=== PATIENT | female | born 1945 | race Caucasian/White ===

== ENCOUNTER 2023-04-18 17:41 | Emergency (ER) | payer MEDICARE, OTHER, SELFPAY ==
[2023-04-18 17:57] VITALS: BP 188/89; PULSE 82; RESP 14; TEMP 37.1; O2SAT 97; BMI 31.0
--- NOTE | 2023-04-18 18:12 | ED_ITS ---
HPI - General Adult General Chief complaint: Head Injury Stated complaint: FALL, FACIAL PAIN, EPITAXIS Time Seen by Provider: 04/18/23 18:12 Source: patient Mode of arrival: walk-in Limitations: no limitations History of Present Illness HPI narrative: The patient presented to us after she tripped on the wet grass and fell face downward hitting her nose and face to the floor, the patient started bleeding right away and that was the reason that brought her over here she initially went to an urgent care who told her that she had to come to the ER because she was bleeding The patient bleeding already resolved she does not take any blood thinner and she denied other complaints or any loss of consciousness Related Data Home Medications Medication Instructions Recorded Confirmed amlodipine 5 mg tablet 5 mg PO BID 04/18/23 04/18/23 Previous Rx's Medication Instructions Recorded acetaminophen 650 mg 650 mg PO Q8H PRN pain #20 tabs 04/18/23 tablet,extended release (Tylenol 8 Hour) clindamycin HCl 150 mg capsule 150 mg PO TID #9 caps 04/18/23 Allergies Allergy/AdvReac Type Severity Reaction Status Date / Time Penicillins Allergy Verified 04/18/23 17:56 tetracycline Allergy Verified 04/18/23 17:56 Review of Systems ROS Status of ROS 10 or more systems reviewed and unremarkable except as noted in history and below PFSH PFSH Social History Smoking status: Never smoker Exam Narrative Exam Narrative: Nurses notes and vital signs reviewed and patient is not hypoxic. General: Well-appearing and in no apparent distress. Skin: Warm, dry, no pallor noted. No rash. Head: Normocephalic, the patient have a small abrasion to the nasal bridge there is mild tenderness upon palpation of the nasal bridge and small abrasion just above the upper lip no interseptum hematoma , no deviation of the nasal bridge Neck: Supple, non-tender. Eye: Pupils are equal, round and EOMI. No scleral icterus. Ears, Nose, Mouth, and Throat: TM are clear, no nasal mucosal hypertrophy. Oral mucosa is moist, no posterior oropharynx erythema, uvula is mid-line Cardiovascular: Regular Rate and Rhythm without murmur, gallop or rub. Respiratory: No accessory muscle use or respiratory distress. Lungs are clear to auscultation, no wheezing, rales or rhonchi Chest Wall: no tenderness Back: No midline thoracic or lumbar vertebral tenderness. No CVA tenderness Musculoskeletal: normal ROM, no calf or popliteal tenderness, no lower extremity edema/swelling GI: Abdomen is soft, non-distended. Normal bowel sounds. No masses appreciated. No tenderness to palpation. No rebound, guarding, or rigidity noted. Neurological: A&O x4. No cranial nerve dysfunction observed. No truncal ataxia. Moves all extremities. Sensation intact. Psychiatric: Cooperative and interactive. Normal mood and affect. Constitutional Vital Signs, click to edit/add: Last Vital Signs Temp 98.7 F 04/18/23 17:57 Pulse 82 04/18/23 17:57 Resp 14 04/18/23 17:57 BP 188/89 H 04/18/23 17:57 Pulse Ox 97 04/18/23 17:57 O2 Del Method Room Air 04/18/23 17:57 Course Vital Signs Vital signs: Vital Signs Temperature 98.7 F 04/18/23 17:57 Pulse Rate 82 04/18/23 17:57 Respiratory Rate 14 04/18/23 17:57 Blood Pressure 188/89 H 04/18/23 17:57 Pulse Oximetry 97 04/18/23 17:57 Oxygen Delivery Method Room Air 04/18/23 17:57 Temperature 98.7 F 04/18/23 17:57 Pulse Rate 82 04/18/23 17:57 Respiratory Rate 14 04/18/23 17:57 Blood Pressure 188/89 H 04/18/23 17:57 Pulse Oximetry 97 04/18/23 17:57 Oxygen Delivery Method Room Air 04/18/23 17:57 Medical Decision Making [facility] Narrative Medical decision making narrative: With the patient facial trauma I initially recommended a CAT scan for the face but the patient did not want to go through imaging and I did recommend and then a coverage with clindamycin for 3 days as a prophylaxis in addition to Tylenol for pain and ice treatment The patient to come back in case of any symptoms or concerns her bleeding right now was controlled and she was instructed about coming back in case of any new symptoms and since the patient does not want any imaging right now she can come back to us in couple days in case of any continuous pain The patient is to follow up with primary care physician in next 2-3 days or to return to the emergency department should any of the signs or symptoms worsen or new symptoms develop. The patient agrees with the following Diagnosis and Treatment plan and the patient will be discharged home. Discharge Plan Discharge Chief Complaint: Head Injury Clinical Impression: Blunt trauma of face, Contusion of nose Patient Disposition: Home, Self-Care Time of Disposition Decision: 18:14 Prescriptions / Home Meds: New clindamycin HCl 150 mg capsule 150 mg PO TID Qty: 9 0RF Rx Instructions: for 3 days acetaminophen [Tylenol 8 Hour] 650 mg tablet extended release 650 mg PO Q8H PRN (Reason: pain) Qty: 20 0RF No Action amlodipine 5 mg tablet 5 mg PO BID Instructions: Nosebleed (ED), Nasal Contusion (ED) Stand Alone Forms: Portal Instructions Referrals: Logan Naidu MD [Primary Care Provider] - 1 week
== END 2023-04-18 18:21 | disposition home or self-care (01) ==
PROVIDERS: Emergency Provider Emergency Medicine; PCP Family Medicine
DX: S00.33XA Contusion of nose, initial encounter (principal); S09.93XA Unspecified injury of face, initial encounter; W01.10XA Fall on same level from slipping, tripping and stumbling with subsequent striking against unspecified object, initial encounter; Z79.899 Other long term (current) drug therapy; Z90.49 Acquired absence of other specified parts of digestive tract
CPT/HCPCS: 99283

== ENCOUNTER 2023-07-12 14:09 | Emergency (ER) | payer MEDICARE, OTHER, SELFPAY ==
[2023-07-12 14:15] VITALS: BP 147/78; PULSE 83; RESP 20; TEMP 36.8; O2SAT 99; BMI 31.6
--- NOTE | 2023-07-12 15:18 | ED_ITS ---
HPI - General Adult General Chief complaint: Dental/Oral Stated complaint: LUMPS AND BUMPS TO NECK Time Seen by Provider: 07/12/23 14:26 History of Present Illness HPI narrative: patient is a 78-year-old female who presents to the emergency department for a two day history of swelling on the right side of the jaw. Patient states she had a known salivary stone which was evaluated by ENT in the past. She states occasionally she would feel swelling which would resolve quickly to the area. In the last two days she has noticed very tender, painful swelling under the tongue into the right side of the jaw. She states she felt a stone under her tongue and removed it with a toothpick. She states after removing the stone she has had purulent drainage from under her tongue and she feels as though the area under her tongue in the right side of the jaw or swollen. She has had no fevers or vomiting. She denies any difficulty swallowing or tolerating her secretions. No shortness of breath. Related Data Home Medications Medication Instructions Recorded Confirmed amlodipine 5 mg tablet 5 mg PO BID 04/18/23 04/18/23 Previous Rx's Medication Instructions Recorded acetaminophen 650 mg 650 mg PO Q8H PRN pain #20 tabs 04/18/23 tablet,extended release (Tylenol 8 Hour) clindamycin HCl 150 mg capsule 150 mg PO TID #9 caps 04/18/23 clindamycin HCl 150 mg capsule 300 mg PO Q6H 10 days #80 caps 07/12/23 dexamethasone 4 mg tablet 4 mg PO BID 3 days #6 tabs 07/12/23 hydrocodone 5 mg-acetaminophen 325 1 tab PO Q6H PRN pain #12 tabs 07/12/23 mg tablet ondansetron 4 mg disintegrating 4 mg PO Q6H PRN nausea and 07/12/23 tablet vomiting #12 tabs Allergies Allergy/AdvReac Type Severity Reaction Status Date / Time Penicillins Allergy Verified 04/18/23 17:56 tetracycline Allergy Verified 04/18/23 17:56 Review of Systems ROS Constitutional Denies: fever or chills Ears, nose, mouth, and throat Denies: throat pain Respiratory Denies: shortness of breath or cough Gastrointestinal Denies: nausea or vomiting Musculoskeletal Denies: back pain Integumentary/Breast Denies: rash Hematologic/Lymphatic Denies: easy bruising PFSH PFSH Social History Smoking status: Never smoker Exam Narrative Exam Narrative: Gen.: Awake, alert, in no distress Head: Normocephalic, atraumatic ENT: Moist mucous membranes; soft tissue space under the tongue is soft, salivary gland is edematous with yellow purulence noted at the opening of the salivary gland. Right mandible is edematous and tender, no trismus or drooling. Clear speech Respiratory: No respiratory distress Extremities: Moves extremities equally Psych: Normal mood and affect Neuro: No focal neuro deficit Skin: Warm, dry, intact Constitutional Vital Signs, click to edit/add: Last Vital Signs Temp 98.2 F 07/12/23 14:15 Pulse 83 07/12/23 14:15 Resp 20 07/12/23 14:15 BP 147/78 H 07/12/23 14:15 Pulse Ox 99 07/12/23 14:15 O2 Del Method Room Air 07/12/23 14:15 Course Vital Signs Vital signs: Vital Signs Temperature 98.2 F 07/12/23 14:15 Pulse Rate 83 07/12/23 14:15 Respiratory Rate 20 07/12/23 14:15 Blood Pressure 147/78 H 07/12/23 14:15 Pulse Oximetry 99 07/12/23 14:15 Oxygen Delivery Method Room Air 07/12/23 14:15 Temperature 98.2 F 07/12/23 14:15 Pulse Rate 83 07/12/23 14:15 Respiratory Rate 20 07/12/23 14:15 Blood Pressure 147/78 H 07/12/23 14:15 Pulse Oximetry 99 07/12/23 14:15 Oxygen Delivery Method Room Air 07/12/23 14:15 Medical Decision Making MDM Narrative Medical decision making narrative: patient treated with IV fluids, clindamycin, Decadron. Lab studies are unremarkable and CT soft tissue of the neck show sialoadenitis with no evidence of William angina or submandibular soft tissue infection. Patient will be placed on clindamycin as she is ALLERGIC to penicillin, short course of Decadron given for home. She has a known thyroid lesion that is currently being evaluated by ENT and she has an upcoming appointment for follow-up of this area. She is encouraged to take her antibiotics, apply warm compresses to the right mandibular area and return to the Emergency Room if symptoms change or worsen Medical Records Medical records reviewed: Yes I reviewed the patient's medical records Lab Data Lab results reviewed: Yes I reviewed the patient's lab results Labs: Lab Results 07/12/23 Range/Units 15:30 WBC 11.7 H (4.0-11.0) 10^3/uL RBC 4.02 L (4.20-5.40) 10^6/uL Hgb 12.3 (12.0-16.0) g/dL Hct 37.5 (36.0-48.0) % MCV 93.3 (81.0-99.0) fL MCH 30.6 (26.7-34.0) pg MCHC 32.8 (29.9-35.2) g/dL RDW 13.0 (11.0-15.0) % Plt Count 197 (150-450) 10^3/uL MPV 11.3 (9.5-13.5) fL Neut % (Auto) 73.1 (43.0-75.0) % Lymph % (Auto) 16.5 L (20.5-60.0) % Grayson % (Auto) 7.4 (1.7-12.0) % Eos % (Auto) 2.3 (0.9-7.0) % Baso % (Auto) 0.5 (0.2-2.0) % Neut # (Auto) 8.5 H (1.4-6.5) 10^3/uL Lymph # (Auto) 1.9 (1.2-3.8) 10^3/uL Grayson # (Auto) 0.9 H (0.3-0.8) 10^3/uL Eos # (Auto) 0.3 (0.0-0.7) 10^3/uL Baso # (Auto) 0.1 (0.0-0.1) 10^3/uL Abs Immat Gran (auto) 0.02 (0.00-0.03) 10^3/uL Imm/Tot Granulo (auto) 0.2 (0.0-0.5) % Sodium 135 L (136-145) mmol/L Potassium 3.7 (3.5-5.1) mmol/L Chloride 101 (98-107) mmol/L Carbon Dioxide 24.3 (21.0-32.0) mmol/L Anion Gap 13.4 BUN 24.0 H (7.0-18.0) mg/dL Creatinine 1.20 H (0.55-1.02) mg/dL Est GFR ( Amer) 52 L (>=60) Est GFR (Non-Af Amer) 43 L (>=60) BUN/Creatinine Ratio 20.0 Glucose 95 (74-106) mg/dL Calcium 10.1 (8.5-10.1) mg/dL Imaging Data CT neck: Attestation: I have reviewed the pertinent imaging results. Radiologist's impression: Procedure: CT soft tissue neck w con CT soft tissue neck w con, 07/12/2023 4:56 PM EDT INDICATION: Soft tissue infection right jaw COMPARISON: There is no appropriate prior study for comparison. TECHNIQUE: CT imaging of the neck were acquired without and with contrast. Supplemental 2D reformatted images were generated and reviewed as needed. Dose reduction techniques were achieved by using automated exposure control and/or adjustment of mA and/or kV according to patient size and/or use of iterative reconstruction technique. FINDINGS: There is status post bilateral lens replacement. The sensitivity of study has been decreased due to streak artifacts from dental fillings. No abnormality of the base of skull is noted. The right submandibular gland is mildly larger than left with mild adjacent fatty stranding and no definite lesion or sialolithiasis. Mild left submandibular nonobstructive sialolithiasis is noted. There is mild fatty stranding in the right submandibular region with multiple level 1B lymph nodes measuring up to 1.1 cm in the largest axis. No fluid collection is noted. The nasopharynx, oropharynx, hypopharynx and oral cavity are unremarkable. The parotids are unremarkable. The larynx is unremarkable. No abnormality of paraglottic fat is noted. There is no other lymph node enlargement by size criteria. No retropharyngeal lymph node is noted. The thyroid gland is containing multiple nodules up to 1.5 cm nodule in the right lobe. The visualized portions of lungs are unremarkable. There is no suspicious osteolytic or osteoblastic lesion. There are multilevel degenerative changes of cervical spine. Moderate degenerative changes of the right TMJ. IMPRESSION: Enlargement of the right submandibular gland with mild fatty stranding and adjacent lymphadenopathy likely suggesting of sialoadenitis. No fluid collection. No sialolithiasis on the right. Right large thyroid nodule. An ultrasound is recommended for further evaluation. Electronically authenticated by: MARLENY SEBLE Date: 07/12/2023 18:14 Discharge Plan Discharge Chief Complaint: Dental/Oral Clinical Impression: Acute sialoadenitis, Atypical face pain Patient Disposition: Home, Self-Care Time of Disposition Decision: 18:37 Condition: Good Prescriptions / Home Meds: New clindamycin HCl 150 mg capsule 300 mg PO Q6H 10 Days Qty: 80 0RF dexamethasone 4 mg tablet 4 mg PO BID 3 Days Qty: 6 0RF hydrocodone-acetaminophen 5-325 mg tablet 1 tab PO Q6H PRN (Reason: pain) Qty: 12 0RF Rx Instructions: DX K11.20 ondansetron 4 mg tablet,disintegrating 4 mg PO Q6H PRN (Reason: nausea and vomiting) Qty: 12 0RF No Action amlodipine 5 mg tablet 5 mg PO BID clindamycin HCl 150 mg capsule 150 mg PO TID Qty: 9 0RF Rx Instructions: for 3 days acetaminophen [Tylenol 8 Hour] 650 mg tablet extended release 650 mg PO Q8H PRN (Reason: pain) Qty: 20 0RF Instructions: Sialoadenitis (ED), Atypical Facial Pain (ED) Additional Instructions: PLEASE TAKE A PROBIOTIC WITH YOUR ANTIBIOTIC AND FOLLOW UP WITH YOUR ENT SCHEDULED Stand Alone Forms: Portal Instructions Referrals: Logan Naidu MD [Primary Care Provider] - 1 week
[2023-07-12] MEDS: DEXAMETHASONE SOD PHOS 10 MG/ML VIAL IV (15:39)
[2023-07-12] MEDS: CLINDAMYCIN PHOSPHATE/D5W 600 MG/50 ML PIGGYBACK 100 MG IV (15:39)
[2023-07-12 15:55] LABS: Basophils Absolute Auto 0.1 10^3/uL (0.0-0.1); Basophils Percent Auto 0.5 % (0.2-2.0); Eosinophils Absolute Auto 0.3 10^3/uL (0.0-0.7); Eosinophils Percent Auto 2.3 % (0.9-7.0); Hematocrit 37.5 % (36.0-48.0); Hemoglobin 12.3 g/dL (12.0-16.0); Immature Granulocytes Abs Auto 0.02 10^3/uL (0.00-0.03); Immature Granulocytes Pct Auto 0.2 % (0.0-0.5); Lymphocytes Absolute Auto 1.9 10^3/uL (1.2-3.8); Lymphocytes Percent Auto 16.5 % (20.5-60.0); Mean Corpuscular HGB Conc 32.8 g/dL (29.9-35.2); Mean Corpuscular Hemoglobin 30.6 pg (26.7-34.0); Mean Corpuscular Volume 93.3 fL (81.0-99.0); Mean Platelet Volume 11.3 fL (9.5-13.5); Monocytes Absolute Auto 0.9 10^3/uL (0.3-0.8); Monocytes Percent Auto 7.4 % (1.7-12.0); Neutrophils Absolute Auto 8.5 10^3/uL (1.4-6.5); Neutrophils Percent Auto 73.1 % (43.0-75.0); Platelet Count 197 10^3/uL (150-450); Red Blood Count 4.02 10^6/uL (4.20-5.40); White Blood Count 11.7 10^3/uL (4.0-11.0)
[2023-07-12 16:40] LABS: Anion Gap 13.4; Calcium 10.1 mg/dL (8.5-10.1); Carbon Dioxide 24.3 mmol/L (21.0-32.0); Chloride 101 mmol/L (98-107); Estimated GFR (African America 52 (>=60); Estimated GFR (Non-African Ame 43 (>=60); Glucose 95 mg/dL (74-106); Potassium 3.7 mmol/L (3.5-5.1); Sodium 135 mmol/L (136-145)
--- NOTE | 2023-07-12 17:04 | CT_ITS ---
The [address] [address] Patient Name: ALEKSANDER KIRKPATRICK MRN: [id number] date: 1945 Sex: F Assigned Patient Location: ER Current Patient Location: Accession/Order Number: [id number] Exam Date: 07/12/2023 16:56 Report Date: 07/12/2023 18:14 At the request of: FACUNDO SANON Procedure: CT soft tissue neck w con CT soft tissue neck w con, 07/12/2023 4:56 PM EDT INDICATION: Soft tissue infection right jaw COMPARISON: There is no appropriate prior study for comparison. TECHNIQUE: CT imaging of the neck were acquired without and with contrast. Supplemental 2D reformatted images were generated and reviewed as needed. Dose reduction techniques were achieved by using automated exposure control and/or adjustment of mA and/or kV according to patient size and/or use of iterative reconstruction technique. FINDINGS: There is status post bilateral lens replacement. The sensitivity of study has been decreased due to streak artifacts from dental fillings. No abnormality of the base of skull is noted. The right submandibular gland is mildly larger than left with mild adjacent fatty stranding and no definite lesion or sialolithiasis. Mild left submandibular nonobstructive sialolithiasis is noted. There is mild fatty stranding in the right submandibular region with multiple level 1B lymph nodes measuring up to 1.1 cm in the largest axis. No fluid collection is noted. The nasopharynx, oropharynx, hypopharynx and oral cavity are unremarkable. The parotids are unremarkable. The larynx is unremarkable. No abnormality of paraglottic fat is noted. There is no other lymph node enlargement by size criteria. No retropharyngeal lymph node is noted. The thyroid gland is containing multiple nodules up to 1.5 cm nodule in the right lobe. The visualized portions of lungs are unremarkable. There is no suspicious osteolytic or osteoblastic lesion. There are multilevel degenerative changes of cervical spine. Moderate degenerative changes of the right TMJ. CT/CT soft tissue neck w con IMPRESSION: Enlargement of the right submandibular gland with mild fatty stranding and adjacent lymphadenopathy likely suggesting of sialoadenitis. No fluid collection. No sialolithiasis on the right. Right large thyroid nodule. An ultrasound is recommended for further evaluation. Electronically authenticated by: MARLENY PRUETT Date: 07/12/2023 18:14
== END 2023-07-12 18:49 | disposition home or self-care (01) ==
PROVIDERS: Physician Assistant; Emergency Provider Emergency Medicine; PCP Family Medicine
DX: K11.21 Acute sialoadenitis (principal); G50.1 Atypical facial pain
CPT/HCPCS: 36415; 70491; 80048; 85025; 96365; 96375; 99285; J1100; Q9967

== ENCOUNTER 2024-02-15 15:45 | Emergency (ER) | payer MEDICARE, OTHER, SELFPAY ==
[2024-02-15 16:00] VITALS: BP 170/81; PULSE 74; TEMP 36.9; O2SAT 98
--- NOTE | 2024-02-15 18:06 | ED.SKABFB1 ---
HPI - Skin/Abscess/Foreign Bdy General Chief complaint: Skin/Abscess/Foreign Body Stated complaint: LUMP Back of NECK Time Seen by Provider: 02/15/24 17:43 Source: patient Mode of arrival: walk-in Limitations: no limitations History of Present Illness HPI narrative: Patient is an 79-year-old female who presents to the emergency department for continued swelling and pain to the back of the scalp. She was seen for suspected bug bites at urgent care 2 days ago and started on Keflex. She states her pain was worse today and she returned to urgent care but they sent her to the ER. She has had no fevers or vomiting. No drainage from the area. Related Data Home Medications ?Medication ?Instructions ?Recorded ?Confirmed amlodipine 5 mg tablet 5 mg PO BID 04/18/23 04/18/23 Previous Rx's ?Medication ?Instructions ?Recorded acetaminophen 650 mg 650 mg PO Q8H PRN pain #20 tabs 04/18/23 tablet,extended release (Tylenol 8 Hour) clindamycin HCl 150 mg capsule 150 mg PO TID #9 caps 04/18/23 clindamycin HCl 150 mg capsule 300 mg (2 x 150 mg) PO Q6H 10 days 07/12/23 #80 caps dexamethasone 4 mg tablet 4 mg PO BID 3 days #6 tabs 07/12/23 hydrocodone 5 mg-acetaminophen 325 1 tab PO Q6H PRN pain #12 tabs 07/12/23 mg tablet ondansetron 4 mg disintegrating 4 mg PO Q6H PRN nausea and 07/12/23 tablet vomiting #12 tabs clindamycin HCl 150 mg capsule 300 mg (2 x 150 mg) PO Q6H 10 days 02/15/24 #80 caps hydrocodone 5 mg-acetaminophen 325 1 tab PO Q6H PRN pain 3 days #12 02/15/24 mg tablet tabs mupirocin 2 % topical ointment 1 applic topical BID #15 grams 02/15/24 Allergies Allergy/AdvReac Type Severity Reaction Status Date / Time Penicillins Allergy Verified 04/18/23 17:56 tetracycline Allergy Verified 04/18/23 17:56 Review of Systems ROS Constitutional Denies: fever or chills Ears, nose, mouth, and throat Denies: throat pain or nasal congestion Respiratory Denies: shortness of breath Gastrointestinal Denies: nausea or vomiting Integumentary/Breast Denies: rash Neurological Denies: headache Hematologic/Lymphatic Denies: easy bruising or easy bleeding PFSH PFSH Social History Smoking status: Never smoker Exam Narrative Exam Narrative: Gen.: Awake, alert, in no distress Head: Normocephalic, atraumatic, Posterior scalp at the base of the skull with a red erythematous indurated area, central folliculitis and 2 small follicular areas inferiorly. No fluctuance or open wounds or drainage. ENT: Moist mucous membranes Respiratory: No respiratory distress Extremities: Moves extremities equally Psych: Normal mood and affect Neuro: No focal neuro deficit Skin: Warm, dry, intact Constitutional Vital Signs, click to edit/add: Last Vital Signs Temp 98.4 F 02/15/24 16:00 Pulse 74 02/15/24 16:00 Resp 17 02/15/24 16:00 BP 170/81 H 02/15/24 16:00 Pulse Ox 98 02/15/24 16:00 Course Vital Signs Vital signs: Vital Signs Temperature 98.4 F 02/15/24 16:00 Pulse Rate 74 02/15/24 16:00 Respiratory Rate 17 02/15/24 16:00 Blood Pressure 170/81 H 02/15/24 16:00 Pulse Oximetry 98 02/15/24 16:00 Temperature 98.4 F 02/15/24 16:00 Pulse Rate 74 02/15/24 16:00 Respiratory Rate 17 02/15/24 16:00 Blood Pressure 170/81 H 02/15/24 16:00 Pulse Oximetry 98 02/15/24 16:00 MDM - Skin/Abscess/Foreign Bdy MDM Narrative Medical decision making narrative: Exam is consistent with indurated abscess, no indication for incision and drainage at this time, I suspect the patient has folliculitis and she will be given you Perot send in addition to clindamycin and pain medication. Continue warm compresses and follow-up with PCP as scheduled. Return to the ER if symptoms change or worsen Medical Records Attestation: I reviewed the patient's medical records. Discharge Plan Discharge Stand Alone Forms: Portal Instructions Chief Complaint: Skin/Abscess/Foreign Body Clinical Impression: Folliculitis Patient Disposition: Home, Self-Care Time of Disposition Decision: 18:04 Condition: Good Prescriptions / Home Meds: New clindamycin HCl 150 mg capsule 300 mg PO Q6H 10 Days Qty: 80 0RF hydrocodone-acetaminophen 5-325 mg tablet 1 tab PO Q6H PRN (Reason: pain) 3 Days Qty: 12 0RF Rx Instructions: L66.2 mupirocin 2 % ointment 1 applic topical BID Qty: 15 0RF No Action amlodipine 5 mg tablet 5 mg PO BID clindamycin HCl 150 mg capsule 150 mg PO TID Qty: 9 0RF Rx Instructions: for 3 days acetaminophen [Tylenol 8 Hour] 650 mg tablet extended release 650 mg PO Q8H PRN (Reason: pain) Qty: 20 0RF clindamycin HCl 150 mg capsule 300 mg PO Q6H 10 Days Qty: 80 0RF dexamethasone 4 mg tablet 4 mg PO BID 3 Days Qty: 6 0RF hydrocodone-acetaminophen 5-325 mg tablet 1 tab PO Q6H PRN (Reason: pain) Qty: 12 0RF Rx Instructions: DX K11.20 ondansetron 4 mg tablet,disintegrating 4 mg PO Q6H PRN (Reason: nausea and vomiting) Qty: 12 0RF Print Language: Belarusian Instructions: Folliculitis (ED), Abscess (ED) Additional Instructions: Please continue warm compresses -Stop keflex and start Clindamycin Referrals: Logan Naidu MD [Primary Care Provider] - 1 week
[2024-02-15 18:11] VITALS: BP 155/88
== END 2024-02-15 18:11 | disposition home or self-care (01) ==
PROVIDERS: Emergency Provider Emergency Medicine; PCP Family Medicine
DX: L73.9 Follicular disorder, unspecified (principal)
CPT/HCPCS: 99283

== ENCOUNTER 2024-04-23 09:46 | Outpatient (RCR) | payer MEDICARE, OTHER, SELFPAY | END 2024-07-25 12:57 | disposition home or self-care (01) | LOC: PT 09:46 | PROVIDERS: PCP Family Medicine; Visit Provider Family Medicine | DX: R26.81 Unsteadiness on feet (principal) | CPT/HCPCS: 97012; 97110; 97112; 97113; 97140; 97162 ==

== ENCOUNTER 2025-03-06 08:57 | Emergency (ER) | payer MEDICARE, SELFPAY ==
--- OUTSIDE RECORDS SUMMARY | 2025-02-28 06:55 | XMS_ITS | Continuity of Care Document ---
Author Organization [facility] Address [address] [place] [address] Phone Support Name Relationship Address Phone Kaylyn Galvin Emergency Contact [address] [place] [address] Logan Naidu MD Personal Relationship [address] [facility] [place] [address] Brielle Salmon APRN Personal Relationship [address] [facility] [place] [address] Care Teams Patient Care Team Team Status: Active Member Role Status Dates Logan Naidu MD Primary Care Provider Active Patient Care Team Team Status: Inactive Member Role Status Dates Logan Naidu MD Primary Care Provider Active S tart: February 28, 2025 End: February 28, 2025 MIGUELANGEL Ravi RN HEEL STIFFENER-C Attending Provider Active Start: February 28 End: February 28, 2025 Chief Complaint and Reason for Visit Chief Complaint Admit Date Pain down left side back to leg February 10:31am Allergies, Adverse Reactions, Alerts Allergen Type Severity Reaction Last Updated Verified Status penicillin G benzathine Allergy Unknown unknown February 28, 2025 10:32am Yes Active tetracycline Allergy Unknown anaphylaxis February 28 10:32am Yes Active Penicillins Allergy Unknown Unknown Reaction February 10:32am Yes Active Tetracyclines Allergy Unknown Rash February 28 10:32am Yes Active Social History Smoking Status Status Start Date End Date Date of Observa tion Never smoked tobacco (finding) March 25, 2024 2:00pm Observation Status Observation Response Date of Response Patient Sex Female February 28, 2025 1 0:55am Assigned Sex Female [birth year], 1 944 Family History Relationship Condition Age at Onset Recorded Date/T ervin father Heart disease Unknown Unknown mother Unknown Problems Active Problems Medical Problem Onset Date Status Chronic kidney disease, stage 3b Active Abscess or cellulitis of scalp A ctive Cancer, colon Active Chronic kidney disease, stage 3 unspecified Active Anemia Active Hyperuricemia Active Hyponatremia Active Nephrolithiasis Active Burning mouth syndrome Active High blood pressure Active Hypertensive nephropathy Active Hypomagnesemia Active Hypercalcemia Active Medications Medication Status Dose Units Route Directions Qty Days St art Date Stop Date End Date Instructions Amlodipine 5 mg tablet Active 5 MG PO Twice daily February 13, 2024 12:00a m Magnesium Oxide 250 mg magnesium tablet Active 1 TAB PO Daily February 13, 2024 12:00a m FreeTextSi tablet with a meal Orally Once a day; Note: Source Status: Taking; Provider: Andrés Babin ( ) Aspirin 81 mg tablet,delay ed release (DR/EC) Discont inued 81 MG PO Daily February 13, 2024 12:00a m February 28, 2025 10:42 am Multivitamin (Daily Multi-Vitami n) tablet Discont inued 1 TAB PO Daily February 13, 2024 12:00a m 2024 11:26 am Albuterol Sulfate 90 mcg/actuatio n HFA aerosol inhaler Discont inued 2 PUFF INHALA TION Four times daily February 13, 2024 12:00a m March 25, 2024 1:56p m FreeTextSi puffs Inhalation 4 times a day prn; Note: Source Status: Not-Takingund efinedPRN; Refills: 0; Provider: Leora Kerr Zinc Sulfate 50 mg zinc (220 mg) tablet Discont inued 50 MG PO Twice daily February 13, 2024 12:00a m March 25, 2024 1:57p m Cephalexin 500 mg capsule Discont inued 500 MG PO Three times daily 13 04February 13, 2024 12:00a m March 25, 2024 1:55p m Zinc Sulfate 50 mg zinc (220 mg) tablet Discont inued 50 MG PO Once March 25, 2024 1:56pm February 28, 2025 10:42 am Carvedilol 6.25 mg tablet Active MG PO February 28, 2025 12:00a m Immunizations Immunization Event Date Not Given Reason Dose Number Visual Merchandising Manager Lot Number Vaccine Information Statement (VIS) Detail COVID-19 mRNA-1273 (Moderna) November 11, 2020 COVID-19 mRNA-1273 (Moderna) December 07, 2020 COVID-19 mRNA-1273 (Moderna) August 02, 2021 COVID-19 mRNA Bivalent Booster (Moderna) September 28, 2022 Vital Signs Vital Reading Result Reference Range Collection Date/Time Height 61 [in_i] February 28, 2025 10:42am Weight 77.33 kg February 28, 2025 10:42am Body Temperature 97.9 [degF] 97.6-99.0 February 28, 2 025 10:42am Heart Rate 68 /min 60-100 February 28, 2025 10:42am Respiratory rate 19 /min 12-24 February 28, 2 025 10:42am Oxygen saturation by Pulse oximetry 98 % 95-100 February 28, 2025 10:42 am BP Systolic 130 mm[Hg] 100-140 February 28, 2025 10:42am BP Diastolic 70 mm[Hg] 60-100 February 28, 2025 10:42am BMI (Body Mass Index) 32.2 kg/m2 February 282024 10:42am Advance Directives Advance Directive Response Recorded Date/ Time Advance Directives No July 25, 2023 5:40pm Insurance Providers Guarantor Lisa Barger Address [address] [place] [phone] Contact Info. Home Phone: Payer Policy Id Coverage Id Subscriber's Name Subscriber Id Effective Date Expiration Date Medicare [id number] Lisa Barger [id number] [employer] SSI [id number] Lisa Barger [id number] Encounters Encounter Location(s) Arrival/Admit Date Discharge/Depart Date Provider(s) Departed Physician/Prov ider Office Visit [facility] [place] February 28, 2025 10:31am February 28, 2025 10:55am Brielle Salmon APRN
[2025-03-06 09:04] VITALS: BP 172/68; PULSE 69; TEMP 36.4; O2SAT 98; BMI 31.9
--- OUTSIDE RECORDS SUMMARY | 2025-03-06 09:10 | XMS_ITS | Encounter Summary ---
Author Organization [facility] Address [address] [place] [address] Care Team Providers Care Coil Repair Technician Name Role Phone Saul Turner Primary Care Provider + [phone] Anamika Moore RN Unavailable [phone] Logan Naidu MD Primary Care Provider [phone] Source Comments In the event this information is protected by the Federal Confidentiality of Alcohol and Drug AbusePatient Records regulations: The Federal rules restrict any use of the information to criminally investigate or prosecute any alcohol or drug abuse patient.[facility] Encounter Details Date Type Department Care Team (Late st Contact Info) Description 07/14/2014 Patient Msg Medical Records [address] [place] [address] Provider, Cc RE: Patient Registration Completed Social History Tobacco Use Types Packs/Day Years Used Date Smoking Tobacco: Never Smokeless Tobacco: Never Alcohol Use Standard Drinks/Week Comments No 0 (1 standard drink = 0.6 oz pur e alcohol) Comments No Sex and Gender Information Value Date Recorded Sex Assigned at Female 05/01/2019 10:09 PM EDT Legal Sex Female 1:57 PM EDT Gender Identity Female 05/01/2019 10:09 PM EDT Sexual Orientation Straight 05/01/2019 10 :09 PM EDT documented as of this encounter Functional Status * Are you deaf or do you have serious difficulty hearing? Answer Date of Assessment Author No 07/07/2014 9:39 AM EDT Aj Kincaid (Rn)(Hist), RN * Are you blind or do you have serious difficulty seeing, even when wearing glasses? Answer Date of Assessment Author No 07/07/2014 9:39 AM EDT Aj Kincaid (Rn)(Hist), RN * Do you have serious difficulty walking or climbing stairs? Answer Date of Assessment Author No 07/07/2014 9:39 AM EDT Aj Kincaid (Rn)(Hist), RN * Do you have difficulty dressing or bathing? Answer Date of Assessment Author No 07/07/2014 9:39 AM EDT Aj Kincaid (Rn)(Hist), RN * Because of a physical, mental, or emotional condition, do you have difficulty doing errands alone such as visiting a doctor's office or shopping? Answer Date of Assessment Author No 07/07/2014 9:39 AM EDT Aj Kincaid (Rn)(Hist), RN documented as of this encounter Mental Status * Because of a physical, mental, or emotional condition, do you have serious difficulty concentrating, remembering, or making decisions? Answer Entry Date Author No 07/07/2014 9:39 AM EDT Aj Kincaid (Rn)(Hist), RN documented in this encounter Plan of Treatment Upcoming Encounters Date Type Department Care Team (Late st Contact Info) Description 07/23/2025 9:00 AM EDT Office Visit [facility] [address] [facility] [place] [address] 1 year follow up 07/30/2025 10:00 AM EST Visit (SP) Office Hematology/Oncology [address] [place] [address] Arnol Martinez MD [address] [facility] [place] [address] 1 year follow up documented as of this encounter Visit Diagnoses Not on filedocumented in this encounter Care Teams Coil Repair Technician Relationship Specialty Start Date End Date Saul Turner [address] [place] [phone] PCP - General Family Medicine 07/15/13 12/14/20 Logan Naidu MD [address] [place] [address] PCP - General Family Medicine 12/15/20 Anamika Moore, RN [address] [place] [address] Transitional Lecturer In Marketing 03/02/15 03/09/15 documented as of this encounter
--- OUTSIDE RECORDS SUMMARY | 2025-03-06 09:10 | XMS_ITS | Encounter Summary ---
Author Organization [facility] Address [address] [place] [address] Care Team Providers Care Medical Assembler Name Role Phone Logan Naidu MD Primary Care Provider [phone] Source Comments In the event this information is protected by the Federal Confidentiality of Alcohol and Drug AbusePatient Records regulations: The Federal rules restrict any use of the information to criminally investigate or prosecute any alcohol or drug abuse patient.[facility] Encounter Details Date Type Department Care Team (Late st Contact Info) Description 10/09/2023 Patient Msg Colorectal Surgery [address] [place] [id number] Provider, Ccf Study Survey Social History Tobacco Use Types Packs/Day Years Used Date Smoking Tobacco: Never Smokeless Tobacco: Never Alcohol Use Standard Drinks/Week Comments No 0 (1 standard drink = 0.6 oz pur e alcohol) PHQ-2 Answer Date Recorded PHQ-2 score 0 07/31/2023 Area Deprivation Index Answer Date Michael rded National Score (1-100), lower number is lower ri sk 76 01/25/2023 State Score (1-10), lower number is lower risk 6 01/25/2023 Data from: https://www.neighborhoodatlas.medicine.[facility]/. Last address used for calculation [address] 01/25/2023 Comments No Sex and Gender Information Value Date Recorded Sex Assigned at Female 05/01/2019 10:09 PM EDT Legal Sex Female 1:57 PM EDT Gender Identity Female 05/01/2019 10:09 PM EDT Sexual Orientation Straight 05/01/2019 10 :09 PM EDT documented as of this encounter Functional Status * Are you deaf or do you have serious difficulty hearing? Answer Date of Assessment Author No 04/26/2015 3:23 PM EDT Singh Whitt * Are you blind or do you have serious difficulty seeing, even when wearing glasses? Answer Date of Assessment Author No 04/26/2015 3:23 PM EDT Singh Whitt * Do you have serious difficulty walking or climbing stairs? Answer Date of Assessment Author No 04/26/2015 3:23 PM EDT Singh Whitt * Do you have difficulty dressing or bathing? Answer Date of Assessment Author No 04/26/2015 3:23 PM EDT Singh Whitt * Because of a physical, mental, or emotional condition, do you have difficulty doing errands alone such as visiting a doctor's office or shopping? Answer Date of Assessment Author No 04/26/2015 3:23 PM EDT Singh Whitt documented as of this encounter Mental Status * Because of a physical, mental, or emotional condition, do you have serious difficulty concentrating, remembering, or making decisions? Answer Entry Date Author No 04/26/2015 3:23 PM EDT Singh Whitt documented in this encounter Plan of Treatment Upcoming Encounters Date Type Department Care Team (Late st Contact Info) Description 07/23/2025 9:00 AM EDT Office Visit [facility] [address] [facility] [address] 1 year follow up 07/30/2025 10:00 AM EST Visit (SP) Office Hematology/Oncology [address] [place] [address] Arnol Martinez MD [address] [address] 1 year follow up documented as of this encounter Visit Diagnoses Not on filedocumented in this encounter Care Teams Medical Assembler Relationship Specialty Start Date End Date Logan Naidu MD [address] [place] [address] PCP - General Family Medicine 12/15/20 documented as of this encounter
--- OUTSIDE RECORDS SUMMARY | 2025-03-06 09:10 | XMS_ITS | Encounter Summary ---
Author Organization [facility] Address [address] [place] [address] Care Team Providers Care Sales Superintendent Name Role Phone Saul Turner Primary Care Provider + [phone] Anamika Moore RN Unavailable [phone] Logan Naidu MD Primary Care Provider [phone] Source Comments In the event this information is protected by the Federal Confidentiality of Alcohol and Drug AbusePatient Records regulations: The Federal rules restrict any use of the information to criminally investigate or prosecute any alcohol or drug abuse patient.[facility] Encounter Details Date Type Department Care Team (Late st Contact Info) Description 08/20/2013 Patient Msg Medical Records [address] [place] [address] Provider, Ccf [facility] Medical Procedure Social History Tobacco Use Types Packs/Day Years Used Date Smoking Tobacco: Never Alcohol Use Standard Drinks/Week Comments No 0 (1 standard drink = 0.6 oz pur e alcohol) Comments No Sex and Gender Information Value Date Recorded Sex Assigned at Female 05/01/2019 10:09 PM EDT Legal Sex Female 1:57 PM EDT Gender Identity Female 05/01/2019 10:09 PM EDT Sexual Orientation Straight 05/01/2019 10 :09 PM EDT documented as of this encounter Plan of Treatment Upcoming Encounters Date Type Department Care Team (Late st Contact Info) Description 07/23/2025 9:00 AM EDT Office Visit [facility] [address] [place] [address] [place] [address] 1 year follow up 07/30/2025 10:00 AM EST Visit (SP) Office Hematology/Oncology [address] [place] [address] Arnol Martinez MD [address] [place] [address] [place] [address] 1 year follow up documented as of this encounter Visit Diagnoses Not on filedocumented in this encounter Care Teams Sales Superintendent Relationship Specialty Start Date End Date Saul Turner [address] [place] [phone] PCP - General Family Medicine 07/15/13 12/14/20 Logan Naidu MD [address] [place] [address] PCP - General Family Medicine 12/15/20 Anamika Moore, RN [address] [phone] Transitional Paper Sales Representative 03/02/15 03/09/15 documented as of this encounter
--- OUTSIDE RECORDS SUMMARY | 2025-03-06 09:10 | XMS_ITS | Encounter Summary ---
Author Organization [facility] Address [address] [place] [address] Care Team Providers Care Mechanical Developer Prover Name Role Phone Logan Naidu MD Primary Care Provider [phone] Source Comments In the event this information is protected by the Federal Confidentiality of Alcohol and Drug AbusePatient Records regulations: The Federal rules restrict any use of the information to criminally investigate or prosecute any alcohol or drug abuse patient.[facility] Encounter Details Date Type Department Care Team (Late st Contact Info) Description 12/04/2022 Patient Msg Endocrinology [address] [place], [place] [id number] Ghazala Humphrey MD [address] [place] [address] Test results Social History Tobacco Use Types Packs/Day Years Used Date Smoking Tobacco: Never Smokeless Tobacco: Never Alcohol Use Standard Drinks/Week Comments No 0 (1 standard drink = 0.6 oz pur e alcohol) PHQ-2 Answer Date Recorded PHQ-2 score 0 07/24/2022 Area Deprivation Index Answer Date Michael rded National Score (1-100), lower number is lower ri sk 71 10/21/2022 State Score (1-10), lower number is lower risk N ot on file 10/21/2022 Data from: https://www.neighborhoodatlas.medicine.[facility]/. Last address used for calculation [address] 10/21/2022 Comments No Sex and Gender Information Value [...] No 04/26/2015 3:23 PM EDT Singh Whitt isnora * Are you blind or do you have serious difficulty seeing, even when wearing glasses? Answer Date of Assessment Author No 04/26/2015 3:23 PM EDT Singh Whitt ise * Do you have serious difficulty walking or climbing stairs? Answer Date of Assessment Author No 04/26/2015 3:23 PM EDT Singh Whitt ise * Do you have difficulty dressing or bathing? Answer Date of Assessment Author No 04/26/2015 3:23 PM EDT Singh Whitt ise * Because of a physical, mental, or emotional condition, do you have difficulty doing errands alone such as visiting a doctor's office or shopping? Answer Date of Assessment Author No 04/26/2015 3:23 PM EDT Singh Whitt isnora documented as of this encounter Mental Status * Because of a physical, mental, or emotional condition, do you have serious difficulty concentrating, remembering, or making decisions? Answer Entry Date Author No 04/26/2015 3:23 PM EDT Singh Whitt documented in this encounter Plan of Treatment Upcoming Encounters Date Type Department Care Team (Late st Contact Info) Description 07/23/2025 9:00 AM EDT Office Visit [facility] [address] [facility] [place] [address] 1 year follow up 07/30/2025 10:00 AM EST Visit (SP) Office Hematology/Oncology [address] [facility] [place] [address] Arnol Martinez MD [address] [place] [address] [place] [address] 1 year follow up documented as of this encounter Visit Diagnoses Not on filedocumented in this encounter Care Teams Mechanical Developer Prover Relationship Specialty Start Date End Date Logan Naidu MD [address] [place] [address] PCP - General Family Medicine 12/15/20 documented as of this encounter
--- OUTSIDE RECORDS SUMMARY | 2025-03-06 09:10 | XMS_ITS | Encounter Summary ---
Author Organization [facility] Address [address] [place] [address] Care Team Providers Care Cane Piler Name Role Phone Saul Turner Omar Primary Care Provider [phone] Logan Naidu MD Primary Care Provider [phone] Source Comments In the event this information is protected by the Federal Confidentiality of Alcohol and Drug AbusePatient Records regulations: The Federal rules restrict any use of the information to criminally investigate or prosecute any alcohol or drug abuse patient.[facility] Encounter Details Date Type Department Care Team (Latest Contact Info) Description 05/12/2019 H&P External-Non[facility]F Provider, External, PA-C Do not enter address information under generic External Provider. Social History Tobacco Use Types Packs/Day Years [...] Assessment Author No 04/26/2015 3:23 PM EDT Jose Eduardo Singh ise * Do you have difficulty dressing or bathing? Answer Date of Assessment Author No 04/26/2015 3:23 PM EDT Singh Whitt ise * Because of a physical, mental, or emotional condition, do you have difficulty doing errands alone such as visiting a doctor's office or shopping? Answer Date of Assessment Author No 04/26/2015 3:23 PM EDT Jose Eduardo Singh jackson documented as of this encounter Mental Status * Because of a physical, mental, or emotional condition, do you have serious difficulty concentrating, remembering, or making decisions? Answer Entry Date Author No 04/26/2015 3:23 PM EDT Jose Eduardo Singh jackson documented in this encounter Plan of Treatment Upcoming Encounters Date Type Department Care Team (Late st Contact Info) Description 07/23/2025 9:00 AM EDT Office Visit [facility] [address] [facility] [place] [address] 1 year follow up 07/30/2025 10:00 AM EST Visit (SP) Office Hematology/Oncology [address] [facility] [address] Arnol Martinez MD [address] [facility] [address] 1 year follow up documented as of this encounter Visit Diagnoses Not on filedocumented in this encounter Care Teams Cane Piler Relationship Specialty Start Date End Date Saul Turner [address] [place] [phone] PCP - General Family Medicine 07/15/13 12/14/20 Logan Naidu MD [address] [place] [address] PCP - General Family Medicine 12/15/20 documented as of this encounter
--- OUTSIDE RECORDS SUMMARY | 2025-03-06 09:10 | XMS_ITS | Encounter Summary ---
Author Organization [facility] Address [address] [place] [address] Care Team Providers Care State Assessed Properties Director Name Role Phone Logan Naidu MD Primary Care Provider [phone] Logan Naidu MD Unavailable Encounter Details Date Type Department Care Team (Late st Contact Info) Description 03/05/2025 Abstract [facility] [address] [place] [phone] Logan Naidu MD [address] [place] [id number] Social History Tobacco Use Types Packs/Day Years Used Date Smoking Tobacco: Never Smokeless Tobacco: Never Alcohol Use Standard Drinks/Week Comments Never 0 (1 standard drink = 0.6 oz pure alcohol) caffeine intake : 2-3 cups per day Social Connection and Isolat ion Panel [NHANES] Answer Date Recorded In a typical week, how many times do you talk on the phone with family, friends, or neighbors? More than three times a week 02/25/2024 How often do you get togethe r with friends or relatives? Twice a week 02/25/2024 How often do you attend chur ch or rastafarian services? More than 4 times per year 02/25/2024 Do you belong to any clubs o r organizations such as samaritan groups, unions, fraternal or athletic groups, or school groups? Yes 02/25/2024 How often do you attend meet ings of the clubs or organizations you belong to? More than 4 times per year 02/25/2024 Are you , , di vorced, , never , or living with a partner? 02/25/2024 AUDIT-C Answer Date Recorded Q1: How often do you have a drink containing alc ohol? Monthly or less 02/25/2024 Q2: How many drinks containi ng alcohol do you have on a typical day when you are drinking? 1 or 2 02/25/2024 Q3: How often do you have si x or more drinks on one occasion? Never 02/25/2024 Overall Financial Resource Strain (CARDIA) Answe r Date Recorded How hard is it for you to pa y for the very basics like food, housing, medical care, and heating? Not hard at all 02/25/2024 PHQ-2 Answer Date Recorded Patient Health Questionnaire-2 Score 0 07/15/2024 [facility] - Occupational Stress Questionnaire Answer Date Recorded Do you feel stress - tense, restless, nervous, or anxious, or unable to sleep at night because your mind is troubled all the time - these days? Only a little 02/25/2024 Exercise Vital Sign Answer Date Recorde d On average, how many days pe r week do you engage in moderate to strenuous exercise (like a brisk walk)? 4 days 02/25/2024 On average, how many minutes do you engage in exercise at this level? 20 min 02/25/2024 Hunger Vital Sign Answer Date Recorded Within the past 12 months, y ou worried that your food would run out before you got the money to buy more. Never true 02/25/20 24 Within the past 12 months, t he food you bought just didn't last and you didn't have money to get more. Never true 02/25/2024 PRAPARE - Transportation Answer Date Re corded In the past 12 months, has l ack of transportation kept you from medical appointments or from getting medications? No 11/2023 In the past 12 months, has l ack of transportation kept you from meetings, work, or from getting things needed for daily living? No 02/25/2024 Housing Stability Vital Sign Answer Taco e Recorded In the last 12 months, was t here a time when you were not able to pay the mortgage or rent on time? No 02/25/2024 In the last 12 months, how many places have you lived? 1 02/25/2024 In the last 12 months, was t here a time when you did not have a steady place to sleep or slept in a longterm (including now)? No 02/25/2024 Comments Unknown Sex and Gender Information Value Date Recorded Sex Assigned at Not on file Legal Sex Female 7:01 PM EDT Gender Identity Not on file Sexual Orientation Not on file documented as of this encounter Plan of Treatment Upcoming Encounters Date Type Department Care Team (Late st Contact Info) Description 07/21/2025 11:00 AM EDT Office Visit [facility] [address] [place] [address] Logan Naidu MD [address] [place] [phone] documented as of this encounter Visit Diagnoses Not on filedocumented in this encounter Care Teams State Assessed Properties Director Relationship Specialty Start Date End Date Logan Naidu MD [address] [place] [phone] PCP - General Family Medicine 02/26/24 Logan Naidu MD [address] [place] [phone] PCP - ACO Reach 10/31/24 documented as of this encounter
--- OUTSIDE RECORDS SUMMARY | 2025-03-06 09:10 | XMS_ITS | Encounter Summary ---
Author Organization [facility] Address [address] [place] [address] Care Team Providers Care Digital Account Supervisor Name Role Phone Saul Turner Primary Care Provider + [phone] Anamika Moore RN Unavailable [phone] Logan Naidu MD Primary Care Provider [phone] Source Comments In the event this information is protected by the Federal Confidentiality of Alcohol and Drug AbusePatient Records regulations: The Federal rules restrict any use of the information to criminally investigate or prosecute any alcohol or drug abuse patient.[facility] Encounter Details Date Type Department Care Team (Late st Contact Info) Description 01/06/2015 Patient Msg Medical Records [address] [place] [address] Provider, Cc RE: Patient Registration Completed Social [...] hearing? Answer Date of Assessment Author No 09/29/2014 3:11 PM EST Neal Jeffries * Are you blind or do you have serious difficulty seeing, even when wearing glasses? Answer Date of Assessment Author No 09/29/2014 3:11 PM EST Neal Jeffries * Do you have serious difficulty walking or climbing stairs? Answer Date of Assessment Author No 09/29/2014 3:11 PM EST Neal Jeffries * Do you have difficulty dressing or bathing? Answer Date of Assessment Author No 09/29/2014 3:11 PM EST Neal Jeffries * Because of a physical, mental, or emotional condition, do you have difficulty doing errands alone such as visiting a doctor's office or shopping? Answer Date of Assessment Author No 09/29/2014 3:11 PM EST Neal Jeffries documented as of this encounter Mental Status * Because of a physical, mental, or emotional condition, do you have serious difficulty concentrating, remembering, or making decisions? Answer Entry Date Author No 09/29/2014 3:11 PM Neal Krishnan documented in this encounter Plan of Treatment Upcoming Encounters Date Type Department Care Team (Late st Contact Info) Description 07/23/2025 9:00 AM EDT Office Visit [facility] [address] [facility] [place] [address] 1 year follow up 07/30/2025 10:00 AM EST Visit (SP) Office Hematology/Oncology [address] [facility] [place] [address] Anrol Martinez MD [address] [address] 1 year follow up documented as of this encounter Visit Diagnoses Not on filedocumented in this encounter Care Teams Digital Account Supervisor Relationship Specialty Start Date End Date Saul Turner [address] [place] [address] [place] [address] PCP - General Family Medicine 07/15/13 12/14/20 Logan Naidu MD [address] [place] [address] PCP - General Family Medicine 12/15/20 Anamika Moore, RN [address] [place] [address] Transitional Outside Sales Executive 03/02/15 03/09/15 documented as of this encounter
--- OUTSIDE RECORDS SUMMARY | 2025-03-06 09:10 | XMS_ITS | Encounter Summary ---
Author Organization [facility] Address [address] [place] [address] Care Team Providers Care Data Designer Name Role Phone Saul Turner Primary Care Provider [phone] Anamika Moore RN Unavailable [phone] Logan Naidu MD Primary Care Provider [phone] Source Comments In the event this information is protected by the Federal Confidentiality of Alcohol and Drug AbusePatient Records regulations: The Federal rules restrict any use of the information to criminally investigate or prosecute any alcohol or drug abuse patient.[facility] Encounter Details Date Type Department Care Team (Late st Contact Info) Description 07/06/2014 Patient Msg Medical Records [address] [place] [address] Provider, [facility] Procedure Social [...] hearing? Answer Date of Assessment Author No 06/23/2014 2:55 PM EDT Beverly Aguirre RN * Are you blind or do you have serious difficulty seeing, even when wearing glasses? Answer Date of Assessment Author No 06/23/2014 2:55 PM EDT Beverly Aguirre RN * Do you have serious difficulty walking or climbing stairs? Answer Date of Assessment Author No 06/23/2014 2:55 PM EDT Beverly Aguirre RN * Do you have difficulty dressing or bathing? Answer Date of Assessment Author No 06/23/2014 2:55 PM EDT Beverly Aguirre RN * Because of a physical, mental, or emotional condition, do you have difficulty doing errands alone such as visiting a doctor's office or shopping? Answer Date of Assessment Author No 06/23/2014 2:55 PM EDT Beverly Aguirre RN documented as of this encounter Mental Status * Because of a physical, mental, or emotional condition, do you have serious difficulty concentrating, remembering, or making decisions? Answer Entry Date Author No 06/23/2014 2:55 PM EDT Beverly Aguirre RN documented in this encounter Plan of Treatment Upcoming Encounters Date Type Department Care Team (Late st Contact Info) Description 07/23/2025 9:00 AM EDT Office Visit [facility] [address] [place] [address] 1 year follow up 07/30/2025 10:00 AM EST Visit (SP) Office Hematology/Oncology [address] [place] [address] Arnol Martinez MD [address] [place] [address] 1 year follow up documented as of this encounter Visit Diagnoses Not on filedocumented in this encounter Care Teams Data Designer Relationship Specialty Start Date End Date Saul Turner [address] [place] [phone] PCP - General Family Medicine 07/15/13 12/14/20 Logan Naidu MD [address] [place] [address] PCP - General Family Medicine 12/15/20 Anamika Moore, RN [address] [place] [address] Transitional Community Sports Coordinator 03/02/15 03/09/15 documented as of this encounter
--- OUTSIDE RECORDS SUMMARY | 2025-03-06 09:10 | XMS_ITS | Encounter Summary ---
Author Organization [facility] Address [address] [place] [address] Care Team Providers Care Space Operations Name Role Phone Logan Naidu MD Primary Care Provider [phone] Source Comments In the event this information is protected by the Federal Confidentiality of Alcohol and Drug AbusePatient Records regulations: The Federal rules restrict any use of the information to criminally investigate or prosecute any alcohol or drug abuse patient.[facility] Encounter Details Date Type Department Care Team (Late st Contact Info) Description 04/16/2024 Patient [facility] [place], [place] [id number] Provider, [facility] Outcomes and Quality of Life Database Social History Tobacco Use Types Packs/Day Years [...] is lower risk 6 01/25/2023 Data from: https://www.neighborhoodatlas.[facility]/. Last address used for calculation Juve VAZQUEZ 01/25/2023 Comments No Sex and Gender [...] 3:23 PM EDT Singh Whitt isnora * Because of a physical, mental, or [...] Description 07/23/2025 9:00 AM EDT Office Visit [facility] [address] [facility] [place] [address] 1 year follow up 07/30/2025 10:00 AM EST Visit (SP) Office Hematology/Oncology [address] [facility] [place] [address] Arnol Martinez MD [address] [place] [address] 1 year follow up documented as of this encounter Visit Diagnoses Not on filedocumented in this encounter Care Teams Space Operations Relationship Specialty Start Date End Date Logan Naidu MD [address] [place] [address] PCP - General Family Medicine 12/15/20 documented as of this encounter
--- OUTSIDE RECORDS SUMMARY | 2025-03-06 09:10 | XMS_ITS | Encounter Summary ---
Author Organization [facility] Address [address] [place] [address] Care Team Providers Care Coagulating Bath Operator Name Role Phone Saul Turner Primary Care Provider + [phone] Anamika Moore RN Unavailable [phone] Logan Naidu MD Primary Care Provider [phone] Source Comments In the event this information is protected by the Federal Confidentiality of Alcohol and Drug AbusePatient Records regulations: The Federal rules restrict any use of the information to criminally investigate or prosecute any alcohol or drug abuse patient.[facility] Encounter Details Date Type Department Care Team (Late st Contact Info) Description 05/05/2014 Patient Msg Medical Records [address] [place] [address] Provider, [facility] Procedure Social [...] hearing? Answer Date of Assessment Author No 05/05/2014 3:12 PM EDT Fior Holt RN * Are you blind or do you have serious difficulty seeing, even when wearing glasses? Answer Date of Assessment Author No 05/05/2014 3:12 PM EDT Fior Holt RN * Do you have serious difficulty walking or climbing stairs? Answer Date of Assessment Author No 05/05/2014 3:12 PM EDT Fior Holt RN * Do you have difficulty dressing or bathing? Answer Date of Assessment Author No 05/05/2014 3:12 PM EDT Fior Holt RN * Because of a physical, mental, or emotional condition, do you have difficulty doing errands alone such as visiting a doctor's office or shopping? Answer Date of Assessment Author No 05/05/2014 3:12 PM EDT Fior Holt RN documented as of this encounter Mental Status * Because of a physical, mental, or emotional condition, do you have serious difficulty concentrating, remembering, or making decisions? Answer Entry Date Author No 05/05/2014 3:12 PM EDT Fior Holt RN documented in this encounter Plan of Treatment Upcoming Encounters Date Type Department Care Team (Late st Contact Info) Description 07/23/2025 9:00 AM EDT Office Visit [facility] [address] [place] [address] 1 year follow up 07/30/2025 10:00 AM EST Visit (SP) Office Hematology/Oncology [address] [place] [address] Arnol Martinez MD [address] [place] [address] 1 year follow up documented as of this encounter Visit Diagnoses Not on filedocumented in this encounter Care Teams Coagulating Bath Operator Relationship Specialty Start Date End Date Saul Turnere [address] [place] [phone] PCP - General Family Medicine 07/15/13 12/14/20 Logan Naidu MD [address] [place] [address] PCP - General Family Medicine 12/15/20 Anamika Moore, RN [address] [place] [address] Transitional Reconnaissance Crewmember 03/02/15 03/09/15 documented as of this encounter
--- OUTSIDE RECORDS SUMMARY | 2025-03-06 09:10 | XMS_ITS | Encounter Summary ---
Author Organization [facility] Address [address] [place] [address] Care Team Providers Care Grinding Wheel Operator Name Role Phone Saul Turner Primary Care Provider + [phone] Anamika Moore RN Unavailable [phone] Logan Naidu MD Primary Care Provider [phone] Source Comments In the event this information is protected by the Federal Confidentiality of Alcohol and Drug AbusePatient Records regulations: The Federal rules restrict any use of the information to criminally investigate or prosecute any alcohol or drug abuse patient.[facility] Encounter Details Date Type Department Care Team (Late st Contact Info) Description 12/29/2014 Patient Msg Medical Records [address] [place] [address] Provider, [facility] Procedure Social [...] Office Visit [facility] [address] [place] [place] [address] 1 year follow up 07/30/2025 10:00 AM EST Visit (SP) Office Hematology/Oncology [address] [place] [address] Arnol Martinez MD [address] [place] [address] 1 year follow up documented as of this encounter Visit Diagnoses Not on filedocumented in this encounter Care Teams Grinding Wheel Operator Relationship Specialty Start Date End Date Saul Turner [address] [place] [address] [place] [address] PCP - General Family Medicine 07/15/13 12/14/20 Logan Naidu MD [address] [place] [address] PCP - General Family Medicine 12/15/20 Anamika Moore, RN [address] [place] [address] Transitional Log Stacker Operator 03/02/15 03/09/15 documented as of this encounter
--- OUTSIDE RECORDS SUMMARY | 2025-03-06 09:10 | XMS_ITS | Clinical Summary ---
Author Organization [id number] [address] [place] [address] Care Team Providers Care Hspt Tutor Name Role Phone Logan Naidu MD Primary Care Provider [phone] Allergies Active Allergy Reactions Criticality Noted Date Comments Penicillins Other (See Comments) 02/21/2017 Pneumococcal Vaccine 03/11/2019 Maria Alejandra Camarillo Medications lisinopril (PRINIVIL,ZESTRI L) 10 mg tablet Take 10 mg by mouth daily. Active aspirin 81 mg Take 81 mg by mouth daily. Active loperamide (IMODIUM) 1 mg/5 mL solution Take by mouth as needed. Active amLODIPine (NORVASC) 5 mg tablet Take 5 mg by mouth daily. 09/20/2017 Active Active Problems Problem Noted Date Diagnosed Date Small bowel obstruction 03/11/2019 Family History Medical History Relation Name Comments Heart disease Father Heart disease Mother Breast cancer Neg Hx Relation Name Status Comments Father Mother Social History Tobacco Use Types Packs/Day Years Used Date Smoking Tobacco: Never Smokeless Tobacco: Never Alcohol Use Standard Drinks/Week Comments No 0 (1 standard drink = 0.6 oz pur e alcohol) Childcare Answer Date Recorded Childcare Unknown 03/05/2019 Employment Answer Date Recorded Employment Unknown 03/05/2019 Purpose - Life Answer Date Recorded Purpose and direction in life Unknown Comments No Sex and Gender Information Value Date Recorded Sex Assigned at Not on file Legal Sex Female 11:30 AM EDT Gender Identity Not on file Sexual Orientation Not on file Last Filed Vital Signs Vital Sign Reading Time Taken Comments Blood Pressure 133/52 03/13/2019 1:54 PM EDT Pulse 84 03/13/2019 1:54 PM EDT Temperature 36.7 C (98 F) 03/13/2019 1:54 PM EDT Respiratory Rate 20 03/13/2019 1:54 PM EDT Oxygen Saturation 95% 03/13/2019 1:54 PM EDT Inhaled Oxygen Concentration - - Weight 77.1 kg (170 lb) 01/08/2023 8:39 AM EDT Height 154.9 cm (5' 1 ) 01/08/2023 8:39 AM EDT Body Mass Index 32.12 01/08/2023 8:39 AM EDT Plan of Treatment Health Maintenance Due Date Last Done Comments Depression Screening 1957 Tobacco Screening 1957 DTaP,Tdap and Td Vaccines (1 - Tdap) 01/20/1963 Fall Risk Screening 01/20/2009 Zoster (Shingles) Vaccine (2 of 3) 11/25/2010 09/30/2010 COVID-19 Vaccine (5 - 2023-2 5 season) 2024 09/28/2022, 08/02/2021, 12/07/2020, Additional history exists Influenza Vaccine 05/25/2025 Medical Devices Not on file Insurance MEDICARE AET Advance Directives Documents on File Type Date Recorded Patient Waste Specialist Expl anation Living Will 04/03/2019 11:02 AM * Full Code (Latest Code Status on File) Date Activated Date Inactivated Comments 03/12/2019 7:40 AM 03/13/2019 5:40 PM Care Teams Hspt Tutor Relationship Specialty Start Date End Date Logan Naidu MD PCP - General Family Medicine 01/05/21
--- OUTSIDE RECORDS SUMMARY | 2025-03-06 09:10 | XMS_ITS | Encounter Summary ---
Author Organization [facility] Address [facility] [place] [address] Care Team Providers Care Glass Grinder Name Role Phone Saul Turner Primary Care Provider [phone] Anamika Moore RN Unavailable [phone] Logan Naidu MD Primary Care Provider [phone] Source Comments In the event this information is protected by the Federal Confidentiality of Alcohol and Drug AbusePatient Records regulations: The Federal rules restrict any use of the information to criminally investigate or prosecute any alcohol or drug abuse patient.[facility] Encounter Details Date Type Department Care Team (Late st Contact Info) Description 09/25/2013 Letters (in) Colorectal Surgery [address] [address] Shine Patel MD [address] [place] [address] Social History Tobacco Use Types Packs/Day Years [...] PM EDT documented as of this encounter Miscellaneous Notes * Letter - Shine Patel - 09/25/2013 12:00 AM EST September 25, 2013 Sincere [place] [address] RE: Lisa Barger Dear Dr. Ellison: I am writing to you with regard to Gisselle Barger who you referred to me for evaluation of an obstructing mass of the rectum. She had been evaluated initially on July 30, 2013. At that time, we noted her imaging which included the presence of a mass causing a stricture in the transverse colon. Her rectal mass was not negotiable by the flexible sigmoidoscope. Her evaluation did not indicate any clear evidence of distal metastatic disease. She underwent a Gastrografin enema on August 14, 2013which confirmed the annular stricturing mass in the rectum as well as the regular stricturing of the transverse colon and we assumed that that was a synchronous cancer. After evaluation with the MRI of the pelvis which had been obtained on August 14, 2013 and discussion of the case at our multidisciplinary tumor board meeting, we decided to proceed with surgery first without neoadjuvant treatments. She underwent bilateral ureteral stents placement followed by laparotomy. At the time of the operation, we immobilized both flexures and decided that in her particular case, it would be most suitable to perform a subtotal colectomy and proctosigmoidectomy in continuity using the ascending colonto perform a colorectal anastomosis. We had to modify the anatomy to achieve a tension-free colorectal anastomosis which was rendered more difficult by her BMI approaching 34. However, we were happy b ecause of the ascending to rectal anastomosis which we achieved through a counter clockwise rotation of the proximal bowel. We added a diverting loop ileostomy. She developed a postoperative ileus which resolved with nonoperative management and required a temporary placement of nasogastric tube. Atthe time of her discharge, she could tolerate a gastrointestinal soft diet and had a good function from her stoma. Her pain was well controlled with oral narcotics combined with Neurontin and Nucynta. Her pathology report indicated 2 of 15 transverse colon regional lymph nodes involved with metastatic adenocarcinoma and 2 of 18 rectosigmoid regional lymph nodes also with metastatic adenocarcinoma. All the resection margins were negative and we performed a partial mesorectal excision. The primary rectal cancer was described at pT4a whereas the primary colon cancer was described as pT3. I told the patient that she would need postoperative chemotherapy. I plan to see her back on October 28, 2013. It has been a pleasure taking care of Mrs. Barger. She will need a followup endoscopy which probably can be done with a flexible sigmoidoscopy instrument within 3 months after the completion of her operation and I will be available to perform that in the office. Should any problems or concerns arise, please do not hesitate to contact me. Sincerely, Shine Patel M.D. ELSA/maria g Fong documented in this encounter Plan of Treatment Upcoming Encounters Date Type Department Care Team (Late st Contact Info) Description 07/23/2025 9:00 AM EDT Office Visit [facility] [address] [place] [address] [place] [address] 1 year follow up 07/30/2025 10:00 AM EST Visit (SP) Office Hematology/Oncology [address] [facility] [place] [address] Arnol Martinez MD [address] [facility] [place] [address] 1 year follow up documented as of this encounter Visit Diagnoses Not on filedocumented in this encounter Care Teams Glass Grinder Relationship Specialty Start Date End Date Saul Turner [address] [place] [address] [place] [address] PCP - General Family Medicine 07/15/13 12/14/20 Logan Naidu MD [address] [place] [address] PCP - General Family Medicine 12/15/20 Anamika Moore, RN [address] [place] [id number] Transitional Insurance Risk Manager 03/02/15 03/09/15 documented as of this encounter
--- OUTSIDE RECORDS SUMMARY | 2025-03-06 09:10 | XMS_ITS ---
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 start iron replacements. not tachycardic. BP stable recheck labs on day of appointment Hydronephrosis of left kidney 07/20/2014 Overview (07/22/2014): pt previously with bilateral ureter stents and removed. now complains with left flank pain. urology following. CT shows increased left hydronephrosis. 07/20 urology placed stent in left kidney. creatinine improving 07/22 creatinine normal. f/u with urology as an outpatient. left flank pain greatly improved Hypotension 07/16/2014 Overview (07/22/2014): likely from epidural catheter. will give fluid bolus and monitor... resolved Post-op pain 07/16/2014 Overview (07/22/2014): epidural LAB DIRECTOR. acute pain following. will start oral pain meds once diet allows. maintain epidural today for planned OR 07/21 -- epidural DC'd. less surgical pain than neck pain. added muscle relaxant DVT prophylaxis 07/16/2014 Overview (07/16/2014): heparin SQ / SCD's / ambulate Colon cancer 10/28/2013 Overview (07/16/2014): 09/05/13: Laparotomy, following bilateral ureteral stent placement by Urology, mobilization of splenic flexure, mobilization of hepatic flexure, subtotal colectomy and proctosigmoidectomy in continuity, colorectal anastomosis (end-to-end CDH 29), flexible sigmoidoscopy, diverting loop ileostomy, and partial omentectomy 07/15/14 s/p: Colon stricture 08/26/2013 Malignant neoplasm of rectum Current Treatment and Therapy Plans No current plan information found. Past Treatment and Therapy Plans NON-CHEMO 1 Plan Name Start Date Discontinue Date Treatment Medications Discontinue Reason Plan Provider Cycles CYANOCOBALAMIN 1000 D1,29,57 - Q84D 08/05/20 24 01/01/2025 No medications scheduled. Other Arnol Martinez MD 1 of 4 cycles started AMB HYDRATION - NS 1000ML IV - ONCE 2 04/27/2023 No medications scheduled. Other Arnol Martinez MD 2 of 3 cycles started HYDRATION - ONCE 0 08/03/2021 No medications scheduled. Other Jessika Desouza APRN.MATH AND SCIENCES DEPARTMENT CHAIR 1 of 1 cycle started CYANOCOBALAMIN 1000 D1,29,57 - Q84D 7 04/15/2019 No medications scheduled. Other Ellison Sincere P 7 of 7 cycles started CYANOCOBALAMIN 1000 D1,8,15,22 THEN D1 - Q28D 5 11/01/2016 No medications scheduled. Other Ellison Sincere P 7 of 8 cycles started NS 1000ML IV DURING VISIT 4 05/10/2015 No medications scheduled. Other Sincere Ellison P 3 of 3 cycles started NON-CHEMO 2 Plan Name Start Date Discontinue Date Treatment Medications Discontinue Reason Plan Provider Cycles AMB ZOLEDRONIC ACID FOR HYPERCALCEMIA 3 08/28/2023 zoledronic acid (ZOMETA) Arnol Calvert MD Treatment not started AMB BONE MODIFYING AGENT: $$$$ - Q180D IF CrCl IS LESS THAN 30 ML/MIN 03/24/2022 08/28/2023 denosumab (PROLIA) Arnol Calvert MD 1 of 1 cycle started HYDRATION WITH PARAMETERS - ONCE 7 11/25/2018 No medications scheduled. Other Sincere Ellison P 2 of 2 cycles started NS 1000ML IV DURING VISIT 5 11/01/2016 No medications scheduled. Other Sincere Ellison P 3 of 3 cycles started CENTRAL LINE FLUSH - Weekly x 24 weeks 03/24/2014 11/01/2016 No medications scheduled. 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
--- OUTSIDE RECORDS SUMMARY | 2025-03-06 09:10 | XMS_ITS | Encounter Summary ---
Author Organization [facility] Address [address] [place] [address] Care Team Providers Care Road Repairer Name Role Phone Logan Naidu MD Primary Care Provider [phone] Logan Naidu MD Primary Care Provider [phone] Logan Naidu MD Unavailable Encounter Details Date Type Department Care Team (Late Contact Info) Description 07/31/2023 External Result Encounter [facility] External Department Unsolicited Alan Adams W, DO [address] [place] [address] Social History Tobacco Use Types Packs/Day Years Used Date Smoking Tobacco: Never Smokeless Tobacco: Never Alcohol Use Standard Drinks/Week Comments Never 0 (1 standard drink = 0.6 oz pure alcohol) caffeine intake : 2-3 cups per day Comments Unknown Sex and Gender Information Value Date Recorded Sex Assigned at Not on file Legal Sex Female 7:01 PM EDT Gender Identity Not on file Sexual Orientation Not on file COVID-19 Exposure Response Date Recorded In the last 10 days, have yo u been in contact with someone who was confirmed or suspected to have Coronavirus/COVID-19? No / Unsure 07/16/2023 5:26 PM EDT documented as of this encounter Plan of Treatment Upcoming Encounters Date Type Department Care Team (Late Contact Info) Description 07/21/2025 11:00 AM EDT Office Visit [facility] [address] [place] [id number] Logan Naidu MD [address] [place] [address] documented as of this encounter Procedures Procedure Name Priority Date/Time Associated Diagnosis Comments NM PARATHYROID SPECT 07/31/2023 2:38 PM EST documented in this encounter Results * NM parathyroid spect (07/31/2023 2:38 PM EST) Anatomical Region Laterality Modality Nuclear Medicine 07/31/2023 2:38 PM EST Impressions 08/13/2023 9:12 AM EST NO DEFINITE PARATHYROID ADENOMA. ASYMMETRICAL UPTAKE ON THE RIGHT WHERE PATIENT HAS A KNOWN LARGE COMPLEX CYSTIC AND SOLID NODULE. Impression dictated by: Sharda Salmeron M.D.08/01/2023 8:46 AM Dictation Location: [place] [address] Transcribed By: [facility] 08/01/23 0846 Dictated By: Sharda Salmeron MD 07/31/23 1438 Signed By: <Electronically signed by MD Sharda Salmeron in OV> 08/01/23 0846 Narrative 08/13/2023 9:12 AM EST [facility] [place] [address] Nuclear Medicine Report Signed Patient: Lisa Barger MR#: [id number] : 1945 Acct:[id number] Age/Sex: 78 / F ADM Date: 07/31/23 Loc: [place] Room: Type: [facility] Attending Dr: Alan Adams DO Copies to: DO Sharda Brizuela MD Ordering Provider: Alan Adams DO Date of Service: 07/31/23 NM/NM*parathyroid SPECT*: E21.0 PARATHYROID SCAN WITH SPECT IMAGING CLINICAL DATA: Hyperparathyroidism. COMPARISON: Thyroid ultrasound 12/11/[address] 07/31/2023 Following the intravenous administration of 24.2 mCi of technetium 99m labeled sestamibi, anterior imaging of the neck and chest was performed at 15 minutes and 2 hours. SPECT imaging in 3 planes was also performed. The right thyroid lobe is larger than left. This was also demonstrated on the ultrasound study. On the delayed imaging, there is some washout from the thyroid lobes though there is still asymmetric uptake on the right. This site appears to correlate with a large complex cystic and solid right thyroid nodule seen on the other imaging. There is no convincing parathyroid adenoma. NM/NM*parathyroid SPECT* Procedure Note Radiology, Radiologist, MD - 08/13/2023 [facility] [place] [address] [place] [address] Nuclear Medicine Report Signed Patient: Lisa Barger RMR#: [id number] : 4Acct:[id number] Age/Sex: 78 / FADM Date: 07/31/23 Loc: [place] Room:Type: [facility] Attending Dr: Alan Adams DO Copies to: DO Sharda Brizuela MD Ordering Provider: Alan Adams DO Date of Service: 07/31/23 NM/NM*parathyroid SPECT*: E21.0 PARATHYROID SCAN WITH SPECT IMAGING CLINICAL DATA: Hyperparathyroidism. COMPARISON: Thyroid ultrasound 12/11/[address] 07/31/2023 Following the intravenous administration of 24.2 mCi of technetium 99mlabeled sestamibi, anterior imaging of the neck and chest was performed at 15 minutes and 2 hours.SPECT imaging in 3 planes was also performed. The right thyroid lobe is larger than left. This wasalso demonstrated on the ultrasound study. On the delayed imaging, there is some washout from thethyroid lobes though there is still asymmetric uptake on the right. This site appears to correlatewith a large complex cystic and solid right thyroid nodule seen on the other imaging. There is noconvincing parathyroid adenoma. NM/NM*parathyroid SPECT* IMPRESSION: NO DEFINITE PARATHYROID ADENOMA. ASYMMETRICAL UPTAKE ON THE RIGHT WHERE PATIENT HAS A KNOWN LARGE COMPLEXCYSTIC AND SOLID NODULE. Impression dictated by: Sharda Salmeron M.D.08/01/2023 8:46 AM Dictation Location: [place] [address] Transcribed By: [facility] 08/01/23 0846 Dictated By: Sharda Salmeron MD 07/31/23 1438 Signed By: <Electronically signed by MD Sharda Salmeron in OV> 08/01/23 0846 us Alan Adams DO IMG NM PROCEDURES Final Res ult documented in this encounter Visit Diagnoses Not on filedocumented in this encounter Care Teams Road Repairer Relationship Specialty Start Date End Date Logan Naidu MD PCP - General Family Medicine 05/30/23 02/25/24 Logan Naidu MD [address] [place] [address] PCP - General Family Medicine 02/26/24 Logan Naidu MD [address] [place] [address] PCP - ACO Reach 10/31/24 documented as of this encounter
--- OUTSIDE RECORDS SUMMARY | 2025-03-06 09:10 | XMS_ITS | Clinical Summary ---
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 Active Multivitamin capsule Take 1 capsule by mouth once daily. Active Cholecalciferol , Vitamin D3, 50 mcg (2,000 unit) cap Active Magnesium 250 mg tab Active zinc sulfate (ZINC-15 ORAL) Activ e MEDICATION, NON-DATABASE Take 1 capsule by mouth once daily. RESTORE (EYE PROMISE) Active amLODIPine (NORVASC) 5 mg tablet Take 1 tablet by mouth twice daily. 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 02/23/2022 07/04/2022 Encounters Date Type Department Care Team Description 01/01/2025 Orders Only [id number] [place] [address] Marylou Vu RPh from Last 3 Months Immunizations Immunization Administration Dates Next Due COVID-19 original vaccine, f ull dose, monovalent (MODERNA) 08/02/2021,12/07/2020,11/11/2020 COVID-19 vaccine, age 12+ yr (MODERNA) COVID-19 vaccine, age 12+ yr , bivalent (MODERNA) 09/28/2022 zoster (ZVL) vaccine, live (ZOSTAVAX) 09/30/2010 Family History Medical History Relation Comments Ischemic Heart Disease Father of m assive [place] at 67 htn [Other] Father Relation Status Comments Father (Age 70) Mother (Age 89) Social History Tobacco Use Types Packs/Day Years Used Date Smoking Tobacco: Never Smokeless Tobacco: Never Tobacco Cessation:Counseling Given: Not Answered Alcohol Use Standard Drinks/Week Comments No 0 (1 standard drink = 0.6 oz pur e alcohol) PHQ-2 Answer Date Recorded PHQ-2 score 0 07/29/2024 Area Deprivation Index Answer Date Michael rded National Score (1-100), lower number is lower ri sk 76 01/25/2023 State Score (1-10), lower number is lower risk 6 01/25/2023 Data from: https://www.neighborhoodatlas.medicine.[facility].edu/. Last address used for calculation [address] [place] [address] AV 01/25/2023 Comments No Sex and Gender Information Value Date Recorded Sex Assigned at Female 05/01/2019 10:09 PM EDT Legal Sex Female 1:57 PM EDT Gender Identity Female 05/01/2019 10:09 PM EDT Sexual Orientation Straight 05/01/2019 10 :09 PM EDT Last Filed Vital Signs Vital Sign Reading Time Taken Comments Blood Pressure 168/74 09/01/2024 12:21 PM EST Pulse 75 09/01/2024 12:21 PM EST Temperature 36.4 C (97.6 F) 09/01/2024 12:21 PM EST Respiratory Rate 18 09/01/2024 12:2 1 PM EST Oxygen Saturation 99% 09/01/2024 12: 21 PM EST Inhaled Oxygen Concentration - - Weight 75.6 kg (166 lb 10.7 oz) 07/31/2024 9:36 AM EST Height 156.2 cm (5' 1.5 ) 07/31/2024 9:36 AM EST Body Mass Index 30.99 07/31/2024 9:36 AM EST Plan of Treatment Upcoming Encounters Date Type Department Care Team (Late st Contact Info) Description 07/23/2025 9:00 AM EDT Office Visit [facility] [address] [place] [address] [place] [address] 1 year follow up 07/30/2025 10:00 AM EST Visit (SP) Office Hematology/Oncology [address] [place] [address] [place] [address] Arnol Martinez MD [address] [address] 1 year follow up Health Maintenance Due Date Last Done Comments Anxiety Screening 01/20/1962 Depression Screening 01/20/1962 DTaP,Tdap,Td Vaccine (1 - Tdap) 01/20/1963 Pneumococcal Vaccine: 50+ (1 of 1 - PCV) 01/20/1994 Medicare Annual Wellness Visit 10/25/2010 Shingrix Vaccine (2 of 3) 11/25/2010 09/30/2010 RSV Vaccine (1 - 1-dose 75+ series) 01/20/2019 Advance Directive Discussion 09/24/2024 Covid-19 Vaccine (2023-2 5 season) 2025 08/13/2024, 09/27/2023, 09/28/2022, Additional history exists Influenza Vaccine (Season Ended) 2025 Diabetes Screening 07/31/2027 07/31/2024, 0 03/10/2024, 07/26/2023, Additional history exists Colonoscopy Discontinued 05/26/2014 Colorectal Cancer Screening Discontinued Bone Density Screening Completed 05/24/2022 CT Colonography Discontinued Cologuard (FIT-DNA) Discontinued Fecal Occult Blood Discontinued Sigmoidoscopy Discontinued Medical Devices Implanted Type Area Hcc Coders Device Identifier Shelf Expiration Date Model / Serial / Lot Stent Uret 7fr 26cm W/O Gw Inl - [id number] Implanted:Qty : 1 on 07/20/2014 at [facility] Urologic Stents Left: Ureter [employer] 12/18/2018 [id number] / / [id number] Procedures Procedure Name Priority Date/Time Associated Diagnosis Comments COMPREHENSIVE METABOLIC PANEL Routine 07/31/2024 9:22 AM EST 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cer Anemia, unspecified type DXA-AXIAL SKELETON Routine 05/24/2022 2: 10 PM EDT Hypercalcemia Hyperparathyroidism (HCC) COLONOSCOPY - DIAGNOSTIC Routine 05/26/2014 10:47 AM EDT Personal history of malignant neoplasm of gastrointestinal tract from Last 3 Months or Most Recently Relevant to Health Maintenance Results * (ABNORMAL) COMP METABOLIC PANEL (07/31/2024 9:22 AM EST) Protein, Total 7.3 6.3 - 8.0 g/dL 07/31/2024 9:58 AM EST [facility] Albumin 4.4 3.9 - 4.9 g/dL 07/31/2024 9:58 AM EST [facility] Calcium, Total 10.9(H) 8.5 - 10.2 mg/dL 07/31/2024 9:58 AM EST [facility] Bilirubin, Total 0.5 0.2 - 1.3 mg/dL 07/31/2024 9:58 AM EST [facility] Alkaline Phosphatase 88 34 - 123 U/L 07/31/2024 9:58 AM EST [facility] AST 22 13 - 35 U/L 07/31/2024 9:58 AM EST [facility] ALT 15 7 - 38 U/L 07/31/2024 9:58 AM EST [facility] Glucose 102(H) 74 - 99 mg/dL 07/31/2024 9:58 AM EST [facility] Comment: The [place] Diabetes Association (ADA) provides guidance for cutoff values for fasting glucose and random glucose. The ADA defines fasting as no caloric intake for at least 8 hours. Fasting plasma glucose results between 100 to 125 mg/dL indicate increased risk for diabetes (prediabetes). Fasting plasma glucose results greater than or equal to 126 mg/dL meet the criteria for diagnosis of diabetes. In the absence of unequivocal hyperglycemia, results should be confirmed by repeat testing. In a patient with classic symptoms of hyperglycemia or hyperglycemic crisis, random plasma glucose results greater than or equal to 200 mg/dL meet the criteria for diagnosis of diabetes. Reference: Standards of Medical Care in Diabetes 2016, [place] Diabetes Association. Diabetes Care. 2016.39(Suppl 1). BUN 23(H) 7 - 21 mg/dL 07/31/2024 9:58 AM [facility] Creatinine 1.39(H) 0.58 - 0.96 mg/dL 07/31/2024 9:58 AM [facility] Sodium 136 136 - 144 mmol/L 07/31/2024 9:58 AM [facility] Potassium 4.0 3.7 - 5.1 mmol/L 07/31/2024 9:58 AM [facility] Chloride 99 98 - 107 mmol/L 07/31/2024 9:58 AM [facility] CO2 25 22 - 30 mmol/L 07/31/2024 9:58 AM [facility] Anion Gap 12 8 - 15 mmol/L 07/31/2024 9:58 AM [facility] Estimated Glomerular Filtration Rate 38(L) >=60 mL/min/1. 73m 07/31/2024 9:58 AM [facility] Comment:Estimated Glomerular Filtration Rate (eGFR) is calculated using the 2020 CKD-EPI creatinine equation. This equation utilizes serum creatinine, sex, and age as parameters. The creatinine assay has traceable calibration to isotope dilution- mass spectrometry. Refer to KDIGO guidelines for clinical interpretation. In patients with unstable renal function, e.g. those with acute kidney injury, the eGFR may not accurately reflect actual GFR. Blood BLOOD SPECIMEN / Unknown Venipuncture / Unknown 07/31/2024 9:22 AM EST 07/31/2024 9:22 AM EST us Arnol Martinez MD LABORATORY Final Result [facility] [address] [place] [address] * DXA-AXIAL SKELETON (05/24/2022 2:10 PM EDT) LOWEST T-SCORE -1.4 DIVIS ION OF RADIOLOGY Anatomical Region Laterality Modality Other 05/24/2022 2:10 PM EDT Impressions 05/28/2022 9:59 PM EDT IMPRESSION: THE LOWEST T-SCORE IS -1.4 IN THE RIGHT FOREARM AND RIGHT HIP 1) DIAGNOSIS (based on BMD alone): OSTEOPENIA The lowest T-score is used for diagnosis/impression Z-scores will be reported if <-1.0 or if > or = to+3.0 Note that if the patient's prior bone density test was consistent with osteoporosis, the clinical diagnosis remains Osteoporosis. Note that regardless of bone mineral density measurement, a patient may be clinically diagnosed with osteoporosis if they have had a prior fragility fracture. Caution: Medical conditions other than osteoporosis may cause low bone density, such as osteomalacia or renal osteodystrophy. Clinical correlation is necessary. 2) FRACTURE RISK (based on FRAX): 10-year absolute fracture risk: - major osteoporotic fracture = 14.0 % - hip fracture = 2.9 % - A 10 year probability of hip fracture greater than or equal to 3% or a 10 year probability of any major osteoporosis-related fracture greater than or equal to 20% should be considered for treatment. - All recommendations and calculations are to be considered as guidelines and should not replace sound clinical judgement - Caution: Fracture risk may be increased independent of BMD in patients with corticosteroid use, age greater than 65 years, or a history of prior fragility fracture. RECOMMENDATIONS: Consider x-ray of the thoracic(with swimmers views) and lumbar spine to further evaluate for vertebral compression fractures, given patient's reported height loss. Note that some medical conditions may cause low bone density, such as osteomalacia, vitamin D deficiency, multiple myeloma, renal osteodystrophy, hyperparathyroidism, hypogonadism, certain endocrinologic conditions, inflammatory arthropathies, gastrointestinal diseases and malabsorption, and certain medications such as, but not limited to, systemic steroids, anticonvulsants, clinical correlation is necessary. Evaluation of vitamin D status is recommended All patients should receive the recommended daily allowance of calcium and vitamin D, as recommended by the NOF and clinically indicated. Weight bearing exercises and strength training should be considered. Cessation of smoking and moderation of intake of alcohol, caffeine and carbonated beverages are recommended (for additional information please refer to NOF website at www.nof.org). Evaluation for secondary causes of bone loss is recommended in patients with a Z-score of less than -1.5 (see web-site for more details). Patients who have had a height loss of 1.5 inches or more since their peak height (tallest height), should be considered for evaluation of vertebral compression fractures by x-ray of the thoracic(with swimmers views) and lumbar spine. RECOMMENDATIONS FOR PHARMACOLOGIC THERAPY: National Osteoporosis Foundation (NOF) treatment recommendations (2008) Postmenopausal women and men age 50 and older presenting with the following should be treated: A hip or vertebral (clinical or morphometric) fracture T-score less than or equal to -2.5 at the femoral neck, total hip or spine after appropriate evaluation to exclude secondary causes Low bone mass (T-score between -1.0 and -2.5 at the femoral neck, total hip or spine) and 10 year probability of hip fracture greater than or equal to 3% or a 10 year probability of any major osteoporosis-related fracture greater than or equal to 20% based on the [place].- adapted WHO algorithm for FRAX(TM): www.anthony.ac.uk/FRAX/tool.jsp or The WHO Fracture Risk Assessment Tool at www.NOF.org PLEASE NOTE: THE DXA SCANNER USED FOR THIS PATIENT IS LISTED IN THE ABOVE DEMOGRAPHICS. THE TYPE OF SCANNER MUST BE ENTERED IN THE FRAX(TM) CALCULATOR TO CORRECT FOR DXA SCANNER VARIABILITY. PLEASE NOTE FRAX(TM) + Does not apply to premenopausal patients + DOES NOT APPLY TO TREATED OR PREVIOUSLY TREATED PATIENTS within past 2 years, please review updates from website listed above. ALL RECOMMENDATIONS AND CALCULATIONS ARE TO BE CONSIDERED GUIDELINES AND SHOULD NOT REPLACE SOUND CLINICAL JUDGMENT Follow-up in 2 years or as clinically indicated. Patients that are taking corticosteroids, are transplant recipients or have hyperparathyroidism should have annual follow-up. Follow-up scans should always be done on the same machine for accurate comparison. FOR MORE INFORMATION: [facility] for Osteoporosis and Metabolic Bone Disease: www.ccf.org/arthritis/osteo National Osteoporosis Foundation: www.nof.org International Society of Clinical Densitometry www.iscd.org Cash On Delivery Clerk: [id number] Transcribe Date/Time: May 24 2022 2:42P Dictated by : ELISA TANG MD This examination was interpreted and the report reviewed and electronically signed by: ELISA TANG MD on May 28 2022 9:57PM EST Narrative 05/28/2022 9:59 PM EDT * * *Final Report* * * DATE OF EXAM: May 24 2022 2:10PM LNB 0804 - BD DXA - AXIAL SKELETON / PROCEDURE REASON: multiple diagnoses * * * * Physician Interpretation * * * * EXAMINATION: DXA BONE DENSITOMETRY BD DXA - FOREARM SKELETON, BD DXA - AXIAL SKELETON PATIENT DEMOGRAPHICS: Age: 77 years, Race: , Gender: Female SCANNER INFORMATION: DXA Model: [employer] [id number] SITE SCANNED: Lumbar spine, bilateral hips and right forearm Date Scanned: 05/24/2022 2:10 PM CLINICAL HISTORY: DIAGNOSTIC Hypercalcemia Hyperparathyroidism (HCC) . RISK FACTORS FOR OSTEOPOROSIS AND ASSOCIATED FRACTURES REPORTED BY THIS PATIENT: Postmenopausal female Age Height loss of 1.5 inches or more Vitamin D deficiency Patient reported-rheumatoid arthritis (If this is not confirmed, the FRAX will need to be recalculated) CURRENT THERAPY: Vitamin D TECHNICAL LIMITATIONS: Degenerative disease of the spine The previous bone density was performed on a different DXA machine (new, updated model OR different location), thus no comparison can be made RESULTS: Lumbar spine (L1-L4): 1.084 g/cm2, T-score 0.3, Right Femoral Neck: 0.725 g/cm2, T-score -1.1, Right Total Hip: 0.776 g/cm2, T-score -1.4, Left Femoral Neck: 0.735 g/cm2, T-score -1.0, Left Total Hip: 0.784 g/cm2, T-score -1.3, Right Forearm, Distal 1/3 of Radius: 0.607 g/cm2, T-score -1.4, Procedure Note Provider, [facility] [place] - 05/28/2022 * * *Final Report* * * DATE OF EXAM: May 24 2022 2:10PM LNB 0804 - DXA - AXIAL SKELETON / PROCEDURE REASON: multiple diagnoses * * * * Physician Interpretation * * * * EXAMINATION: DXA BONE DENSITOMETRY BD DXA - FOREARM SKELETON, BD DXA - AXIAL SKELETON PATIENT DEMOGRAPHICS: Age: 77 years, Race: , Gender: Female SCANNER INFORMATION: DXA Model: [employer] [id number] SITE SCANNED: Lumbar spine, bilateral hips and right forearm Date Scanned: 05/24/2022 2:10 PM CLINICAL HISTORY: DIAGNOSTIC Hypercalcemia Hyperparathyroidism (HCC). RISK FACTORS FOR OSTEOPOROSIS AND ASSOCIATED FRACTURES REPORTED BY THIS PATIENT: Postmenopausal female Age Height loss of 1.5 inches or more Vitamin D deficiency Patient reported-rheumatoid arthritis (If this is not confirmed, the FRAX will need to be recalculated) CURRENT THERAPY: Vitamin D TECHNICAL LIMITATIONS: Degenerative disease of the spine The previous bone density was performed on a different DXA machine (new, updated model OR different location), thus no comparison can be made RESULTS: Lumbar spine (L1-L4): 1.084 g/cm2, T-score 0.3, Right Femoral Neck: 0.725 g/cm2, T-score -1.1, Right Total Hip: 0.776 g/cm2, T-score -1.4, Left Femoral Neck: 0.735 g/cm2, T-score -1.0, Left Total Hip: 0.784 g/cm2, T-score -1.3, Right Forearm, Distal 1/3 of Radius: 0.607 g/cm2, T-score -1.4, IMPRESSION IMPRESSION: THE LOWEST T-SCORE IS -1.4 IN THE RIGHT FOREARM AND RIGHT HIP 1) DIAGNOSIS (based on BMD alone): OSTEOPENIA The lowest T-score is used for diagnosis/impression Z-scores will be reported if <-1.0 or if > or = to+3.0 Note that if the patient's prior bone density test was consistent with osteoporosis, the clinical diagnosis remains Osteoporosis. Note that regardless of bone mineral density measurement, a patient may be clinically diagnosed with osteoporosis if they have had a prior fragility fracture. Caution: Medical conditions other than osteoporosis may cause low bone density, such as osteomalacia or renal osteodystrophy. Clinical correlation is necessary. 2) FRACTURE RISK (based on FRAX): 10-year absolute fracture risk: - major osteoporotic fracture = 14.0 % - hip fracture = 2.9 % - A 10 year probability of hip fracture greater than or equal to 3% or a 10 year probability of any major osteoporosis-related fracture greater than or equal to 20% should be considered for treatment. - All recommendations and calculations are to be consideredas guidelines and should not replace sound clinical judgement - Caution: Fracture risk may be increased independent of BMDin patients with corticosteroid use, age greater than 65 years, or a history of prior fragility fracture. RECOMMENDATIONS: Consider x-ray of the thoracic(with swimmers views) and lumbar spine to further evaluate for vertebral compression fractures, given patient's reported height loss. Note that some medical conditions may cause low bone density, such as osteomalacia, vitamin D deficiency, multiple myeloma, renal osteodystrophy, hyperparathyroidism, hypogonadism, certain endocrinologic conditions, inflammatory arthropathies, gastrointestinal diseases and malabsorption, and certain medications such as, but not limited to, systemic steroids, anticonvulsants, clinical correlation is necessary. Evaluation of vitamin D status is recommended All patients should receive the recommended daily allowance of calcium and vitamin D, as recommended by the NOF and clinically indicated. Weight bearing exercises and strength training should be considered. Cessation of smoking and moderation of intake of alcohol, caffeine and carbonated beverages are recommended (for additional information please refer to NOF website at www.nof.org). Evaluation for secondary causes of bone loss is recommended in patients with a Z-score of less than -1.5 (see web-site for more details). Patients who have had a height loss of 1.5 inches or more since their peak height (tallest height), should be considered for evaluation of vertebral compression fractures by x-ray of the thoracic(with swimmers views) and lumbar spine. RECOMMENDATIONS FOR PHARMACOLOGIC THERAPY: National Osteoporosis Foundation (NOF) treatment recommendations (2008) Postmenopausal women and men age 50 and older presenting with the following should be treated: A hip or vertebral (clinical or morphometric) fracture T-score less than or equal to -2.5 at the femoral neck, total hip or spine after appropriate evaluation to exclude secondary causes Low bone mass (T-score between -1.0 and -2.5 at the femoral neck, total hip or spine) and 10 year probability of hip fracture greater than or equal to 3% or a 10 year probability of any major osteoporosis-related fracture greater than or equal to 20% based on the [place].- adapted WHO algorithm for FRAX(TM): www.anthony.ac.uk/FRAX/tool.jsp or The WHO Fracture Risk Assessment Tool at www.NOF.org PLEASE NOTE: THE DXA SCANNER USED FOR THIS PATIENT IS LISTED IN THE ABOVE DEMOGRAPHICS. THE TYPE OF SCANNER MUST BE ENTERED IN THE FRAX(TM) CALCULATOR TO CORRECT FOR DXA SCANNER VARIABILITY. PLEASE NOTE FRAX(TM) + Does not apply to premenopausal patients + DOES NOT APPLY TO TREATED OR PREVIOUSLY TREATED PATIENTS within past 2 years, please review updates from website listed above. ALL RECOMMENDATIONS AND CALCULATIONS ARE TO BE CONSIDERED GUIDELINES AND SHOULD NOT REPLACE SOUND CLINICAL JUDGMENT Follow-up in 2 years or as clinically indicated. Patients that are taking corticosteroids, are transplant recipients or have hyperparathyroidism should have annual follow-up. Follow-up scans should always be done on the same machine for accurate comparison. FOR MORE INFORMATION: [facility] for Osteoporosis and Metabolic Bone Disease: www.ccf.org/arthritis/osteo National Osteoporosis Foundation: www.nof.org International Society of Clinical Densitometry www.iscd.org Cash On Delivery Clerk: [id number] Transcribe Date/Time: May 24 2022 2:42P Dictated by : ELISA TANG MD This examination was interpreted and the report reviewed and electronically signed by: ELISA TANG MD on May 28 2022 9:57PM EST Ghazala Humphrey MD RAD-PAMA Final Result * COLONOSCOPY - DIAGNOSTIC (05/26/2014 10:47 AM EDT) [facility] Gastrointestinal Endoscopy Patient Name: Lisa Barger Procedure Date: 05/26/2014 10:47 AM Date of : 1945 Admit Type: Outpatient Age: 69 Room: A31 Procedure 5 ([id number]) Gender: Female Note Status: Finalized Attending MD: Hamilton Brewer MD Procedure: Colonoscopy Indications: Personal history of malignant neoplasm of the colon Providers: Hamilton Brewer MD Referring Physician: Medicines: Midazolam 2 mg IV, Meperidine 50 mg IV Complications: No immediate complications. Requesting Provider: Procedure: Pre-Anesthesia Assessment: - Prior to the procedure, a History and Physical was performed, and patient medications and allergies were reviewed. The patient's tolerance of previous anesthesia was also reviewed. The risks and benefits of the procedure and the sedation options and risks were discussed with the patient. All questions were answered, and informed consent was obtained. Prior Anticoagulants: The patient has taken no previous anticoagulant or antiplatelet agents. ASA Grade Assessment: III - A patient with severe systemic disease. After reviewing the risks and benefits, the patient was deemed in satisfactory condition to undergo the procedure. After I obtained informed consent, the scope was passed under direct vision. Throughout the procedure, the patient's blood pressure, pulse, and oxygen saturations were monitored continuously. The Colonoscope was introduced through the anus and advanced to the cecum, identified by appendiceal orifice and ileocecal valve. The colonoscopy was performed without difficulty. The patient tolerated the procedure well. The quality of the bowel preparation was poor. The ileocecal valve, appendiceal orifice and rectum were photographed. Findings: In the rectum at 5 cm, there was the ileocolonic anastomosis. Approximally 10 cm proximal to the ileocolonic anastomosis was the cecum. A sessile polyp was found in the rectum just distal to the ileocolonic anastomosis. The polyp was 4 mm in size. The polyp was removed with a cold biopsy forceps. Resection and retrieval were complete. A sessile polyp was found in the cecum. The polyp was 4 mm in size. The polyp was removed with a cold biopsy forceps. Resection and retrieval were complete. Ulcerated and friable mucosa were present at the ileocecal valve. Biopsies were taken with a cold forceps for histology. Despite multiple attempts, the ileocecal valve could not be traversed. A scattered area of mildly erythematous mucosa was found in the ascending colon. This was biopsied with a cold forceps for histology. There was evidence of a prior end-to-end ileo-colonic anastomosis in the rectum. This was patent. This was characterized by healthy appearing mucosa. The retroflexed view of the distal rectum and anal verge was normal and showed no anal or rectal abnormalities. Impression: - Preparation of the colon was poor despite stopping the procedure, giving the patient an enema, and restarting the procedure.. - One 4 mm polyp in the rectum. Resected and retrieved. - One 4 mm polyp in the cecum. Resected and retrieved. - Mucosal ulceration at the ileocecal valve. Biopsied. - Erythematous mucosa in the ascending colon. Biopsied to rule out diversion colitis. - Patent end-to-end ileo-colonic anastomosis. - The distal rectum and anal verge are normal on retroflexion view. Estimated Blood Loss: Estimated blood loss was minimal. Recommendation: - Patient has a contact number available for emergencies. The signs and symptoms of potential delayed complications were discussed with the patient. Return to normal activities tomorrow. Written discharge instructions were provided to the patient. - Regular diet. - Continue present medications. Attending Participation: I personally performed the entire procedure. MD Hamilton Broderick MD 05/26/2014 1:02 PM This report has been signed electronically by Hamilton Brewer MD Number of Addenda: 0 Note Initiated On: 05/26/2014 10:47 AM Procedure Start: 11:02:40 AM Procedure End: 12:44:19 PM [facility] Anatomical Region Laterality Modality Other 05/26/2014 10:4 7 AM EDT Shine Patel MD [facility] Final Result from Last 3 Months or Most Recently Relevant to Health Maintenance Insurance MEDICARE [employer] SUPPLEMENT Advance Directives Documents on File Type Date Recorded Patient Hog Scalder Expl anation Advance Directive(s) 12/16/2013 4:36 PM Care Teams Senior Peoplesoft Developer Relationship Specialty Start Date End Date Logan Naidu MD [address] [place] [address] PCP - General Family Medicine 12/15/20
--- OUTSIDE RECORDS SUMMARY | 2025-03-06 09:10 | XMS_ITS | Clinical Summary ---
Author Organization [facility] Healthcare Address [address] [place] [address] Care Team Providers Care Manager New Product Name Role Phone Logan Naidu MD Primary Care Provider [phone] Logan Naidu MD Unavailable Allergies Active Allergy Reactions Criticality Noted Date Comments Cat Dander Unknown 07/23/2023 Influenza Virus Vaccine Other 10/09/2024 Penicillins Unknown 07/22/2013 Pneumococcal Vaccines Unknown High 03/11/2019 Other Reaction(s): porsha [place] Tetracycline Anaphylaxis,Hives High 02/13/2024 Medications aspirin 81 MG EC tablet Take 81 mg by mouth 1 (one) time each day at the same time. Active magnesium 250 MG tablet 1 (one) time each day at the same time. Active loperamide (Imodium) 1 MG/5ML solution Take by mouth Daily as needed. Active amLODIPine (Norvasc) 5 MG tabletIndications :Essential (primary) hypertension TAKE 1 TABLET BY MOUTH TWICE DAILY 180 tablet 3 4 Active carvedilol (Coreg) 6.25 MG tabletIndications :Essential hypertension Take 1 tablet (6.25 mg) by mouth in the morning and 1 tablet (6.25 mg) in the evening. Take with meals. 60 tablet 5 5 Active Active Problems Problem Noted Date Diagnosed Date Medicare annual wellness visit, subsequent 07/15 Assessment & Plan (07/15/2024 11:29 AM EDT): Will have labs drawn at specialists. Discussed proper diet and regular aerobic exercise. Need aerobic exercise 5-6 days a week for 30 minutes at a time. Smaller portions and limit total calories. Tetanus every 10 years. Advised not to smoke. Discussed daily Aspirin therapy. Class 1 obesity due to exces s calories with serious comorbidity and body mass index (BMI) of 31.0 to 31.9 in adult 07/15/2024 DDD (degenerative disc disease), cervical 2023 Edema of both legs 02/26/2024 Stage 3b chronic kidney disease (CKD) 02/26/2024 Assessment & Plan (12/12/2024 11:40 AM EDT): Renal function stable and follow with nephro. Assessment & Plan (10/09/2024 11:09 AM EST): Renal function stable and follow with nephro. Assessment & Plan (07/15/2024 11:30 AM EDT): Renal function stable and follow with nephrology. Assessment & Plan (02/26/2024 12:21 PM EDT): Renal function stable and follow with nephrology. Thoracic aortic aneurysm without rupture 024 Assessment & Plan (07/15/2024 11:30 AM EDT): Followed by specialists. Osteopenia of multiple sites 08/29/2022 Hyperparathyroidism 05/23/2022 Assessment & Plan (07/15/2024 11:29 AM EDT): Follow with endo. Renal cyst 02/23/2022 Hypercalcemia 01/13/2022 Lung nodules 12/15/2020 Hydronephrosis of left kidney 07/20/2014 Overview (08/05/2023): pt previously with bilateral ureter stents and removed. now complains with left flank pain. urology following. CT shows increased left hydronephrosis. 07/20 urology placed stent in left kidney. creatinine improving 07/22 creatinine normal. f/u with urology as an outpatient. left flank pain greatly improved On deep vein thrombosis (DVT) prophylaxis 2013 Overview (08/05/2023): heparin SQ / SCD's / ambulate Personal history of colon cancer 10/28/2013 Overview (08/05/2023): 09/05/13: Laparotomy, following bilateral ureteral stent placement by Urology, mobilization of splenic flexure, mobilization of hepatic flexure, subtotal colectomy and proctosigmoidectomy in continuity, colorectal anastomosis (end-to-end CDH 29), flexible sigmoidoscopy, diverting loop ileostomy, and partial omentectomy 07/15/14 s/p: Essential hypertension 01/28/2013 Assessment & Plan (12/12/2024 11:40 AM EDT): BP controlled and monitor PRN. Assessment & Plan (10/09/2024 11:08 AM EST): BP remains elevated and add coreg. Monitor PRN. Assessment & Plan (07/15/2024 11:29 AM EDT): BP okay today and monitor PRN. Assessment & Plan (02/26/2024 12:21 PM EDT): BP elevated but reports normal and monitor PRN. Pure hypercholesterolemia 01/28/2013 Resolved Problems Problem Noted Date Diagnosed Date Resolved Date Dermatitis 10/09/2024 12/12/2024 Assessment & Plan (10/09/2024 11:08 AM EST): Unclear cause of rash and treat with prednisone. Use steroid cream and hydroxyzine PRN. Abscess, scalp 02/26/2024 07/15/2024 Assessment & Plan (02/26/2024 12:21 PM EDT): Recent abscess but improved and monitor. Malignant neoplasm of rectum 08/05/2023 02/26/2024 Acute suppurative otitis med ia of left ear with spontaneous rupture of tympanic membrane 07/22/2023 02/26/2024 Sialolithiasis of submandibular gland 07/22/2023 07/15/2024 Goiter 05/23/2022 08/06/2023 Hyponatremia 02/24/2022 02/26/2024 Stage 3a chronic kidney disease 01/24/2022 02/26/2024 Other ascites 12/15/2020 07/15/2024 Small bowel obstruction 03/11/201907/25 Ileostomy care 01/26/2015 08/06/2023 Anemia 07/22/2014 07/15/2024 Overview (08/05/2023): stop IV fluids. start iron replacements. not tachycardic. BP stable recheck labs on day of appointment Hypotension 07/16/2014 02/26/2024 Overview (08/05/2023): likely from epidural catheter. will give fluid bolus and monitor... resolved Post-op pain 07/16/2014 08/06/2023 Overview (08/05/2023): epidural CUTTER MACHINE. acute pain following. will start oral pain meds once diet allows. maintain epidural today for planned OR 07/21 -- epidural DC'd. less surgical pain than neck pain. added muscle relaxant Colon stricture 08/26/2013 02/26/2024 Encounters Date Type Department Care Team Description 03/05/2025 Abstract [facility] [address] [place] [address] Logan Naidu MD 12/12/2024 11:00 AM EDT Office Visit [facility] [address] [place] [address] Logan Naidu MD Essential hypertension (Primary Dx); Stage 3b chronic kidney disease (CKD) ([facility]) 12/12/2024 Bamboo flowsheet [facility] [address] [place] [address] Logan Naidu MD 12/11/2024 Travel from Last 3 Months Family History Medical History Relation Name Comments Heart disease Father Heart disease Maternal Grandfather Stroke Maternal Grandmother Stroke Mother Heart disease Paternal Grandfather Hypertension Sibling Relation Name Status Comments Father Maternal Grandfather Maternal Grandmother Mother Paternal Grandfather Sibling Alive Social History Tobacco Use Types Packs/Day Years Used Date Smoking Tobacco: Never Smokeless Tobacco: Never Tobacco Cessation:Counseling Given: Not Answered Alcohol Use Standard Drinks/Week Comments Never 0 [...] 02/25/2024 How often do you attend chur or worship services? More than 4 times per year 02/25/2024 Do you belong to any clubs o r organizations such as worship groups, unions, fraternal or athletic groups, or [...] Recorded Patient Health Questionnaire-2 Score 0 07/15/2024 [facility] - Occupational Stress [...] place to sleep or slept in a detention (including now)? No 02/25/2024 Comments Unknown Sex and Gender Information Value Date Recorded Sex Assigned at Not on file Legal Sex Female 7:01 PM EDT Gender Identity Not on file Sexual Orientation Not on file Last Filed Vital Signs Vital Sign Reading Time Taken Comments Blood Pressure 136/74 12/12/2024 11:13 AM EDT Pulse 69 12/12/2024 11:13 AM EDT Temperature 36.2 C (97.1 F) 12/12/2024 11:13 AM EDT Respiratory Rate 18 12/12/2024 11:13 AM EDT Oxygen Saturation 99% 12/12/2024 11:13 AM EDT Inhaled Oxygen Concentration - - Weight 74.8 kg (165 lb) 12/12/2024 11:13 AM EDT Height 154.9 cm (5' 1 ) 12/12/2024 11:13 AM EDT Body Mass Index 31.18 12/12/2024 11:13 AM EDT Plan of Treatment Upcoming Encounters Date Type Department Care Team (Late st Contact Info) Description 07/21/2025 11:00 AM EDT Office Visit [facility] [address] [place] [address] Logan Naidu MD [address] [place] [id number] Health Maintenance Due Date Last Done Comments Pneumococcal Vaccine: 65+ Years (1 - PCV) 994 Influenza Vaccine (Season Ended) 2025 Medicare Annual Wellness (AWV) 07/15/2025 07/15/2024 Insurance MEDICARE AET Care Teams Manager New Product Relationship Specialty Start Date End Date Logan Naidu MD [address] [place] [address] PCP - General Family Medicine 02/26/24 Logan Naidu MD [address] [place] [id number] PCP - ACO Reach 10/31/24
--- OUTSIDE RECORDS SUMMARY | 2025-03-06 09:10 | XMS_ITS | Encounter Summary ---
Author Organization [facility] Address [address] [place] [address] Care Team Providers Care Loom Doffer Name Role Phone Saul Turner Primary Care Provider [phone] Anamika Moore RN Unavailable [phone] Logan Naidu MD Primary Care Provider [phone] Source Comments In the event this information is protected by the Federal Confidentiality of Alcohol and Drug AbusePatient Records regulations: The Federal rules restrict any use of the information to criminally investigate or prosecute any alcohol or drug abuse patient.[facility] Encounter Details Date Type Department Care Team (Late st Contact Info) Description 02/22/2015 Patient Msg Medical Records [address] [place] [address] Provider, [facility] Procedure Social [...] hearing? Answer Date of Assessment Author No 01/26/2015 10:20 AM EDT Beverly Aguirre RN * Are you blind or do you have serious difficulty seeing, even when wearing glasses? Answer Date of Assessment Author No 01/26/2015 10:20 AM EDT Beverly Aguirre RN * Do you have serious difficulty walking or climbing stairs? Answer Date of Assessment Author No 01/26/2015 10:20 AM EDT Beverly Aguirre RN * Do you have difficulty dressing or bathing? Answer Date of Assessment Author No 01/26/2015 10:20 AM EDT Beverly Aguirre RN * Because of a physical, mental, or emotional condition, do you have difficulty doing errands alone such as visiting a doctor's office or shopping? Answer Date of Assessment Author No 01/26/2015 10:20 AM EDT Beverly Aguirre RN documented as of this encounter Mental Status * Because of a physical, mental, or emotional condition, do you have serious difficulty concentrating, remembering, or making decisions? Answer Entry Date Author No 01/26/2015 10:20 AM Beverly Sanders RN documented in this encounter Plan of Treatment Upcoming Encounters Date Type Department Care Team (Late st Contact Info) Description 07/23/2025 9:00 AM EDT Office Visit [facility] [address] [place] [address] 1 year follow up 07/30/2025 10:00 AM EST Visit (SP) Office Hematology/Oncology [address] [place] [address] Arnol Martinez MD [address] [place] [address] 1 year follow up documented as of this encounter Visit Diagnoses Not on filedocumented in this encounter Care Teams Loom Doffer Relationship Specialty Start Date End Date Saul Turner [address] [place] [phone] PCP - General Family Medicine 07/15/13 12/14/20 Logan Naidu MD [address] [place] [address] PCP - General Family Medicine 12/15/20 Anamika Moore, RN [address] [place] [address] Transitional Punch Machine Operator 03/02/15 03/09/15 documented as of this encounter
--- OUTSIDE RECORDS SUMMARY | 2025-03-06 09:10 | XMS_ITS | Encounter Summary ---
Author Organization [facility] Address [address] [place] [address] Care Team Providers Care Geophysical Laboratory Supervisor Name Role Phone Logan Naidu MD Primary Care Provider [phone] Source Comments In the event this information is protected by the Federal Confidentiality of Alcohol and Drug AbusePatient Records regulations: The Federal rules restrict any use of the information to criminally investigate or prosecute any alcohol or drug abuse patient.[facility] Encounter Details Date Type Department Care Team (Late st Contact Info) Description 01/07/2023 Patient Msg Endocrinology [address] [place], [place] [id number] Ghazala Humphrey MD [address] [place] [address] Test results Social History Tobacco [...] N ot on file 10/21/2022 Data from: https://www.neighborhoodatlas.medicine.[facility]/. Last address used for calculation [place] [...] [facility] [address] [facility] [address] 1 year follow up 07/30/2025 10:00 AM EST Visit (SP) Office Hematology/Oncology [address] [facility] [address] Arnol Martinez MD [address] [place] [address] [place] [address] 1 year follow up documented as of this encounter Visit Diagnoses Not on filedocumented in this encounter Care Teams Geophysical Laboratory Supervisor Relationship Specialty Start Date End Date Logan Naidu MD [address] [place] [address] PCP - General Family Medicine 12/15/20 documented as of this encounter
--- OUTSIDE RECORDS SUMMARY | 2025-03-06 09:10 | XMS_ITS | Encounter Summary ---
Author Organization [facility] Address [address] [place] [address] Care Team Providers Care Construction Helper Name Role Phone Logan Naidu MD Primary Care Provider [phone] Source Comments In the event this information is protected by the Federal Confidentiality of Alcohol and Drug AbusePatient Records regulations: The Federal rules restrict any use of the information to criminally investigate or prosecute any alcohol or drug abuse patient.[facility] Encounter Details Date Type Department Care Team (Late st Contact Info) Description 06/01/2022 Patient Msg Endocrinology [address] [place], [place] [phone] Ghazala Humphrey MD [address] [place] [address] Test results Social History Tobacco Use Types Packs/Day Years Used Date Smoking Tobacco: Never Smokeless Tobacco: Never Alcohol Use Standard Drinks/Week Comments No 0 (1 standard drink = 0.6 oz pur e alcohol) PHQ-2 Answer Date Recorded PHQ-2 score 0 01/11/2022 Area Deprivation Index Answer Date Michael rded National Score (1-100), lower number is lower ri sk 71 02/23/2022 State Score (1-10), lower number is lower risk N ot on file 02/23/2022 Data from: https://www.neighborhoodatlas.medicine.[facility]/. Last address used for calculation [place] 02/23/2022 Comments No Sex and Gender Information Value [...] Description 07/23/2025 9:00 AM EDT Office Visit [facility] [address] [place] [address] 1 year follow up 07/30/2025 10:00 AM EST Visit (SP) Office Hematology/Oncology [address] [facility] [place] [address] Arnol Martinez MD [address] [place] [address] [place] [address] 1 year follow up documented as of this encounter Visit Diagnoses Not on filedocumented in this encounter Care Teams Construction Helper Relationship Specialty Start Date End Date Logan Naidu MD [address] [place] [address] PCP - General Family Medicine 12/15/20 documented as of this encounter
--- OUTSIDE RECORDS SUMMARY | 2025-03-06 09:10 | XMS_ITS | Encounter Summary ---
Author Organization [facility] Address [address] [place] [address] Care Team Providers Care Avionics Systems Engineer Name Role Phone Logan Naidu MD Primary Care Provider [phone] Source Comments In the event this information is protected by the Federal Confidentiality of Alcohol and Drug AbusePatient Records regulations: The Federal rules restrict any use of the information to criminally investigate or prosecute any alcohol or drug abuse patient.[facility] Encounter Details Date Type Department Care Team (Late st Contact Info) Description 04/12/2023 Patient Msg Colorectal Surgery [address] [id number] Provider, [facility] Surgical outcome and long-term bowel function Social History Tobacco Use Types Packs/Day Years Used Date Smoking Tobacco: Never Smokeless Tobacco: Never Alcohol Use Standard Drinks/Week Comments No 0 (1 standard drink = 0.6 oz pur e alcohol) PHQ-2 Answer Date Recorded PHQ-2 score 1 01/24/2023 Area Deprivation Index Answer Date Michael rded National Score (1-100), lower number is lower ri sk 76 01/25/2023 State Score (1-10), lower number is lower risk 6 01/25/2023 Data from: https://www.neighborhoodatlas.[facility]/. Last address used for calculation [place] [...] Description 07/23/2025 9:00 AM EDT Office Visit [facility] [address] [place] [address] 1 year follow up 07/30/2025 10:00 AM EST Visit (SP) Office Hematology/Oncology [address] [place] [address] Arnol Martinez MD [address] [place] [address] 1 year follow up documented as of this encounter Visit Diagnoses Not on filedocumented in this encounter Care Teams Avionics Systems Engineer Relationship Specialty Start Date End Date Logan Naidu MD [address] [place] [address] PCP - General Family Medicine 12/15/20 documented as of this encounter
--- OUTSIDE RECORDS SUMMARY | 2025-03-06 09:10 | XMS_ITS | Encounter Summary ---
Author Organization [facility] Address [address] [place] [address] Care Team Providers Care Deck Builder Name Role Phone Logan Naidu MD Primary Care Provider [phone] Source Comments In the event this information is protected by the Federal Confidentiality of Alcohol and Drug AbusePatient Records regulations: The Federal rules restrict any use of the information to criminally investigate or prosecute any alcohol or drug abuse patient.[facility] Encounter Details Date Type Department Care Team (Late st Contact Info) Description 06/20/2022 Get Medical Advice Kidney Medicine [address] [place], [place] [address] Arash Mo MD [address] [place] [address] Appt. Social History Tobacco Use Types Packs/Day Years [...] N ot on file 02/23/2022 Data from: https://www.neighborhoodatlas.medicine.[facility]/. Last address used for calculation [address] 02/23/2022 Comments No Sex and Gender [...] Description 07/23/2025 9:00 AM EDT Office Visit [facility] [address] [facility] [place] [address] 1 year follow up 07/30/2025 10:00 AM EST Visit (SP) Office Hematology/Oncology [address] [facility] [place] [address] Arnol Martinez MD [address] [place] [address] [place] [address] 1 year follow up documented as of this encounter Procedures Procedure Name Priority Date/Time Associated Diagnosis Comments COMPREHENSIVE METABOLIC PANEL Routine 07/26/2022 12:35 PM EDT Chronic renal failure, stage 3b (HCC) Malignant neoplasm of colon, unspecified part of colon (HCC) Lung nodules CBC + DIFF Routine 07/26/2022 12:35 PM EDT Chronic renal failure, stage 3b (HCC) Malignant neoplasm of colon, unspecified part of colon (HCC) Lung nodules documented in this encounter Results * (ABNORMAL) COMP METABOLIC PANEL (07/26/2022 12:35 PM EDT) Pathologist [facility] Protein, Total 7.8 6.3 - 8.0 g/dL 07/26/2022 1:30 PM EDT [facility] Albumin 4.8 3.9 - 4.9 g/dL 07/26/2022 1:30 PM EDT [facility] Calcium, Total 11.0(H) 8.5 - 10.2 mg/dL 07/26/2022 1:30 PM EDT [facility] Bilirubin, Total 0.4 0.2 - 1.3 mg/dL 07/26/2022 1:30 PM EDT [facility] Alkaline Phosphatase 72 34 - 123 U/L 07/26/2022 1:30 PM EDT [facility] AST 25 13 - 35 U/L 07/26/2022 1:30 PM EDT [facility] ALT 17 7 - 38 U/L 07/26/2022 1:30 PM EDT [facility] Glucose 91 74 - 99 mg/dL 07/26/2022 1:30 PM EDT [facility] Comment: The [place] Diabetes Association (ADA) provides guidance for cutoff [...] Standards of Medical Care in Diabetes 2016, [place] Diabetes Association. Diabetes Care. 2016.39(Suppl 1). BUN 23(H) 7 - 21 mg/dL 07/26/2022 1:30 PM EDT [facility] Creatinine 1.35(H) 0.58 - 0.96 mg/dL 07/26/2022 1:30 PM EDT [facility] Sodium 137 136 - 144 mmol/L 07/26/2022 1:30 PM EDT [facility] Potassium 4.2 3.7 - 5.1 mmol/L 07/26/2022 1:30 PM EDT [facility] Chloride 99 97 - 105 mmol/L 07/26/2022 1:30 PM EDT [facility] CO2 28 22 - 30 mmol/L 07/26/2022 1:30 PM EDT [facility] Anion Gap 10 9 - 18 mmol/L 07/26/2022 1:30 PM EDT [facility] Estimated Glomerular Filtration Rate 40(L) >=60 mL/min/1. 73m 07/26/2022 1:30 PM T [facility] Comment:Estimated Glomerular Filtration Rate (eGFR) is [...] BLOOD SPECIMEN / Unknown Venipuncture / Unknown 07/26/2022 12:35 PM EDT 07/26/2022 12:48 PM EDT us Arnol Martinez MD LABORATORY Final Result [facility] [address] [place] [address] * CBC + DIFF (07/26/2022 12:35 PM EDT) WBC 8.59 3.70 - 11.00 k/uL 07/26/2022 12:51 PM EDT [facility] RBC 4.05 3.90 - 5.20 m/uL 07/26/2022 12:51 PM EDT [facility] Hemoglobin 12.1 11.5 - 15.5 g/dL 07/26/2022 12:51 PM EDT [facility] Hematocrit 37.5 36.0 - 46.0 % 07/26/2022 12:51 PM EDT [facility] MCV 92.6 80.0 - 100.0 fL 07/26/2022 12:51 PM EDT [facility] MCH 29.9 26.0 - 34.0 pg 07/26/2022 12:51 PM EDT [facility] MCHC 32.3 30.5 - 36.0 g/dL 07/26/2022 12:51 PM EDT [facility] RDW-CV 13.2 11.5 - 15.0 % 07/26/2022 12:51 PM EDT [facility] Platelet Count 255 150 - 400 k/uL 07/26/2022 12:51 PM EDT [facility] MPV 10.1 9.0 - 12.7 fL 07/26/2022 12:51 PM EDT [facility] Neutrophils % 69.6 % 07/26/2022 12:51 PM EDT [facility] Abs Neut 5.99 1.45 - 7.50 k/uL 07/26/2022 12:51 PM EDT [facility] Lymphocytes % 20.3 % 07/26/2022 12:51 PM EDT [facility] Abs Lymph 1.74 1.00 - 4.00 k/uL 07/26/2022 12:51 PM EDT [facility] Monocytes % 7.6 % 07/26/2022 12:51 PM EDT [facility] Abs Hughes 0.65 <0.87 k/uL 07/26/2022 12:51 PM EDT [facility] Eosinophils % 1.9 % 07/26/2022 12:51 PM EDT [facility] Abs Eosin 0.16 <0.46 k/uL 07/26/2022 12:51 PM EDT [facility] Basophils % 0.5 % 07/26/2022 12:51 PM EDT [facility] Abs Baso 0.04 <0.11 k/uL 07/26/2022 12:51 PM EDT [facility] Immature Granulocytes % 0.1 % 07/26/2022 12:51 PM EDT [facility] Abs Immature Gran <0.03 <0.10 k/uL 022 12:51 PM EDT [facility] NRBC 0.0 /100 WBC 07/26/2022 12:51 PM EDT [facility] Absolute nRBC <0.01 <0.01 k/uL 07/26/2022 12:51 PM EDT [facility] Diff Type Auto 07/26/2022 12:51 PM EDT [facility] Blood BLOOD SPECIMEN / Unknown Venipuncture / Unknown 07/26/2022 12:35 PM EDT 07/26/2022 12:48 PM EDT Narrative [facility] - 07/26/2022 12:51 PM EDT This is an appended report. These results have been appended to a previously verified report. Arnol Martinez MD LABORATORY Final Result [facility] [address] [place] [address] documented in this encounter Visit Diagnoses Diagnosis Chronic renal failure, stage 3b (HCC) Malignant neoplasm of colon, unspecified part of colon (HCC) Lung nodules Other nonspecific abnormal finding of lung field documented in this encounter Care Teams Deck Builder Relationship Specialty Start Date End Date Logan Naidu MD [address] [place] [address] PCP - General Family Medicine 12/15/20 documented as of this encounter
--- OUTSIDE RECORDS SUMMARY | 2025-03-06 09:11 | XMS_ITS | Encounter Summary ---
Author Organization [facility] Address [address] [place] [address] Care Team Providers Care Cap Maker Name Role Phone Saul Turner Primary Care Provider [phone] Anamika Moore RN Unavailable [phone] Logan Naidu MD Primary Care Provider [phone] Source Comments In the event this information is protected by the Federal Confidentiality of Alcohol and Drug AbusePatient Records regulations: The Federal rules restrict any use of the information to criminally investigate or prosecute any alcohol or drug abuse patient.[facility] Encounter Details Date Type Department Care Team (Late st Contact Info) Description 11/05/2014 Patient Msg Medical Records [address] [place] [address] Provider, [facility] Blood Management Referral Social History Tobacco Use Types Packs/Day Years [...] Assessment Author No 09/29/2014 3:11 PM EST MervinNealbharat * Are you blind or do you have serious difficulty seeing, even when wearing glasses? Answer Date of Assessment Author No 09/29/2014 3:11 PM EST Neal Jeffries * Do you have serious difficulty walking or climbing stairs? Answer Date of Assessment Author No 09/29/2014 3:11 PM EST MervinNeal * Do you have difficulty dressing or bathing? Answer Date of Assessment Author No 09/29/2014 3:11 PM EST Neal Jeffriesbharat * Because of a physical, mental, or [...] Entry Date Author No 09/29/2014 3:11 PM EST Neal Jeffriesbharat documented in this encounter Plan of Treatment Upcoming Encounters Date Type Department Care Team (Late st Contact Info) Description 07/23/2025 9:00 AM EDT Office Visit [facility] [address] [facility] [place] [address] 1 year follow up 07/30/2025 10:00 AM EST Visit (SP) Office Hematology/Oncology [address] [facility] [address] Arnol Martinez MD [address] [facility] [place] [address] 1 year follow up documented as of this encounter Visit Diagnoses Not on filedocumented in this encounter Care Teams Cap Maker Relationship Specialty Start Date End Date Saul Turner [address] [place] [address] [place] [address] PCP - General Family Medicine 07/15/13 12/14/20 Logan Naidu MD [address] [place] [address] PCP - General Family Medicine 12/15/20 Anamika Moore, RN [address] [place] [id number] Transitional Trade Recruiter 03/02/15 03/09/15 documented as of this encounter
--- OUTSIDE RECORDS SUMMARY | 2025-03-06 09:11 | XMS_ITS | Encounter Summary ---
Author Organization [facility] Address [address] [place] [address] Care Team Providers Care Bioprocess Engineer Name Role Phone Logan Naidu MD Primary Care Provider [phone] Source Comments In the event this information is protected by the Federal Confidentiality of Alcohol and Drug AbusePatient Records regulations: The Federal rules restrict any use of the information to criminally investigate or prosecute any alcohol or drug abuse patient.[facility] Encounter Details Date Type Department Care Team (Late st Contact Info) Description 10/25/2022 Patient Msg Endocrinology [address] [place], [place] [id number] Ghazala Humphrey MD [address] [place] [address] Test results Social History Tobacco [...] N ot on file 10/21/2022 Data from: https://www.neighborhoodatlas.medicine.[facility]/. Last address used for calculation [address] [...] 07/23/2025 9:00 AM EDT Office Visit [facility] [address] [facility] [place] [address] 1 year follow up 07/30/2025 10:00 AM EST Visit (SP) Office Hematology/Oncology [address] [facility] [place] [address] Arnol Martinez MD [address] [place] [address] [place] [address] 1 year follow up documented as of this encounter Visit Diagnoses Not on filedocumented in this encounter Care Teams Bioprocess Engineer Relationship Specialty Start Date End Date Logan Naidu MD [address] [place] [address] PCP - General Family Medicine 12/15/20 documented as of this encounter
--- OUTSIDE RECORDS SUMMARY | 2025-03-06 09:11 | XMS_ITS | Encounter Summary ---
Author Organization [facility] Address [address] [place] [address] Care Team Providers Care Piano Mover Name Role Phone Saul Turner Primary Care Provider + [phone] Anamika Moore RN Unavailable [phone] Logan Naidu MD Primary Care Provider [phone] Source Comments In the event this information is protected by the Federal Confidentiality of Alcohol and Drug AbusePatient Records regulations: The Federal rules restrict any use of the information to criminally investigate or prosecute any alcohol or drug abuse patient.[facility] Encounter Details Date Type Department Care Team (Late st Contact Info) Description 11/12/2014 Get Medical Advice Colorectal Surgery [address] [address] Shine Patel MD [address] [place] [address] RE: Upcoming Appointment Question Social History Tobacco Use Types Packs/Day Years [...] Assessment Author No 09/29/2014 3:11 PM EST Catalina Jeffries documented as of this encounter Mental Status * Because of a physical, mental, or emotional condition, do you have serious difficulty concentrating, remembering, or making decisions? Answer Entry Date Author No 09/29/2014 3:11 PM EST Neal Jeffries documented in this encounter Plan of Treatment Upcoming Encounters Date Type Department Care Team (Late st Contact Info) Description 07/23/2025 9:00 AM EDT Office Visit [facility] [address] [place] [address] 1 year follow up 07/30/2025 10:00 AM EST Visit (SP) Office Hematology/Oncology [address] [place] [address] Arnol Martinez MD [address] [place] [address] 1 year follow up documented as of this encounter Visit Diagnoses Not on filedocumented in this encounter Care Teams Piano Mover Relationship Specialty Start Date End Date Saul Turner [address] [place] [phone] PCP - General Family Medicine 07/15/13 12/14/20 Logan Naidu MD [address] [place] [address] PCP - General Family Medicine 12/15/20 Anamika Moore, RN [address] [place] [address] Transitional Unit Nurse 03/02/15 03/09/15 documented as of this encounter
--- OUTSIDE RECORDS SUMMARY | 2025-03-06 09:11 | XMS_ITS | Encounter Summary ---
Author Organization [facility] Address [address] [place] [address] Care Team Providers Care Senior Technologist Name Role Phone Saul Truner Primary Care Provider + [phone] Anamika Moore RN Unavailable [phone] Logan Naidu MD Primary Care Provider [phone] Source Comments In the event this information is protected by the Federal Confidentiality of Alcohol and Drug AbusePatient Records regulations: The Federal rules restrict any use of the information to criminally investigate or prosecute any alcohol or drug abuse patient.[facility] Encounter Details Date Type Department Care Team (Late st Contact Info) Description 11/05/2014 Patient Msg Medical Records [address] [place] [address] Provider, [facility] Procedure Social [...] Description 07/23/2025 9:00 AM EDT Office Visit [facility] [address] [facility] [place] [place] [address] 1 year follow up 07/30/2025 10:00 AM EST Visit (SP) Office Hematology/Oncology [address] [facility] [place] [address] Arnol Martinez MD [address] [facility] [place] [address] 1 year follow up documented as of this encounter Visit Diagnoses Not on filedocumented in this encounter Care Teams Senior Technologist Relationship Specialty Start Date End Date Saul Turner [address] [place] [address] [place] [address] PCP - General Family Medicine 07/15/13 12/14/20 Lgoan Naidu MD [address] [place] [address] PCP - General Family Medicine 12/15/20 Anamika Moore, RN [address] [place] [address] Transitional Desktop Publisher 03/02/15 03/09/15 documented as of this encounter
--- OUTSIDE RECORDS SUMMARY | 2025-03-06 09:27 | XMS_ITS | CCD ---
Author Organization [facility]iniSys[facility] Care Team Providers Care Press And Blow Machine Tender Name Role Phone NEELIMA PERKINS Attending Unavailable NADERER, DR LOGAN Kerr Primary Care Unavailable ROSSNEELIMA Admitting Unavailable ROSS, NEELIMA Consulting Unavailable REQUEST, DR CASILLAS LISTED Attending Unavaila ble REQUEST, DR CASILLAS LISTED Admitting Unavaila ble REQUEST, DR CASILLAS LISTED Consulting Unavaila ble NADERER, DR LOGAN Kerr Primary Care Unavailable NADERER, DR LOGAN Kerr Primary Care Unavailable PAY, DR WASSERMAN Attending Unavailable PAY, DR WASSERMAN Admitting Unavailable PAY, DR WASSERMAN Consulting Unavailable AMBURN, DR DIANA CLARK Primary Care Unavaila ble REQUEST, DR CASILLAS LISTED Attending Unavaila ble REQUEST, DR CASILLAS LISTED Admitting Unavaila ble ROSS, NEELIMA Consulting Unavailable REQUEST, NONE LISTED Consulting Unavaila ble Logan Gomez Primary Care Provider Logan Gomez Primary Care Provider Logan Gomez Primary Care Provider [phone] Logan Gomez Primary Care Provider [phone] Donna Corey Unavailable DO Alan Adams Attending Provider MD Logan Gomez Primary Care Provider Olaf Bowen Unavailable Alan Adams Attending Unavailable Alan Adams Admitting Unavailable Logan Gomez Primary Care Unavailable Logan Gomez Primary Care Provider Logan Gomez MD Primary Care Provider [phone] Logan Gomez MD Primary Care Provider [phone] ARNOL DAUGHERTY Referring Unavailable LOGAN GOMEZ Primary Care Unavailable BAKHOUS, AZIZ Referring Unavailable NADERER, LOGAN A Primary Care Unavailable NADERER, LOGAN A Primary Care Unavailable BAKHOUS, AZIZ Referring Unavailable NADERER, LOGAN A Primary Care Unavailable NADERER, LOGAN A Primary Care Unavailable ABHYANKAR, ARNOL Attending Unavailable ABHYANKAR, ARNOL Referring Unavailable NADERER, LOGAN A Primary Care Unavailable ABHYANKAR, ARNOL Referring Unavailable NADERER, LOGAN Attending Unavailable NADERER, LOGAN Attending Unavailable NADERER, LOGAN Attending Unavailable NADERER, LOGAN Attending Unavailable Allergies Allergy Classification Reported Allergen(s) Allergy Type Date of Onset Reaction(s) Facility (9 sources) Penicillins; Translations: [PENICILLINS] Drug allergy (disorder) 3 Unknown Reaction [facility] Rep[facility] (7 sources) Tetracycline Drug Allergy 4 anaphylaxis [facility] (1 source) cat dander Drug allergy (disorder) [facility] (20 sources) influenza A virus (H1N1) antigen / influenza A virus (H3N2) antigen / influenza B virus antigen; Translations: [FLU VAC 2019 [id number](PF) ] Drug Allergy 9 Other: See Comments [facility] (6 sources) Penicillins Drug Allergy 3 Unknown [facility] (20 sources) Pneumococcal vaccine; Translations: [PNEUMOCOCCAL VACCINE] Drug Allergy 9 Other: See Comments [facility] (14 sources) Tetracycline (class of antibiotic); Translations: [TETRACYCLINES] Drug Allergy 3 Rash [facility] (20 sources) Dtap-Ipv Component 1 Of 2 (Pf); Translations: [DTAP-IPV COMPONENT 1 OF 2 (PF)] Drug Allergy 9 Other: See Comments [facility] (20 sources) Penicillins Drug Allergy 3 Unknown [facility] (20 sources) Tetracycline (class of antibiotic) Drug Allergy 3 Rash [facility] (8 sources) Penicillin G Benzathine Drug allergy 4 unknown [facility] (11 sources) Tetracycline Drug Allergy 4 anaphylaxis, Hives [facility] (1 source) Penicillins Drug allergy (disorder) 3 [facility] (1 source) Tetracyclines Drug allergy (disorder) 3 [facility] (9 sources) Penicillins Drug Allergy 3 Unknown [facility] (9 sources) Cat Hair Extract Allergy to substance 3 Unknown [facility] Work Phone: (9 sources) Pneumococcal Vaccines Drug Allergy 9 Unknown [facility] (2 sources) Haemophilus influenzae type b Drug Allergy 5 Other [facility] Healthcare Medications Current Medications Medication Drug Class(es) Dates Sig (Normalized) Sig (Original) amLODIPine 5 mg oral tablet (20 sources) Dihydropyridine Calcium Channel Mayra Start: 03-23-2022 End: 06-09-2024 take 1 tablet by mouth twice daily Amlodipine 5 mg tablet Active 5 MG PO Twice daily February 13, 2024 12:00am Start: 09-20-2017 End: 03-23-2022 take 1 tablet by mouth once daily amLODIPine (NORVASC) 5 mg tablet Take 5 mg by mouth once daily. 0 09/20/2017 03/23/2022 Discontinued amLODIPine Besyl ate Not-Taking Comment on above: Take 5 mg by mouth o nce daily. Take 1 tablet by laz th twice daily. Aspir-81 (1 source) Aspir-81 Active carvedilol 6.25 mg oral tablet (3 sources) alpha-Adrenergic Mayra, beta-Adrenergic Mayra Start: 02-28-2025 Carvedilol 6.25 mg tablet Active MG PO February 28, 2025 12:00am Start: 10-09-2024 take 1 tablet by laz th in the morning carvedilol (Coreg) 6.25 MG tablet Indications: Essential hypertension (CMS/HCC) Take 1 tablet (6.25 mg) by mouth in the morning and 1 tablet (6.25 mg) in the evening. Take with meals. 60 tablet 5 10/09/2024 Active Start: 10-09-2024 take 1 tablet by lza th in the morning carvedilol (Coreg) 6.25 MG tablet Indications: Essential hypertension (CMS/HCC) Take 1 tablet (6.25 mg) by mouth in the morning and 1 tablet (6.25 mg) in the evening. Take with meals. 60 tablet 5 10/09/2024 Active cholecalciferol 0.05 mg oral capsule (20 sources) Vitamin D Cholecalciferol, Vitamin D3, 50 mcg (2,000 unit) cap Active Cholecalciferol, Vitamin D3, (D3-2000) 50 mcg (2,000 unit) cap enteric contrast (will be provided with radiology test) (1 source) Start: 01-26-2022 End: 01-27-2022 enteric contrast (will be provided with radiology test) For CT CHESTABD/PEL W IVCON Routine order Administer, As Directed One Time Only, via Oral, Rectal, both Oral and Rectal, Enteric Tube, Stoma or Indwelling Catheter, Enteric Contrast as designated per enteric contrast guidelines 1 Each 0 01/26/2022 01/27/2022 Active Comment on above: For CT CHESTABD/PEL W IVCON Routine order Administer, As Directed One Time Only, via Oral, Rectal, both Oral and Rectal, Enteric Tube, Stoma or Indwelling Catheter, Enteric Contrast as designated per enteric contrast guidelines fluticasone propionate 0.05 mg/actuat metered dose nasal spray (1 source) Corticosteroid Start: 12-25-2022 take 2 spray(s) nasal route once daily Fluticasone Propionate 50 MCG/ACT 2 sprays Nasally Once a day for 14 day(s) Dec, Active furosemide 40 mg oral tablet (9 sources) Loop Diuretic Start: 06-06-2023 End: 10-09-2024 take 1 tablet by mouth every twenty-four hours as needed furosemide (Lasix) 40 MG tablet Take 40 mg by mouth Daily as needed. 06/06/2023 10/09/2024 Discontinued hydrOXYzine hydrochloride 25 mg oral tablet (2 sources) Antihistamine Start: 10-09-2024 take 1 tablet by mouth four times daily as needed hydrOXYzine HCl (Atarax) 25 MG tablet Indications: Dermatitis Take 1 tablet (25 mg) by mouth 4 (four) times a day as needed for itching 30 tablet 3 10/09/2024 Active Start: 10-09-2024 take 1 tablet by laz th four times daily as needed hydrOXYzine HCl (Atarax) 25 MG tablet Indications: Dermatitis Take 1 tablet (25 mg) by mouth 4 (four) times a day as needed for itching 30 tablet 3 10/09/2024 Active iv contrast (will be provided with radiology test) (1 source) Start: 01-26-2022 End: 01-27-2022 iv contrast (will be provided with radiology test) CT Chest ABD/PEL-Inject, intravenously, once for 1 dose.No IV access, insert saline lock prior to the beginning of sedation, infusion, injection of imaging exam. Discontinue saline lock post exam. If Pt. has a central line or IVAD, may access for administration according to line specific nursing protocol. Once exam is complete flush line and de-access according to line specific nursing protocol in the CT contrast administration guidelines link. 1 Each 0 01/26/2022 01/27/2022 Active Comment on above: CT Chest ABD/PEL-Inj ect, intravenously, once for 1 dose.No IV access, insert saline lock prior to the beginning of sedation, infusion, injection of imaging exam. Discontinue saline lock post exam. If Pt. has a central line or IVAD, may access for administration according to line specific nursing protocol. Once exam is complete flush line and de-access according to line specific nursing protocol in the CT contrast administration guidelines link. loperamide hydrochloride 0.2 mg/ml oral solution (20 sources) Opioid Agonist loperamide (Imod ium) 1 MG/5ML solution Take by mouth Daily as needed. Active End: 07-31-2024 LOPERAMIDE HCL (IMODIUM ORAL ) Take by mouth as needed. 07/31/2024 Discontinued LOPERAMIDE HCL ( IMODIUM ORAL) Take by mouth as needed. Active Imodium A-D prn Not-Taking Imodium A-D prn Active LOPERAMIDE HCL ( IMODIUM ORAL) Take by mouth as needed. 0 Active Comment on above: Take by mouth as nee ded. Magnesium (20 sources) Magnesium 250 mg tab Active magnesium 250 MG tablet 1 (one) time each day at the same time. Active take 1 tablet by mouth once maribel y Magnesium 250 MG 1 tablet with a meal Orally Once a day Active Magnesium Active Magnesium 250 mg tab magnesium oxide 250 mg oral tablet (6 sources) Start: 02-13-2024 take 1 tablet by mouth once daily Magnesium Oxide 250 mg magnesium tablet Active 1 TAB PO Daily February 13, 2024 12:00am Free[employer] tablet with a meal Orally Once a day; Note: Source Status: Taking; Provider: Andrés Babin ( ) MEDICATION, NON-DATABASE (20 sources) take 1 capsule by mouth once daily MEDICATION, NON-DATABASE Take 1 capsule by mouth once daily. RESTORE (EYE PROMISE) Active take 1 capsule by mouth once ambreen ly MEDICATION, NON-DATABASE Take 1 capsule by mouth once daily. RESTORE (EYE PROMISE) 0 Active Comment on above: Take 1 capsule by mo uth once daily. RESTORE (EYE PROMISE) methylPREDNISolone 4 mg oral tablet (1 source) Corticosteroid Start: Medrol 4 MG as directed Orally as directed for 6 days Dec, Active Multivitamin capsule (20 sources) take 1 capsule by mouth once daily Multivitamin capsule Take 1 capsule by mouth once daily. Active take 1 capsule by mouth once ambreen ly Multivitamin capsule Take 1 capsule by mouth once daily. 0 Active Comment on above: Take 1 capsule by mo ut once daily. Multivitamin preparation (2 sources) Multi Vitamin Ac tive microencapsulated potassium chloride 20 meq extended release oral tablet (9 sources) Start: End: potassium chloride CR (Klor-Con M20) 20 MEQ ER tablet Take 20 mEq by mouth Daily as needed. 06/06/2023 10/09/2024 Discontinued predniSONE 50 mg oral tablet (2 sources) Start: End: take 1 tablet by mouth once daily predniSONE (Deltasone) 50 MG tablet Indications: Dermatitis Take 1 tablet (50 mg) by mouth Daily for 6 days 6 tablet 10/09/2024 10/15/2024 Active Restore (2 sources) Restore Active triamcinolone acetonide 5 mg/ml topical cream (3 sources) Corticosteroid Start: triamcinolone (Kenalog) 0.5 % cream Indications: Dermatitis Apply topically 3 (three) times a day 60 g 2 10/09/2024 Active Start: 10-09-2024 triamcinolone (Kenalog) 0.5 % cream Indications: Dermatitis Apply topically 3 (three) times a day 60 g 2 10/09/2024 Active Start: 03-14-2019 Triamcinolone Acetonide 0.5 % 1 application to affected area Externally Twice a day for 14 days Feb, Not-Taking Vitamin D3 (1 source) Vitamin D3 Activ e Zinc (1 source) Zinc Active Completed/Discontinued Medications Medication Drug Class(es) Dates Sig (Normalized) Sig (Original) [id number] 200 actuat albuterol 0.09 mg/actuat metered dose inhaler (8 sources) beta2-Adrenergic Agonist Start: 02-13-2024 End: 03-25-2024 take 2 puff(s) by inhalation four times daily as needed Albuterol Sulfate 90 mcg/actuation HFA aerosol inhaler Discontinued 2 PUFF INHALATION Four times daily February 13, 2024 12:00am March 25, 2024 1:56pm FreeTextSi puffs Inhalation 4 times a day prn; Note: Source Status: Not-Takingundefined PRN; Refills: 0; Provider: Leora Kerr Start: 12-25-2022 take 2 puff(s) by in halation four times daily as needed Albuterol Sulfate HFA 108 (90 Base) MCG/ACT 2 puffs Inhalation 4 times a day prn Dec, Active Start: 12-25-2022 take 2 puff(s) by in halation four times daily as needed Albuterol Sulfate HFA 108 (90 Base) MCG/ACT 2 puffs Inhalation 4 times a day prn Dec, Not-Taking aspirin 81 mg delayed release oral tablet (20 sources) Platelet Aggregation Inhibitor, Nonsteroidal Anti-inflammatory Drug Start: 02-13-2024 End: 02-28-2025 take 1 tablet by mouth once daily Aspirin 81 mg tablet,delayed release (DR/EC) Discontinued 81 MG PO Daily February 13, 2024 12:00am February 28, 2025 10:42am Comment on above: Take 81 mg by mouth once daily. cephalexin 500 mg oral capsule (7 sources) Cephalosporin Antibacterial Start: 02-13-2024 End: 03-25-2024 take 1 capsule by mouth three times daily Cephalexin 500 mg capsule Discontinued 500 MG PO Three times daily 13 04February 13, 2024 12:00am March 25, 2024 1:55pm Start: 07-06-2021 take 1 capsule by [facility] every eight hours Cephalexin 500 MG 1 capsule Orally three times a day for 10 day(s) Dec, Active clindamycin 150 mg oral capsule (2 sources) Lincosamide Antibacterial Start: 07-12-2023 End: 07-31-2024 take 2 capsules by mouth every six hours clindamycin (CLEOCIN) 150 mg capsule TAKE 2 CAPSULES BY MOUTH EVERY 6 HOURS 07/12/2023 07/31/2024 Discontinued Comment on above: TAKE 2 CAPSULES BY M OUTH EVERY 6 HOURS lisinopril 20 mg oral tablet (10 sources) Angiotensin Converting Enzyme Inhibitor Start: 07-04-2017 End: 03-23-2022 take 10 mg by mouth twice daily lisinopril (ZESTRIL, PRINIVIL) 20 mg tablet Take 10 mg by mouth twice daily. 0 07/04/2017 03/23/2022 Discontinued (Clinical Decision) Lisinopril Not-T aking Comment on above: Take 10 mg by mouth twice daily. Multivitamin (Daily Multi-Vitamin) tablet (6 sources) Start: 02-13-2024 End: 10-01-2024 take 1 tablet by mouth once daily Multivitamin (Daily Multi-Vitamin) tablet Discontinued 1 TAB PO Daily February 13, 2024 12:00am October 01, 2024 11:26am Start: 02-13-2024 End: 10-01-2024 take 1 tablet by mouth once daily Multivitamin (Daily Multi-Vitamin) tablet Discontinued 1 TAB PO Daily February 12, 2024 11:00pm October 01, 2024 10:26am Start: 02-13-2024 take 1 tablet by laz th once daily Multivitamin (Daily Multi-Vitamin) tablet Active 1 TAB PO Daily February 13, 2024 12:00am Urea (11 sources) Start: 02-23-2022 End: 05-23-2022 urea (URE-NA) 15 gram oral p owder Indications: Hyponatremia Take 15 g by mouth once daily. 90 Packet 5 02/23/2022 05/23/2022 Discontinued (Discontinued by another Health Care Provider) Start: 02-23-2022 urea (URE-NA) 15 gram oral powder Indications: Hyponatremia Take 15 g by mouth once daily. 90 Packet 5 02/23/2022 Active Comment on above: Take 15 g by mouth o nce daily. vitamin b12 1 mg/ml injectable solution (2 sources) Vitamin B12 Start: 09-01-2024 End: 09-01-2024 inject 1 dose by intramuscular injection once 1,000 mcg, INTRAMUSCULAR, ONCE, 1 dose, On Sun09/01/24 at 1230 Start: 08-05-2024 End: 08-05-2024 inject 1 dose by intramuscular injection once 1,000 mcg, INTRAMUSCULAR, ONCE, 1 dose, On Sun08/05/24 at 1030 zinc sulfate 220 mg oral tablet (20 sources) Start: 03-25-2024 End: 02-28-2025 take 1 tablet by mouth once Zinc Sulfate 50 mg zinc (220 mg) tablet Discontinued 50 MG PO Once March 25, 2024 1:56pm February 28, 2025 10:42am Start: 02-13-2024 End: 03-25-2024 take 1 tablet by mouth twice daily Zinc Sulfate 50 mg zinc (220 mg) tablet Discontinued 50 MG PO Twice daily February 13, 2024 12:00am March 25, 2024 1:57pm zinc sulfate (ZI NC-15 ORAL) Active Zinc Sulfate 220 (50 Zn) MG as directed Orally Active zinc sulfate (ZI NC-15 ORAL) Problems Active Problems Problem Classification Problem Date Documented Da te Episodic/Chronic Acute and unspecified renal failure (1 source) Acute injury of kidney; Translations: [Acute kidney failure, unspecified] Episodic Allergic reactions (4 sources) Inflammatory dermatosis; Translations: [Dermatitis, unspecified] Onset: 10-09-2024 10-09-2024 Episodic Aortic; peripheral; and visceral artery aneurysms (11 sources) Thoracic aortic aneurysm without rupture; Translations: [Thoracic aortic aneurysm without rupture] Onset: 02-26-2024 02-26-2024 Chronic Calculus of urinary tract (8 sources) Kidney stone; Translations: [Calculus of kidney] 02-13-2024 Episodic Cancer of colon (20 sources) Malignant tumor of colon; Translations: [Malignant neoplasm of colon, unspecified] Onset: 10-28-2013 Chronic Chronic kidney disease (20 sources) Chronic kidney disease, unspecified; Translations: [Chronic kidney disease stage 3A ] Onset: 11-30-2020 Resolved: 02-26-2024 Chronic Chronic kidney disease (2 sources) Chronic kidney disease; Translations: [Chronic kidney disease (CKD) stage G3b/A1, moderately decreased glomerular filtration rate (GFR) between 30-44 mL/min/1.73 square meter and albuminuria creatinine ratio less than 30 mg/g (HCC)] Onset: 09-25-2024 Chronic obstructive pulmonary disease and bronchiectasis (1 source) Bronchitis, not specified as acute or chronic Episodic Deficiency and other anemia (17 sources) Anemia; Translations: [Anemia in stage 3b chronic kidney disease] Onset: 02-23-2022 Resolved: 07-04-2022 02-23-2022 Chronic Deficiency and other anemia (20 sources) Anemia; Translations: [Anemia, unspecified] Onset: 07-22-2014 Resolved: 07-15-2024 Episodic Deficiency and other anemia (3 sources) Nutritional anemia; Translations: [Other vitamin B12 deficiency anemias] Episodic Deficiency and other anemia (7 sources) Megaloblastic anemia due to vitamin B>12< deficiency; Translations: [Other megaloblastic anemias, not elsewhere classified] Onset: 07-31-2024 07-31-2024 Episodic Diseases of mouth; excluding dental (12 sources) Sialolithiasis; Translations: [Sialolithiasis] Onset: 07-22-2023 Resolved: 07-15-2024 Episodic Disorders of lipid metabolism (9 sources) Pure hypercholesterolemia ; Translations: [Pure hypercholesterolemia , unspecified] Onset: 01-28-2013 07-22-2023 Chronic Essential hypertension (20 sources) Essential hypertension; Translations: [Essential (primary) hypertension] Onset: 01-28-2013 02-23-2022 Chronic Fluid and electrolyte disorders (20 sources) Hyponatremia; Translations: [Hypo-osmolality and hyponatremia] Onset: 02-24-2022 Resolved: 02-26-2024 02-24-2022 Episodic Hypertension with complications and secondary hypertension (13 sources) Hypertensive renal disease; Translations: [Hypertensive chronic kidney disease with stage 1 through stage 4 chronic kidney disease, or unspecified chronic kidney disease] Onset: 09-25-2024 Chronic Immunizations and screening for infectious disease (4 sources) Encounter for immunization; Translations: [ENCOUNTER FOR IMMUNIZATION] Onset: 08-02-2021 Episodic Other endocrine disorders (20 sources) Hyperparathyroidism; Translations: [Hyperparathyroidism , unspecified] Onset: 05-23-2022 Chronic Other endocrine disorders (1 source) Primary hyperparathyroidism; Translations: [Primary hyperparathyroidism] Onset: 07-31-2023 Chronic Other gastrointestinal disorders (1 source) Functional diarrhea; Translations: [Functional diarrhea] Episodic Other nutritional; endocrine; and metabolic disorders (20 sources) Hypercalcemia; Translations: [Hypercalcemia] Onset: 04-22-2022 Chronic Other nutritional; endocrine; and metabolic disorders (4 sources) Hypercalcemia; Translations: [Hypercalcemia] Onset: 01-13-2022 Chronic Other nutritional; endocrine; and metabolic disorders (7 sources) Obesity caused by energy imbalance; Translations: [Class 1 obesity due to excess calories with serious comorbidity and body mass index (BMI) of 31.0 to 31.9 in adult] Onset: 07-15-2024 07-15-2024 Chronic Other nutritional; endocrine; and metabolic disorders (2 sources) Hypomagnesemia; Translations: [Hypomagnesemia] 10-01-2024 Chronic Other nutritional; endocrine; and metabolic disorders (1 source) Hypomagnesemia; Translations: [Disorders of magnesium metabolism] 10-01-2024 Chronic Other nutritional; endocrine; and metabolic disorders (4 sources) Hyperuricemia without signs of inflammatory arthritis and tophaceous disease; Translations: [Other abnormal blood chemistry] Onset: 09-25-2024 Episodic Other nutritional; endocrine; and metabolic disorders (4 sources) Hyperuricemia; Translations: [Hyperuricemia without signs of inflammatory arthritis and tophaceous disease] 03-23-2024 Episodic Other upper respiratory infections (1 source) Acute sinusitis, unspecified Episodic Skin and subcutaneous tissue infections (16 sources) Cellulitis of scalp; Translations: [Cellulitis of head [any part, except face]] Onset: 02-26-2024 Resolved: 07-15-2024 02-13-2024 Episodic Spondylosis; intervertebral disc disorders; other back problems (9 sources) Degeneration of cervical intervertebral disc; Translations: [Other cervical disc degeneration, unspecified cervical region] Onset: 02-26-2024 02-26-2024 Chronic Spondylosis; intervertebral disc disorders; other back problems (1 source) Neck pain; Translations: [Cervicalgia] 07-19-2022 Episodic Unclassified (7 sources) Drug therapy finding; Translations: [DVT prophylaxis] Onset: 07-16-2014 Past or Other Problems Problem Classification Problem Date Documented Da te Episodic/Chronic Cancer of colon (13 sources) Personal history of other malignant neoplasm of large intestine; Translations: [History of malignant neoplasm of colon] Onset: Episodic Cancer of other GI organs; peritoneum (1 source) Personal history of malignant neoplasm of unspecified digestive organ; Translations: [PERS HX MALIG KISHA UNS DIGESTV ORGN] Onset: 1 Episodic Cancer of rectum and anus (20 sources) Malignant tumor of rectum; Translations: [Malignant neoplasm of rectum] Onset: 3 Resolved: 4 12-15-2020 Chronic Deficiency and other anemia (4 sources) Anemia, unspecified; Translations: [Anemia, unspecified] Onset: 1 Episodic Deficiency and other anemia (1 source) Iron deficiency anemia, unspecified; Translations: [Iron deficiency anemia, unspecified iron deficiency anemia type] Onset: 1 Episodic Disorders of teeth and jaw (4 sources) Jaw pain; Translations: [Right temporomandibular joint disorder, unspecified] Onset: 1 Episodic Genitourinary congenital anomalies (17 sources) Multiple congenital cysts of kidney; Translations: [Cystic kidney disease, unspecified] Onset: 2 Resolved: 2 02-23-2022 Chronic Intestinal obstruction without hernia (20 sources) Stricture of colon; Translations: [Other intestinal obstruction unspecified as to partial versus complete obstruction] Onset: 3 Resolved: 4 08-26-2013 Episodic Other aftercare (1 source) 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; Translations: [OTH CHECK PROCESSOR CURRENT DRUG THERAPY] Onset: 1 Episodic Other aftercare (19 sources) Drug therapy finding; Translations: [Other custodial (current) drug therapy] Onset: 4 08-05-2023 Episodic Other bone disease and musculoskeletal deformities (20 sources) Osteopenia; Translations: [Other specified disorders of bone density and structure, multiple sites] Onset: 2 08-29-2022 Episodic Other circulatory disease (20 sources) Low blood pressure; Translations: [Hypotension, unspecified] Onset: 4 Resolved: 4 02-26-2024 Episodic Other diseases of kidney and ureters (20 sources) Hydronephrosis; Translations: [Unspecified hydronephrosis] Onset: 4 Episodic Other diseases of kidney and ureters (20 sources) Cyst of kidney; Translations: [Cyst of kidney, acquired] Onset: 2 02-23-2022 Episodic Other gastrointestinal disorders (20 sources) Ileostomy present; Translations: [Encounter for attention to ileostomy] Onset: 5 Resolved: 3 01-26-2015 Chronic Other gastrointestinal disorders (20 sources) Ascites; Translations: [Other ascites] Onset: 1 Resolved: 4 12-15-2020 Episodic Other lower respiratory disease (20 sources) Multiple nodules of lung; Translations: [Other nonspecific abnormal finding of lung field] Onset: 1 12-15-2020 Episodic Other nervous system disorders (1 source) Atypical facial pain; Translations: [ATYPICAL FACIAL PAIN] Onset: 1 Episodic Other nervous system disorders (20 sources) Postoperative pain ; Translations: [Other acute postprocedural pain] Onset: 4 Resolved: 3 08-06-2023 Episodic Otitis media and related conditions (9 sources) Acute suppurative otitis media with spontaneous rupture of ear drum; Translations: [Acute suppurative otitis media with spontaneous rupture of ear drum, left ear] Onset: 3 Resolved: 4 02-26-2024 Episodic Residual codes; unclassified (20 sources) Patient encounter status; Translations: [Encounter for prophylactic measures, unspecified] Onset: 4 Episodic Residual codes; unclassified (9 sources) Bilateral lower limb edema; Translations: [Localized edema] Onset: 4 02-26-2024 Episodic Thyroid disorders (20 sources) Goiter; Translations: [Nontoxic goiter, 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 Sufficiency/Optimal Levels: 31-80 ng/mL Toxicity: > 100 ng/mL. Test performed by chemiluminescent immunoassay. Performed By: #### 1 989-3 #### [facility] [place] [id number] [address] [place] [address] [place] CBC panel Auto (Bld)on 09-25 Erythrocyte distribution width (RBC) [Ratio] 13.3 % Normal 11.5-15.0 [facility] Comment on above: Order Comment: Speci men Type: URINE SPECIMEN Ordering Facility: [facility] Nephrology Address: [facility] access [facility] [place] [id number] Performed By: #### 2 4356-8 #### [facility] [place] [id number] [address] [place] [address] [place] Hematocrit (Bld) [Volume fraction] 35.5 % Low 36.0-46.0 [facility] Comment on above: Order Comment: Speci men Type: URINE SPECIMEN Ordering Facility: [facility] Nephrology Address: Critical [place] [address] Performed By: #### 2 4356-8 #### [facility] [place] [id number] [address] [place] [address] [place] Hemoglobin (Bld) [Mass/Vol] 11.9 g/dL Normal 11.5-15.5 [facility] Comment on above: Order Comment: Speci men Type: URINE SPECIMEN Ordering Facility: [facility] Nephrology Address: Critical [place] [address] Performed By: #### 2 4356-8 #### [facility] IA [id number] [address] [place] [address] [place] MCH (RBC) [Entitic mass] 30.9 pg Normal 26.0-34.0 [facility] Comment on above: Order Comment: Speci men Type: URINE SPECIMEN Ordering Facility: [facility] Nephrology Address: Critical [place] [address] Performed By: #### 2 4356-8 #### [facility] CLIA [id number] [address] [place] [address] [place] MCHC (RBC) [Mass/Vol] 33.5 g/dL Normal 30.5-36.0 [facility] Comment on above: Order Comment: Speci men Type: URINE SPECIMEN Ordering Facility: [facility] Nephrology Address: Critical access [place] [address] Performed By: #### 2 4356-8 #### [facility] CLIA [id number] [address] [place] [address] [place] MCV (RBC) [Entitic vol] 92.2 fL Normal 80.0-100.0 [facility] Comment on above: Order Comment: Speci men Type: URINE SPECIMEN Ordering Facility: [facility] Nephrology Address: Critical access [place] [address] Performed By: #### 2 4356-8 #### [facility] CLIA [id number] [address] [place] [address] [place] Nucleated RBC (Bld) [#/Vol] 10*3/uL Normal <0.01 [facility] Comment on above: Order Comment: Speci men Type: URINE SPECIMEN Ordering Facility: [facility] Nephrology Address: Critical access [place] [address] Performed By: #### 2 4356-8 #### [facility] CLIA [id number] [address] [place] [address] [place] Platelet mean volume (Bld) [Entitic vol] 10.1 fL Normal 9.0-12.7 [facility] Comment on above: Order Comment: Speci men Type: URINE SPECIMEN Ordering Facility: [facility] Nephrology Address: Critical access [place] [address] Performed By: #### 2 4356-8 #### [facility] CLIA [id number] [address] [place] [address] [place] Platelets (Bld) [#/Vol] 319 10*3/uL Normal 150-400 [facility] Comment on above: Order Comment: Speci men Type: URINE SPECIMEN Ordering Facility: [facility] Nephrology Address: [address] [place] [address] Performed By: #### 2 4356-8 #### [facility] CLIA [id number] [address] [place] [address] [place] RBC (Bld) [#/Vol] 3.85 10*6/uL Low 3.90-5.20 [facility] Comment on above: Order Comment: Speci men Type: URINE SPECIMEN Ordering Facility: [facility] Nephrology Address: [address] [place] [address] Performed By: #### 2 4356-8 #### [facility] CLIA [id number] [address] [place] [address] [place] WBC (Bld) [#/Vol] 8.89 10*3/uL Normal 3.70-11.00 [facility] Comment on above: Order Comment: Speci men Type: URINE SPECIMEN Ordering Facility: [facility] Nephrology Address: [address] [place] [address] Performed By: #### 2 4356-8 #### [facility] CLIA [id number] [address] [place] [address] [place] [facility] CBC PNL BLD AUTOon 09-25 [facility] NRBC # BLD AUTO <0.01 [facility] PLATELET # BLD AUTO 319 [facility] PMV BLD AUTO 10.1 fL 9.0 - 12.7 fL [facility] WBC # BLD AUTO 8.89 [facility] Erythrocyte distribution width (RBC) [Ratio] 13.3 % 11.5 - 15.0 % [facility] Hematocrit (Bld) [Volume fraction] 35.5 % Low 36.0 - 46.0 % [facility] Hemoglobin (Bld) [Mass/Vol] 11.9 g/dL 11.5 - 15.5 g/dL [facility] Interpretation and review of laboratory results Abnormal [facility] MCH (RBC) [Entitic mass] 30.9 pg 26.0 - 34.0 pg [facility] MCHC (RBC) [Mass/Vol] 33.5 g/dL 30.5 - 36.0 g/dL [facility] MCV (RBC) [Entitic vol] 92.2 fL 80.0 - 100.0 fL [facility] RBC (Bld) [#/Vol] 3.85 10*6/uL Low 3.90 - 5.2 0 m/uL [facility] Specimen Type: BLOOD SPECIMEN Ordering Facility: [facility] Nephrology Address: Critical access hospital [address], [place] [address] Original Ordering Provider: OLAF LIMA [facility] Erythrocyte distribution wid th Auto (RBC) [Ratio]on 09-25-2024 Erythrocyte distribution width (RBC) [Ratio] Erythrocyte distribution width [Ratio] by Automated count 11.5-15.0 [facility] Hematocrit Auto (Bld) [Volum e fraction]on 09-25-2024 Hematocrit (Bld) [Volume fraction] Hematocrit [Volume Fraction] of Blood by Automated count Low 36.0-46.0 [facility] Hemoglobin [Mass/volume] in Bloodon 09-25-2024 Hemoglobin (Bld) [Mass/Vol] Hemoglobin [Mass/volume] in Blood 11.5-15.5 [facility] Laboratory - Chemistry and C hemistry - challengeon 09-25-2024 Bilirubin Ql (U) Negative Negative [facility] Glucose (U) [Mass/Vol] Negative Negative [facility] Ketones Ql (U) Negative Negative [facility] pH (U) 6.0 [pH] <8.5 [facility] Specific gravity (U) [Rel density] 1.007 1.005-1.030 [facility] Albumin [Mass/Vol] 4.6 g/dL 3.9-4.9 [facility] Calcium [Mass/Vol] 11.2 mg/dL High 8.5-10.2 [facility] Chloride [Moles/Vol] 98 mmol/L 98-107 [facility] CO2 [Moles/Vol] 23 mmol/L 22-30 [facility] Creatinine [Mass/Vol] 1.25 mg/dL High 0.58-0.96 [facility] Glucose [Mass/Vol] 93 mg/dL 74-99 [facility] Comment on above: The [place] Diabete s Association (ADA) provides guidance for cutoff values for fasting glucose and random glucose. The ADA defines fasting as no caloric intake for at least 8 hours. Fasting plasma glucose results between 100 to 125 mg/dL indicate increased risk for diabetes (prediabetes).Fasting plasma glucose results greater than or equal to 126 mg/dL meet the criteria for diagnosis of diabetes. In the absence of unequivocal hyperglycemia, results should be confirmed by repeat testing. In a patient with classic symptoms of hyperglycemia or hyperglycemic crisis, random plasma glucose results greater than or equal to 200 mg/dL meet the criteria for diagnosis of diabetes.Reference: Standards of Medical Care in Diabetes 2016, [place] [employer]. Diabetes Care. 2016.39(Suppl 1). Magnesium [Mass/Vol] 1.9 mg/dL 1.7-2.3 [facility] Potassium [Moles/Vol] 4.2 mmol/L 3.7-5.1 [facility] Sodium [Moles/Vol] 133 mmol/L Low 136-144 [facility] Urate [Mass/Vol] 9.2 mg/dL High 2.5-6.6 [facility] Urea nitrogen [Mass/Vol] 32 mg/dL High 7-21 [facility] - Specimen inform ationon 09-25-2024 Appearance (U) Clear Clear [facility] Color (U) Yellow Yellow [facility] - Urinalysison Bacteria LM.HPF (Urine sed) [#/Area] Negative Negative [facility] Hyaline casts LM Ql (Urine sed) 0 /LPF 0 /LPF [facility] Leukocyte esterase Test strip Ql (U) Negative Negative [facility] Nitrite Ql (U) Negative Negative [facility] Protein (U) [Mass/Vol] 11 mg/dL 0-20 [facility] Protein Ql (U) Negative Negative [facility] Leukocytes [#/volume] correc gail for nucleated erythrocytes in Blood by Automated counon 09-25-2024 WBC corrected for nucl RBC Auto (Bld) [#/Vol] Leukocytes [#/volume] corrected for nucleated erythrocytes in Blood by Automated coun 3.70-11.00 [facility] MCH Auto (RBC) [Entitic mass ]on 09-25-2024 MCH (RBC) [Entitic mass] MCH [Entitic mass] by Automated count 26.0-34.0 [facility] MCHC Auto (RBC) [Mass/Vol]on 09-25-2024 MCHC (RBC) [Mass/Vol] MCHC [Mass/volume] by Automated count 30.5-36.0 [facility] MCV Auto (RBC) [Entitic vol] on 09-25-2024 MCV (RBC) [Entitic vol] MCV [Entitic volume] by Automated count 80.0-100.0 [facility] Magnesium SerPl-mCncon 09-25 Magnesium [Mass/Vol] 1.9 mg/dL Normal 1.7-2.3 [facility] Comment on above: Order Comment: Speci men Type: BLOOD SPECIMEN Ordering Facility: [facility] Nephrology Address: [address] [place], [place] [address] [address] Performed By: #### 1 989-3 #### [facility] CLIA [id number] [address] [place] [address] [place] No Panel Informationon 09-25 Urine Occult Blood Negative Negative [facility] Urine RBC 0-2 /HPF 0-2 /HPF [facility] Urine Squamous Epithelial Cells None Seen [HPF] [facility] Urine Urobilinogen 0.2 EU/dL 0.2-1.0 EU/dL [facility] Urine WBC 0-5 /HPF 0-5 /HPF [facility] Estimated GFR (CKD-EPI) 44 mL/min/1.73m??? Low >=60 [facility] Comment on above: Estimated Glomerular Filtration Rate (eGFR) is calculated using the 2020 CKD-EPI creatinine equation. This equation utilizes serum creatinine, sex, and age as parameters. The creatinine assay has traceable calibration to isotope dilution-mass spectrometry. Refer to KDIGO guidelines for clinical interpretation. In patients with unstable renal function, e.g. those with acute kidney injury, the eGFR may not accurately reflect actual GFR. Parathyroid Hormone (Intact) 84 pg/mL High [facility] Phosphorus Level 3.6 mg/dL 2.7-4.8 [facility] Nucleated RBC Auto (Bld) [#/ Vol]on 09-25-2024 Nucleated RBC (Bld) [#/Vol] Nucleated erythrocytes [#/volume] in Blood by Automated count <0.01 [facility] PTH-Intact SerPl-mCncon Parathyrin.intact [Mass/Vol] 84 pg/mL High [facility] Comment on above: Order Comment: Speci men Type: URINE SPECIMEN Ordering Facility: [facility] Nephrology Address: Critical access [place] [address] Performed By: #### 2 4356-8 #### [facility] CLIA [id number] [address] [place] [address] [place] Platelet mean volume Auto (B ld) [Entitic vol]on 09-25-2024 Platelet mean volume (Bld) [Entitic vol] Platelet mean volume [Entitic volume] in Blood by Automated count 9.0-12.7 [facility] Platelets Auto (Bld) [#/Vol] on 09-25-2024 Platelets (Bld) [#/Vol] Platelets [#/volume] in Blood by Automated count 150-400 [facility] Prot Ur-mCncon 09-25-2024 Protein (U) [Mass/Vol] 11 mg/dL Normal 0-20 [facility] Comment on above: Order Comment: Speci men Type: URINE SPECIMEN Ordering Facility: [facility] Nephrology Address: Critical access [place] [address] Performed By: #### 2 888-6 #### [facility] CLIA [id number] [address] [id number] [address] [place] RBC Auto (Bld) [#/Vol]on RBC (Bld) [#/Vol] Erythrocytes [#/volume] in Blood by Automated count Low 3.90-5.20 [facility] Renal function 2000 panelon 09-25-2024 Albumin [Mass/Vol] 4.6 g/dL Normal 3.9-4.9 [facility] Comment on above: Order Comment: Speci men Type: BLOOD SPECIMEN Ordering Facility: [facility] [place] [address] Performed By: #### 1 989-3 #### [facility] CLIA [id number] [address] [place] [address] [place] Anion gap [Moles/Vol] 12 mmol/L Normal 8-15 [facility] Comment on above: Order Comment: Speci men Type: BLOOD SPECIMEN Ordering Facility: [facility]phrology [facility] [place] [address] Performed By: #### 1 989-3 #### [facility] CLIA [id number] [address] [place] [address] [place] Calcium [Mass/Vol] 11.2 mg/dL High 8.5-10.2 [facility] Comment on above: Order Comment: Speci men Type: BLOOD SPECIMEN Ordering Facility: [facility] Nephrology Address: [place] [address] Performed By: #### 1 989-3 #### [facility] CLIA [id number] [address] [place] [id number] [place] Chloride [Moles/Vol] 98 mmol/L Normal 98-107 [facility] Comment on above: Order Comment: Speci men Type: BLOOD SPECIMEN Ordering Facility: [facility] Nephrology Address: [place] [address] Performed By: #### 1 989-3 #### [facility] CLIA [id number] [address] [place] [address] [place] CO2 [Moles/Vol] 23 mmol/L Normal 22-30 [facility] Comment on above: Order Comment: John joseph Type: BLOOD SPECIMEN Ordering Facility: [facility] Nephrology Address: Critical [place] [address] Performed By: #### 1 989-3 #### [facility] CLIA [id number] [address] [place] [address] [place] Creatinine [Mass/Vol] 1.25 mg/dL High 0.58-0.96 [facility] Comment on above: Order Comment: Camillei opal Type: BLOOD SPECIMEN Ordering Facility: [facility] Nephrology Address: [address] [place], [place] [address] [address] Performed By: #### 1 989-3 #### [facility] CLIA [id number] [address] [place] [address] [place] Creatinine and Glomerular filtration rate.predicted panel (S/P/Bld) 44 mL/min/1.73m??? Low >=60 [facility] Comment on above: Order Comment: John joseph Type: BLOOD SPECIMEN Ordering Facility: [facility] Nephrology Address: [address] [place], [place] [address] [address] Result Comment: Regina mated Glomerular Filtration Rate (eGFR) is calculated using the 2020 CKD-EPI creatinine equation. This equation utilizes serum creatinine, sex, and age as parameters. The creatinine assay has traceable calibration to isotope dilution-mass spectrometry. Refer to KDIGO guidelines for clinical interpretation. In patients with unstable renal function, e.g. those with acute kidney injury, the eGFR may not accurately reflect actual GFR. Performed By: #### 1 989-3 #### [facility] CLIA [id number] [address] [place] [address] [place] Glucose [Mass/Vol] 93 mg/dL Normal 74-99 [facility] Comment on above: Order Comment: John joseph Type: BLOOD SPECIMEN Ordering Facility: [facility] Nephrology Address: [address] [place] [address] Result Comment: The [place] Diabetes Association (ADA) provides guidance for cutoff [...] Standards of Medical Care in Diabetes 2016, [place] [employer]. Diabetes Care. 2016.39(Suppl 1). Performed By: #### 1 989-3 #### [facility] CLIA [id number] [address] [place] [address] [place] Phosphate [Mass/Vol] 3.6 mg/dL Normal 2.7-4.8 [facility] Comment on above: Order Comment: Speci men Type: BLOOD SPECIMEN Ordering Facility: [facility] Nephrology Address: [address] [place] [address] Performed By: #### 1 989-3 #### [facility] CLIA [id number] [address] [place] [address] [place] Potassium [Moles/Vol] 4.2 mmol/L Normal 3.7-5.1 [facility] Comment on above: Order Comment: Speci men Type: BLOOD SPECIMEN Ordering Facility: [facility] Nephrology Address: [address] [place] [address] Performed By: #### 1 989-3 #### [facility] CLIA [id number] [address] [place], [place] [id number] [place] Sodium [Moles/Vol] 133 mmol/L Low 136-144 [facility] Comment on above: Order Comment: Speci men Type: BLOOD SPECIMEN Ordering Facility: [facility] Nephrology Address: [address] [place] [address] Performed By: #### 1 989-3 #### [facility] IA [id number] [address] [place] [address] [place] Urea nitrogen [Mass/Vol] 32 mg/dL High 7-21 [facility] Comment on above: Order Comment: Speci men Type: BLOOD SPECIMEN Ordering Facility: [facility]phrology [facility] [place] [address] Performed By: #### 1 989-3 #### [facility] CLIA [id number] [address] [place] [address] [place] Serum or plasma anion gap de terminationon 09-25-2024 Anion gap [Moles/Vol] Serum or plasma an ion gap determination 8-15 [facility] Serum or plasma calcidiol me asurement (mass/volume)on 09-25-2024 25-hydroxyvitamin D3 [Mass/Vol] Serum or plasma calcidiol measurement (mass/volume) 31.0-80.0 [facility] Comment on above: Classification of 25 [place] Vitamin D status: Deficiency/Insufficiency: < or = 30 ng/ml.Sufficiency/Optimal Levels: 31-80 ng/mLToxicity: > 100 ng/mL. Test performed by chemiluminescent immunoassay. Urate SerPl-mCncon Urate [Mass/Vol] 9.2 mg/dL High 2.5-6.6 [facility] Comment on above: Order Comment: Speci men Type: BLOOD SPECIMEN Ordering Facility: [facility] Nephrology Address: [place] [address] Performed By: #### 1 989-3 #### [facility] IA [id number] [address] [place], [place] [id number] [place] Urinalysis complete panel (U )on 09-25-2024 Bacteria LM.HPF (Urine sed) [#/Area] Negative Normal Negative [facility] Comment on above: Order Comment: Speci men Type: URINE SPECIMEN Ordering Facility: [facility] Nephrology Address: [address] [facility], [place] [address] Performed By: #### 2 4356-8 #### [facility] CLIA [id number] [address] [place] [address] [place] Bilirubin Ql (U) Negative Normal Negative [facility] Comment on above: Order Comment: Speci men Type: URINE SPECIMEN Ordering Facility: [facility] Nephrology Address: Critical access hospital [address] [facility], [place] [id number] Performed By: #### 2 4356-8 #### [facility] CLIA [id number] [address] [place] [address] [place] Clarity (Unsp spec) Clear Normal Clear [facility] Comment on above: Order Comment: Speci men Type: URINE SPECIMEN Ordering Facility: [facility] Nephrology Address: Critical access [place] [address] Performed By: #### 2 4356-8 #### [facility] CLIA [id number] [address] [place] [address] [place] Color (U) Yellow Normal Yellow [facility] Comment on above: Order Comment: Speci men Type: URINE SPECIMEN Ordering Facility: [facility] Nephrology Address: [address] [place] [id number] Performed By: #### 2 4356-8 #### [facility] CLIA [id number] [address] [place] [address] [place] Epithelial cells LM.HPF (Urine sed) [#/Area] None Seen Normal [facility] Comment on above: Order Comment: Speci men Type: URINE SPECIMEN Ordering Facility: [facility]phrology [facility] [place] [id number] Performed By: #### 2 4356-8 #### [facility] CLIA [id number] [address] [place] [address] [place] Glucose Test strip (U) [Mass/Vol] Negative Normal Negative [facility] Comment on above: Order Comment: Speci men Type: URINE SPECIMEN Ordering Facility: [facility] Nephrology Address: [place] [address] Performed By: #### 2 4356-8 #### [facility] CLIA [id number] [address] [place] [address] [place] Hemoglobin Ql (U) Negative Normal Negative [facility] Comment on above: Order Comment: Speci men Type: URINE SPECIMEN Ordering Facility: [facility]phrology [facility] [place] [id number] Performed By: #### 2 4356-8 #### [facility] CLIA [id number] [address] [place] [address] [place] Hyaline casts (Urine sed) [#/Area] 0 /[LPF] Normal 0 /LPF [facility] Comment on above: Order Comment: Speci men Type: URINE SPECIMEN Ordering Facility: [facility]phrology [facility] [place] [id number] Performed By: #### 2 4356-8 #### [facility] CLIA [id number] [address] [place] [address] [place] Ketones Ql (U) Negative Normal Negative [facility] Comment on above: Order Comment: Speci men Type: URINE SPECIMEN [facility] [facility]ph[facility] [place] [id number] Performed By: #### 2 4356-8 #### [facility] CLIA [id number] [address] [place] [address] [place] Leukocyte esterase Test strip Ql (U) Negative Normal Negative [facility] Comment on above: Order Comment: Speci men Type: URINE SPECIMEN Ordering Facility: [facility]phrology [facility] [place] [id number] Performed By: #### 2 4356-8 #### [facility] CLIA [id number] [address] [place] [address] [place] Nitrite Ql (U) Negative Normal Negative [facility] Comment on above: Order Comment: Speci men Type: URINE SPECIMEN Ordering Facility: [facility] Nephrology Address: [facility] [place] [address] Performed By: #### 2 4356-8 #### [facility] CLIA [id number] [address] [place] [address] [place] pH (U) 6.0 [pH] Normal <8.5 [facility] Comment on above: Order Comment: Speci men Type: URINE SPECIMEN Ordering Facility: [facility] Nephrology Address: [facility] [place] [address] Performed By: #### 2 4356-8 #### [facility] CLIA [id number] [address] [place] [address] [place] Protein (U) [Mass/Vol] Negative Normal Negative [facility] Comment on above: Order Comment: Speci men Type: URINE SPECIMEN Ordering Facility: [facility] Nephrology [facility] [place] [address] Performed By: #### 2 4356-8 #### [facility] IA [id number] [address] [place] [address] [place] RBC LM.HPF (Urine sed) [#/Area] 0-2 /HPF Normal 0-2 /HPF [facility] Comment on above: Order Comment: Speci men Type: URINE SPECIMEN Ordering Facility: [facility] Nephrology Address: Critical access [facility] [place] [address] Performed By: #### 2 4356-8 #### [facility] CLIA [id number] [address] [place] [address] [place] Specific gravity (U) [Rel density] 1.007 Normal 1.005-1.030 [facility] Comment on above: Order Comment: Speci men Type: URINE SPECIMEN Ordering Facility: [facility] Nephrology Address: [facility] [place] [id number] Performed By: #### 2 4356-8 #### [facility] IA [id number] [address] [place] [address] [place] Urobilinogen Ql (U) 0.2 EU/dL Normal 0.2-1.0 EU/dL [facility] Comment on above: Order Comment: Speci men Type: URINE SPECIMEN Ordering Facility: [facility] Nephrology Address: [facility] [place] [id number] Performed By: #### 2 4356-8 #### [facility] CLIA [id number] [address] [place] [address] [place] WBC LM.HPF (Urine sed) [#/Area] 0-5 /HPF Normal 0-5 /HPF [facility] Comment on above: Order Comment: Speci men Type: URINE SPECIMEN Ordering Facility: [facility] Nephrology Address: [facility] [place] [id number] Performed By: #### 2 4356-8 #### [facility] IA [id number] [address] [place] [address] [place] CNNURSEon 09-01-2024 CNNURSE Nurse Visit (HEMASA) ALEKSANDER BARGER ([id number]) 1945 F Date Time Provider Department 09/01/24 11:00 AM [place] NURSE SEBASTIAN CASTANO During your visit today, we recorded the following information about you: Temperature Pulse Respiration Blood pressure 97.6 degrees 75/minute 18/minute 168/74 Kamilah Yip MA 09/01/2024 12:22 PM Signed Patient Identification confirmed: yes. Injection given and documented on NOV per provider order. 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 - Cholecalciferol, Vitamin D3, 50 mcg (2,000 unit) cap - Magnesium 250 mg tab - zinc sulfate (ZINC-15 ORAL) - MEDICATION, NON-DATABASE Take 1 capsule by mouth once daily. RESTORE (EYE PROMISE) - Multivitamin capsule Take 1 capsule by mouth once daily. - aspirin, enteric coated (ASPIRIN, ENTERIC COATED) 81 mg EC tablet Take 81 mg by mouth once daily. 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] 08/26/2013 Colon cancer [C18.9] 10/28/2013 Hypotension [I95.9] 07/16/2014 Post-op pain [G89.18] 07/16/2014 DVT prophylaxis [[id number]] 07/16/2014 Hydronephrosis of left kidney [N13.30] 07/20/2014 Anemia [D64.9] 07/22/2014 Ileostomy care (HCC) [Z43.2] 01/26/2015 Other ascites [R18.8] 12/15/2020 Lung nodules [R91.8] 12/15/2020 Hypercalcemia [E83.52] 01/13/2022 Stage 3a chronic kidney disease (HCC) [N18.31] 01/24/2022 Chronic renal failure, stage 3a (HCC) [N18.31] 02/23/2022 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 Injection given and documented on NOV per provider order. Kamilah Yip MA Prescriptions ordered this encounter Disp Refills Start End CYANOCOBALAMIN (VIT B-12) 1,000 MCG/* 09/01/2024 09/01/2024 Route: INTRAMUSCULA Encounter Status:Closed by KAMILAH YIP on 09/01/24 [facility] 08-05-2024 CNNURSE Nurse Visit (HEMASA) ALEKSANDER BARGER ([id number]) 1945 F Date Time Provider Department 08/05/24 10:00 AM [place] NURSE SEBASTIAN LAWANDA CASTANO During your visit today, we recorded the following information about you: Temperature Pulse Respiration Blood pressure 97.5 degrees 74/minute 16/minute 152/73 Loan Elise MA 08/05/2024 10:42 AM Signed Patient Identification confirmed: yes. Injection given and documented on NOV per provider order. 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 - Cholecalciferol, Vitamin D3, 50 mcg (2,000 unit) cap - Magnesium 250 mg tab - zinc sulfate (ZINC-15 ORAL) - MEDICATION, NON-DATABASE Take 1 capsule by mouth once daily. RESTORE (EYE PROMISE) - Multivitamin capsule Take 1 capsule by mouth once daily. - aspirin, enteric coated (ASPIRIN, ENTERIC COATED) 81 mg EC tablet Take 81 mg by mouth once daily. 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/23/2022 07/04/2022 Renal cyst [N28.1] 02/23/2022 Anemia in stage 3b chronic kidney disease (HCC)*02/23/2022 07/04/2022 Essential hypertension [I10] 02/23/2022 Hyponatremia [E87.1] 02/24/2022 Hyperparathyroidism (HCC) [E21.3] 05/23/2022 Goiter [E04.9] 05/23/2022 Osteopenia of multiple sites [M85.89] 08/29/2022 Megaloblastic anemia due to vitamin B12 deficie*07/31/2024 Prescriptions ordered this encounter Disp Refills Start End CYANOCOBALAMIN (VIT B-12) 1,000 MCG/* 08/05/2024 08/05/2024 Route: INTRAMUSCULA Encounter Status:Closed by LOAN ELISE on 08/05/24 Normal [facility] CBC W Auto Differential pane l (Bld)on 07-31-2024 Basophils (Bld) [#/Vol] 0.05 10*3/uL Normal <0.11 [facility] Comment on above: Order Comment: Speci men Type: URINE SPECIMEN Ordering Facility: [facility] Nephrology Address: [place] [address] Performed By: #### 2 4356-8 #### [facility] CLIA [id number] [address] [place] [address] [place] Basophils/100 WBC (Bld) 0.6 % Normal [facility] Comment on above: Order Comment: Speci men Type: URINE SPECIMEN Ordering Facility: [facility] Nephrology Address: [place] [id number] Performed By: #### 2 4356-8 #### [facility] CLIA [id number] [address] [place] [address] [place] Differential cell count method Nom (Bld) Auto Normal [facility] Comment on above: Order Comment: Speci men Type: URINE SPECIMEN Ordering Facility: [facility] Nephrology Address: [facility] [place] [address] Performed By: #### 2 4356-8 #### [facility] CLIA [id number] [address] [place] [address] [place] Eosinophils (Bld) [#/Vol] 0.35 10*3/uL Normal <0.46 [facility] Comment on above: Order Comment: Speci men Type: URINE SPECIMEN Ordering Facility: [facility] Nephrology Address: [place] [id number] Performed By: #### 2 4356-8 #### [facility] CLIA [id number] [address] [place] [id number] [place] Eosinophils/100 WBC (Bld) 4.2 % Normal [facility] Comment on above: Order Comment: Speci men Type: URINE SPECIMEN Ordering Facility: [facility] Nephrology Address: [place] [address] Performed By: #### 2 4356-8 #### [facility] CLIA [id number] [address] [place] [id number] [place] Erythrocyte distribution width (RBC) [Ratio] 12.8 % Normal 11.5-15.0 [facility] Comment on above: Order Comment: Speci men Type: URINE SPECIMEN Ordering Facility: [facility] Nephrology Address: [address] [place], [place] [address] [address] Performed By: #### 2 4356-8 #### [facility] CLIA [id number] [address] [place] [address] [place] Hematocrit (Bld) [Volume fraction] 33.7 % Low 36.0-46.0 [facility] Comment on above: Order Comment: Speci men Type: URINE SPECIMEN Ordering Facility: [facility] Nephrology Address: [address] [place], [place] [address] [address] Performed By: #### 2 4356-8 #### [facility] CLIA [id number] [address] [place] [address] [place] Hemoglobin (Bld) [Mass/Vol] 11.4 g/dL Low 11.5-15.5 [facility] Comment on above: Order Comment: Speci men Type: URINE SPECIMEN Ordering Facility: [facility] Nephrology Address: Critical access [place] [address] Performed By: #### 2 4356-8 #### [facility] CLIA [id number] [address] [place] [address] [place] Immature granulocytes (Bld) [#/Vol] 0.03 10*3/uL Normal <0.10 [facility] Comment on above: Order Comment: Speci men Type: URINE SPECIMEN Ordering Facility: [facility] Nephrology Address: [address] [place], [place] [address] [address] Performed By: #### 2 4356-8 #### [facility] CLIA [id number] [address] [place] [address] [place] Immature granulocytes/100 WBC (Bld) 0.4 % Normal [facility] Comment on above: Order Comment: Speci men Type: URINE SPECIMEN Ordering Facility: [facility] Nephrology Address[facility] [place] [address] Performed By: #### 2 4356-8 #### [facility] CLIA [id number] [address] [place] [address] [place] Lymphocytes (Bld) [#/Vol] 1.53 10*3/uL Normal 1.00-4.00 [facility] Comment on above: Order Comment: Speci men Type: URINE SPECIMEN Ordering Facility: [facility] Nephrology Address: [facility] [place] [address] Performed By: #### 2 4356-8 #### [facility] IA [id number] [address] [place] [address] [place] Lymphocytes/100 WBC (Bld) 18.3 % Normal [facility] Comment on above: Order Comment: Speci men Type: URINE SPECIMEN Ordering Facility: [facility] Nephrology Address: [facility] [place] [address] Performed By: #### 2 4356-8 #### [facility] IA [id number] [address] [place] [address] [place] MCH (RBC) [Entitic mass] 31.1 pg Normal 26.0-34.0 [facility] Comment on above: Order Comment: Speci men Type: URINE SPECIMEN Ordering Facility: [facility] Nephrology Address: [place] [address] Performed By: #### 2 4356-8 #### [facility] CLIA [id number] [address] [place] [address] [place] MCHC (RBC) [Mass/Vol] 33.8 g/dL Normal 30.5-36.0 [facility] Comment on above: Order Comment: Speci men Type: URINE SPECIMEN Ordering Facility: [facility] Nephrology Address: [facility] [place] [address] Performed By: #### 2 4356-8 #### [facility] CLIA [id number] [address] [place] [address] [place] MCV (RBC) [Entitic vol] 91.8 fL Normal 80.0-100.0 [facility] Comment on above: Order Comment: Speci men Type: URINE SPECIMEN Ordering Facility: [facility] Nephrology Address: [address] [place] [address] Performed By: #### 2 4356-8 #### [facility] CLIA [id number] [address] [place] [address] [place] Monocytes (Bld) [#/Vol] 0.70 10*3/uL Normal <0.87 [facility] Comment on above: Order Comment: Speci men Type: URINE SPECIMEN Ordering Facility: [facility] Nephrology Address: [address] [place] [address] Performed By: #### 2 4356-8 #### [facility] CLIA [id number] [address] [place] [address] [place] Monocytes/100 WBC (Bld) 8.4 % Normal [facility] Comment on above: Order Comment: Speci men Type: URINE SPECIMEN Ordering Facility: [facility] Nephrology Address: [address] [place] [address] Performed By: #### 2 4356-8 #### [facility] CLIA [id number] [address] [place] [address] [place] Neutrophils (Bld) [#/Vol] 5.71 10*3/uL Normal 1.45-7.50 [facility] Comment on above: Order Comment: Speci men Type: URINE SPECIMEN Ordering Facility: [facility] Nephrology Address: [address] [place] [address] Performed By: #### 2 4356-8 #### [facility] CLIA [id number] [address] [place] [address] [place] Neutrophils/100 WBC (Bld) 68.1 % Normal [facility] Comment on above: Order Comment: Speci men Type: URINE SPECIMEN Ordering Facility: [facility] Nephrology Address: [facility] [place] [id number] Performed By: #### 2 4356-8 #### [facility] CLIA [id number] [address] [place] [address] [place] Nucleated RBC (Bld) [#/Vol] 10*3/uL Normal <0.01 [facility] Comment on above: Order Comment: Speci men Type: URINE SPECIMEN Ordering Facility: [facility] Nephrology Address: [facility] [place] [address] Performed By: #### 2 4356-8 #### [facility] CLIA [id number] [address] [place] [address] [place] Nucleated RBC/100 WBC (Bld) [Ratio] 0.0 /100 WBC Normal [facility] Comment on above: Order Comment: Speci men Type: URINE SPECIMEN Ordering Facility: [facility] Nephrology Address: [facility] [place] [address] Performed By: #### 2 4356-8 #### [facility] CLIA [id number] [address] [place] [address] [place] Platelet mean volume (Bld) [Entitic vol] 10.1 fL Normal 9.0-12.7 [facility] Comment on above: Order Comment: Speci men Type: URINE SPECIMEN Ordering Facility: [facility] Nephrology Address: Critical access [facility] [place] [address] Performed By: #### 2 4356-8 #### [facility] CLIA [id number] [address] [place] [address] [place] Platelets (Bld) [#/Vol] 295 10*3/uL Normal 150-400 [facility] Comment on above: Order Comment: Speci men Type: URINE SPECIMEN Ordering Facility: [facility] Nephrology Address: Critical access [place] [address] Performed By: #### 2 4356-8 #### [facility] CLIA [id number] [address] [place] [address] [place] RBC (Bld) [#/Vol] 3.67 10*6/uL Low 3.90-5.20 [facility] Comment on above: Order Comment: Speci men Type: URINE SPECIMEN Ordering Facility: [facility] Nephrology Address: Critical access [place] [address] Performed By: #### 2 4356-8 #### [facility] CLIA [id number] [address] [place] [address] [place] WBC (Bld) [#/Vol] 8.37 10*3/uL Normal 3.70-11.00 [facility] Comment on above: Order Comment: Speci men Type: URINE SPECIMEN Ordering Facility: [facility] Nephrology Address: Critical access [place] [address] Performed By: #### 2 4356-8 #### [facility] CLIA [id number] [address] [place] [address] [place] [facility] CBC W AUTO DIFF BLDon Basophils/100 WBC (Bld) 0.6 % [facility] BASOPHILS # BLD AUTO 0.05 [facility] DIFFERENTIAL METHOD BLD Auto [facility] EOSINOPHIL # BLD AUTO 0.35 [facility] LYMPHOCYTES # BLD AUTO 1.53 [facility] MONOCYTES # BLD AUTO 0.7 [facility] NEUTROPHILS # BLD AUTO 5.71 [facility] NRBC # BLD AUTO <0.01 [facility] NRBC/100 WBC BLD-RTO 0 /100 WBC [facility] PLATELET # BLD AUTO 295 [facility] PMV BLD AUTO 10.1 fL 9.0 - 12.7 fL [facility] WBC # BLD AUTO 8.37 [facility] Eosinophils/100 WBC (Bld) 4.2 % [facility] Erythrocyte distribution width (RBC) [Ratio] 12.8 % 11.5 - 15.0 % [facility] Hematocrit (Bld) [Volume fraction] 33.7 % Low 36.0 - 46.0 % [facility] Hemoglobin (Bld) [Mass/Vol] 11.4 g/dL Low 11.5 - 15.5 g/dL [facility] IMM GRANULOCYTES # BLD AUTO 0.03 NINF [facility] IMM GRANULOCYTES/LEUK NFR BLD AUTO 0.4 % [facility] Interpretation and review of laboratory results Abnormal [facility] Lymphocytes/100 WBC (Bld) 18.3 % [facility] MCH (RBC) [Entitic mass] 31.1 pg 26.0 - 34.0 pg [facility] MCHC (RBC) [Mass/Vol] 33.8 g/dL 30.5 - 36.0 g/dL [facility] MCV (RBC) [Entitic vol] 91.8 fL 80.0 - 100.0 fL [facility] Monocytes/100 WBC (Bld) 8.4 % [facility] Neutrophils/100 WBC (Bld) 68.1 % [facility] RBC (Bld) [#/Vol] 3.67 10*6/uL Low 3.90 - 5.2 0 m/uL [facility] Specimen Type: BLOOD SPECIMEN Ordering Facility: [facility] Address: [address] [place] [address] Original Ordering Provider: ARNOL LIMA [facility] Carcinoembryonic Ag [Mass/Vol] 1.3 ng/mL Normal <=2.9 [facility] Comment on above: Order Comment: Speci men Type: BLOOD SPECIMEN Ordering Facility: [facility] Nephrology Address: [address] [place] [address] Result Comment: Carc inoembryonic antigen test is used as an aid in monitoring response to treatment or recurrence in patients with established colorectal, breast, lung, prostatic, pancreatic, and ovarian carcinomas. Clinical correlation is required. The Carcinoembryonic antigen test was performed using the [employer] Unicel DXI paramagnetic particle chemiluminescent immunoassay method. Results obtained with different assay methods or kits cannot be used interchangeably. Performed By: #### 1 989-3 #### [facility] CLIA [id number] [address] [place] [address] [place] CNOVSPon 07-31-2024 CNOVSP Visit (SP) Office (HEMASA) ALEKSANDER BARGER ([id number]) 1945 F Date Time Provider Department 07/31/24 9:40 AM ARNOL DAUGHERTY During your visit today, we recorded the following information about you: Temperature Pulse Respiration Blood pressure 97 degrees 81/minute 16/minute 157/76 Weight Height 75.6 kg 1.562 m rAnol Daugherty MD 07/31/2024 7:29 PM Signed NAME: Aleksander Barger CLINIC NO.: [id number] DATE OF SERVICE: July 31, 2024 (Michelle) Some elements in this clinic note that are critical to medical decision making have been carefully reviewed and included from a prior clinic note dated: August 02, 2023 (Michelle) Referring Provider: Dr. Stock Additional Clinicians involved in Aleksander Barger's care: Logan Gomez Assessment: (N18.32) Chronic renal failure, stage 3b (HCC) (primary encounter diagnosis) (E83.52) Hypercalcemia T3N1b Rectal cancer status post hemicolectomy August 2013. MSI stable Completed course of adjuvant chemotherapy. Did not tolerate well FOLFOX regimen. - was hospitalized Recurrent stage II colon cancer T2N0 in May 2014. Required a completion colectomy. No adjuvant therapy. Persisting Ascites mild continue monitoring Other vitamin B12 deficiency anemia Previously had a low B12 level found in 2014. Did receive monthly B12 IM from 1760-9785 with no improvement. Will monitor with labs every 6months CKD (chronic kidney disease) stage 3, GFR 30-59 ml/min Possibly contributing to her anemia. Will Monitor and consider erythropoetin if hgb drops >9.9 Hypercalcemia seems worse - iPTH was elevated February - referred back to ENT. PLAN: Triage to call with today's lab results Continue following with endocrinology (Dr. Humphrey) for hyperparathyroidism Continue following with nephrology (Dr. Bowen) RTC in 12 months - labs preceding week, re-scan if indicated Will have ordered labs to address anemia - HPI: CASE HISTORY: Reverse Chronological Order 01/09/2022 - Mammograms: BIRADS 1 - Negative. Normal interval follow-up in 12 months. 01/04/2022 - CT CAP w/Cont: Chest: Again seen are scattered small noncalcified pulmonary nodules which are overall nonspecific. The majority are unchanged, however there are at least two new nodules (since 03/08/2020) measuring 0.3-0.4 cm within the right middle lobe and right lower lobe. These may represent sites of small airways inflammation or mucous plugging. Continued attention on subsequent studies is suggested. No lymphadenopathy. A/P: Focal wall thickening involving right mid abdominal jejunal loops with associated interloop ascites, suggestive of enteritis. Correlation with clinical symptoms is suggested. If warranted, consideration could be given to further assessment with contrast-enhanced CT of the abdomen/pelvis. No evidence of metastatic disease within the limitations of a noncontrast examination. No lymphadenopathy. 06/09/2020 - CT A/P: No evidence of intra-abdominal/pelvic metastases. No interval change since 03/08/2020. Nonspecific trace loculated ascites/soft tissues prominence in the left hemipelvis, stable. 03/08/2020 - CT CAP: Chest: Bilateral subcentimeter pulmonary nodules, unchanged from prior study of 09/01/2019. No substantial intrathoracic adenopathy is identified. A/P: Small amount of abdominal and pelvic ascites, a new finding, as above. Mild, diffuse small bowel wall thickening is appreciated within the pelvis, a nonspecific finding. This may relate to prior radiation therapy. A minimally prominent retroperitoneal lymph node is again noted, unchanged from the prior study of 09/01/2019. 09/01/2019 - CT CAP: Chest: Subcentimeter right-sided pulmonary nodules, stable. There has been interval resolution of previously identified small reticulonodular infiltrate within the right lower lobe. Ectasia of the ascending thoracic aorta, unchanged. Heterogeneous enlargement of the right lobe of the thyroid gland, right lobe thyroid hypodensity, felt to be stable, poorly characterized on these unenhanced images. A/P: Minimally prominent aortocaval retroperitoneal lymph node appears unchanged from the prior study of 09/03/2018. Otherwise, essentially unremarkable postoperative appearance to the abdomen and pelvis. 09/03/2018 - CT CAP: Chest: Stable subcentimeter right-sided pulmonary nodules, as above. Heterogeneous enlargement of the right lobe of the thyroid gland, areas of decreased attenuation involving the right lobe, not as well characterized on these unenhanced images, however, stable. Mild ectasia of the ascending thoracic aorta, stable. A/P: Stable appearance to a minimally prominent retroperitoneal lymph node, as above. Postoperative changes. No definite CT evidence fo (more content not included)... Normal [facility] CNPNon 07-31-2024 CNPN Telephone (NCCAP) ALEKSANDER BARGER ([id number]) 1945 F Date Time Provider Department 07/31/24 ARNOL DAUGHERTY [facility] During your visit today, we recorded the following information about you: Mitzy Scott 07/31/2024 10:24 AM Signed Felicity Thomas 08/04/2024 8:28 AM Signed Put a note in patient's appt notes to schedule for this at next appt: Melania Maria, CLAIRE Nousky [employer] Pool When patient comes in for B12 injection on 08/05/24 please schedule for a total of 6 months and add a follow up with Dr. Daugherty in January with a B12 and labs. Thanks Melania Previous Messages ----- Message ----- From: Arnol Daugherty MD Sent: 08/01/2024 5:01 PM EST To: Melania Maria RN She may need them for the next year - let's try monthly for 6 months and I can see her with labs at that point. ----- Message ----- From: Melania Maria RN Sent: 08/01/2024 9:12 AM EST To: Arnol Daugherty MD Patient is set up for B12 this month and next. She was wondering how long she will need them? Do you want to repeat labs prior to July 2025? Thanks Melania ----- Message ----- From: Arnol Daugherty MD Sent: 07/31/2024 7:27 PM EST To: [facility] Triage Pool Iron is ok, but she needs B12 shots. Q 4weeks. Allergies As of Date: 07/31/2024 Noted Allergy Reaction DTAP-IPV COMPONENT 1 OF 2 (PF) 09/08/2019 14 - Other: See Comments Comments: Maria Alejandra Camarillo FLU VAC 2019 [id number](PF) 09/08/2019 14 - Other: See Comments Comments: Valeria Camarillo PNEUMOCOCCAL VACCINE 03/11/2019 14 - Other: See Comments Comments: Maria Alejandra Camarillo PENICILLINS 07/22/2013 16 - Unknown TETRACYCLINES 07/22/2013 2 - Rash Date Reviewed: 07/31/2024 Reviewed by: Mariella Montalvo MA - Fully Assessed Reason for Visit: Results [95] Prescriptions as of 08/04/2024 - amLODIPine (NORVASC) 5 mg tablet Take 1 tablet by mouth twice daily. - Cholecalciferol, Vitamin D3, 50 mcg (2,000 unit) cap - Magnesium 250 mg tab - zinc sulfate (ZINC-15 ORAL) - MEDICATION, NON-DATABASE Take 1 capsule by mouth once daily. RESTORE (EYE PROMISE) - Multivitamin capsule Take 1 capsule by mouth once daily. - aspirin, enteric coated (ASPIRIN, ENTERIC COATED) 81 mg EC tablet Take 81 mg by mouth once daily. 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/2022 07/04/2022 Renal cyst [N28.1] 02/23/2022 Anemia in stage 3b chronic kidney disease (HCC)*02/23/2022 07/04/2022 Essential hypertension [I10] 02/23/2022 Hyponatremia [E87.1] 02/24/2022 Hyperparathyroidism (HCC) [E21.3] 05/23/2022 Goiter [E04.9] 05/23/2022 Osteopenia of multiple sites [M85.89] 08/29/2022 Megaloblastic anemia due to vitamin B12 deficie*07/31/2024 Encounter Status:Closed by FACUNDO LLAMAS on 08/04/24 Normal [facility] Comprehensive metabolic 2000 panelon 07-31-2024 Albumin [Mass/Vol] 4.4 g/dL Normal 3.9-4.9 [facility] Comment on above: Order Comment: Speci men Type: BLOOD SPECIMEN Ordering Facility: [facility] Address: [address] [place], [place] [address] Performed By: #### 2 4323-8 #### [facility] CLIA [id number] [address] [place] [address] ALP [Catalytic activity/Vol] 88 U/L Normal 34-123 [facility] Comment on above: Order Comment: Speci men Type: BLOOD SPECIMEN Ordering Facility: [facility] Address: [address] [place] [address] Performed By: #### 2 4323-8 #### [facility] CLIA [id number] [address] [place] [address] ALT [Catalytic activity/Vol] 15 U/L Normal 7-38 [facility] Comment on above: Order Comment: Speci men Type: BLOOD SPECIMEN Ordering Facility: [facility] Address: [address] [place] [address] Performed By: #### 2 4323-8 #### [facility] CLIA [id number] [address] [place] [address] Anion gap [Moles/Vol] 12 mmol/L Normal 8-15 [facility] Comment on above: Order Comment: Speci men Type: BLOOD SPECIMEN Ordering Facility: [facility] Address: [address] [place] [address] Performed By: #### 2 4323-8 #### [facility] CLIA [id number] [address] [place] [address] AST [Catalytic activity/Vol] 22 U/L Normal 13-35 [facility] Comment on above: Order Comment: Speci men Type: BLOOD SPECIMEN Ordering Facility: [facility] Address: [address] [place] [address] Performed By: #### 2 4323-8 #### [facility] CLIA [id number] [address] [place] [address] Bilirubin [Mass/Vol] 0.5 mg/dL Normal 0.2-1.3 [facility] Comment on above: Order Comment: Speci men Type: BLOOD SPECIMEN Ordering Facility: [facility] Address: [address] [place] [address] Performed By: #### 2 4323-8 #### [facility] CLIA [id number] [address] [place] [address] Calcium [Mass/Vol] 10.9 mg/dL High 8.5-10.2 [facility] Comment on above: Order Comment: Speci men Type: BLOOD SPECIMEN Ordering Facility: [facility] Address: [address] [place] [address] Performed By: #### 2 4323-8 #### [facility] CLIA [id number] [address] [place] [address] Chloride [Moles/Vol] 99 mmol/L Normal 98-107 [facility] Comment on above: Order Comment: Speci men Type: BLOOD SPECIMEN Ordering Facility: [facility] Address: [address] [place] [address] Performed By: #### 2 4323-8 #### [facility] CLIA [id number] [address] [place] [address] CO2 [Moles/Vol] 25 mmol/L Normal 22-30 [facility] Comment on above: Order Comment: Speci men Type: BLOOD SPECIMEN Ordering Facility: [facility] Address: [address] [place] [address] Performed By: #### 2 4323-8 #### [facility] CLIA [id number] [address] [place] [address] Creatinine [Mass/Vol] 1.39 mg/dL High 0.58-0.96 [facility] Comment on above: Order Comment: Speci men Type: BLOOD SPECIMEN Ordering Facility: [facility] Address: [address] [place] [address] Performed By: #### 2 4323-8 #### [facility] CLIA [id number] [address] [place] [address] Creatinine and Glomerular filtration rate.predicted panel (S/P/Bld) 38 mL/min/1.73m??? Low >=60 [facility] Comment on above: Order Comment: Speci men Type: BLOOD SPECIMEN Ordering Facility: [facility] Address: [address] [place] [address] Result Comment: Regina mated Glomerular Filtration Rate (eGFR) is calculated using the 2020 CKD-EPI creatinine equation. This equation utilizes serum creatinine, sex, and age as parameters. The creatinine assay has traceable calibration to isotope dilution-mass spectrometry. Refer to KDIGO guidelines for clinical interpretation. In patients with unstable renal function, e.g. those with acute kidney injury, the eGFR may not accurately reflect actual GFR. Performed By: #### 2 4323-8 #### [facility] CLIA [id number] [address] [place] [address] Glucose [Mass/Vol] 102 mg/dL High 74-99 [facility] Comment on above: Order Comment: Speculisses men Type: BLOOD SPECIMEN Ordering Facility: [facility] Address: [address] [id number] Result Comment: The [place] Diabetes Association (ADA) provides guidance for cutoff [...] Standards of Medical Care in Diabetes 2016, [place] [employer]. Diabetes Care. 2016.39(Suppl 1). Performed By: #### 2 4323-8 #### [facility] CLIA [id number] [address] [place] [address] Potassium [Moles/Vol] 4.0 mmol/L Normal 3.7-5.1 [facility] Comment on above: Order Comment: John joseph Type: BLOOD SPECIMEN Ordering Facility: [facility] Address: [address] [place] [address] Performed By: #### 2 4323-8 #### [facility] CLIA [id number] [address] [place] [address] Protein [Mass/Vol] 7.3 g/dL Normal 6.3-8.0 [facility] Comment on above: Order Comment: Speci men Type: BLOOD SPECIMEN Ordering Facility: [facility] Address: [address] [place] [address] Performed By: #### 2 4323-8 #### [facility] CLIA [id number] [address] [place] [address] Sodium [Moles/Vol] 136 mmol/L Normal 136-144 [facility] Comment on above: Order Comment: Speci men Type: BLOOD SPECIMEN Ordering Facility: [facility] Address: [address] [place] [address] Performed By: #### 2 4323-8 #### [facility] CLIA [id number] [address] [place] [address] Urea nitrogen [Mass/Vol] 23 mg/dL High 7-21 [facility] Comment on above: Order Comment: Speci men Type: BLOOD SPECIMEN Ordering Facility: [facility] Address: [address] [place] [address] Performed By: #### 2 4323-8 #### [facility] CLIA [id number] [address] [place] [address] Ferritin SerPl-mCncon 2023 Ferritin [Mass/Vol] 133.0 ng/mL Normal 14.7-205.1 [facility] Comment on above: Order Comment: Speci men Type: BLOOD SPECIMEN Ordering Facility: [facility] Address: [address] [place], [place] [address] [address] Performed By: #### 1 989-3 #### [facility] CLIA [id number] [address] [place] [id number] [place] Folate SerPl-mCncon 07-31-20 24 Folate [Mass/Vol] ng/mL Normal >4.7 [facility] Comment on above: Order Comment: Speci men Type: BLOOD SPECIMEN Ordering Facility: [facility] Address: [address] [place] [id number] Result Comment: A re sult of > 20 ng/mL is not necessarily indicative of a pathologic or treatable condition: it reflects a limitation of the test methodology. Assay reference range: 4.8 to 24.2 ng/mL. Suitable for detection of folate deficiency. Reference: Folate III (Folate III) [package insert V 1.0 Jordanian]. [facility], [place], [place]: July 2015. Performed By: #### 1 989-3 #### [facility] CLIA [id number] [address] [place] [address] [place] Iron and Iron binding capaci ty panelon 07-31-2024 Iron [Mass/Vol] 55 ug/dL Normal 41-186 [facility] Comment on above: Order Comment: Speci men Type: BLOOD SPECIMEN Ordering Facility: [facility] [place] [id number] Performed By: #### 1 989-3 #### [facility] CLIA [id number] [address] [place] [address] [place] Iron binding capacity [Mass/Vol] 302 ug/dL Normal 232-386 [facility] Comment on above: Order Comment: Speci men Type: BLOOD SPECIMEN Ordering Facility: [facility] [place] [phone] Performed By: #### 1 989-3 #### [facility] CLIA [id number] [address] [place] [address] [place] Iron/TIBC [Molar ratio] 18.2 % Normal 15.0-57.0 [facility] Comment on above: Order Comment: Speci men Type: BLOOD SPECIMEN Ordering Facility: [facility] Address: [address] [place] [id number] Performed By: #### 1 989-3 #### [facility] CLIA [id number] [address] [place], [place] [address] [place] Vit B12 SerPl-mCncon 07-31- 024 Cobalamin (Vitamin B12) [Mass/Vol] 288 pg/mL Normal 232-1245 [facility] Comment on above: Order Comment: Speci men Type: BLOOD SPECIMEN Ordering Facility: [facility] Address: [address] [place], [place] [address] [phone] Performed By: #### 1 989-3 #### [facility] [place] [id number] [address] [place] [address] [place] 25([place])D3 [facility] 2023 25-hydroxyvitamin D3 [Mass/Vol] 39.3 ng/mL Normal 31.0-80.0 [facility] Comment on above: Order Comment: Speci men Type: URINE SPECIMEN Ordering Facility: [facility] Address: [address] [place], [place] [address] Performed By: #### 2 4356-8 #### [facility] [place] [id number] [address] [place] [address] [place] ALBUMIN/CREATININE RATIO, UR INEon 03-10-2024 Albumin DL <= 20 mg/L (U) [Mass/Vol] 17.8 mg/L Normal [facility] Comment on above: Order Comment: Speci men Type: URINE SPECIMEN Ordering Facility: [facility] Address: [address] [place] [address] Performed By: #### U ACR #### [facility] [place] [id number] [address] [place] [address] [place] Albumin/Creatinine (U) [Mass ratio] 20 mg/g Normal <30 [facility] Comment on above: Order Comment: Speci men Type: URINE SPECIMEN Ordering Facility: [facility] Address: [address] [place], [place] [address] Result Comment: Adul t Male and Female Nephrotic Criteria: <30 mg/g is considered normal to mildly increased 30-300 mg/g is considered moderately increased >300 mg/g is considered severely increased KDIGO. (2013). KDIGO 2012 Clinical Practice Guideline for the Evaluation and Management of Chronic Kidney Disease. Official Journal of the International Society of Nephrology, 3(1), 1-150. Performed By: #### U ACR #### [facility] CLIA [id number] [address] [place] [address] [place] Creatinine (U) [Mass/Vol] 88.6 mg/dL Normal 20.0-300.0 [facility] Comment on above: Order Comment: Speci men Type: URINE SPECIMEN Ordering Facility: [facility] Address: [facility] [place] [address] Performed By: #### U ACR #### [facility] CLIA [id number] [address] [place] [address] [place] CBC panel Auto (Bld)on 03-10 Erythrocyte distribution width (RBC) [Ratio] 13.2 % Normal 11.5-15.0 [facility] Comment on above: Order Comment: Speci men Type: URINE SPECIMEN Ordering Facility: [facility] Address: Critical [facility] [place] [address] Performed By: #### 2 4356-8 #### [facility] IA [id number] [address] [place], [place] [address] [place] Hematocrit (Bld) [Volume fraction] 35.8 % Low 36.0-46.0 [facility] Comment on above: Order Comment: Speci men Type: URINE SPECIMEN Ordering Facility: [facility] Address: Critical [facility] [place] [address] Performed By: #### 2 4356-8 #### [facility] IA [id number] [address] [place], [place] [address] [place] Hemoglobin (Bld) [Mass/Vol] 11.7 g/dL Normal 11.5-15.5 [facility] Comment on above: Order Comment: Speci men Type: URINE SPECIMEN Ordering Facility: [facility] Address: [facility] [address] [place] [id number] Performed By: #### 2 4356-8 #### [facility] CLIA [id number] [address] [place] [address] [place] MCH (RBC) [Entitic mass] 29.8 pg Normal 26.0-34.0 [facility] Comment on above: Order Comment: Speci men Type: URINE SPECIMEN Ordering Facility: [facility] Address: Critical [facility] [place] [address] Performed By: #### 2 4356-8 #### [facility] CLIA [id number] [address] [place] [address] [place] MCHC (RBC) [Mass/Vol] 32.7 g/dL Normal 30.5-36.0 [facility] Comment on above: Order Comment: Speci men Type: URINE SPECIMEN Ordering Facility: [facility] Address: Critical [facility] [place] [address] Performed By: #### 2 4356-8 #### [facility] CLIA [id number] [address] [place] [address] [place] MCV (RBC) [Entitic vol] 91.3 fL Normal 80.0-100.0 [facility] Comment on above: Order Comment: Speci men Type: URINE SPECIMEN Ordering Facility: [facility] Address: Critical access [place] [address] Performed By: #### 2 4356-8 #### [facility] CLIA [id number] [address] [place] [address] [place] Nucleated RBC (Bld) [#/Vol] 10*3/uL Normal <0.01 [facility] Comment on above: Order Comment: Speci men Type: URINE SPECIMEN Ordering Facility: [facility] Address: Critical access [place] [address] Performed By: #### 2 4356-8 #### [facility] CLIA [id number] [address] [place] [address] [place] Platelet mean volume (Bld) [Entitic vol] 10.0 fL Normal 9.0-12.7 [facility] Comment on above: Order Comment: Speci men Type: URINE SPECIMEN Ordering Facility: [facility] Address: [address] [place] [address] Performed By: #### 2 4356-8 #### [facility] CLIA [id number] [address] [place] [address] [place] Platelets (Bld) [#/Vol] 286 10*3/uL Normal 150-400 [facility] Comment on above: Order Comment: Speci men Type: URINE SPECIMEN Ordering Facility: [facility] Address: [address] [place] [address] Performed By: #### 2 4356-8 #### [facility] CLIA [id number] [address] [place] [address] [place] RBC (Bld) [#/Vol] 3.92 10*6/uL Normal 3.90-5.20 [facility] Comment on above: Order Comment: Speci men Type: URINE SPECIMEN Ordering Facility: [facility] Address: [address] [place], [place] [address] Performed By: #### 2 4356-8 #### [facility] CLIA [id number] [address] [place] [address] [place] WBC (Bld) [#/Vol] 6.54 10*3/uL Normal 3.70-11.00 [facility] Comment on above: Order Comment: Speci men Type: URINE SPECIMEN Ordering Facility: [facility] Address: [address] [place] [address] Performed By: #### 2 4356-8 #### [facility] CLIA [id number] [address] [place], [place] [address] [place] Comprehensive metabolic 2000 panelon 03-10-2024 Albumin [Mass/Vol] 4.7 g/dL Normal 3.9-4.9 [facility] Comment on above: Order Comment: Speci men Type: URINE SPECIMEN Ordering Facility: [facility] Address: [place] [address] Performed By: #### 2 4356-8 #### [facility] CLIA [id number] [address] [place] [address] [place] ALP [Catalytic activity/Vol] 111 U/L Normal 34-123 [facility] Comment on above: Order Comment: Speci men Type: URINE SPECIMEN Ordering Facility: [facility] Address: [place] [address] Performed By: #### 2 4356-8 #### [facility] CLIA [id number] [address] [place] [address] [place] ALT [Catalytic activity/Vol] 16 U/L Normal 7-38 [facility] Comment on above: Order Comment: Speci men Type: URINE SPECIMEN Ordering Facility: [facility] Nephrology Address: [address] [place] [id number] Performed By: #### 2 4356-8 #### [facility] CLIA [id number] [address] [place] [address] [place] Anion gap [Moles/Vol] 10 mmol/L Normal 8-15 [facility] Comment on above: Order Comment: Speci men Type: URINE SPECIMEN Ordering Facility: [facility] Nephrology Address: [place] [address] Performed By: #### 2 4356-8 #### [facility] CLIA [id number] [address] [place] [address] [place] AST [Catalytic activity/Vol] 22 U/L Normal 13-35 [facility] Comment on above: Order Comment: Speci men Type: URINE SPECIMEN Ordering Facility: [facility] Nephrology Address: [address] [place] [address] Performed By: #### 2 4356-8 #### [facility] CLIA [id number] [address] [place] [id number] [place] Bilirubin [Mass/Vol] 0.4 mg/dL Normal 0.2-1.3 [facility] Comment on above: Order Comment: Speci men Type: URINE SPECIMEN Ordering Facility: [facility]phrology [facility] [place] [address] Performed By: #### 2 4356-8 #### [facility] CLIA [id number] [address] [place] [address] [place] Calcium [Mass/Vol] 11.8 mg/dL High 8.5-10.2 [facility] Comment on above: Order Comment: Speci men Type: URINE SPECIMEN Ordering Facility: [facility] Nephrology [facility] [place] [address] Performed By: #### 2 4356-8 #### [facility] CLIA [id number] [address] [place] [address] [place] Chloride [Moles/Vol] 100 mmol/L Normal 98-107 [facility] Comment on above: Order Comment: Speci men Type: URINE SPECIMEN Ordering Facility: [facility] Nephrology Address: [address] , [place] [address] Performed By: #### 2 4356-8 #### [facility] CLIA [id number] [address] [place] [id number] [place] CO2 [Moles/Vol] 25 mmol/L Normal 22-30 [facility] Comment on above: Order Comment: Speci men Type: URINE SPECIMEN Ordering Facility: [facility] Nephrology Address: [address], [place] [address] Performed By: #### 2 4356-8 #### [facility] CLIA [id number] [address] [place], [place] [address] [place] Creatinine [Mass/Vol] 1.56 mg/dL High 0.58-0.96 [facility] Comment on above: Order Comment: John joseph Type: URINE SPECIMEN Ordering Facility: [facility] Nephrology Address: Critical [facility] [place] [address] Performed By: #### 2 4356-8 #### [facility] CLIA [id number] [address] [place] [address] [place] Creatinine and Glomerular filtration rate.predicted panel (S/P/Bld) 33 mL/min/1.73m??? Low >=60 [facility] Comment on above: Order Comment: John joseph Type: URINE SPECIMEN Ordering Facility: [facility] Nephrology Address: [address] [place], [place] [address] [address] Result Comment: Regina mated Glomerular Filtration Rate (eGFR) is calculated using the 2020 CKD-EPI creatinine equation. This equation utilizes serum creatinine, sex, and age as parameters. The creatinine assay has traceable calibration to isotope dilution-mass spectrometry. Refer to KDIGO guidelines for clinical interpretation. In patients with unstable renal function, e.g. those with acute kidney injury, the eGFR may not accurately reflect actual GFR. Performed By: #### 2 4356-8 #### [facility] CLIA [id number] [address] [place] [address] [place] Glucose [Mass/Vol] 96 mg/dL Normal 74-99 [facility] Comment on above: Order Comment: John joseph Type: URINE SPECIMEN Ordering Facility: [facility] Nephrology Address: Critical [facility] [place] [address] Result Comment: The [place] Diabetes Association (ADA) provides guidance for cutoff [...] Standards of Medical Care in Diabetes 2016, [place] [employer]. Diabetes Care. 2016.39(Suppl 1). Performed By: #### 2 4356-8 #### [facility] CLIA [id number] [address] [place], [place] [address] [place] Potassium [Moles/Vol] 4.2 mmol/L Normal 3.7-5.1 [facility] Comment on above: Order Comment: Speci men Type: URINE SPECIMEN Ordering Facility: [facility] Nephrology Address: Critical access [place] [address] Performed By: #### 2 4356-8 #### [facility] IA [id number] [address] [place] [address] [place] Protein [Mass/Vol] 7.9 g/dL Normal 6.3-8.0 [facility] Comment on above: Order Comment: Speci men Type: URINE SPECIMEN Ordering Facility: [facility] Nephrology Address: Critical access [place] [address] Performed By: #### 2 4356-8 #### [facility] IA [id number] [address] [place], [place] [address] [place] Sodium [Moles/Vol] 135 mmol/L Low 136-144 [facility] Comment on above: Order Comment: Speci men Type: URINE SPECIMEN Ordering Facility: [facility] Nephrology Address: [address] [place] [address] Performed By: #### 2 4356-8 #### [facility] CLIA [id number] [address] [place], [place] [address] [place] Urea nitrogen [Mass/Vol] 31 mg/dL High 7-21 [facility] Comment on above: Order Comment: Speci men Type: URINE SPECIMEN Ordering Facility: [facility] Nephrology Address: Critical access [facility] [place] [address] Performed By: #### 2 4356-8 #### [facility] CLIA [id number] [address] [facility] [address] [address] [place] Erythrocyte distribution wid th Auto (RBC) [Ratio]on 03-10-2024 Erythrocyte distribution width (RBC) [Ratio] 13.2 % 11.5-15.0 [facility] Hematocrit Auto (Bld) [Volum e fraction]on 03-10-2024 Hematocrit (Bld) [Volume fraction] 35.8 % Low 36.0-46.0 [facility] Hemoglobin [Mass/volume] in Bloodon 03-10-2024 Hemoglobin (Bld) [Mass/Vol] 11.7 g/dL 11.5-15.5 [facility] Laboratory - Chemistry and C hemistry - challengeon 03-10-2024 Bilirubin Ql (U) Negative Negative [facility] Glucose (U) [Mass/Vol] Negative Negative [facility] Ketones Ql (U) Negative Negative [facility] pH (U) 6.0 [pH] <8.5 [facility] Specific gravity (U) [Rel density] 1.011 1.005-1.030 [facility] Albumin [Mass/Vol] 4.7 g/dL 3.9-4.9 [facility] ALP [Catalytic activity/Vol] 111 U/L 34-123 [facility] ALT [Catalytic activity/Vol] 16 U/L 7-38 [facility] AST [Catalytic activity/Vol] 22 U/L 13-35 [facility] Bilirubin [Mass/Vol] 0.4 mg/dL 0.2-1.3 [facility] Calcium [Mass/Vol] 11.8 mg/dL High 8.5-10.2 [facility] Chloride [Moles/Vol] 100 mmol/L 98-107 [facility] CO2 [Moles/Vol] 25 mmol/L 22-30 [facility] Creatinine [Mass/Vol] 1.56 mg/dL High 0.58-0.96 [facility] Glucose [Mass/Vol] 96 mg/dL 74-99 [facility] Comment on above: The [place] Diabete s Association (ADA) provides guidance for cutoff values for fasting glucose and random glucose. The ADA defines fasting as no caloric intake for at least 8 hours. Fasting plasma glucose results between 100 to 125 mg/dL indicate increased risk for diabetes (prediabetes).Fasting plasma glucose results greater than or equal to 126 mg/dL meet the criteria for diagnosis of diabetes. In the absence of unequivocal hyperglycemia, results should be confirmed by repeat testing. In a patient with classic symptoms of hyperglycemia or hyperglycemic crisis, random plasma glucose results greater than or equal to 200 mg/dL meet the criteria for diagnosis of diabetes.Reference: Standards of Medical Care in Diabetes 2016, [place] Diabetes [employer]. Diabetes Care. 2016.39(Suppl 1). Magnesium [Mass/Vol] 1.8 mg/dL 1.7-2.3 [facility] Potassium [Moles/Vol] 4.2 mmol/L 3.7-5.1 [facility] Sodium [Moles/Vol] 135 mmol/L Low 136-144 [facility] Urate [Mass/Vol] 9.5 mg/dL High 2.5-6.6 [facility] Urea nitrogen [Mass/Vol] 31 mg/dL High 7-21 [facility] - Specimen inform ationon 03-10-2024 Appearance (U) Clear Clear [facility] Color (U) Yellow Yellow [facility] - Urinalysison Bacteria LM.HPF (Urine sed) [#/Area] Negative Negative [facility] Hyaline casts LM Ql (Urine sed) 0 /LPF 0 /LPF [facility] Leukocyte esterase Test strip Ql (U) Trace Abnormal Negative [facility] Nitrite Ql (U) Negative Negative [facility] Protein Ql (U) Negative Negative [facility] Leukocytes [#/volume] correc gail for nucleated erythrocytes in Blood by Automated counon 03-10-2024 WBC corrected for nucl RBC Auto (Bld) [#/Vol] 6.54 k/uL 3.70-11.00 [facility] MCH Auto (RBC) [Entitic mass ]on 03-10-2024 MCH (RBC) [Entitic mass] 29.8 pg 26.0-34.0 [facility] MCHC Auto (RBC) [Mass/Vol]on 03-10-2024 MCHC (RBC) [Mass/Vol] 32.7 g/dL 30.5-36.0 [facility] MCV Auto (RBC) [Entitic vol] on 03-10-2024 MCV (RBC) [Entitic vol] 91.3 fL 80.0-100.0 [facility] Magnesium SerPl-mCncon 03-10 Magnesium [Mass/Vol] 1.8 mg/dL Normal 1.7-2.3 [facility] Comment on above: Order Comment: Speci men Type: URINE SPECIMEN Ordering Facility: [facility] Nephrology Address: Critical access [place] [address] Performed By: #### 2 4356-8 #### [facility] CLIA [id number] [address] [place] [address] [place] No Panel Informationon 03-10 Urine Albumin/Creatinine Ratio 20 mg/g <30 [facility] Comment on above: Adult Male and Femal e Nephrotic Criteria:<30 mg/g is considered normal to mildly ewypbsden74-436 mg/g is considered moderately increased>300 mg/g is considered severely increasedKDIGO. (2013). KDIGO 2012 Clinical Practice Guideline for the Evaluation and Management of Chronic Kidney Disease. Official Journal of the International Society of Nephrology, 3(1), 1-150. Urine Microalbumin mg/dl 17.8 mg/L [facility] Urine Occult Blood Negative Negative [facility] Urine Random Creatinine 88.6 mg/dL 20.0-300.0 [facility] Urine RBC 0-2 /HPF 0-2 /HPF [facility] Urine Squamous Epithelial Cells None Seen [HPF] [facility] Urine Urobilinogen 0.2 EU/dL 0.2-1.0 EU/dL [facility] Urine WBC 0-5 /HPF 0-5 /HPF [facility] Estimated GFR (CKD-EPI) 33 mL/min/1.73m??? Low >=60 [facility] Comment on above: Estimated Glomerular Filtration Rate (eGFR) is calculated using the 2020 CKD-EPI creatinine equation. This equation utilizes serum creatinine, sex, and age as parameters. The creatinine assay has traceable calibration to isotope dilution-mass spectrometry. Refer to KDIGO guidelines for clinical interpretation. In patients with unstable renal function, e.g. those with acute kidney injury, the eGFR may not accurately reflect actual GFR. Parathyroid Hormone (Intact) 88 pg/mL High [facility] Phosphorus Level 3.2 mg/dL 2.7-4.8 [facility] Nucleated RBC Auto (Bld) [#/ Vol]on 03-10-2024 Nucleated RBC (Bld) [#/Vol] 10*3/uL <0.01 [facility] PTH-Intact SerPl-mCncon 02-22 Parathyrin.intact [Mass/Vol] 88 pg/mL High [facility] Comment on above: Order Comment: Speci men Type: BLOOD SPECIMEN Ordering Facility: [facility] Nephrology Address: [address] [place], [place] [address] [place] [address] Performed By: #### 2 731-8 #### [facility] CLIA [id number] [address] [place] [address] [place] Phosphate SerPl-mCncon 03-10 Phosphate [Mass/Vol] 3.2 mg/dL Normal 2.7-4.8 [facility] Comment on above: Order Comment: Speci men Type: URINE SPECIMEN Ordering Facility: [facility] Nephrology Address: [address] [place], [place] [address] [place] [id number] Performed By: #### 2 4356-8 #### [facility] CLIA [id number] [address] [place] [address] [place] Platelet mean volume Auto (B ld) [Entitic vol]on 03-10-2024 Platelet mean volume (Bld) [Entitic vol] 10.0 fL 9.0-12.7 [facility] Platelets Auto (Bld) [#/Vol] on 03-10-2024 Platelets (Bld) [#/Vol] 286 10*3/uL 150-400 [facility] Protein [Mass/volume] in Ser um or Plasmaon 03-10-2024 Protein [Mass/Vol] 7.9 g/dL 6.3-8.0 [facility] RBC Auto (Bld) [#/Vol]on RBC (Bld) [#/Vol] 3.92 10*6/uL 3.90-5.20 [facility] Serum or plasma anion gap de terminationon 03-10-2024 Anion gap [Moles/Vol] 10 mmol/L 8-15 [facility] Serum or plasma calcidiol me asurement (mass/volume)on 03-10-2024 25-hydroxyvitamin D3 [Mass/Vol] 39.3 ng/mL 31.0-80.0 [facility] Urate SerPl-mCncon Urate [Mass/Vol] 9.5 mg/dL High 2.5-6.6 [facility] Comment on above: Order Comment: Speci men Type: URINE SPECIMEN Ordering Facility: [facility] Nephrology Address: [address] [place] [address] Performed By: #### 2 4356-8 #### [facility] IA [id number] [address] [place] [address] [place] Urinalysis complete panel (U )on 03-10-2024 Bacteria LM.HPF (Urine sed) [#/Area] Negative Normal Negative [facility] Comment on above: Order Comment: Speci men Type: URINE SPECIMEN Ordering Facility: [facility] Nephrology Address: [address] [place], [place] [address] Performed By: #### 2 4356-8 #### [facility] [place] [id number] [address] [place] [address] [place] Bilirubin Ql (U) Negative Normal Negative [facility] Comment on above: Order Comment: Speci men Type: URINE SPECIMEN Ordering Facility: [facility] Nephrology Address: [address] [place] [address] Performed By: #### 2 4356-8 #### [facility] CLIA [id number] [address] [address] [place] Clarity (Unsp spec) Clear Normal Clear [facility] Comment on above: Order Comment: Speci men Type: URINE SPECIMEN Ordering Facility: [facility] Nephrology Address: Critical access hospital [place] [id number] Performed By: #### 2 4356-8 #### [facility] CLIA [id number] [address] [place] [id number] [place] Color (U) Yellow Normal Yellow [facility] Comment on above: Order Comment: Speci men Type: URINE SPECIMEN Ordering Facility: [facility] Nephrology Address: Critical access hospital [place] [id number] Performed By: #### 2 4356-8 #### [facility] CLIA [id number] [address] [place] [address] [place] Epithelial cells LM.HPF (Urine sed) [#/Area] None Seen Normal [facility] Comment on above: Order Comment: Speci men Type: URINE SPECIMEN Ordering Facility: [facility] Nephrology Address: Critical access hospital [place] [id number] Performed By: #### 2 4356-8 #### [facility] CLIA [id number] [address] [place] [id number] [place] Glucose Test strip (U) [Mass/Vol] Negative Normal Negative [facility] Comment on above: Order Comment: Speci men Type: URINE SPECIMEN Ordering Facility: [facility] Nephrology Address: Critical access [place] [address] Performed By: #### 2 4356-8 #### [facility] CLIA [id number] [address] [place] [id number] [place] Hemoglobin Ql (U) Negative Normal Negative [facility] Comment on above: Order Comment: Speci men Type: URINE SPECIMEN Ordering Facility: [facility] Nephrology Address: Critical access hospital [place] [id number] Performed By: #### 2 4356-8 #### [facility] CLIA [id number] [address] [place] [address] [place] Hyaline casts (Urine sed) [#/Area] 0 /[LPF] Normal 0 /LPF [facility] Comment on above: Order Comment: Speci men Type: URINE SPECIMEN Ordering Facility: [facility] Nephrology Address: Critical access [place] [address] Performed By: #### 2 4356-8 #### [facility] CLIA [id number] [address] [place] [address] [place] Ketones Ql (U) Negative Normal Negative [facility] Comment on above: Order Comment: Speci men Type: URINE SPECIMEN Ordering Facility: [facility] Nephrology Address: Critical access [place] [address] Performed By: #### 2 4356-8 #### [facility] CLIA [id number] [address] [place] [address] [place] Leukocyte esterase Test strip Ql (U) Trace Abnormal Negative [facility] Comment on above: Order Comment: Speci men Type: URINE SPECIMEN Ordering Facility: [facility] Nephrology Address: Critical access [facility] [place] [address] Performed By: #### 2 4356-8 #### [facility] CLIA [id number] [address] [place] [address] [place] Nitrite Ql (U) Negative Normal Negative [facility] Comment on above: Order Comment: Speci men Type: URINE SPECIMEN Ordering Facility: [facility]phrology [facility] [place] [address] Performed By: #### 2 4356-8 #### [facility] CLIA [id number] [facility] [place] [address] [place] pH (U) 6.0 [pH] Normal <8.5 [facility] Comment on above: Order Comment: Speci men Type: URINE SPECIMEN Ordering Facility: [facility] Nephrology [facility] [place] [place] [id number] Performed By: #### 2 4356-8 #### [facility] CLIA [id number] [address] [place] [address] [place] Protein (U) [Mass/Vol] Negative Normal Negative [facility] Comment on above: Order Comment: Speci men Type: URINE SPECIMEN Ordering Facility: [facility] Nephrology Address: Critical access hospital [place] [phone] Performed By: #### 2 4356-8 #### [facility] IA [id number] [address] [place] [address] [place] RBC LM.HPF (Urine sed) [#/Area] 0-2 /HPF Normal 0-2 /HPF [facility] Comment on above: Order Comment: Speci men Type: URINE SPECIMEN Ordering Facility: [facility] Nephrology [facility] [place] [address] Performed By: #### 2 4356-8 #### [facility] IA [id number] [address] [place] [address] [place] Specific gravity (U) [Rel density] 1.011 Normal 1.005-1.030 [facility] Comment on above: Order Comment: Speci men Type: URINE SPECIMEN Ordering Facility: [facility] Nephrology [facility] [place] [id number] Performed By: #### 2 4356-8 #### [facility] IA [id number] [address] [place] [address] [place] Urobilinogen Ql (U) 0.2 EU/dL Normal 0.2-1.0 EU/dL [facility] Comment on above: Order Comment: Speci men Type: URINE SPECIMEN Ordering Facility: [facility] Nephrology Address: [facility] [address] Performed By: #### 2 4356-8 #### [facility] CLIA [id number] [address] [place] [address] [place] WBC LM.HPF (Urine sed) [#/Area] 0-5 /HPF Normal 0-5 /HPF [facility] Comment on above: Order Comment: Speci men Type: URINE SPECIMEN Ordering Facility: [facility] Nephrology Address: [address], [facility] [place] [address] Performed By: #### 2 4356-8 #### [facility] CLIA [id number] [address] [place] [address] [place] [address] neck 4D parathyroidon CT neck 4D parathyroid [facility] [address] [place] [address] CT Scan Report Signed Patient: Aleksander Barger MR#: [id number] 242 : 1945 Acct:[id number] Age/Sex: 78 / F ADM Date: 07/31/23 Loc: [place] Room: Type: [facility] Attending Dr: Alan Adams DO Copies to: Alan Adams DO Ordering Provider: Alan Adams DO Date of Service: 07/31/23 CT/CT neck 4D parathyroid: hyperparathyroidism 4D CT NECK WITHOUT AND WITH CONTRAST CLINICAL DATA: Hyperparathyroidism. COMPARISON: Thyroid ultrasound 11/29/2016 and parathyroid scan 07/31/2023 Spiral images were obtained through the neck without contrast. Following intravenous administration of 90 mL Isovue-300, scans were repeated at 25 seconds and [address] exam was performed using one or more following dose reduction techniques: Automated exposure control, adjustment of the mA and/or kV according to patient size, or use of iterative reconstruction technique. There is a large complex cystic and solid nodule encompassing most of the right thyroid lobe which also contains a couple calcifications. This measures approximately 3.4 x 1.7 x 1.4 cm in size. There is no early enhancing nodularity around the right thyroid lobe. On the left superiorly, there is slightly nodular contour to the posterior aspect of the thyroid lobe and this area appears to washout on the delayed scans more than the remainder of the thyroid lobe. This finding is not obvious on the comparison parathyroid study. This area is approximately 6 mm in size. Parathyroid adenoma is not completely excluded. No additional suspected parathyroid adenomas are seen in the field of view. The parotid and submandibular glands appear symmetric. The epiglottis and vocal cords are within normal limits. The airway is patent throughout its course with normal appearance the mucosal surfaces. There are a few tiny scattered cervical lymph nodes. There is some facet disease at the cervical spine. The imaged paranasal sinuses and mastoid air cells are clear. Limited imaging through the upper chest shows minimal apical scarring. There are no other contributory findings. CT/CT neck 4D parathyroid IMPRESSION: LARGE COMPLEX RIGHT THYROID NODULE. EQUIVOCAL ENHANCING NODULE POSTERIOR TO THE SUPERIOR POLE OF THE LEFT THYROID LOBE. PARATHYROID ADENOMA IS NOT EXCLUDED HOWEVER THERE IS NO DEFINITE CORRELATE ON THE PARATHYROID SCAN. Impression dictated by: Sharda Salmeron M.D.08/01/2023 8:46 AM Dictation Location: [place] [address] Transcribed By: [facility] 08/01/23845 Dictated By: Sharda Salmeron MD 07/31/23 1455 Signed By: 08/01/23845 [facility] Creatinine (Bld) [Mass/Vol]O rdered By: Alan Adams on 07-31-2023 Creatinine [Mass/Vol] 1.5 mg/dL 0.6-1.3 [facility] Comment on above: ER/ESD physician is notified/shown all ISTAT results.Critical values may be confirmed by laboratory testing ifdeemed necessary by ER attending doctor. ISTAT XRay CREon 07-31-2023 Creatinine [Mass/Vol] 1.5 mg/dL High 0.6-1.3 [facility] Comment on above: Result Comment: ER/E SD physician is notified/shown all ISTAT results. Critical values may be confirmed by laboratory testing if deemed necessary by ER attending doctor. Performed By: #### I SCRE #### [facility] [address] [place] [address] ISTAT GFR 35.229 [facility] Comment on above: Result Comment: PERF ORMED BY: [place] [address] PATHOLOGIST PACKAGE WRAPPER GILBERT HERNANDEZ M.D. Performed By: #### I SCRE #### [address] NM*parathyroid SPECT*on NM*parathyroid SPECT* [facility] [address] [place] [address] Nuclear Medicine Report Signed Patient: Aleksander Barger MR#: [id number] : 1945 Acct:[id number] Age/Sex: 78 / F ADM Date: 07/31/23 Loc: [place] Room: Type: [facility] Attending Dr: Alan Adams DO Copies [...] is no convincing parathyroid adenoma. NM/NM*parathyroid SPECT* IMPRESSION: NO DEFINITE PARATHYROID ADENOMA. ASYMMETRICAL UPTAKE ON THE RIGHT WHERE PATIENT HAS A KNOWN LARGE COMPLEX CYSTIC AND SOLID NODULE. Impression dictated by: Sharda Salmeron M.D.08/01/2023 8:46 AM Dictation Location: [place] [address] Transcribed By: [facility] 08/01/2346 Dictated By: Sharda Salmeron MD 07/31/23 1438 Signed By: 08/01/23845 [facility] No Panel InformationOrdered By: Alan Adams on 07-31-2023 Bedside Estimated GFR (eGFR) 35.229 [facility] MAGNESIUM BLDon 01-25-2023 Magnesium [Mass/Vol] 2.0 mg/dL 1.7 - 2 .3 mg/dL [facility] PHOSPHORUS INORGANICon 01-25 Phosphate [Mass/Vol] 3.6 mg/dL 2.7 - 4 .8 mg/dL [facility] URIC ACID BLOODon 01-25-2023 Urate [Mass/Vol] 9.5 mg/dL High 2.5 - 6.6 mg/dL [facility] US THYROID/PARATHYROIDon [facility] CT Abdomen and Pelvis W cont rast Erica 07-27-2022 IMPRESSION: 1. No evidence for metastatic disease to the abdomen or pelvis. 2. Previously identified wall thickening involving several mid small bowel loops has resolved. Transcribe Date/Time: Jul 26 2022 3:50P Dictated by: TIGIST GRAVES MD This examination was interpreted and the report reviewed and electronically signed by: TIGIST GRAVES MD on Jul 27 2022 8:51AM EST Thank you for allowing us to participate in the care of your patient. Should there be any questions regarding this interpretation, please call [phone]. If you are unable to reach us at the number above, please feel free to contact [facility] eRadiology at [phone]. DIVISION OF RADIOLOGY * * *Final Report* * * DATE OF EXAM: Jul 26 2022 3:16PM [facility] 0530 - CT ABD/PEL W IVCON / PROCEDURE REASON: Malignant neoplasm of colon, unspecified part of colon (HCC) * * * * Physician Interpretation * * * * RESULT: EXAMINATION: CT ABDOMEN AND PELVIS WITH IV CONTRAST CLINICAL HISTORY: Colon carcinoma TECHNIQUE: CT of the abdomen and pelvis was performed using standard technique, scanning from just above the dome of the diaphragm to the symphysis pubis. MQ: CTAP_3 Contrast: IV: 125 ml of Omnipaque 300 Oral: 450 ml of 50ML Omnipaque [address] Radiation dose: Integrated Dose-length product (DLP) for this visit = 1121 mGy*cm. CT Dose Reduction Employed: Automated exposure control (AEC) COMPARISON: 01/04/2022 RESULT: Liver: No mass. Biliary Tract: No bile duct dilation. The gallbladder is not identified, likely surgically absent. Spleen: No splenomegaly. No mass. Pancreas: No mass or ductal dilatation. Adrenal glands: No mass. Kidneys: No enhancing mass or hydronephrosis. Several bilateral hypodensities are identified, likely related to cysts, largest on the right measuring 1.6 cm in maximal diameter. GI Tract: No bowel wall thickening or dilation. Postoperative changes, compatible with prior subtotal colectomy. Ileorectal anastomotic site appears stable. Previously identified wall thickening involving several mid small bowel loops has resolved. Lymph nodes: No substantial mesenteric, retroperitoneal, or pelvic lymphadenopathy. Mesentery: No ascites. No mass. Retroperitoneum: No mass. Vasculature: - Abdominal aorta and iliac arteries: Atherosclerotic calcifications without aneurysm. - Celiac and SMA: Patent. - Portal venous system (SMV, splenic vein, portal vein and branches): Patent. - Hepatic veins: Patent. Pelvis: No free fluid or pelvic mass. Bones/Soft Tissues: No osseous destructive process. Degenerative change involving the lumbar spine is again appreciated. Lower Thorax: A CT examination of the chest has been performed concurrently and will be dictated separately. [place]cher (topogram) images: No additional findings. DIVISION OF RADIOLOGY Provider, [facility] - 07/27/2022 * * *Final Report* * * DATE OF EXAM: Jul 26 2022 3:16PM [facility] 0530 - CT ABD/PEL W IVCON / PROCEDURE REASON: Malignant neoplasm of colon, unspecified part of colon (HCC) * * * * Physician Interpretation * * * * RESULT: EXAMINATION: CT ABDOMEN AND PELVIS WITH IV CONTRAST CLINICAL HISTORY: Colon carcinoma TECHNIQUE: CT of the abdomen and pelvis was performed using standard technique, scanning from just above the dome of the diaphragm to the symphysis pubis. MQ: CTAP_3 Contrast: IV: 125 ml of Omnipaque 300 Oral: 450 ml of 50ML Omnipaque [address] Radiation dose: Integrated Dose-length product (DLP) for this visit = 1121 mGy*cm. CT Dose Reduction Employed: Automated exposure control (AEC) COMPARISON: 01/04/2022 RESULT: Liver: No mass. Biliary Tract: No bile duct dilation. The gallbladder is not identified, likely surgically absent. Spleen: No splenomegaly. No mass. Pancreas: No mass or ductal dilatation. Adrenal glands: No mass. Kidneys: No enhancing mass or hydronephrosis. Several bilateral hypodensities are identified, likely related to cysts, largest on the right measuring 1.6 cm in maximal diameter. GI Tract: No bowel wall thickening or dilation. Postoperative changes, compatible with prior subtotal colectomy. Ileorectal anastomotic site appears stable. Previously identified wall thickening involving several mid small bowel loops has resolved. Lymph nodes: No substantial mesenteric, retroperitoneal, or pelvic lymphadenopathy. Mesentery: No ascites. No mass. Retroperitoneum: No mass. Vasculature: - Abdominal aorta and iliac arteries: Atherosclerotic calcifications without aneurysm. - Celiac and SMA: Patent. - Portal venous system (SMV, splenic vein, portal vein and branches): Patent. - Hepatic veins: Patent. Pelvis: No free fluid or pelvic mass. Bones/Soft Tissues: No osseous destructive process. Degenerative change involving the lumbar spine is again appreciated. Lower Thorax: A CT examination of the chest has been performed concurrently and will be dictated separately. [place]cher (topogram) images: No additional findings. IMPRESSION IMPRESSION: 1. No evidence for metastatic disease to the abdomen or pelvis. 2. Previously identified wall thickening involving several mid small bowel loops has resolved. Transcribe Date/Time: Jul 26 2022 3:50P Dictated by: TIGIST GRAVES MD This examination was interpreted and the report reviewed and electronically signed by: TIGIST GRAVES MD on Jul 27 2022 8:51AM EST Thank you for allowing us to participate in the care of your patient. Should there be any questions regarding this interpretation, please call [phone]. If you are unable to reach us at the number above, please feel free to contact [facility] eRadiology at [phone]. [facility] CT Chest W contrast Erica IMPRESSION: 1. Several bilateral subcentimeter pulmonary nodules are again identified, stable from prior study of 01/04/2022. 2. 2.1 cm right lobe partially calcified thyroid nodule, unchanged. 3. No substantial intrathoracic adenopathy is appreciated. Transcribe Date/Time: Jul 26 2022 3:59P Dictated by: TIGIST GRAVES MD This examination was interpreted and the report reviewed and electronically signed by: TIGIST GRAVES MD on Jul 27 2022 8:52AM EST Thank you for allowing us to participate in the care of your patient. Should there be any questions regarding this interpretation, please call [phone]. If you are unable to reach us at the number above, please feel free to contact [facility] at [phone]. DIVISION OF RADIOLOGY * * *Final Report* * * DATE OF EXAM: Jul 26 2022 3:16PM [facility] 0539 - CT CHEST W IVCON / PROCEDURE REASON: Lung nodules * * * * Physician Interpretation * * * * RESULT: EXAMINATION: CHEST CT WITH CONTRAST CLINICAL HISTORY: Colon carcinoma Technique: Spiral CT acquisition of the chest from the thoracic inlet to the upper abdomen following IV contrast. MQ: CTCW_6 Contrast: 125 mL Omnipaque [address] Radiation dose: Integrated Dose-length product (DLP) for this visit = 1121 mGy*cm CT Dose Reduction Employed: Automated exposure control (AEC) Comparison: CT chest 01/04/2022 RESULT: Limitations: None. Lines, tubes, and devices: None. Lung parenchyma , airways, and pleural space: No consolidative process or pleural effusion is appreciated. The trachea and major airways appear patent. Several punctate, less than 4 mm pulmonary nodules are again identified bilaterally, for example, on the right, images 97, 103, series 4. No suspicious enlarging nodule is identified. Lower neck, lymph nodes, and mediastinum: 2.1 x 1.6 cm right lobe hypodensity, partially calcified, stable. No substantial supraclavicular or axillary lymphadenopathy. No substantial mediastinal or hilar adenopathy is identified. Heart, pericardium, and thoracic vessels: Mild ectasia of the ascending thoracic aorta measuring 3.7 cm. Coronary artery calcification is noted. No substantial pericardial effusion. Bones/Soft Tissues: Degenerative change involving the thoracic spine. No osseous destructive process. Upper Abdomen: A CT examination of the abdomen has been performed concurrently and will be dictated separately. [place]cher (topogram) images: No additional findings. DIVISION OF RADIOLOGY Provider, Jamie Lilly - 07/27/2022 * * *Final Report* * * DATE OF EXAM: Jul 26 2022 3:16PM [facility] 0539 - CT CHEST W IVCON / PROCEDURE REASON: Lung nodules * * * * Physician Interpretation * * * * RESULT: EXAMINATION: CHEST CT WITH CONTRAST CLINICAL HISTORY: Colon carcinoma Technique: Spiral CT acquisition of the chest from the thoracic inlet to the upper abdomen following IV contrast. MQ: CTCW_6 Contrast: 125 mL Omnipaque [address] Radiation dose: Integrated Dose-length product (DLP) for this visit = 1121 mGy*cm CT Dose Reduction Employed: Automated exposure control (AEC) Comparison: CT chest 01/04/2022 RESULT: Limitations: None. Lines, tubes, and devices: None. Lung parenchyma , airways, and pleural space: No consolidative process or pleural effusion is appreciated. The trachea and major airways appear patent. Several punctate, less than 4 mm pulmonary nodules are again identified bilaterally, for example, on the right, images 97, 103, series 4. No suspicious enlarging nodule is identified. Lower neck, lymph nodes, and mediastinum: 2.1 x 1.6 cm right lobe hypodensity, partially calcified, stable. No substantial supraclavicular or axillary lymphadenopathy. No substantial mediastinal or hilar adenopathy is identified. Heart, pericardium, and thoracic vessels: Mild ectasia of the ascending thoracic aorta measuring 3.7 cm. Coronary artery calcification is noted. No substantial pericardial effusion. Bones/Soft Tissues: Degenerative change involving the thoracic spine. No osseous destructive process. Upper Abdomen: A CT examination of the abdomen has been performed concurrently and will be dictated separately. [place]cher (topogram) images: No additional findings. IMPRESSION IMPRESSION: 1. Several bilateral subcentimeter pulmonary nodules are again identified, stable from prior study of 01/04/2022. 2. 2.1 cm right lobe partially calcified thyroid nodule, unchanged. 3. No substantial intrathoracic adenopathy is appreciated. Transcribe Date/Time: Jul 26 2022 3:59P Dictated by: TIGIST GRAVES MD This examination was interpreted and the report reviewed and electronically signed by: TIGIST GRAVES MD on Jul 27 2022 8:52AM EST Thank you for allowing us to participate in the care of your patient. Should there be any questions regarding this interpretation, please call [phone]. If you are unable to reach us at the number above, please feel free to contact [facility] eRadiology at [phone]. [facility] No Panel InformationOrdered By: Ccf Provider on 07-27-2022 [facility] No Panel Informationon 07-26 Radiology Study observation (narrative) [facility] CT Neck WO contraston 2021 IMPRESSION: 1. Dominant right thyroid nodule with punctate central calcification. 2. Minimal left inferior mastoid air cell effusion. 3. Cervical spondylosis with severe right C3-4 foramina narrowing. COUNTING REFERENCE: Superior cervical disc is taken as C2-3. Structural anomalies: None. Transcribe Date/Time: Jul 19 2022 11:15A Dictated by: ROSAURA RANGEL MD This examination was interpreted and the report reviewed and electronically signed by: ROSAURA RANGEL MD on Jul 19 2022 11:21AM EST Thank you for allowing us to participate in the care of your patient. Should there be any questions regarding this interpretation, please call [phone]. If you are unable to reach us at the number above, please feel free to contact [facility] eRadiology at [phone]. DIVISION OF RADIOLOGY * * *Final Report* * * DATE OF EXAM: Jul 19 2022 10:17AM [facility] 0509 - CT NECK SOFT TISSUE WO IVCON / PROCEDURE REASON: Cervicalgia * * * * Physician Interpretation * * * * RESULT: COMPARISONS: None. HISTORY: Cervicalgia. TECHNIQUE: CT neck without contrast. CT Dose-Length Product (DLP): 520 mGy*cm CT Dose Reduction Employed: Automated exposure control (AEC) RESULT: NECK CT: Acute abnormality: None. This is not a dedicated exam for evaluation of cervical spine and if there is concern for cervical spine abnormality MRI or CT of cervical spine would be of value if clinically indicated. Minimal fluid along the inferior left mastoid air cell and may be nonspecific or mastoiditis or eustachian tube occlusion. 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 Dominant nodule at right thyroid at 23 mm with punctate central calcification is of unclear significance. This may potentially represent of goiter or may represent a primary thyroid lesion warranting clinical correlation. Subjacent fat planes are normal. No draining pathological adenopathy is identified. Allowing for lack of contrast symmetrical and unremarkable intracranial structures, orbits, sinuses, skull base, copbnfwf-dgirrhzy-hmfe ds, aerodigestive tract with mucosal lining, course of vessels, fat planes and soft tissues without any soft tissue, loculated collections or pathological neck lymphadenopathy. CT CERVICAL SPINE: Acute abnormality: None. Decreased bone density indicating osteopenia. Mild scoliosis. Maintained intervertebral disc height. Mild facet and uncovertebral joint degeneration indicating spondylosis but without any central canal compromise with CSF present ventral and dorsal to the spinal cord. Normal alignment, vertebral height, central canal, thecal sac, spinal cord caliber & posterior fossa. No fracture/dislocation. Normal tissues. C2 -- 3: Patent central canal. Patent bilateral neural foramina. C3 -- 4: Joint degeneration. Patent canal and left foramina. Severe right foramina narrowing. C4 -- 5: Joint degeneration. Patent central canal. Mild bilateral foramina narrowing. C5 -- 6: Joint degeneration. Patent central canal. Mild bilateral foramina narrowing. C6 -- 7: Joint degeneration. Patent central canal. Mild bilateral foramina narrowing. C7 -- T1: Patent central canal. Patent bilateral neural foramina. DIVISION OF RADIOLOGY Provider, [facility] - 07/19/2022 * * *Final Report* * * DATE OF EXAM: Jul 19 2022 10:17AM [facility] 0509 - CT NECK SOFT TISSUE WO IVCON / PROCEDURE REASON: Cervicalgia * * * * Physician Interpretation * * * * RESULT: COMPARISONS: None. HISTORY: Cervicalgia. TECHNIQUE: CT neck without contrast. CT Dose-Length Product (DLP): 520 mGy*cm CT Dose Reduction Employed: Automated exposure control (AEC) RESULT: NECK CT: Acute abnormality: None. This is not a dedicated exam for evaluation of cervical spine and if there is concern for cervical spine abnormality MRI or CT of cervical spine would be of value if clinically indicated. Minimal fluid along the inferior left mastoid air cell and may be nonspecific or mastoiditis or eustachian tube occlusion. 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 Dominant nodule at right thyroid at 23 mm with punctate central calcification is of unclear significance. This may potentially represent of goiter or may represent a primary thyroid lesion warranting clinical correlation. Subjacent fat planes are normal. No draining pathological adenopathy is identified. Allowing for lack of contrast symmetrical and unremarkable intracranial structures, orbits, sinuses, skull base, htlgemlv-asxherdo-hjqe ds, aerodigestive tract with mucosal lining, course of vessels, fat planes and soft tissues without any soft tissue, loculated collections or pathological neck lymphadenopathy. CT CERVICAL SPINE: Acute abnormality: None. Decreased bone density indicating osteopenia. Mild scoliosis. Maintained intervertebral disc height. Mild facet and uncovertebral joint degeneration indicating spondylosis but without any central canal compromise with CSF present ventral and dorsal to the spinal cord. Normal alignment, vertebral height, central canal, thecal sac, spinal cord caliber & posterior fossa. No fracture/dislocation. Normal tissues. C2 -- 3: Patent central canal. Patent bilateral neural foramina. C3 -- 4: Joint degeneration. Patent canal and left foramina. Severe right foramina narrowing. C4 -- 5: Joint degeneration. Patent central canal. Mild bilateral foramina narrowing. C5 -- 6: Joint degeneration. Patent central canal. Mild bilateral foramina narrowing. C6 -- 7: Joint degeneration. Patent central canal. Mild bilateral foramina narrowing. C7 -- T1: Patent central canal. Patent bilateral neural foramina. IMPRESSION IMPRESSION: 1. Dominant right thyroid nodule with punctate central calcification. 2. Minimal left inferior mastoid air cell effusion. 3. Cervical spondylosis with severe right C3-4 foramina narrowing. COUNTING REFERENCE: Superior cervical disc is taken as C2-3. Structural anomalies: None. Transcribe Date/Time: Jul 19 2022 11:15A Dictated by: ROSAURA RANGEL MD This examination was interpreted and the report reviewed and electronically signed by: ROSAURA RANGEL MD on Jul 19 2022 11:21AM EST Thank you for allowing us to participate in the care of your patient. Should there be any questions regarding this interpretation, please call [phone]. If you are unable to reach us at the number above, please feel free to contact [facility] eRadiology at [phone]. [facility] Radiology Study observation (narrative) [facility] CT Neck WO contrastOrdered B y: Ccf Provider on 07-19-2022 [facility] No Panel Informationon 05-28 LOWEST T-SCORE -1.4 [facility] US KIDNEY/BLADDERon 04-25-20 [facility] Comprehensive metabolic 2000 panelon 03-24-2022 Albumin [Mass/Vol] 4.6 g/dL 3.9 - 4.9 g/dL [facility] ALP [Catalytic activity/Vol] 78 U/L 34 - 123 U/L [facility] ALT [Catalytic activity/Vol] 16 U/L 7 - 38 U/L [facility] Anion gap [Moles/Vol] 11 mmol/L 9 - 18 mmol/L [facility] AST [Catalytic activity/Vol] [facility] Bilirubin [Mass/Vol] 0.3 mg/dL 0.2 - 1 .3 mg/dL [facility] Calcium [Mass/Vol] 10.7 mg/dL High 8.5 - 10. 2 mg/dL [facility] Chloride [Moles/Vol] 105 mmol/L 97 - 10 5 mmol/L [facility] CO2 [Moles/Vol] 18 mmol/L Low 22 - 30 mmol/L [facility] Creatinine [Mass/Vol] 1.46 mg/dL High 0.58 - 0.96 mg/dL [facility] Estimated Glomerular Filtration Rate 37 mL/min/1.73m Low >=60 mL/min/1.73m [facility] Glucose [Mass/Vol] 96 mg/dL 74 - 99 mg/dL [facility] Potassium [Moles/Vol] 5.3 mmol/L High 3.7 - 5.1 mmol/L [facility] Protein [Mass/Vol] 7.1 g/dL 6.3 - 8.0 g/dL [facility] Sodium [Moles/Vol] 134 mmol/L Low 136 - 144 mmol/L [facility] Urea nitrogen [Mass/Vol] 54 mg/dL High 7 - 21 mg/dL [facility] ANTI NEUTRO CYTO ABon 2021 INTERPRETATION (ANCA) Equivocal staining seen on the ethanol (indirect immunofluorescence screen) side but negative results on follow up confirmatory testing. Anti-nuclear antibody test may be considered. Clinical correlation is required. Normal [facility] Comment on above: Order Comment: Speci men Type: BLOOD SPECIMEN Ordering Facility: [facility] Address: [address] [place] [address] Performed By: #### B 12 2284-8 #### [facility] CLIA [id number] [facility] [place] [address] [place] Myeloperoxidase Ab Qn (S) <0.2 Normal <1.0 [facility] Comment on above: Order Comment: Speci men Type: BLOOD SPECIMEN Ordering Facility: [facility] Address: [address] [place] [address] Performed By: #### 2284-04 #### [facility] CLIA [id number] [place] Neutrophil cytoplasmic Ab.classic IF Ql (S) Negative Normal Negative [facility] Comment on above: Order Comment: Speci men Type: BLOOD SPECIMEN Ordering Facility: [facility] Address: [address] [place] [address] Performed By: #### 2284-04 #### [facility] CLIA [id number] Neutrophil cytoplasmic Ab.perinuclear IF Ql (S) Negative Normal Negative [facility] Comment on above: Order Comment: Speci men Type: BLOOD SPECIMEN Ordering Facility: [facility] Address: [address] [place] [address] Performed By: #### 2284-04 #### [facility] CLIA [id number] [address] [place] [address] [place] Proteinase 3 Ab Qn (S) <0.2 Normal <1.0 [facility] Comment on above: Order Comment: Speci men Type: BLOOD SPECIMEN Ordering Facility: [facility] Address: [address] [place] [address] Performed By: #### 2284-04 #### [facility] CLIA [id number] [place] STAFF REVIEW (ANCA) Reviewed by Ronny Mary, Ph.D D([facility]) [facility] Comment on above: Order Comment: Speci men Type: BLOOD SPECIMEN Ordering Facility: [facility] Address: [address] [place] [address] Performed By: #### 2284-04 #### [facility] CLIA [id number] [address] [place] [address]. [place] [address] [place] C3 SerPl-mCncon 02-23-2022 Complement C3 [Mass/Vol] 113 mg/dL Normal 86-166 [facility] Comment on above: Order Comment: Speci men Type: BLOOD SPECIMEN Ordering Facility: [facility] Address: [address] [place] [address] Performed By: #### 3 016-3, CK, 2777-1, FERR #### [facility] CLIA [id number] [place] [address] [place] C4 SerPl-mCncon 02-23-2022 Complement C4 [Mass/Vol] 19 mg/dL Normal 13-46 [facility] Comment on above: Order Comment: Speci men Type: BLOOD SPECIMEN Ordering Facility: [facility] Address: [address] [place] [address] Performed By: #### 3 016-3, CK, 2777-1, FERR #### [facility] CLIA [id number] [address] [place] [address] [place] CBC W Auto Differential pane l (Bld)on 02-23-2022 Basophils (Bld) [#/Vol] 0.04 10*3/uL Normal <0.11 [facility] Comment on above: Order Comment: Speci men Type: BLOOD SPECIMEN Ordering Facility: [facility] Address: [address] [place] [address] Performed By: #### 5 7021-8 #### [facility] CLIA [id number] [address] [place] [address] [place] Basophils/100 WBC (Bld) 0.5 % Normal [facility] Comment on above: Order Comment: Speci men Type: BLOOD SPECIMEN Ordering Facility: [facility] Address: [address] [place] [address] Performed By: #### 5 7021-8 #### [facility] CLIA [id number] [address] [place] [address] [place] Differential cell count method Nom (Bld) Auto Normal [facility] Comment on above: Order Comment: Speci men Type: BLOOD SPECIMEN Ordering Facility: [facility] Address: [address] [place] [address] Performed By: #### 5 7021-8 #### [facility] IA [id number] [address] [place] [address] [place] Eosinophils (Bld) [#/Vol] 0.14 10*3/uL Normal <0.46 [facility] Comment on above: Order Comment: Speci men Type: BLOOD SPECIMEN Ordering Facility: [facility] Address: [address] [place] [address] Performed By: #### 5 7021-8 #### [facility] IA [id number] [address] [place] Eosinophils/100 WBC (Bld) 1.8 % Normal [facility] Comment on above: Order Comment: Speci men Type: BLOOD SPECIMEN Ordering Facility: [facility] Address: [address] [place] [address] Performed By: #### 5 7021-8 #### [facility] IA [id number] [address] [place] [address] [place] Erythrocyte distribution width (RBC) [Ratio] 12.1 % Normal 11.5-15.0 [facility] Comment on above: Order Comment: Speci men Type: BLOOD SPECIMEN Ordering Facility: [facility] Address: [address] [place], [place] [address] Performed By: #### 5 7021-8 #### [facility] CLIA [id number] [address] [place] Hematocrit (Bld) [Volume fraction] 34.0 % Low 36.0-46.0 [facility] Comment on above: Order Comment: Speci men Type: BLOOD SPECIMEN Ordering Facility: [facility] Address: [address] [place] [address] Performed By: #### 5 7021-8 #### [facility] CLIA [id number] [address] [place] [address] [place] Hemoglobin (Bld) [Mass/Vol] 11.4 g/dL Low 11.5-15.5 [facility] Comment on above: Order Comment: Speci men Type: BLOOD SPECIMEN Ordering Facility: [facility] Address: [address] [place] [address] Performed By: #### 5 7021-8 #### [facility] IA [id number] [address] [place] [address] [place] IMMATURE GRAN % 0.3 % Normal [facility] Comment on above: Order Comment: Speci men Type: BLOOD SPECIMEN Ordering Facility: [facility] Address: [address] [place] [address] Performed By: #### 5 7021-8 #### [facility] IA [id number] [address] [place] [address] [place] IMMATURE GRAN ABS <0.03 Normal <0.10 [facility] Comment on above: Order Comment: Speci men Type: BLOOD SPECIMEN Ordering Facility: [facility] Address: [address] [place] [address] Performed By: #### 5 7021-8 #### [facility] IA [id number] [address] [place] [address] [place] Lymphocytes (Bld) [#/Vol] 1.79 10*3/uL Normal 1.00-4.00 [facility] Comment on above: Order Comment: Speci men Type: BLOOD SPECIMEN Ordering Facility: [facility] Address: [address] [place] [address] Performed By: #### 5 7021-8 #### [facility] IA [id number] [address] [place] [address] [place] Lymphocytes/100 WBC (Bld) 23.3 % Normal [facility] Comment on above: Order Comment: Speci men Type: BLOOD SPECIMEN Ordering Facility: [facility] Address: [address] [place] [address] Performed By: #### 5 7021-8 #### [facility] IA [id number] [address] [place] MCH (RBC) [Entitic mass] 30.1 pg Normal 26.0-34.0 [facility] Comment on above: Order Comment: Speci men Type: BLOOD SPECIMEN Ordering Facility: [facility] Address: [address] [place] [address] Performed By: #### 5 7021-8 #### [facility] IA [id number] [place] [address] [place] MCHC (RBC) [Mass/Vol] 33.5 g/dL Normal 30.5-36.0 [facility] Comment on above: Order Comment: Speci men Type: BLOOD SPECIMEN Ordering Facility: [facility] Address: [address] [place] [address] Performed By: #### 5 7021-8 #### [facility] IA [id number] [address] [place] [address] [place] MCV (RBC) [Entitic vol] 89.7 fL Normal 80.0-100.0 [facility] Comment on above: Order Comment: Speci men Type: BLOOD SPECIMEN Ordering Facility: [facility] Address: [address] [place] [address] Performed By: #### 5 7021-8 #### [facility] IA [id number] [address] [place] [address] [place] Monocytes (Bld) [#/Vol] 0.56 10*3/uL Normal <0.87 [facility] Comment on above: Order Comment: Speci men Type: BLOOD SPECIMEN Ordering Facility: [facility] Address: [address] [place] [address] Performed By: #### 5 7021-8 #### [facility] IA [id number] [place] [address] [place] Monocytes/100 WBC (Bld) 7.3 % Normal [facility] Comment on above: Order Comment: Speci men Type: BLOOD SPECIMEN Ordering Facility: [facility] Address: [address] Performed By: #### 5 7021-8 #### [facility] IA [id number] [address] [place] [address] [place] Neutrophils (Bld) [#/Vol] 5.12 10*3/uL Normal 1.45-7.50 [facility] Comment on above: Order Comment: Speci men Type: BLOOD SPECIMEN Ordering Facility: [facility] Address: [address] [place], [place] [address] Performed By: #### 5 7021-8 #### [facility] IA [id number] [address] [place] [address] [place] Neutrophils/100 WBC (Bld) 66.8 % Normal [facility] Comment on above: Order Comment: Speci men Type: BLOOD SPECIMEN Ordering Facility: [facility] Address: [address] [place], [place] [address] Performed By: #### 5 7021-8 #### [facility] IA [id number] [address] [place] [address] [place] Nucleated RBC (Bld) [#/Vol] 10*3/uL Normal <0.01 [facility] Comment on above: Order Comment: Speci men Type: BLOOD SPECIMEN Ordering Facility: [facility] Address: [address] [place], [place] [address] Performed By: #### 5 7021-8 #### [facility] IA [id number] [address] [place] [address] [place] Nucleated RBC/100 WBC (Bld) [Ratio] 0.0 /100 WBC Normal [facility] Comment on above: Order Comment: Speci men Type: BLOOD SPECIMEN Ordering Facility: [facility] Address: [address] [place], [place] [address] Performed By: #### 5 7021-8 #### [facility] IA [id number] [address] [place] [address] [place] Platelet mean volume (Bld) [Entitic vol] 9.6 fL Normal 9.0-12.7 [facility] Comment on above: Order Comment: Speci men Type: BLOOD SPECIMEN Ordering Facility: [facility] Address: [address] [place], [place] [address] Performed By: #### 5 7021-8 #### [facility] CLIA [id number] [address] [place] [address] [place] Platelets (Bld) [#/Vol] 299 10*3/uL Normal 150-400 [facility] Comment on above: Order Comment: Speci men Type: BLOOD SPECIMEN Ordering Facility: [facility] Address: [address] [place], [place] [address] Performed By: #### 5 7021-8 #### [facility] CLIA [id number] [address] [place] [address] [place] RBC (Bld) [#/Vol] 3.79 10*6/uL Low 3.90-5.20 [facility] Comment on above: Order Comment: Speci men Type: BLOOD SPECIMEN Ordering Facility: [facility] Address: [address] [place], [place] [address] Performed By: #### 5 7021-8 #### [facility] IA [id number] [address] [place] [address] [place] WBC (Bld) [#/Vol] 7.67 10*3/uL Normal 3.70-11.00 [facility] Comment on above: Order Comment: Speci men Type: BLOOD SPECIMEN Ordering Facility: [facility] Address: [address] [place], [place] [address] Performed By: #### 5 7021-8 #### [facility] CLIA [id number] [address] [place] [address] [facility] [place] CK CREATINE KINASEon 022 CK [Catalytic activity/Vol] 330 U/L High 42-196 [facility] Comment on above: Order Comment: Speci men Type: BLOOD SPECIMEN Ordering Facility: [facility] Address: [address] [place] [address] Performed By: #### 3 016-3, CK, 2777-1, FERR #### [facility] CLIA [id number] [address] [place] [address] [place] CYSTATIN Con 02-23-2022 Cystatin C [Mass/Vol] 1.41 mg/L High 0.61-0.95 [facility] Comment on above: Order Comment: Speci men Type: BLOOD SPECIMEN Ordering Facility: [facility] Address: [address] [place] [address] Performed By: #### 3 016-3, CK, 2777-1, FERR #### [facility] CLIA [id number] [address] [place] CYSTATIN C EGFR 43 mL/min/1.73m??? Low >=60 [facility] Comment on above: Order Comment: John joseph Type: BLOOD SPECIMEN Ordering Facility: [facility] Address: [address] [place] [address] Result Comment: Regina mated Glomerular Filtration Rate (eGFR) is calculated using the 2012 CKD-EPI cystatin C equation. This equation utilizes serum cystatin C, sex, and age as parameters. The cystatin C assay has traceable calibration to the ERM-DA471/[facility] reference material. Refer to KDIGO guidelines for clinical interpretation. In patients with unstable renal function, e.g. those with acute kidney injury, the eGFR may not accurately reflect actual GFR. Performed By: #### 3 016-3, BEVERLEY, 2777-, FERR #### [facility] CLIA [id number] [address] [place] [address] [place] Comprehensive metabolic 2000 panelon 02-23-2022 Albumin [Mass/Vol] 4.7 g/dL Normal 3.9-4.9 [facility] Comment on above: Order Comment: John joseph Type: BLOOD SPECIMEN Ordering Facility: [facility] Address: [address] [place] [address] Performed By: #### B 12, 2284-8 #### [facility] CLIA [id number] [address] [place] [address] [place] ALP [Catalytic activity/Vol] 87 U/L Normal 34-123 [facility] Comment on above: Order Comment: Speci men Type: BLOOD SPECIMEN Ordering Facility: [facility] Address: [address] Performed By: #### B 4-8 #### [facility] CLIA [id number] [address] [place] [address] [place] ALT [Catalytic activity/Vol] 21 U/L Normal 7-38 [facility] Comment on above: Order Comment: Speci men Type: BLOOD SPECIMEN Ordering Facility: [facility] Address: [address] [place], [place] [address] Performed By: #### B 2283-8 #### [facility] CLIA [id number] [address] [place] [address] [place] Anion gap [Moles/Vol] 11 mmol/L Normal 9-18 [facility] Comment on above: Order Comment: Speci men Type: BLOOD SPECIMEN Ordering Facility: [facility] Address: [address] [place], [place] [address] Performed By: #### B 2283-8 #### [facility] CLIA [id number] [address] [place] [address] [place] AST [Catalytic activity/Vol] 28 U/L Normal 13-35 [facility] Comment on above: Order Comment: Speci men Type: BLOOD SPECIMEN Ordering Facility: [facility] Address: [address] [place], [place] [address] Performed By: #### B 4-8 #### [facility] CLIA [id number] [address] [place] [address] [place] Bilirubin [Mass/Vol] 0.6 mg/dL Normal 0.2-1.3 [facility] Comment on above: Order Comment: Speci men Type: BLOOD SPECIMEN Ordering Facility: [facility] Address: [address] [place], [place] [address] Performed By: #### B 4-8 #### [facility] CLIA [id number] [address] [place] [address] [place] Calcium [Mass/Vol] 10.6 mg/dL High 8.5-10.2 [facility] Comment on above: Order Comment: Speci men Type: BLOOD SPECIMEN Ordering Facility: [facility] Address: [address] [place], [place] [address] Performed By: #### B 2283-8 #### [facility] CLIA [id number] [address] [place] [address] [place] Chloride [Moles/Vol] 86 mmol/L Low 97-105 [facility] Comment on above: Order Comment: Speci men Type: BLOOD SPECIMEN Ordering Facility: [facility] Address: [address] [place], [place] [address] Performed By: #### 2283-8 #### [facility] IA [id number] [address] [place] [address] [place] CO2 [Moles/Vol] 23 mmol/L Normal 22-30 [facility] Comment on above: Order Comment: Speci men Type: BLOOD SPECIMEN Ordering Facility: [facility] Address: [address] [place] [address] Performed By: #### B 4-8 #### [facility] CLIA [id number] [address] [place] [address] [place] Creatinine [Mass/Vol] 1.08 mg/dL High 0.58-0.96 [facility] Comment on above: Order Comment: Speci men Type: BLOOD SPECIMEN Ordering Facility: [facility] Address: [address] [place] [phone] Performed By: #### B 4-8 #### [facility] CLIA [id number] [address] [place] [address] [place] ESTIMATED GLOMERULAR FILTRATION RATE 53 mL/min/1.73m??? Low >=60 [facility] Comment on above: Order Comment: John joseph Type: BLOOD SPECIMEN Ordering Facility: [facility] Address: [address] [id number] Result Comment: Regina mated Glomerular Filtration Rate (eGFR) is calculated using the 2020 CKD-EPI creatinine equation. This equation utilizes serum creatinine, sex, and age as parameters. The creatinine assay has traceable calibration to isotope dilution-mass spectrometry. Refer to KDIGO guidelines for clinical interpretation. In patients with unstable renal function, e.g. those with acute kidney injury, the eGFR may not accurately reflect actual GFR. Performed By: #### B , 2284-8 #### [facility] CLIA [id number] [address] [facility] [place] [address] [place] Glucose [Mass/Vol] 93 mg/dL Normal 74-99 [facility] Comment on above: Order Comment: John joseph Type: BLOOD SPECIMEN Ordering Facility: [facility] Address: [address] Result Comment: The [place] [employer] (ADA) provides guidance for cutoff [...] Standards of Medical Care in Diabetes 2016, [place] [employer]. Diabetes Care. 2016.39(Suppl 1). Performed By: #### B 2284-8 #### [facility] CLIA [id number] [facility] [place] [address] [place] Potassium [Moles/Vol] 4.4 mmol/L Normal 3.7-5.1 [facility] Comment on above: Order Comment: John joseph Type: BLOOD SPECIMEN Order[facility] Facility: [facility] Address: [address] [phone] Performed By: #### B 2284-8 #### [facility] CLIA [id number] [address] [place] [address] [place] Protein [Mass/Vol] 7.5 g/dL Normal 6.3-8.0 [facility] Comment on above: Order Comment: Speci men Type: BLOOD SPECIMEN Ordering Facility: [facility] Address: [address] [place] [address] Performed By: #### B 4-8 #### [facility] CLIA [id number] [address] [place] [address] [place] Sodium [Moles/Vol] 120 mmol/L Low 136-144 [facility] Comment on above: Order Comment: Speci men Type: BLOOD SPECIMEN Ordering Facility: [facility] Address: [address] [place] [address] Performed By: #### B 4-8 #### [facility] CLIA [id number] [address] [place] [address] [place] Urea nitrogen [Mass/Vol] 19 mg/dL Normal 7-21 [facility] Comment on above: Order Comment: Speci men Type: BLOOD SPECIMEN Order[facility] Facility: [facility] Address: [address] [place] [address] Performed By: #### B 4-8 #### [facility] CLIA [id number] [address] [place] [address] [place] Cryoglobulin [Mass/Vol]on CRYOGLOBULIN, QUALITATIVE Negative Normal Negative [facility] Comment on above: Order Comment: Speci men Type: BLOOD SPECIMEN Ordering Facility: [facility] Address: [address] [place] [address] Result Comment: This test was developed and its performance characteristics determined by [facility]ology [facility] Medicine [place] ([facility]). It has not been cleared or approved by the FDA. [facility] is regulated under CLIA as qualified to perform high-complexity testing. This test is used for clinical purposes. It should not be regarded as investigational or for research. Performed By: #### 2 168-3 #### [facility] CLIA [id number] [address] [place], [place] [address] [place] FERRITIN BLDon 02-23-2022 Ferritin [Mass/Vol] 169.7 ng/mL Normal 14.7-205.1 [facility] Comment on above: Order Comment: [facility]cul[facility]es [facility] Type: BLOOD SPECIMEN Order[facility] Facility: [facility] Address: [address] [place] [address] Performed By: #### 3 016-3, CK, 2777-1, FERR #### [facility] CLIA [id number] [address] [place] [address] [place] Folate SerPl-mCncon 02-24-20 22 Folate [Mass/Vol] ng/mL Normal >4.7 [facility] Comment on above: Order Comment: Speculisses [facility] Type: BLOOD SPECIMEN Order[facility] Facility: [facility] Address: [address] [place] [address] Result Comment: A re sult of > 20 ng/mL is not necessarily indicative of a pathologic or treatable condition: it reflects a limitation of the test methodology. Assay reference range: 4.8 to 24.2 ng/mL. Suitable for detection of folate deficiency. Reference: Folate III (Folate III) [package insert V 1.0 Jordanian]. [facility], [place], [place]: July 2015. Performed By: #### B 12, 2284-8 #### [facility] CLIA [id number] [address] [place] [address] [place] GBM IGG AUTOANTIBODYon 02-23 GBM IGG AB, (BEAD) 0 AU/mL Normal 0-19 [facility] Comment on above: Order Comment: [facility] Type: BLOOD SPECIMEN Order[facility] Facility: [facility] Address: [address] [place] [address] Result Comment: INTE RPRETIVE INFORMATION: GBM Ab, IgG by Multiplex Bead Assay 19 AU/mL or Less ......... Negative 20-25 AU/mL .............. Equivocal 26 AU/mL or Greater ...... Positive The presence of anti-glomerular basement membrane (GBM) antibodies by Multiplex Bead Assay may aid in the diagnosis of Goodpasture syndrome. False positive results may occur due to reactivity against other chains of type IV collagen. If Multiplex Bead Assay is negative but there is a strong suspicion for disease, renal biopsy may be indicated. A renal biopsy may also be essential in suspected Goodpasture disease with renal involvement, allowing diagnostic confirmation and assessment of renal prognosis. Performed By: [facility] [address] [place] [address] Visual Lead: Shabnam Meredith MD Performed By: #### 3 016-3, CK, 2777-1, FERR #### [facility] CLIA [id number] [address] [place] HBV core Ab Ser Qlon 022 HBV core Ab Ql (S) Negative Normal Negative [facility] Comment on above: Order Comment: Speci men Type: BLOOD SPECIMEN Ordering Facility: [facility] Address: [address] [place] [address] Result Comment: No e vidence of current or past infection with Hepatitis B virus. Should recent infection be suspected, repeat testing may be considered 3-4 weeks after this draw. Performed By: #### B 12, 2284-8 #### [facility] CLIA [id number] [address] [place] HBV surface Ab IA Ql (S)on 0 02-23-2022 HBV surface Ag Ql (S) Negative Normal Negative [facility] Comment on above: Order Comment: Speci [facility] Type: BLOOD SPECIMEN Ordering Facility: [facility] Address: [address] [place] [address] Performed By: #### B , 2284-8 #### [facility] CLIA [id number] [address] [place], [place] [address] [place] [address] [place] HBV surface Ab Ser Qlon 06-0 HBV surface Ab Ql (S) Negative Normal Negative [facility] Comment on above: Order Comment: Speci [facility] Type: BLOOD SPECIMEN Ordering Facility: [facility] Address: [address] [place] [address] Result Comment: No e vidence of current or past infection with Hepatitis B virus. Should recent infection be suspected, repeat testing may be considered 3-4 weeks after this draw. Performed By: #### B 4-8 #### [facility] CLIA [id number] [address] [place] [id number] [place] [address] [place] HCV Ab Ser Qlon 02-23-2022 HCV Ab Ql (S) Negative Normal [facility] Comment on above: Order Comment: John opal Type: BLOOD SPECIMEN Ordering Facility: [facility] Address: [address] [place] [address] Result Comment: The result suggests no evidence of active infection with Hepatitis C virus. Should recent infection be suspected, repeat testing may be considered 4-6 weeks after this draw. Performed By: #### B 4-8 #### [facility] CLIA [id number] [address] [place], [place] [id number] [place] IRON + TIBCon 02-23-2022 Iron [Mass/Vol] 69 ug/dL Normal 41-186 [facility] Comment on above: Order Comment: John joseph Type: BLOOD SPECIMEN Ordering Facility: [facility] Address: [address] [place] [address] Performed By: #### B 4-8 #### [facility] CLIA [id number] [address] [place] [address] [place] Iron binding capacity [Mass/Vol] 309 ug/dL Normal 232-386 [facility] Comment on above: Order Comment: John opal Type: BLOOD SPECIMEN Ordering Facility: [facility] Address: [address] [place] [address] Performed By: #### B 4-8 #### [facility] CLIA [id number] [address] [place] [address] [address] [place] Iron/TIBC [Molar ratio] 22 % Normal 15-57 [facility] Comment on above: Order Comment: Speci men Type: BLOOD SPECIMEN Ordering Facility: [facility] Address: [address] [place] [address] Performed By: #### B 12, 2284-8 #### [facility] CLIA [id number] [facility] [place] [address] [place] KAPPA/RAYMODN,FREE,SERon 2021 Immunoglobulin light chains.kappa.free (S) [Mass/Vol] 24.7 mg/L High 3.3-19.4 [facility] Comment on above: Order Comment: Speci men Type: BLOOD SPECIMEN Ordering Facility: [facility] Address: [address] [place] [address] Performed By: #### K LFRS #### [facility] CLIA [id number] [address] [place] [address] [place] Immunoglobulin light chains.kappa/Immunoglo bulin light chains.lambda (S) [Mass ratio] 0.86 Normal 0.26-1.65 [facility] Comment on above: Order Comment: Speci men Type: BLOOD SPECIMEN Ordering Facility: [facility] Address: [address] [place] [address] Performed By: #### K LFRS #### [facility] CLIA [id number] [address] [place] [address] [place] Immunoglobulin light chains.lambda.free [Mass/Vol] 28.8 mg/L High 5.7-26.3 [facility] Comment on above: Order Comment: Speci men Type: BLOOD SPECIMEN Ordering Facility: [facility] Address: [address] [place] [address] Performed By: #### K LFRS #### [facility] CLIA [id number] [address] [place] [address] [place] LDH SerPl-cCncon 02-23-2022 LDH [Catalytic activity/Vol] 218 U/L High 135-214 [facility] Comment on above: Order Comment: Speci men Type: BLOOD SPECIMEN Ordering Facility: [facility] Address: [address] [place] [address] Performed By: #### B 12, 2284-8 #### [facility] CLIA [id number] [address] [place] [address] [place] PROTEIN ELECTROPHORESIS SERU M (P)on 02-23-2022 Albumin [Mass/Vol] 4.33 g/dL High 3.37-4.23 [facility] Comment on above: Order Comment: Speci men Type: BLOOD SPECIMEN Ordering Facility: [facility] Address: [address] [place] [address] Performed By: #### L [id number] #### [facility] CLIA [id number] [address] [place] [address] [place] Alpha 1 globulin Elph [Mass/Vol] 0.27 g/dL Normal 0.18-0.31 [facility] Comment on above: Order Comment: Speci men Type: BLOOD SPECIMEN Ordering Facility: [facility] Address: [address] [place] [address] Performed By: #### L [id number] #### [facility] CLIA [id number] [address] [place] [address] [place] Alpha 2 globulin Elph [Mass/Vol] 0.72 g/dL Normal 0.52-0.97 [facility] Comment on above: Order Comment: Speci men Type: BLOOD SPECIMEN Ordering Facility: [facility] Address: [address] [place], [place] [id number] Performed By: #### L [id number] #### [facility] CLIA [id number] [address] [place] [address] [place] Beta globulin Elph [Mass/Vol] 1.00 g/dL Normal 0.84-1.36 [facility] Comment on above: Order Comment: Speci men Type: BLOOD SPECIMEN Ordering Facility: [facility] Address: [address] [place], [place] [id number] Performed By: #### L [id number] #### [facility] CLIA [id number] [address] [place] [address] Gamma globulin Elph (Body fld) [Mass fraction] 0.98 g/dL Normal 0.70-1.44 [facility] Comment on above: Order Comment: Speci men Type: BLOOD SPECIMEN Ordering Facility: [facility] Address: [address] [place], [place] [id number] Performed By: #### L [id number] #### [facility] CLIA [id number] [address] [place] [address] [place] M-PROTEIN LOCATION Normal [facility] Comment on above: Order Comment: Speci men Type: BLOOD SPECIMEN Ordering Facility: [facility] Address: [address] [place] [address] Result Comment: Not Applicable. Performed By: #### L [id number] #### [facility] CLIA [id number] [address] [place] [address] Protein Fractions [Interp] No definitive M protein is identified on protein electrophoresis. Normal No definitive M protein is identified on protein electrophores is. [facility] Comment on above: Order Comment: Speci men Type: BLOOD SPECIMEN Ordering Facility: [facility] Address: [address] [place], [place] [id number] Performed By: #### L [id number] #### [facility] CLIA [id number] [address] [place] [address] [place] Protein.monoclonal Elph [Mass/Vol] 0.00 g/dL Normal <=0.00 [facility] Comment on above: Order Comment: Speci men Type: BLOOD SPECIMEN Ordering Facility: [facility] Address: [address] [place], [place] [id number] Performed By: #### L [id number] #### [facility] CLIA [id number] [address] [place] [address] [place] SPE STAFF REVIEW Reviewed by Amaya Tompkins MD [facility] Comment on above: Order Comment: Speci men Type: BLOOD SPECIMEN Ordering Facility: [facility] Address: [address] [place], [place] [id number] Performed By: #### L [id number] #### [facility] CLIA [id number] [address] [place] [id number] PTH INTACT BLDon 02-23-2022 Parathyrin.intact [Mass/Vol] 96 pg/mL High 15-65 [facility] Comment on above: Order Comment: Speci men Type: BLOOD SPECIMEN Ordering Facility: [facility] Address: [address] [place], [place] [id number] Performed By: #### 3 016-3, CK, 2777-1, FERR #### [facility] CLIA [id number] [address] [place], [place] [id number] [place] [address] [place] Phosphate SerPl-mCncon 02-23 Phosphate [Mass/Vol] 3.0 mg/dL Normal 2.7-4.8 [facility] Comment on above: Order Comment: Speci men Type: BLOOD SPECIMEN Ordering Facility: [facility] Address: [address] [place], [place] [id number] Performed By: #### 3 016-3, CK, 2777-1, FERR #### [facility] CLIA [id number] [address] [place] [address] [place] Prot SerPl-mCncon 02-23-2022 Protein [Mass/Vol] 7.3 g/dL Normal 6.3-8.0 [facility] Comment on above: Order Comment: Speci men Type: BLOOD SPECIMEN Ordering Facility: [facility] Address: [address] [place], [place] [id number] Performed By: #### B 12, 2284-8 #### [facility] CLIA [id number] [address] [place] [address] [place] TSH SerPl-aCncon 02-23-2022 TSH Qn 0.955 m[IU]/L Normal 0.270-4.200 [facility] Comment on above: Order Comment: Speci men Type: BLOOD SPECIMEN Ordering Facility: [facility] Address: [facility] [place] [address] Performed By: #### 3 016-3, CK, 2777-1, FERR #### [facility] CLIA [id number] [address] [place] [address] [place] Transferrin SerPl-mCncon Transferrin [Mass/Vol] 255 mg/dL Normal 200-360 [facility] Comment on above: Order Comment: Speci men Type: BLOOD SPECIMEN Ordering Facility: [facility] Address: [address] [place] [address] Performed By: #### 3 016-3, CK, 2777-1, FERR #### [facility] CLIA [id number] [address] [place] [address] [place] Urate SerPl-mCncon Urate [Mass/Vol] 7.0 mg/dL High 2.5-6.6 [facility] Comment on above: Order Comment: Speci men Type: BLOOD SPECIMEN Ordering Facility: [facility] Address: [address] [place] [address] Performed By: #### B 12, 2284-8 #### [facility] CLIA [id number] [address] [place] [address] [place] VITAMIN B12 BLOODon 02-24-20 22 Cobalamin (Vitamin B12) [Mass/Vol] 428 pg/mL Normal 232-1,245 [facility] Comment on above: Order Comment: Speci men Type: BLOOD SPECIMEN Ordering Facility: [facility] Address: [address] [place] [address] Performed By: #### B 2284-8 #### [facility] CLIA [id number] [address] [place] [address] [place] CALCIUM IONIZED Bon 01-13-20 22 Calcium.ionized (Bld) [Mass/Vol] 1.49 mmol/L High 1.08 - 1.30 mmol/L [facility] Calcium.ionized adjusted to pH 7.4 (Bld) [Moles/Vol] 1.42 mmol/L High 1.08 - 1.30 mmol/L [facility] CBC W Auto Differential pane l (Bld)on 01-12-2022 Abs Immature Gran <0.03 <0.10 k/uL [facility] Basophils (Bld) [#/Vol] 0.05 10*3/uL <0.11 k/uL [facility] Basophils/100 WBC (Bld) 0.7 % [facility] Differential cell count method Nom (Bld) Auto [facility] Eosinophils (Bld) [#/Vol] 0.26 10*3/uL <0.46 k/uL [facility] Eosinophils/100 WBC (Bld) 3.4 % [facility] Erythrocyte distribution width (RBC) [Ratio] 12.8 % 11.5 - 15.0 % [facility] Hematocrit (Bld) [Volume fraction] 36.7 % 36.0 - 46.0 % [facility] Hemoglobin (Bld) [Mass/Vol] 12.2 g/dL 11.5 - 15.5 g/dL [facility] Immature Gran % 0.3 % [facility] Lymphocytes (Bld) [#/Vol] 1.59 10*3/uL 1.00 - 4.00 k/uL [facility] Lymphocytes/100 WBC (Bld) 20.8 % [facility] MCH (RBC) [Entitic mass] 30.7 pg 26.0 - 34.0 pg [facility] MCHC (RBC) [Mass/Vol] 33.2 g/dL 30.5 - 36.0 g/dL [facility] MCV (RBC) [Entitic vol] 92.4 fL 80.0 - 100.0 fL [facility] Monocytes (Bld) [#/Vol] 0.61 10*3/uL <0.87 k/uL [facility] Monocytes/100 WBC (Bld) 8.0 % [facility] Neutrophils (Bld) [#/Vol] 5.10 10*3/uL 1.45 - 7.50 k/uL [facility] Neutrophils/100 WBC (Bld) 66.8 % [facility] Nucleated RBC (Bld) [#/Vol] 10*3/uL <0.01 k/uL [facility] Nucleated RBC/100 WBC (Bld) [Ratio] 0.0 /100 WBC [facility] Platelet mean volume (Bld) [Entitic vol] 10.0 fL 9.0 - 12.7 fL [facility] Platelets (Bld) [#/Vol] 281 10*3/uL 150 - 400 k/uL [facility] RBC (Bld) [#/Vol] 3.97 10*6/uL 3.90 - 5.2 0 m/uL [facility] WBC (Bld) [#/Vol] 7.63 10*3/uL 3.70 - 11. 00 k/uL [facility] Comprehensive metabolic 2000 panelon 01-12-2022 Albumin [Mass/Vol] 4.8 g/dL 3.9 - 4.9 g/dL [facility] ALP [Catalytic activity/Vol] 90 U/L 34 - 123 U/L [facility] ALT [Catalytic activity/Vol] 16 U/L 7 - 38 U/L [facility] Anion gap [Moles/Vol] 12 mmol/L 9 - 18 mmol/L [facility] AST [Catalytic activity/Vol] 24 U/L 13 - 35 U/L [facility] Bilirubin [Mass/Vol] 0.5 mg/dL 0.2 - 1 .3 mg/dL [facility] Calcium [Mass/Vol] 11.5 mg/dL High 8.5 - 10. 2 mg/dL [facility] Chloride [Moles/Vol] 101 mmol/L 97 - 10 5 mmol/L [facility] CO2 [Moles/Vol] 23 mmol/L 22 - 30 mmol/L [facility] Creatinine [Mass/Vol] 1.46 mg/dL High 0.58 - 0.96 mg/dL [facility] Estimated Glomerular Filtration Rate 37 mL/min/1.73m Low >=60 mL/min/1.73m [facility] Glucose [Mass/Vol] 92 mg/dL 74 - 99 mg/dL [facility] Potassium [Moles/Vol] 4.9 mmol/L 3.7 - 5.1 mmol/L [facility] Protein [Mass/Vol] 7.6 g/dL 6.3 - 8.0 g/dL [facility] Sodium [Moles/Vol] 136 mmol/L 136 - 144 mmol/L [facility] Urea nitrogen [Mass/Vol] 29 mg/dL High 7 - 21 mg/dL [facility] PTH INTACT BLDon 01-12-2022 Parathyrin.intact [Mass/Vol] 58 pg/mL 15 - 65 pg/mL [facility] CT Abdomen and Pelvis WO con traston 01-04-2022 Interpretation and review of laboratory results Abnormal [facility] Radiology Result ACTIONABLE Abnormal [facility] Comment on above: This report contains an incidental or actionable finding. This is a new finding that is separate from the reason your provider ordered the imaging test. Because of this incidental or actionable finding, you may need another imaging test to evaluate it. Please contact your provider for the next steps. IMPRESSION: 1. Focal wall thickening involving right mid abdominal jejunal loops with associated interloop ascites, suggestive of enteritis. Correlation with clinical symptoms is suggested. If warranted, consideration could be given to further assessment with contrast-enhanced CT of the abdomen/pelvis. 2. No evidence of metastatic disease within the limitations of a noncontrast examination. 3. No lymphadenopathy. ACTIONABLE RESULT: FOLLOW-UP Acuity: Actionable Findings: Digestive Tract Routing Code: GI_1 Recommendation: CT ABD/PEL (W ORAL) W IVCON Time Frame: At the discretion of the clinical team. COMMUNICATION: Results will be communicated with the ordering provider via [facility] staff message or phone message by [facility] Support [facility] within 2 business days of report finalization. Algorithms for management of incidental imaging findings can be found on the [facility] Intranet Sharepoint site at: [email or web address] l%20Findi ngs%20at%20Imaging/For ms/[email or web address] Transcribe Date/Time: Jan 04 2022 2:22P Dictated by: RAFA DOMINGUEZ MD This examination was interpreted and the report reviewed and electronically signed by: RAFA DOMINGUEZ MD on Jan 04 2022 2:53PM EST Thank you for allowing us to participate in the care of your patient. Should there be any questions regarding this interpretation, please call [phone]. If you are unable to reach us at the number above, please feel free to contact [facility] at [phone]. ZZZ_DO_NOT_US E_DIVISION OF RADIOLOGY * * *Final Report* * * DATE OF EXAM: Jan 04 2022 11:10AM [facility] 0531 - CT ABD/PEL WO IVCON / PROCEDURE REASON: multiple diagnoses * * * * Physician Interpretation * * * * RESULT: EXAMINATION: CT ABDOMEN AND PELVIS WITHOUT IV CONTRAST CLINICAL HISTORY: Malignant neoplasm of the rectum. TECHNIQUE: Non-IV contrast imaging of the abdomen and pelvis was performed using standard technique, scanning from just above the dome of the diaphragm to the symphysis pubis. Unenhanced imaging is limited for the evaluation of some intra-abdominal and pelvic pathology. MQ: CTAPWO_3 Contrast: IV: None Oral: 900 ml of 50ML Omnipaque [address] Radiation dose: Integrated Dose-length product (DLP) for this visit = 1455 mGy*cm. CT Dose Reduction Employed: Automated exposure control (AEC) COMPARISON: CT abdomen and pelvis 06/09/2020 and 03/08/2020 RESULT: The absence of intravenous contrast precludes optimal evaluation of the solid and hollow viscera. Abdomen / Pelvis: Liver: Unremarkable. Biliary: No biliary ductal dilatation. The gallbladder is absent. Spleen: No splenomegaly. Pancreas: Unremarkable. Adrenals: No mass. Kidneys: There is no nephrolithiasis or hydronephrosis. A right renal cyst measures 1.7 cm. 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 There is no evidence of bowel obstruction. There is circumferential wall thickening along several right mid abdominal jejunal loops, suggestive of enteritis. There is a small volume of interloop ascites within this region, as well (series 2, image 60-65). There is no pneumatosis, portal venous gas or free air. Lymph Nodes: There are no enlarged lymph nodes. Mesentery/peritoneum: No ascites. Retroperitoneum: No mass. Vasculature: Arterial atherosclerotic disease without aneurysm. Pelvis: No mass or ascites. Bones/Soft Tissues: No acute abnormality. Lower thorax: A chest CT performed will be reported separately. Crab Butcher (topogram) images: No additional findings. ZZZ_DO_NOT_US E_DIVISION OF RADIOLOGY Provider, [facility] - 01/04/2022 * * *Final Report* * * DATE OF EXAM: Jan 04 2022 11:10AM [facility] 0531 - CT ABD/PEL WO IVCON / PROCEDURE REASON: multiple diagnoses * * * * Physician Interpretation * * * * RESULT: EXAMINATION: CT ABDOMEN AND PELVIS WITHOUT IV CONTRAST CLINICAL HISTORY: Malignant neoplasm of the rectum. TECHNIQUE: Non-IV contrast imaging of the abdomen and pelvis was performed using standard technique, scanning from just above the dome of the diaphragm to the symphysis pubis. Unenhanced imaging is limited for the evaluation of some intra-abdominal and pelvic pathology. MQ: CTAPWO_3 Contrast: IV: None Oral: 900 ml of 50ML Omnipaque [address] Radiation dose: Integrated Dose-length product (DLP) for this visit = 1455 mGy*cm. CT Dose Reduction Employed: Automated exposure control (AEC) COMPARISON: CT abdomen and pelvis 06/09/2020 and 03/08/2020 RESULT: The absence of intravenous contrast precludes optimal evaluation of the solid and hollow viscera. Abdomen / Pelvis: Liver: Unremarkable. Biliary: No biliary ductal dilatation. The gallbladder is absent. Spleen: No splenomegaly. Pancreas: Unremarkable. Adrenals: No mass. Kidneys: There is no nephrolithiasis or hydronephrosis. A right renal cyst measures 1.7 cm. 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 There is no evidence of bowel obstruction. There is circumferential wall thickening along several right mid abdominal jejunal loops, suggestive of enteritis. There is a small volume of interloop ascites within this region, as well (series 2, image 60-65). There is no pneumatosis, portal venous gas or free air. Lymph Nodes: There are no enlarged lymph nodes. Mesentery/peritoneum: No ascites. Retroperitoneum: No mass. Vasculature: Arterial atherosclerotic disease without aneurysm. Pelvis: No mass or ascites. Bones/Soft Tissues: No acute abnormality. Lower thorax: A chest CT performed will be reported separately. Crab Butcher (topogram) images: No additional findings. IMPRESSION IMPRESSION: 1. Focal wall thickening involving right mid abdominal jejunal loops with associated interloop ascites, suggestive of enteritis. Correlation with clinical symptoms is suggested. If warranted, consideration could be given to further assessment with contrast-enhanced CT of the abdomen/pelvis. 2. No evidence of metastatic disease within the limitations of a noncontrast examination. 3. No lymphadenopathy. ACTIONABLE RESULT: FOLLOW-UP Acuity: Actionable Findings: Digestive Tract Routing Code: GI_1 Recommendation: CT ABD/PEL (W ORAL) W IVCON Time Frame: At the discretion of the clinical team. COMMUNICATION: Results will be communicated with the ordering provider via [facility] staff message or phone message by [facility] within 2 business days of report finalization. Algorithms for management of incidental imaging findings can be found on the [facility] Intranet Sharepoint site at: [email or web address]%20Incidenta l%20Findi ngs%20at%20Imaging/For ms/[email or web address] Transcribe Date/Time: Jan 04 2022 2:22P Dictated by: RAFA DOMINGUEZ MD This examination was interpreted and the report reviewed and electronically signed by: RAFA DOMINGUEZ MD on Jan 04 2022 2:53PM EST Thank you for allowing us to participate in the care of your patient. Should there be any questions regarding this interpretation, please call [phone]. If you are unable to reach us at the number above, please feel free to contact [facility]iology at [phone]. [facility] CT Chest WO contraston 01-04 IMPRESSION: 1. Again seen are scattered small noncalcified pulmonary nodules which are overall nonspecific. The majority are unchanged, however there are at least two new nodules (since 03/08/2020) measuring 0.3-0.4 cm within the right middle lobe and right lower lobe. These may represent sites of small airways inflammation or mucous plugging. Continued attention on subsequent studies is suggested. 2. No lymphadenopathy. 3. Please refer to concurrently acquired and separately reported abdomen CT for findings related to the upper abdomen. Transcribe Date/Time: Jan 04 2022 2:36P Dictated by: RAFA DOMINGUEZ MD This examination was interpreted and the report reviewed and electronically signed by: RAFA DOMINGUEZ MD on Jan 04 2022 2:49PM EST Thank you for allowing us to participate in the care of your patient. Should there be any questions regarding this interpretation, please call [phone]. If you are unable to reach us at the number above, please feel free to contact [facility] at [phone]. ZZZ_DO_NOT_US E_DIVISION OF RADIOLOGY * * *Final Report* * * DATE OF EXAM: Jan 04 2022 11:10AM [facility] 0541 - CT CHEST WO IVCON / PROCEDURE REASON: multiple diagnoses * * * * Physician Interpretation * * * * RESULT: EXAMINATION: CHEST CT WITHOUT CONTRAST CLINICAL HISTORY: Lung nodules. Malignant neoplasm of the rectum. Technique: Spiral CT acquisition of the chest from the thoracic inlet to the upper abdomen without contrast. MQ: CTCWO_6 CT Radiation dose: Integrated Dose-length product (DLP) for this visit = 1455 mGy*cm CT Dose Reduction Employed: Automated exposure control (AEC) Comparison: CT chest 03/08/2020; 09/01/2019 and 09/03/2018 RESULT: Limitations: None. Lines, tubes, and devices: None. Lung parenchyma and airways: There is no airspace consolidation. The central tracheobronchial tree is patent. Again seen are scattered small noncalcified pulmonary nodules, with bank representative examples detailed as follows on series 3: -Image 92, along the right major fissure (likely intrapulmonary lymph node), 0.3 cm (unchanged) -Image 106, right middle lobe, 0.4 cm (unchanged) -Image 90, left lower lobe, 0.3 cm (unchanged) -Image 59, left upper lobe, 0.4 cm (unchanged) -Image 99, right middle lobe, 0.4 cm (new) -Image 99, right lower lobe, 0.3 cm (new) Pleural space: No pleural effusion. No pleural thickening. Lower neck, lymph nodes, and mediastinum: Unchanged heterogeneous nodularity of the thyroid. No lymphadenopathy in the supraclavicular, axillary, mediastinal, or hilar regions. Heart, pericardium, and thoracic vessels: The thoracic aorta and main pulmonary artery are normal in caliber. The cardiac chambers are normal in size. Coronary artery atherosclerotic calcifications are noted, although the study is not optimized for coronary assessment. No pericardial effusion or thickening. Bones and soft tissues: Degenerative changes involve the thoracic spine. No destructive lytic or blastic osseous abnormalities are identified. Upper abdomen: Please refer to concurrently acquired and separately reported abdomen CT for findings related to the upper abdomen. Crab Butcher (topogram) images: No additional findings. ZZZ_DO_NOT_US E_DIVISION OF RADIOLOGY Provider, [facility] - 01/04/2022 * * *Final Report* * * DATE OF EXAM: Jan 04 2022 11:10AM [facility] 0541 - CT CHEST WO IVCON / PROCEDURE REASON: multiple diagnoses * * * * Physician Interpretation * * * * RESULT: EXAMINATION: CHEST CT WITHOUT CONTRAST CLINICAL HISTORY: Lung nodules. Malignant neoplasm of the rectum. Technique: Spiral CT acquisition of the chest from the thoracic inlet to the upper abdomen without contrast. MQ: CTCWO_6 CT Radiation dose: Integrated Dose-length product (DLP) for this visit = 1455 mGy*cm CT Dose Reduction Employed: Automated exposure control (AEC) Comparison: CT chest 03/08/2020; 09/01/2019 and 09/03/2018 RESULT: Limitations: None. Lines, tubes, and devices: None. Lung parenchyma and airways: There is no airspace consolidation. The central tracheobronchial tree is patent. Again seen are scattered small noncalcified pulmonary nodules, with bank representative examples detailed as follows on series 3: -Image 92, along the right major fissure (likely intrapulmonary lymph node), 0.3 cm (unchanged) -Image 106, right middle lobe, 0.4 cm (unchanged) -Image 90, left lower lobe, 0.3 cm (unchanged) -Image 59, left upper lobe, 0.4 cm (unchanged) -Image 99, right middle lobe, 0.4 cm (new) -Image 99, right lower lobe, 0.3 cm (new) Pleural space: No pleural effusion. No pleural thickening. Lower neck, lymph nodes, and mediastinum: Unchanged heterogeneous nodularity of the thyroid. No lymphadenopathy in the supraclavicular, axillary, mediastinal, or hilar regions. Heart, pericardium, and thoracic vessels: The thoracic aorta and main pulmonary artery are normal in caliber. The cardiac chambers are normal in size. Coronary artery atherosclerotic calcifications are noted, although the study is not optimized for coronary assessment. No pericardial effusion or thickening. Bones and soft tissues: Degenerative changes involve the thoracic spine. No destructive lytic or blastic osseous abnormalities are identified. Upper abdomen: Please refer to concurrently acquired and separately reported abdomen CT for findings related to the upper abdomen. Crab Butcher (topogram) images: No additional findings. IMPRESSION IMPRESSION: 1. Again seen are scattered small noncalcified pulmonary nodules which are overall nonspecific. The majority are unchanged, however there are at least two new nodules (since 03/08/2020) measuring 0.3-0.4 cm within the right middle lobe and right lower lobe. These may represent sites of small airways inflammation or mucous plugging. Continued attention on subsequent studies is suggested. 2. No lymphadenopathy. 3. Please refer to concurrently acquired and separately reported abdomen CT for findings related to the upper abdomen. Transcribe Date/Time: Jan 04 2022 2:36P Dictated by: RAFA DOMINGUEZ MD This examination was interpreted and the report reviewed and electronically signed by: RAFA DOMINGUEZ MD on Jan 04 2022 2:49PM EST Thank you for allowing us to participate in the care of your patient. Should there be any questions regarding this interpretation, please call [phone]. If you are unable to reach us at the number above, please feel free to contact [facility] eRadiology at [phone]. [facility] CT Chest WO contrastOrdered By: Ccf Provider on 01-04-2022 [facility] No Panel Informationon 01-04 Radiology Study observation (narrative) [facility] Vital Signs Date Time Vital Sign Value Performing Clinician Facility 02-28-2025 10:42-0400 Body height 154.94 cm [facility] 02-28-2025 10:42-0400 Body mass index (BMI) [Ratio] 32.2 kg/m2 [facility] 02-28-2025 10:42-0400 Body temperature 97.9 [degF] [facility] 02-28-2025 10:42-0400 Body weight 77.33 kg [facility] 02-28-2025 10:42-0400 Diastolic blood pressure 70 mm[Hg] [facility] 02-28-2025 10:42-0400 Heart rate 68 /min [facility] 02-28-2025 10:42-0400 Respiratory rate 19 /min [facility] 02-28-2025 10:42-0400 SaO2% (BldA) [Mass fraction] 98 % [facility] 02-28-2025 10:42-0400 Systolic blood pressure 130 mm[Hg] [facility] 10-09-2024 10:22-0500 Body height 154.9 cm Logan Gomez MD Work Phone: [facility] 10-09-2024 10:22-0500 Body mass index (BMI) [Ratio] 31.74 kg/m2 Logan Gomez MD Work Phone: [facility] 10-09-2024 10:22-0500 Body temperature 97.5 [degF] Logan Gomez MD Work Phone: [facility] 10-09-2024 10:22-0500 Body weight 76.2 kg Logan Gomez MD Work Phone: [facility] 10-09-2024 10:22-0500 Diastolic blood pressure 70 mm[Hg] Logan Gomez MD Work Phone: [facility] 10-09-2024 10:22-0500 Heart rate 79 /min Logan Gomez MD Work Phone: [facility] 10-09-2024 10:22-0500 Respiratory rate 20 /min Logan Gomez MD Work Phone: [facility] 10-09-2024 10:22-0500 SaO2% (BldA) [Mass fraction] 98 % Logan Gomez MD Work Phone: [facility] 10-09-2024 10:22-0500 Systolic blood pressure 160 mm[Hg] Logan Gomez MD Work Phone: [facility] 10-01-2024 10:21-0500 Body height 154.94 cm [facility] 10-01-2024 10:21-0500 Body mass index (BMI) [Ratio] 31.4 kg/m2 [facility] 10-01-2024 10:21-0500 Body temperature 97.6 [degF] [facility] 10-01-2024 10:21-0500 Body weight 75.46 kg [facility] 10-01-2024 10:21-0500 Diastolic blood pressure 80 mm[Hg] [facility] 10-01-2024 10:21-0500 Heart rate 76 /min [facility] 10-01-2024 10:21-0500 Respiratory rate 16 /min [facility] 10-01-2024 10:21-0500 SaO2% (BldA) [Mass fraction] 100 % [facility] 10-01-2024 10:21-0500 Systolic blood pressure 155 mm[Hg] [facility] 09-01-2024 12:21-0500 Body temperature 97.59 [degF] Ma Sand Work Phone: [facility] 09-01-2024 12:21-0500 Diastolic blood pressure 74 mm[Hg] Ma Sand Work Phone: [facility] 09-01-2024 12:21-0500 Heart rate 75 /min Ma Sand Work Phone: [facility] 09-01-2024 12:21-0500 Respiratory rate 18 /min Ma Sand Work Phone: [facility] 09-01-2024 12:21-0500 SaO2% (BldA) [Mass fraction] 99 % Ma Sand Work Phone: [facility] 09-01-2024 12:21-0500 Systolic blood pressure 168 mm[Hg] Ma Sand Work Phone: [facility] 08-05-2024 10:38-0500 Body temperature 97.5 [degF] Ma Sand Work Phone: [facility] 08-05-2024 10:38-0500 Diastolic blood pressure 73 mm[Hg] Ma Sand Work Phone: [facility] 08-05-2024 10:38-0500 Heart rate 74 /min Ma Sand Work Phone: [facility] 08-05-2024 10:38-0500 Respiratory rate 16 /min Ma Sand Work Phone: [facility] 08-05-2024 10:38-0500 SaO2% (BldA) [Mass fraction] 97 % Ma Sand Work Phone: [facility] 08-05-2024 10:38-0500 Systolic blood pressure 152 mm[Hg] Ma Sand Work Phone: [facility] 07-31-2024 09:36-0500 Body height 156.2 cm Arnol Daugherty MD Work Phone: [facility] 07-31-2024 09:36-0500 Body mass index (BMI) [Ratio] 30.99 kg/m2 Arnol Daugherty MD Work Phone: [facility] 07-31-2024 09:36-0500 Body temperature 97 [degF] Arnol Daugherty MD Work Phone: [facility] 07-31-2024 09:36-0500 Body weight 75.6 kg Arnol Daugherty MD Work Phone: [facility] 07-31-2024 09:36-0500 Diastolic blood pressure 76 mm[Hg] Arnol Daugherty MD Work Phone: [facility] 07-31-2024 09:36-0500 Heart rate 81 /min Arnol Daugherty MD Work Phone: [facility] 07-31-2024 09:36-0500 Respiratory rate 16 /min Arnol Daugherty MD Work Phone: [facility] 07-31-2024 09:36-0500 SaO2% (BldA) [Mass fraction] 100 % Arnol Daugherty MD Work Phone: [facility] 07-31-2024 09:36-0500 Systolic blood pressure 157 mm[Hg] Arnol Daugherty MD Work Phone: [facility] 07-15-2024 11:00-0400 Body mass index (BMI) [Ratio] 31.59 kg/m2 Logan Gomez MD Work Phone: [facility] 07-15-2024 11:00-0400 Body temperature 97.81 [degF] Logan Gomez MD Work Phone: [facility] 07-15-2024 11:00-0400 Body weight 75.84 kg Logan Gomez MD Work Phone: [facility] 07-15-2024 11:00-0400 Diastolic blood pressure 76 mm[Hg] Logan Gomez MD Work Phone: [facility] 07-15-2024 11:00-0400 Heart rate 67 /min Logan Gomez MD Work Phone: [facility] 07-15-2024 11:00-0400 SaO2% (BldA) [Mass fraction] 98 % Logan Gomez MD Work Phone: [facility] 07-15-2024 11:00-0400 Systolic blood pressure 142 mm[Hg] Logan Gomez MD Work Phone: [facility] 03-25-2024 13:54-0400 Body height 154.94 cm [facility] 03-25-2024 13:54-0400 Body mass index (BMI) [Ratio] 32.7 kg/m2 [facility] 03-25-2024 13:54-0400 Body temperature 96.9 [degF] [facility] 03-25-2024 13:54-0400 Body weight 78.58 kg [facility] 03-25-2024 13:54-0400 Diastolic blood pressure 82 mm[Hg] [facility] 03-25-2024 13:54-0400 Heart rate 71 /min [facility] 03-25-2024 13:54-0400 Respiratory rate 18 /min [facility] 03-25-2024 13:54-0400 SaO2% (BldA) [Mass fraction] 97 % [facility] 03-25-2024 13:54-0400 Systolic blood pressure 164 mm[Hg] [facility] 02-15-2024 14:02-0400 Body height 154.94 cm [facility] 02-15-2024 14:02-0400 Body mass index (BMI) [Ratio] 31.7 kg/m2 [facility] 02-15-2024 14:02-0400 Body temperature 97.3 [degF] [facility] 02-15-2024 14:02-0400 Body weight 76.2 kg [facility] 02-15-2024 14:02-0400 Diastolic blood pressure 71 mm[Hg] [facility] 02-15-2024 14:02-0400 Heart rate 67 /min [facility] 02-15-2024 14:02-0400 Respiratory rate 18 /min [facility] 02-15-2024 14:02-0400 SaO2% (BldA) [Mass fraction] 98 % [facility] 02-15-2024 14:02-0400 Systolic blood pressure 156 mm[Hg] [facility] 02-13-2024 13:43-0400 Body height 154.94 cm [facility] 02-13-2024 13:43-0400 Body mass index (BMI) [Ratio] 31.7 kg/m2 [facility] 02-13-2024 13:43-0400 Body temperature 97.3 [degF] [facility] 02-13-2024 13:43-0400 Body weight 76.2 kg [facility] 02-13-2024 13:43-0400 Diastolic blood pressure 74 mm[Hg] [facility] 02-13-2024 13:43-0400 Heart rate 70 /min [facility] 02-13-2024 13:43-0400 Respiratory rate 18 /min [facility] 02-13-2024 13:43-0400 SaO2% (BldA) [Mass fraction] 98 % [facility] 02-13-2024 13:43-0400 Systolic blood pressure 148 mm[Hg] [facility] 08-07-2023 11:00-0500 Body height 160.02 cm Olaf Sanabrias Other [facility] Other 08-07-2023 11:00-0500 Body mass index (BMI) [Ratio] 31.42 kg/m2 Olaf Sanabrias Other [facility] 08-07-2023 11:00-0500 Body temperature 96.9 [degF] Olaf Sanabrias Other [facility] Other 08-07-2023 11:00-0500 Body weight 80.47 kg Olaf Sanabrias Other [facility] Other 08-07-2023 11:00-0500 Diastolic blood pressure 79 mm[Hg] Azjackie Sanabrias Other [facility] Other 08-07-2023 11:00-0500 Respiratory rate 18 /min Olaf Sanabrias Other [facility] Other 08-07-2023 11:00-0500 SaO2% (BldA) [Mass fraction] 98 % Olaf Sanabrias Other [facility] Other 08-07-2023 11:00-0500 Systolic blood pressure 159 mm[Hg] Olaf Sanabrias Other [facility] Other 08-02-2023 13:54-0500 Body height 156.2 cm Arnol Daugherty MD Work Phone: [facility] 08-02-2023 13:54-0500 Body temperature 97.59 [degF] Arnol Daugherty MD Work Phone: [facility] 08-02-2023 13:54-0500 Body weight 78.2 kg Arnol Daugherty MD Work Phone: [facility] 08-02-2023 13:54-0500 Diastolic blood pressure 70 mm[Hg] Arnol Daugherty MD Work Phone: [facility] 08-02-2023 13:54-0500 Heart rate 78 /min Arnol Daugherty MD Work Phone: [facility] 08-02-2023 13:54-0500 Respiratory rate 18 /min Arnol Daugherty MD Work Phone: [facility] 08-02-2023 13:54-0500 SaO2% (BldA) [Mass fraction] 98 % Arnol Daugherty MD Work Phone: [facility] 08-02-2023 13:54-0500 Systolic blood pressure 141 mm[Hg] Arnol Daugherty MD Work Phone: [facility] 01-25-2023 14:41-0400 Body height 156.2 cm Arnol Daugherty MD Work Phone: [facility] 01-25-2023 14:41-0400 Body temperature 97.81 [degF] Arnol Daugherty MD Work Phone: [facility] 01-25-2023 14:41-0400 Body weight 77.56 kg Arnol Daugherty MD Work Phone: [facility] 01-25-2023 14:41-0400 Diastolic blood pressure 75 mm[Hg] Arnol Daugherty MD Work Phone: [facility] 01-25-2023 14:41-0400 Heart rate 85 /min Arnol Daugherty MD Work Phone: [facility] 01-25-2023 14:41-0400 Respiratory rate 16 /min Arnol Daugherty MD Work Phone: [facility] 01-25-2023 14:41-0400 SaO2% (BldA) [Mass fraction] 98 % Arnol Daugherty MD Work Phone: [facility] 01-25-2023 14:41-0400 Systolic blood pressure 147 mm[Hg] Arnol Daugherty MD Work Phone: [facility] 12-25-2022 11:35-0400 Body height 160.02 cm Donna Fariasmond Other [facility] Other 12-25-2022 11:35-0400 Body mass index (BMI) [Ratio] 30.47 kg/m2 Donna Leora Other [facility] Other 12-25-2022 11:35-0400 Body temperature 98.5 [degF] Donna Fariasmond Other [facility] Other 12-25-2022 11:35-0400 Body weight 78.02 kg Donna Leora Other [facility] Other 12-25-2022 11:35-0400 Diastolic blood pressure 78 mm[Hg] Donna Leora Other [facility] Other 12-25-2022 11:35-0400 Respiratory rate 18 /min Donna Leora Other [facility] Other 12-25-2022 11:35-0400 SaO2% (BldA) [Mass fraction] 99 % Donna Leora Other [facility] Other 12-25-2022 11:35-0400 Systolic blood pressure 174 mm[Hg] Donna Leora Other [facility] Other 08-29-2022 10:44-0500 Body height 156.2 cm Ghazala Humphrey MD Work Phone: [facility] 08-29-2022 10:44-0500 Body weight 76.66 kg Ghazala Humphrey MD Work Phone: [facility] 08-29-2022 10:44-0500 Diastolic blood pressure 68 mm[Hg] Ghazala Humphrey MD Work Phone: [facility] 08-29-2022 10:44-0500 Heart rate 70 /min Ghazala Humphrey MD Work Phone: [facility] 08-29-2022 10:44-0500 Systolic blood pressure 147 mm[Hg] Ghazala Humphrey MD Work Phone: [facility] 07-27-2022 11:11-0400 Body height 154.9 cm Arnol Daugherty MD Work Phone: [facility] 07-27-2022 11:11-0400 Body temperature 97.59 [degF] Arnol Daugherty MD Work Phone: [facility] 07-27-2022 11:11-0400 Body weight 76.2 kg Arnol Daugherty MD Work Phone: [facility] 07-27-2022 11:11-0400 Diastolic blood pressure 72 mm[Hg] Arnol Daugherty MD Work Phone: [facility] 07-27-2022 11:11-0400 Heart rate 73 /min Arnol Daugherty MD Work Phone: [facility] 07-27-2022 11:11-0400 Respiratory rate 16 /min Arnol Daugherty MD Work Phone: [facility] 07-27-2022 11:11-0400 SaO2% (BldA) [Mass fraction] 99 % Arnol Daugherty MD Work Phone: [facility] 07-27-2022 11:11-0400 Systolic blood pressure 165 mm[Hg] Arnol Daugherty MD Work Phone: [facility] 07-04-2022 16:55-0400 Body height 154.9 cm Arash Cavazos MD Work Phone: [facility] 07-04-2022 16:55-0400 Body weight 76.2 kg Arash Cavazos MD Work Phone: [facility] 07-04-2022 16:55-0400 Diastolic blood pressure 66 mm[Hg] Arash Cavazos MD Work Phone: [facility] 07-04-2022 16:55-0400 Heart rate 62 /min Arash Cavazos MD Work Phone: [facility] 07-04-2022 16:55-0400 Systolic blood pressure 171 mm[Hg] Arash Cavazos MD Work Phone: [facility] 05-23-2022 11:15-0400 Body weight 76.39 kg Ghazala Humphrey MD Work Phone: [facility] 05-23-2022 11:15-0400 Diastolic blood pressure 72 mm[Hg] Ghazala Humphrey MD Work Phone: [facility] 05-23-2022 11:15-0400 Heart rate 79 /min Ghazala Humphrey MD Work Phone: [facility] 05-23-2022 11:15-0400 Systolic blood pressure 154 mm[Hg] Ghazala Humphrey MD Work Phone: [facility] 03-24-2022 14:30-0400 Body temperature 98.01 [degF] Chair Dubois Work Phone: [facility] 03-24-2022 14:30-0400 Diastolic blood pressure 75 mm[Hg] Chair Marko Work Phone: [facility] 03-24-2022 14:30-0400 Heart rate 70 /min Chair Marko Work Phone: [facility] 03-24-2022 14:30-0400 Respiratory rate 16 /min Chair Marko Work Phone: [facility] 03-24-2022 14:30-0400 Systolic blood pressure 175 mm[Hg] Chair Marko Work Phone: [facility] 03-22-2022 10:01-0400 Body height 157.6 cm Arnol Daugherty MD Work Phone: [facility] 03-22-2022 10:01-0400 Body temperature 97.11 [degF] Arnol Daugherty MD Work Phone: [facility] 03-22-2022 10:01-0400 Body weight 77.66 kg Arnol Daugherty MD Work Phone: [facility] 03-22-2022 10:01-0400 Diastolic blood pressure 66 mm[Hg] Arnol Daugherty MD Work Phone: [facility] 03-22-2022 10:01-0400 Heart rate 84 /min Arnol Daugherty MD Work Phone: [facility] 03-22-2022 10:01-0400 Respiratory rate 16 /min Arnol Daugherty MD Work Phone: [facility] 03-22-2022 10:01-0400 SaO2% (BldA) [Mass fraction] 100 % Arnol Daugherty MD Work Phone: [facility] 03-22-2022 10:01-0400 Systolic blood pressure 132 mm[Hg] Arnol Daugherty MD Work Phone: [facility] 01-12-2022 10:16-0400 Body height 157.6 cm Arnol Daugherty MD Work Phone: [facility] 01-12-2022 10:16-0400 Body temperature 97.39 [degF] Arnol Daugherty MD Work Phone: [facility] 01-12-2022 10:16-0400 Body weight 80.47 kg Arnol Daugherty MD Work Phone: [facility] 01-12-2022 10:16-0400 Diastolic blood pressure 77 mm[Hg] Arnol Daugherty MD Work Phone: [facility] 01-12-2022 10:16-0400 Heart rate 74 /min Arnol Daugherty MD Work Phone: [facility] 01-12-2022 10:16-0400 Respiratory rate 16 /min Arnol Daugherty MD Work Phone: [facility] 01-12-2022 10:16-0400 SaO2% (BldA) [Mass fraction] 98 % Arnol Daugherty MD Work Phone: [facility] 01-12-2022 10:16-0400 Systolic blood pressure 179 mm[Hg] Arnol Daugherty MD Work Phone: [facility] Encounters Encounter Date Encounter Type Care Provider Facility Start: 02-28-2025 End: 02-28-2025 ambulatory [facility] Work Phone: Start: 02-28-2025 End: 02-28-2025 Patient encounter procedure [facility] Work Phone: Start: 12-12-2024 End: 12-12-2024 ambulatory LOGAN GOMEZ Not Available Start: 10-09-2024 End: 10-09-2024 Bamboo flowsheet Logan Gomez MD Work Phone: [facility] Start: 10-09-2024 End: 10-09-2024 Bambelkyso flowsmohinder Gomez MD Work Phone: [facility] Start: 10-09-2024 End: 10-09-2024 Office outpatient visit 15 minutes Logan Gomez MD Work Phone: [facility] Comment on above: Dermatitis (Primary Dx); Essential hypertension (CMS/HCC); Stage 3b chronic kidney disease (CKD) (CMS/HCC) Start: 10-09-2024 End: 10-09-2024 ambulatory LOGAN GOMEZ Not Available Start: 10-01-2024 End: 10-01-2024 ambulatory [facility] Work Phone: Start: 10-01-2024 End: 10-01-2024 [facility] encounter [facility] Work Phone: Start: 09-25-2024 Non-patient / Non-visit [facility] Work Phone: Start: 09-25-2024 End: 09-25-2024 ambulatory AZIZ BAKHOUS Facility:[facility] Start: 09-25-2024 End: 09-25-2024 Clinisync Result Encounter Generic External Data Provider [facility] External Department Unsolicited Start: 09-25-2024 End: 09-25-2024 Clinisync Result Encounter Generic External Data Provider [facility] External Department Unsolicited Start: 09-01-2024 End: 09-01-2024 ambulatory ARNOL ABHYANKAR Facility:[facility] Start: 09-01-2024 End: 09-01-2024 Nursing evaluation of patient and report Chadwick No Work Phone: Hematology/Oncology Comment on above: 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); Other vitamin B12 deficiency anemia; Malignant neoplasm of colon, unspecified part of colon (HCC); Hydronephrosis of left kidney; Hypercalcemia Start: 08-05-2024 End: 08-05-2024 ambulatory LOGAN GOMEZ Facility:[facility] Start: 08-05-2024 End: 08-05-2024 Nursing evaluation of patient and report Chadwick No Work Phone: Hematology/Oncology Comment on above: 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); Other vitamin B12 deficiency anemia; Malignant neoplasm of colon, unspecified part of colon (HCC); Hydronephrosis of left kidney; Hypercalcemia Start: 07-31-2024 End: 07-31-2024 Clinisync Result Encounter Generic External Data Provider [facility] External Department Unsolicited Start: 07-31-2024 End: 07-31-2024 Clinisync Result Encounter Generic External Data Provider [facility] External Department Unsolicited Start: 07-31-2024 End: 08-04-2024 Telephone encounter Arnol Daugherty MD Work Phone: [facility] Comment on above: Results Start: 07-31-2024 End: 07-31-2024 Office outpatient visit 25 minutes Arnol Daugherty MD Work Phone: Hematology/Oncology Comment on above: 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 cer (Primary Dx); Stage 3b chronic kidney disease (HCC); Megaloblastic anemia due to vitamin B12 deficiency Start: 07-31-2024 End: 07-31-2024 ambulatory LOGAN GOMEZ Facility:[facility] Start: 07-15-2024 End: 07-15-2024 Bamboo flowsheet Logan Gomez MD Work Phone: [facility] Start: 07-15-2024 End: 07-15-2024 Bamboo flowsheet Logan Gomez MD Work Phone: [facility] Start: 07-15-2024 End: 07-15-2024 Patient encounter procedure Logan Gomez MD Work Phone: [facility] Work Phone: Start: 07-15-2024 End: 07-15-2024 Postop follow up visit related to original px Logan Gomez MD Work Phone: [facility] Comment on above: Medicare annual well ness visit, subsequent (Primary Dx); Essential hypertension (CMS/HCC); Stage 3b chronic kidney disease (CKD) (CMS/HCC); Aneurysm of ascending aorta without rupture (CMS/HCC); Hyperparathyroidism (CMS/HCC) Start: 07-15-2024 End: 07-15-2024 ambulatory LOGAN GOMEZ Not Available Start: 06-09-2024 End: 06-09-2024 Refill Logan Gomez MD Work Phone: [facility] Comment on above: Essential (primary) hypertension (CMS/HCC) Start: 03-25-2024 End: 03-25-2024 ambulatory [facility] Work Phone: Start: 03-25-2024 End: 03-25-2024 Patient encounter procedure [facility] Neph[facility] Work Phone: Start: 03-10-2024 Non-patient / Non-visit [facility] Work Phone: Start: 03-10-2024 End: 03-10-2024 ambulatory LOGAN GOMEZ Facility:[facility] Start: 02-26-2024 End: 02-26-2024 ambulatory LOGAN GOMEZ Not Available Start: 02-15-2024 End: 02-15-2024 ambulatory [facility] Work Phone: Start: 02-15-2024 End: 02-15-2024 Patient encounter procedure [facility] Work Phone: Start: 02-13-2024 End: 02-13-2024 ambulatory [facility] Work Phone: Start: 02-13-2024 End: 02-13-2024 Patient encounter procedure [facility] Work Phone: Start: 08-07-2023 End: 08-07-2023 [facility] [employer] Other Start: 08-07-2023 Office outpatient vi sit 25 minutes Azjackie Bakprimos [facility] Start: 08-02-2023 End: 08-02-2023 Office outpatient visit 25 minutes Arnol Daugherty MD Work Phone: Hematology/Oncology Comment on above: 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 cer (Primary Dx); Hyperparathyroid (HCC); Hypercalcemia; Stage 3b chronic kidney disease (HCC); Anemia, unspecified type Start: 07-31-2023 End: 07-31-2023 ambulatory Alan Adams Facility:[facility] Start: 07-31-2023 End: 07-31-2023 ambulatory MD Logan Gomez Work Phone: [facility] Work Phone: Start: 07-31-2023 End: 07-31-2023 Patient encounter procedure MD Logan Gomez Work Phone: [facility] [place] Work Phone: Start: 07-04-2023 Telephone encounter Facundo Burnett Hematology/Oncology Comment on above: Appointment Start: 05-19-2023 Refill Arnol rodriguez MD Work Phone: Hematology/Oncology Comment on above: Refill Request Start: 02-05-2023 ambulatory Ghazala Humphrey MD Work Phone: Endocrinology Comment on above: Test results Start: 02-05-2023 E-mail encounter fro m caregiver Ghazala Humphrey MD Work Phone: GONZALES DONG [facility] Start: 01-25-2023 End: 01-25-2023 Office outpatient visit 40 minutes Arnol Daugherty MD Work Phone: Hematology/Oncology Comment on above: Hypercalcemia (Prima ry Dx); Hyperparathyroid (HCC); 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cer; Functional diarrhea; Stage 3b chronic kidney disease (HCC) Start: 01-25-2023 Orders Only Olaf Pittman Work Phone: Hematology/Oncology Comment on above: Chronic kidney disea se (CKD) stage G3b/A1, moderately decreased glomerular filtration rate (GFR) between 30-44 mL/min/1.73 square meter and albuminuria creatinine ratio less than 30 mg/g (HCC) (Primary Dx); Renal hypertension; Anemia, unspecified type; Hyposmolality syndrome Start: 12-25-2022 End: 12-25-2022 ambulatory Donna Corey Other [place] Other Start: 12-25-2022 Office outpatient vi sit 15 minutes Donna Corey [facility] Start: 10-22-2022 Telephone encounter Ghazala lane MD Work Phone: Endocrinology Comment on above: Results Start: 09-28-2022 End: 09-28-2022 Subsequent hospital visit by physician [facility] Comment on above: Thyroid nodule [E04. 1] Start: 08-29-2022 End: 08-29-2022 Patient encounter procedure Ghazala Humphrey MD Work Phone: Endocrinology Comment on above: Hyperparathyroidism (HCC) (Primary Dx); Thyroid nodule; Hypercalcemia; Osteopenia of multiple sites Start: 07-27-2022 Telephone encounter Arnol walters MD Work Phone: Cancer [facility] Comment on above: Referral Information (Kidney Medicine) Start: 07-27-2022 End: 07-27-2022 ambulatory Arnol Daugherty MD Work Phone: Hematology/Oncology Comment on above: Malignant neoplasm o f colon, unspecified part of colon (HCC) (Primary Dx); Stage 3b chronic kidney disease (HCC); Hypercalcemia; Malignant neoplasm of rectum (HCC); Anemia, unspecified type Start: 07-27-2022 End: 07-27-2022 Patient encounter procedure Arnol Daugherty MD Work Phone: [place] Start: 07-26-2022 End: 07-26-2022 Subsequent hospital visit by physician Arrival Time Radiology Work Phone: Radiology [facility] Comment on above: Malignant neoplasm o f colon, unspecified part of colon (HCC) [C18.9] Start: 07-19-2022 End: 07-19-2022 Subsequent hospital visit by physician Arrival Time Radiology Work Phone: Radiology [facility] Comment on above: Cervicalgia [M54.2] Start: 07-14-2022 Telephone encounter Maribel De La Torre RN Work Phone: Hematology/Oncology Comment on above: Orders; Referral Req uest Start: 07-04-2022 End: 07-04-2022 ambulatory Arash Cavazos MD Work Phone: Kidney Medicine Comment on above: Chronic renal failur e, stage 3a (HCC) (Primary Dx); Hydronephrosis of left kidney; Renal cyst; Essential hypertension Start: 07-04-2022 End: 07-04-2022 Telemedicine consultation with patient Arash Cavazos MD Work Phone: [facility] Start: 05-24-2022 End: 05-24-2022 Subsequent hospital visit by physician [facility] Comment on above: Hypercalcemia [E83.5 2] Start: 05-23-2022 End: 05-23-2022 Patient encounter procedure Ghazala Humphrey MD Work Phone: Endocrinology Comment on above: Hyperparathyroidism (HCC) (Primary Dx); Hypercalcemia; Goiter Start: 05-18-2022 Refill Marylou harper [facility] Work Phone: Hematology/Oncology Comment on above: Refill Request Start: 04-26-2022 Telephone encounter Arash Cavazos MD Work Phone: Kidney [facility] Comment on above: Results Start: 04-25-2022 ambulatory Ludmila Nieto RT(R) Radiol ogy Comment on above: Radiology US Start: 04-25-2022 Patient encounter procedure Ludmila Hedirck ys RT(R) [facility] [place] [facility] Start: 04-25-2022 End: 04-25-2022 Subsequent hospital visit by physician [facility] Comment on above: Chronic renal failur e, stage 3b (HCC) [N18.32] Start: 03-30-2022 Telephone encounter Arash Cavazos MD Work Phone: Kidney [facility] Comment on above: Results Start: 03-24-2022 End: 03-24-2022 ambulatory Chair 21 Dubois Work Phone: Hematology/Oncology Comment on above: Chronic renal failur e, stage 3b (HCC) (Primary Dx); Hypercalcemia; Hydronephrosis of left kidney; Other vitamin B12 deficiency anemia; Malignant neoplasm of colon, unspecified part of colon (HCC); Malignant neoplasm of rectum (HCC) Start: 03-23-2022 ambulatory Arash Cavazos MD Work Phone: Kidney Medicine Comment on above: Reaction to Meds Start: 03-23-2022 Telephone encounter Mallory owen RN Work Phone: Hematology/Oncology Comment on above: Care Coordination (H ypercalcemia) Patient Update Start: 03-22-2022 End: 03-22-2022 ambulatory Arnol Daugherty MD Work Phone: Hematology/Oncology Comment on above: Chronic renal failur e, stage 3b (HCC) (Primary Dx); Hypercalcemia Start: 03-22-2022 End: 03-22-2022 Patient encounter procedure Arnol Daugherty MD Work Phone: [facility] Start: 03-21-2022 Telephone encounter Willow Mauro RN Hematology/Oncology Comment on above: Appointment Start: 01-26-2022 End: 01-26-2022 ambulatory Arnol Daugherty MD Work Phone: Hematology/Oncology Comment on above: Chronic renal failur e, stage 3b (HCC) (Primary Dx); Malignant neoplasm of colon, unspecified part of colon (HCC); Lung nodules Start: 01-26-2022 End: 01-26-2022 Telemedicine consultation with patient Arnol Daugherty MD Work Phone: [facility] Start: 01-24-2022 Telephone encounter Arnol walters MD Work Phone: [facility] Comment on above: Appointment Confirma tion Start: 01-19-2022 End: 01-19-2022 ambulatory Arnol Daugherty MD Work Phone: Hematology/Oncology Comment on above: Hypercalcemia (Prima ry Dx); Stage 3a chronic kidney disease (HCC); Malignant neoplasm of rectum (HCC) Start: 01-19-2022 End: 01-19-2022 Telemedicine consultation with patient Arnol Daugherty MD Work Phone: [facility] Start: 01-13-2022 Telephone encounter Arnol walters MD Work Phone: Cancer [facility] Comment on above: Appointment Start: 01-12-2022 End: 01-12-2022 ambulatory Arnol Daugherty MD Work Phone: Hematology/Oncology Comment on above: Malignant neoplasm o f rectum (HCC) (Primary Dx); Lung nodules; Encounter for screening mammogram for breast cancer; Stage 3a chronic kidney disease (HCC); Anemia, unspecified type; Hypercalcemia Start: 01-12-2022 End: 01-12-2022 Patient encounter procedure Arnol Daugherty MD Work Phone: [facility] Start: 01-09-2022 Telephone encounter Arnol walters MD Work Phone: Hematology/Oncology Comment on above: Lab Orders Start: 01-04-2022 End: 01-04-2022 Subsequent hospital visit by physician Arrival Time Radiology Work Phone: Radiology Pet CT Comment on above: Lung nodules [R91.8] Start: 08-02-2021 End: 08-03-2021 ambulatory NEELIMA PERKINS Facility:[facility] Start: 12-07-2020 End: 12-08-[address] SONJA LAM Facility:[facility] Start: 11-26-2020 End: 11-26-[address] LOGAN GOMEZ Facility:[facility] Start: 11-11-2020 End: 11-12-[address] DIANA STOCK Facility:[facility] Procedures Date Procedure Procedure Detail Performing Clinician Start: 09-25-2024 [facility] CBC PNL BLD AUTO Ge neric External Data Provider Start: 07-31-2024 [facility] CBC W AUTO DIFF BLD Generic External Data Provider Start: 09-28-2022 Us soft tissue head & neck real time imge sean Humphrey MD Work Phone: Start: 07-26-2022 Ct abdomen & pelvis w/contrast material Arnol Daugherty MD Work Phone: Start: 07-26-2022 Ct thorax w/contrast material Arnol Daugherty MD Work Phone: Start: 07-19-2022 Ct soft tissue neck w/o contrast material Ace Savage APRN.CNP Work Phone: Start: 05-24-2022 Dxa bone density margareth dy 1/> sites axial skel Ghazala Humphrey MD Work Phone: Start: 04-25-2022 Us retroperitoneal r eal time w/image complete Arash Cavazos MD Work Phone: Start: 03-24-2022 Comprehensive metabo lic panel Arnol Daugherty MD Work Phone: Start: 01-11-2022 Adult depression scr eening assessment Arnol Daugherty MD Work Phone: Start: 01-04-2022 Ct abdomen & pelvis w/o contrast material Arnol Daugherty MD Work Phone: Start: 01-04-2022 Ct thorax w/o contra st material rAnol Daugherty MD Work Phone: Start: 06-16-2020 Adult depression scr eening assessment Arnol Daugherty MD Work Phone: Plan of Treatment Date Care Activity Detail Author Start: 07-31-2027 Diabetes Screening Diabetes Screening [facility] Start: 03-10-2027 Diabetes Screening Diabetes Screening [facility] Start: 07-26-2026 Diabetes Screening Diabetes Screening [facility] Start: 01-25-2026 DIABETES SCREEN DIABETES SCREEN [facility] Start: 01-25-2026 Diabetes Screening Diabetes Screening [facility] Start: 07-31-2025 End: 07-31-2025 CBC W Auto Differential panel - Blood COMPLETE BLOOD COUNT AND DIFFERENTIAL Lab Routine 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cer Stage 3b chronic kidney disease (HCC) Expected: 07/31/2025 (Approximate), Expires: 07/31/2025 [facility] Work Phone: Comment on above: Expected: 07/31/2025 (Approximate), Expi res: 07/31/2025 Start: 07-31-2025 End: 07-31-2025 Cobalamin (Vitamin B12) [Mass/volume] in Serum or Plasma VITAMIN B12 Lab Routine 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cer Stage 3b chronic kidney disease (HCC) Expected: 07/31/2025 (Approximate), Expires: 07/31/2025 [facility] Comment on above: Expected: 07/31/2025 (Approximate), Expi res: 07/31/2025 Start: 07-31-2025 Complete blood count Hemoglobin/Hematocrit [facility] Start: 07-31-2025 End: 07-31-2025 Comprehensive metabolic 2000 panel - Serum or Plasma COMPREHENSIVE METABOLIC PANEL Lab Routine 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cer Stage 3b chronic kidney disease (HCC) Expected: 07/31/2025 (Approximate), Expires: 07/31/2025 [facility] Comment on above: Expected: 07/31/2025 (Approximate), Expi res: 07/31/2025 Start: 07-31-2025 Creatinine measurement Serum Creatinine [facility] Start: 07-31-2025 End: 10-30-2025 Erythropoietin (EPO) [Units/volume] in Serum or Plasma ERYTHROPOIETIN/EPO Lab Routine 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cer Stage 3b chronic kidney disease (HCC) Expected: 07/31/2025 (Approximate), Expires: 10/30/2025 [facility] Comment on above: Expected: 07/31/2025 (Approximate), Expi res: 10/30/2025 Start: 07-31-2025 End: 07-31-2025 Ferritin [Mass/volume] in Serum or Plasma FERRITIN Lab Routine 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cer Stage 3b chronic kidney disease (HCC) Expected: 07/31/2025 (Approximate), Expires: 07/31/2025 [facility] Comment on above: Expected: 07/31/2025 (Approximate), Expi res: 07/31/2025 Start: 07-31-2025 End: 07-31-2025 Folate [Mass/volume] in Serum or Plasma FOLATE, SERUM Lab Routine 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cer Stage 3b chronic kidney disease (HCC) Expected: 07/31/2025 (Approximate), Expires: 07/31/2025 [facility] Comment on above: Expected: 07/31/2025 (Approximate), Expi res: 07/31/2025 Start: 07-31-2025 End: 07-31-2025 Iron and Iron binding capacity panel - Serum or Plasma IRON AND TIBC Lab Routine 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cer Stage 3b chronic kidney disease (HCC) Expected: 07/31/2025 (Approximate), Expires: 07/31/2025 [facility] Comment on above: Expected: 07/31/2025 (Approximate), Expi res: 07/31/2025 Start: 07-30-2025 End: 07-30-2025 Follow-up encounter 07/30/2025 10:00 AM EST Visit (SP) Office Hematology/Oncology [address] [place] [address] Arnol Daugherty MD [address] [place] [address] 1 year follow up Hematology/Oncolog y Comment on above: 1 year follow up Start: 07-26-2025 DIABETES SCREEN DIABETES SCREEN [facility] Start: 07-23-2025 End: 07-23-2025 Patient encounter procedure 07/23/2025 9:00 AM EDT Office Visit [facility] [address] [place] [address] 1 year follow up [facility] Comment on above: 1 year follow up Start: 07-15-2025 Medicare Annual Wellness (AWV) Medicare Annual Wellness (AWV) [facility] Start: 03-24-2025 DIABETES SCREEN DIABETES SCREEN [facility] Start: 03-22-2025 DIABETES SCREEN DIABETES SCREEN [facility] Start: 03-10-2025 Complete blood count Hemoglobin/Hematocrit [facility] Start: 03-10-2025 Creatinine measurement Serum Creatinine [facility] Start: 02-23-2025 DIABETES SCREEN DIABETES SCREEN [facility] Start: 01-17-2025 DIABETES SCREEN DIABETES SCREEN [facility] Start: 01-13-2025 End: 01-13-2025 Patient encounter procedure 01/13/2025 10:00 AM EDT Office Visit [facility] [address] [place] [address] Logan Gomez MD [address] [place] [address] [facility] Start: 01-12-2025 DIABETES SCREEN DIABETES SCREEN [facility] Start: 12-12-2024 End: 12-12-2024 Patient encounter procedure 12/12/2024 11:00 AM EDT Office Visit [facility] [address] [place] [phone] Logan Gomez MD [address] [place] [phone] [facility] Start: 10-09-2024 End: 10-09-2024 Patient encounter procedure 10/09/2024 10:00 AM EST Office Visit [facility] [address] [place] [phone] Logan Gomez MD [address] [place] [address] Arrived [facility] Comment on above: Arrived Start: 09-01-2024 End: 09-01-2024 Nursing evaluation of patient and report 09/01/2024 11:00 AM EST Nurse Visit Hematology/Oncology [address] [place] [address] [place] No Nurse Sebastian [address] [facility] [place] [address] B12 Injection Hematology/Oncolog y Comment on above: B12 Injection Start: 08-05-2024 End: 08-05-2024 Nursing evaluation of patient and report 08/05/2024 10:00 AM EST Nurse Visit Hematology/Oncology [address] [facility] [place] [address] [place] No Nurse Sebastian [address] [place] [address] B12 Injection Hematology/Oncolog y Comment on above: B12 Injection Start: 08-02-2024 End: 11-01-2024 Carcinoembryonic Ag [Mass/volume] in Serum or Plasma CEA BLD Lab Routine 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cer Anemia, unspecified type Expected: 08/02/2024 (Approximate), Expires: 11/01/2024 [facility] Work Phone: Comment on above: Expected: 08/02/2024 (Approximate), Expi res: 11/01/2024 Start: 08-02-2024 End: 08-02-2024 CBC W Auto Differential panel - Blood CBC + DIFF Lab Routine 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cer Anemia, unspecified type Expected: 08/02/2024 (Approximate), Expires: 08/02/2024 [facility] Work Phone: Comment on above: Expected: 08/02/2024 (Approximate), Expi res: 08/02/2024 Start: 08-02-2024 End: 08-02-2024 Cobalamin (Vitamin B12) [Mass/volume] in Serum or Plasma VITAMIN B12 BLOOD Lab Routine 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cer Anemia, unspecified type Expected: 08/02/2024 (Approximate), Expires: 08/02/2024 [facility] Work Phone: Comment on above: Expected: 08/02/2024 (Approximate), Expi res: 08/02/2024 Start: 08-02-2024 End: 08-02-2024 Comprehensive metabolic 2000 panel - Serum or Plasma COMP METABOLIC PANEL Lab Routine 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cer Anemia, unspecified type Expected: 08/02/2024 (Approximate), Expires: 08/02/2024 [facility] Work Phone: Comment on above: Expected: 08/02/2024 (Approximate), Expi res: 08/02/2024 Start: 08-02-2024 End: 08-02-2024 Ferritin [Mass/volume] in Serum or Plasma FERRITIN BLD Lab Routine 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cer Anemia, unspecified type Expected: 08/02/2024 (Approximate), Expires: 08/02/2024 [facility] Work Phone: Comment on above: Expected: 08/02/2024 (Approximate), Expi res: 08/02/2024 Start: 08-02-2024 End: 08-02-2024 Folate [Mass/volume] in Serum or Plasma FOLATE SERUM Lab Routine 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cer Anemia, unspecified type Expected: 08/02/2024 (Approximate), Expires: 08/02/2024 [facility] Work Phone: Comment on above: Expected: 08/02/2024 (Approximate), Expi res: 08/02/2024 Start: 08-02-2024 End: 08-02-2024 Iron and Iron binding capacity panel - Serum or Plasma IRON + TIBC Lab Routine 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cer Anemia, unspecified type Expected: 08/02/2024 (Approximate), Expires: 08/02/2024 [facility] Work Phone: Comment on above: Expected: 08/02/2024 (Approximate), Expi res: 08/02/2024 Start: 07-31-2024 End: 07-31-2024 Follow-up encounter 07/31/2024 10:15 AM EST Visit (SP) Office Hematology/Oncology [address] [place] [address] Arnol Daugherty MD [address] [place] [address] 1 year follow up Hematology/Oncolog y Comment on above: 1 year follow up Start: 07-31-2024 End: 07-31-2024 Patient encounter procedure 07/31/2024 10:00 AM EST Office Visit [facility] [address] [place] [address] 1 year follow up [facility] Comment on above: 1 year follow up Start: 07-26-2024 Hemoglobin/Hematocrit Hemoglobin/Hematocrit [facility] Start: 07-26-2024 Serum Creatinine Serum Creatinine [facility] Start: 07-15-2024 End: 07-15-2024 Patient encounter procedure [facility] Comment on above: Arrived Start: 05-25-2024 Covid-19 Vaccine ( season) Covid-19 Vaccine ( season) [facility] Start: 05-25-2024 Influenza vaccination Influenza Vaccine (#1) [facility] Start: 01-26-2024 HEMOGLOBIN/HEMATOCRIT HEMOGLOBIN/HEMATOCRIT [facility] Start: 01-26-2024 SERUM CREATININE SERUM CREATININE [facility] Start: 12-16-2023 DIABETES SCREEN DIABETES SCREEN [facility] Start: 09-24-2023 Advance Directive Discussion Advance Directive Discussion [facility] Start: 09-19-2023 SERUM CREATININE SERUM CREATININE [facility] Start: 07-31-2023 CT of soft tissues of neck with contrast CT neck 4D parathyroid [facility] Start: 07-31-2023 Single photon emission computed tomography of parathyroid NM*parathyroid SPECT* [facility] Start: 07-31-2023 SPECT Parathyroid gland [facility] Start: 07-26-2023 HEMOGLOBIN/HEMATOCRIT HEMOGLOBIN/HEMATOCRIT [facility] Start: 07-26-2023 SERUM CREATININE SERUM CREATININE [facility] Start: 05-25-2023 Covid-19 Vaccine () Covid-19 Vaccine () [facility] Start: 05-25-2023 Influenza vaccination [facility] Start: 03-30-2023 SERUM CREATININE SERUM CREATININE [facility] Start: 03-24-2023 SERUM CREATININE SERUM CREATININE [facility] Start: 03-22-2023 HEMOGLOBIN/HEMATOCRIT HEMOGLOBIN/HEMATOCRIT [facility] Start: 03-22-2023 SERUM CREATININE SERUM CREATININE [facility] Start: 02-23-2023 HEMOGLOBIN/HEMATOCRIT HEMOGLOBIN/HEMATOCRIT [facility] Start: 02-23-2023 SERUM CREATININE SERUM CREATININE [facility] Start: 01-26-2023 COVID-19 VACCINE (5 - Moderna series) COVID-19 VACCINE (5 - Moderna series) [facility] Start: 01-25-2023 End: 03-27-2023 25-hydroxyvitamin D3 [Mass/volume] in Serum or Plasma [facility] Work Phone: Comment on above: Expected: 01/25/2023, Expires: 3 Start: 01-25-2023 End: 03-27-2023 ALBUMIN/CREAT RATIO RND UR [facility] Work Phone: Comment on above: Expected: 01/25/2023, Expires: 3 Start: 01-25-2023 End: 03-27-2023 Parathyrin.intact [Mass/volume] in Serum or Plasma [facility] Work Phone: Comment on above: Expected: 01/25/2023, Expires: 3 Start: 01-24-2023 End: 03-26-2023 Carcinoembryonic Ag [Mass/volume] in Serum or Plasma CEA BLD Lab Routine Malignant neoplasm of rectum (HCC) Malignant neoplasm of colon, unspecified part of colon (HCC) Expected: 01/24/2023 (Approximate), Expires: 03/26/2023 [facility] Work Phone: Comment on above: Expected: 01/24/2023 (Approximate), Expi res: 03/26/2023 Start: 01-24-2023 End: 07-27-2023 CBC W Auto Differential panel - Blood CBC + DIFF Lab Routine Malignant neoplasm of colon, unspecified part of colon (HCC) Anemia, unspecified type Expected: 01/24/2023 (Approximate), Expires: 07/27/2023 [facility] Work Phone: Comment on above: Expected: 01/24/2023 (Approximate), Expi res: 07/27/2023 Start: 01-24-2023 End: 07-27-2023 Cobalamin (Vitamin B12) [Mass/volume] in Serum or Plasma VITAMIN B12 BLOOD Lab Routine Malignant neoplasm of colon, unspecified part of colon (HCC) Anemia, unspecified type Expected: 01/24/2023 (Approximate), Expires: 07/27/2023 [facility] Work Phone: Comment on above: Expected: 01/24/2023 (Approximate), Expi res: 07/27/2023 Start: 01-24-2023 End: 07-27-2023 Comprehensive metabolic 2000 panel - Serum or Plasma COMP METABOLIC PANEL Lab Routine Malignant neoplasm of colon, unspecified part of colon (HCC) Anemia, unspecified type Expected: 01/24/2023 (Approximate), Expires: 07/27/2023 [facility] Work Phone: Comment on above: Expected: 01/24/2023 (Approximate), Expi res: 07/27/2023 Start: 01-24-2023 End: 07-27-2023 Ferritin [Mass/volume] in Serum or Plasma FERRITIN BLD Lab Routine Malignant neoplasm of colon, unspecified part of colon (HCC) Anemia, unspecified type Expected: 01/24/2023 (Approximate), Expires: 07/27/2023 [facility] Work Phone: Comment on above: Expected: 01/24/2023 (Approximate), Expi res: 07/27/2023 Start: 01-24-2023 End: 07-27-2023 Folate [Mass/volume] in Serum or Plasma FOLATE SERUM Lab Routine Malignant neoplasm of colon, unspecified part of colon (HCC) Anemia, unspecified type Expected: 01/24/2023 (Approximate), Expires: 07/27/2023 [facility] Work Phone: Comment on above: Expected: 01/24/2023 (Approximate), Expi res: 07/27/2023 Start: 01-24-2023 End: 07-27-2023 Iron and Iron binding capacity panel - Serum or Plasma IRON + TIBC Lab Routine Malignant neoplasm of colon, unspecified part of colon (HCC) Anemia, unspecified type Expected: 01/24/2023 (Approximate), Expires: 07/27/2023 [facility] Work Phone: Comment on above: Expected: 01/24/2023 (Approximate), Expi res: 07/27/2023 Start: 01-17-2023 HEMOGLOBIN/HEMATOCRIT HEMOGLOBIN/HEMATOCRIT [facility] Start: 01-17-2023 SERUM CREATININE SERUM CREATININE [facility] Start: 01-11-2023 Adult depression screening assessment DEPRESSION SCREENING [facility] Start: 09-24-2022 ADVANCE DIRECTIVE DISCUSSION ADVANCE DIRECTIVE DISCUSSION [facility] Start: 09-24-2022 DEPRESSION ASSESSMENT DEPRESSION ASSESSMENT [facility] Start: 08-29-2022 End: 10-29-2022 CALCIUM 24 HR URINE CALCIUM 24 HR URINE Lab Routine Hypercalcemia Hyperparathyroidism (HCC) Expected: 08/29/2022, Expires: 10/29/2022 [facility] Work Phone: Comment on above: Expected: 08/29/2022, Expires: Start: 08-29-2022 End: 10-29-2022 CREATININE 24 HR UR CREATININE 24 HR UR Lab Routine Hypercalcemia Hyperparathyroidism (HCC) Expected: 08/29/2022, Expires: 10/29/2022 [facility] Work Phone: Comment on above: Expected: 08/29/2022, Expires: 3 Start: 08-29-2022 End: 10-29-2022 Renal function 2000 panel - Serum or Plasma RENAL FUNCTION PANEL Lab Routine Hypercalcemia Hyperparathyroidism (HCC) Expected: 08/29/2022, Expires: 10/29/2022 [facility] [facility] Work Phone: Comment on above: Expected: 08/29/2022, Expires: 3 Start: 08-29-2022 End: 10-29-2022 Sodium [Moles/time] in 24 hour Urine SODIUM 24 HR URINE Lab Routine Hypercalcemia Hyperparathyroidism (HCC) Expected: 08/29/2022, Expires: 10/29/2022 [facility] Work Phone: Comment on above: Expected: 08/29/2022, Expires: 3 Start: 07-29-2022 End: 01-26-2023 CBC W Auto Differential panel - Blood CBC + DIFF Lab Routine Chronic renal failure, stage 3b (HCC) Malignant neoplasm of colon, unspecified part of colon (HCC) Lung nodules Expected: 07/29/2022 (Approximate), Expires: 01/26/2023 [facility] Work Phone: Comment on above: Expected: 07/29/2022 (Approximate), Expi res: 01/26/2023 Start: 07-29-2022 End: 01-26-2023 Comprehensive metabolic 2000 panel - Serum or Plasma COMP METABOLIC PANEL Lab Routine Chronic renal failure, stage 3b (HCC) Malignant neoplasm of colon, unspecified part of colon (HCC) Lung nodules Expected: 07/29/2022 (Approximate), Expires: 01/26/2023 [facility] Work Phone: Comment on above: Expected: 07/29/2022 (Approximate), Expi res: 01/26/2023 Start: 07-29-2022 End: 02-25-2023 Ct abdomen & pelvis w/contrast material CT ABD/PEL W IVCON Radiology Routine Malignant neoplasm of colon, unspecified part of colon (HCC) Expected: 07/29/2022 (Approximate), Expires: 02/25/2023 [facility] Work Phone: Comment on above: Expected: 07/29/2022 (Approximate), Expi res: 02/25/2023 Start: 07-29-2022 End: 02-25-2023 Ct thorax w/contrast material CT CHEST W IVCON Radiology Routine Lung nodules Expected: 07/29/2022 (Approximate), Expires: 02/25/2023 [facility] Work Phone: Comment on above: Expected: 07/29/2022 (Approximate), Expi res: 02/25/2023 Start: 05-25-2022 Influenza vaccination [facility] Start: 03-30-2022 End: 05-30-2022 Renal function 2000 panel - Serum or Plasma RENAL FUNCTION PANEL Lab Routine RAMEZ (acute kidney injury) (HCC) Hypercalcemia Hyponatremia Expected: 03/30/2022, Expires: 05/30/2022 [facility] Work Phone: Comment on above: Expected: 03/30/2022, Expires: Start: 01-17-2022 End: 03-19-2022 CALCIUM IONIZED B CALCIUM IONIZED B Lab Routine Malignant neoplasm of rectum (HCC) Lung nodules Stage 3a chronic kidney disease (HCC) Hypercalcemia Expected: 01/17/2022 (Approximate), Expires: 03/19/2022 [facility] Work Phone: Comment on above: Expected: 01/17/2022 (Approximate), Expi res: 03/19/2022 Start: 01-17-2022 End: 01-13-2023 CBC W Auto Differential panel - Blood CBC + DIFF Lab Routine Malignant neoplasm of rectum (HCC) Lung nodules Stage 3a chronic kidney disease (HCC) Hypercalcemia Expected: 01/17/2022 (Approximate), Expires: 01/13/2023 [facility] Work Phone: Comment on above: Expected: 01/17/2022 (Approximate), Expi res: 01/13/2023 Start: 01-17-2022 End: 04-22-2023 Comprehensive metabolic 2000 panel - Serum or Plasma COMP METABOLIC PANEL Lab Routine Malignant neoplasm of rectum (HCC) Lung nodules Stage 3a chronic kidney disease (HCC) Hypercalcemia Expected: 01/17/2022 (Approximate), Expires: 01/13/2023 [facility] Work Phone: Comment on above: Expected: 01/17/2022 (Approximate), Expi res: 01/13/2023 Start: 01-17-2022 End: 03-19-2022 PTH RELATED PEPTIDE PTH RELATED PEPTIDE Lab Routine Malignant neoplasm of rectum (HCC) Lung nodules Stage 3a chronic kidney disease (HCC) Hypercalcemia Expected: 01/17/2022 (Approximate), Expires: 03/19/2022 [facility] Work Phone: Comment on above: Expected: 01/17/2022 (Approximate), Expi res: 03/19/2022 Start: 01-17-2022 End: 03-19-2022 VITAMIN D 25 HYDROXY VITAMIN D 25 HYDROXY Lab Routine Malignant neoplasm of rectum (HCC) Lung nodules Stage 3a chronic kidney disease (HCC) Hypercalcemia Expected: 01/17/2022 (Approximate), Expires: 03/19/2022 [facility] Work Phone: Comment on above: Expected: 01/17/2022 (Approximate), Expi res: 03/19/2022 Start: 01-17-2022 End: 03-19-2022 VITAMIN D1 25-DIHYDR VITAMIN D1 25-DIHYDR Lab Routine Malignant neoplasm of rectum (HCC) Lung nodules Stage 3a chronic kidney disease (HCC) Hypercalcemia Expected: 01/17/2022 (Approximate), Expires: 03/19/2022 [facility] Work Phone: Comment on above: Expected: 01/17/2022 (Approximate), Expi res: 03/19/2022 Start: 01-16-2022 End: 01-09-2023 Carcinoembryonic Ag [Mass/volume] in Serum or Plasma CEA BLD Lab Routine Malignant neoplasm of colon, unspecified part of colon (HCC) Expected: 01/16/2022 (Approximate), Expires: 01/09/2023 [facility] Work Phone: Comment on above: Expected: 01/16/2022 (Approximate), Expi res: 01/09/2023 Start: 01-16-2022 End: 01-09-2023 CBC W Auto Differential panel - Blood CBC + DIFF Lab Routine Malignant neoplasm of colon, unspecified part of colon (HCC) Expected: 01/16/2022 (Approximate), Expires: 01/09/2023 [facility] Work Phone: Comment on above: Expected: 01/16/2022 (Approximate), Expi res: 01/09/2023 Start: 01-16-2022 End: 01-09-2023 Comprehensive metabolic 2000 panel - Serum or Plasma COMP METABOLIC PANEL Lab Routine Malignant neoplasm of colon, unspecified part of colon (HCC) Expected: 01/16/2022 (Approximate), Expires: 01/09/2023 [facility] Work Phone: Comment on above: Expected: 01/16/2022 (Approximate), Expi res: 01/09/2023 Start: 11-30-2021 COVID-19 VACCINE (4 - Booster for Moderna series) COVID-19 VACCINE (4 - Booster for Moderna series) [facility] Start: 09-27-2021 COVID-19 VACCINE (4 - Booster for Moderna series) COVID-19 VACCINE (4 - Booster for Moderna series) [facility] Start: 09-24-2021 ADVANCE DIRECTIVE DISCUSSION ADVANCE DIRECTIVE DISCUSSION [facility] Start: 09-24-2021 DEPRESSION ASSESSMENT DEPRESSION ASSESSMENT [facility] Start: 06-16-2021 Adult depression screening assessment DEPRESSION SCREENING [facility] Start: 01-20-2019 RSV Vaccine (1 - 1-dose 75+ series) RSV Vaccine (1 - 1-dose 75+ series) [facility] Start: 11-25-2010 SHINGRIX VACCINE (1 of 2) SHINGRIX VACCINE (1 of 2) [facility] Start: 11-25-2010 SHINGRIX VACCINE (2 of 3) SHINGRIX VACCINE (2 of 3) [facility] Start: 01-20-2009 BONE DENSITY BONE DENSITY [facility] Start: 01-20-2009 Pneumococcal Vaccine: 65+ (1 of 1 - PCV) Pneumococcal Vaccine: 65+ (1 of 1 - PCV) [facility] Start: 01-20-2009 Pneumococcal Vaccine: 65+ Years (1 of 1 - PCV) Pneumococcal Vaccine: 65+ Years (1 of 1 - PCV) [facility] Start: 01-20-2009 PNEUMOVAX AGE 65 AND OVER WITH 5YR LOOKBACK (#1) PNEUMOVAX AGE 65 AND OVER WITH 5YR LOOKBACK (#1) [facility] Start: 2004 RSV Vaccine (1 - 1-dose 60+ series) RSV Vaccine (1 - 1-dose 60+ series) [facility] Start: 01-20-1963 Urine microalbumin profile [facility] Start: 01-20-1962 ANNUAL PCP TEAM CHRONIC DISEASE VISIT ANNUAL PCP TEAM CHRONIC DISEASE VISIT [facility] Start: 01-20-1962 Anxiety Screening Anxiety Screening [facility] Start: 01-20-1962 BP CONTROLLED (<130/80) BP CONTROLLED (<130/80) [facility] in Start: 01-20-1962 Depression Screening Depression Screening [facility] Start: 01-20-1962 HEPATITIS C SCREENING HEPATITIS C SCREENING [facility] Start: 01-20-1950 Pneumococcal Vaccine: 65+ (1 - PCV) Pneumococcal Vaccine: 65+ (1 - PCV) [facility] Start: 01-20-1950 PNEUMOCOCCAL: 65+ (1 - PCV) PNEUMOCOCCAL: 65+ (1 - PCV) [facility] Start: 1945 Medicare Annual Wellness (AWV) Medicare Annual Wellness (AWV) [facility] End: 01-12-2023 Carcinoembryonic Ag [Mass/volume] in Serum or Plasma CEA BLD Lab Routine Malignant neoplasm of rectum (HCC) Every 6 months for 3 Occurrences starting 01/12/2022 until 01/12/2023 [facility] Work Phone: Comment on above: Every 6 months for 3 Occurrences startin g 01/12/2022 until 01/12/2023 Carcinoembryonic Ag [Mass/volume] in Serum or Plasma CEA BLD Lab Routine Malignant neoplasm of rectum (HCC) 01/12/2022 11:17 AM EDT [facility] Work Phone: End: 01-12-2023 CBC W Auto Differential panel - Blood CBC + DIFF Lab Routine Stage 3a chronic kidney disease (HCC) Anemia, unspecified type Every 6 months for 3 Occurrences starting 01/12/2022 until 01/12/2023, 1 completed [facility] Work Phone: Comment on above: Every 6 months for 3 Occurrences startin g 01/12/2022 until 01/12/2023, 1 completed End: 01-12-2023 Comprehensive metabolic 2000 panel - Serum or Plasma COMP METABOLIC PANEL Lab Routine Malignant neoplasm of rectum (HCC) Stage 3a chronic kidney disease (HCC) Every 6 months for 3 Occurrences starting 01/12/2022 until 01/12/2023, 1 completed [facility] Work Phone: Comment on above: Every 6 months for 3 Occurrences startin g 01/12/2022 until 01/12/2023, 1 completed End: 06-22-2023 Dxa bone density study 1/> sites axial skel DXA-AXIAL SKELETON Radiology Routine Hypercalcemia Hyperparathyroidism (HCC) 1 Occurrences starting 05/23/2022 until 06/22/2023 [facility] Work Phone: Comment on above: 1 Occurrences starting 05/23/2022 until 06/22/2023 End: 06-22-2023 Dxa bone density study 1/>sites appendiclr skel DXA-FOREARM SKELETON Radiology Routine Hypercalcemia Hyperparathyroidism (HCC) 1 Occurrences starting 05/23/2022 until 06/22/2023 [facility] Work Phone: Comment on above: 1 Occurrences starting 05/23/2022 until 06/22/2023 Renal function 1999 panel - Serum or Plasma [facility] Renal function 1999 panel - Serum or Plasma [facility] End: 02-11-2023 Screening mammography bi 2-view breast inc cad OLY SCREENING Radiology Routine Encounter for screening mammogram for breast cancer Every 6 months for 3 Occurrences starting 01/12/2022 until 02/11/2023 [facility] Work Phone: Comment on above: Every 6 months for 3 Occurrences startin g 01/12/2022 until 02/11/2023 Urinalysis complete panel - Urine URINALYSIS, WITH MICROSCOPIC Lab Routine Chronic kidney disease (CKD) stage G3b/A1, moderately decreased glomerular filtration rate (GFR) between 30-44 mL/min/1.73 square meter and albuminuria creatinine ratio less than 30 mg/g (HCC) Renal hypertension Anemia, unspecified type Hyposmolality syndrome Ordered: 01/25/2023 [facility] Work Phone: Comment on above: Ordered: 01/25/2023 End: 09-28-2023 Us soft tissue head & neck real time imge docm US THYROID/PARATHYROID Radiology Routine Thyroid nodule 1 Occurrences starting 08/29/2022 until 09/28/2023 [facility] Work Phone: Comment on above: 1 Occurrences starting 08/29/2022 until 09/28/2023 [facility] Immunizations Immunization Date Immunization Notes Care Provider Fa cility 09-27-2023 COVID-19 vaccine, ag e 12+ yr (MODERNA) Arnol Daugherty MD Work Phone: [facility] 09-28-2022 COVID-19 mRNA Bivale nt Booster (Moderna) [facility] 08-02-2021 COVID-19 vaccine, fu ll dose (MODERNA) Arnol Daugherty MD Work Phone: [facility] 12-07-2020 COVID-19 vaccine, fu ll dose (MODERNA) Arnol Daugherty MD Work Phone: [facility] 11-11-2020 COVID-19 vaccine, fu ll dose (MODERNA) Arnol Daugherty MD Work Phone: [facility] 09-30-2010 zoster vaccine, live Arnol hayes MD Work Phone: [facility] Payers Date Payer Category Payer Self-pay 2020 Private Health Insurance [employer] A ETNA MEDICARE SUPPLEMENT [id number] 2020-Present [phone] [address] [address] [place] [address] Indemnity [id number] 2020 Private Health Insurance [id number] 2010 Medicare MEDICARE MEDICAR E A AND B [id number] 2010-Present [phone] [place] [address] Medicare [id number] 2010 Medicare [id number] 1959 Medicare [id number] 1959 Private Health Insurance I [id number] 1959 Self-pay [id number] 1944 Unknown [id number] 1944 Unknown [id number] 1944 Unknown [id number] 1944 Unknown [id number] 1944 Unknown [id number] Medicare Medicare [id number] Unknown [id number] Unknown [id number] Unknown [id number] Unknown [employer] [id number] Unknown [id number] Social History Date Type Detail Facility Start: 07-22-2013 End: 03-25-2024 Tobacco smoking status NHIS Never smoked tobacco [facility] Start: 07-22-2013 End: 07-24-2023 Tobacco use and exposure Smokeless tobacco non-user [facility] Start: 12-15-2020 End: 07-31-2024 Alcohol intake Current non-drinker of alcohol (finding) [facility] Start: 1945 Sex Assigned At Female [facility] Start: 01-02-2022 End: 07-27-2022 Exposure to SARS-CoV-2 (event) Not sure [facility] Start: 05-23-2022 End: 02-25-2024 Sex Assigned At [facility] Start: 05-23-2022 End: 02-25-2024 History of Social function [facility] Adult Depression Screening Assessment 0 [facility] Start: 05-01-2019 Gender identity Identifies as female gender (finding) [facility] Start: 05-01-2019 Sexual orientation Heterosexual (finding) [facility] Start: 02-26-2024 End: 10-09-2024 Alcoholic beverage intake Lifetime non-drinker (finding) [facility] Do you belong to any clubs or organizations such as amish groups, unions, fraternal or athletic groups, or school groups? Yes [facility] Are you now , , , , never or living with a partner? [facility] How often to you hav e a drink containing alcohol? Monthly or less [facility] How many standard dr inks containing alcohol do you have on a typical day? 1 or 2 [facility] How often do you hav e 6 or more drinks on 1 occasion? Never [facility] Do you feel stress - tense, restless, nervous, or anxious, or unable to sleep at night because your mind is troubled all the time - these days [OSQ] Only a little [facility] (I/We) worried wheth er (my/our) food would run out before (I/we) got money to buy more. Never true [facility] In the past 12 month s, was there a time when you were not able to pay the mortgage or rent on time? No [facility] Start: 07-24-2023 Alcohol Comment caffeine intake : 2-3 cups per day [facility] Start: 1945 Sex assigned at Not on file [facility] Start: 10-01-2024 End: 02-28-2025 Sex Female (finding) [facility] Medical Equipment Procedure Code Equipment Code Equipment Origin al Text Equipment Identifier Dates Stent Uret 7fr 2 6cm W/O Gw Inl - [id number] Start: 07-20-2014 Clinical Notes 01-12-2022 to 10-09-2024 Logan Gomez MD - 10/09/2024 11:09 AM Odalis Gomez MD - 10/09/2024 11:08 AM Odalis Gomez MD - 10/09/2024 11:08 AM Odalis Gomez MD - 10/09/2024 10:00 AM ESTPatient Instructions Note Date & Type Note Facility 10-09-2024 History of Present illness Narrative Associated Problem(s): Stage 3b chronic kidney disease (CKD) (CMS/HCC) Renal function stable and follow with nephro. Associated Problem(s): Essential hypertension (CMS/HCC) BP remains elevated and add coreg. Monitor PRN. Associated Problem(s): Dermatitis Unclear cause of rash and treat with prednisone. Use steroid cream and hydroxyzine PRN. Images from the original note were not included. Subjective Patient ID: Aleksander Barger is a 79 y.o. female who presents for Rash. C/o rash for several weeks. Initially to daughter's and they have a dog to which she is allergic. Developed red, raised bumps on legs and itchy. Few days later rash spread to arms and shoulder. Now large, plaques on back. Continues to be very itchy. Using OTC and not much relief. No rash on wrists, palms, feet, or around ankles. Checking BP PRN and 150-160. BP 160s at oncology last month. BP 160/70 today. Nephrology stopped lisinopril due to renal function and BP elevated since. Review of Systems Respiratory: Negative for cough, shortness of breath and wheezing. Cardiovascular: Negative for chest pain and palpitations. Gastrointestinal: Negative for abdominal pain, diarrhea, nausea and vomiting. Genitourinary: Negative for dysuria. Objective Physical Exam Constitutional: General: She is not in acute distress. Appearance: Normal appearance. HENT: Head: Normocephalic. Right Ear: Tympanic membrane normal. Left Ear: Tympanic membrane normal. Eyes: Extraocular Movements: Extraocular movements intact. Pupils: Pupils are equal, round, and reactive to light. Cardiovascular: Rate and Rhythm: Normal rate and regular rhythm. Heart sounds: No murmur heard. No friction rub. No gallop. Pulmonary: Effort: Pulmonary effort is normal. Breath sounds: Normal breath sounds. No wheezing, rhonchi or rales. Abdominal: General: Bowel sounds are normal. There is no distension. Palpations: Abdomen is soft. Tenderness: There is no abdominal tenderness. There is no guarding or rebound. Musculoskeletal: Cervical back: Neck supple. Right lower leg: No edema. Left lower leg: No edema. Neurological: Mental Status: She is alert. Assessment/Plan Problem List Items Addressed This Visit Essential hypertension (CMS/HCC) BP remains elevated and add coreg. Monitor PRN. Relevant Medications carvedilol (Coreg) 6.25 MG tablet Stage 3b chronic kidney disease (CKD) (CMS/HCC) Renal function stable and follow with nephro. Dermatitis - Primary Unclear cause of rash and treat with prednisone. Use steroid cream and hydroxyzine PRN. Relevant Medications predniSONE (Deltasone) 50 MG tablet triamcinolone (Kenalog) 0.5 % cream hydrOXYzine HCl (Atarax) 25 MG tablet documented in this encounter [facility] 09-01-2024 Nurse Note Patient Identification confirmed: yes. Injection given and documented on MAR per provider order. Kamilah Yip MA [facility] 09-01-2024 Nurse Note Patient Identification confirmed: yes. Injection given and documented on MAR per provider order. Kamilah Yip MA documented in this encounter [facility] 08-05-2024 Note HNO ID: [id number] Author: LOAN ELISE MA Service: ? Author Type: Director Of Medical Education Type: Progress Notes Filed: 08/05/2024 10:42 Note Text: Patient Identification confirmed: yes. Injection given and documented on MAR per provider order. Loan Elise MA [facility] 08-05-2024 History of Present illness Narrative Patient Identification confirmed: yes. Injection given and documented on MAR per provider order. Loan Elise MA documented in this encounter [facility] 08-04-2024 Telephone encounter Note Images from the original note were not included. Put a note in patient's appt notes to schedule for this at next appt: Melania Maria RN [facility] When patient comes in for B12 injection on 08/05/24 please schedule for a total of 6 months and add a follow up with Dr. Daugherty in January with a B12 and labs. Thanks Melania Previous Messages ----- Message ----- From: Arnol Daugherty MD Sent: 08/01/2024 5:01 PM EST To: Melania Maria RN She may need them for the next year - let's try monthly for 6 months and I can see her with labs at that point. ----- Message ----- From: Melania Maria RN Sent: 08/01/2024 9:12 AM EST To: Arnol Daugherty MD Patient is set up for B12 this month and next. She was wondering how long she will need them? Do you want to repeat labs prior to July 2025? Thanks Melania ----- Message ----- From: Arnol Daugherty MD Sent: 07/31/2024 7:27 PM EST To: [facility] Triage Pool Iron is ok, but she needs B12 shots. Q 4weeks. [facility] 08-04-2024 Miscellaneous Notes Images from the original note were not included. Put a note in patient's appt notes to schedule for this at next appt: Melania Maria RN [facility] When patient comes in for B12 injection on 08/05/24 please schedule for a total of 6 months and add a follow up with Dr. Daugherty in January with a B12 and labs. Thanks Melania Previous Messages ----- Message ----- From: Arnol Daugherty MD Sent: 08/01/2024 5:01 PM EST To: Melania Maria RN She may need them for the next year - let's try monthly for 6 months and I can see her with labs at that point. ----- Message ----- From: Melania Maria RN Sent: 08/01/2024 9:12 AM EST To: Arnol Daugherty MD Patient is set up for B12 this month and next. She was wondering how long she will need them? Do you want to repeat labs prior to July 2025? Thanks Melania ----- Message ----- From: Arnol Daugherty MD Sent: 07/31/2024 7:27 PM EST To: [facility] Triage Pool Iron is ok, but she needs B12 shots. Q 4weeks. Images from the original note were not included. documented in this encounter [facility] 07-31-2024 Telephone encounter Note Images from the original note were not included. [facility] 07-31-2024 Instructions Michelle Mancilla - 07/31/2024 10:17 AM EST Triage to call with today's lab results Continue following with endocrinology (Dr. Humphrey) for hyperparathyroidism Continue following with nephrology (Dr. Bowen) RTC in 12 months - labs preceding week, re-scan if indicated Will be ordered labs to address anemia documented in this encounter [facility] 07-31-2024 History of Present illness Narrative Images from the original note were not included. NAME: Aleksander Barger [facility] NO.: [id number] DATE OF SERVICE: July 31, 2024 ([facility]) Some elements in this clinic note that are critical to medical decision making have been carefully reviewed and included from a prior clinic note dated: August 02, 2023 ([facility]) Referring Provider: Dr. Stock Additional Clinicians involved in Alkesander Barger's care: Logan Gomez Assessment: (N18.32) Chronic renal failure, stage 3b (HCC) (primary encounter diagnosis) (E83.52) Hypercalcemia T3N1b Rectal cancer status post hemicolectomy August 2013. MSI stable Completed course of adjuvant chemotherapy. Did not tolerate well FOLFOX regimen. - was hospitalized Recurrent stage II colon cancer T2N0 in May 2014. Required a completion colectomy. No adjuvant therapy. Persisting Ascites mild continue monitoring Other vitamin B12 deficiency anemia Previously had a low B12 level found in 2014. Did receive monthly B12 IM from [id number] with no improvement. Will monitor with labs every 6months CKD (chronic kidney disease) stage 3, GFR 30-59 ml/min Possibly contributing to her anemia. Will Monitor and consider erythropoetin if hgb drops >9.9 Hypercalcemia seems worse - iPTH was elevated February - referred back to ENT. PLAN: Triage to call with today's lab results Continue following with endocrinology (Dr. Humphrey) for hyperparathyroidism Continue following with nephrology (Dr. Bowen) RTC in 12 months - labs preceding week, re-scan if indicated Will have ordered labs to address anemia HPI: CASE HISTORY: Reverse Chronological Order 01/09/2022 - Mammograms: BIRADS 1 - Negative. Normal interval follow-up in 12 months. 01/04/2022 - CT CAP w/Cont: Chest: Again seen are scattered small noncalcified pulmonary nodules which are overall nonspecific. The majority are unchanged, however there are at least two new nodules (since 03/08/2020) measuring 0.3-0.4 cm within the right middle lobe and right lower lobe. These may represent sites of small airways inflammation or mucous plugging. Continued attention on subsequent studies is suggested. No lymphadenopathy. A/P: Focal wall thickening involving right mid abdominal jejunal loops with associated interloop ascites, suggestive of enteritis. Correlation with clinical symptoms is suggested. If warranted, consideration could be given to further assessment with contrast-enhanced CT of the abdomen/pelvis. No evidence of metastatic disease within the limitations of a noncontrast examination. No lymphadenopathy. 06/09/2020 - CT A/P: No evidence of intra-abdominal/pelvic metastases. No interval change since 03/08/2020. Nonspecific trace loculated ascites/soft tissues prominence in the left hemipelvis, stable. 03/08/2020 - CT CAP: Chest: Bilateral subcentimeter pulmonary nodules, unchanged from prior study of 09/01/2019. No substantial intrathoracic adenopathy is identified. A/P: Small amount of abdominal and pelvic ascites, a new finding, as above. Mild, diffuse small bowel wall thickening is appreciated within the pelvis, a nonspecific finding. This may relate to prior radiation therapy. A minimally prominent retroperitoneal lymph node is again noted, unchanged from the prior study of 09/01/2019. 09/01/2019 - CT CAP: Chest: Subcentimeter right-sided pulmonary nodules, stable. There has been interval resolution of previously identified small reticulonodular infiltrate within the right lower lobe. Ectasia of the ascending thoracic aorta, unchanged. Heterogeneous enlargement of the right lobe of the thyroid gland, right lobe thyroid hypodensity, felt to be stable, poorly characterized on these unenhanced images. A/P: Minimally prominent aortocaval retroperitoneal lymph node appears unchanged from the prior study of 09/03/2018. Otherwise, essentially unremarkable postoperative appearance to the abdomen and pelvis. 09/03/2018 - CT CAP: Chest: Stable subcentimeter right-sided pulmonary nodules, as above. Heterogeneous enlargement of the right lobe of the thyroid gland, areas of decreased attenuation involving the right lobe, not as well characterized on these unenhanced images, however, stable. Mild ectasia of the ascending thoracic aorta, stable. A/P: Stable appearance to a minimally prominent retroperitoneal lymph node, as above. Postoperative changes. No definite CT evidence for metastatic or recurrent on these unenhanced images [id number] - She also has a history of anemia and was on B12 supplements from 2900-7384, however it was felt it had little benefit and these injections were stopped. She does have Stage 3 chronic kidney disease. 05/2014 - Colonoscopy notes adenocarcinoma with high grade dysplasia- completes colectomy pT2N0 moderately differentiated adenocarcinoma - given previous difficulty with adjuvant treatment- therapy deferred 02/2014 - Completes four further cycles of single agent 5fu- again did require hospitalization for pre-renal azotemia- therapy discontinued 11/2013 - Starts adjuvant folfox, does not tolerate regimen- completes three cycles of therapy but requires two trips to ER and one admission 08/2013 - Referred to [facility] and completed subtotal colectomy and proctosigmoidectomy pathology notes [id number] disease (2 of 15 lymph nodes involved)- low grade adenocarcinoma (MSI stable) 06/2013 - Colonoscopy notes obstructing rectal mass at 15 cm from anal verge- positive for moderately differentiated adenocarcinoma- staging imaging included thyroid nodule (biopsy negative for malignancy) 04/2013 - Imaging obtained due to abdominal discomfort notes circumferential wall thickening of the sigmoid colon Updated Visit, July 31, 2024: Aleksander returns today for her annual follow up. She has not been able to follow up for hyperparathyroidism yet as she does not have an etiology for hypercalcemia & hypocalciuria. She is slightly anemic - iron studies are pending. She does have some kidney dysfunction which may be the cause of anemia. Updated Visit, August 02, 2023: Aleksander returns today for follow up. She was able to get in to see Dr. Adams instead of Dr. Graf. About 2.5 weeks ago, she was able to dislodge the salivary stone, but then had to go to the ER because doing so caused a lot of pus to drain out as well. A second salivary stone came out at the hospital. She was given an antibiotic and a painkiller. She denies a hx of gout. She has been experiencing slight constipation, which has caused some discomfort. I do not suspect this is due to any recurrence. I reviewed her labs with her, kidney failure stable and being monitored by nephrology. Ca is mildly elevated, uric acid is elevated and stable, B12 is 278, iron sat 16%. WBC count is elevated at 13.8, mostly neutrophils. Not particularly anemic. Having some bowel changes over past few weeks that she is working out. PTH highly elevated, likely correlated to hyperparathyroid tumor. Updated Visit, January 25, 2023: Sees Dr. Bowen at [facility] and managing chronic kidney disease. Not sure why uric acid is elevated at 9. Most recent scans show no evidence of disease. Pulmonary nodules are stable. Ascites resolved. Still getting salivary stones. Hypercalcemia is worse. 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 Updated Visit, July 27, 2022: Gisselle presents and is doing well but has numerous concerns and questions regarding her kidneys as well as persisting hypercalcemia. She's like a nephrology opinion closer to home. Additionally, we reviewed the CT's and she has stable findings with no evidence of recurrence. Updated Visit, March 22, 2022: Following consult with Nephrology was started on fluid restriction as well as Ure-Na powder but is still having concerns. I reviewed her labs and reassured her. We will re-draw labs and make sure to send results to her [employer] also. Updated Visit, January 26, 2022: Called regarding hypercalcemia which is a chronic problem for her. probably associated with renal failure. Will send her to see nephrology. She also has a salivary stone - I recommended that she see Dr. Graf. Updated Visit, January 12, 2022: Had mammograms in [place] last week which were clear. Otherwise doing well. Didn't have labs today and so will obtain. Updated Visit, December 15, 2020: Aleksander is 75 yo and returns in follow up for a history of rectal cancer diagnosed and treted in 2012. And subsequent colon cancer in 2013. She had adjuvant therapy for her rectal cancer but didn't need anything following her colon cancer except for a full colectomy. She is looking for a new PCP and will be seeing Dr. Gomez soon. She is behind on breast screening and wanted an exam today with subsequent orders for mammography. No other complaints. Updated Visit, June 16, 2020: Reviewed CT's with no evidence of recurrence. Ascites is minimal. Left flank pain occurred briefly a few weeks ago and resolved overnight Always has loose stools. Updated Visit, March 17, 2020: This is a 75 year old female Had slight enteritis prior to recent CT on 03/08/2020 - which explains the pelvic ascites. Will follow to resolution. Due to chronic diarrhea, she remains dehydrated. Had ileostomy but then a year later recurred in 2013 - had colectomy REVIEW OF SYSTEMS Per HPI and otherwise negative by full review of organ systems. ECOG PERFORMANCE STATUS: 0 PHYSICAL EXAMINATION: Vitals: BP 157/76 Pulse 81 Temp (Src) 97 (Temporal) Resp 16 Ht 5' 1.496 (1.56m) Wt 166 lb 10.7 oz (75.6kg) SpO2 100% BMI 30.99 kg/(m^2). Body surface area is 1.81 meters squared. Exam limited to gross visualization where appropriate. Gen.: This is an age-appropriate patient in no acute distress. Head: Appears atraumatic with no visible lesions. Eyes: Pupils equally round and reactive to light, extraocular muscles are intact. Neck: Supple. Respiratory: Appears to be respiring comfortably. Neurologic: Nonfocal to gross visualization. Alert and oriented 3. Psychiatric: No evidence of inappropriate anxiety or depression. Skin: Visible areas of skin without rash, lesions, wounds or petechiae. ALLERGIES: ALLERGIES Allergen Reactions Dtap-Ipv Component * Other: See Comments Maria Alejandra Camar[place] Flu Vac 2019 65up-A* Other: See Comments Valeria [place] Pneumococcal Vaccine Other: See Comments Maria Alejandra [place] Penicillins Unknown Tetracyclines Rash MEDICATIONS: amLODIPine (NORVASC) 5 mg tablet Take 1 tablet by mouth twice daily. Cholecalciferol, Vitamin D3, 50 mcg (2,000 unit) cap Magnesium 250 mg tab zinc sulfate (ZINC-15 ORAL) MEDICATION, NON-DATABASE Take 1 capsule by mouth once daily. RESTORE (EYE PROMISE) Multivitamin capsule Take 1 capsule by mouth once daily. aspirin, enteric coated (ASPIRIN, ENTERIC COATED) 81 mg EC tablet Take 81 mg by mouth once daily. LABORATORY VALUES: WBC (k/uL) Date Value 07/31/2024 8.37 RBC (m/uL) Date Value 07/31/2024 3.67 (L) Hemoglobin (g/dL) Date Value 07/31/2024 11.4 (L) Hematocrit (%) Date Value 07/31/2024 33.7 (L) MCV (fL) Date Value 07/31/2024 91.8 MCH (pg) Date Value 07/31/2024 31.1 MCHC (g/dL) Date Value 07/31/2024 33.8 RDW-CV (%) Date Value 07/31/2024 12.8 Platelet Count (k/uL) Date Value 07/31/2024 295 MPV (fL) Date Value 07/31/2024 10.1 Glucose (mg/dL) Date Value 07/31/2024 102 (H) BUN (mg/dL) Date Value 07/31/2024 23 (H) Creatinine (mg/dL) Date Value 07/31/2024 1.39 (H) Sodium (mmol/L) Date Value 07/31/2024 136 Potassium (mmol/L) Date Value 07/31/2024 4.0 Chloride (mmol/L) Date Value 07/31/2024 99 CO2 (mmol/L) Date Value 07/31/2024 25 Protein, Total (g/dL) Date Value 07/31/2024 7.3 Albumin (g/dL) Date Value 07/31/2024 4.4 Calcium, Total (mg/dL) Date Value 07/31/2024 10.9 (H) Alkaline Phosphatase (U/L) Date Value 07/31/2024 88 Bilirubin, Total (mg/dL) Date Value 07/31/2024 0.5 AST (U/L) Date Value 07/31/2024 22 ALT (U/L) Date Value 07/31/2024 15 Cholesterol, Total (mg/dL) Date Value 02/28/2022 232 (H) Triglyceride (mg/dL) Date Value 02/28/2022 121 CEA (ng/mL) Date Value 07/26/2023 1.1 01/25/2023 1.2 03/22/2022 1.2 01/12/2022 1.3 12/15/2020 0.8 06/09/2020 0.7 03/17/2020 0.9 12/10/2019 1.0 09/08/2019 1.0 DIAGNOSIS: (Z85.038) 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cer (primary encounter diagnosis) Plan: COMPLETE BLOOD COUNT AND DIFFERENTIAL, COMPREHENSIVE METABOLIC PANEL, IRON AND TIBC, FERRITIN, VITAMIN B12, FOLATE, SERUM, ERYTHROPOIETIN/EPO (N18.32) Stage 3b chronic kidney disease (HCC) Plan: COMPLETE BLOOD COUNT AND DIFFERENTIAL, COMPREHENSIVE METABOLIC PANEL, IRON AND TIBC, FERRITIN, VITAMIN B12, FOLATE, SERUM, ERYTHROPOIETIN/EPO PAST MEDICAL HISTORY Diagnosis Date Bleeding ulcer Bowel disease Burning mouth syndrome Chronic renal failure, stage 3b (HCC) 02/23/2022 Diverticulitis Fracture left arm 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) History of stomach ulcers Hypercalcemia 01/13/2022 Hypertension Menopause Rectal cancer (HCC) Thyroid nodule PAST SURGICAL HISTORY Procedure Laterality Date APPENDECTOMY CHOLECYSTECTOMY HX COLONOSCOPY DILATION & CURETTAGE DX&/THER NONOBSTETRIC Dilation & curettage F SIGMOIDOSCOPY FLEXIBLE W BIOPSY PAST SURGICAL HISTORY OF 07/15/2014 Bilateral ureteral stent placement by Urology, laparotomy, lysis of adhesions, takedown of diverting loop ileostomy, partial proctectomy, completion colectomy and ileal resection in continuity, ileal J-pouch anal anastomosis ([facility]- 29), diverting loop ileostomy US GUIDED THYROID BIOPSY Social History Tobacco Use Smoking status: Never Smokeless tobacco: Never Vaping Use Vaping status: Never Used Substance Use Topics Alcohol use: No Drug use: No FAMILY HISTORY Problem Relation Age of Onset other (htn [Other]) Father Ischemic Heart Disease Father of massive [place] at 67 I spent a total of 30 minutes on the date of the service which included preparing to see the patient, [id number] patient care, completing clinical documentation, performing a medically appropriate examination, counseling and educating the patient/family/caregiver, ordering medications, tests, or procedures, communicating with other HCPs (not separately reported) and care coordination (not separately reported). Arnol Daugherty MD, CPE Hematology and Oncology Services Provided at: [facility], [place], [place] Scribe Attestation: This note was scribed by Michelle Mancilla on July 31, 2024 under the direction and supervision of Dr. Arnol Daugherty. I attest that all of the information documented is correct to the best of my knowledge. Provider Attestation: I, Arnol Daugherty MD, attest that all information documented by the above scribe is correct, and was supervised by me and under my direction. CC: Dr. Logan Aden documented in this encounter [facility] 07-31-2024 Note HNO ID: [id number] Author: ARNOL DAUGHERTY MD Service: ? Author Type: Physician Type: Progress Notes Filed: 07/31/2024 19:29 Note Text: NAME: Aleksander Barger [facility] NO.: [id number] DATE OF SERVICE: July 31, 2024 (Michelle) Some elements in this clinic note that are critical to medical decision making have been carefully reviewed and included from a prior clinic note dated: August 02, 2023 (Michelle) Referring Provider: Dr. Stock Additional Clinicians involved in Aleksander Barger's care: Logan Gomez Assessment: (N18.32) Chronic renal failure, stage 3b (HCC) (primary encounter diagnosis) (E83.52) Hypercalcemia T3N1b Rectal cancer status post hemicolectomy August 2013. MSI stable Completed course of adjuvant chemotherapy. Did not tolerate well FOLFOX regimen. - was hospitalized Recurrent stage II colon cancer T2N0 in May 2014. Required a completion colectomy. No adjuvant therapy. Persisting Ascites mild continue monitoring Other vitamin B12 deficiency anemia Previously had a low B12 level found in 2014. Did receive monthly B12 IM from [id number] with no improvement. Will monitor with labs every 6months CKD (chronic kidney disease) stage 3, GFR 30-59 ml/min Possibly contributing to her anemia. Will Monitor and consider erythropoetin if hgb drops >9.9 Hypercalcemia seems worse - iPTH was elevated February - referred back to ENT. PLAN: Triage to call with today's lab results Continue following with endocrinology (Dr. Humphrey) for hyperparathyroidism Continue following with nephrology (Dr. Bowen) RTC in 12 months - labs preceding week, re-scan if indicated Will have ordered labs to address anemia HPI: CASE HISTORY: Reverse Chronological Order 01/09/2022 - Mammograms: BIRADS 1 - Negative. Normal interval follow-up in 12 months. 01/04/2022 - CT CAP w/Cont: Chest: Again seen are scattered small noncalcified pulmonary nodules which are overall nonspecific. The majority are unchanged, however there are at least two new nodules (since 03/08/2020) measuring 0.3-0.4 cm within the right middle lobe and right lower lobe. These may represent sites of small airways inflammation or mucous plugging. Continued attention on subsequent studies is suggested. No lymphadenopathy. A/P: Focal wall thickening involving right mid abdominal jejunal loops with associated interloop ascites, suggestive of enteritis. Correlation with clinical symptoms is suggested. If warranted, consideration could be given to further assessment with contrast-enhanced CT of the abdomen/pelvis. No evidence of metastatic disease within the limitations of a noncontrast examination. No lymphadenopathy. 06/09/2020 - CT A/P: No evidence of intra-abdominal/pelvic metastases. No interval change since 03/08/2020. Nonspecific trace loculated ascites/soft tissues prominence in the left hemipelvis, stable. 03/08/2020 - CT CAP: Chest: Bilateral subcentimeter pulmonary nodules, unchanged from prior study of 09/01/2019. No substantial intrathoracic adenopathy is identified. A/P: Small amount of abdominal and pelvic ascites, a new finding, as above. Mild, diffuse small bowel wall thickening is appreciated within the pelvis, a nonspecific finding. This may relate to prior radiation therapy. A minimally prominent retroperitoneal lymph node is again noted, unchanged from the prior study of 09/01/2019. 09/01/2019 - CT CAP: Chest: Subcentimeter right-sided pulmonary nodules, stable. There has been interval resolution of previously identified small reticulonodular infiltrate within the right lower lobe. Ectasia of the ascending thoracic aorta, unchanged. Heterogeneous enlargement of the right lobe of the thyroid gland, right lobe thyroid hypodensity, felt to be stable, poorly characterized on these unenhanced images. A/P: Minimally prominent aortocaval retroperitoneal lymph node appears unchanged from the prior study of 09/03/2018. Otherwise, essentially unremarkable postoperative appearance to the abdomen and pelvis. 09/03/2018 - CT CAP: Chest: Stable subcentimeter right-sided pulmonary nodules, as above. Heterogeneous enlargement of the right lobe of the thyroid gland, areas of decreased attenuation involving the right lobe, not as well characterized on these unenhanced images, however, stable. Mild ectasia of the ascending thoracic aorta, stable. A/P: Stable appearance to a minimally prominent retroperitoneal lymph node, as above. Postoperative changes. No definite CT evidence for metastatic or recurrent on these unenhanced images [id number] - She also has a history of anemia and was on B12 supplements from 0351-5685, however it was felt it had little benefit and these injections were stopped. She does have Stage 3 chronic kidney disease. 05/2014 - Colonoscopy notes adenocarcinoma with (more content not included)... [facility] 07-15-2024 History of Present illness Narrative Associated Problem(s): Thoracic aortic aneurysm without rupture (CMS/HCC) Followed by specialists. Associated Problem(s): Stage 3b chronic kidney disease (CKD) (CMS/HCC) Renal function stable and follow with nephrology. Associated Problem(s): Medicare annual wellness visit, subsequent Will have labs drawn at specialists. Discussed proper diet and regular aerobic exercise. Need aerobic exercise 5-6 days a week for 30 minutes at a time. Smaller portions and limit total calories. Tetanus every 10 years. Advised not to smoke. Discussed daily Aspirin therapy. Associated Problem(s): Hyperparathyroidism (CMS/HCC) Follow with endo. Associated Problem(s): Essential hypertension (CMS/HCC) BP okay today and monitor PRN. Images from the original note were not included. Subjective Patient ID: Aleksander Barger is a 79 y.o. female who presents for Medicare Annual Wellness Visit Subsequent (Medicare wellness ). Presents for medicare annual wellness visit. Patient feels well today. Weight down 6 pounds in the past year. In PT and working on balance. Trying to walk more but not able to exercise. Tries to watch diet and eat healthy. Increased fruits and vegetables. Smaller portions and limits snacking. Tries to limit total daily calories. Will have labs drawn next week. Follows with nephro for CKD and will have scan of aneurysm, follows with cardiology. Review of Systems Respiratory: Negative for cough, shortness of breath and wheezing. Cardiovascular: Negative for chest pain and palpitations. Gastrointestinal: Negative for abdominal pain, diarrhea, nausea and vomiting. Genitourinary: Negative for dysuria. Objective Physical Exam Constitutional: General: She is not in acute distress. Appearance: Normal appearance. HENT: Head: Normocephalic. Right Ear: Tympanic membrane normal. Left Ear: Tympanic membrane normal. Eyes: Extraocular Movements: Extraocular movements intact. Pupils: Pupils are equal, round, and reactive to light. Cardiovascular: Rate and Rhythm: Normal rate and regular rhythm. Heart sounds: No murmur heard. No friction rub. No gallop. Pulmonary: Effort: Pulmonary effort is normal. Breath sounds: Normal breath sounds. No wheezing, rhonchi or rales. Abdominal: General: Bowel sounds are normal. There is no distension. Palpations: Abdomen is soft. Tenderness: There is no abdominal tenderness. There is no guarding or rebound. Musculoskeletal: General: No swelling or tenderness. Cervical back: Neck supple. Right lower leg: No edema. Left lower leg: No edema. Skin: Findings: No erythema or rash. Neurological: General: No focal deficit present. Mental Status: She is alert and oriented to person, place, and time. Cranial Nerves: No cranial nerve deficit. Motor: No weakness. Gait: Gait normal. Assessment/Plan Problem List Items Addressed This Visit Essential hypertension ([facility]) BP okay today and monitor PRN. Hyperparathyroidism ([facility]) Follow with endo. Stage 3b chronic kidney disease (CKD) ([facility]) Renal function stable and follow with nephrology. Thoracic aortic aneurysm without rupture ([facility]) Followed by specialists. Medicare annual wellness visit, subsequent - Primary Will have labs drawn at specialists. Discussed proper diet and regular aerobic exercise. Need aerobic exercise 5-6 days a week for 30 minutes at a time. Smaller portions and limit total calories. Tetanus every 10 years. Advised not to smoke. Discussed daily Aspirin therapy. documented in this encounter [facility] 08-07-2023 Evaluation note Encounter Date Diagnosis Assessment Notes Jul, Chronic kidney disease, stage 3b (ICD-10 - N18.32) Patient has chronic kidney disease stage IIIb likely from hypertensive nephropathy along with history of kidney injury with chemotherapy. . UA is benign. Normal Alb/Cr SCr is stable at 1.34 mg/dl Blood pressure and volume status seems well controlled. Avoid NSAIDs. Advised the patient to keep good hydration and to monitor blood pressure at home. follow-up with the patient in 6 months with labs as above Jul, Hypertensive nephropathy (ICD-10 - I12.9) Blood pressure seems well controlled at home. Patient only on Norvasc. Patient used to be an BALWINDER inhibitor but was stopped last year due to worsening kidney function. I asked the patient to monitor her blood pressure at home and to follow low-salt diet Jul, Anemia, unspecified type (ICD-10 - D64.9) Last hemoglobin 11.6 g deciliter. I will check iron storage along with folate and vitamin B12 next visit. Jul, Hyponatremia (ICD-10 - E87.1) Patient has history of hyponatremia. Last serum sodium level is 135 mmol/l lPatient was prescribed urea tablet before but she could not tolerate. Jul, Hypercalcemia (ICD-10 - E83.52) Patient follows with endocrinology clinic at [facility]. Urine study last year showed no M spike. Patient informed me she had 24-hour urine test done which showed lowurine calcium. Patient has elevated PTH indicating [facility] . I advised the patient to reach out to Dr. Humphrey in endo clinic to discuss with him about the planned parathyroidectimy which is scheduled next month. total Ca level improved with stopping VD supplement Jul, Hyperuricemia (ICD-10 - E79.0) UA is 9.6. Advised the patient to follow low animal protein diet Poppin Other [id number] Instructions* Patient Instructions* Sangeeta Izaguirre - 08/02/2023 2:58 PM EST Continue following with Dr. Adams for hyperparathyroidism Continue following with Nephrology RTC in 12 months - labs preceding week, re-scan if indicated. Will be ordered labs to address anemia [facility] History of Present illness Narrative* Arnol Daugherty MD - 08/02/2023 2:00 PM EST Images from the original note were not included. NAME: Aleksander Barger CLINIC NO.: [id number] DATE OF SERVICE: August 02, 2023 (Michelle) Some elements in this clinic note that are critical to medical decision making have been carefully reviewed and included from a prior clinic note dated: January 25, 2023 (Michelle) Referring Provider: Dr. Stock Additional Clinicians involved in Aleksander Barger's care: Logan Gomez Assessment: (N18.32) Chronic renal failure, stage 3b (HCC) (primary encounter diagnosis) (E83.52) Hypercalcemia T3N1b Rectal cancer status post hemicolectomy August 2013. MSI stable Completed course of adjuvant chemotherapy. Did not tolerate well FOLFOX regimen. - was hospitalized Recurrent stage II colon cancer T2N0 in May 2014. Required a completion colectomy. No adjuvant therapy. Persisting Ascites mild - continue monitoring Other vitamin B12 deficiency anemia - Previously had a low B12 level found in 2014. Did receive monthly B12 IM from [id number] with no improvement. Will monitor with labs every 6months CKD (chronic kidney disease) stage 3, GFR 30-59 ml/min Possibly contributing to her anemia. Will Monitor and consider erythropoetin if hgb drops >9.9 Hypercalcemia seems worse - iPTH was elevated February - referred back to ENT. PLAN: Continue following with Dr. Adams for hyperparathyroidism Continue following with Nephrology RTC in 12 months - labs preceding week, re-scan if indicated. Will be ordered labs to address anemia HPI: Updated Visit, August 02, 2023: Aleksander returns today for follow up. She was able to get in to see Dr. Adams instead of Dr. Graf. About 2.5 weeks ago, she was able to dislodge the salivary stone, but then had to go to the ER because doing so caused a lot of pus to drain out as well. A second salivary stone came out at the hospital. She was given an antibiotic and a painkiller. She denies a hx of gout. She has been experiencingslight constipation, which has caused some discomfort. I do not suspect this is due to any recurrence. I reviewed her labs with her, kidney failure stable and being monitored by nephrology. Ca is mildlyelevated, uric acid is elevated and stable, B12 is 278, iron sat 16%. WBC count is elevated at 13.8, mostly neutrophils. Not particularly anemic. Having some bowel changes over past few weeks that she is working out. PTH highly elevated, likely correlated to hyperparathyroid tumor. Updated Visit, January 25, 2023: Sees Dr. Bowen at [facility] and managing chronic kidney disease. Not sure why uric acid is elevated at9. Most recent scans show no evidence of disease. Pulmonary nodules are stable. Ascites resolved. Still getting salivary stones. Hypercalcemia is worse. 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 Updated Visit, July 27, 2022: Gisselle presents and is doing well but has numerous concerns and questions regarding her kidneys as well as persisting hypercalcemia. She's like a nephrology opinion closer to home. Additionally, we reviewed the CT's and she has stable findings with no evidence of recurrence. Updated Visit, March 22, 2022: Following consult with Nephrology was started on fluid restriction as well as Ure-Na powder but is still having concerns. I reviewed her labs and reassured her. We will re-draw labs and make sure to send results to her [facility] also. Updated Visit, January 26, 2022: Called regarding hypercalcemia which is a chronic problem for her. probably associated with renal failure. Will send her to see nephrology. She also has a salivary stone - I recommended that she see Dr. Graf. Updated Visit, January 12, 2022: Had mammograms in [place] last week which were clear. Otherwise doing well. Didn't have labs today and so will obtain. 01/09/2022 mammograms: BIRADS 1 - Negative. Normal interval follow-up in 12 months. 01/04/2022 CT CAP w/Cont: Chest: 1. Again seen are scattered small noncalcified pulmonary nodules which are overall nonspecific. Themajority are unchanged, however there are at least two new nodules (since 03/08/2020) measuring 0.3-0.4 cm within the right middle lobe and right lower lobe. These may represent sites of small airways inflammation or mucous plugging. Continued attention on subsequent studies is suggested. 2. No lymphadenopathy. 3. Please refer to concurrently acquired and separately reported abdomen CT for findings related tothe upper abdomen. Abdomen / Pelvis: 1. Focal wall thickening involving right mid abdominal jejunal loops with associated interloop ascites, suggestive of enteritis. Correlation with clinical symptoms is suggested. If warranted, consideration could be given to further assessment with contrast-enhanced CT of the abdomen/pelvis. 2. No evidence of metastatic disease within the limitations of a noncontrast examination. 3. No lymphadenopathy. Updated Visit, December 15, 2020: Aleksander is 75 yo and returns in follow up for a history of rectal cancer diagnosed and treted in 2012. And subsequent colon cancer in 2013. She had adjuvant therapy for her rectal cancer but didn't need anything following her colon cancer except for a full colectomy. She is looking for a new PCP and will be seeing Dr. Gomez soon. She is behind on breast screeningand wanted an exam today with subsequent orders for mammography. No other complaints. Updated Visit, June 16, 2020: Reviewed CT's with no evidence of recurrence. Ascites is minimal. Left flank pain occurred briefly a few weeks ago and resolved overnight Always has loose stools. Updated Visit, March 17, 2020: This is a 75 year old female Had slight enteritis prior to recent CT on 03/08/2020 - which explains the pelvic ascites. Will follow to resolution. Due to chronic diarrhea, she remains dehydrated. Had ileostomy but then a year later recurred in 2013. - had colectomy Case Hx: 04/2013 : imaging obtained due to abdominal discomfort notes circumferential wall thickening of the sigmoid colon 06/2013 : colonoscopy notes obstructing rectal mass at 15 cm from anal verge- positive for moderately differentiated adenocarcinoma- staging imaging included thyroid nodule (biopsy negative for malignancy) 08/2013 : referred to [facility] main and completed subtotal colectomy and proctosigmoidectomy pathology notes [id number] disease ( 2 of 15 lymph nodes involved)- low grade adenocarcinoma (MSI stable) 11/2013 : starts adjuvant folfox, does not tolerate regimen- completes three cycles of therapy but requires two trips to ER and one admission 02/2014 : completes four further cycles of single agent 5fu- again did require hospitalization for pre-renal azotemia- therapy discontinued 05/2014 : colonoscopy notes adenocarcinoma with high grade dysplasia- completes colectomy pT2N0 moderately differentiated adenocarcinoma - given previous difficulty with adjuvant treatment- therapy deferred She also has a history of anemia and was on B12 supplements from [id number], however it was felt it had little benefit and these injections were stopped. She does have Stage 3 chronic kidney disease. Today her anemia appears stable. RADIOGRAPHIC DATA: Reviewed on December 15, 2020 4. 06/09/2020 CT Abd/Pelvis: 1. No evidence of intra-abdominal/pelvic metastases. No interval changesince 03/08/2020. 2. Nonspecific trace loculated ascites/soft tissues prominence in the left hemipelvis, stable. 3. 03/08/2020 CT CAP w/o IV cont: Chest: 1. Bilateral subcentimeter pulmonary nodules, unchanged from prior study of 09/01/2019. 2. No substantial intrathoracic adenopathy is identified. Abd/Pelvis: 1. Small amount of abdominal and pelvic ascites, a new finding, as above. 2. Mild, diffuse small bowel wall thickening is appreciated within the pelvis, a nonspecific finding. This may relate to prior radiation therapy. 3. A minimally prominent retroperitoneal lymph node is again noted, unchanged from the prior study of 09/01/2019. 2. ct c/a/p without contrast 09/01/19 1. Subcentimeter right-sided pulmonary nodules, stable. There has been interval resolution of previously identified small reticulonodular infiltrate within the right lower lobe. 2. Ectasia of the ascending thoracic aorta, unchanged. 3. Heterogeneous enlargement of the right lobe of the thyroid gland, right lobe thyroid hypodensity, felt to be stable, poorly characterized on these unenhanced images. 1. Minimally prominent aortocaval retroperitoneal lymph node appears unchanged from the prior studyof 09/03/2018. 2. Otherwise, essentially unremarkable postoperative appearance to the abdomen and pelvis. 1. Ct Chest 09/03/18 1. Stable subcentimeter right-sided pulmonary nodules, as above. 2. Heterogeneous enlargement of the right lobe of the thyroid gland, areas of decreased attenuationinvolving the right lobe, not as well characterized on these unenhanced images, however, stable. 3. Mild ectasia of the ascending thoracic aorta, stable. CT abdomen and pelvis 09/03/18 1. Stable appearance to a minimally prominent retroperitoneal lymph node, as above. 2. Postoperative changes. No definite CT evidence for metastatic or recurrent on these unenhanced images REVIEW OF SYSTEMS Per HPI and otherwise negative by full review of organ systems. ECOG PERFORMANCE STATUS: 0 PHYSICAL EXAMINATION: Vitals: BP 141/70 Pulse 78 Temp (Src) 97.6 (Temporal) Resp 18 Ht 5' 1.496 (1.56m) Wt 172lb 6.4 oz (78.2kg) SpO2 98% BMI 32.05 kg/(m^2). Body surface area is 1.84 meters squared. Exam limited to gross visualization where appropriate. Gen.: This is an age-appropriate patient in no acute distress. Head: Appears atraumatic with no visible lesions. Eyes: Pupils equally round and reactive to light, extraocular muscles are intact. Neck: Supple. Respiratory: Appears to be respiring comfortably. Neurologic: Nonfocal to gross visualization. Alert and oriented 3. Psychiatric: No evidence of inappropriate anxiety or depression. Skin: Visible areas of skin without rash, lesions, wounds or petechiae. ALLERGIES: ALLERGIES Allergen Reactions Dtap-Ipv Component * Other: See Comments Maria Alejandra Camar[place] Flu Vac 2019 65up-A* Other: See Comments Valeria [place] Pneumococcal Vaccine Other: See Comments Maria Alejandra [place] Penicillins Unknown Tetracyclines Rash MEDICATIONS: clindamycin (CLEOCIN) 150 mg capsule TAKE 2 CAPSULES BY MOUTH EVERY 6 HOURS amLODIPine (NORVASC) 5 mg tablet Take 1 tablet by mouth twice daily. Magnesium 250 mg tab zinc sulfate (ZINC-15 ORAL) MEDICATION, NON-DATABASE Take 1 capsule by mouth once daily. RESTORE (EYE PROMISE) Multivitamin capsule Take 1 capsule by mouth once daily. aspirin, enteric coated (ASPIRIN, ENTERIC COATED) 81 mg EC tablet Take 81 mg by mouth once daily. LOPERAMIDE HCL (IMODIUM ORAL) Take by mouth as needed. Cholecalciferol, Vitamin D3, 50 mcg (2,000 unit) cap LABORATORY VALUES: WBC (k/uL) Date Value 07/26/2023 13.18 (H) RBC (m/uL) Date Value 07/26/2023 3.84 (L) Hemoglobin (g/dL) Date Value 07/26/2023 11.9 Hematocrit (%) Date Value 07/26/2023 36.4 MCV (fL) Date Value 07/26/2023 94.8 MCH (pg) Date Value 07/26/2023 31.0 MCHC (g/dL) Date Value 07/26/2023 32.7 RDW-CV (%) Date Value 07/26/2023 13.2 Platelet Count (k/uL) Date Value 07/26/2023 299 MPV (fL) Date Value 07/26/2023 10.1 Glucose (mg/dL) Date Value 07/26/2023 108 (H) BUN (mg/dL) Date Value 07/26/2023 26 (H) Creatinine (mg/dL) Date Value 07/26/2023 1.34 (H) Sodium (mmol/L) Date Value 07/26/2023 139 Potassium (mmol/L) Date Value 07/26/2023 3.7 Chloride (mmol/L) Date Value 07/26/2023 102 CO2 (mmol/L) Date Value 07/26/2023 25 Protein, Total (g/dL) Date Value 07/26/2023 7.7 Albumin (g/dL) Date Value 07/26/2023 4.4 Calcium, Total (mg/dL) Date Value 07/26/2023 10.5 (H) Alkaline Phosphatase (U/L) Date Value 07/26/2023 126 (H) Bilirubin, Total (mg/dL) Date Value 07/26/2023 0.2 AST (U/L) Date Value 07/26/2023 20 ALT (U/L) Date Value 07/26/2023 18 Cholesterol, Total (mg/dL) Date Value 02/28/2022 232 (H) Triglyceride (mg/dL) Date Value 02/28/2022 121 CEA (ng/mL) Date Value 07/26/2023 1.1 01/25/2023 1.2 03/22/2022 1.2 01/12/2022 1.3 12/15/2020 0.8 06/09/2020 0.7 03/17/2020 0.9 12/10/2019 1.0 09/08/2019 1.0 DIAGNOSIS: (Z85.038) 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cer (primary encounter diagnosis) Plan: CBC + DIFF, COMP METABOLIC PANEL, IRON + TIBC, FERRITIN BLD, VITAMIN B12 BLOOD, FOLATE SERUM, CEA BLD (E21.3) Hyperparathyroid (HCC) (E83.52) Hypercalcemia (N18.32) Stage 3b chronic kidney disease (HCC) (D64.9) Anemia, unspecified type Plan: CBC + DIFF, COMP METABOLIC PANEL, IRON + TIBC, FERRITIN BLD, VITAMIN B12 BLOOD, FOLATE SERUM, CEA BLD 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) History of stomach ulcers Hypercalcemia 01/13/2022 Hypertension Menopause Rectal cancer (HCC) Thyroid nodule PAST SURGICAL HISTORY Procedure Laterality Date APPENDECTOMY CHOLECYSTECTOMY HX COLONOSCOPY DILATION & CURETTAGE DX&/THER NONOBSTETRIC Dilation & curettage F SIGMOIDOSCOPY FLEXIBLE W BIOPSY PAST SURGICAL HISTORY OF 07/15/2014 Bilateral ureteral stent placement by Urology, laparotomy, lysis of adhesions, takedown of diverting loop ileostomy, partial proctectomy, completion colectomy and ileal resection in continuity, ilealJ-pouch anal anastomosis (CDH- 29), diverting loop ileostomy US GUIDED THYROID BIOPSY Social History Tobacco Use Smoking status: Never Smokeless tobacco: Never Vaping Use Vaping Use: Never used Substance Use Topics Alcohol use: No Drug use: No FAMILY HISTORY Problem Relation Age of Onset other (htn [Other]) Father Ischemic Heart Disease Father of massive [place] at 67 I spent a total of 30 minutes on the date of the service which included preparing to see the patient, [id number] patient care, completing clinical documentation, performing a medically appropriate examination, counseling and educating the patient/family/caregiver, ordering medications, tests, or p rocedures, communicating with other HCPs (not separately reported) and care coordination (not separately reported). Arnol Daugherty MD, CPE [facility] Provided at: [place], [place] Scribe Attestation: This note was scribed by Sangeeta Izaguirre on August 02, 2023 under the direction and supervision of Dr. Arnol Daugherty. I attest that all of the information documented is correct to the best of my knowledge. Provider Attestation: I, Arnol Daugherty MD, attest that all information documented by the above scribe is correct, and was supervised by me and under my direction. CC: Dr. Logan Aden documented in this encounterHol[facility]23 Miscellaneous Notes* Telephone Encounter - Facundo Llamas RN - 07/04/2023 3:53 PM EDT Pt aware all records sent to Dr Graf. She is aware his office will call to schedule, once reviewed. She denies further needs at this time. Facundo Llamas, CLAIRE * Telephone Encounter - Nargis Perdomo - 07/04/2023 3:42 PM EDT Records faxed to Dr. Graf. * Telephone Encounter - Sheron Alicia - 07/04/2023 3:13 PM EDT Maile: Information ready for you . I don't see where we ever got this! Sheron Duke Pss * Telephone Encounter - Facundo Llamas RN - 07/04/2023 2:33 PM EDT Pt called to inquire on ENT referral from 01/25/23 [facility] office visit. She called to Dr Graf office to check and they did not receive it. Instructions Return in about 6 months (around 07/28/2023). ENT C/S local please - Dr. Graf Continue following with Nephrology - needs uric acid addressed as well. - will defer treatment. RTC in 6 months - labs preceding week, re-scan if indicated. Referral to [facility] PSS: this referral is from 01/25/23. I do not see where it was ever sent? Facundo Llamas, RN documented in this encounterHolzer [facility] [place]08-28-2023 Miscellaneous Notes* Telephone Encounter - Ace Savage APRN.CNP - 05/21/2023 9:40 AM EDT The following approved medication requests have been denied. Requested Prescriptions Refused Prescriptions Disp Refills amLODIPine (NORVASC) 5 mg tablet [Pharmacy Med Name: amlodipine 5 mg tablet] 180 tablet 5 Sig: TAKE 1 TABLET BY MOUTH TWICE DAILY Refused By: ACE SAVAGE Reason for Refusal: A Refill not appropriate Seeing patient on a 6 month basis. She should contact her PCP for refills. Ace Savage APRN.PILI documented in this encounterHolzer [facility] [place]05-15-2023 Miscellaneous Notes* Telephone Encounter - Ghazala Humphrey MD - 02/05/2023 11:54 AM EDT I sent a [employer] message with a request for a notification if the message is not read. Ghazala Humphrey MD, RONI documented in this encounterHolzer [facility] [place]05-04-2023 Instructions* Patient Instructions* Arnol Daugherty MD - 01/25/2023 3:36 PM EDT ENT C/S local please - Dr. Graf Continue following with Nephrology - needs uric acid addressed as well. - will defer treatment. RTC in 6 months - labs preceding week, re-scan if indicated. Referral to [facility] documented in this encounterHolzer [facility] [place]05-04-2023 History of Present illness Narrative* Arnol Daugherty MD - 01/25/2023 2:45 PM EDT Images from the original note were not included. NAME: Aleksander Barger [facility] NO.: [id number] DATE OF SERVICE: January 25, 2023 (Michelle) Some elements in this clinic note that are critical to medical decision making have been carefully reviewed and included from a prior clinic note dated: July 27, 2022 (Michelle) Referring Provider: Dr. Stock Additional Clinicians involved in Aleksander Barger's care: Logan Gomez Assessment: (N18.32) Chronic renal failure, stage 3b (HCC) (primary encounter diagnosis) (E83.52) Hypercalcemia T3N1b Rectal cancer status post hemicolectomy August 2013. MSI stable Completed course of adjuvant chemotherapy. Did not tolerate well FOLFOX regimen. - was hospitalized Recurrent stage II colon cancer T2N0 in May 2014. Require a completion colectomy. No adjuvant therapy. Persisting Ascites mild - continue monitoring Other vitamin B12 deficiency anemia - Previously had a low B12 level found in 2014. Did receive monthly B12 IM from [id number] with no improvement. Will monitor with labs every 6months CKD (chronic kidney disease) stage 3, GFR 30-59 ml/min Possibly contributing to her anemia. Will Monitor and consider erythropoetin if hgb drops >9.9 Hypercalcemia seems worse - iPTH was elevated February - referral back to ENT. PLAN: ENT C/S local please - Dr. Graf Continue following with Nephrology - needs uric acid addressed as well. - will defer treatment. RTC in 6 months - labs preceding week, re-scan if indicated. Referral to [facility] HPI: Updated Visit, January 25, 2023: Sees Dr. Bowen at [facility] and managing chronic kidney disease. Not sure why uric acid is elevated at9. Most recent scans show no evidence of disease. Pulmonary nodules are stable. Ascites resolved. Still getting salivary stones. Hypercalcemia is worse. 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 Updated Visit, July 27, 2022: Gisselle presents and is doing well but has numerous concerns and questions regarding her kidneys as well as persisting hypercalcemia. She's like a nephrology opinion closer to home. Additionally, we reviewed the CT's and she has stable findings with no evidence of recurrence. Updated Visit, March 22, 2022: Following consult with Nephrology was started on fluid restriction as well as Ure-Na powder but is still having concerns. I reviewed her labs and reassured her. We will re-draw labs and make sure to send results to her [facility] also. Updated Visit, January 26, 2022: Called regarding hypercalcemia which is a chronic problem for her. probably associated with renal failure. Will send her to see nephrology. She also has a salivary stone - I recommended that she see Dr. Graf. Updated Visit, January 12, 2022: Had mammograms in [place] last week which were clear. Otherwise doing well. Didn't have labs today and so will obtain. 01/09/2022 mammograms: BIRADS 1 - Negative. Normal interval follow-up in 12 months. 01/04/2022 CT CAP w/Cont: Chest: 1. Again seen are scattered small noncalcified pulmonary nodules which are overall nonspecific. Themajority are unchanged, however there are at least two new nodules (since 03/08/2020) measuring 0.3-0.4 cm within the right middle lobe and right lower lobe. These may represent sites of small airways inflammation or mucous plugging. Continued attention on subsequent studies is suggested. 2. No lymphadenopathy. 3. Please refer to concurrently acquired and separately reported abdomen CT for findings related tothe upper abdomen. Abdomen / Pelvis: 1. Focal wall thickening involving right mid abdominal jejunal loops with associated interloop ascites, suggestive of enteritis. Correlation with clinical symptoms is suggested. If warranted, consideration could be given to further assessment with contrast-enhanced CT of the abdomen/pelvis. 2. No evidence of metastatic disease within the limitations of a noncontrast examination. 3. No lymphadenopathy. Updated Visit, December 15, 2020: Aleksander is 75 yo and returns in follow up for a history of rectal cancer diagnosed and treted in 2012. And subsequent colon cancer in 2013. She had adjuvant therapy for her rectal cancer but didn't need anything following her colon cancer except for a full colectomy. She is looking for a new PCP and will be seeing Dr. Gomez soon. She is behind on breast screeningand wanted an exam today with subsequent orders for mammography. No other complaints. Updated Visit, June 16, 2020: Reviewed CT's with no evidence of recurrence. Ascites is minimal. Left flank pain occurred briefly a few weeks ago and resolved overnight Always has loose stools. Updated Visit, March 17, 2020: This is a 75 year old female Had slight enteritis prior to recent CT on 03/08/2020 - which explains the pelvic ascites. Will follow to resolution. Due to chronic diarrhea, she remains dehydrated. Had ileostomy but then a year later recurred in 2013. - had colectomy Case Hx: 04/2013 : imaging obtained due to abdominal discomfort notes circumferential wall thickening of the sigmoid colon 06/2013 : colonoscopy notes obstructing rectal mass at 15 cm from anal verge- positive for moderately differentiated adenocarcinoma- staging imaging included thyroid nodule (biopsy negative for malignancy) 08/2013 : referred to [facility] main and completed subtotal colectomy and proctosigmoidectomy pathology notes [id number] disease ( 2 of 15 lymph nodes involved)- low grade adenocarcinoma (MSI stable) 11/2013 : starts adjuvant folfox, does not tolerate regimen- completes three cycles of therapy but requires two trips to ER and one admission 02/2014 : completes four further cycles of single agent 5fu- again did require hospitalization for pre-renal azotemia- therapy discontinued 05/2014 : colonoscopy notes adenocarcinoma with high grade dysplasia- completes colectomy pT2N0 moderately differentiated adenocarcinoma - given previous difficulty with adjuvant treatment- therapy deferred She also has a history of anemia and was on B12 supplements from [id number], however it was felt it had little benefit and these injections were stopped. She does have Stage 3 chronic kidney disease. Today her anemia appears stable. RADIOGRAPHIC DATA: Reviewed on December 15, 2020 4. 06/09/2020 CT Abd/Pelvis: 1. No evidence of intra-abdominal/pelvic metastases. No interval changesince 03/08/2020. 2. Nonspecific trace loculated ascites/soft tissues prominence in the left hemipelvis, stable. 3. 03/08/2020 CT CAP w/o IV cont: Chest: 1. Bilateral subcentimeter pulmonary nodules, unchanged from prior study of 09/01/2019. 2. No substantial intrathoracic adenopathy is identified. Abd/Pelvis: 1. Small amount of abdominal and pelvic ascites, a new finding, as above. 2. Mild, diffuse small bowel wall thickening is appreciated within the pelvis, a nonspecific finding. This may relate to prior radiation therapy. 3. A minimally prominent retroperitoneal lymph node is again noted, unchanged from the prior study of 09/01/2019. 2. ct c/a/p without contrast 09/01/19 1. Subcentimeter right-sided pulmonary nodules, stable. There has been interval resolution of previously identified small reticulonodular infiltrate within the right lower lobe. 2. Ectasia of the ascending thoracic aorta, unchanged. 3. Heterogeneous enlargement of the right lobe of the thyroid gland, right lobe thyroid hypodensity, felt to be stable, poorly characterized on these unenhanced images. 1. Minimally prominent aortocaval retroperitoneal lymph node appears unchanged from the prior studyof 09/03/2018. 2. Otherwise, essentially unremarkable postoperative appearance to the abdomen and pelvis. 1. Ct Chest 09/03/18 1. Stable subcentimeter right-sided pulmonary nodules, as above. 2. Heterogeneous enlargement of the right lobe of the thyroid gland, areas of decreased attenuationinvolving the right lobe, not as well characterized on these unenhanced images, however, stable. 3. Mild ectasia of the ascending thoracic aorta, stable. CT abdomen and pelvis 09/03/18 1. Stable appearance to a minimally prominent retroperitoneal lymph node, as above. 2. Postoperative changes. No definite CT evidence for metastatic or recurrent on these unenhanced images REVIEW OF SYSTEMS Per HPI and otherwise negative by full review of organ systems. ECOG PERFORMANCE STATUS: 0 PHYSICAL EXAMINATION: Vitals: BP 147/75 Pulse 85 Temp (Src) 97.8 (Temporal) Resp 16 Ht 5' 1.496 (1.56m) Wt 171lb (77.6kg) SpO2 98% BMI 31.79 kg/(m^2). Body surface area is 1.83 meters squared. Exam limited to gross visualization where appropriate. Gen.: This is an age-appropriate patient in no acute distress. Head: Appears atraumatic with no visible lesions. Eyes: Pupils equally round and reactive to light, extraocular muscles are intact. Neck: Supple. Respiratory: Appears to be respiring comfortably. Neurologic: Nonfocal to gross visualization. Alert and oriented 3. Psychiatric: No evidence of inappropriate anxiety or depression. Skin: Visible areas of skin without rash, lesions, wounds or petechiae. ALLERGIES: ALLERGIES Allergen Reactions Dtap-Ipv Component * Other: See Comments Maria Alejandra [place] Flu Vac 2019 65up-A* Other: See Comments Valeria [place] Pneumococcal Vaccine Other: See Comments Maria Alejandra [place] Penicillins Unknown Tetracyclines Rash MEDICATIONS: amLODIPine (NORVASC) 5 mg tablet Take 1 tablet by mouth twice daily. Cholecalciferol, Vitamin D3, 50 mcg (2,000 unit) cap Magnesium 250 mg tab zinc sulfate (ZINC-15 ORAL) MEDICATION, NON-DATABASE Take 1 capsule by mouth once daily. RESTORE (EYE PROMISE) Multivitamin capsule Take 1 capsule by mouth once daily. aspirin, enteric coated (ASPIRIN, ENTERIC COATED) 81 mg EC tablet Take 81 mg by mouth once daily. LOPERAMIDE HCL (IMODIUM ORAL) Take by mouth as needed. LABORATORY VALUES: WBC (k/uL) Date Value 01/25/2023 7.24 RBC (m/uL) Date Value 01/25/2023 4.06 Hemoglobin (g/dL) Date Value 01/25/2023 12.3 Hematocrit (%) Date Value 01/25/2023 38.1 MCV (fL) Date Value 01/25/2023 93.8 MCH (pg) Date Value 01/25/2023 30.3 MCHC (g/dL) Date Value 01/25/2023 32.3 RDW-CV (%) Date Value 01/25/2023 13.3 Platelet Count (k/uL) Date Value 01/25/2023 319 MPV (fL) Date Value 01/25/2023 10.0 Glucose (mg/dL) Date Value 01/25/2023 92 BUN (mg/dL) Date Value 01/25/2023 23 (H) Creatinine (mg/dL) Date Value 01/25/2023 1.40 (H) Sodium (mmol/L) Date Value 01/25/2023 135 (L) Potassium (mmol/L) Date Value 01/25/2023 3.9 Chloride (mmol/L) Date Value 01/25/2023 98 CO2 (mmol/L) Date Value 01/25/2023 28 Protein, Total (g/dL) Date Value 01/25/2023 7.8 Albumin (g/dL) Date Value 01/25/2023 4.6 Calcium, Total (mg/dL) Date Value 01/25/2023 11.4 (H) Alkaline Phosphatase (U/L) Date Value 01/25/2023 89 Bilirubin, Total (mg/dL) Date Value 01/25/2023 0.3 AST (U/L) Date Value 01/25/2023 23 ALT (U/L) Date Value 01/25/2023 20 Cholesterol, Total (mg/dL) Date Value 02/28/2022 232 (H) Triglyceride (mg/dL) Date Value 02/28/2022 121 CEA (ng/mL) Date Value 03/22/2022 1.2 01/12/2022 1.3 12/15/2020 0.8 06/09/2020 0.7 03/17/2020 0.9 12/10/2019 1.0 09/08/2019 1.0 DIAGNOSIS: (E83.52) Hypercalcemia (primary encounter diagnosis) Plan: CONSULT TO ENT (E21.3) Hyperparathyroid (HCC) Plan: CONSULT TO ENT 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) History of stomach ulcers Hypercalcemia 01/13/2022 Hypertension Menopause Rectal cancer (HCC) Thyroid nodule PAST SURGICAL HISTORY Procedure Laterality Date APPENDECTOMY CHOLECYSTECTOMY HX COLONOSCOPY DILATION & CURETTAGE DX&/THER NONOBSTETRIC Dilation & curettage F SIGMOIDOSCOPY FLEXIBLE W BIOPSY PAST SURGICAL HISTORY OF 07/15/2014 Bilateral ureteral stent placement by Urology, laparotomy, lysis of adhesions, takedown of diverting loop ileostomy, partial proctectomy, completion colectomy and ileal resection in continuity, ilealJ-pouch anal anastomosis ([facility]- 29), diverting loop ileostomy US GUIDED THYROID BIOPSY Social History Tobacco Use Smoking status: Never Smokeless tobacco: Never Vaping Use Vaping Use: Never used Substance Use Topics Alcohol use: No Drug use: No FAMILY HISTORY Problem Relation Age of Onset other (htn [Other]) Father Ischemic Heart Disease Father of massive [place] at 67 I spent a total of 40 minutes on the date of the service which included preparing to see the patient, [id number] patient care, completing clinical documentation, performing a medically appropriate examination, counseling and educating the patient/family/caregiver, ordering medications, tests, or p rocedures, communicating with other HCPs (not separately reported) and care coordination (not separately reported). Arnol Daugherty MD, CPE Hematology and Oncology Services Provided at: [place], [place] CC: Dr. Logan Aden documented in this encounterHol[facility] Evaluation note* Encounter Date Diagnosis Assessment Notes Treatment Notes Treatment Clinical Notes Dec, Acute sinusitis, recurrence not specified, unspecified location (ICD-10 - J01.90) Sinusitis home care material was printed Drink plenty fluids, get plenty of rest. Continue home medications as prescribed. Take the cephalexin and Medrol Dosepak as prescribed until gone. Use the Flonase nasal spray as prescribed until your symptoms improve. Use the albuterol inhaler as prescribed as needed for cough or shortness of breath. Follow-up with your family physician if no improvement in 2 to 3 days. Take Tylenol or Motrin as needed for aches pains or fevers Dec, Bronchitis (ICD-10 - J40) Poppin Other 02-01-2023 Miscellaneous Notes* Telephone Encounter - Ghazala Humphrey MD - 10/25/2022 6:58 PM EST I called patient, not available. I left a message to check [employer] message. I sent a [employer] message with a request for a notification if the message is not read. Ghazala Humphrey MD, MBA * Telephone Encounter - Ghazala Humphrey MD - 10/24/2022 7:15 PM EST I called patient, not available. I left a message that I will call back. Ghazala Humphrey MD, MBA * Telephone Encounter - Ghazala Humphrey MD - 10/22/2022 2:00 PM EST Thyroid ultrasound showed a right thyroid nodule 3.8 x 2.4 x 1.9 cm , TR5, that increased in size since 2017. FNA is recommended. I will call patient. Ghazala Humphrey MD, MBA documented in this encounterHolzer [facility] [place]12-06-2022 Instructions* Patient Instructions* Ghazala Humphrey MD - 08/29/2022 11:37 AM EST Please arrange for thyroid ultrasound to be done (good chance, we will arrange for thyroid biopsy at a later step) Kindly, have a 24 hour urine collection done. Whey you submit the 24 hour urine collection, you should have a fasting blood work done. If urine calcium is normal or elevated, we will consult endocrine surgeon for a consideration of removal of a parathyroid gland COLLECTING URINE FOR 24 HOURS: 1. Obtain the container/tool from the lab, a day or two before planned day for the 24 hour urine collection. 2. Best done the morning of one day to the morning of the next day ( two consecutive mornings). 3. Imperative that you arise from bed at the exact same time on Day 1 and Day 2. 4. When you arise on Day 1 you will have to urinate. This goes into the toilet and is flushed away. 5. Every time from then on for the remainder of Day 1 and at night Day 1 to Day 2, every drop of urine that you pass must go into the container that we will provide for you. 6. When you arise on Day 2 you will also have to urinate. This goes into the container and completes the urine collection. 7. The container should be kept refrigerated until it is turned in to the laboratory. 8. Bring the completed urine collection container to the laboratory as soon as possible. documented in this encounterHolzer [facility] [place]12-06-2022 History of Present illness Narrative* Ghazala Humphrey MD - 08/29/2022 10:57 AM EST HISTORY OF PRESENT ILLNESS: Patient is seen today in follow up for hypercalcemia, hyperparathyroidism and osteopenia. Patient is taking vitamin D 2,000 IU daily. She is not taking calcium supplement. Patient joined a [employer] and started exercising (chair and balance exercising), 2-3 times a week. Patient had a CT scan of neck, soft tissue because of salivary gland tissue. A right thyroid nodule2.5 cm. Patient had reported a history of thyroid nodule, CT scan of the chest December, indicated heterogeneous appearance of the gland. Patient reports a prior FNA in 2012, outside facility. It is reported to be stable. Review of Systems Constitutional: Negative for night sweats and recent unintentional weight change. Eyes: Negative for visual disturbance. Respiratory: Negative for difficulty breathing. Cardiovascular: Negative for chest pain. Gastrointestinal: Negative for nausea and vomiting. Genitourinary: Negative for frequent urination. Musculoskeletal: Negative for myalgias. Neurological: Negative for dizziness and headaches. Endo/Heme/Allergies: Negative for polydipsia. PHYSICAL EXAMINATION: BP 147/68 Pulse 70 Ht 156.2 cm (5' 1.5 ) Wt 76.7 kg (169 lb) BMI 31.42 kg/m HEENT: no pallor or jaundice, no exophthalmous or lid lag Neck: no thyromegaly, no adenopathy, no thyroid or carotid bruit. Heart: RRR no murmur or gallop Deep tendon reflexes are + 2 with normal relaxation phase and no tremor in upper extremities. MPRESSION AND PLAN: 1. Hypercalcemia, mild and intermittent. Patient has associated hyperparathyroidism. Primary hyperparathyroidism is the most likely diagnosis. Familial hypocalciuric hypercalcemia is less likely/uncommon. Patient has associated osteopenia of multiple sites, per DEXA scan May, 2022. Use of a bisphosphonate is not favored because of low eGFR. Prolia treatment is a good option. Insurance coverage is in question, she does not have osteoporosis. We discussed the option of surgery for the management of primary hyperparathyroidism. This was discussed in details. She is willing to consult with endocrine surgery. However, first we should rule out FHH (though it is rare). Labs are ordered. Please see patient instruction section for further details. 2. Goiter: history of FNA in 2012, reported to be benign per patient. Goiter is not palpable on exam. CT scan of the chest December, indicated heterogeneous appearanceof the gland. A more recent CT of the neck soft tissue, Jun, 2022 showed a right nodule 2.5 cm. Obtain thyroid ultrasound and consider FNA of this nodule. If the patient were to have a parathyroid surgery and FNA is either suspicious or confirmative of amalignancy, then thyroid surgery could be done at the same time. Patient expressed understanding and agreed with plan. Ghazala Humphrey MD, RONI Answers submitted by the patient for this visit: Core Review of Systems (Submitted on 08/25/2022) Fever : No Night Sweats: No Recent Unintentional Weight Change: No Nasal Congestion: No Hearing Loss: No Vision Disturbance: No A Cough: No Difficulty Breathing?: No Chest Pain: No Irregular Heart Beat: No Nausea: No Black Tarry Stools: No Difficulty Urinating?: No Awaken at Night More Than Once to Urinate?: No Joint Pain or Stiffness: No Muscle Aches: No Leg or Foot Discomfort at Night?: No A Rash: No Dizziness: No Headaches: No Memory Loss: No Seizures: No documented in this encounterHolzer [facility] [place]12-05-2022 Miscellaneous Notes* Telephone Encounter - Sheron Duke [facility] - 08/28/2022 2:[address] Foster office check on this referral. His office stated they have been trying to reach patient by phone but unable to leave messages due to patient does not have V/M. Verified phone number we have for patient with number they were calling and it did not match the number they had. They willtry and call patient sometime today. Sheron Duke Pss * Telephone Encounter - Sheron Roth [facility] - 08/23/2022 9:39 AM EST Left message for Dr Kristin prieto to call us back regarding status of this referral. Sheron Duke Pss * Telephone Encounter - Sheron Roth [facility] - 08/14/2022 9:[address] Kristin prieto spoke with Mandie. She states they will be calling patient sometime today or tomorrow to get scheduled. Mandie states she will call our office back let us know when they have scheduled. Sheron Duke [facility] * Telephone Encounter - Sheronluke Duke [facility] - 08/10/2022 3:08 PM EST Left message for Dr Kristin prieto to call us back regarding status of this referral. Sheron Duke Pss * Telephone Encounter - Sheronluke Duke [facility] - 08/07/2022 9:[address] Kristin prieto spoke with Mandie. She states they are working on calling patient to get scheduled. Sheron Duke Pss * Telephone Encounter - Sheronluke Duke [facility] - 08/02/2022 9:[address] Kristin prieto [phone] spoke with Sho. She states their office has been short staffedand are behind on faxes. She took all patient information and will be checking faxes and reviewing records and will call patient to schedule. She has asked us to call back later this week regarding status of this referral. Sheron Duke Pss * Telephone Encounter - Nargis Smith [facility] - 07/28/2022 8:52 AM EDT Records faxed to Dr. Foster. * Telephone Encounter - Felicity Thomas - 07/27/2022 3:51 PM EDT Nephrology C/S local please Maile/Jovany: Can you please refer patient to Dr. Jones's office? Thanks! Felicity Thomas documented in this encounterHolzer [facility] [place]11-03-2022 Instructions* Patient Instructions* Arnol Daugherty MD - 07/27/2022 11:53 AM EDT Nephrology C/S local please RTC in 6 months - labs preceding week documented in this encounterHolzer [facility] [place]11-03-2022 History of Present illness Narrative* Arnol Daugherty MD - 07/27/2022 11:30 AM EDT Images from the original note were not included. NAME: Charbel Aleksander CLINIC NO.: [id number] DATE OF SERVICE: July 27, 2022 (Michelle) Some elements in this clinic note that are critical to medical decision making have been carefully reviewed and included from a prior clinic note dated: March 22, 2022 Referring Provider: Dr. Stock Additional Clinicians involved in Aleksander Barger's care: Logan Gomez Assessment: (N18.32) Chronic renal failure, stage 3b (HCC) (primary encounter diagnosis) (E83.52) Hypercalcemia T3N1b Rectal cancer status post hemicolectomy August 2013. MSI stable Completed course of adjuvant chemotherapy. Did not tolerate well FOLFOX regimen. - was hospitalized Recurrent stage II colon cancer T2N0 in May 2014. Require a completion colectomy. No adjuvant therapy. Persisting Ascites mild - continue monitoring Other vitamin B12 deficiency anemia - Previously had a low B12 level found in 2014. Did receive monthly B12 IM from [id number] with no improvement. Will monitor with labs every 6months CKD (chronic kidney disease) stage 3, GFR 30-59 ml/min Possibly contributing to her anemia. Will Monitor and consider erythropoetin if hgb drops >9.9 Hypercalcemia seems worse - iPTH normal. Responsive to Hydration. Gave 1 dose of Xgeva 03/24/2022 PLAN: Nephrology C/S local please RTC in 6 months - labs preceding week, re-scan in 12 months if indicated. HPI: Updated Visit, July 27, 2022: Gisselle presents and is doing well but has numerous concerns and questions regarding her kidneys as well as persisting hypercalcemia. She's like a nephrology opinion closer to home. Additionally, we reviewed the CT's and she has stable findings with no evidence of recurrence. Updated Visit, March 22, 2022: Following consult with Nephrology was started on fluid restriction as well as Ure-Na powder but is still having concerns. I reviewed her labs and reassured her. We will re-draw labs and make sure to send results to her [employer] also. Updated Visit, January 26, 2022: Called regarding hypercalcemia which is a chronic problem for her. probably associated with renal failure. Will send her to see nephrology. She also has a salivary stone - I recommended that she see Dr. Graf. Updated Visit, January 12, 2022: Had mammograms in [place] last week which were clear. Otherwise doing well. Didn't have labs today and so will obtain. 01/09/2022 mammograms: BIRADS 1 - Negative. Normal interval follow-up in 12 months. 01/04/2022 CT CAP w/Cont: Chest: 1. Again seen are scattered small noncalcified pulmonary nodules which are overall nonspecific. Themajority are unchanged, however there are at least two new nodules (since 03/08/2020) measuring 0.3-0.4 cm within the right middle lobe and right lower lobe. These may represent sites of small airways inflammation or mucous plugging. Continued attention on subsequent studies is suggested. 2. No lymphadenopathy. 3. Please refer to concurrently acquired and separately reported abdomen CT for findings related tothe upper abdomen. Abdomen / Pelvis: 1. Focal wall thickening involving right mid abdominal jejunal loops with associated interloop ascites, suggestive of enteritis. Correlation with clinical symptoms is suggested. If warranted, consideration could be given to further assessment with contrast-enhanced CT of the abdomen/pelvis. 2. No evidence of metastatic disease within the limitations of a noncontrast examination. 3. No lymphadenopathy. Updated Visit, December 15, 2020: Aleksander is 75 yo and returns in follow up for a history of rectal cancer diagnosed and treted in 2012. And subsequent colon cancer in 2013. She had adjuvant therapy for her rectal cancer but didn't need anything following her colon cancer except for a full colectomy. She is looking for a new PCP and will be seeing Dr. Gomez soon. She is behind on breast screeningand wanted an exam today with subsequent orders for mammography. No other complaints. Updated Visit, June 16, 2020: Reviewed CT's with no evidence of recurrence. Ascites is minimal. Left flank pain occurred briefly a few weeks ago and resolved overnight Always has loose stools. Updated Visit, March 17, 2020: This is a 75 year old female Had slight enteritis prior to recent CT on 03/08/2020 - which explains the pelvic ascites. Will follow to resolution. Due to chronic diarrhea, she remains dehydrated. Had ileostomy but then a year later recurred in 2013. - had colectomy Case Hx: 04/2013 : imaging obtained due to abdominal discomfort notes circumferential wall thickening of the sigmoid colon 06/2013 : colonoscopy notes obstructing rectal mass at 15 cm from anal verge- positive for moderately differentiated adenocarcinoma- staging imaging included thyroid nodule (biopsy negative for malignancy) 08/2013 : referred to [facility] and completed subtotal colectomy and proctosigmoidectomy pathology notes [id number] disease ( 2 of 15 lymph nodes involved)- low grade adenocarcinoma (MSI stable) 11/2013 : starts adjuvant folfox, does not tolerate regimen- completes three cycles of therapy but requires two trips to ER and one admission 02/2014 : completes four further cycles of single agent 5fu- again did require hospitalization for pre-renal azotemia- therapy discontinued 05/2014 : colonoscopy notes adenocarcinoma with high grade dysplasia- completes colectomy pT2N0 moderately differentiated adenocarcinoma - given previous difficulty with adjuvant treatment- therapy deferred She also has a history of anemia and was on B12 supplements from [id number], however it was felt it had little benefit and these injections were stopped. She does have Stage 3 chronic kidney disease. Today her anemia appears stable. RADIOGRAPHIC DATA: Reviewed on December 15, 2020 4. 06/09/2020 CT Abd/Pelvis: 1. No evidence of intra-abdominal/pelvic metastases. No interval changesince 03/08/2020. 2. Nonspecific trace loculated ascites/soft tissues prominence in the left hemipelvis, stable. 3. 03/08/2020 CT CAP w/o IV cont: Chest: 1. Bilateral subcentimeter pulmonary nodules, unchanged from prior study of 09/01/2019. 2. No substantial intrathoracic adenopathy is identified. Abd/Pelvis: 1. Small amount of abdominal and pelvic ascites, a new finding, as above. 2. Mild, diffuse small bowel wall thickening is appreciated within the pelvis, a nonspecific finding. This may relate to prior radiation therapy. 3. A minimally prominent retroperitoneal lymph node is again noted, unchanged from the prior study of 09/01/2019. 2. ct c/a/p without contrast 09/01/19 1. Subcentimeter right-sided pulmonary nodules, stable. There has been interval resolution of previously identified small reticulonodular infiltrate within the right lower lobe. 2. Ectasia of the ascending thoracic aorta, unchanged. 3. Heterogeneous enlargement of the right lobe of the thyroid gland, right lobe thyroid hypodensity, felt to be stable, poorly characterized on these unenhanced images. 1. Minimally prominent aortocaval retroperitoneal lymph node appears unchanged from the prior studyof 09/03/2018. 2. Otherwise, essentially unremarkable postoperative appearance to the abdomen and pelvis. 1. Ct Chest 09/03/18 1. Stable subcentimeter right-sided pulmonary nodules, as above. 2. Heterogeneous enlargement of the right lobe of the thyroid gland, areas of decreased attenuationinvolving the right lobe, not as well characterized on these unenhanced images, however, stable. 3. Mild ectasia of the ascending thoracic aorta, stable. CT abdomen and pelvis 09/03/18 1. Stable appearance to a minimally prominent retroperitoneal lymph node, as above. 2. Postoperative changes. No definite CT evidence for metastatic or recurrent on these unenhanced images REVIEW OF SYSTEMS Per HPI and otherwise negative by full review of organ systems. ECOG PERFORMANCE STATUS: 0 PHYSICAL EXAMINATION: Vitals: BP 165/72 Pulse 73 Temp (Src) 97.6 (Temporal) Resp 16 Ht 5' .984 (1.55m) Wt 168 lb (76.2kg) SpO2 99% BMI 31.76 kg/(m^2). Body surface area is 1.81 meters squared. Exam limited to gross visualization where appropriate due to COVID-19. Gen.: This is an age-appropriate patient in no acute distress. Head: Appears atraumatic with no visible lesions. Eyes: Pupils equally round and reactive to light, extraocular muscles are intact. Neck: Supple. Mouth: Masked. Respiratory: Appears to be respiring comfortably. Neurologic: Nonfocal to gross visualization. Alert and oriented 3. Psychiatric: No evidence of inappropriate anxiety or depression. Skin: Visible areas of skin without rash, lesions, wounds or petechiae. ALLERGIES: ALLERGIES Allergen Reactions Dtap-Ipv Component * Other: See Comments Maria Alejandra [place] Flu Vac 2019 65up-A* Other: See Comments Valeria [place] Pneumococcal Vaccine Other: See Comments Maria Alejandra [place] Penicillins Unknown Tetracyclines Rash MEDICATIONS: amLODIPine (NORVASC) 5 mg tablet Take 1 tablet by mouth twice daily. Cholecalciferol, Vitamin D3, 50 mcg (2,000 unit) cap Magnesium 250 mg tab zinc sulfate (ZINC-15 ORAL) MEDICATION, NON-DATABASE Take 1 capsule by mouth once daily. RESTORE (EYE PROMISE) Multivitamin capsule Take 1 capsule by mouth once daily. aspirin, enteric coated (ASPIRIN, ENTERIC COATED) 81 mg EC tablet Take 81 mg by mouth once daily. LOPERAMIDE HCL (IMODIUM ORAL) Take by mouth as needed. LABORATORY VALUES: WBC (k/uL) Date Value 07/26/2022 8.59 RBC (m/uL) Date Value 07/26/2022 4.05 Hemoglobin (g/dL) Date Value 07/26/2022 12.1 Hematocrit (%) Date Value 07/26/2022 37.5 MCV (fL) Date Value 07/26/2022 92.6 MCH (pg) Date Value 07/26/2022 29.9 MCHC (g/dL) Date Value 07/26/2022 32.3 RDW-CV (%) Date Value 07/26/2022 13.2 Platelet Count (k/uL) Date Value 07/26/2022 255 MPV (fL) Date Value 07/26/2022 10.1 Glucose (mg/dL) Date Value 07/26/2022 91 BUN (mg/dL) Date Value 07/26/2022 23 (H) Creatinine (mg/dL) Date Value 07/26/2022 1.35 (H) Sodium (mmol/L) Date Value 07/26/2022 137 Potassium (mmol/L) Date Value 07/26/2022 4.2 Chloride (mmol/L) Date Value 07/26/2022 99 CO2 (mmol/L) Date Value 07/26/2022 28 Protein, Total (g/dL) Date Value 07/26/2022 7.8 Albumin (g/dL) Date Value 07/26/2022 4.8 Calcium, Total (mg/dL) Date Value 07/26/2022 11.0 (H) Alkaline Phosphatase (U/L) Date Value 07/26/2022 72 Bilirubin, Total (mg/dL) Date Value 07/26/2022 0.4 AST (U/L) Date Value 07/26/2022 25 ALT (U/L) Date Value 07/26/2022 17 Cholesterol, Total (mg/dL) Date Value 02/28/2022 232 (H) Triglyceride (mg/dL) Date Value 02/28/2022 121 CEA (ng/mL) Date Value 03/22/2022 1.2 01/12/2022 1.3 12/15/2020 0.8 06/09/2020 0.7 03/17/2020 0.9 12/10/2019 1.0 09/08/2019 1.0 DIAGNOSIS: (C18.9) Malignant neoplasm of colon, unspecified part of colon (HCC) (primary encounter diagnosis) Plan: CBC + DIFF, COMP METABOLIC PANEL, IRON + TIBC, FERRITIN BLD, VITAMIN B12 BLOOD, FOLATE SERUM (N18.32) Stage 3b chronic kidney disease (HCC) Plan: CONSULT TO KIDNEY MEDICINE (E83.52) Hypercalcemia Plan: CONSULT TO KIDNEY MEDICINE (C20) Malignant neoplasm of rectum (HCC) (D64.9) Anemia, unspecified type Plan: CBC + DIFF, COMP METABOLIC PANEL, IRON + TIBC, FERRITIN BLD, VITAMIN B12 BLOOD, FOLATE SERUM 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) History of stomach ulcers Hypercalcemia 01/13/2022 Hypertension Menopause Rectal cancer (HCC) Thyroid nodule PAST SURGICAL HISTORY Procedure Laterality Date APPENDECTOMY CHOLECYSTECTOMY HX COLONOSCOPY DILATION & CURETTAGE DX&/THER NONOBSTETRIC Dilation & curettage F SIGMOIDOSCOPY FLEXIBLE W BIOPSY PAST SURGICAL HISTORY OF 07/15/2014 Bilateral ureteral stent placement by Urology, laparotomy, lysis of adhesions, takedown of diverting loop ileostomy, partial proctectomy, completion colectomy and ileal resection in continuity, ilealJ-pouch anal anastomosis ([facility]- 29), diverting loop ileostomy US GUIDED THYROID BIOPSY Social History Tobacco Use Smoking status: Never Smokeless tobacco: Never Vaping Use Vaping Use: Never used Substance Use Topics Alcohol use: No Drug use: No FAMILY HISTORY Problem Relation Age of Onset other (htn [Other]) Father Ischemic Heart Disease Father of massive [place] at 67 I spent a total of 30 minutes on the date of the service which included preparing to see the patient, [id number] patient care, completing clinical documentation, performing a medically appropriate examination, counseling and educating the patient/family/caregiver, ordering medications, tests, or p rocedures, communicating with other HCPs (not separately reported) and care coordination (not separately reported). Arnol Daugherty MD, CPE Hematology and Oncology Services Provided at: [place], [place] CC: [address] [id number] [address] Logan Gomez documented in [facility] History of Present illness Narrative* Mallory Stover, RT(R) - 07/26/2022 12:45 PM EDT RADIOLOGY SERVICE PROGRESS NOTE SERVICE DATE: 07/26/2022 SERVICE TIME: 1:38 PM PATIENT IDENTITY VERIFICATION COMPLETED USING TWO (2) STANDARD IDENTIFIERS: Name and Date of confirmed by patient verbally FALL SCREENING: Has the patient had 2 falls in the last year or 1 fall with injury or currently using an Ambulatory Assistive Device (Walker, Cane, Wheelchair, Crutches, etc.)? No PATIENT GENDER DATA: .female : No ALLERGIES: Reviewed and unchanged MEDICATIONS REVIEWED: Not applicable PATIENT RELEVANT IMPLANT DATA REVIEWED: Not Applicable CREATININE: Creatinine Date Value Ref Range Status 07/26/2022 1.35 (H) 0.58 - 0.96 mg/dL Final 03/30/2022 1.18 (H) 0.58 - 0.96 mg/dL Final 03/24/2022 1.46 (H) 0.58 - 0.96 mg/dL Final Estimated Glomerular Filtration Rate Date Value Ref Range Status 07/26/2022 40 (L) >=60 mL/min/1.73m Final Comment: Estimated Glomerular Filtration Rate (eGFR) is calculated using the 2020 CKD-EPI creatinine equation. This equation utilizes serum creatinine, sex, and age as parameters. The creatinine assay has traceable calibration to isotope dilution- mass spectrometry. Refer to KDIGO guidelines for clinical interpretation. In patients with unstable renal function, e.g. those with acute kidney injury, the eGFRmay not accurately reflect actual GFR. eGFR- Date Value Ref Range Status 12/15/2020 55 Final P.O.C.T. RESULTS: N/A July 26, [address] PERFORMED: Yes. RADIOLOGIST NOTIFIED?: No CONTRAST ALLERGY: NO. PREMEDICATED: Not applicable CONTRAST: IV 150 ml IV contrast (300) given and Oral Omnipaque 240 DIABETIC PATIENT: Not applicable IV SITE: Ambulatory: A peripheral IV was started in the Left antecubital site with a Angio cath: 20gauge. POST EXAM PIV STATUS: Discontinued PROCEDURE TYPE: CT Chest/Abdomen/Pelvis with contrast PATIENT DISCHARGED TO: Ambulatory patient, left [place] department area. A Diagnostic radioactive procedure has taken place, with no further precautions necessary other than routine body substance precautions. More information regarding radiation safety can be found usingthis link: [email or web address] SIGNATURE: RT Eran(R) PATIENT NAME: Aleksander Barger DATE: July 26, 2022 TIME: 1:38 PM PAGER/CONTACT #: documented in this encounterHol[facility] [place]-26-[facility]22 History of Present illness Narrative* Mallory Stover RT(R) - 07/19/2022 9:30 AM EDT Radiology Service Progress Note PATIENT NAME: Aleksander Barger DATE OF SERVICE: July 19, 2022 TIME: 10:57 AM PATIENT IDENTITY VERIFICATION COMPLETED USING TWO (2) IDENTIFIERS: Name and Date of confirmedby patient verbally. FALL SCREENING: Has the patient had 2 falls in the last year or 1 fall with injury or currently using an Ambulatory Assistive Device (Walker, Cane, Wheelchair, Crutches, etc.)? No PATIENT GENDER DATA: Female. status: : No status: NO. PATIENT RELEVANT IMPLANT DATA REVIEWED: Not Applicable RADIOLOGY DEPARTMENT: CT; Exam(s) Completed: Neck PERIPHERAL IV DATA: Not applicable SIGNED BY: RT Eran(R) July 19, 2022 10:57 AM documented in this encounterHol[facility] [place]10-21-2022 Miscellaneous Notes* Telephone Encounter - Arnol Daugherty MD - 07/14/2022 5:37 PM EDT Thanks - signed * Telephone Encounter - Maribel De La Torre RN - 07/14/2022 3:23 PM EDT Aleksander called requesting a referral to see Dr. Graf. She states that you told her last time she was in to see an ENT for her neck issues. She has seen Dr. Graf in the past but needs a new referral. ELANA: Please review and sign order if you agree Triage: Please fax order to [phone] documented in this encounterHol[facility] [place]10-11-2022 History of Present illness Narrative* Arash Cavazos MD - 07/04/2022 4:00 PM EDT Images from the original note were not included. [facility] NEPHROLOGY FOLLOW UP NOTE Patient Name: Aleksander Barger CHIEF COMPLAINT: CKD HPI: 77 y/o female with h/o obesity class 2 (BMI 32.4), PUD, gastric ulcerrs, HTN, diverticulitis, GBS, T3N1b rectal cancer s/p subtotal colectomy and proctosigmoidectomy 08/2013; s/p recurrent stage II colon cancer T2N0 requiring bilateral ureteral stent placement, laparotomy, DIAMOND, takedown of diverting loop ileostomy, partial proctectomy, completion colectomy, ileal resection in continuity, ileal J-pouch anal anastomosis, and diverting loop ileostomy 07/15/14; intolerant of FOLFOX and 5FU; pulmonary nodules, thyroid nodule, ectasia of ascending aorta, ascites, chronic left hydronephrosis without obstruction, vitamin B12 deficiency, hyperparathyroidism, anemia in CKD, hypercalcemia that improved with intravenous hydration, right renal cyst, RAMEZ, and CKD stage 3a, who requested to have a virtual videoconference encounter for f/u of CKD. Virtual videoconference encounter per patient's request. 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) History of stomach ulcers Hypercalcemia 01/13/2022 Hypertension Menopause Rectal cancer (HCC) Thyroid nodule PAST SURGICAL HISTORY: PAST SURGICAL HISTORY Procedure Laterality Date APPENDECTOMY CHOLECYSTECTOMY HX COLONOSCOPY DILATION & CURETTAGE DX&/THER NONOBSTETRIC Dilation & curettage F SIGMOIDOSCOPY FLEXIBLE W BIOPSY PAST SURGICAL HISTORY OF 07/15/2014 Bilateral ureteral stent placement by Urology, laparotomy, lysis of adhesions, takedown of diverting loop ileostomy, partial proctectomy, completion colectomy and ileal resection in continuity, ilealJ-pouch anal anastomosis ([facility]- 29), diverting loop ileostomy US GUIDED THYROID BIOPSY FAMILY HISTORY: FAMILY HISTORY Problem Relation Age of Onset other (htn [Other]) Father Ischemic Heart Disease Father of massive [place] at 67 SOCIAL HISTORY: Social History Tobacco Use Smoking status: Never Smokeless tobacco: Never Vaping Use Vaping Use: Never used Substance Use Topics Alcohol use: No Drug use: No MEDICATIONS: amLODIPine (NORVASC) 5 mg tablet Take 1 tablet by mouth twice daily. Cholecalciferol, Vitamin D3, (D3-2000) 50 mcg (2,000 unit) cap Magnesium 250 mg tab zinc sulfate (ZINC-15 ORAL) MEDICATION, NON-DATABASE Take 1 capsule by mouth once daily. RESTORE (EYE PROMISE) Multivitamin capsule Take 1 capsule by mouth once daily. aspirin, enteric coated (ASPIRIN, ENTERIC COATED) 81 mg EC tablet Take 81 mg by mouth once daily. LOPERAMIDE HCL (IMODIUM ORAL) Take by mouth as needed. ALLERGIES: ALLERGIES Allergen Reactions Dtap-Ipv Component * Other: See Comments Maria Alejandra Cam[place] Flu Vac 2019 65up-A* Other: See Comments Valeria [place] Pneumococcal Vaccine Other: See Comments Maria Alejandra [place] Penicillins Unknown Tetracyclines Rash ROS on 07/04/22: PAIN ASSESSMENT: Positive for left frontal pain due to sinus congestion. She takes acetaminophen asneeded. No NSAIDs CONSTITUTIONAL: Positive for obesity. No weight loss, malaise, fevers or chills. No falls HEENT: Positive for left frontal pain due to sinus congestion. No blurry vision, hearing impairment, epistaxis or sore throat NECK: No neck pain, mass or stiffness RESPIRATORY: Negative for cough, hemoptysis, wheezing or shortness of breath CARDIOVASCULAR: Negative for chest pain, orthopnea, palpitations, or edema GASTROINTESTINAL: Negative for nausea, vomiting, and diarrhea. No hematemesis, hematochezia, melenaor constipation GENITOURINARY: Negative for dysuria or hematuria SKIN: Negative for lesions, rash, and itching NEURO: Positive for left frontal headache. No history of aphasia, dysarthria, syncope, paralysis, seizures or tremors MUSCULOSKELETAL: No joint swelling or back pain ENDOCRINE: No polydipsia or polyphagia HEMATOLOGIC: No bleeding. No easy bruising LYMPHATIC: No generalized lymphadenopathy IMMUNOLOGIC: She cannot take the influenza vaccine because it caused Guillain- [place] syndrome before. She took the Moderna CoVID-19 infection on 11/11/20, 12/07/20, and 08/02/21 VITAL SIGNS: Virtual videoconference encounter per patient's request. Her blood pressure at home was 130/69 PHYSICAL EXAM: GENERAL: Pleasant, obese, elderly female, alert, in no acute distress, cooperative, sitting at home SKIN: Pale. No rash HEENT: normocephalic, perrl, eomi, moist oral mucosa Virtual videoconference encounter per patient's request. LABS: Hemoglobin (g/dL) Date Value 03/22/2022 12.2 12/15/2020 11.4 Hematocrit (%) Date Value 03/22/2022 36.6 12/15/2020 33.8 WBC (k/uL) Date Value 03/22/2022 10.74 12/15/2020 8.80 Glucose (mg/dL) Date Value 03/30/2022 98 12/15/2020 95 Potassium (mmol/L) Date Value 03/30/2022 4.5 12/15/2020 4.6 Sodium (mmol/L) Date Value 03/30/2022 139 12/15/2020 131 Chloride (mmol/L) Date Value 03/30/2022 108 12/15/2020 97 CO2 (mmol/L) Date Value 03/30/2022 22 12/15/2020 27 Creatinine (mg/dL) Date Value 03/30/2022 1.18 12/15/2020 1.16 BUN (mg/dL) Date Value 03/30/2022 28 12/15/2020 18 Anion Gap (mmol/L) Date Value 03/30/2022 9 12/15/2020 7 Calcium (mg/dL) Date Value 12/15/2020 10.6 Calcium, Total (mg/dL) Date Value 03/30/2022 9.6 Protein, Total (g/dL) Date Value 03/24/2022 7.1 12/15/2020 6.7 Albumin (g/dL) Date Value 03/30/2022 4.6 12/15/2020 4.2 Bilirubin, Total (mg/dL) Date Value 03/24/2022 0.3 12/15/2020 0.5 Alkaline Phosphatase (U/L) Date Value 03/24/2022 78 12/15/2020 80 AST Date Value 03/24/2022 Comment: Unable to assay. Specimen significantly hemolyzed. 12/15/2020 19 U/L ALT (U/L) Date Value 03/24/2022 16 12/15/2020 13 pH, Urine Date Value Ref Range Status 02/28/2022 6.0 5.0 - 8.0 Final Specific [place], Ur Date Value Ref Range Status 02/28/2022 1.019 1.005 - 1.030 Final Glucose, Urine Date Value Ref Range Status 02/28/2022 Negative Negative Final Bilirubin, Urine Date Value Ref Range Status 02/28/2022 Negative Negative Final Ketones, Urine Date Value Ref Range Status 02/28/2022 Negative Negative Final Hemoglobin/Blood,Ur Date Value Ref Range Status 02/28/2022 Negative Negative Final Protein, Urine Date Value Ref Range Status 02/28/2022 1+ (A) Negative Final Urobilinogen Date Value Ref Range Status 02/28/2022 Negative Negative Final Nitrites Date Value Ref Range Status 02/28/2022 Negative Negative Final WBC, Urine Date Value Ref Range Status 02/28/2022 6-10 /HPF (A) 0-5 /HPF Final Result Date - 09/30/2014 N 0658 - NM RENAL MAG3 DIURETIC / Final Report DATE OF EXAM: Sep 29 2014 2:41PM MCN 0658 - NM RENAL MAG3 DIURETIC / PROCEDURE REASON: Hydronephrosis Physician Interpretation MAG3 DIURETIC RENAL SCAN (09/29/2014 2:51 PM): CLINICAL HISTORY: 69 year old with a ureteral obstruction of the left kidney. TECHNIQUE: 10.9 mCi Tc 99m MAG3 was administered IV and dynamic imaging was performed in the posterior view for 50 minutes. The patient's drugs and allergies were reviewed and no contraindications to Lasix administration were encountered. 40 mg Lasix was given IV at 30 minutes into the scan. RESULT: RENAL PERFUSION: The perfusion to both kidneys is prompt and symmetric RENAL FUNCTION: LEFT KIDNEY: The initial cortical uptake is normal and the cortical transit is visualized by 3-5 minutes, which is within normal limits. There is minimal spontaneous drainage of the radiotracer from the left kidney prior to administration of lasix with reasonable clearance of the radiotracer after the administration of Lasix. Post-Lasix clearance T1/2 = 6 minutes. RIGHT KIDNEY: The initial cortical uptake is normal and the cortical transit is visualized by 3-5 minutes, which is within normal limits. There is minimal spontaneous drainage from the right kidney prior to administration of lasix with reasonable clearance of the radiotracer after the administration of Lasix. Post-Lasix clearance T1/2 = 4.1 minutes. By computer analysis, the contribution to total renal function is 45% from the left kidney, and 55% from the right kidney. ======== IMPRESSION: NORMAL BILATERAL RENAL PERFUSION AND FUNCTION, WITH SPLIT RENAL FUNCTION ABOVE . NO SCINTIGRAPHIC EVIDENCE OF URINARY TRACT OBSTRUCTION. Tube Room Supervisor: [facility] Transcribe Date/Time: Sep 29 2014 2:51P Dictated by : JAYNE VILLARREAL DO This examination was interpreted and the report reviewed and electronically signed by: SPIKE GARCIA MD On Sep 30 2014 10:25AM Result Date - 07/18/2014 U 0065 - US KIDNEY / Final Report DATE OF EXAM: Jul 18 2014 12:33PM U 0065 - US KIDNEY / PROCEDURE REASON: Right flank pain Physician Interpretation RENAL ULTRASOUND HISTORY: Right flank pain COMPARISON: 06/23/2014. TECHNIQUE: Sonography of the kidneys and urinary bladder was performed. Images were obtained and stored in a permanent archive. RESULT: Right Kidney: -Renal length: 10.9 cm. -Parenchyma: Renal parenchyma echogenicity is normal. -Parenchymal thickness: Thinned. -Hydronephrosis: Mild. -Calculus: No echogenic, shadowing calculus. -Lesion: None. Left Kidney: -Renal length: 10.2 cm. -Parenchyma: Renal parenchyma echogenicity is normal. -Parenchymal thickness: Normal. -Hydronephrosis: Mild-moderate. -Calculus: No echogenic, shadowing calculus. -Lesion: None. Bladder: Decompressed with Nieto catheter. IMPRESSION: MILD RIGHT AND MILD-MODERATE LEFT HYDRONEPHROSIS. Tube Room Supervisor: [facility] Transcribe Date/Time: Jul 18 2014 1:41P Dictated by : RUEL THACKER DO This examination was interpreted and the report reviewed and electronically signed by: GREGORY HODGE MD On Jul 18 2014 1:58PM 04/25/2022 3:21 PM - LNU 1055 - LNU 1055 - US KIDNEY/BLADDER / IMPRESSION: Mild left hydronephrosis. Tube Room Supervisor: [facility] Transcribe Date/Time: Apr 25 2022 3:13P Dictated by : ISAIAH GARCIA MD This examination was interpreted and the report reviewed and electronically signed by: ISAIAH GARCIA MD on Apr 25 2022 3:18PM EST Final Report DATE OF EXAM: Apr 25 2022 12:11PM LNU 1055 - US KIDNEY/BLADDER / PROCEDURE REASON: Chronic renal failure, stage 3b (HCC) Physician Interpretation EXAMINATION: RENAL ULTRASOUND CLINICAL HISTORY: Chronic renal failure, stage 3b (HCC) TECHNIQUE: Sonography of the kidneys and urinary bladder was performed. Images were obtained and stored in a permanent archive. MQ: [id number] COMPARISON: 01/04/2022 and 06/09/2020 RESULT: Right Kidney: -Renal length: 10.6 cm -Parenchyma: Normal parenchymal echogenicity. Normal parenchymal thickness. -Collecting system: No hydronephrosis. -Calculus: No echogenic, shadowing calculus. -Lesion: 1.5 cm hypoechoic structure in the interpolar right kidney trace characterized as a simple cyst. Left Kidney: -Renal length: 10.1 cm -Parenchyma: Normal parenchymal echogenicity. Normal parenchymal thickness. -Collecting system: Mild hydronephrosis -Calculus: No echogenic, shadowing calculus. -Lesion: None. Bladder: Normal sonographic appearance. ASSESSMENT: 77 y/o female with h/o obesity class 2 (BMI 32.4), PUD, gastric ulcerrs, HTN, diverticulitis, GBS, T3N1b rectal cancer s/p subtotal colectomy and proctosigmoidectomy 08/2013; s/p recurrent stage II colon cancer T2N0 requiring bilateral ureteral stent placement, laparotomy, DIAMOND, takedownof diverting loop ileostomy, partial proctectomy, completion colectomy, ileal resection in continuity, ileal J-pouch anal anastomosis, and diverting loop ileostomy 07/15/14; intolerant of FOLFOX and 5FU; pulmonary nodules, thyroid nodule, ectasia of ascending aorta, ascites, chronic left hydronephrosis without obstruction, vitamin B12 deficiency, hyperparathyroidism, anemia in CKD, hypercalcemia that improved with intravenous hydration, right renal cyst, RAMEZ, and CKD stage 3a, who requested to have a virtual videoconference encounter for f/u of CKD. Virtual videoconference encounter per patient's request. -Chronic renal failure, stage 3a. Improved off lisinopril. -Renal cyst. Benign. -Hypercalcemia. Improved with IV hydration. -Osteopenia. Being followed up by endocrinology. -Hyperparathyroidism. Being followed up by endocrinology. -Chronic left hydronephrosis. Structural. There is no obstruction. -Malignant neoplasm of rectum. Being f/u by oncology. -Essential hypertension. Well controlled at home (Her blood pressure at home was 130/69). Euvolemic. -Obesity class 1 (BMI 33.04). Advised to continue to lose weight. PLAN: -Advised to lose weight. -Advised to follow a low sodium diet (brochure with instructions given to the patient). -Avoid NSAIDs (Advil, Motrin, Ibuprofen, Naproxen, Aleve, Aspirin, Anacin, Diclofenac, Daypro, Mobic, Meloxicam, Sulindac, Clinoril, etc), and CORRAL-2 inhibitors (Celebrex, Celecoxib, etc). -Avoid chronic use of proton pump inhibitors (Prilosec, omeprazole, Prevacid, Lansoprazole, Nexium,Esomeprazole, Protonix, Pantoprazole, etc). -Avoid IV contrast dye. -Avoid dehydration. -Avoid hypotension. -Will continue current treatment. -She is going to have labs at the end of the month. -RTC in 3 months. Time spent in direct contact with the patient, counseling and coordination of care over 25 minutes.Greater than 50% of the visit was spent with face to face counselling, discussion of the above topics, and coordination of care. All questions answered. Thank you for allowing us to participate in her care. Arash Cavazos MD Staff Nephrology and Hypertension July 04, 2022 9:36 AM CC: Logan Gomez MD documented in this encounterHol[facility] [place]10-11-2022 Evaluation note* Diagnosis Chronic renal failure, stage 3a (HCC)- Primary Hydronephrosis of left kidney Hydronephrosis Renal cyst Unspecified congenital cystic kidney disease Essential hypertension Unspecified essential hypertension documented in this encounter [facility] [place] History of Present illness Narrative* Анна Still, RT(R) - 05/24/2022 1:40 PM EDT Radiology Service Progress Note PATIENT NAME: Aleksander Barger DATE OF SERVICE: May 24, 2022 TIME: 2:10 PM PATIENT IDENTITY VERIFICATION COMPLETED USING TWO (2) IDENTIFIERS: Name and Date of confirmedby patient verbally. FALL SCREENING: Has the patient had 2 falls in the last year or 1 fall with injury or currently using an Ambulatory Assistive Device (Walker, Cane, Wheelchair, Crutches, etc.)? No PATIENT GENDER DATA: Female. status: : No status: NO. PATIENT RELEVANT IMPLANT DATA REVIEWED: Not Applicable RADIOLOGY DEPARTMENT: Bone Density PERIPHERAL IV DATA: Not applicable SIGNED BY: RT Ludy(R) May 24, 2022 2:10 PM documented in this encounterHol[facility] [place]08-30-2022 History of Present illness Narrative* Ghazala Humphrey MD - 05/23/2022 11:49 AM EDT HISTORY OF PRESENT ILLNESS: Aleksander Barger is presenting for hypercalcemia Requesting provider: Arnol Daugherty MD Patient has mild hypercalcemia since 2012 at least (initially intermittent). She has no history of kidney stones. Patient remote history of fractures (thrice in 1970, left arm). Patient had no recent evaluation for osteoporosis and received no treatment for osteoporosis. Patient takes vitamin D 2,000 IU daily. She is not certain of the dosage Patient reports a history of thyroid nodule, CT scan of the chest December, indicated heterogeneous appearance of the gland. Patient reports a prior FNA in 2012, outside facility. It is reported to be stable. Patient has no polyuria, no polydipsia, no nausea or vomiting. Review of Systems Constitutional: Negative for fatigue, night sweats and recent unintentional weight change. HENT: Negative for trouble swallowing, postnasal drip and thyroid pain (lower neck). Eyes: Negative for visual disturbance. Respiratory: Negative for difficulty breathing. Cardiovascular: Negative for chest pain, leg swelling and claudication. Gastrointestinal: Positive for diarrhea (she history colorectal surgery). Negative for heartburn, nausea, vomiting, abdominal pain and constipation. Genitourinary: Positive for amenorrhea. Negative for urgency, frequent urination and slower stream. Musculoskeletal: Negative for myalgias, muscle weakness and bone pain. Skin: Positive for skin color changes. Neurological: Negative for dizziness, headaches and numbness. Endo/Heme/Allergies: Negative for polydipsia, cold intolerance when others are comfortable, heat intolerance when others are comfortable, hot flashes, flushing and changes in body hair. 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) History of stomach ulcers Hypercalcemia 01/13/2022 Hypertension Menopause Rectal cancer (HCC) Thyroid nodule PAST SURGICAL HISTORY Procedure Laterality Date APPENDECTOMY CHOLECYSTECTOMY HX COLONOSCOPY DILATION & CURETTAGE DX&/THER NONOBSTETRIC Dilation & curettage F SIGMOIDOSCOPY FLEXIBLE W BIOPSY PAST SURGICAL HISTORY OF 07/15/2014 Bilateral ureteral stent placement by Urology, laparotomy, lysis of adhesions, takedown of diverting loop ileostomy, partial proctectomy, completion colectomy and ileal resection in continuity, ilealJ-pouch anal anastomosis ([facility]- 29), diverting loop ileostomy US GUIDED THYROID BIOPSY Current Medications 05/23/2022 CARDIOVASCULAR Medication Dosage Pharm Subclass amLODIPine (NORVASC) 5 mg tablet Take 1 tablet by mouth twice daily. Calcium Channel Blockers - Dihydropyridines ANTI-PLATELET THERAPIES Medication Dosage Pharm Subclass aspirin, enteric coated (ASPIRIN, ENTERIC COATED) 81 mg EC tablet Take 81 mg by mouth once daily. Salicylate Analgesics ASPIRIN Medication Dosage Pharm Subclass aspirin, enteric coated (ASPIRIN, ENTERIC COATED) 81 mg EC tablet Take 81 mg by mouth once daily. Salicylate Analgesics OTHER Medication Dosage Pharm Subclass Cholecalciferol, Vitamin D3, (D3-2000) 50 mcg (2,000 unit) cap Vitamins - D Derivatives LOPERAMIDE HCL (IMODIUM ORAL) Take by mouth as needed. Antidiarrheal - Antiperistaltic Agents Magnesium 250 mg tab Minerals and Electrolytes - Magnesium MEDICATION, NON-DATABASE Take 1 capsule by mouth once daily. RESTORE (EYE PROMISE) Multivitamin capsule Take 1 capsule by mouth once daily. Multivitamins zinc sulfate (ZINC-15 ORAL) Minerals and Electrolytes - Zinc ALLERGIES Allergen Reactions Dtap-Ipv Component * Other: See Comments Maria Alejandra Camarillo Flu Vac 2019 65up-A* Other: See Comments Valeria Camar[place] Pneumococcal Vaccine Other: See Comments Maria Alejandra [place] Penicillins Unknown Tetracyclines Rash FAMILY HISTORY Problem Relation Age of Onset other (htn [Other]) Father Ischemic Heart Disease Father of massive [place] at 67 Social History Tobacco Use Smoking status: Never Smokeless tobacco: Never Vaping Use Vaping Use: Never used Substance Use Topics Alcohol use: No Drug use: No PHYSICAL EXAMINATION: BP 154/72 Pulse 79 Wt 76.4 kg (168 lb 6.4 oz) BMI 30.75 kg/m Patient is alert and oriented, in no distress HEENT: no pallor or jaundice, no exophthalmous or lid lag Neck: no thyromegaly, no adenopathy, no thyroid or carotid bruit. Heart: RRR no murmur or gallop Lungs: CTA & P Abd: Soft nontender with no organomegaly Ext: +1 edema Deep tendon reflexes are + 2 with normal relaxation phase and no tremor in upper extremities. IMPRESSION AND PLAN: 1. Hypercalcemia, mild and intermittent. Patient has associated hyperparathyroidism. Primary hyperparathyroidism is the most likely diagnosis. Familial hypocalciuric hypercalcemia is less likely/uncommon. Considering patient's age and co-existing medical conditions, conservative management is favored ifthe diagnosis is primary hyperparathyroidism. Patient is not in favor of surgery as well. For thesereasons, we will not pursue a 24 hour urine study to confirm the diagnosis. We will address bone health and the need to treat osteoporosis, or to prevent osteoporosis. Obtain BMD, forearm and axial. 2. Goiter: history of FNA in 2012, reported to be benign per patient. Goiter is not palpable on exam. CT scan of the chest December, indicated heterogeneous appearanceof the gland. Typically, thyroid ultrasound is a better evaluation of goiter. Again, considering patient's age and co-existing conditions and being asymptomatic from her goiter, we will not pursue further evaluation at this point. By all means, if hypercalcemia were to worsen and the patient were to consider parathyroid surgery, then she would need thyroid ultrasound done. Patient expressed understanding and agreed with plan. Thank you for allowing me to participate in the medical care of Ms. Aleksander Barger My final recommendations will be communicated back to the requesting physician by way of shared Medical Record. Ghazala Humphrey MD, RONI * Brandy Ford RN - 05/23/2022 11:13 AM EDT Answers submitted by the patient for this visit: Endocrine Review of Systems (Submitted on 05/16/2022) Fatigue: No Night Sweats: No Recent Unintentional Weight Change: No Skin Color Changes: Yes Post-Nasal Drip: No Thyroid Pain (lower neck): No Trouble Swallowing: No Vision Disturbance: No Chest Pain: No Leg Swelling: No Blood Clots?: No Leg Pain while walking?: No Difficulty Breathing?: No Heartburn: No Nausea: No Vomiting?: No Diarrhea: Yes Constipation: No Abdominal Pain: No Bone Pain?: No Muscle Aches: No Muscle Weakness: No Joint Pain or Stiffness: No Headaches: No Dizziness: No Numbness?: No Urgency to Urinate?: No Increased Urination?: No Slow or Small Urine Stream?: No Have your menstrual cycles stopped?: Yes Flushing?: No Hot Flashes?: No Increased Thirst: No Change in Body Hair?: No Cold Intolerance: No Heat Intolerance?: No documented in this encounterHol[facility] [place]-03-2022 Miscellaneous Notes* Telephone Encounter - Arash Cavazos MD - 04/26/2022 3:36 PM EDT Images from the original note were not included. I gave the patient the result of the kidney and bladder ultrasound and the renal vascular ultrasound. [facility] [place] Arash Junior MD Staff Nephrology and Hypertension [facility] Pager# [phone] documented in this encounterHolzer Medical Center – [place]08-02-2022 History of Present illness Narrative* RT Jamari(R) - 04/25/2022 12:11 PM EDT Radiology Service Progress Note PATIENT NAME: Aleksander Barger DATE OF SERVICE: April 25, 2022 TIME: 12:12 PM PATIENT IDENTITY VERIFICATION COMPLETED USING TWO (2) IDENTIFIERS: Name and Date of confirmedby patient verbally. FALL SCREENING: Has the patient had 2 falls in the last year or 1 fall with injury or currently using an Ambulatory Assistive Device (Walker, Cane, Wheelchair, Crutches, etc.)? No PATIENT GENDER DATA: Female. status: : No status: NO. PATIENT RELEVANT IMPLANT DATA REVIEWED: Not Applicable RADIOLOGY DEPARTMENT: Ultrasound PERIPHERAL IV DATA: Not applicable SIGNED BY: Ludmila Nieto RDMS, RVT April 25, 2022 12:12 PM documented in this encounterHolzer Medical Center [facility] [place]07-07-2022 Miscellaneous Notes* Telephone Encounter - Arash Cavazos MD - 03/30/2022 3:43 PM EDT Images from the original note were not included. I left both the patient and also her daughter phone messages with lab results. The patient's renal function and serum calcium improved after treatment with IV fluids and denosumab. The serum sodium is normal. [facility] [place] Arash Junior MD Staff Nephrology and Hypertension [facility] Pager# [phone] documented in this encounterHolzer Medical Center – [place]06-30-2022 Miscellaneous Notes* Telephone Encounter - Felicity Thomas - 03/23/2022 4:47 PM EDT Patient has been added for tomorrow. Felicity Thomas * Telephone Encounter - Marylou Vu RPh - 03/23/2022 12:57 PM EDT Yes per pharmacy stand point, and I would prefer denosumab over zometa based on her kidney function. I have added to the PA spread sheet. Steve Vu rPh * Telephone Encounter - Arnol Daugherty MD - 03/23/2022 12:16 PM EDT Hello - I spoke with Dr. Dorothy Cavazos regarding Aleksander's calcium and renal failure - she will need fluids and denosumab for hypercalcemia which is recurrent. I've placed orders - fine with Zometa too as appropriate Can we treat this afternoon or tomorrow? documented in this encounterHolzer Medical Center – [place]06-30-2022 Miscellaneous Notes* Telephone Encounter - Amaya Gale Pss - 03/23/2022 2:58 PM EDT Called pt, scheduled tomorrow (03/24) @ 230pm. * Telephone Encounter - Mallory Pimentel RN - 03/23/2022 2:13 PM EDT Clerical: Please call and schedule pt to come in tomorrow for IVF and prolia. Pharmacy: [facility] ordered for hypercalcemia. Mallory Pimentel, RN * Telephone Encounter - Mallory Pimentel RN - 03/23/2022 2:13 PM EDT ----- Message from Arnol Daugherty MD sent at 03/23/2022 1:14 PM EDT ----- Regarding: RE: Hypercalcemia, RAMEZ Ava Velanan! Nice talking with you - We can take care of it! ----- Message ----- From: Arash Cavazos MD Sent: 03/23/2022 12:11 PM EDT To: Arnol Daugherty MD Subject: Hypercalcemia, RAMEZ Arnol, I talked to the patient. She has put Ure-Na on hold. I will stop lisinopril. She will definitely need IVF and also treatment of hypercalcemia with denosumab. Could you do this in the infusion center or should she go to the ED and be admitted to the hospital? ThanksArash. ----- Message ----- From: Arnol Daugherty MD Sent: 03/23/2022 9:27 AM EDT To: Willow Mauro, RN, MD Aleksander Henrández - your sodium is near normal now. However, your calcium is higher and your kidney function yenifer little worse. - I will forward this note to your laser machine operator too. Happy to arrange for hydration if you like. Dr. Alvin Conrad documented in this encounterHolzer Medical Center – [place]06-30-2022 Miscellaneous Notes* Telephone Encounter - Arash Cavazos MD - 03/23/2022 12:16 PM EDT Images from the original note were not included. I returned the patient's call. I instructed her to continue to hold off on Ure- NA, stop taking lisinopril, increase the amlodipine to 5 mg by mouth twice a day (I sent the prescription to [facility] in [place], [place]), and increase the fluid restriction to 1.5 liters a day. I communicated with Dr. Alvin Daugherty and he will treat the patient in the infusion center with IV hydration and denosumab. Will repeat labs next week. [facility] [place] Arash Junior MD Staff Nephrology and Hypertension [facility] Pager# [phone] documented in this encounterHolzer Medical Center – [place]06-29-2022 History of Present illness Narrative* Arnol Daugherty MD - 03/22/2022 10:35 AM EDT Images from the original note were not included. NAME: Aleksander Barger CLINIC NO.: [id number] DATE OF SERVICE: March 22, 2022 Some elements in this clinic note that are critical to medical decision making have been carefully reviewed and included from a prior clinic note dated: January 26, 2022 & January 12, 2022 Referring Provider: Dr. Stock Additional Clinicians involved in Aleksander Barger's care: Logan Gomez Assessment: (N18.32) Chronic renal failure, stage 3b (HCC) (primary encounter diagnosis) (E83.52) Hypercalcemia T3N1b Rectal cancer status post hemicolectomy August 2013. MSI stable Completed course of adjuvant chemotherapy. Did not tolerate well FOLFOX regimen. Recurrent stage II colon cancer T2N0 in May 2014. Require a completion colectomy. No adjuvant therapy. Persisting Ascites mild - continue monitoring Other vitamin B12 deficiency anemia - Previously had a low B12 level found in 2014. Did receive monthly B12 IM from 9162-2470 with no improvement. Will monitor with labs every 6months CKD (chronic kidney disease) stage 3, GFR 30-59 ml/min Possibly contributing to her anemia. Will Monitor and consider erythropoetin if hgb drops >9.9 Hypercalcemia seems worse - iPTH normal. Responsive to Hydration PLAN: 1. Labs today please - CC: Arash Cavazos MD 2. Keep previous appointments for labs and scans. HPI: Updated Visit, March 22, 2022: Following consult with Nephrology was started on fluid restriction as well as Ure-Na powder but is still having concerns. I reviewed her labs and reassured her. We will re-draw labs and make sure to send results to her Professional Organizer also. Updated Visit, January 26, 2022: Called regarding hypercalcemia which is a chronic problem for her. probably associated with renal failure. Will send her to see nephrology. She also has a salivary stone - I recommended that she see Dr. Graf. Updated Visit, January 12, 2022: Had mammograms in [place] last week which were clear. Otherwise doing well. Didn't have labs today and so will obtain. 01/09/2022 mammograms: BIRADS 1 - Negative. Normal interval follow-up in 12 months. 01/04/2022 CT CAP w/Cont: Chest: 1. Again seen are scattered small noncalcified pulmonary nodules which are overall nonspecific. Themajority are unchanged, however there are at least two new nodules (since 03/08/2020) measuring 0.3-0.4 cm within the right middle lobe and right lower lobe. These may represent sites of small airways inflammation or mucous plugging. Continued attention on subsequent studies is suggested. 2. No lymphadenopathy. 3. Please refer to concurrently acquired and separately reported abdomen CT for findings related tothe upper abdomen. Abdomen / Pelvis: 1. Focal wall thickening involving right mid abdominal jejunal loops with associated interloop ascites, suggestive of enteritis. Correlation with clinical symptoms is suggested. If warranted, consideration could be given to further assessment with contrast-enhanced CT of the abdomen/pelvis. 2. No evidence of metastatic disease within the limitations of a noncontrast examination. 3. No lymphadenopathy. Updated Visit, December 15, 2020: Aleksander is 75 yo and returns in follow up for a history of rectal cancer diagnosed and treted in 2012. And subsequent colon cancer in 2013. She had adjuvant therapy for her rectal cancer but didn't need anything following her colon cancer except for a full colectomy. She is looking for a new PCP and will be seeing Dr. Gomez soon. She is behind on breast screeningand wanted an exam today with subsequent orders for mammography. No other complaints. Updated Visit, June 16, 2020: Reviewed CT's with no evidence of recurrence. Ascites is minimal. Left flank pain occurred briefly a few weeks ago and resolved overnight Always has loose stools. Updated Visit, March 17, 2020: This is a 75 year old female Had slight enteritis prior to recent CT on 03/08/2020 - which explains the pelvic ascites. Will follow to resolution. Due to chronic diarrhea, she remains dehydrated. Had ileostomy but then a year later recurred in 2013. - had colectomy Case Hx: 04/2013 : imaging obtained due to abdominal discomfort notes circumferential wall thickening of the sigmoid colon 06/2013 : colonoscopy notes obstructing rectal mass at 15 cm from anal verge- positive for moderately differentiated adenocarcinoma- staging imaging included thyroid nodule (biopsy negative for malignancy) 08/2013 : referred to [facility] and completed subtotal colectomy and proctosigmoidectomy pathology notes [id number] disease ( 2 of 15 lymph nodes involved)- low grade adenocarcinoma (MSI stable) 11/2013 : starts adjuvant folfox, does not tolerate regimen- completes three cycles of therapy but requires two trips to ER and one admission 02/2014 : completes four further cycles of single agent 5fu- again did require hospitalization for pre-renal azotemia- therapy discontinued 05/2014 : colonoscopy notes adenocarcinoma with high grade dysplasia- completes colectomy pT2N0 moderately differentiated adenocarcinoma - given previous difficulty with adjuvant treatment- therapy deferred She also has a history of anemia and was on B12 supplements from [id number], however it was felt it had little benefit and these injections were stopped. She does have Stage 3 chronic kidney disease. Today her anemia appears stable. RADIOGRAPHIC DATA: Reviewed on December 15, 2020 4. 06/09/2020 CT Abd/Pelvis: 1. No evidence of intra-abdominal/pelvic metastases. No interval changesince 03/08/2020. 2. Nonspecific trace loculated ascites/soft tissues prominence in the left hemipelvis, stable. 3. 03/08/2020 CT CAP w/o IV cont: Chest: 1. Bilateral subcentimeter pulmonary nodules, unchanged from prior study of 09/01/2019. 2. No substantial intrathoracic adenopathy is identified. Abd/Pelvis: 1. Small amount of abdominal and pelvic ascites, a new finding, as above. 2. Mild, diffuse small bowel wall thickening is appreciated within the pelvis, a nonspecific finding. This may relate to prior radiation therapy. 3. A minimally prominent retroperitoneal lymph node is again noted, unchanged from the prior study of 09/01/2019. 2. ct c/a/p without contrast 09/01/19 1. Subcentimeter right-sided pulmonary nodules, stable. There has been interval resolution of previously identified small reticulonodular infiltrate within the right lower lobe. 2. Ectasia of the ascending thoracic aorta, unchanged. 3. Heterogeneous enlargement of the right lobe of the thyroid gland, right lobe thyroid hypodensity, felt to be stable, poorly characterized on these unenhanced images. 1. Minimally prominent aortocaval retroperitoneal lymph node appears unchanged from the prior studyof 09/03/2018. 2. Otherwise, essentially unremarkable postoperative appearance to the abdomen and pelvis. 1. Ct Chest 09/03/18 1. Stable subcentimeter right-sided pulmonary nodules, as above. 2. Heterogeneous enlargement of the right lobe of the thyroid gland, areas of decreased attenuationinvolving the right lobe, not as well characterized on these unenhanced images, however, stable. 3. Mild ectasia of the ascending thoracic aorta, stable. CT abdomen and pelvis 09/03/18 1. Stable appearance to a minimally prominent retroperitoneal lymph node, as above. 2. Postoperative changes. No definite CT evidence for metastatic or recurrent on these unenhanced images REVIEW OF SYSTEMS Per HPI and otherwise negative by full review of organ systems. ECOG PERFORMANCE STATUS: 0 PHYSICAL EXAMINATION: Vitals: BP 132/66 Pulse 84 Temp (Src) 97.1 (Temporal) Resp 16 Ht 5' 2.047 (1.58m) Wt 171lb 3.2 oz (77.7kg) SpO2 100% BMI 31.27 kg/(m^2). Body surface area is 1.84 meters squared. Exam limited to gross visualization where appropriate due to COVID-19. Gen.: This is an age-appropriate patient in no acute distress. Head: Appears atraumatic with no visible lesions. Eyes: Pupils equally round and reactive to light, extraocular muscles are intact. Neck: Supple. Mouth: Masked. Respiratory: Appears to be respiring comfortably. Neurologic: Nonfocal to gross visualization. Alert and oriented 3. Psychiatric: No evidence of inappropriate anxiety or depression. Skin: Visible areas of skin without rash, lesions, wounds or petechiae. ALLERGIES: ALLERGIES Allergen Reactions Dtap-Ipv Component * Other: See Comments Maria Alejandra Camar[place] Flu Vac 2019 65up-A* Other: See Comments Valeria [place] Pneumococcal Vaccine Other: See Comments Maria Alejandra [place] Penicillins Unknown Tetracyclines Rash MEDICATIONS: Cholecalciferol, Vitamin D3, (D3-2000) 50 mcg (2,000 unit) cap Magnesium 250 mg tab zinc sulfate (ZINC-15 ORAL) MEDICATION, NON-DATABASE Take 1 capsule by mouth once daily. RESTORE (EYE PROMISE) urea (URE-NA) 15 gram oral powder Take 15 g by mouth once daily. Multivitamin capsule Take 1 capsule by mouth once daily. amLODIPine (NORVASC) 5 mg tablet Take 5 mg by mouth once daily. lisinopril (ZESTRIL, PRINIVIL) 20 mg tablet Take 10 mg by mouth twice daily. aspirin, enteric coated (ASPIRIN, ENTERIC COATED) 81 mg EC tablet Take 81 mg by mouth once daily. LOPERAMIDE HCL (IMODIUM ORAL) Take by mouth as needed. LABORATORY VALUES: WBC (k/uL) Date Value 12/15/2020 8.80 RBC (m/uL) Date Value 12/15/2020 3.68 (L) Hemoglobin (g/dL) Date Value 12/15/2020 11.4 (L) Hematocrit (%) Date Value 12/15/2020 33.8 (L) MCV (fL) Date Value 12/15/2020 91.8 MCH (pG) Date Value 12/15/2020 31.0 MCHC (g/dL) Date Value 12/15/2020 33.7 RDW-CV (%) Date Value 12/15/2020 12.3 Platelet Count (k/uL) Date Value 12/15/2020 281 MPV (fL) Date Value 12/15/2020 10.0 Glucose (mg/dL) Date Value 12/15/2020 95 BUN (mg/dL) Date Value 12/15/2020 18 Creatinine (mg/dL) Date Value 12/15/2020 1.16 (H) Sodium (mmol/L) Date Value 12/15/2020 131 (L) Potassium (mmol/L) Date Value 12/15/2020 4.6 Chloride (mmol/L) Date Value 12/15/2020 97 CO2 (mmol/L) Date Value 12/15/2020 27 Protein, Total (g/dL) Date Value 12/15/2020 6.7 Albumin (g/dL) Date Value 12/15/2020 4.2 Calcium (mg/dL) Date Value 12/15/2020 10.6 (H) Alkaline Phosphatase (U/L) Date Value 12/15/2020 80 Bilirubin, Total (mg/dL) Date Value 12/15/2020 0.5 AST (U/L) Date Value 12/15/2020 19 ALT (U/L) Date Value 12/15/2020 13 CEA (ng/mL) Date Value 03/22/2022 1.2 01/12/2022 1.3 12/15/2020 0.8 06/09/2020 0.7 03/17/2020 0.9 12/10/2019 1.0 09/08/2019 1.0 DIAGNOSIS: (N18.32) Chronic renal failure, stage 3b (HCC) (primary encounter diagnosis) Plan: COMP METABOLIC PANEL (E83.52) Hypercalcemia Plan: COMP METABOLIC PANEL 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) History of stomach ulcers Hypercalcemia 01/13/2022 Hypertension Menopause Rectal cancer (HCC) Thyroid nodule PAST SURGICAL HISTORY Procedure Laterality Date APPENDECTOMY CHOLECYSTECTOMY HX COLONOSCOPY DILATION & CURETTAGE DX&/THER NONOBSTETRIC Dilation & curettage F SIGMOIDOSCOPY FLEXIBLE W BIOPSY PAST SURGICAL HISTORY OF 07/15/2014 Bilateral ureteral stent placement by Urology, laparotomy, lysis of adhesions, takedown of diverting loop ileostomy, partial proctectomy, completion colectomy and ileal resection in continuity, ilealJ-pouch anal anastomosis ([facility]- 29), diverting loop ileostomy US GUIDED THYROID BIOPSY Social History Tobacco Use Smoking status: Never Smoker Smokeless tobacco: Never Used Vaping Use Vaping Use: Never used Substance Use Topics Alcohol use: No Drug use: No FAMILY HISTORY Problem Relation Age of Onset other (htn [Other]) Father Ischemic Heart Disease Father of massive [place] at 67 I spent a total of 20 minutes on the date of the service which included preparing to see the patient, [id number] patient care, completing clinical documentation, performing a medically appropriate examination, counseling and educating the patient/family/caregiver, ordering medications, tests, or p rocedures, communicating with other HCPs (not separately reported) and care coordination (not separately reported). Arnol Daugherty MD, CPE Hematology and Oncology Services Provided at: [place], [place] CC: [address] [id number] [address] Logan Gomez documented in this encounterHolzer Medical Center [facility] [place]06-28-2022 Miscellaneous Notes* Telephone Encounter - Danielle Isaacs - 03/21/2022 12:22 PM EDT Patient is scheduled with ELANA tomorrow 03/22/22@10am regular visit. Danielle Isaacs * Telephone Encounter - Willow Mauro RN - 03/21/2022 11:46 AM EDT PSS: Please schedule pt for either televisit or regular appt with Dr Doherty, per her preference. Thankyou. Willow Mauro RN * Telephone Encounter - Arnol Daugherty MD - 03/21/2022 11:27 AM EDT I called her and tried to leave a message - I'm not sure if the ans machine was working right. I'm happy to see her or talk with her- I gave her my personal Cell to call if needed. * Telephone Encounter - Willow Mauro RN - 03/21/2022 10:05 AM EDT Received call from pt stating she would like to speak to Dr Elana mares. Pt states she has been to laser machine operator he referred her to and his plan isn't working and she really needs appt with Dr Doherty to discuss things. ELANA: Ok to schedule pt to see you? 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 Anemia in stage 3b chronic kidney disease 202107/04/2022 documented as of this encounter (statuses as of 07/14/2022) [facility] [place] History of Past illness Narrative* Problem Noted Date Resolved Date 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 Anemia in stage 3b chronic kidney disease 202107/04/2022 documented as of this encounter (statuses as of 07/27/2022) [facility] [place] History of Past illness Narrative* Problem Noted Date Resolved Date 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 Anemia in stage 3b chronic kidney disease 202107/04/2022 documented as of this encounter (statuses as of 08/29/2022) [facility] [place] History of Past illness Narrative* Problem Noted Date Resolved Date 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 Anemia in stage 3b chronic kidney disease 202107/04/2022 documented as of this encounter (statuses as of 08/29/2022) [facility] [place] History of Past illness Narrative* Problem Noted Date Resolved Date 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 Anemia in stage 3b chronic kidney disease 202107/04/2022 documented as of this encounter (statuses as of 10/26/2022) [facility] [place] History of Past illness Narrative* Problem Noted Date Resolved Date 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 Anemia in stage 3b chronic kidney disease 202107/04/2022 documented as of this encounter (statuses as of 01/25/2023) [facility] History of Past illness Narrative* Problem Noted Date Resolved Date 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 Anemia in stage 3b chronic kidney disease 202107/04/2022 documented as of this encounter (statuses as of 01/27/2023) [facility] History of Past illness Narrative* Problem Noted Date Resolved Date 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 Anemia in stage 3b chronic kidney disease 202107/04/2022 documented as of this encounter (statuses as of 02/05/2023) [facility] History of Past illness Narrative* Problem Noted Date Diagnosed Date Resolved Date 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 Anemia in stage 3b chronic kidney disease 02/23/2022 07/04/2022 documented as of this encounter (statuses as of 05/04/2023) [facility] History of Past illness Narrative* Problem Noted Date Diagnosed Date Resolved Date 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 Anemia in stage 3b chronic kidney disease 02/23/2022 07/04/2022 documented as of this encounter (statuses as of 05/04/2023) [facility] History of Past illness Narrative* Problem Noted Date Diagnosed Date Resolved Date 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 Anemia in stage 3b chronic kidney disease 02/23/2022 07/04/2022 documented as of this encounter (statuses as of 05/21/2023) [facility] History of Past illness Narrative* Problem Noted Date Diagnosed Date Resolved Date 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 Anemia in stage 3b chronic k idney disease (HCC) 02/23/2022 07/04/2022 documented as of this encounter (statuses as of 07/05/2023) [facility] History of Past illness Narrative* Problem Noted Date Diagnosed Date Resolved Date 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 NAME: Aleksander Barger CLINIC NO.: [id number] DATE OF SERVICE: January 26, 2022 Some elements in this clinic note that are critical to medical decision making have been carefully reviewed and included from a prior clinic note dated: January 12, 2022 Referring Provider: Dr. Stock Additional Clinicians involved in Aleksander Barger's care: Logan Gomez AMBULATORY TELEPHONE VISIT Aleksander Barger has consented to this telephone encounter. Persons Present: patient Data Reviewed: Most recent labs Assessment: (N18.32) Chronic renal failure, stage 3b (HCC) (primary encounter diagnosis) (C18.9) Malignant neoplasm of colon, unspecified part of colon (HCC) (R91.8) Lung nodules T3N1b Rectal cancer status post hemicolectomy August 2013. MSI stable Completed course of adjuvant chemotherapy. Did not tolerate well FOLFOX regimen. Recurrent stage II colon cancer T2N0 in May 2014. Require a completion colectomy. No adjuvant therapy. Persisting Ascites mild - continue monitoring Other vitamin B12 deficiency anemia - Previously had a low B12 level found in 2014. Did receive monthly B12 IM from [id number] with no improvement. Will monitor with labs every 6months CKD (chronic kidney disease) stage 3, GFR 30-59 ml/min Possibly contributing to her anemia. Will Monitor and consider erythropoetin if hgb drops >9.9 Hypercalcemia seems worse - iPTH normal. Responsive to Hydration PLAN: 1. Labs reviewed 2. Will get repeat CTs in 6 months labs same day. 3. Patient prefers to skip Screening mammograms in 1 year. 4. Consult nephrology HPI: Updated Visit, January 26, 2022: Called regarding hypercalcemia which is a chronic problem for her. probably associated with renal failure. Will send her to see nephrology. She also has a salivary stone - I recommended that she see Dr. Graf. Updated Visit, January 12, 2022: Had mammograms in [place] last week which were clear. Otherwise doing well. Didn't have labs today and so will obtain. 01/09/2022 mammograms: BIRADS 1 - Negative. Normal interval follow-up in 12 months. 01/04/2022 CT CAP w/Cont: Chest: 1. Again seen are scattered small noncalcified pulmonary nodules which are overall nonspecific. Themajority are unchanged, however there are at least two new nodules (since 03/08/2020) measuring 0.3-0.4 cm within the right middle lobe and right lower lobe. These may represent sites of small airways inflammation or mucous plugging. Continued attention on subsequent studies is suggested. 2. No lymphadenopathy. 3. Please refer to concurrently acquired and separately reported abdomen CT for findings related tothe upper abdomen. Abdomen / Pelvis: 1. Focal wall thickening involving right mid abdominal jejunal loops with associated interloop ascites, suggestive of enteritis. Correlation with clinical symptoms is suggested. If warranted, consideration could be given to further assessment with contrast-enhanced CT of the abdomen/pelvis. 2. No evidence of metastatic disease within the limitations of a noncontrast examination. 3. No lymphadenopathy. Updated Visit, December 15, 2020: Aleksander is 75 yo and returns in follow up for a history of rectal cancer diagnosed and treted in 2012. And subsequent colon cancer in 2014. She had adjuvant therapy for her rectal cancer but didn't need anything following her colon cancer except for a full colectomy. She is looking for a new PCP and will be seeing Dr. Gomez soon. She is behind on breast screeningand wanted an exam today with subsequent orders for mammography. No other complaints. Total Time Spent: 11 minutes Arnol Daugherty MD, [place], [place] CC: Diana Constantinokylie [address] [place] [phone] [address] Logan Gomez documented [facility] Miscellaneous Notes* Telephone Encounter - Felicity Thomas - 01/24/2022 4:55 PM EDT Patient has been rescheduled to , 01/26. Patient notified and states she saw her lab results in [facility]. Felicity Thomas * Telephone Encounter - Spring Hamilton Sec - 01/24/2022 1:34 PM EDT Please call patient and r/s phone visit. documented in [facility] encounter[facility] [place] Evaluation note* Diagnosis Hypercalcemia- Primary Stage 3a chronic kidney disease (HCC) Malignant neoplasm of rectum (HCC) Malignant neoplasm of rectum documented in this encounter [facility] History of Present illness Narrative* Arnol Daugherty MD - 01/23/2022 12:06 PM EDT Cancelled - left a message documented [facility] [place] Nurse Note* Kamilah Yip - 01/19/2022 9:16 AM EDT Clinical questionnaires incomplete due to Patient was roomed by provider. Phone visit. Kamilah Yip documented in this encounter[facility] [place] Miscellaneous Notes* Telephone Encounter - Felicity Thomas - 01/13/2022 11:59 AM EDT Patient called back and confirmed this appointment. Patient stated she's had a hard time lately trying to stay hydrated. Felicity Thomas * Telephone Encounter - Felicity Thomas - 01/13/2022 9:42 AM EDT Call placed to patient, no answer. Left detailed message on voicemail to call back regarding Hydration appointment. She has been scheduled for Sunday, 01/17 @ 3:00 pm. ELANA: Reminder to place IV Fluid orders. Thanks! Felicity Thomas * Telephone Encounter - Felicity Thomas - 01/13/2022 9:42 AM EDT ----- Message from Arnol Daugherty MD sent at 01/12/2022 4:45 PM EDT ----- Looks like calcium is worse and kidneys are also worse - no clear evidence of malignancy on recent non-contrast imaging. Enteritis may have caused some dehydration and subsequent hypercalcemia - can we hydrate her and recheck her calcium next week please? documented in [facility] History of Present illness Narrative* Arnol Daugherty MD - 01/12/2022 10:42 AM EDT Images from the original note were not included. NAME: Aleksander Barger CLINIC NO.: [id number] DATE OF SERVICE: January 12, 2022 Some elements in this clinic note that are critical to medical decision making have been carefully reviewed and included from a prior clinic note dated: December 15, 2020 Referring Provider: Dr. Stock Additional Clinicians involved in Aleksander Barger's care: Logan Gomez CC: review scans for resolution of ascites. ASSESSMENT: T3N1b Rectal cancer status post hemicolectomy August 2013. MSI stable Completed course of adjuvant chemotherapy. Did not tolerate well FOLFOX regimen. Recurrent stage II colon cancer T2N0 in May 2014. Require a completion colectomy. No adjuvant therapy. Persisting Ascites mild - continue monitoring Other vitamin B12 deficiency anemia - Previously had a low B12 level found in 2014. Did receive monthly B12 IM from [id number] with no improvement. Will monitor with labs every 6months CKD (chronic kidney disease) stage 3, GFR 30-59 ml/min Possibly contributing to her anemia. Will Monitor and consider erythropoetin if hgb drops >9.9 Addendum 01/13/2022 : - Hypercalcemia worse - recheck PTH, iCa., hydrate next week with additional labs., will notify PCP. PLAN: 1. Labs today 2. Call next week with results and consider rescanning in 6 months 3. Screening mammograms in 1 year. TREATMENT TO DATE: 1. Summarized below. HPI: Updated Visit, January 12, 2022: Had mammograms in [place] last week which were clear. Otherwise doing well. Didn't have labs today and so will obtain. 01/09/2022 mammograms: BIRADS 1 - Negative. Normal interval follow-up in 12 months. 01/04/2022 CT CAP w/Cont: Chest: 1. Again seen are scattered small noncalcified pulmonary nodules which are overall nonspecific. Themajority are unchanged, however there are at least two new nodules (since 03/08/2020) measuring 0.3-0.4 cm within the right middle lobe and right lower lobe. These may represent sites of small airways inflammation or mucous plugging. Continued attention on subsequent studies is suggested. 2. No lymphadenopathy. 3. Please refer to concurrently acquired and separately reported abdomen CT for findings related tothe upper abdomen. Abdomen / Pelvis: 1. Focal wall thickening involving right mid abdominal jejunal loops with associated interloop ascites, suggestive of enteritis. Correlation with clinical symptoms is suggested. If warranted, consideration could be given to further assessment with contrast-enhanced CT of the abdomen/pelvis. 2. No evidence of metastatic disease within the limitations of a noncontrast examination. 3. No lymphadenopathy. Updated Visit, December 15, 2020: Aleksander is 75 yo and returns in follow up for a history of rectal cancer diagnosed and treted in 2012. And subsequent colon cancer in 2013. She had adjuvant therapy for her rectal cancer but didn't need anything following her colon cancer except for a full colectomy. She is looking for a new PCP and will be seeing Dr. Gomez soon. She is behind on breast screeningand wanted an exam today with subsequent orders for mammography. No other complaints. Updated Visit, June 16, 2020: Reviewed CT's with no evidence of recurrence. Ascites is minimal. Left flank pain occurred briefly a few weeks ago and resolved overnight Always has loose stools. Updated Visit, March 17, 2020: This is a 75 year old female Had slight enteritis prior to recent CT on 03/08/2020 - which explains the pelvic ascites. Will follow to resolution. Due to chronic diarrhea, she remains dehydrated. Had ileostomy but then a year later recurred in 2013. - had colectomy Case Hx: 04/2013 : imaging obtained due to abdominal discomfort notes circumferential wall thickening of the sigmoid colon 06/2013 : colonoscopy notes obstructing rectal mass at 15 cm from anal verge- positive for moderately differentiated adenocarcinoma- staging imaging included thyroid nodule (biopsy negative for malignancy) 08/2013 : referred to [facility] main and completed subtotal colectomy and proctosigmoidectomy pathology notes [id number] disease ( 2 of 15 lymph nodes involved)- low grade adenocarcinoma (MSI stable) 11/2013 : starts adjuvant folfox, does not tolerate regimen- completes three cycles of therapy but requires two trips to ER and one admission 02/2014 : completes four further cycles of single agent 5fu- again did require hospitalization for pre-renal azotemia- therapy discontinued 05/2014 : colonoscopy notes adenocarcinoma with high grade dysplasia- completes colectomy pT2N0 moderately differentiated adenocarcinoma - given previous difficulty with adjuvant treatment- therapy deferred She also has a history of anemia and was on B12 supplements from [id number], however it was felt it had little benefit and these injections were stopped. She does have Stage 3 chronic kidney disease. Today her anemia appears stable. RADIOGRAPHIC DATA: Reviewed on December 15, 2020 4. 06/09/2020 CT Abd/Pelvis: 1. No evidence of intra-abdominal/pelvic metastases. No interval changesince 03/08/2020. 2. Nonspecific trace loculated ascites/soft tissues prominence in the left hemipelvis, stable. 3. 03/08/2020 CT CAP w/o IV cont: Chest: 1. Bilateral subcentimeter pulmonary nodules, unchanged from prior study of 09/01/2019. 2. No substantial intrathoracic adenopathy is identified. Abd/Pelvis: 1. Small amount of abdominal and pelvic ascites, a new finding, as above. 2. Mild, diffuse small bowel wall thickening is appreciated within the pelvis, a nonspecific finding. This may relate to prior radiation therapy. 3. A minimally prominent retroperitoneal lymph node is again noted, unchanged from the prior study of 09/01/2019. 2. ct c/a/p without contrast 09/01/19 1. Subcentimeter right-sided pulmonary nodules, stable. There has been interval resolution of previously identified small reticulonodular infiltrate within the right lower lobe. 2. Ectasia of the ascending thoracic aorta, unchanged. 3. Heterogeneous enlargement of the right lobe of the thyroid gland, right lobe thyroid hypodensity, felt to be stable, poorly characterized on these unenhanced images. 1. Minimally prominent aortocaval retroperitoneal lymph node appears unchanged from the prior studyof 09/03/2018. 2. Otherwise, essentially unremarkable postoperative appearance to the abdomen and pelvis. 1. Ct Chest 09/03/18 1. Stable subcentimeter right-sided pulmonary nodules, as above. 2. Heterogeneous enlargement of the right lobe of the thyroid gland, areas of decreased attenuationinvolving the right lobe, not as well characterized on these unenhanced images, however, stable. 3. Mild ectasia of the ascending thoracic aorta, stable. CT abdomen and pelvis 09/03/18 1. Stable appearance to a minimally prominent retroperitoneal lymph node, as above. 2. Postoperative changes. No definite CT evidence for metastatic or recurrent on these unenhanced images REVIEW OF SYSTEMS Per HPI and otherwise negative by full review of organ systems. ECOG PERFORMANCE STATUS: 0 PHYSICAL EXAMINATION: Vitals: BP 179/77 Pulse 74 Temp (Src) 97.4 (Temporal) Resp 16 Ht 5' 2.047 (1.58m) Wt 177lb 6.4 oz (80.5kg) SpO2 98% BMI 32.40 kg/(m^2). Body surface area is 1.88 meters squared. Exam limited to gross visualization where appropriate due to COVID-19. Gen.: This is an age-appropriate patient in no acute distress. Head: Appears atraumatic with no visible lesions. Eyes: Pupils equally round and reactive to light, extraocular muscles are intact. Neck: Supple. Mouth: Masked. Respiratory: Appears to be respiring comfortably. Neurologic: Nonfocal to gross visualization. Alert and oriented 3. Psychiatric: No evidence of inappropriate anxiety or depression. Skin: Visible areas of skin without rash, lesions, wounds or petechiae. ALLERGIES: ALLERGIES Allergen Reactions Dtap-Ipv Component * Other: See Comments Maria Alejandra Camarillo Flu Vac 2018 65up-A* Other: See Comments Valeria Camar[place] Pneumococcal Vaccine Other: See Comments Maria Alejandra Camarillo Penicillins Unknown Tetracyclines Rash MEDICATIONS: Multivitamin capsule Take 1 capsule by mouth once daily. amLODIPine (NORVASC) 5 mg tablet Take 5 mg by mouth once daily. lisinopril (ZESTRIL, PRINIVIL) 20 mg tablet Take 10 mg by mouth twice daily. aspirin, enteric coated (ASPIRIN, ENTERIC COATED) 81 mg EC tablet Take 81 mg by mouth once daily. LOPERAMIDE HCL (IMODIUM ORAL) Take by mouth as needed. LABORATORY VALUES: WBC (k/uL) Date Value 12/15/2020 8.80 RBC (m/uL) Date Value 12/15/2020 3.68 (L) Hemoglobin (g/dL) Date Value 12/15/2020 11.4 (L) Hematocrit (%) Date Value 12/15/2020 33.8 (L) MCV (fL) Date Value 12/15/2020 91.8 MCH (pG) Date Value 12/15/2020 31.0 MCHC (g/dL) Date Value 12/15/2020 33.7 RDW-CV (%) Date Value 12/15/2020 12.3 Platelet Count (k/uL) Date Value 12/15/2020 281 MPV (fL) Date Value 12/15/2020 10.0 Glucose (mg/dL) Date Value 12/15/2020 95 BUN (mg/dL) Date Value 12/15/2020 18 Creatinine (mg/dL) Date Value 12/15/2020 1.16 (H) Sodium (mmol/L) Date Value 12/15/2020 131 (L) Potassium (mmol/L) Date Value 12/15/2020 4.6 Chloride (mmol/L) Date Value 12/15/2020 97 CO2 (mmol/L) Date Value 12/15/2020 27 Protein, Total (g/dL) Date Value 12/15/2020 6.7 Albumin (g/dL) Date Value 12/15/2020 4.2 Calcium (mg/dL) Date Value 12/15/2020 10.6 (H) Alkaline Phosphatase (U/L) Date Value 12/15/2020 80 Bilirubin, Total (mg/dL) Date Value 12/15/2020 0.5 AST (U/L) Date Value 12/15/2020 19 ALT (U/L) Date Value 12/15/2020 13 CEA (ng/mL) Date Value 12/15/2020 0.8 06/09/2020 0.7 03/17/2020 0.9 12/10/2019 1.0 09/08/2019 1.0 DIAGNOSIS: (C20) Malignant neoplasm of rectum (HCC) (primary encounter diagnosis) Plan: CEA BLD, COMP METABOLIC PANEL, CBC + DIFF, COMP METABOLIC PANEL, CALCIUM IONIZED B, PTH RELATED PEPTIDE, VITAMIN D 25 HYDROXY, VITAMIN D1 25-DIHYDR (R91.8) Lung nodules Plan: CBC + DIFF, COMP METABOLIC PANEL, CALCIUM IONIZED B, PTH RELATED PEPTIDE, VITAMIN D 25 HYDROXY, VITAMIN D1 25-DIHYDR (Z12.31) Encounter for screening mammogram for breast cancer Plan: OLY SCREENING (N18.31) Stage 3a chronic kidney disease (HCC) Plan: CBC + DIFF, COMP METABOLIC PANEL, CBC + DIFF, COMP METABOLIC PANEL, CALCIUM IONIZED B, PTH RELATED PEPTIDE, VITAMIN D 25 HYDROXY, VITAMIN D1 25-DIHYDR (D64.9) Anemia, unspecified type Plan: CBC + DIFF (E83.52) Hypercalcemia Plan: PTH INTACT BLD, CALCIUM IONIZED B, CBC + DIFF, COMP METABOLIC PANEL, CALCIUM IONIZED B, PTH RELATED PEPTIDE, VITAMIN D 25 HYDROXY, VITAMIN D1 25-DIHYDR PAST MEDICAL HISTORY Diagnosis Date Bleeding ulcer Bowel disease Diverticulitis Fracture left arm 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) History of stomach ulcers Hypertension Menopause Rectal cancer (HCC) Thyroid nodule PAST SURGICAL HISTORY Procedure Laterality Date APPENDECTOMY CHOLECYSTECTOMY HX COLONOSCOPY DILATION & CURETTAGE DX&/THER NONOBSTETRIC Dilation & curettage F SIGMOIDOSCOPY FLEXIBLE W BIOPSY PAST SURGICAL HISTORY OF 07/15/2014 Bilateral ureteral stent placement by Urology, laparotomy, lysis of adhesions, takedown of diverting loop ileostomy, partial proctectomy, completion colectomy and ileal resection in continuity, ilealJ-pouch anal anastomosis ([facility]- 29), diverting loop ileostomy US GUIDED THYROID BIOPSY Social History Tobacco Use Smoking status: Never Smoker Smokeless tobacco: Never Used Vaping Use Vaping Use: Never used Substance Use Topics Alcohol use: No Drug use: No FAMILY HISTORY Problem Relation Age of Onset other (htn [Other]) Father Ischemic Heart Disease Father of massive [place] at 67 Arnol Daugherty MD, [place], [place] CC: Diana Stock [address] [place] [phone] [address] Logan Gomez documented in this encounterHol[facility]Evalun[facility]* Diagnosis Malignant neoplasm of colon, unspecified part of colon (HCC)- Primary [facility] Diagnosis Malignant neoplasm of rectum (HCC)- Primary Malignant neoplasm of rectum Lung nodules Other nonspecific abnormal finding of lung field Encounter for screening mammogram for breast cancer Stage 3a chronic kidney disease (HCC) Anemia, unspecified type Hypercalcemia [facility]* Diagnosis Chronic renal failure, stage 3b (HCC)- Primary Malignant neoplasm of colon, unspecified part of colon (HCC) Lung nodules Other nonspecific abnormal finding of lung field [facility]* Diagnosis RAMEZ (acute kidney injury) (HCC)- Primary Acute kidney failure, unspecified Hypercalcemia Hyponatremia Hyposmolality and/or hyponatremia [facility]* Diagnosis Chronic renal failure, stage 3b (HCC)- Primary Hypercalcemia Hydronephrosis of left kidney Hydronephrosis Other vitamin B12 deficiency anemia Malignant neoplasm of colon, unspecified part of colon (HCC) Malignant neoplasm of rectum (HCC) Malignant neoplasm of rectum [facility]* Diagnosis Chronic renal failure, stage 3b (HCC)- Primary Hypercalcemia [facility]* Diagnosis Hyperparathyroidism (HCC)- Primary Hyperparathyroidism, unspecified Hypercalcemia Goiter Goiter, unspecified documented [facility] this [facility]* Diagnosis Salivary stones- Primary Sialolithiasis [facility]* Diagnosis Malignant neoplasm of colon, unspecified part of colon (HCC)- Primary Stage 3b chronic kidney disease (HCC) Hypercalcemia Malignant neoplasm of rectum (HCC) Malignant neoplasm of rectum Anemia, unspecified type [facility]* Diagnosis Hyperparathyroidism (HCC)- Primary Hyperparathyroidism, unspecified Thyroid nodule Nontoxic uninodular goiter Hypercalcemia Osteopenia of multiple sites [facility]* Diagnosis Nontoxic multinodular goiter- Primary Nontoxic single thyroid nodule Nontoxic uninodular goiter documented in this encounter [facility] note* Diagnosis Chronic kidney disease (CKD) stage G3b/A1, moderately decreased glomerular filtration rate (GFR) between 30-44 mL/min/1.73 square meter and albuminuria creatinine ratio less than 30 mg/g (HCC)- Primary Chronic kidney disease, Stage III (moderate) Renal hypertension Unspecified hypertensive kidney disease with chronic kidney disease stage I through stage IV, or unspecified Anemia, unspecified type Hyposmolality syndrome Hyposmolality and/or hyponatremia [facility]* Diagnosis Hypercalcemia- Primary Hyperparathyroid (HCC) 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cer Personal history of malignant neoplasm of large intestine Functional diarrhea Stage 3b chronic kidney disease (HCC) [facility]* Diagnosis Hypercalcemia Hyperparathyroidism (HCC) Hyperparathyroidism, unspecified documented in this encounter [facility] note* Diagnosis Chronic renal failure, stage 3b (HCC) [facility]* Diagnosis Thyroid nodule Nontoxic uninodular goiter documented in this encounter [facility] noteNo assessment information availableMagruder Memorial Hospital Work Phone: Evaluation note* Diagnosis 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cer- Primary Personal history of malignant neoplasm of large intestine Hyperparathyroid (HCC) Hypercalcemia Stage 3b chronic kidney disease (HCC) Anemia, unspecified type documented in this encounter [facility] note* Diagnosis Onset Date Resolution Status Abscess or cellulitis of scalp acute [facility] Work Phone: Evaluation note* Diagnosis Onset Date Resolution Status Abscess or cellulitis of scalp acute Anemia acute Chronic kidney disease, stage 3b acute Hypercalcemia acute Hypertensive nephropathy acu te Hyperuricemia acute Hyponatremia acute [facility] Work Phone: Evaluation note* Diagnosis Cervicalgia [facility] Diagnosis Malignant neoplasm of colon, unspecified part of colon (HCC) Lung nodules Other nonspecific abnormal finding of lung field Malignant neoplasm of rectum (HCC) Malignant neoplasm of rectum Stage 3a chronic kidney disease (HCC) Anemia, unspecified type [facility] Diagnosis Lung nodules Other nonspecific abnormal finding of lung field Other ascites Malignant neoplasm of rectum (HCC) Malignant neoplasm of rectum [facility]* Diagnosis Abscess, scalp- Primary Cellulitis and abscess of other specified site Essential hypertension (CMS/HCC) Unspecified essential hypertension Stage 3b chronic kidney disease (CKD) (CMS/HCC) Medicare annual wellness visit, subsequent- Primary Essential hypertension (CMS/HCC) Unspecified essential hypertension Stage 3b chronic kidney disease (CKD) (CMS/HCC) Aneurysm of ascending aorta without rupture (CMS/HCC) Hyperparathyroidism ([facility]/HCC) Hyperparathyroidism, unspecified documented in this encounter [facility]* Diagnosis 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cer- Primary Personal history of malignant neoplasm of large intestine Stage 3b chronic kidney disease (HCC) Megaloblastic anemia due to vitamin B12 deficiency Other vitamin B12 deficiency anemia [facility] Diagnosis Megaloblastic anemia due to vitamin B12 deficiency- Primary Other vitamin B12 deficiency anemia Other vitamin B12 deficiency anemia Malignant neoplasm of colon, unspecified part of colon (HCC) Hydronephrosis of left kidney Hydronephrosis Hypercalcemia [facility] Diagnosis Essential (primary) hypertension (CMS/HCC) Unspecified essential hypertension documented in this encounter [facility] HealthcareEvaluation note* Diagnosis Megaloblastic anemia due to vitamin B12 deficiency- Primary Other vitamin B12 deficiency anemia Other vitamin B12 deficiency anemia Malignant neoplasm of colon, unspecified part of colon (HCC) Hydronephrosis of left kidney Hydronephrosis Hypercalcemia [facility] Diagnosis Onset Date Resolution Status Admit Date Anemia acute Ciera 8th, 2 025 10:20am Chronic kidney disease, stage 3b acu te October 01, 2024 10:20am Hypercalcemia acute September 10:20am Hypertensive nephropathy acute October 01, 2024 10:20am Hyperuricemia acute September 10:20am Hypomagnesemia acute September 10:20am Hyponatremia acute October 01, 2024 10:20am [facility] Work Phone: Evaluation note* Diagnosis Abscess, scalp- Primary Cellulitis and abscess of other specified site Essential hypertension (CMS/HCC) Unspecified essential hypertension Stage 3b chronic kidney disease (CKD) (CMS/HCC) Medicare annual wellness visit, subsequent- Primary Essential hypertension (CMS/HCC) Unspecified essential hypertension Stage 3b chronic kidney disease (CKD) (CMS/HCC) Aneurysm of ascending aorta without rupture (CMS/HCC) Hyperparathyroidism (CMS/HCC) Hyperparathyroidism, unspecified Dermatitis- Primary Contact dermatitis and other eczema, due to unspecified cause Essential hypertension (CMS/HCC) Unspecified essential hypertension Stage 3b chronic kidney disease (CKD) (CMS/HCC) documented in this encounter [facility] N[facility]ative - Reported* Type Description Date Medical History high blood pressure Medical History Hx of colon and rectal cancer Surgical History cholecystectomy Surgical History appendectomy Surgical History colonoscopy Surgical History cancer, colon x3 Hospitalization History [facility] 1974 Hospitalization History possible bowel obstructi on 03/12 Poppin Other Reason for referral (narrative)* Diagnostic Procedure Only (Routine) - Pending Review Specialty Diagnoses / Procedures Referred By Carline t Referred To Contact BR IMAGING Diagnoses Encounter for screening mammogram for breast cancer Procedures OLY SCREENING SCREENING MAMMOGRAPHY BI 2-VIEW BREAST INC Arnol Haro MD [address] [place] [address] [place] [address] [facility] [address] [place] [id number] Referral ID Status Reason Start Date Expiration Date Visits Requested Visits Authorized [id number] Pending Review Auto-Generat ed Referral 01/12/2022 02/11/2023 1 1 [facility] for referral (narrative)* Diagnostic Procedure Only (Routine) - Authorized Specialty Diagnoses / Procedures Referred By Contac t Referred To Contact XR IMAGING Diagnoses Hypercalcemia Hyperparathyroidism (HCC) Procedures DXA-FOREARM SKELETON DXA BONE DENSITY STUDY 1/>SITES Ghazala Mckay MD [address] [place] [address] Xr Imaging Referral ID Status Reason Start Date Expiration Date Visits Requested Visits Authorized [id number] Authorized Auto-Generat ed Referral 05/23/2022 06/22/2023 1 1 T [facility] for referral (narrative)* Diagnostic Procedure Only (Routine) - Authorized Specialty Diagnoses / Procedures Referred By Contac t Referred To Contact US IMAGING Diagnoses Thyroid nodule Procedures US THYROID/PARATHYROID US SOFT TISSUE HEAD & NECK REAL TIME IMGE Ghazala Cabrales MD [address] [place] [address] Us Imaging Referral ID Status Reason Start Date Expiration Date Visits Requested Visits Authorized [id number] Authorized Auto-Generat ed Referral 08/29/2022 09/28/2023 1 1 [facility] for referral (narrative)* Diagnostic Procedure Only (Routine) - Closed Specialty Diagnoses / Procedures Referred By Contac t Referred To Contact XR IMAGING Diagnoses Hypercalcemia Hyperparathyroidism (HCC) Procedures DXA-FOREARM SKELETON DXA BONE DENSITY STUDY 1/>SITES Ghazala Mckay MD [address] [place] [address] Xr Imaging Referral ID Status Reason Start Date Expiration Date V isits Requested Visits Authorized [id number] Closed Auto-Generate d Referral 05/23/2022 06/22/2023 1 1 [facility] for referral (narrative)* Diagnostic Procedure Only (Routine) - Closed Specialty Diagnoses / Procedures Referred By Contac t Referred To Contact US IMAGING Diagnoses Chronic renal failure, stage 3b (HCC) Procedures US KIDNEY/BLADDER US RETROPERITONEAL REAL TIME W/IMAGE COMPLETE Arash Mo MD [address] [place] [address] Us Imaging Referral ID Status Reason Start Date Expiration Date V isits Requested Visits Authorized [id number] Closed Auto-Generate d Referral 02/23/2022 03/25/2023 1 1 [facility] for referral (narrative)* Diagnostic Procedure Only (Routine) - Closed Specialty Diagnoses / Procedures Referred By Contac t Referred To Contact US IMAGING Diagnoses Thyroid nodule Procedures US THYROID/PARATHYROID US SOFT TISSUE HEAD & NECK REAL TIME IMGE Ghazala Cabrales MD [address] [place] [address] Us Imaging Referral ID Status Reason Start Date Expiration Date V isits Requested Visits Authorized [id number] Closed Auto-Generate d Referral 08/29/2022 09/28/2023 1 1 [facility] for visit Narrative* Diagnostic Procedure Only (Routine) - Closed Specialty Diagnoses / Procedures Referred By Contac t Referred To Contact XR IMAGING Diagnoses Hypercalcemia Hyperparathyroidism (HCC) Procedures DXA-FOREARM SKELETON DXA BONE DENSITY STUDY 1/>SITES APPENDICLR Ghazala Guzmán MD [address] [place] [address] Xr Imaging Referral ID Status Reason Start Date Expiration Date V isits Requested Visits Authorized [id number] Closed Auto-Generate d Referral 05/23/2022 06/22/2023 1 1 [facility] for visit Narrative* Diagnostic Procedure Only (Routine) - Closed Specialty Diagnoses / Procedures Referred By Contac t Referred To Contact US IMAGING Diagnoses Chronic renal failure, stage 3b (HCC) Procedures US KIDNEY/BLADDER US RETROPERITONEAL REAL TIME W/IMAGE COMPLETE Arash Mo MD [address] [place] [address] Us Imaging Referral ID Status Reason Start Date Expiration Date V isits Requested Visits Authorized [id number] Closed Auto-Generate d Referral 02/23/2022 03/25/2023 1 1 [facility] Diagnostic Procedure Only (Routine) - Closed Specialty Diagnoses / Procedures Referred By Imanac t Referred To Contact US IMAGING Diagnoses Thyroid nodule Procedures US THYROID/PARATHYROID US SOFT TISSUE HEAD & NECK REAL TIME IMGE Ghazala Cabrales MD [address] [place] [address] Us Imaging Referral ID Status Reason Start Date Expiration Date V isits Requested Visits Authorized [id number] Closed Auto-Generate d Referral 08/29/2022 09/28/2023 1 1 [facility] Summary Purpose Family History Relationship Condition Age at Onset Recorded Date/T ervin father Heart disease Unknown Unknown Not Specified Unknown Relationship Condition Age at Onset Recorded Date/T ervin father Heart disease Unknown Unknown mother Unknown Advance Directives Documents on File Type Date Recorded Patient [employer] Expl anation Advance Directive(s) 12/16/2013 4:36 PM Documents on File Type Date Recorded Patient [employer] Expl anation Advance Directive(s) 12/16/2013 4:36 PM Advance Directive Response Recorded Date/ Time Advance Directives No July 25, 2023 4:40pm Advance Directive Response Recorded Date/ Time Advance Directives No July 25, 2023 5:40pm Reason for Referral Specialty Diagnoses / Procedures Referred By Carline okeefe Referred To Contact CT IMAGING Diagnoses Lung nodules Procedures CT CHEST W IVCON DIAGNOSTIC COMPUTED TOMOGRAPHY THORAX W/CONTRAST Arnol Daugherty MD [address] [place] [address] [place] [address] Ct Imaging Referral ID Status Reason Start Date Expiration Date Visits Requested Visits Authorized [id number] Pending Review Auto-Generat ed Referral 07/29/2022 02/25/2023 1 1 Specialty Diagnoses / Procedures Referred By Carline t Referred To Contact CT IMAGING Diagnoses Malignant neoplasm of colon, unspecified part of colon (HCC) Procedures CT ABD/PEL W IVCON CT ABD & PELVIS W/CONTRAST Arnol Daugherty MD [address] [place] [address] Ct Imaging Referral ID Status Reason Start Date Expiration Date Visits Requested Visits Authorized [id number] Pending Review Auto-Generat ed Referral 07/29/2022 02/25/2023 1 1 Specialty Diagnoses / Procedures Referred By Contac t Referred To Contact Nephrology Diagnoses Chronic renal failure, stage 3b (HCC) Procedures CONSULT TO KIDNEY MEDICINE OFFICE/OUTPATIENT [facility] 60-74 MINUTES Arnol Daugherty MD [address] [place] [address] [place] [address] Referral ID Status Reason Start Date Expiration Date Visits Requested Visits Authorized [id number] Authorized PCP Requested Referral 01/26/2022 01/26/2023 1 1 Specialty Diagnoses / Procedures Referred By Contac t Referred To Contact Ent - Otolaryngology Diagnoses Salivary stones Procedures CONSULT TO ENT Arnol Daugherty MD [address] [place] [address] [place] [address] Referral ID Status Reason Start Date Expiration Date Visits Requested Visits Authorized [id number] Ref Not Required PCP Requested Referral 07/14/2023 1 1 Specialty Diagnoses / Procedures Referred By Contac t Referred To Contact Nephrology Diagnoses Stage 3b chronic kidney disease (HCC) Hypercalcemia Procedures CONSULT TO KIDNEY MEDICINE OFFICE/OUTPATIENT [facility] 60-74 MINUTES Arnol Daugherty MD [address] [place] [address] [place] [address] Referral ID Status Reason Start Date Expiration Date Visits Requested Visits Authorized [id number] Authorized PCP Requested Referral 07/27/2022 07/27/2023 1 1 Specialty Diagnoses / Procedures Referred By Contac t Referred To Contact Ent - Otolaryngology Diagnoses Hypercalcemia Hyperparathyroid (HCC) Procedures CONSULT TO ENT Arnol Daugherty MD [address] [place] [address] [place] [address] Referral ID Status Reason Start Date Expiration Date Visits Requested Visits Authorized [id number] Ref Not Required PCP Requested Referral 01/25/2023 01/25/2024 1 1 Specialty Diagnoses / Procedures Referred By Contac t Referred To Contact CT IMAGING Diagnoses Cervicalgia Procedures CT NECK SOFT TISSUE WO IVCON CT SOFT TISSUE NECK W/O CONTRAST MATERIAL Ace Savage, 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 [address] [place] [address] [place] [address] [place] [address] Referral ID Status Reason Start Date Expiration Date V isits Requested Visits Authorized [id number] Closed Auto-Generate d Referral 07/17/2022 08/16/2023 1 1 Specialty Diagnoses / Procedures Referred By Contac t Referred To Contact CT IMAGING Diagnoses Lung nodules Procedures CT CHEST W IVCON DIAGNOSTIC COMPUTED TOMOGRAPHY THORAX W/CONTRAST Arnol Daugherty MD [address] [place] [address] [place] [address] [place] [address] Referral ID Status Reason Start Date Expiration Date V isits Requested Visits Authorized [id number] Closed Auto-Generated Referral Financial Clearance Not Required 07/29/2022 02/25/2023 1 1 Specialty Diagnoses / Procedures Referred By Contac t Referred To Contact CT IMAGING Diagnoses Malignant neoplasm of colon, unspecified part of colon (HCC) Procedures CT ABD/PEL W IVCON CT ABD & PELVIS W/CONTRAST Arnol Daugherty MD [address] [place] [address] [place] [address] [place] [address] Referral ID Status Reason Start Date Expiration Date V isits Requested Visits Authorized [id number] Closed Auto-Generated Referral Financial Clearance Not Required 07/29/2022 02/25/2023 1 1 Medications Administered Section Inactive Administered Medications - up to 3 most recent administrations Medication Order MAR Action Action Date Dose Rate Site denosumab 60 mg injection (PROLIA) 60 mg, SUBCUTANEOUS, ONCE, 1 dose, On Sun03/24/22 at 1500, Allow To Come To Room Temperature Before Administration. REFRIGERATE Given 03/24/2022 3:43 PM EDT 60 mg Arm, Left NaCl 0.9% 1,000 mL INTRAVENOUS, at 999 mL/hr, Administer over 1 Hours, ONCE, 1 dose, On Sun03/24/22 at 1500 New Bag/Syringe/Bottle 03/24/2022 2:40 PM EDT 999 mL/hr Chief Complaint and Reason for Visit Chief Complaint e21.0 Chief Complaint poss bug bite on the back of neck Chief Complaint poss bug bite on the back of neck Rash on back of neck Reason for Visit Abscess or celluliti s of scalp Chief Complaint poss bug bite on the back of neck RENAL 6 MONTH F/U Reason for Visit Abscess or celluliti s of scalp Anemia Chronic kidney disease, stage 3b Hypercalcemia Hypertensive nephropathy Hyperuricemia Hyponatremia Chief Complaint Admit Date RENAL 6 MONTH F/U October 01, 2024 10 :20am Reason for Visit Admit Date Anemia October 01, 2024 10 :20am Chronic kidney disease, stage 3b October 01, 2024 10:20am Hypercalcemia October 01, 2024 10 :20am Hypertensive nephropathy October 01 10:20am Hyperuricemia October 01, 2024 10 :20am Hypomagnesemia October 01, 2024 10 :20am Hyponatremia October 01, 2024 10 :20am Chief Complaint Admit Date Pain down left side back to leg February 10:31am Additional Source Comments INFORMATION SOURCE (unrecogn ized section and content) DATE CREATED AUTHOR 08/29/2021 [facility] DATE CREATED AUTHOR AUTHOR'S ORGANIZ ATION 03/02/2022 [facility] DATE CREATED AUTHOR AUTHOR'S ORGANIZ ATION 08/09/2023 [facility] DATE CREATED AUTHOR AUTHOR'S ORGANIZ ATION 10/02/2024 [facility] DATE CREATED AUTHOR AUTHOR'S ORGANIZ ATION 12/14/2024 [facility] EPIC Source Comments (unrecognize d section and content) In the event this informatio n is protected by the Federal Confidentiality of Alcohol and Drug Abuse Patient Records regulations: The Federal rules restrict any use of the information to criminally investigate or prosecute any alcohol or drug abuse patient.[facility] the event this information is protected by the Federal Confidentiality of Alcohol and Drug Abuse Patient Records regulations: The Federal rules restrict any use of the information to criminally investigate or prosecute any alcohol or drug abuse patient.[facility] the event this information is protected by the Federal Confidentiality of Alcohol and Drug Abuse Patient Records regulations: The Federal rules restrict any use of the information to criminally investigate or prosecute any alcohol or drug abuse patient.[facility] the event this information is protected by the Federal Confidentiality of Alcohol and Drug Abuse Patient Records regulations: The Federal rules restrict any use of the information to criminally investigate or prosecute any alcohol or drug abuse patient.[facility] the event this information is protected by the Federal Confidentiality of Alcohol and Drug Abuse Patient Records regulations: The Federal rules restrict any use of the information to criminally investigate or prosecute any alcohol or drug abuse patient.[facility] the event this information is protected by the Federal Confidentiality of Alcohol and Drug Abuse Patient Records regulations: The Federal rules restrict any use of the information to criminally investigate or prosecute any alcohol or drug abuse patient.[facility] the event this information is protected by the Federal Confidentiality of Alcohol and Drug Abuse Patient Records regulations: The Federal rules restrict any use of the information to criminally investigate or prosecute any alcohol or drug abuse patient.[facility] the event this information is protected by the Federal Confidentiality of Alcohol and Drug Abuse Patient Records regulations: The Federal rules restrict any use of the information to criminally investigate or prosecute any alcohol or drug abuse patient.[facility] the event this information is protected by the Federal Confidentiality of Alcohol and Drug Abuse Patient Records regulations: The Federal rules restrict any use of the information to criminally investigate or prosecute any alcohol or drug abuse patient.[facility] the event this information is protected by the Federal Confidentiality of Alcohol and Drug Abuse Patient Records regulations: The Federal rules restrict any use of the information to criminally investigate or prosecute any alcohol or drug abuse patient.[facility] the event this information is protected by the Federal Confidentiality of Alcohol and Drug Abuse Patient Records regulations: The Federal rules restrict any use of the information to criminally investigate or prosecute any alcohol or drug abuse patient.[facility] the event this information is protected by the Federal Confidentiality of Alcohol and Drug Abuse Patient Records regulations: The Federal rules restrict any use of the information to criminally investigate or prosecute any alcohol or drug abuse patient.[facility] the event this information is protected by the Federal Confidentiality of Alcohol and Drug Abuse Patient Records regulations: The Federal rules restrict any use of the information to criminally investigate or prosecute any alcohol or drug abuse patient.[facility] Jackson[facility] the event this information is protected by the Federal Confidentiality of Alcohol and Drug Abuse Patient Records regulations: The Federal rules restrict any use of the information to criminally investigate or prosecute any alcohol or drug abuse patient.[facility] Jackson[facility] the event this information is protected by the Federal Confidentiality of Alcohol and Drug Abuse Patient Records regulations: The Federal rules restrict any use of the information to criminally investigate or prosecute any alcohol or drug abuse patient.[facility] the event this information is protected by the Federal Confidentiality of Alcohol and Drug Abuse Patient Records regulations: The Federal rules restrict any use of the information to criminally investigate or prosecute any alcohol or drug abuse patient.[facility] the event this information is protected by the Federal Confidentiality of Alcohol and Drug Abuse Patient Records regulations: The Federal rules restrict any use of the information to criminally investigate or prosecute any alcohol or drug abuse patient.[facility] Jackson[facility] the event this information is protected by the Federal Confidentiality of Alcohol and Drug Abuse Patient Records regulations: The Federal rules restrict any use of the information to criminally investigate or prosecute any alcohol or drug abuse patient.[facility] the event this information is protected by the Federal Confidentiality of Alcohol and Drug Abuse Patient Records regulations: The Federal rules restrict any use of the information to criminally investigate or prosecute any alcohol or drug abuse patient.[facility] Jackson[facility] the event this information is protected by the Federal Confidentiality of Alcohol and Drug Abuse Patient Records regulations: The Federal rules restrict any use of the information to criminally investigate or prosecute any alcohol or drug abuse patient.[facility] Jackson[facility] the event this information is protected by the Federal Confidentiality of Alcohol and Drug Abuse Patient Records regulations: The Federal rules restrict any use of the information to criminally investigate or prosecute any alcohol or drug abuse patient.[facility] the event this information is protected by the Federal Confidentiality of Alcohol and Drug Abuse Patient Records regulations: The Federal rules restrict any use of the information to criminally investigate or prosecute any alcohol or drug abuse patient.[facility] the event this information is protected by the Federal Confidentiality of Alcohol and Drug Abuse Patient Records regulations: The Federal rules restrict any use of the information to criminally investigate or prosecute any alcohol or drug abuse patient.[facility] the event this information is protected by the Federal Confidentiality of Alcohol and Drug Abuse Patient Records regulations: The Federal rules restrict any use of the information to criminally investigate or prosecute any alcohol or drug abuse patient.[facility] the event this information is protected by the Federal Confidentiality of Alcohol and Drug Abuse Patient Records regulations: The Federal rules restrict any use of the information to criminally investigate or prosecute any alcohol or drug abuse patient.[facility] Jackson[facility] the event this information is protected by the Federal Confidentiality of Alcohol and Drug Abuse Patient Records regulations: The Federal rules restrict any use of the information to criminally investigate or prosecute any alcohol or drug abuse patient.[facility] Jackson[facility] the event this information is protected by the Federal Confidentiality of Alcohol and Drug Abuse Patient Records regulations: The Federal rules restrict any use of the information to criminally investigate or prosecute any alcohol or drug abuse patient.[facility] Jackson[facility] the event this information is protected by the Federal Confidentiality of Alcohol and Drug Abuse Patient Records regulations: The Federal rules restrict any use of the information to criminally investigate or prosecute any alcohol or drug abuse patient.[facility] the event this information is protected by the Federal Confidentiality of Alcohol and Drug Abuse Patient Records regulations: The Federal rules restrict any use of the information to criminally investigate or prosecute any alcohol or drug abuse patient.[facility] [place] the event this information is protected by the Federal Confidentiality of Alcohol and Drug Abuse Patient Records regulations: The Federal rules restrict any use of the information to criminally investigate or prosecute any alcohol or drug abuse patient.[facility] [place] the event this information is protected by the Federal Confidentiality of Alcohol and Drug Abuse Patient Records regulations: The Federal rules restrict any use of the information to criminally investigate or prosecute any alcohol or drug abuse patient.[facility] [place] the event this information is protected by the Federal Confidentiality of Alcohol and Drug Abuse Patient Records regulations: The Federal rules restrict any use of the information to criminally investigate or prosecute any alcohol or drug abuse patient.[facility] [place] the event this information is protected by the Federal Confidentiality of Alcohol and Drug Abuse Patient Records regulations: The Federal rules restrict any use of the information to criminally investigate or prosecute any alcohol or drug abuse patient.[facility] [place] the event this information is protected by the Federal Confidentiality of Alcohol and Drug Abuse Patient Records regulations: The Federal rules restrict any use of the information to criminally investigate or prosecute any alcohol or drug abuse patient.[facility] Jackson[facility] the event this information is protected by the Federal Confidentiality of Alcohol and Drug Abuse Patient Records regulations: The Federal rules restrict any use of the information to criminally investigate or prosecute any alcohol or drug abuse patient.[facility] [place] the event this information is protected by the Federal Confidentiality of Alcohol and Drug Abuse Patient Records regulations: The Federal rules restrict any use of the information to criminally investigate or prosecute any alcohol or drug abuse patient.[facility] [place] the event this information is protected by the Federal Confidentiality of Alcohol and Drug Abuse Patient Records regulations: The Federal rules restrict any use of the information to criminally investigate or prosecute any alcohol or drug abuse patient.[facility] [place] the event this information is protected by the Federal Confidentiality of Alcohol and Drug Abuse Patient Records regulations: The Federal rules restrict any use of the information to criminally investigate or prosecute any alcohol or drug abuse patient.[facility] Jackson[facility] the event this information is protected by the Federal Confidentiality of Alcohol and Drug Abuse Patient Records regulations: The Federal rules restrict any use of the information to criminally investigate or prosecute any alcohol or drug abuse patient.[facility] [place] Reason for Visit (unrecogniz ed section and content) Reason Comments Lab Orders Reason Comments Rectal Cancer Reason Comments Appointment Reason Comments Established Patient Reason Comments Appointment Confirmation Reason Comments Established Patient Reason Comments Care Coordination Hypercalcemia Reason Comments Patient Update Specialty Diagnoses / Procedures Referred By Contac t Referred To Contact Diagnoses Malignant neoplasm of rectum (HCC) Malignant neoplasm of colon, unspecified part of colon (HCC) Hypercalcemia Chronic renal failure, stage 3b (HCC) Procedures DENOSUMAB INJECTION Arnol Daugherty MD [address] [place] [address] [place] [address] Sebastian Treat Marko [address] [place] [address] Referral ID Status Reason Start Date Expiration Date V isits Requested Visits Authorized [id number] Authorized 03/23/2022 09/23/2022 99 99 Reason Comments Chronic Kidney Disease Reason Comments Results Reason Comments Radiology US Reason Onset Date Comments Refill Request 05/18/2022 Reason Comments New Patient Specialty Diagnoses / Procedures Referred By Contac t Referred To Contact Endocrinology Diagnoses Hypercalcemia Procedures CONSULT TO ENDOCRINOLOGY OFFICE/OUTPATIENT NEW HIGH MDM 60-74 MINUTES Arnol Daugherty MD [address] [place] [address] [place] [address] Referral ID Status Reason Start Date Expiration Date V isits Requested Visits Authorized [id number] Closed PCP Requested Referral 04/03/2022 04/03/2023 1 1 Reason Comments Follow Up Reason Comments Orders Referral Request Reason Comments renal failure Reason Comments Referral Information Kidney Medicine Reason Comments Follow Up Reason Comments Refill Request Reason Comments Colon Cancer Reason Comments Radiology CT Specialty Diagnoses / Procedures Referred By Contac t Referred To Contact CT IMAGING Diagnoses Cervicalgia Procedures CT NECK SOFT TISSUE WO IVCON CT SOFT TISSUE NECK W/O CONTRAST MATERIAL Ace Savage, 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.[address] [place] [address] [place] [address] Referral ID Status Reason Start Date Expiration Date V isits Requested Visits Authorized [id number] Closed Auto-Generate d Referral 07/17/2022 08/16/2023 [address] Specialty Diagnoses / Procedures Referred By Contac t Referred To Contact CT IMAGING Diagnoses Lung nodules Procedures CT CHEST W IVCON DIAGNOSTIC COMPUTED TOMOGRAPHY THORAX W/CONTRAST Arnol Daugherty MD [address] [place] [address] [place] [address] [place] [address] Referral ID Status Reason Start Date Expiration Date V isits Requested Visits Authorized [id number] Closed Auto-Generated Referral Financial Clearance Not Required 07/29/2022 02/25/2023 1 1 Reason Comments Medicare Annual Wellness Visit Subsequen t Medicare wellness Reason Comments Med Refill Reason Comments Rash Care Teams (unrecognized sec tion and content) Team Status: Active Member Role Status Dates Logan Gomez MD Primary Care Provider Active Team Status: Inactive Member Role Status Dates Logan Gomez MD Primary Care Provider Active S tart: February 28, 2025 End: February 28, 2025 MIGUELANGEL Ravi RN ANTENNA DESIGN ENGINEER-C Attending Provider Active Start: February 28 End: February 28, 2025 Team Status: Active Member Role Status Dates Logan Gomez MD Primary Care Provider Active Team Status: Active Member Role Status Dates Logan Gomez MD Primary Care Provider Active S tart: September 25, 2024 Olaf Bowen MD Attending Provider Active Star t: September 25, 2024 Team Status: Inactive Member Role Status Dates Logan Gomez MD Primary Care Provider Active S tart: October 01, 2024 End: October 01, 2024 Olaf Bowen MD Attending Provider Active Star t: October 01, 2024 End: October 01, 2024 Press And Blow Machine Tender Relationship Specialty Start Date End Date TanyarhiannonLogan rodriguez Usha [address] [place] [address] PCP - General Family Practice 12/15/20 Press And Blow Machine Tender Relationship Specialty Start Date End Date Tanyarhiannonanamaria Logan Usha [address] [place] [address] PCP - General Family Practice 12/15/20 Press And Blow Machine Tender Relationship Specialty Start Date End Date Evangelista Logan Usha [address] [place] [address] PCP - General Family Practice 12/15/20 Press And Blow Machine Tender Relationship Specialty Start Date End Date Logan Gomez [address] [place] [address] PCP - General Family Practice 12/15/20 Press And Blow Machine Tender Relationship Specialty Start Date End Date Logan Gomez [address] [place] [address] PCP - General Family Practice 12/15/20 Press And Blow Machine Tender Relationship Specialty Start Date End Date Logan Gomez [address] [place] [address] PCP - General Family Practice 12/15/20 Press And Blow Machine Tender Relationship Specialty Start Date End Date Logan Gomez [address] [place] [address] PCP - General Family Practice 12/15/20 Press And Blow Machine Tender Relationship Specialty Start Date End Date Logan Gomez [address] [place] [address] PCP - General Family Practice 12/15/20 Press And Blow Machine Tender Relationship Specialty Start Date End Date Logan Gomez [address] [place] [address] PCP - General Family Practice 12/15/20 Press And Blow Machine Tender Relationship Specialty Start Date End Date Logan Gomez [address] [place] [address] PCP - General Family Practice 12/15/20 Press And Blow Machine Tender Relationship Specialty Start Date End Date Logan Gomez [address] [place] [address] PCP - General Family Practice 12/15/20 Press And Blow Machine Tender Relationship Specialty Start Date End Date Logan Gomez [address] [place] [address] PCP - General Family Practice 12/15/20 Press And Blow Machine Tender Relationship Specialty Start Date End Date Logan Gomez [address] [place] [address] PCP - General Family Practice 12/15/20 Press And Blow Machine Tender Relationship Specialty Start Date End Date Logan Gomez [address] [place] [address] PCP - General Family Practice 12/15/20 Press And Blow Machine Tender Relationship Specialty Start Date End Date Logan Gomez [address] [place] [address] PCP - General Family Medicine 12/15/20 Press And Blow Machine Tender Relationship Specialty Start Date End Date Logan Gomez [address] [place] [address] PCP - General Family Medicine 12/15/20 Press And Blow Machine Tender Relationship Specialty Start Date End Date Logan Gomez [address] [place] [address] PCP - General Family Medicine 12/15/20 Press And Blow Machine Tender Relationship Specialty Start Date End Date Logan Gomez [address] [place] [address] PCP - General Family Medicine 12/15/20 Press And Blow Machine Tender Relationship Specialty Start Date End Date Logan Gomez [address] [place] [address] PCP - General Family Medicine 12/15/20 Press And Blow Machine Tender Relationship Specialty Start Date End Date Logan Gomez [address] [place] [address] PCP - General Family Medicine 12/15/20 Press And Blow Machine Tender Relationship Specialty Start Date End Date Logan Gomez [address] [place] [address] PCP - General Family Medicine 12/15/20 Press And Blow Machine Tender Relationship Specialty Start Date End Date EvangelistaLogan [address] [place] [address] PCP - General Family Medicine 12/15/20 Press And Blow Machine Tender Relationship Specialty Start Date End Date Evangelista Logan Kerr [address] [place] [address] PCP - General Family Medicine 12/15/20 Press And Blow Machine Tender Relationship Specialty Start Date End Date Logan Gomez [address] [place] [address] PCP - General Family Medicine 12/15/20 Press And Blow Machine Tender Relationship Specialty Start Date End Date Logan Gomez [address] [place] [address] PCP - General Family Medicine 12/15/20 Press And Blow Machine Tender Relationship Specialty Start Date End Date Evangelista Logan Kerr [address] [place] [address] PCP - General Family Medicine 12/15/20 Press And Blow Machine Tender Relationship Specialty Start Date End Date Logan Gomez [address] [place] [address] PCP - General Family Medicine 12/15/20 Press And Blow Machine Tender Relationship Specialty Start Date End Date Logan Gomez [address] [place] [address] PCP - General Family Medicine 12/15/20 Team Status: Inactive Member Role Status Dates Alan Adams DO Attending Provider Active Logan Gomez MD Primary Care Provider Active Press And Blow Machine Tender Relationship Specialty Start Date End Date Logan Gomez [address] [place] [address] PCP - General Family Medicine 12/15/20 Team Status: Inactive Member Role Status Dates Logan Gomez MD Primary Care Provider Active S tart: February 13, 2024 End: February 13, 2024 Hayley Sorto APRN Attending Provider Active Start: February 13, 2024 End: February 13, 2024 Team Status: Inactive Member Role Status Dates Logan Gomez MD Primary Care Provider Active S tart: February 15, 2024 End: February 15, 2024 Jackeline Lincoln APRN Attending Provider Active S tart: February 15, 2024 End: February 15, 2024 Team Status: Active Member Role Status Dates Logan Gomez MD Primary Care Provider Active S tart: March 10, 2024 Olaf Bowen MD Attending Provider Active Star t: March 10, 2024 Team Status: Inactive Member Role Status Dates Logan Gomez MD Primary Care Provider Active S tart: March 25, 2024 End: March 25, 2024 Olaf Bowen MD Attending Provider Active Star t: March 25, 2024 End: March 25, 2024 Press And Blow Machine Tender Relationship Specialty Start Date End Date Logan Gomez [address] [place] [address] PCP - General Family Medicine 12/15/20 Press And Blow Machine Tender Relationship Specialty Start Date End Date Logan Gomez [address] [place] [address] PCP - General Family Medicine 12/15/20 Press And Blow Machine Tender Relationship Specialty Start Date End Date Logan Gomez [address] [place] [address] PCP - General Family Medicine 12/15/20 Press And Blow Machine Tender Relationship Specialty Start Date End Date Logan Gomez MD [address] [place] [address] PCP - General Family Medicine 02/26/24 Press And Blow Machine Tender Relationship Specialty Start Date End Date Logan Gomez MD [address] [place] [address] PCP - General Family Medicine 02/26/24 Press And Blow Machine Tender Relationship Specialty Start Date End Date Logan Gomez MD [address] [place] [address] PCP - General Family Medicine 12/15/20 Press And Blow Machine Tender Relationship Specialty Start Date End Date Logan Gomez MD [address] [place] [address] PCP - General Family Medicine 02/26/24 Press And Blow Machine Tender Relationship Specialty Start Date End Date Logan Gomez MD [address] [place] [address] PCP - General Family Medicine 12/15/20 Press And Blow Machine Tender Relationship Specialty Start Date End Date Logan Gomez MD [address] [place] [address] PCP - General Family Medicine 12/15/20 Press And Blow Machine Tender Relationship Specialty Start Date End Date Logan Gomez MD [address] [place] [address] PCP - General Family Medicine 02/26/24 Press And Blow Machine Tender Relationship Specialty Start Date End Date Logan Gomez MD [address] [place] [address] PCP - General Family Medicine 12/15/20 Press And Blow Machine Tender Relationship Specialty Start Date End Date Logan Gomez MD [address] [place] [address] PCP - General Family Medicine 02/26/24 Team Status: Inactive Member Role Status Dates Logan Gomez MD Primary Care Provider Active S tart: February 28, 2025 End: February 28, 2025 MIGUELANGEL Ravi RN ANTENNA DESIGN ENGINEER-C Attending Provider Active Start: February 28 End: February 28, 2025 Goals (unrecognized section and content) Goals may be documented in a n alternate section FOR RECORDS PERTAINING TO PATIENTS WHO ARE OR HAVE BEEN ENROLLED IN A CHEMICAL DEPENDENCY/SUBSTANCEABUSE PROGRAM, SOME INFORMATION MAY BE OMITTED. This clinical summary was aggregated from multiple sources. Caution should be exercised in using it in the provision of clinical care. This summary normalizes information from multiple sources, and as a consequence, information in this document may materially change the coding, format and clinical context of patient data. In addition, data may be omitted in some cases. CLINICAL DECISIONS SHOULD BE BASED ON THE PRIMARY CLINICAL RECORDS. [employer] provides no warranty or guarantee of the accuracy or completeness of information in this document.
[2025-03-06] MEDS: TRAMADOL HCL 50 MG TABLET PO (09:33)
[2025-03-06] MEDS: ORPHENADRINE 60 MG/2 ML VIAL IM (09:33)
[2025-03-06] MEDS: METHYLPREDNISOLONE SOD SUCC PF 40 MG/ML VIAL IM (09:34)
[2025-03-06 10:00] VITALS: BP 145/87; PULSE 87; O2SAT 98
--- NOTE | 2025-03-06 10:29 | ED_ITS ---
HPI HPI - Back Pain/Injury General Chief Complaint: Back Pain/Injury Stated Complaint: SCIATIC PAIN Time Seen by Provider: 03/06/25 09:08 Source: patient and family Mode of arrival: walk-in Limitations: no limitations History of Present Illness HPI Narrative: The patient is 80-year-old female is coming to the ER to be evaluated for sciatica pain, the patient was evaluated in urgent care almost a week ago when she was diagnosed with possible sciatica and she was started on prednisone and Flexeril, which she finished last Sunday The patient was feeling much better but apparently yesterday she was active and she started having pain in her left hip, according to the patient the pain is mostly localized only to the left hip and she is leaning only to the right side because when she sits on the left side she have more pain The patient is not having any tingling or numbness sensation down her legs she denies any weakness in her legs at all limited pain to the left hip No history of fall or trauma Related Data Home Medications ?Medication ?Instructions ?Recorded ?Confirmed amlodipine 5 mg tablet 5 mg PO BID 04/18/23 5 carvedilol 6.25 mg tablet 6.25 mg PO Q12H 03/06/25 cyclobenzaprine 5 mg tablet 5 mg PO Q12H 03/06/2502/22 Previous Rx's ?Medication ?Instructions ?Recorded acetaminophen 650 mg 650 mg PO Q8H PRN pain #20 t abs 04/18/23 tablet,extended release (Tylenol 8 Hour) orphenadrine citrate 100 mg 100 mg PO BID PRN muscle s pasm #20 03/06/25 tablet,extended release tabs prednisone 20 mg tablet 40 mg (2 x 20 mg) PO DAILY 5 days 03/06/25 #10 tabs tramadol 50 mg tablet 50 mg PO Q12H PRN pain 3 day s #6 03/06/25 tabs Allergies Allergy/AdvReac Type Severity Reaction Status Date / Time Penicillins Allergy Mild possible Verified 03/06/25 09:08 guillain barre tetracycline Allergy Mild Rash Verified 03/06/25 09:08 Opioid HPI Opioid Management Most Recent Opioid Data: 2 Last Pain Scale 8 Today, 09:33 Last MAR Pain Assessment Today, 09:33 Review of Systems ROS Status of ROS 10 or more systems reviewed and unremark able except as noted in history and below [facility] Social History Smoking status: Never smoker Little interest or pleasure in doing things: not at all Feeling down, depressed, or hopeless: not at all Exam Narrative Exam Narrative: Nurses notes and vital signs reviewed and patient is not hypoxic. General: Well-appearing and in no apparent distress. Skin: Warm, dry, no pallor noted. No rash. Head: Normocephalic, atraumatic. Neck: Supple, non-tender. Eye: Pupils are equal, round and EOMI. No scleral icterus. Ears, Nose, Mouth, and Throat: TM are clear, no nasal mucosal hypertrophy. Oral mucosa is moist, no posterior oropharynx erythema, uvula is mid-line Cardiovascular: Regular Rate and Rhythm without murmur, gallop or rub. Respiratory: No accessory muscle use or respiratory distress. Lungs are clear to auscultation, no wheezing, rales or rhonchi Chest Wall: no tenderness Back: No midline thoracic or lumbar vertebral tenderness. No CVA tenderness Musculoskeletal: normal ROM, no calf or popliteal tenderness, no lower extremity edema/swelling, patient only have a limited pain only to palpation to the left hip. GI: Abdomen is soft, non-distended. Normal bowel sounds. No masses appreciated. No tenderness to palpation. No rebound, guarding, or rigidity noted. Neurological: A&O x4. No cranial nerve dysfunction observed. Constitutional Vital Signs, click to edit/add: Last Vital Signs Temp 97.6 F 03/06/25 09:04 Pulse 87 03/06/25 10:00 Resp 16 03/06/25 10:00 BP 145/87 H 03/06/25 10:00 Pulse Ox 98 03/06/25 10:00 O2 Del Method Room Air 03/06/25 10:00 Course Vital Signs Vital signs: Vital Signs Temperature 97.6 F 03/06/25 09:04 Pulse Rate 69 03/06/25 09:04 Respiratory Rate 16 03/06/25 09:04 Blood Pressure 172/68 H 03/06/25 09:04 Pulse Oximetry 98 03/06/25 09:04 Oxygen Delivery Method Room Air 03/06/25 09:04 Temperature 97.6 F 03/06/25 09:04 Pulse Rate 87 03/06/25 10:00 Respiratory Rate 16 03/06/25 10:00 Blood Pressure 145/87 H 03/06/25 10:00 Pulse Oximetry 98 03/06/25 10:00 Oxygen Delivery Method Room Air 03/06/25 10:00 MDM - Back Pain/Injury MDM Narrative Medical decision making narrative: The patient pain is mostly secondary to bursitis of the left hip especially that she is just leaning on the right side because sitting on the left side close pain The patient was started on prednisone for the next 5 days in addition to Norflex and tramadol for pain and she was referred to orthopedic as outpatient The patient is to follow up with primary care physician in next 2-3 days or to return to the emergency department should any of the signs or symptoms worsen or new symptoms develop. The patient agrees with the following Diagnosis and Treatment plan and the patient will be discharged home. Discharge Plan Discharge Chief Complaint: Back Pain/Injury Clinical Impression: Bursitis of hip Patient Disposition: Home, Self-Care Time of Disposition Decision: :29 Condition: Good Mode of Transportation: Private Vehicle Prescriptions / Home Meds: New orphenadrine citrate 100 mg tablet extended release 100 mg PO BID PRN (Reason: muscle spasm) Qty: 20 0RF tramadol 50 mg tablet 50 mg PO Q12H PRN (Reason: pain) 3 Days Qty: 6 0RF prednisone 20 mg tablet 40 mg PO DAILY 5 Days Qty: 10 0RF Discontinued prednisone 20 mg tablet 20 mg PO Q12H No Action amlodipine 5 mg tablet 5 mg PO BID acetaminophen [Tylenol 8 Hour] 650 mg tablet extended release 650 mg PO Q8H PRN (Reason: pain) Qty: 20 0RF carvedilol 6.25 mg tablet 6.25 mg PO Q12H cyclobenzaprine 5 mg tablet 5 mg PO Q12H Print Language: Jordanian Instructions: Hip Bursitis (ED) Referrals: Dr Murrieta [Other] - 1 week Logan Naidu MD [Primary Care Provider, Family Practice] - 1 week Discharge Date/Time: 03/06/25 10:00
== END 2025-03-06 10:00 | disposition home or self-care (01) ==
PROVIDERS: Emergency Provider Emergency Medicine; PCP Family Medicine
DX: M70.72 Other bursitis of hip, left hip (principal); M54.30 Sciatica, unspecified side; M25.552 Pain in left hip
CPT/HCPCS: 96372; 99284; J2360; J2919

== ENCOUNTER 2025-03-22 14:47 | Emergency (ER) | payer MEDICARE, SELFPAY ==
[2025-03-22 14:51] VITALS: BP 157/67; PULSE 63; TEMP 36.6; O2SAT 96; BMI 32.1
--- OUTSIDE RECORDS SUMMARY | 2025-03-22 14:56 | XMS_ITS | CCD ---
Author Organization [facility]iniSyne Care Team Providers Care Crystal Grinder Name Role Phone NEELIMA PERKINS Attending Unavailable [...] Care Provider Logan Gomez Primary Care Provider Donna Corey Unavailable DO Alan Adams Attending Provider MD Logan Gomez Primary Care Provider Olaf Bowen Unavailable Alan Adams Attending Unavailable Alan Adams Admitting Unavailable Logan Gomez Primary Care Unavailable Logan Gomez Primary Care Provider [phone] Logan Gomez MD Primary Care Provider Logan Gomez MD Primary Care Provider [phone] ARNOL DAUGHERTY Referring Unavailable LOGAN GOMEZ Primary [...] Drug allergy (disorder) 3 Unknown Reaction [facility] Repository (7 sources) Tetracycline Drug Allergy 4 anaphylaxis [facility] Repository (1 source) cat dander Drug allergy (disorder) [facility] Repository (20 sources) influenza A virus (H1N1) antigen / influenza A virus (H3N2) antigen / influenza B virus antigen; Translations: [FLU VAC 2019 [id number](PF) ] Drug Allergy 9 Other: See Comments [facility] (6 sources) Penicillins Drug Allergy 3 Unknown [facility] (20 sources) Pneumococcal vaccine; Translations: [PNEUMOCOCCAL VACCINE] Drug Allergy 9 Other: See Comments [facility] (14 sources) Tetracycline (class of antibiotic); Translations: [TETRACYCLINES] Drug Allergy 3 Rash [facility] (20 sources) Dtap-Ipv Component 1 Of 2 (Pf); Translations: [DTAP-IPV COMPONENT 1 OF 2 (PF)] Drug Allergy 9 Other: See Comments [facility] (20 sources) Penicillins Drug Allergy 3 Unknown [facility] (20 sources) Tetracycline (class of antibiotic) Drug Allergy 3 Rash [facility] (8 sources) Penicillin G Benzathine Drug allergy 4 unknown [facility] (11 sources) Tetracycline Drug Allergy 4 anaphylaxis, Hives [facility] (1 source) Penicillins Drug allergy (disorder) 3 [facility] Repository (1 source) Tetracyclines Drug allergy (disorder) 3 [facility] Repository (9 sources) Penicillins Drug Allergy 3 Unknown [facility] (9 sources) Cat Hair Extract Allergy to substance 3 Unknown [facility] Healthcare Work Phone: (9 sources) Pneumococcal Vaccines Drug Allergy 9 Unknown [facility] Healthcare (2 sources) Haemophilus influenzae type b Drug Allergy 5 Other [facility] Healthcare Medications Current Medications Medication [...] Drug Class(es) Dates Sig (Normalized) Sig (Original) [id number] 200 actuat albuterol 0.09 mg/actuat metered dose [...] 1:55pm Start: 07-06-2021 take 1 capsule by [facility] every eight hours Cephalexin 500 MG 1 [...] 08-26-2013 Episodic Other aftercare (1 source) 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; Translations: [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] Onset: 1 Episodic Other aftercare (19 sources) Drug therapy finding; Translations: [Other senior living (current) drug therapy] Onset: 4 08-05-2023 Episodic [...] Name Value Interpretation Reference Range Facility 25(OH)D3 [facility] 2024 25-hydroxyvitamin D3 [Mass/Vol] 40.3 ng/mL Normal 31.0-80.0 [facility] Comment on above: Order Comment: Speci men Type: BLOOD SPECIMEN Ordering Facility: [facility] Nephrology Address: [address] [place] [address] [place] [address] Result Comment: Clas sification of 25 [place] Vitamin D status: Deficiency/Insufficiency: < or = 30 ng/ml. Sufficiency/Optimal Levels: 31-80 ng/mL Toxicity: > 100 ng/mL. Test performed by chemiluminescent immunoassay. Performed By: #### 1 989-3 #### [facility] [place] [id number] [address] [place] [address] [place] CBC panel Auto (Bld)on 09-25 Erythrocyte distribution width (RBC) [Ratio] 13.3 % Normal 11.5-15.0 [facility] Comment on above: Order Comment: Speci men Type: URINE SPECIMEN Ordering Facility: [facility] Nephrology Address: [facility] [place] [id number] Performed By: #### 2 4356-8 #### [facility] [place] [id number] [address] [place] [address] [place] Hematocrit (Bld) [Volume fraction] 35.5 % Low 36.0-46.0 [facility] Comment on above: Order Comment: Speci men Type: URINE SPECIMEN Ordering Facility: [facility] Nephrology Address: [place] [address] Performed By: #### 2 4356-8 #### [facility] [place] [id number] [address] [place] [address] [place] Hemoglobin (Bld) [Mass/Vol] 11.9 g/dL Normal 11.5-15.5 [facility] Comment on above: Order Comment: Speci men Type: URINE SPECIMEN Ordering Facility: [facility] Nephrology Address: [place] [address] Performed By: #### 2 4356-8 #### [facility] [place] [id number] [address] [place] [address] [place] MCH (RBC) [Entitic mass] 30.9 pg Normal 26.0-34.0 [facility] Comment on above: Order Comment: Speci men Type: URINE SPECIMEN Ordering Facility: [facility] Nephrology Address: [place] [address] Performed By: #### 2 4356-8 #### [facility] CLIA [id number] [address] [place] [address] [place] MCHC (RBC) [Mass/Vol] 33.5 g/dL Normal 30.5-36.0 [facility] Comment on above: Order Comment: Speci men Type: URINE SPECIMEN Ordering Facility: [facility] Nephrology Address: [place] [address] Performed By: #### 2 4356-8 #### [facility] CLIA [id number] [address] [place] [address] [place] MCV (RBC) [Entitic vol] 92.2 fL Normal 80.0-100.0 [facility] Comment on above: Order Comment: Speci men Type: URINE SPECIMEN Ordering Facility: [facility] Nephrology Address: [place] [address] Performed By: #### 2 4356-8 #### [facility] CLIA [id number] [address] [place] [address] [place] Nucleated RBC (Bld) [#/Vol] 10*3/uL Normal <0.01 [facility] Comment on above: Order Comment: Speci men Type: URINE SPECIMEN Ordering Facility: [facility] Nephrology Address: [place] [address] Performed By: #### 2 4356-8 #### [facility] CLIA [id number] [address] [place] [address] [place] Platelet mean volume (Bld) [Entitic vol] 10.1 fL Normal 9.0-12.7 [facility] Comment on above: Order Comment: Speci men Type: URINE SPECIMEN Ordering Facility: [facility] Nephrology Address: [place] [address] Performed By: #### 2 4356-8 #### [facility] CLIA [id number] [address] [place] [address] [place] Platelets (Bld) [#/Vol] 319 10*3/uL Normal 150-400 [facility] Comment on above: Order Comment: Speci men Type: URINE SPECIMEN Ordering Facility: [facility] Nephrology Address: [address] [place] [address] Performed By: #### 2 4356-8 #### [facility] CLIA [id number] [address] [place] [address] [place] RBC (Bld) [#/Vol] 3.85 10*6/uL Low 3.90-5.20 [facility] Comment on above: Order Comment: Speci men Type: URINE SPECIMEN Ordering Facility: [facility] Nephrology Address: [address] [place] [address] Performed By: #### 2 4356-8 #### [facility] CLIA [id number] [address] [place] [address] [place] WBC (Bld) [#/Vol] 8.89 10*3/uL Normal 3.70-11.00 [facility] Comment on above: Order Comment: Speci men Type: URINE SPECIMEN Ordering Facility: [facility] Nephrology Address: [address] [place] [address] Performed By: #### 2 4356-8 #### [facility] CLIA [id number] [address] [place] [address] [place] [facility] CBC PNL BLD AUTOon 09-25 [facility] NRBC # BLD AUTO <0.01 NINF [facility] PLATELET # BLD AUTO 319 [facility] PMV BLD AUTO 10.1 fL 9.0 - 12.7 fL [facility] WBC # BLD AUTO 8.89 [facility] Erythrocyte distribution width (RBC) [Ratio] 13.3 % 11.5 - 15.0 % [facility] Hematocrit (Bld) [Volume fraction] 35.5 % Low 36.0 - 46.0 % [facility] Hemoglobin (Bld) [Mass/Vol] 11.9 g/dL 11.5 - 15.5 g/dL [facility] Interpretation and review of laboratory results Abnormal [facility] MCH (RBC) [Entitic mass] 30.9 pg 26.0 - 34.0 pg [facility] MCHC (RBC) [Mass/Vol] 33.5 g/dL 30.5 - 36.0 g/dL [facility] MCV (RBC) [Entitic vol] 92.2 fL 80.0 - 100.0 fL [facility] RBC (Bld) [#/Vol] 3.85 10*6/uL Low 3.90 - 5.2 0 m/uL [facility] Specimen Type: BLOOD SPECIMEN Ordering Facility: [facility] Nephrology Address: [facility] [address] [place] [address] Original Ordering Provider: OLAF LIMA [facility] Erythrocyte distribution wid th Auto (RBC) [Ratio]on 09-25-2024 Erythrocyte distribution width (RBC) [Ratio] Erythrocyte distribution width [Ratio] by Automated count 11.5-15.0 [facility] Hematocrit Auto (Bld) [Volum e fraction]on 09-25-2024 Hematocrit (Bld) [Volume fraction] Hematocrit [Volume Fraction] of Blood by Automated count Low 36.0-46.0 [facility] Hemoglobin [Mass/volume] in Bloodon 09-25-2024 Hemoglobin (Bld) [Mass/Vol] Hemoglobin [Mass/volume] in Blood 11.5-15.5 [facility] Laboratory - Chemistry and C hemistry - challengeon 09-25-2024 Bilirubin Ql (U) Negative Negative [facility] Glucose (U) [Mass/Vol] Negative Negative [facility] Ketones Ql (U) Negative Negative [facility] pH (U) 6.0 [pH] <8.5 [facility] Specific gravity (U) [Rel density] 1.007 1.005-1.030 [facility] Albumin [Mass/Vol] 4.6 g/dL 3.9-4.9 [facility] Calcium [Mass/Vol] 11.2 mg/dL High 8.5-10.2 [facility] Chloride [Moles/Vol] 98 mmol/L 98-107 [facility] CO2 [Moles/Vol] 23 mmol/L 22-30 [facility] Creatinine [Mass/Vol] 1.25 mg/dL High 0.58-0.96 [facility] Glucose [Mass/Vol] 93 mg/dL 74-99 [facility] Comment on above: The [place] Diabete s Association (ADA) provides guidance for [...] Standards of Medical Care in Diabetes 2016, [place] Diabetes Association. Diabetes Care. 2016.39(Suppl 1). Magnesium [Mass/Vol] 1.9 mg/dL 1.7-2.3 [facility] Potassium [Moles/Vol] 4.2 mmol/L 3.7-5.1 [facility] Sodium [Moles/Vol] 133 mmol/L Low 136-144 [facility] Urate [Mass/Vol] 9.2 mg/dL High 2.5-6.6 [facility] Urea nitrogen [Mass/Vol] 32 mg/dL High 7-21 [facility] - Specimen inform ationon 09-25-2024 Appearance (U) Clear Clear [facility] Color (U) Yellow Yellow [facility] Laboratory - Urinalysison Bacteria LM.HPF (Urine sed) [#/Area] Negative Negative [facility] Hyaline casts LM Ql (Urine sed) 0 /LPF 0 /LPF [facility] Leukocyte esterase Test strip Ql (U) Negative Negative [facility] Nitrite Ql (U) Negative Negative [facility] Protein (U) [Mass/Vol] 11 mg/dL 0-20 [facility] Protein Ql (U) Negative Negative [facility] Leukocytes [#/volume] correc gail for nucleated erythrocytes in Blood by Automated counon 09-25-2024 WBC corrected for nucl RBC Auto (Bld) [#/Vol] Leukocytes [#/volume] corrected for nucleated erythrocytes in Blood by Automated coun 3.70-11.00 [facility] MCH Auto (RBC) [Entitic mass ]on 09-25-2024 MCH (RBC) [Entitic mass] MCH [Entitic mass] by Automated count 26.0-34.0 [facility] MCHC Auto (RBC) [Mass/Vol]on 09-25-2024 MCHC (RBC) [Mass/Vol] MCHC [Mass/volume] by Automated count 30.5-36.0 [facility] MCV Auto (RBC) [Entitic vol] on 09-25-2024 MCV (RBC) [Entitic vol] MCV [Entitic volume] by Automated count 80.0-100.0 [facility] Magnesium SerPl-mCncon 09-25 Magnesium [Mass/Vol] 1.9 mg/dL Normal 1.7-2.3 [facility] Comment on above: Order Comment: Speci men Type: BLOOD SPECIMEN Ordering Facility: [facility] Nephrology Address: [address] [place], [place] [address] [address] Performed By: #### 1 989-3 #### [facility] CLIA [id number] [address] [place] [address] [place] No Panel Informationon 09-25 Urine Occult Blood Negative Negative [facility] Urine RBC 0-2 /HPF 0-2 /HPF [facility] Urine Squamous Epithelial Cells None Seen [HPF] [facility] Urine Urobilinogen 0.2 EU/dL 0.2-1.0 EU/dL [facility] Urine WBC 0-5 /HPF 0-5 /HPF [facility] Estimated GFR (CKD-EPI) 44 mL/min/1.73m??? Low >=60 [facility] Comment on above: Estimated Glomerular [...] GFR. Parathyroid Hormone (Intact) 84 pg/mL High [facility] Phosphorus Level 3.6 mg/dL 2.7-4.8 [facility] Nucleated RBC Auto (Bld) [#/ Vol]on 09-25-2024 Nucleated RBC (Bld) [#/Vol] Nucleated erythrocytes [#/volume] in Blood by Automated count <0.01 [facility] PTH-Intact SerPl-mCncon Parathyrin.intact [Mass/Vol] 84 pg/mL High [facility] Comment on above: Order Comment: Speci men Type: URINE SPECIMEN Ordering Facility: [facility] Nephrology Address: [facility] [place] [address] Performed By: #### 2 4356-8 #### [facility] CLIA [id number] [address] [place] [address] [place] Platelet mean volume Auto (B ld) [Entitic vol]on 09-25-2024 Platelet mean volume (Bld) [Entitic vol] Platelet mean volume [Entitic volume] in Blood by Automated count 9.0-12.7 [facility] Platelets Auto (Bld) [#/Vol] on 09-25-2024 Platelets (Bld) [#/Vol] Platelets [#/volume] in Blood by Automated count 150-400 [facility] Prot Ur-mCncon 09-25-2024 Protein (U) [Mass/Vol] 11 mg/dL Normal 0-20 [facility] Comment on above: Order Comment: Speci men Type: URINE SPECIMEN Ordering Facility: [facility] Nephrology Address: [facility] [place] [address] Performed By: #### 2 888-6 #### [facility] CLIA [id number] [address] [address] [place] RBC Auto (Bld) [#/Vol]on RBC (Bld) [#/Vol] Erythrocytes [#/volume] in Blood by Automated count Low 3.90-5.20 [facility] Renal function 2000 panelon 09-25-2024 Albumin [Mass/Vol] 4.6 g/dL Normal 3.9-4.9 [facility] Comment on above: Order Comment: Speci men Type: BLOOD SPECIMEN Ordering Facility: [facility] [place] [address] Performed By: #### 1 989-3 #### [facility] CLIA [id number] [address] [place] [address] [place] Anion gap [Moles/Vol] 12 mmol/L Normal 8-15 [facility] Comment on above: Order Comment: Speci men Type: BLOOD SPECIMEN Ordering Facility: [facility]phrology [facility] [place] [address] Performed By: #### 1 989-3 #### [facility] CLIA [id number] [address] [place] [address] [place] Calcium [Mass/Vol] 11.2 mg/dL High 8.5-10.2 [facility] Comment on above: Order Comment: Speci men Type: BLOOD SPECIMEN Ordering Facility: [facility] Nephrology Address: [place] [address] Performed By: #### 1 989-3 #### [facility] CLIA [id number] [address] [place] [id number] [place] Chloride [Moles/Vol] 98 mmol/L Normal 98-107 [facility] Comment on above: Order Comment: Speci men Type: BLOOD SPECIMEN Ordering Facility: [facility] Nephrology Address: [place] [address] Performed By: #### 1 989-3 #### [facility] CLIA [id number] [address] [place] [address] [place] CO2 [Moles/Vol] 23 mmol/L Normal 22-30 [facility] Comment on above: Order Comment: John joseph Type: BLOOD SPECIMEN Ordering Facility: [facility] Nephrology Address: [place] [address] Performed By: #### 1 989-3 #### [facility] CLIA [id number] [address] [place] [address] [place] Creatinine [Mass/Vol] 1.25 mg/dL High 0.58-0.96 [facility] Comment on above: Order Comment: Camillei opal Type: BLOOD SPECIMEN Ordering Facility: [facility] Nephrology Address: [address] [place], [place] [address] [address] Performed By: #### 1 989-3 #### [facility] CLIA [id number] [address] [place] [address] [place] Creatinine and Glomerular filtration rate.predicted panel (S/P/Bld) 44 mL/min/1.73m??? Low >=60 [facility] Comment on above: Order Comment: John joseph Type: BLOOD SPECIMEN Ordering Facility: [facility] Nephrology Address: [address] [place], [place] [address] [address] Result Comment: Regina mated Glomerular Filtration Rate [...] GFR. Performed By: #### 1 989-3 #### [facility] CLIA [id number] [address] [place] [address] [place] Glucose [Mass/Vol] 93 mg/dL Normal 74-99 [facility] Comment on above: Order Comment: John joseph Type: BLOOD SPECIMEN Ordering Facility: [facility] Nephrology Address: [address] [place] [address] Result Comment: The [place] Diabetes Association (ADA) provides guidance for cutoff [...] Standards of Medical Care in Diabetes 2016, [place] Diabetes Association. Diabetes Care. 2016.39(Suppl 1). Performed By: #### 1 989-3 #### [facility] CLIA [id number] [address] [place] [address] [place] Phosphate [Mass/Vol] 3.6 mg/dL Normal 2.7-4.8 [facility] Comment on above: Order Comment: Speci men Type: BLOOD SPECIMEN Ordering Facility: [facility] Nephrology Address: [address] [place] [address] Performed By: #### 1 989-3 #### [facility] CLIA [id number] [address] [place] [address] [place] Potassium [Moles/Vol] 4.2 mmol/L Normal 3.7-5.1 [facility] Comment on above: Order Comment: Speci men Type: BLOOD SPECIMEN Ordering Facility: [facility] Nephrology Address: [address] [place] [address] Performed By: #### 1 989-3 #### [facility] CLIA [id number] [address] [place], [place] [address] [place] Sodium [Moles/Vol] 133 mmol/L Low 136-144 [facility] Comment on above: Order Comment: Speci men Type: BLOOD SPECIMEN Ordering Facility: [facility] Nephrology Address: [address] [place] [address] Performed By: #### 1 989-3 #### [facility] [place] [id number] [address] [place] [address] [place] Urea nitrogen [Mass/Vol] 32 mg/dL High 7-21 [facility] Comment on above: Order Comment: Speci men Type: BLOOD SPECIMEN Ordering Facility: [facility]phrology [facility] [place] [address] Performed By: #### 1 989-3 #### [facility] CLIA [id number] [address] [place] [address] [place] Serum or plasma anion gap de terminationon 09-25-2024 Anion gap [Moles/Vol] Serum or plasma an ion gap determination 8-15 [facility] Serum or plasma calcidiol me asurement (mass/volume)on 09-25-2024 25-hydroxyvitamin D3 [Mass/Vol] Serum or plasma calcidiol measurement (mass/volume) 31.0-80.0 [facility] Comment on above: Classification of 25 [place] Vitamin D status: Deficiency/Insufficiency: < or = 30 ng/ml.Sufficiency/Optimal Levels: 31-80 ng/mLToxicity: > 100 ng/mL. Test performed by chemiluminescent immunoassay. Urate SerPl-mCncon Urate [Mass/Vol] 9.2 mg/dL High 2.5-6.6 [facility] Comment on above: Order Comment: Speci men Type: BLOOD SPECIMEN Ordering Facility: [facility] Nephrology Address: [place] [address] Performed By: #### 1 989-3 #### [facility] [place] [id number] [address] [place], [place] [address] [place] Urinalysis complete panel (U )on 09-25-2024 Bacteria LM.HPF (Urine sed) [#/Area] Negative Normal Negative [facility] Comment on above: Order Comment: Speci men Type: URINE SPECIMEN Ordering Facility: [facility] Nephrology Address: [address] [facility] [place] [address] Performed By: #### 2 4356-8 #### [facility] CLIA [id number] [address] [place] [address] [place] Bilirubin Ql (U) Negative Normal Negative [facility] Comment on above: Order Comment: Speci men Type: URINE SPECIMEN Ordering Facility: [facility] Nephrology Address: [facility] [address] [facility] [place] [id number] Performed By: #### 2 4356-8 #### [facility] CLIA [id number] [address] [place] [address] [place] Clarity (Unsp spec) Clear Normal Clear [facility] Comment on above: Order Comment: Speci men Type: URINE SPECIMEN Ordering Facility: [facility] Nephrology Address: [facility] [place] [address] Performed By: #### 2 4356-8 #### [facility] CLIA [id number] [address] [place] [address] [place] Color (U) Yellow Normal Yellow [facility] Comment on above: Order Comment: Speci men Type: URINE SPECIMEN Ordering Facility: [facility] Nephrology Address: [address] [place] [id number] Performed By: #### 2 4356-8 #### [facility] CLIA [id number] [address] [place] [address] [place] Epithelial cells LM.HPF (Urine sed) [#/Area] None Seen Normal [facility] Comment on above: Order Comment: Speci men Type: URINE SPECIMEN Ordering Facility: [facility]phrology [facility] [place] [id number] Performed By: #### 2 4356-8 #### [facility] CLIA [id number] [address] [place] [address] [place] Glucose Test strip (U) [Mass/Vol] Negative Normal Negative [facility] Comment on above: Order Comment: Speci men Type: URINE SPECIMEN Ordering Facility: [facility] Nephrology Address: [place] [address] Performed By: #### 2 4356-8 #### [facility] CLIA [id number] [address] [place] [address] [place] Hemoglobin Ql (U) Negative Normal Negative [facility] Comment on above: Order Comment: Speci men Type: URINE SPECIMEN Ordering Facility: [facility] [place] [id number] Performed By: #### 2 4356-8 #### [facility] CLIA [id number] [address] [place] [address] [place] Hyaline casts (Urine sed) [#/Area] 0 /[LPF] Normal 0 /LPF [facility] Comment on above: Order Comment: Speci men Type: URINE SPECIMEN Ordering Facility: [facility] [place] [address] Performed By: #### 2 4356-8 #### [facility] CLIA [id number] [address] [place] [address] [place] Ketones Ql (U) Negative Normal Negative [facility] Comment on above: Order Comment: Speci men Type: URINE SPECIMEN Ordering Facility: [facility] [place] [address] Performed By: #### 2 4356-8 #### [facility] CLIA [id number] [address] [place] [address] [place] Leukocyte esterase Test strip Ql (U) Negative Normal Negative [facility] Comment on above: Order Comment: Speci men Type: URINE SPECIMEN Ordering Facility: [facility] [place] [id number] Performed By: #### 2 4356-8 #### [facility] CLIA [id number] [address] [place] [address] [place] Nitrite Ql (U) Negative Normal Negative [facility] Comment on above: Order Comment: Speci men Type: URINE SPECIMEN Ordering Facility: [facility]phrology [facility] [place] [address] Performed By: #### 2 4356-8 #### [facility] CLIA [id number] [address] [place] [address] [place] pH (U) 6.0 [pH] Normal <8.5 [facility] Comment on above: Order Comment: Speci men Type: URINE SPECIMEN Ordering Facility: [facility] Nephrology Address: [facility] [place] [address] Performed By: #### 2 4356-8 #### [facility] CLIA [id number] [address] [place] [address] [place] Protein (U) [Mass/Vol] Negative Normal Negative [facility] Comment on above: Order Comment: Speci men Type: URINE SPECIMEN Ordering Facility: [facility]phrology [facility] [place] [address] Performed By: #### 2 4356-8 #### [facility] IA [id number] [address] [place] [address] [place] RBC LM.HPF (Urine sed) [#/Area] 0-2 /HPF Normal 0-2 /HPF [facility] Comment on above: Order Comment: Speci men Type: URINE SPECIMEN Ordering Facility: [facility] Nephrology Address: [facility] [place] [address] Performed By: #### 2 4356-8 #### [facility] CLIA [id number] [address] [place] [address] [place] Specific gravity (U) [Rel density] 1.007 Normal 1.005-1.030 [facility] Comment on above: Order Comment: Speci men Type: URINE SPECIMEN Ordering Facility: [facility] Nephrology Address: [facility] [place] [address] Performed By: #### 2 4356-8 #### [facility] IA [id number] [address] [place] [address] [place] Urobilinogen Ql (U) 0.2 EU/dL Normal 0.2-1.0 EU/dL [facility] Comment on above: Order Comment: Speci men Type: URINE SPECIMEN Ordering Facility: [facility] Nephrology Address: [facility] [place] [address] Performed By: #### 2 4356-8 #### [facility] CLIA [id number] [address] [place] [address] [place] WBC LM.HPF (Urine sed) [#/Area] 0-5 /HPF Normal 0-5 /HPF [facility] Comment on above: Order Comment: Speci men Type: URINE SPECIMEN Ordering Facility: [facility] Nephrology Address: [facility] [place] [address] Performed By: #### 2 4356-8 #### [facility] IA [id number] [address] [place] [address] [place] CNNURSEon 09-01-2024 CNNURSE Nurse Visit (HEMASA) ALEKSANDER BARGER ([id number]) 1945 F Date Time Provider Department 09/01/24 11:00 AM [place] NURSE SEBASTIAN CASTANO During your visit today, we recorded the following information about you: Temperature Pulse Respiration Blood pressure 97.6 degrees 75/minute 18/minute 168/74 Kamilah Yip MA 09/01/2024 12:22 PM Signed Patient Identification confirmed: yes. Injection given and documented on NOV per provider order. 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 Injection given and documented on NOV per provider order. Loan Elise MA Referring Provider: ARNOL DAUGHERTY [[id number]] Allergies As of Date: 08/05/2024 Noted Allergy Reaction DTAP-IPV COMPONENT 1 OF 2 (PF) 09/08/2019 14 - Other: See Comments Comments: Maria Alejandra Camarillo FLU VAC 2019 [id number](PF) 09/08/2019 14 - Other: See Comments Comments: [...] kidney [N13.30] Hypercalcemia [E83.52] Order(s):TREATMENT PARAMETER-NOT NEEDED [[id number]] Order #: [id number]: 1 BCN NURSING COMMUNICATION [[id number]] Order #: [id number]: 1 STANDING [] cyanocobalamin 1,000 mcg injectionDisp: [...] 07/16/2014 Post-op pain [G89.18] 07/16/2014 DVT prophylaxis [JCC1207] 07/16/2014 Hydronephrosis of left kidney [N13.30] 07/20/2014 [...] Status:Closed by LOAN ELISE on 08/05/24 Normal [facility] CBC W Auto Differential pane l (Bld)on 07-31-2024 Basophils (Bld) [#/Vol] 0.05 10*3/uL Normal <0.11 [facility] Comment on above: Order Comment: Speci men Type: URINE SPECIMEN Ordering Facility: [facility] Nephrology Address: [place] [address] Performed By: #### 2 4356-8 #### [facility] CLIA [id number] [address] [place] [address] [place] Basophils/100 WBC (Bld) 0.6 % Normal [facility] Comment on above: Order Comment: Speci men Type: URINE SPECIMEN Ordering Facility: [facility] Nephrology Address: [place] [id number] Performed By: #### 2 4356-8 #### [facility] CLIA [id number] [address] [place] [address] [place] Differential cell count method Nom (Bld) Auto Normal [facility] Comment on above: Order Comment: Speci men Type: URINE SPECIMEN Ordering Facility: [facility] Nephrology [facility]: [facility] [place] [address] Performed By: #### 2 4356-8 #### [facility] CLIA [id number] [address] [place] [address] [place] Eosinophils (Bld) [#/Vol] 0.35 10*3/uL Normal <0.46 [facility] Comment on above: Order Comment: Speci men Type: URINE SPECIMEN Ordering Facility: [facility] Nephrology Address: [place] [id number] Performed By: #### 2 4356-8 #### [facility] CLIA [id number] [address] [place] [id number] [place] Eosinophils/100 WBC (Bld) 4.2 % Normal [facility] Comment on above: Order Comment: Speci men Type: URINE SPECIMEN Ordering Facility: [facility] Nephrology Address: [place] [phone] Performed By: #### 2 4356-8 #### [facility] CLIA [id number] [address] [place] [id number] [place] Erythrocyte distribution width (RBC) [Ratio] 12.8 % Normal 11.5-15.0 [facility] Comment on above: Order Comment: Speci men Type: URINE SPECIMEN Ordering Facility: [facility] Nephrology Address: [address] [place], [place] [address] [address] Performed By: #### 2 4356-8 #### [facility] CLIA [id number] [address] [place] [address] [place] Hematocrit (Bld) [Volume fraction] 33.7 % Low 36.0-46.0 [facility] Comment on above: Order Comment: Speci men Type: URINE SPECIMEN Ordering Facility: [facility] Nephrology Address: [address] [place], [place] [address] [address] Performed By: #### 2 4356-8 #### [facility] CLIA [id number] [address] [place] [address] [place] Hemoglobin (Bld) [Mass/Vol] 11.4 g/dL Low 11.5-15.5 [facility] Comment on above: Order Comment: Speci men Type: URINE SPECIMEN Ordering Facility: [facility] Nephrology Address: [place] [address] Performed By: #### 2 4356-8 #### [facility] CLIA [id number] [address] [place] [address] [place] Immature granulocytes (Bld) [#/Vol] 0.03 10*3/uL Normal <0.10 [facility] Comment on above: Order Comment: Speci men Type: URINE SPECIMEN Ordering Facility: [facility] Nephrology Address: [address] [place], [place] [address] [address] Performed By: #### 2 4356-8 #### [facility] CLIA [id number] [address] [place] [address] [place] Immature granulocytes/100 WBC (Bld) 0.4 % Normal [facility] Comment on above: Order Comment: Speci men Type: URINE SPECIMEN Ordering Facility: [facility] Nephrology [facility] [place] [address] Performed By: #### 2 4356-8 #### [facility] CLIA [id number] [address] [place] [address] [place] Lymphocytes (Bld) [#/Vol] 1.53 10*3/uL Normal 1.00-4.00 [facility] Comment on above: Order Comment: Speci men Type: URINE SPECIMEN Ordering Facility: [facility] Nephrology Address: [facility] [place] [address] Performed By: #### 2 4356-8 #### [facility] IA [id number] [address] [place] [address] [place] Lymphocytes/100 WBC (Bld) 18.3 % Normal [facility] Comment on above: Order Comment: Speci men Type: URINE SPECIMEN Ordering Facility: [facility] Nephrology [facility]: [facility] [place] [address] Performed By: #### 2 4356-8 #### [facility] IA [id number] [address] [place] [address] [place] MCH (RBC) [Entitic mass] 31.1 pg Normal 26.0-34.0 [facility] Comment on above: Order Comment: Speci men Type: URINE SPECIMEN Ordering Facility: [facility] Nephrology Address: [place] [address] Performed By: #### 2 4356-8 #### [facility] CLIA [id number] [address] [place] [address] [place] MCHC (RBC) [Mass/Vol] 33.8 g/dL Normal 30.5-36.0 [facility] Comment on above: Order Comment: Speci men Type: URINE SPECIMEN Ordering Facility: [facility] Nephrology [facility]: [facility] [place] [address] Performed By: #### 2 4356-8 #### [facility] CLIA [id number] [address] [place] [address] [place] MCV (RBC) [Entitic vol] 91.8 fL Normal 80.0-100.0 [facility] Comment on above: Order Comment: Speci men Type: URINE SPECIMEN Ordering Facility: [facility] Nephrology Address: [address] [place] [address] Performed By: #### 2 4356-8 #### [facility] CLIA [id number] [address] [place] [address] [place] Monocytes (Bld) [#/Vol] 0.70 10*3/uL Normal <0.87 [facility] Comment on above: Order Comment: Speci men Type: URINE SPECIMEN Ordering Facility: [facility] Nephrology Address: [address] [place] [address] Performed By: #### 2 4356-8 #### [facility] CLIA [id number] [address] [place] [address] [place] Monocytes/100 WBC (Bld) 8.4 % Normal [facility] Comment on above: Order Comment: Speci men Type: URINE SPECIMEN Ordering Facility: [facility] Nephrology Address: [address] [place] [address] Performed By: #### 2 4356-8 #### [facility] CLIA [id number] [address] [place] [address] [place] Neutrophils (Bld) [#/Vol] 5.71 10*3/uL Normal 1.45-7.50 [facility] Comment on above: Order Comment: Speci men Type: URINE SPECIMEN Ordering Facility: [facility] Nephrology Address: [address] [place] [address] Performed By: #### 2 4356-8 #### [facility] CLIA [id number] [address] [place] [address] [place] Neutrophils/100 WBC (Bld) 68.1 % Normal [facility] Comment on above: Order Comment: Speci men Type: URINE SPECIMEN Ordering Facility: [facility] Nephrology Address: [facility] [place] [id number] Performed By: #### 2 4356-8 #### [facility] CLIA [id number] [address] [place] [address] [place] Nucleated RBC (Bld) [#/Vol] 10*3/uL Normal <0.01 [facility] Comment on above: Order Comment: Speci men Type: URINE SPECIMEN Ordering Facility: [facility] Nephrology Address: [facility] [place] [address] Performed By: #### 2 4356-8 #### [facility] CLIA [id number] [address] [place] [address] [place] Nucleated RBC/100 WBC (Bld) [Ratio] 0.0 /100 WBC Normal [facility] Comment on above: Order Comment: Speci men Type: URINE SPECIMEN Ordering Facility: [facility] Nephrology Address: [facility] [place] [address] Performed By: #### 2 4356-8 #### [facility] CLIA [id number] [address] [place] [address] [place] Platelet mean volume (Bld) [Entitic vol] 10.1 fL Normal 9.0-12.7 [facility] Comment on above: Order Comment: Speci men Type: URINE SPECIMEN Ordering Facility: [facility] Nephrology Address: [facility] [place] [address] Performed By: #### 2 4356-8 #### [facility] CLIA [id number] [address] [place] [address] [place] Platelets (Bld) [#/Vol] 295 10*3/uL Normal 150-400 [facility] Comment on above: Order Comment: Speci men Type: URINE SPECIMEN Ordering Facility: [facility] Nephrology Address: [place] [address] Performed By: #### 2 4356-8 #### [facility] CLIA [id number] [address] [place] [address] [place] RBC (Bld) [#/Vol] 3.67 10*6/uL Low 3.90-5.20 [facility] Comment on above: Order Comment: Speci men Type: URINE SPECIMEN Ordering Facility: [facility] Nephrology Address: [place] [address] Performed By: #### 2 4356-8 #### [facility] CLIA [id number] [address] [place] [address] [place] WBC (Bld) [#/Vol] 8.37 10*3/uL Normal 3.70-11.00 [facility] Comment on above: Order Comment: Speci men Type: URINE SPECIMEN Ordering Facility: [facility] Nephrology Address: [place] [address] Performed By: #### 2 4356-8 #### [facility] CLIA [id number] [address] [place] [address] [place] C[facility] CBC W AUTO DIFF BLDon Basophils/100 WBC (Bld) 0.6 % [facility] BASOPHILS # BLD AUTO 0.05 [facility] DIFFERENTIAL METHOD BLD Auto [facility] EOSINOPHIL # BLD AUTO 0.35 [facility] LYMPHOCYTES # BLD AUTO 1.53 [facility] MONOCYTES # BLD AUTO 0.7 [facility] NEUTROPHILS # BLD AUTO 5.71 [facility] NRBC # BLD AUTO <0.01 [facility] NRBC/100 WBC BLD-RTO 0 /100 WBC [facility] PLATELET # BLD AUTO 295 [facility] PMV BLD AUTO 10.1 fL 9.0 - 12.7 fL [facility] WBC # BLD AUTO 8.37 [facility] Eosinophils/100 WBC (Bld) 4.2 % [facility] Erythrocyte distribution width (RBC) [Ratio] 12.8 % 11.5 - 15.0 % [facility] Hematocrit (Bld) [Volume fraction] 33.7 % Low 36.0 - 46.0 % [facility] Hemoglobin (Bld) [Mass/Vol] 11.4 g/dL Low 11.5 - 15.5 g/dL [facility] IMM GRANULOCYTES # BLD AUTO 0.03 NINF [facility] IMM GRANULOCYTES/LEUK NFR BLD AUTO 0.4 % [facility] Interpretation and review of laboratory results Abnormal [facility] Lymphocytes/100 WBC (Bld) 18.3 % [facility] MCH (RBC) [Entitic mass] 31.1 pg 26.0 - 34.0 pg [facility] MCHC (RBC) [Mass/Vol] 33.8 g/dL 30.5 - 36.0 g/dL [facility] MCV (RBC) [Entitic vol] 91.8 fL 80.0 - 100.0 fL [facility] Monocytes/100 WBC (Bld) 8.4 % [facility] Neutrophils/100 WBC (Bld) 68.1 % [facility] RBC (Bld) [#/Vol] 3.67 10*6/uL Low 3.90 - 5.2 0 m/uL [facility] Specimen Type: BLOOD SPECIMEN Ordering Facility: [facility] Address: [address] [place] [address] Original Ordering Provider: ARNOL LIMA [facility] Carcinoembryonic Ag [Mass/Vol] 1.3 ng/mL Normal <=2.9 [facility] Comment on above: Order Comment: Speci men Type: BLOOD SPECIMEN Ordering Facility: [facility] Nephrology Address: [address] [place] [address] Result Comment: Carc inoembryonic antigen test is used as an aid in monitoring response to treatment or recurrence in patients with established colorectal, breast, lung, prostatic, pancreatic, and ovarian carcinomas. Clinical correlation is required. The Carcinoembryonic antigen test was performed using the cVidya Unicel DXI paramagnetic particle chemiluminescent immunoassay method. Results obtained with different assay methods or kits cannot be used interchangeably. Performed By: #### 1 989-3 #### [facility] CLIA [id number] [address] [place] [address] [place] CNOVSPon 07-31-2024 CNOVSP Visit (SP) Office (HEMASA) ALEKSANDER BARGER ([id number]) 1945 F Date Time Provider Department 07/31/24 9:40 AM ARNOL DAUGHERTY During your visit today, we recorded the following information about you: Temperature Pulse Respiration Blood pressure 97 degrees 81/minute 16/minute 157/76 Weight Height 75.6 kg 1.562 m Arnol Daugherty MD 07/31/2024 7:29 PM Signed NAME: Aleksander Barger CLINIC NO.: [id number] DATE OF SERVICE: July 31, 2024 (Michelle) [...] 2014. Did receive monthly B12 IM from [id number] with no improvement. Will monitor with labs [...] evidence fo (more content not included)... Normal [facility] CNPNon 07-31-2024 CNPN Telephone (NCCAP) ALEKSANDER BARGER ([id number]) 1945 F Date Time Provider Department 07/31/24 ANROL DAUGHERTY [facility] During your visit today, we recorded the [...] MD Sent: 07/31/2024 7:27 PM EST To: [facility] [place] Triage Pool Iron is ok, but she needs B12 shots. Q 4weeks. Allergies As of Date: 07/31/2024 Noted Allergy Reaction DTAP-IPV COMPONENT 1 OF 2 (PF) 09/08/2019 14 - Other: See Comments Comments: Maria Alejandra Camarillo FLU VAC 2019 [id number](PF) 09/08/2019 14 - Other: See Comments Comments: [...] 07/16/2014 Post-op pain [G89.18] 07/16/2014 DVT prophylaxis [SRV2445] 07/16/2014 Hydronephrosis of left kidney [N13.30] 07/20/2014 [...] Status:Closed by FACUNDO LLAMAS on 08/04/24 Normal [facility] Comprehensive metabolic 2000 panelon 07-31-2024 Albumin [Mass/Vol] 4.4 g/dL Normal 3.9-4.9 [facility] Comment on above: Order Comment: Speci men Type: BLOOD SPECIMEN Ordering Facility: [facility] Address: [address] [place], [place] [address] Performed By: #### 2 4323-8 #### [facility] CLIA [id number] [address] [place] [address] ALP [Catalytic activity/Vol] 88 U/L Normal 34-123 [facility] Comment on above: Order Comment: Speci men Type: BLOOD SPECIMEN Ordering Facility: [facility] Address: [address] [place] [address] Performed By: #### 2 4323-8 #### [facility] CLIA [id number] [address] [place] [address] ALT [Catalytic activity/Vol] 15 U/L Normal 7-38 [facility] Comment on above: Order Comment: Speci men Type: BLOOD SPECIMEN Ordering Facility: [facility] Address: [address] [place] [address] Performed By: #### 2 4323-8 #### [facility] CLIA [id number] [address] [place] [address] Anion gap [Moles/Vol] 12 mmol/L Normal 8-15 [facility] Comment on above: Order Comment: Speci men Type: BLOOD SPECIMEN Ordering Facility: [facility] Address: [address] [place] [address] Performed By: #### 2 4323-8 #### [facility] CLIA [id number] [address] [place] [address] AST [Catalytic activity/Vol] 22 U/L Normal 13-35 [facility] Comment on above: Order Comment: Speci men Type: BLOOD SPECIMEN Ordering Facility: [facility] Address: [address] [place] [address] Performed By: #### 2 4323-8 #### [facility] CLIA [id number] [address] [place] [address] Bilirubin [Mass/Vol] 0.5 mg/dL Normal 0.2-1.3 [facility] Comment on above: Order Comment: Speci men Type: BLOOD SPECIMEN Ordering Facility: [facility] Address: [address] [place] [address] Performed By: #### 2 4323-8 #### [facility] CLIA [id number] [address] [place] [address] Calcium [Mass/Vol] 10.9 mg/dL High 8.5-10.2 [facility] Comment on above: Order Comment: Speci men Type: BLOOD SPECIMEN Ordering Facility: [facility] Address: [address] [place] [place] [address] Performed By: #### 2 4323-8 #### [facility] CLIA [id number] [address] [place] [address] Chloride [Moles/Vol] 99 mmol/L Normal 98-107 [facility] Comment on above: Order Comment: Speci men Type: BLOOD SPECIMEN Ordering Facility: [facility] Address: [address] [place] [address] Performed By: #### 2 4323-8 #### [facility] CLIA [id number] [address] [place] [address] CO2 [Moles/Vol] 25 mmol/L Normal 22-30 [facility] Comment on above: Order Comment: Speci men Type: BLOOD SPECIMEN Ordering Facility: [facility] Address: [address] [place] [address] Performed By: #### 2 4323-8 #### [facility] CLIA [id number] [address] [place] [address] Creatinine [Mass/Vol] 1.39 mg/dL High 0.58-0.96 [facility] Comment on above: Order Comment: Speci men Type: BLOOD SPECIMEN Ordering Facility: [facility] Address: [address] [place] [address] Performed By: #### 2 4323-8 #### [facility] CLIA [id number] [address] [place] [address] Creatinine and Glomerular filtration rate.predicted panel (S/P/Bld) 38 mL/min/1.73m??? Low >=60 [facility] Comment on above: Order Comment: Speci men Type: BLOOD SPECIMEN Ordering Facility: [facility] Address: [address] [place] [address] Result Comment: Regina mated Glomerular Filtration Rate [...] GFR. Performed By: #### 2 4323-8 #### [facility] CLIA [id number] [address] [place] [address] Glucose [Mass/Vol] 102 mg/dL High 74-99 [facility] Comment on above: Order Comment: Speculisses men Type: BLOOD SPECIMEN Ordering Facility: [facility] Address: [address] [place] [id number] Result Comment: The [place] Diabetes Association (ADA) provides guidance for cutoff [...] Standards of Medical Care in Diabetes 2016, [place] [employer]. Diabetes Care. 2016.39(Suppl 1). Performed By: #### 2 4323-8 #### [facility] CLIA [id number] [address] [place] [address] Potassium [Moles/Vol] 4.0 mmol/L Normal 3.7-5.1 [facility] Comment on above: Order Comment: John joseph Type: BLOOD SPECIMEN Ordering Facility: [facility] Address: [address] [place] [address] Performed By: #### 2 4323-8 #### [facility] CLIA [id number] [address] [place] [address] Protein [Mass/Vol] 7.3 g/dL Normal 6.3-8.0 [facility] Comment on above: Order Comment: Speci men Type: BLOOD SPECIMEN Ordering Facility: [facility] Address: [address] [place] [address] Performed By: #### 2 4323-8 #### [facility] CLIA [id number] [address] [place] [address] Sodium [Moles/Vol] 136 mmol/L Normal 136-144 [facility] Comment on above: Order Comment: Speci men Type: BLOOD SPECIMEN Ordering Facility: [facility] Address: [address] [place] [address] Performed By: #### 2 4323-8 #### [facility] CLIA [id number] [address] [place] [address]227 Urea nitrogen [Mass/Vol] 23 mg/dL High 7-21 [facility] Comment on above: Order Comment: Speci men Type: BLOOD SPECIMEN Ordering Facility: [facility] Address: [address] [place] [address] Performed By: #### 2 4323-8 #### [facility] CLIA [id number] [address] [place] [address] Ferritin SerPl-mCncon 2023 Ferritin [Mass/Vol] 133.0 ng/mL Normal 14.7-205.1 [facility] Comment on above: Order Comment: Speci men Type: BLOOD SPECIMEN Ordering Facility: [facility] Address: [address] [place], [place] [address] [address] Performed By: #### 1 989-3 #### [facility] CLIA [id number] [address] [place] [address] [place] Folate SerPl-mCncon 07-31-20 24 Folate [Mass/Vol] ng/mL Normal >4.7 [facility] Comment on above: Order Comment: Speci men Type: BLOOD SPECIMEN Ordering Facility: [facility] Nephrology Address: [address] [place] [id number] Result Comment: A re sult of > 20 ng/mL is not necessarily indicative of a pathologic or treatable condition: it reflects a limitation of the test methodology. Assay reference range: 4.8 to 24.2 ng/mL. Suitable for detection of folate deficiency. Reference: Folate III (Folate III) [package insert V 1.0 Qatari]. [facility], [place], [place]: July 2015. Performed By: #### 1 989-3 #### [facility] CLIA [id number] [address] [place] [address] [place] Iron and Iron binding capaci ty panelon 07-31-2024 Iron [Mass/Vol] 55 ug/dL Normal 41-186 [facility] Comment on above: Order Comment: Speci men Type: BLOOD SPECIMEN Ordering Facility: [facility] [place] [address] Performed By: #### 1 989-3 #### [facility] CLIA [id number] [address] [place] [address] [place] Iron binding capacity [Mass/Vol] 302 ug/dL Normal 232-386 [facility] Comment on above: Order Comment: Speci men Type: BLOOD SPECIMEN Ordering Facility: [facility] [place] [address] Performed By: #### 1 989-3 #### [facility] CLIA [id number] [address] [place] [address] [place] Iron/TIBC [Molar ratio] 18.2 % Normal 15.0-57.0 [facility] Comment on above: Order Comment: Speci men Type: BLOOD SPECIMEN Ordering Facility: [facility] Nephrology Address: [address] [place] [address] Performed By: #### 1 989-3 #### [facility] CLIA [id number] [address] [place], [place] [address] [place] Vit B12 SerPl-mCncon 07-31- 024 Cobalamin (Vitamin B12) [Mass/Vol] 288 pg/mL Normal 232-1245 [facility] Comment on above: Order Comment: Speci men Type: BLOOD SPECIMEN Ordering Facility: [facility] Nephrology Address: [address] [place], [place] [address] [phone] Performed By: #### 1 989-3 #### [facility] [place] [id number] [address] [place] [address] [place] 25([place])D3 [facility] 2023 25-hydroxyvitamin D3 [Mass/Vol] 39.3 ng/mL Normal 31.0-80.0 [facility] Comment on above: Order Comment: Speci men Type: URINE SPECIMEN Ordering Facility: [facility] Ne[facility]rology Address: [address] [place], [place] [address] Performed By: #### 2 4356-8 #### [facility] IA [id number] [address] [place] [address] [place] ALBUMIN/CREATININE RATIO, UR INEon 03-10-2024 Albumin DL <= 20 mg/L (U) [Mass/Vol] 17.8 mg/L Normal [facility] Comment on above: Order Comment: Speci men Type: URINE SPECIMEN Ordering Facility: [facility] Nephrology Address: [address] [place] [address] Performed By: #### U ACR #### [facility] [place] [id number] [address] [place] [address] [place] Albumin/Creatinine (U) [Mass ratio] 20 mg/g Normal <30 [facility] Comment on above: Order Comment: Speci men Type: URINE SPECIMEN Ordering Facility: [facility] Nephrology Address: [address] [place], [place] [address] Result Comment: Adul t Male and Female Nephrotic Criteria: <30 mg/g is considered normal to mildly increased 30-300 mg/g is considered moderately increased >300 mg/g is considered severely increased KDIGO. (2013). KDIGO 2012 Clinical Practice Guideline for the Evaluation and Management of Chronic Kidney Disease. Official Journal of the International Society of Nephrology, 3(1), 1-150. Performed By: #### U ACR #### [facility] CLIA [id number] [address] [place] [address] [place] Creatinine (U) [Mass/Vol] 88.6 mg/dL Normal 20.0-300.0 [facility] Comment on above: Order Comment: Speci men Type: URINE SPECIMEN Ordering Facility: [facility] Nephrology Address: [place] [address] Performed By: #### U ACR #### [facility] CLIA [id number] [address] [place] [address] [place] CBC panel Auto (Bld)on 03-10 Erythrocyte distribution width (RBC) [Ratio] 13.2 % Normal 11.5-15.0 [facility] Comment on above: Order Comment: Speci men Type: URINE SPECIMEN Ordering Facility: [facility] Ne[facility]rology Address: [place] [address] Performed By: #### 2 4356-8 #### [facility] IA [id number] [address] [place], [place] [address] [place] Hematocrit (Bld) [Volume fraction] 35.8 % Low 36.0-46.0 [facility] Comment on above: Order Comment: Speci men Type: URINE SPECIMEN Ordering Facility: [facility] Nephrology Address: [place] [address] Performed By: #### 2 4356-8 #### [facility] IA [id number] [address] [place], [place] [address] [place] Hemoglobin (Bld) [Mass/Vol] 11.7 g/dL Normal 11.5-15.5 [facility] Comment on above: Order Comment: Speci men Type: URINE SPECIMEN Ordering Facility: [facility] Nephrology Address: [facility] [place] [id number] Performed By: #### 2 4356-8 #### [facility] CLIA [id number] [address] [place] [address] [place] MCH (RBC) [Entitic mass] 29.8 pg Normal 26.0-34.0 [facility] Comment on above: Order Comment: Speci men Type: URINE SPECIMEN Ordering Facility: [facility] Nephrology Address: [place] [address] Performed By: #### 2 4356-8 #### [facility] CLIA [id number] [address] [place] [address] [place] MCHC (RBC) [Mass/Vol] 32.7 g/dL Normal 30.5-36.0 [facility] Comment on above: Order Comment: Speci men Type: URINE SPECIMEN Ordering Facility: [facility] Nephrology Address: [place] [address] Performed By: #### 2 4356-8 #### [facility] CLIA [id number] [address] [place] [address] [place] MCV (RBC) [Entitic vol] 91.3 fL Normal 80.0-100.0 [facility] Comment on above: Order Comment: Speci men Type: URINE SPECIMEN Ordering Facility: [facility] Nephrology Address: [place] [address] Performed By: #### 2 4356-8 #### [facility] CLIA [id number] [address] [place] [address] [place] Nucleated RBC (Bld) [#/Vol] 10*3/uL Normal <0.01 [facility] Comment on above: Order Comment: Speci men Type: URINE SPECIMEN Ordering Facility: [facility] Nephrology Address: [place] [address] Performed By: #### 2 4356-8 #### [facility] CLIA [id number] [address] [place] [address] [place] Platelet mean volume (Bld) [Entitic vol] 10.0 fL Normal 9.0-12.7 [facility] Comment on above: Order Comment: Speci men Type: URINE SPECIMEN Ordering Facility: [facility] Ne[facility]rology Address: [address] [place] [address] Performed By: #### 2 4356-8 #### [facility] CLIA [id number] [address] [place] [address] [place] Platelets (Bld) [#/Vol] 286 10*3/uL Normal 150-400 [facility] Comment on above: Order Comment: Speci men Type: URINE SPECIMEN Ordering Facility: [facility] Nephrology Address: [address] [place] [address] Performed By: #### 2 4356-8 #### [facility] CLIA [id number] [address] [place] [address] [place] RBC (Bld) [#/Vol] 3.92 10*6/uL Normal 3.90-5.20 [facility] Comment on above: Order Comment: Speci men Type: URINE SPECIMEN Ordering Facility: [facility] Ne[facility]rology Address: [address] [place], [place] [address] Performed By: #### 2 4356-8 #### [facility] CLIA [id number] [address] [place] [address] [place] WBC (Bld) [#/Vol] 6.54 10*3/uL Normal 3.70-11.00 [facility] Comment on above: Order Comment: Speci men Type: URINE SPECIMEN Ordering Facility: [facility] Ne[facility] Address: [address] [place] [address] Performed By: #### 2 4356-8 #### [facility] CLIA [id number] [address] [place], [place] [address] [place] Comprehensive metabolic 2000 panelon 03-10-2024 Albumin [Mass/Vol] 4.7 g/dL Normal 3.9-4.9 [facility] Comment on above: Order Comment: Speci men Type: URINE SPECIMEN Ordering Facility: [facility] Nephrology Address: [place] [address] Performed By: #### 2 4356-8 #### [facility] CLIA [id number] [address] [place] [address] [place] ALP [Catalytic activity/Vol] 111 U/L Normal 34-123 [facility] Comment on above: Order Comment: Speci men Type: URINE SPECIMEN Ordering Facility: [facility] Nephrology Address: [place] [address] Performed By: #### 2 4356-8 #### [facility] CLIA [id number] [address] [place] [address] [place] ALT [Catalytic activity/Vol] 16 U/L Normal 7-38 [facility] Comment on above: Order Comment: Speci men Type: URINE SPECIMEN Ordering Facility: [facility] Nephrology Address: [address] [place] [id number] Performed By: #### 2 4356-8 #### [facility] CLIA [id number] [address] [place] [address] [place] Anion gap [Moles/Vol] 10 mmol/L Normal 8-15 [facility] Comment on above: Order Comment: Speci men Type: URINE SPECIMEN Ordering Facility: [facility] Nephrology Address: [place] [address] Performed By: #### 2 4356-8 #### [facility] CLIA [id number] [address] [place] [address] [place] AST [Catalytic activity/Vol] 22 U/L Normal 13-35 [facility] Comment on above: Order Comment: Speci men Type: URINE SPECIMEN Ordering Facility: [facility] Ne[facility]rology Address: [address] [place] [address] Performed By: #### 2 4356-8 #### [facility] CLIA [id number] [address] [place] [id number] [place] Bilirubin [Mass/Vol] 0.4 mg/dL Normal 0.2-1.3 [facility] Comment on above: Order Comment: Speci men Type: URINE SPECIMEN Ordering Facility: [facility] [place] [address] Performed By: #### 2 4356-8 #### [facility] CLIA [id number] [address] [place] [address] [place] Calcium [Mass/Vol] 11.8 mg/dL High 8.5-10.2 [facility] Comment on above: Order Comment: Speci men Type: URINE SPECIMEN Ordering Facility: [facility] [place] [address] Performed By: #### 2 4356-8 #### [facility] CLIA [id number] [address] [place] [address] [place] Chloride [Moles/Vol] 100 mmol/L Normal 98-107 [facility] Comment on above: Order Comment: Speci men Type: URINE SPECIMEN Ordering Facility: [facility] Nephrology Address: [address] , [place] [address] Performed By: #### 2 4356-8 #### [facility] CLIA [id number] [address] [place] [id number] [place] CO2 [Moles/Vol] 25 mmol/L Normal 22-30 [facility] Comment on above: Order Comment: Speci men Type: URINE SPECIMEN Ordering Facility: [facility] Ne[facility]rology Address: [address], [place] [address] Performed By: #### 2 4356-8 #### [facility] CLIA [id number] [address] [place], [place] [address] [place] Creatinine [Mass/Vol] 1.56 mg/dL High 0.58-0.96 [facility] Comment on above: Order Comment: John joseph Type: URINE SPECIMEN Ordering Facility: [facility] Ne[facility]rology Address: [place] [address] Performed By: #### 2 4356-8 #### [facility] CLIA [id number] [address] [place] [address] [place] Creatinine and Glomerular filtration rate.predicted panel (S/P/Bld) 33 mL/min/1.73m??? Low >=60 [facility] Comment on above: Order Comment: John joseph Type: URINE SPECIMEN Ordering Facility: [facility] Ne[facility] Address: [address] [place], [place] [address] [place] [address] Result Comment: Regina mated Glomerular Filtration Rate [...] GFR. Performed By: #### 2 4356-8 #### [facility] CLIA [id number] [address] [place] [address] [place] Glucose [Mass/Vol] 96 mg/dL Normal 74-99 [facility] Comment on above: Order Comment: John joseph Type: URINE SPECIMEN Ordering Facility: [facility] Ne[facility] Address: [place] [address] Result Comment: The [place] Diabetes Association (ADA) provides guidance for cutoff [...] Standards of Medical Care in Diabetes 2016, [place] [employer] Association. Diabetes Care. 2016.39(Suppl 1). Performed By: #### 2 4356-8 #### [facility] CLIA [id number] [address] [place], [place] [address] [place] Potassium [Moles/Vol] 4.2 mmol/L Normal 3.7-5.1 [facility] Comment on above: Order Comment: Speci men Type: URINE SPECIMEN Ordering Facility: [facility] Ne[facility] Address: [place] [address] Performed By: #### 2 4356-8 #### [facility] IA [id number] [address] [place] [address] [place] Protein [Mass/Vol] 7.9 g/dL Normal 6.3-8.0 [facility] Comment on above: Order Comment: Speci men Type: URINE SPECIMEN Ordering Facility: [facility] Ne[facility] Address: [place] [address] Performed By: #### 2 4356-8 #### [facility] IA [id number] [address] [place], [place] [address] [place] Sodium [Moles/Vol] 135 mmol/L Low 136-144 [facility] Comment on above: Order Comment: Speci men Type: URINE SPECIMEN Ordering Facility: [facility] Nephrology Address: [address] [place] [address] Performed By: #### 2 4356-8 #### [facility] CLIA [id number] [address] [place], [place] [address] [place] Urea nitrogen [Mass/Vol] 31 mg/dL High 7-21 [facility] Comment on above: Order Comment: Speci men Type: URINE SPECIMEN Ordering Facility: [facility] Nephrology Address: [place] [address] Performed By: #### 2 4356-8 #### [facility] CLIA [id number] [address] [facility] [address] [address] [place] Erythrocyte distribution wid th Auto (RBC) [Ratio]on 03-10-2024 Erythrocyte distribution width (RBC) [Ratio] 13.2 % 11.5-15.0 [facility] Hematocrit Auto (Bld) [Volum e fraction]on 03-10-2024 Hematocrit (Bld) [Volume fraction] 35.8 % Low 36.0-46.0 [facility] Hemoglobin [Mass/volume] in Bloodon 03-10-2024 Hemoglobin (Bld) [Mass/Vol] 11.7 g/dL 11.5-15.5 [facility] Laboratory - Chemistry and C hemistry - challengeon 03-10-2024 Bilirubin Ql (U) Negative Negative [facility] Glucose (U) [Mass/Vol] Negative Negative [facility] Ketones Ql (U) Negative Negative [facility] pH (U) 6.0 [pH] <8.5 [facility] Specific gravity (U) [Rel density] 1.011 1.005-1.030 [facility] Albumin [Mass/Vol] 4.7 g/dL 3.9-4.9 [facility] ALP [Catalytic activity/Vol] 111 U/L 34-123 [facility] ALT [Catalytic activity/Vol] 16 U/L 7-38 [facility] AST [Catalytic activity/Vol] 22 U/L 13-35 [facility] Bilirubin [Mass/Vol] 0.4 mg/dL 0.2-1.3 [facility] Calcium [Mass/Vol] 11.8 mg/dL High 8.5-10.2 [facility] Chloride [Moles/Vol] 100 mmol/L 98-107 [facility] CO2 [Moles/Vol] 25 mmol/L 22-30 [facility] Creatinine [Mass/Vol] 1.56 mg/dL High 0.58-0.96 [facility] Glucose [Mass/Vol] 96 mg/dL 74-99 [facility] Comment on above: The [place] Diabete s Association (ADA) provides guidance for [...] Standards of Medical Care in Diabetes 2016, [place] Diabetes Association. Diabetes Care. 2016.39(Suppl 1). Magnesium [Mass/Vol] 1.8 mg/dL 1.7-2.3 [facility] Potassium [Moles/Vol] 4.2 mmol/L 3.7-5.1 [facility] Sodium [Moles/Vol] 135 mmol/L Low 136-144 [facility] Urate [Mass/Vol] 9.5 mg/dL High 2.5-6.6 [facility] Urea nitrogen [Mass/Vol] 31 mg/dL High 7-21 [facility] - Specimen inform ationon 03-10-2024 Appearance (U) Clear Clear [facility] Color (U) Yellow Yellow [facility] - Urinalysison Bacteria LM.HPF (Urine sed) [#/Area] Negative Negative [facility] Hyaline casts LM Ql (Urine sed) 0 /LPF 0 /LPF [facility] Leukocyte esterase Test strip Ql (U) Trace Abnormal Negative [facility] Nitrite Ql (U) Negative Negative [facility] Protein Ql (U) Negative Negative [facility] Leukocytes [#/volume] correc gail for nucleated erythrocytes in Blood by Automated counon 03-10-2024 WBC corrected for nucl RBC Auto (Bld) [#/Vol] 6.54 k/uL 3.70-11.00 [facility] MCH Auto (RBC) [Entitic mass ]on 03-10-2024 MCH (RBC) [Entitic mass] 29.8 pg 26.0-34.0 [facility] MCHC Auto (RBC) [Mass/Vol]on 03-10-2024 MCHC (RBC) [Mass/Vol] 32.7 g/dL 30.5-36.0 [facility] MCV Auto (RBC) [Entitic vol] on 03-10-2024 MCV (RBC) [Entitic vol] 91.3 fL 80.0-100.0 [facility] Magnesium SerPl-mCncon 03-10 Magnesium [Mass/Vol] 1.8 mg/dL Normal 1.7-2.3 [facility] Comment on above: Order Comment: Speci men Type: URINE SPECIMEN Ordering Facility: [facility] Nephrology Address: [facility] [place] [address] Performed By: #### 2 4356-8 #### [facility] CLIA [id number] [address] [place] [address] [place] No Panel Informationon 03-10 Urine Albumin/Creatinine Ratio 20 mg/g <30 [facility] Comment on above: Adult Male and Femal e Nephrotic Criteria:<30 mg/g is considered normal to mildly qppyrrnxy67-897 mg/g is considered moderately increased>300 mg/g is considered severely increasedKDIGO. (2013). KDIGO 2012 Clinical Practice Guideline for the Evaluation and Management of Chronic Kidney Disease. Official Journal of the International Society of Nephrology, 3(1), 1-150. Urine Microalbumin mg/dl 17.8 mg/L [facility] Urine Occult Blood Negative Negative [facility] Urine Random Creatinine 88.6 mg/dL 20.0-300.0 [facility] Urine RBC 0-2 /HPF 0-2 /HPF [facility] Urine Squamous Epithelial Cells None Seen [HPF] [facility] Urine Urobilinogen 0.2 EU/dL 0.2-1.0 EU/dL [facility] Urine WBC 0-5 /HPF 0-5 /HPF [facility] Estimated GFR (CKD-EPI) 33 mL/min/1.73m??? Low >=60 [facility] Comment on above: Estimated Glomerular [...] GFR. Parathyroid Hormone (Intact) 88 pg/mL High [facility] Phosphorus Level 3.2 mg/dL 2.7-4.8 [facility] Nucleated RBC Auto (Bld) [#/ Vol]on 03-10-2024 Nucleated RBC (Bld) [#/Vol] 10*3/uL <0.01 [facility] PTH-Intact SerPl-mCncon 02-22 Parathyrin.intact [Mass/Vol] 88 pg/mL High [facility] Comment on above: Order Comment: Speci men Type: BLOOD SPECIMEN Ordering Facility: [facility] Nephrology Address: [address] [place], [place] [address] [address] Performed By: #### 2 731-8 #### [facility] CLIA [id number] [address] [place] [address] [place] Phosphate SerPl-mCncon 03-10 Phosphate [Mass/Vol] 3.2 mg/dL Normal 2.7-4.8 [facility] Comment on above: Order Comment: Speci men Type: URINE SPECIMEN Ordering Facility: [facility] Nephrology Address: [address] [place], [place] [address] [place] [id number] Performed By: #### 2 4356-8 #### [facility] CLIA [id number] [address] [place] [address] [place] Platelet mean volume Auto (B ld) [Entitic vol]on 03-10-2024 Platelet mean volume (Bld) [Entitic vol] 10.0 fL 9.0-12.7 [facility] Platelets Auto (Bld) [#/Vol] on 03-10-2024 Platelets (Bld) [#/Vol] 286 10*3/uL 150-400 [facility] Protein [Mass/volume] in Ser um or Plasmaon 03-10-2024 Protein [Mass/Vol] 7.9 g/dL 6.3-8.0 [facility] RBC Auto (Bld) [#/Vol]on RBC (Bld) [#/Vol] 3.92 10*6/uL 3.90-5.20 [facility] Serum or plasma anion gap de terminationon 03-10-2024 Anion gap [Moles/Vol] 10 mmol/L 8-15 [facility] Serum or plasma calcidiol me asurement (mass/volume)on 03-10-2024 25-hydroxyvitamin D3 [Mass/Vol] 39.3 ng/mL 31.0-80.0 [facility] Urate SerPl-mCncon Urate [Mass/Vol] 9.5 mg/dL High 2.5-6.6 [facility] Comment on above: Order Comment: Speci men Type: URINE SPECIMEN Ordering Facility: [facility] Nephrology Address: [address] [place] [address] Performed By: #### 2 4356-8 #### [facility] IA [id number] [address] [place] [address] [place] Urinalysis complete panel (U )on 03-10-2024 Bacteria LM.HPF (Urine sed) [#/Area] Negative Normal Negative [facility] Comment on above: Order Comment: Speci men Type: URINE SPECIMEN Ordering Facility: [facility] Nephrology Address: [address] [place], [place] [address] Performed By: #### 2 4356-8 #### [facility] IA [id number] [address] [place] [address] [place] Bilirubin Ql (U) Negative Normal Negative [facility] Comment on above: Order Comment: Speci men Type: URINE SPECIMEN Ordering Facility: [facility] Nephrology Address: [address] [place] [address] Performed By: #### 2 4356-8 #### [facility] CLIA [id number] [address] [address] [place] Clarity (Unsp spec) Clear Normal Clear [facility] Comment on above: Order Comment: Speci men Type: URINE SPECIMEN Ordering Facility: [facility] Nephrology Address: [facility] [place] [address] Performed By: #### 2 4356-8 #### [facility] CLIA [id number] [address] [place] [id number] [place] Color (U) Yellow Normal Yellow [facility] Comment on above: Order Comment: Speci men Type: URINE SPECIMEN Ordering Facility: [facility] Nephrology Address: [facility] [place] [address] Performed By: #### 2 4356-8 #### [facility] CLIA [id number] [address] [place] [address] [place] Epithelial cells LM.HPF (Urine sed) [#/Area] None Seen Normal [facility] Comment on above: Order Comment: Speci men Type: URINE SPECIMEN Ordering Facility: [facility] Nephrology Address: [facility] [place] [address] Performed By: #### 2 4356-8 #### [facility] CLIA [id number] [address] [place] [id number] [place] Glucose Test strip (U) [Mass/Vol] Negative Normal Negative [facility] Comment on above: Order Comment: Speci men Type: URINE SPECIMEN Ordering Facility: [facility] Nephrology Address: [place] [address] Performed By: #### 2 4356-8 #### [facility] CLIA [id number] [address] [place] [id number] [place] Hemoglobin Ql (U) Negative Normal Negative [facility] Comment on above: Order Comment: Speci men Type: URINE SPECIMEN Ordering Facility: [facility] Nephrology Address: [facility] [place] [address] Performed By: #### 2 4356-8 #### [facility] CLIA [id number] [address] [place] [address] [place] Hyaline casts (Urine sed) [#/Area] 0 /[LPF] Normal 0 /LPF [facility] Comment on above: Order Comment: Speci men Type: URINE SPECIMEN Ordering Facility: [facility] Nephrology Address: [facility] [place] [address] Performed By: #### 2 4356-8 #### [facility] CLIA [id number] [address] [place] [address] [place] Ketones Ql (U) Negative Normal Negative [facility] Comment on above: Order Comment: Speci men Type: URINE SPECIMEN Ordering Facility: [facility] Nephrology Address: [facility] [place] [address] Performed By: #### 2 4356-8 #### [facility] CLIA [id number] [address] [place] [address] [place] Leukocyte esterase Test strip Ql (U) Trace Abnormal Negative [facility] Comment on above: Order Comment: Speci men Type: URINE SPECIMEN Ordering Facility: [facility] Nephrology Address: [facility] [place] [address] Performed By: #### 2 4356-8 #### [facility] CLIA [id number] [address] [place] [address] [place] Nitrite Ql (U) Negative Normal Negative [facility] Comment on above: Order Comment: Speci men Type: URINE SPECIMEN Ordering Facility: [facility]phrology [facility] [place] [address] Performed By: #### 2 4356-8 #### [facility] CLIA [id number] [address] [place] [address] [place] pH (U) 6.0 [pH] Normal <8.5 [facility] Comment on above: Order Comment: Speci men Type: URINE SPECIMEN Ordering Facility: [facility] Nephrology [facility] [place] [address] Performed By: #### 2 4356-8 #### [facility] CLIA [id number] [address] [place] [address] [place] Protein (U) [Mass/Vol] Negative Normal Negative [facility] Comment on above: Order Comment: Speci men Type: URINE SPECIMEN Ordering Facility: [facility] Nephrology Address: [facility] [place] [address] Performed By: #### 2 4356-8 #### [facility] IA [id number] [address] [place] [address] [place] RBC LM.HPF (Urine sed) [#/Area] 0-2 /HPF Normal 0-2 /HPF [facility] Comment on above: Order Comment: Speci men Type: URINE SPECIMEN Ordering Facility: [facility] Nephrology [facility] [place] [address] Performed By: #### 2 4356-8 #### [facility] IA [id number] [address] [place] [address] [place] Specific gravity (U) [Rel density] 1.011 Normal 1.005-1.030 [facility] Comment on above: Order Comment: Speci men Type: URINE SPECIMEN Ordering Facility: [facility] Nephrology [facility] [place] [place] [address] Performed By: #### 2 4356-8 #### [facility] IA [id number] [address] [place] [address] [place] Urobilinogen Ql (U) 0.2 EU/dL Normal 0.2-1.0 EU/dL [facility] Comment on above: Order Comment: Speci men Type: URINE SPECIMEN Ordering Facility: [facility] Nephrology Address: [facility] [place] [address] Performed By: #### 2 4356-8 #### [facility] CLIA [id number] [address] [place] [address] [place] WBC LM.HPF (Urine sed) [#/Area] 0-5 /HPF Normal 0-5 /HPF [facility] Comment on above: Order Comment: Speci men Type: URINE SPECIMEN Ordering Facility: [facility] Nephrology Address: [address], [facility] [place] [address] Performed By: #### 2 4356-8 #### [facility] CLIA [id number] [address] [place] [address] [place] CT neck 4D parathyroidon CT neck 4D parathyroid [facility] [address] [place] [address] CT Scan Report Signed Patient: Aleksander Barger MR#: [id number] : 1945 Acct:[id number] Age/Sex: 78 / F ADM Date: 07/31/23 Loc: [place] Room: Type: [facility] Attending Dr: Alan Adams DO Copies to: [...] Sharda Salmeron M.D.08/01/2023 8:46 AM Dictation Location: [place] [address] Transcribed By: [facility] 08/01/23845 Dictated By: Sharda Salmeron MD 07/31/23 1455 Signed By: 08/01/23845 [facility] Creatinine (Bld) [Mass/Vol]O rdered By: Alan Adams on 07-31-2023 Creatinine [Mass/Vol] 1.5 mg/dL 0.6-1.3 [facility] Comment on above: ER/ESD physician is notified/shown all ISTAT results.Critical values may be confirmed by laboratory testing ifdeemed necessary by ER attending doctor. ISTAT XRay CREon 07-31-2023 Creatinine [Mass/Vol] 1.5 mg/dL High 0.6-1.3 [facility] Comment on above: Result Comment: ER/E SD physician is notified/shown all ISTAT results. Critical values may be confirmed by laboratory testing if deemed necessary by ER attending doctor. Performed By: #### I SCRE #### [facility] [address] [place] [address] ISTAT GFR 35.229 [facility] Comment on above: Result Comment: PERF ORMED BY: [place] [address] PATHOLOGIST [employer]PARATION SUPERVISOR GILBERT HERNANDEZ M.D. Performed By: #### I SCRE #### [address] NM*parathyroid SPECT*on NM*parathyroid SPECT* [facility] Main [place] [address] [place] [address] Nuclear Medicine Report Signed Patient: Aleksander Barger MR#: [id number] : 1945 Acct:[id number] Age/Sex: 78 / F ADM Date: 07/31/23 Loc: [place] Room: Type: [facility] Attending Dr: Alan Adams DO Copies to: [...] Sharda Salmeron M.D.08/01/2023 8:46 AM Dictation Location: [place] [address] Transcribed By: [facility] 08/01/2346 Dictated By: Sharda Salmeron MD 07/31/23 1438 Signed By: 08/01/23845 [facility] No Panel InformationOrdered By: Alan Adams on 07-31-2023 Bedside Estimated GFR (eGFR) 35.229 [facility] MAGNESIUM BLDon 01-25-2023 Magnesium [Mass/Vol] 2.0 mg/dL 1.7 - 2 .3 mg/dL [facility] PHOSPHORUS INORGANICon 01-25 Phosphate [Mass/Vol] 3.6 mg/dL 2.7 - 4 .8 mg/dL [facility] URIC ACID BLOODon 01-25-2023 Urate [Mass/Vol] 9.5 mg/dL High 2.5 - 6.6 mg/dL [facility] US THYROID/PARATHYROIDon [facility] CT Abdomen and Pelvis W cont rast [...] any questions regarding this interpretation, please call [phone]. If you are unable to reach us at the number above, please feel free to contact [facility] eRadiology at [phone]. DIVISION OF RADIOLOGY * * *Final Report* * * DATE OF EXAM: Jul 26 2022 3:16PM [facility] 0530 - CT ABD/PEL W IVCON / [...] performed concurrently and will be dictated separately. Rag Cutting Machine Feeder (topogram) images: No additional findings. DIVISION OF RADIOLOGY Provider, [facility] - 07/27/2022 * * *Final Report* * * DATE OF EXAM: Jul 26 2022 3:16PM [facility] 0530 - CT ABD/PEL W IVCON / [...] performed concurrently and will be dictated separately. [employer] Machine Feeder (topogram) images: No additional findings. IMPRESSION IMPRESSION: [...] any questions regarding this interpretation, please call [phone]. If you are unable to reach us at the number above, please feel free to contact [facility] eRadiology at [phone]. [facility] CT Chest W contrast Erica IMPRESSION: 1. Several bilateral subcentimeter pulmonary nodules are again identified, stable from prior study of 01/04/2022. 2. 2.1 cm right lobe partially calcified thyroid nodule, unchanged. 3. No substantial intrathoracic adenopathy is appreciated. Transcribe Date/Time: Jul 26 2022 3:59P Dictated by: TIGSIT GRAVES MD This examination was interpreted and the report reviewed and electronically signed by: TIGIST GRAVES MD on Jul 27 2022 8:52AM EST Thank you for allowing us to participate in the care of your patient. Should there be any questions regarding this interpretation, please call [phone]. If you are unable to reach us at the number above, please feel free to [facility] at [phone]. DIVISION OF RADIOLOGY * * *Final Report* * * DATE OF EXAM: Jul 26 2022 3:16PM [facility] 0539 - CT CHEST W IVCON / [...] performed concurrently and will be dictated separately. [employer] Machine Feeder (topogram) images: No additional findings. DIVISION OF RADIOLOGY Provider, Jamie Lilly - 07/27/2022 * * *Final Report* * * DATE OF EXAM: Jul 26 2022 3:16PM [facility] 0539 - CT CHEST W IVCON / [...] performed concurrently and will be dictated separately. [employer] Machine Feeder (topogram) images: No additional findings. IMPRESSION IMPRESSION: [...] any questions regarding this interpretation, please call [phone]. If you are unable to reach us at the number above, please feel free to contact [facility] eRadiology at [phone]. [facility] No Panel InformationOrdered By: Ccf Provider on 07-27-2022 [facility] No Panel Informationon 07-26 Radiology Study observation (narrative) [facility] CT Neck WO contraston 2021 IMPRESSION: 1. [...] any questions regarding this interpretation, please call [phone]. If you are unable to reach us at the number above, please feel free to contact [facility] eRadiology at [phone]. DIVISION OF RADIOLOGY * * *Final Report* * * DATE OF EXAM: Jul 19 2022 10:17AM [facility] 0509 - CT NECK SOFT TISSUE WO [...] unremarkable intracranial structures, orbits, sinuses, skull base, nktrllyn-ryzjjawm-ektp ds, aerodigestive tract with mucosal lining, course [...] bilateral neural foramina. DIVISION OF RADIOLOGY Provider, [facility] - 07/19/2022 * * *Final Report* * * DATE OF EXAM: Jul 19 2022 10:17AM [facility] 0509 - CT NECK SOFT TISSUE WO [...] unremarkable intracranial structures, orbits, sinuses, skull base, hamqdmma-ytzugvyp-ogpv ds, aerodigestive tract with mucosal lining, course [...] any questions regarding this interpretation, please call [phone]. If you are unable to reach us at the number above, please feel free to contact [facility] eRadiology at [phone]. [facility] Radiology Study observation (narrative) [facility] CT Neck WO contrastOrdered B y: Ccf Provider on 07-19-2022 [facility] No Panel Informationon 05-28 LOWEST T-SCORE -1.4 [facility] US KIDNEY/BLADDERon 04-25-20 [facility] Comprehensive metabolic 2000 panelon 03-24-2022 Albumin [Mass/Vol] 4.6 g/dL 3.9 - 4.9 g/dL [facility] ALP [Catalytic activity/Vol] 78 U/L 34 - 123 U/L [facility] ALT [Catalytic activity/Vol] 16 U/L 7 - 38 U/L [facility] Anion gap [Moles/Vol] 11 mmol/L 9 - 18 mmol/L [facility] AST [Catalytic activity/Vol] [facility] Bilirubin [Mass/Vol] 0.3 mg/dL 0.2 - 1 .3 mg/dL [facility] Calcium [Mass/Vol] 10.7 mg/dL High 8.5 - 10. 2 mg/dL [facility] Chloride [Moles/Vol] 105 mmol/L 97 - 10 5 mmol/L [facility] CO2 [Moles/Vol] 18 mmol/L Low 22 - 30 mmol/L [facility] Creatinine [Mass/Vol] 1.46 mg/dL High 0.58 - 0.96 mg/dL [facility] Estimated Glomerular Filtration Rate 37 mL/min/1.73m Low >=60 mL/min/1.73m [facility] Glucose [Mass/Vol] 96 mg/dL 74 - 99 mg/dL [facility] Potassium [Moles/Vol] 5.3 mmol/L High 3.7 - 5.1 mmol/L [facility] Protein [Mass/Vol] 7.1 g/dL 6.3 - 8.0 g/dL [facility] Sodium [Moles/Vol] 134 mmol/L Low 136 - 144 mmol/L [facility] Urea nitrogen [Mass/Vol] 54 mg/dL High 7 - 21 mg/dL [facility] ANTI NEUTRO CYTO ABon 2021 INTERPRETATION (ANCA) Equivocal staining seen on the ethanol (indirect immunofluorescence screen) side but negative results on follow up confirmatory testing. Anti-nuclear antibody test may be considered. Clinical correlation is required. Normal [facility] Comment on above: Order Comment: Speci men Type: BLOOD SPECIMEN Ordering Facility: [facility] Address: [address] [place] [address] Performed By: #### B 12 2284-8 #### [facility] CLIA [id number] [facility] [place] [address] [place] Myeloperoxidase Ab Qn (S) <0.2 Normal <1.0 [facility] Comment on above: Order Comment: Speci men Type: BLOOD SPECIMEN Ordering Facility: [facility] Address: [address] [place] [address] Performed By: #### 2284-04 #### [facility] CLIA [id number] [place] Neutrophil cytoplasmic Ab.classic IF Ql (S) Negative Normal Negative [facility] Comment on above: Order Comment: Speci men Type: BLOOD SPECIMEN Ordering Facility: [facility] Address: [address] [place] [address] Performed By: #### 2284-04 #### [facility] CLIA [id number] Neutrophil cytoplasmic Ab.perinuclear IF Ql (S) Negative Normal Negative [facility] Comment on above: Order Comment: Speci men Type: BLOOD SPECIMEN Ordering Facility: [facility] Address: [address] [place] [address] Performed By: #### 2284-04 #### [facility] CLIA [id number] [address] [place] [address] OF [place] Proteinase 3 Ab Qn (S) <0.2 Normal <1.0 [facility] Comment on above: Order Comment: Speci men Type: BLOOD SPECIMEN Ordering Facility: [facility] Address: [address] [place] [address] Performed By: #### 2284-04 #### [facility] CLIA [id number] [place] STAFF REVIEW (ANCA) Reviewed by Ronny Mary, Ph.D D([facility]) [facility] Comment on above: Order Comment: Speci men Type: BLOOD SPECIMEN Ordering Facility: [facility] Address: [address] [place] [address] Performed By: #### 2284-04 #### [facility] CLIA [id number] [address] [place] [address]. [place] [address] [place] C3 SerPl-mCncon 02-23-2022 Complement C3 [Mass/Vol] 113 mg/dL Normal 86-166 [facility] Comment on above: Order Comment: Speci men Type: BLOOD SPECIMEN Ordering Facility: [facility] Address: [address] [place] [address] Performed By: #### 3 016-3, CK, 2777-1, FERR #### [facility] CLIA [id number] [address] [place] [address] [place] C4 SerPl-mCncon 02-23-2022 Complement C4 [Mass/Vol] 19 mg/dL Normal 13-46 [facility] Comment on above: Order Comment: Speci men Type: BLOOD SPECIMEN Ordering Facility: [facility] Address: [address] [place] [address] Performed By: #### 3 016-3, CK, 2777-1, FERR #### [facility] CLIA [id number] [address] [place] [address] [place] CBC W Auto Differential pane l (Bld)on 02-23-2022 Basophils (Bld) [#/Vol] 0.04 10*3/uL Normal <0.11 [facility] Comment on above: Order Comment: Speci men Type: BLOOD SPECIMEN Ordering Facility: [facility] Address: [address] [place] [address] Performed By: #### 5 7021-8 #### [facility] CLIA [id number] [address] [place] [address] [place] Basophils/100 WBC (Bld) 0.5 % Normal [facility] Comment on above: Order Comment: Speci men Type: BLOOD SPECIMEN Ordering Facility: [facility] Address: [address] [place] [address] Performed By: #### 5 7021-8 #### [facility] CLIA [id number] [address] [place] [address] [place] Differential cell count method Nom (Bld) Auto Normal [facility] Comment on above: Order Comment: Speci men Type: BLOOD SPECIMEN Ordering Facility: [facility] Address: [address] [place] [address] Performed By: #### 5 7021-8 #### [facility] IA [id number] [address] [place] [address] [place] Eosinophils (Bld) [#/Vol] 0.14 10*3/uL Normal <0.46 [facility] Comment on above: Order Comment: Speci men Type: BLOOD SPECIMEN Ordering Facility: [facility] Address: [address] [place] [address] Performed By: #### 5 7021-8 #### [facility] IA [id number] [place] Eosinophils/100 WBC (Bld) 1.8 % Normal [facility] Comment on above: Order Comment: Speci men Type: BLOOD SPECIMEN Ordering Facility: [facility] Address: [address] [place] [address] Performed By: #### 5 7021-8 #### [facility] IA [id number] [address] [place] [address] [place] Erythrocyte distribution width (RBC) [Ratio] 12.1 % Normal 11.5-15.0 [facility] Comment on above: Order Comment: Speci men Type: BLOOD SPECIMEN Ordering Facility: [facility] Address: [address] [place], [place] [address] Performed By: #### 5 7021-8 #### [facility] CLIA [id number] [place] Hematocrit (Bld) [Volume fraction] 34.0 % Low 36.0-46.0 [facility] Comment on above: Order Comment: Speci men Type: BLOOD SPECIMEN Ordering Facility: [facility] Address: [address] [place] [address] Performed By: #### 5 7021-8 #### [facility] CLIA [id number] [address] [place] [address] [place] Hemoglobin (Bld) [Mass/Vol] 11.4 g/dL Low 11.5-15.5 [facility] Comment on above: Order Comment: Speci men Type: BLOOD SPECIMEN Ordering Facility: [facility] Address: [address] [place] [address] Performed By: #### 5 7021-8 #### [facility] IA [id number] [address] [place] [address] [place] IMMATURE GRAN % 0.3 % Normal [facility] Comment on above: Order Comment: Speci men Type: BLOOD SPECIMEN Ordering Facility: [facility] Address: [address] [place] [address] Performed By: #### 5 7021-8 #### [facility] IA [id number] [address] [place] [address] [place] IMMATURE GRAN ABS <0.03 Normal <0.10 [facility] Comment on above: Order Comment: Speci men Type: BLOOD SPECIMEN Ordering Facility: [facility] Address: [address] [place] [address] Performed By: #### 5 7021-8 #### [facility] IA [id number] [address] [place] [address] [place] Lymphocytes (Bld) [#/Vol] 1.79 10*3/uL Normal 1.00-4.00 [facility] Comment on above: Order Comment: Speci men Type: BLOOD SPECIMEN Ordering Facility: [facility] Address: [address] [place] [address] Performed By: #### 5 7021-8 #### [facility] IA [id number] [address] [place] [address] [place] Lymphocytes/100 WBC (Bld) 23.3 % Normal [facility] Comment on above: Order Comment: Speci men Type: BLOOD SPECIMEN Ordering Facility: [facility] Address: [address] [place] [address] Performed By: #### 5 7021-8 #### [facility] IA [id number] [address] [place] MCH (RBC) [Entitic mass] 30.1 pg Normal 26.0-34.0 [facility] Comment on above: Order Comment: Speci men Type: BLOOD SPECIMEN Ordering Facility: [facility] Address: [address] [place] [address] Performed By: #### 5 7021-8 #### [facility] IA [id number] [place] [address] [place] MCHC (RBC) [Mass/Vol] 33.5 g/dL Normal 30.5-36.0 [facility] Comment on above: Order Comment: Speci men Type: BLOOD SPECIMEN Ordering Facility: [facility] Address: [address] [place] [address] Performed By: #### 5 7021-8 #### [facility] IA [id number] [address] [place] [address] [place] MCV (RBC) [Entitic vol] 89.7 fL Normal 80.0-100.0 [facility] Comment on above: Order Comment: Speci men Type: BLOOD SPECIMEN Ordering Facility: [facility] Address: [address] [place] [address] Performed By: #### 5 7021-8 #### [facility] IA [id number] [address] [place] [address] [place] Monocytes (Bld) [#/Vol] 0.56 10*3/uL Normal <0.87 [facility] Comment on above: Order Comment: Speci men Type: BLOOD SPECIMEN Ordering Facility: [facility] Address: [address] [place] [address] Performed By: #### 5 7021-8 #### [facility] IA [id number] [place] [address] [place] Monocytes/100 WBC (Bld) 7.3 % Normal [facility] Comment on above: Order Comment: Speci men Type: BLOOD SPECIMEN Ordering Facility: [facility] Address: [address] Performed By: #### 5 7021-8 #### [facility] IA [id number] [address] [place] [address] [place] Neutrophils (Bld) [#/Vol] 5.12 10*3/uL Normal 1.45-7.50 [facility] Comment on above: Order Comment: Speci men Type: BLOOD SPECIMEN Ordering Facility: [facility] Address: [address] [place], [place] [address] Performed By: #### 5 7021-8 #### [facility] IA [id number] [address] [place] [address] [place] Neutrophils/100 WBC (Bld) 66.8 % Normal [facility] Comment on above: Order Comment: Speci men Type: BLOOD SPECIMEN Ordering Facility: [facility] Address: [address] [place], [place] [address] Performed By: #### 5 7021-8 #### [facility] IA [id number] [address] [place] [address] [place] Nucleated RBC (Bld) [#/Vol] 10*3/uL Normal <0.01 [facility] Comment on above: Order Comment: Speci men Type: BLOOD SPECIMEN Ordering Facility: [facility] Address: [address] [place], [place] [address] Performed By: #### 5 7021-8 #### [facility] IA [id number] [address] [place] [address] [place] Nucleated RBC/100 WBC (Bld) [Ratio] 0.0 /100 WBC Normal [facility] Comment on above: Order Comment: Speci men Type: BLOOD SPECIMEN Ordering Facility: [facility] Address: [address] [place], [place] [address] Performed By: #### 5 7021-8 #### [facility] IA [id number] [address] [place] [address] [place] Platelet mean volume (Bld) [Entitic vol] 9.6 fL Normal 9.0-12.7 [facility] Comment on above: Order Comment: Speci men Type: BLOOD SPECIMEN Ordering Facility: [facility] Address: [address] [place], [place] [address] Performed By: #### 5 7021-8 #### [facility] CLIA [id number] [address] [place] [address] [place] Platelets (Bld) [#/Vol] 299 10*3/uL Normal 150-400 [facility] Comment on above: Order Comment: Speci men Type: BLOOD SPECIMEN Ordering Facility: [facility] Address: [address] [place], [place] [address] Performed By: #### 5 7021-8 #### [facility] CLIA [id number] [address] [place] [address] [place] RBC (Bld) [#/Vol] 3.79 10*6/uL Low 3.90-5.20 [facility] Comment on above: Order Comment: Speci men Type: BLOOD SPECIMEN Ordering Facility: [facility] Address: [address] [place], [place] [address] Performed By: #### 5 7021-8 #### [facility] IA [id number] [address] [place] [address] [place] WBC (Bld) [#/Vol] 7.67 10*3/uL Normal 3.70-11.00 [facility] Comment on above: Order Comment: Speci men Type: BLOOD SPECIMEN Ordering Facility: [facility] Address: [address] [place], [place] [address] Performed By: #### 5 7021-8 #### [facility] CLIA [id number] [address] [place] [address] [facility] [place] CK CREATINE KINASEon 022 CK [Catalytic activity/Vol] 330 U/L High 42-196 [facility] Comment on above: Order Comment: Speci men Type: BLOOD SPECIMEN Ordering Facility: [facility] Address: [address] [place] [address] Performed By: #### 3 016-3, CK, 2777-1, FERR #### [facility] CLIA [id number] [address] [place] [address] [place] CYSTATIN Con 02-23-2022 Cystatin C [Mass/Vol] 1.41 mg/L High 0.61-0.95 [facility] Comment on above: Order Comment: Speci men Type: BLOOD SPECIMEN Ordering Facility: [facility] Address: [address] [place] [address] Performed By: #### 3 016-3, CK, 2777-1, FERR #### [facility] CLIA [id number] [address] [place] CYSTATIN C EGFR 43 mL/min/1.73m??? Low >=60 [facility] Comment on above: Order Comment: John joseph Type: BLOOD SPECIMEN Ordering Facility: [facility] Address: [address] [place] [address] Result Comment: Regina mated Glomerular Filtration Rate (eGFR) is calculated using the 2012 CKD-EPI cystatin C equation. This equation utilizes serum cystatin C, sex, and age as parameters. The cystatin C assay has traceable calibration to the ERM-DA471/[facility] reference material. Refer to KDIGO guidelines for clinical interpretation. In patients with unstable renal function, e.g. those with acute kidney injury, the eGFR may not accurately reflect actual GFR. Performed By: #### 3 016-3, BEVERLEY, 2777-, FERR #### [facility] CLIA [id number] [address] [place] [address] [place] Comprehensive metabolic 2000 panelon 02-23-2022 Albumin [Mass/Vol] 4.7 g/dL Normal 3.9-4.9 [facility] Comment on above: Order Comment: John joseph Type: BLOOD SPECIMEN Ordering Facility: [facility] Address: [address] [place] [address] Performed By: #### B 12, 2284-8 #### [facility] CLIA [id number] [address] [place] [address] [place] ALP [Catalytic activity/Vol] 87 U/L Normal 34-123 [facility] Comment on above: Order Comment: Speci men Type: BLOOD SPECIMEN Ordering Facility: [facility] Address: [address] Performed By: #### B 4-8 #### [facility] CLIA [id number] [address] [place] [address] [place] ALT [Catalytic activity/Vol] 21 U/L Normal 7-38 [facility] Comment on above: Order Comment: Speci men Type: BLOOD SPECIMEN Ordering Facility: [facility] Address: [address] [place], [place] [address] Performed By: #### B 2283-8 #### [facility] CLIA [id number] [address] [place] [address] [place] Anion gap [Moles/Vol] 11 mmol/L Normal 9-18 [facility] Comment on above: Order Comment: Speci men Type: BLOOD SPECIMEN Ordering Facility: [facility] Address: [address] [place], [place] [address] Performed By: #### B 2283-8 #### [facility] CLIA [id number] [address] [place] [address] [place] AST [Catalytic activity/Vol] 28 U/L Normal 13-35 [facility] Comment on above: Order Comment: Speci men Type: BLOOD SPECIMEN Ordering Facility: [facility] Address: [address] [place], [place] [address] Performed By: #### B 4-8 #### [facility] CLIA [id number] [address] [place] [address] [place] Bilirubin [Mass/Vol] 0.6 mg/dL Normal 0.2-1.3 [facility] Comment on above: Order Comment: Speci men Type: BLOOD SPECIMEN Ordering Facility: [facility] Address: [address] [place], [place] [address] Performed By: #### B 4-8 #### [facility] CLIA [id number] [address] [place] [address] [place] Calcium [Mass/Vol] 10.6 mg/dL High 8.5-10.2 [facility] Comment on above: Order Comment: Speci men Type: BLOOD SPECIMEN Ordering Facility: [facility] Address: [address] [place], [place] [address] Performed By: #### B 2283-8 #### [facility] CLIA [id number] [id number] [place] [address] [place] Chloride [Moles/Vol] 86 mmol/L Low 97-105 [facility] Comment on above: Order Comment: Speci men Type: BLOOD SPECIMEN Ordering Facility: [facility] Address: [address] [place], [place] [address] Performed By: #### 2283-8 #### [facility] IA [id number] [address] [place] [address] [place] CO2 [Moles/Vol] 23 mmol/L Normal 22-30 [facility] Comment on above: Order Comment: Speci men Type: BLOOD SPECIMEN Ordering Facility: [facility] Address: [address] [place] [phone] Performed By: #### B 4-8 #### [facility] CLIA [id number] [address] [place] [address] [place] Creatinine [Mass/Vol] 1.08 mg/dL High 0.58-0.96 [facility] Comment on above: Order Comment: Speci men Type: BLOOD SPECIMEN Ordering Facility: [facility] Address: [address] [place] [phone] Performed By: #### B 4-8 #### [facility] CLIA [id number] [address] [place] [address] [place] ESTIMATED GLOMERULAR FILTRATION RATE 53 mL/min/1.73m??? Low >=60 [facility] Comment on above: Order Comment: John joseph Type: BLOOD SPECIMEN Ordering Facility: [facility] Address: [address] [place] [phone] Result Comment: Regina mated Glomerular Filtration Rate [...] Performed By: #### B , 2284-8 #### [facility] CLIA [id number] [facility] [place] [address] [place] Glucose [Mass/Vol] 93 mg/dL Normal 74-99 [facility] Comment on above: Order Comment: John joseph Type: BLOOD SPECIMEN Ordering Facility: [facility] Address: [address] Result Comment: The [place] Diabetes Association (ADA) provides guidance for cutoff [...] Standards of Medical Care in Diabetes 2016, [place] [employer]. Diabetes Care. 2016.39(Suppl 1). Performed By: #### B 2284-8 #### [facility] CLIA [id number] [facility] [place] [address] [place] Potassium [Moles/Vol] 4.4 mmol/L Normal 3.7-5.1 [facility] Comment on above: Order Comment: John joseph Type: BLOOD SPECIMEN Ordering Facility: [facility] Address: [address] [place] [phone] Performed By: #### B 2284-8 #### [facility] CLIA [id number] [address] [place] [address] [place] Protein [Mass/Vol] 7.5 g/dL Normal 6.3-8.0 [facility] Comment on above: Order Comment: Speci men Type: BLOOD SPECIMEN Ordering Facility: [facility] Address: [address] [place] [address] Performed By: #### B 4-8 #### [facility] CLIA [id number] [address] [place] [address] [place] Sodium [Moles/Vol] 120 mmol/L Low 136-144 [facility] Comment on above: Order Comment: Speci men Type: BLOOD SPECIMEN Ordering Facility: [facility] Address: [address] [place] [address] Performed By: #### B 4-8 #### [facility] CLIA [id number] [address] [place] [address] [place] Urea nitrogen [Mass/Vol] 19 mg/dL Normal 7-21 [facility] Comment on above: Order Comment: Speci men Type: BLOOD SPECIMEN Ordering Facility: [facility] Address: [address] [place] [address] Performed By: #### B 4-8 #### [facility] CLIA [id number] [address] [place] [address] [place] Cryoglobulin [Mass/Vol]on CRYOGLOBULIN, QUALITATIVE Negative Normal Negative [facility] Comment on above: Order Comment: Speci men Type: BLOOD SPECIMEN Ordering Facility: [facility] Address: [address] [place] [address] Result Comment: This test was developed and its performance characteristics determined by [facility]'s Juancarlos JKenny [facility] Pathology and Laboratory Medicine [place] ([facility]). It has not been cleared or approved by the FDA. [facility] is regulated under CLIA as qualified to perform high-complexity testing. This test is used for clinical purposes. It should not be regarded as investigational or for research. Performed By: #### 2 168-3 #### [facility] CLIA [id number] [address] [place], [place] [address] [address] [place] FERRITIN BLDon 02-23-2022 Ferritin [Mass/Vol] 169.7 ng/mL Normal 14.7-205.1 [facility] Comment on above: Order Comment: Speculisses [facility] Type: BLOOD SPECIMEN Ordering Facility: [facility] Address: [address] [place] [address] Performed By: #### 3 016-3, CK, 2777-1, FERR #### [facility] CLIA [id number] [address] [place] [address] [place] Folate SerPl-mCncon 02-24-20 22 Folate [Mass/Vol] ng/mL Normal >4.7 [facility] Comment on above: Order Comment: Speculisses [facility] Type: BLOOD SPECIMEN Ordering Facility: [facility] Address: [address] [place] [address] Result Comment: A re sult of > 20 ng/mL is not necessarily indicative of a pathologic or treatable condition: it reflects a limitation of the test methodology. Assay reference range: 4.8 to 24.2 ng/mL. Suitable for detection of folate deficiency. Reference: Folate III (Folate III) [package insert V 1.0 Qatari]. [facility], [place], [place]: July 2015. Performed By: #### B 12, 2284-8 #### [facility] CLIA [id number] [address] [place] [address] [place] GBM IGG AUTOANTIBODYon 02-23 GBM IGG AB, (BEAD) 0 AU/mL Normal 0-19 [facility] Comment on above: Order Comment: John [facility] Type: BLOOD SPECIMEN Ordering Facility: [facility] Address: [address] [place] [address] Result Comment: INTE RPRETIVE INFORMATION: GBM Ab, [...] and assessment of renal prognosis. Performed By: [employer] [address] [place] [address] [employer]ator: Shabnam Meredith MD Performed By: #### 3 016-3, CK, 2777-1, FERR #### [facility] CLIA [id number] [place] HBV core Ab Ser Qlon 022 HBV core Ab Ql (S) Negative Normal Negative [facility] Comment on above: Order Comment: Speci men Type: BLOOD SPECIMEN Ordering Facility: [facility] Address: [address] [place] [address] Result Comment: No e vidence of current or past infection with Hepatitis B virus. Should recent infection be suspected, repeat testing may be considered 3-4 weeks after this draw. Performed By: #### B 12, 2284-8 #### [facility] CLIA [id number] [place] HBV surface Ab IA Ql (S)on 0 02-23-2022 HBV surface Ag Ql (S) Negative Normal Negative [facility] Comment on above: Order Comment: Speci [facility] Type: BLOOD SPECIMEN Ordering Facility: [facility] Address: [address] [place] [address] Performed By: #### B , 2284-8 #### [facility] CLIA [id number] [address] [place], [place] [id number] [place] [address] [place] HBV surface Ab Ser Qlon 06-0 HBV surface Ab Ql (S) Negative Normal Negative [facility] Comment on above: Order Comment: Speci [facility] Type: BLOOD SPECIMEN Ordering Facility: [facility] Address: [address] [place] [address] Result Comment: No e vidence of current or past infection with Hepatitis B virus. Should recent infection be suspected, repeat testing may be considered 3-4 weeks after this draw. Performed By: #### B 4-8 #### [facility] CLIA [id number] [address] [place] [id number] [place] [address] [place] HCV Ab Ser Qlon 02-23-2022 HCV Ab Ql (S) Negative Normal [facility] Comment on above: Order Comment: John opal Type: BLOOD SPECIMEN Ordering Facility: [facility] Address: [address] [place] [address] Result Comment: The result suggests no evidence of active infection with Hepatitis C virus. Should recent infection be suspected, repeat testing may be considered 4-6 weeks after this draw. Performed By: #### B 4-8 #### [facility] CLIA [id number] [address] [place], [place] [address] [place] IRON + TIBCon 02-23-2022 Iron [Mass/Vol] 69 ug/dL Normal 41-186 [facility] Comment on above: Order Comment: John joseph Type: BLOOD SPECIMEN Ordering Facility: [facility] Address: [address] [place] [address] Performed By: #### B 4-8 #### [facility] CLIA [id number] [address] [place] [address] [place] Iron binding capacity [Mass/Vol] 309 ug/dL Normal 232-386 [facility] Comment on above: Order Comment: Jonh opal Type: BLOOD SPECIMEN Ordering Facility: [facility] Address: [address] [place] [address] Performed By: #### B 4-8 #### [facility] CLIA [id number] [address] [place] [address] [place] Iron/TIBC [Molar ratio] 22 % Normal 15-57 [facility] Comment on above: Order Comment: Speci men Type: BLOOD SPECIMEN Ordering Facility: [facility] Address: [address] [place] [address] Performed By: #### B 12, 2284-8 #### [facility] CLIA [id number] [facility] [place] [address] [place] KAPPA/RAYMOND,FREE,SERon 2021 Immunoglobulin light chains.kappa.free (S) [Mass/Vol] 24.7 mg/L High 3.3-19.4 [facility] Comment on above: Order Comment: Speci men Type: BLOOD SPECIMEN Ordering Facility: [facility] Address: [address] [place] [address] Performed By: #### K LFRS #### [facility] CLIA [id number] [address] [place] [address] [place] Immunoglobulin light chains.kappa/Immunoglo bulin light chains.lambda (S) [Mass ratio] 0.86 Normal 0.26-1.65 [facility] Comment on above: Order Comment: Speci men Type: BLOOD SPECIMEN Ordering Facility: [facility] Address: [address] [place] [address] Performed By: #### K LFRS #### [facility] CLIA [id number] [address] [place] [address] [place] Immunoglobulin light chains.lambda.free [Mass/Vol] 28.8 mg/L High 5.7-26.3 [facility] Comment on above: Order Comment: Speci men Type: BLOOD SPECIMEN Ordering Facility: [facility] Address: [address] [place] [address] Performed By: #### K LFRS #### [facility] CLIA [id number] [address] [place] [address] [place] LDH SerPl-cCncon 02-23-2022 LDH [Catalytic activity/Vol] 218 U/L High 135-214 [facility] Comment on above: Order Comment: Speci men Type: BLOOD SPECIMEN Ordering Facility: [facility] Address: [address] [place] [address] Performed By: #### B 12, 2284-8 #### [facility] CLIA [id number] [address] [place] [address] [place] PROTEIN ELECTROPHORESIS SERU M (P)on 02-23-2022 Albumin [Mass/Vol] 4.33 g/dL High 3.37-4.23 [facility] Comment on above: Order Comment: Speci men Type: BLOOD SPECIMEN Ordering Facility: [facility] Address: [address] [place] [address] Performed By: #### L [id number] #### [facility] CLIA [id number] [address] [place] [address] [place] Alpha 1 globulin Elph [Mass/Vol] 0.27 g/dL Normal 0.18-0.31 [facility] Comment on above: Order Comment: Speci men Type: BLOOD SPECIMEN Ordering Facility: [facility] Address: [address] [place] [address] Performed By: #### L [id number] #### [facility] CLIA [id number] [address] [place] [address] [place] Alpha 2 globulin Elph [Mass/Vol] 0.72 g/dL Normal 0.52-0.97 [facility] Comment on above: Order Comment: Speci men Type: BLOOD SPECIMEN Ordering Facility: [facility] Address: [address] [place], [place] [address] Performed By: #### L [id number] #### [facility] CLIA [id number] [address] [place] [address] [place] Beta globulin Elph [Mass/Vol] 1.00 g/dL Normal 0.84-1.36 [facility] Comment on above: Order Comment: Speci men Type: BLOOD SPECIMEN Ordering Facility: [facility] Address: [address] [place], [place] [address] Performed By: #### L [id number] #### [facility] CLIA [id number] [address] [place] [address] Gamma globulin Elph (Body fld) [Mass fraction] 0.98 g/dL Normal 0.70-1.44 [facility] Comment on above: Order Comment: Speci men Type: BLOOD SPECIMEN Ordering Facility: [facility] Address: [address] [place], [place] [id number] Performed By: #### L [id number] #### [facility] CLIA [id number] [address] [place] [address] JANET M-PROTEIN LOCATION Normal [facility] Comment on above: Order Comment: Speci men Type: BLOOD SPECIMEN Ordering Facility: [facility] Address: [address] [place] [address] Result Comment: Not Applicable. Performed By: #### L [id number] #### [facility] CLIA [id number] [address] [place] [address] Protein Fractions [Interp] No definitive M protein is identified on protein electrophoresis. Normal No definitive M protein is identified on protein electrophores is. [facility] Comment on above: Order Comment: Speci men Type: BLOOD SPECIMEN Ordering Facility: [facility] Address: [address] [place], [place] [id number] Performed By: #### L [id number] #### [facility] CLIA [id number] [address] [place] [address] OF [place] Protein.monoclonal Elph [Mass/Vol] 0.00 g/dL Normal <=0.00 [facility] Comment on above: Order Comment: Speci men Type: BLOOD SPECIMEN Ordering Facility: [facility] Address: [address] [place], [place] [id number] Performed By: #### L [id number] #### [facility] CLIA [id number] [address] [place] [address] [place] SPE STAFF REVIEW Reviewed by Amaya Tompkins MD [facility] Comment on above: Order Comment: Speci men Type: BLOOD SPECIMEN Ordering Facility: [facility] Address: [address] [place], [place] [id number] Performed By: #### L [id number] #### [facility] CLIA [id number] [address] [place] [address] [id number] PTH INTACT BLDon 02-23-2022 Parathyrin.intact [Mass/Vol] 96 pg/mL High 15-65 [facility] Comment on above: Order Comment: Speci men Type: BLOOD SPECIMEN Ordering Facility: [facility] Address: [address] [place], [place] [id number] Performed By: #### 3 016-3, CK, 2777-1, FERR #### [facility] CLIA [id number] [address] [place], [place] [address] [place] [address] [place] Phosphate SerPl-mCncon 02-23 Phosphate [Mass/Vol] 3.0 mg/dL Normal 2.7-4.8 [facility] Comment on above: Order Comment: Speci men Type: BLOOD SPECIMEN Ordering Facility: [facility] Address: [address] [place], [place] [id number] Performed By: #### 3 016-3, CK, 2777-1, FERR #### [facility] CLIA [id number] [address] [place] [address] [place] Prot SerPl-mCncon 02-23-2022 Protein [Mass/Vol] 7.3 g/dL Normal 6.3-8.0 [facility] Comment on above: Order Comment: Speci men Type: BLOOD SPECIMEN Ordering Facility: [facility] Address: [address] [place], [place] [id number] Performed By: #### B 12, 2284-8 #### [facility] CLIA [id number] [address] [place] [address] [place] TSH SerPl-aCncon 02-23-2022 TSH Qn 0.955 m[IU]/L Normal 0.270-4.200 [facility] Comment on above: Order Comment: Speci men Type: BLOOD SPECIMEN Ordering Facility: [facility] Address: [facility] [place] [address] Performed By: #### 3 016-3, CK, 2777-1, FERR #### [facility] CLIA [id number] [address] [place] [address] [place] Transferrin SerPl-mCncon Transferrin [Mass/Vol] 255 mg/dL Normal 200-360 [facility] Comment on above: Order Comment: Speci men Type: BLOOD SPECIMEN Ordering Facility: [facility] Address: [address] [place] [address] Performed By: #### 3 016-3, CK, 2777-1, FERR #### [facility] CLIA [id number] [address] [place] [address] [place] Urate SerPl-mCncon Urate [Mass/Vol] 7.0 mg/dL High 2.5-6.6 [facility]ital Comment on above: Order Comment: Speci men Type: BLOOD SPECIMEN Ordering Facility: [facility] Address: [address] [place] [address] Performed By: #### B 12, 2284-8 #### [facility] CLIA [id number] [address] [place] [address] [place] VITAMIN B12 BLOODon 02-24-20 22 Cobalamin (Vitamin B12) [Mass/Vol] 428 pg/mL Normal 232-1,245 [facility] Comment on above: Order Comment: Speci men Type: BLOOD SPECIMEN Ordering Facility: [facility] Address: [address] [place] [address] Performed By: #### B 2284-8 #### [facility] CLIA [id number] [address] [place] [address] [place] CALCIUM IONIZED Bon 01-13-20 22 Calcium.ionized (Bld) [Mass/Vol] 1.49 mmol/L High 1.08 - 1.30 mmol/L [facility] Calcium.ionized adjusted to pH 7.4 (Bld) [Moles/Vol] 1.42 mmol/L High 1.08 - 1.30 mmol/L [facility] CBC W Auto Differential pane l (Bld)on 01-12-2022 Abs Immature Gran <0.03 <0.10 k/uL [facility] Basophils (Bld) [#/Vol] 0.05 10*3/uL <0.11 k/uL [facility] Basophils/100 WBC (Bld) 0.7 % [facility] Differential cell count method Nom (Bld) Auto [facility] Eosinophils (Bld) [#/Vol] 0.26 10*3/uL <0.46 k/uL [facility] Eosinophils/100 WBC (Bld) 3.4 % [facility] Erythrocyte distribution width (RBC) [Ratio] 12.8 % 11.5 - 15.0 % [facility] Hematocrit (Bld) [Volume fraction] 36.7 % 36.0 - 46.0 % [facility] Hemoglobin (Bld) [Mass/Vol] 12.2 g/dL 11.5 - 15.5 g/dL [facility] Immature Gran % 0.3 % [facility] Lymphocytes (Bld) [#/Vol] 1.59 10*3/uL 1.00 - 4.00 k/uL [facility] Lymphocytes/100 WBC (Bld) 20.8 % [facility] MCH (RBC) [Entitic mass] 30.7 pg 26.0 - 34.0 pg [facility] MCHC (RBC) [Mass/Vol] 33.2 g/dL 30.5 - 36.0 g/dL [facility] MCV (RBC) [Entitic vol] 92.4 fL 80.0 - 100.0 fL [facility] Monocytes (Bld) [#/Vol] 0.61 10*3/uL <0.87 k/uL [facility] Monocytes/100 WBC (Bld) 8.0 % [facility] Neutrophils (Bld) [#/Vol] 5.10 10*3/uL 1.45 - 7.50 k/uL [facility] Neutrophils/100 WBC (Bld) 66.8 % [facility] Nucleated RBC (Bld) [#/Vol] 10*3/uL <0.01 k/uL [facility] Nucleated RBC/100 WBC (Bld) [Ratio] 0.0 /100 WBC [facility] Platelet mean volume (Bld) [Entitic vol] 10.0 fL 9.0 - 12.7 fL [facility] Platelets (Bld) [#/Vol] 281 10*3/uL 150 - 400 k/uL [facility] RBC (Bld) [#/Vol] 3.97 10*6/uL 3.90 - 5.2 0 m/uL [facility] WBC (Bld) [#/Vol] 7.63 10*3/uL 3.70 - 11. 00 k/uL [facility] Comprehensive metabolic 2000 panelon 01-12-2022 Albumin [Mass/Vol] 4.8 g/dL 3.9 - 4.9 g/dL [facility] ALP [Catalytic activity/Vol] 90 U/L 34 - 123 U/L [facility] ALT [Catalytic activity/Vol] 16 U/L 7 - 38 U/L [facility] Anion gap [Moles/Vol] 12 mmol/L 9 - 18 mmol/L [facility] AST [Catalytic activity/Vol] 24 U/L 13 - 35 U/L [facility] Bilirubin [Mass/Vol] 0.5 mg/dL 0.2 - 1 .3 mg/dL [facility] Calcium [Mass/Vol] 11.5 mg/dL High 8.5 - 10. 2 mg/dL [facility] Chloride [Moles/Vol] 101 mmol/L 97 - 10 5 mmol/L [facility] CO2 [Moles/Vol] 23 mmol/L 22 - 30 mmol/L [facility] Creatinine [Mass/Vol] 1.46 mg/dL High 0.58 - 0.96 mg/dL [facility] Estimated Glomerular Filtration Rate 37 mL/min/1.73m Low >=60 mL/min/1.73m [facility] Glucose [Mass/Vol] 92 mg/dL 74 - 99 mg/dL [facility] Potassium [Moles/Vol] 4.9 mmol/L 3.7 - 5.1 mmol/L [facility] Protein [Mass/Vol] 7.6 g/dL 6.3 - 8.0 g/dL [facility] Sodium [Moles/Vol] 136 mmol/L 136 - 144 mmol/L [facility] Urea nitrogen [Mass/Vol] 29 mg/dL High 7 - 21 mg/dL [facility] PTH INTACT BLDon 01-12-2022 Parathyrin.intact [Mass/Vol] 58 pg/mL 15 - 65 pg/mL [facility] CT Abdomen and Pelvis WO con traston 01-04-2022 Interpretation and review of laboratory results Abnormal [facility] Radiology Result ACTIONABLE Abnormal [facility] Comment on above: This report [...] be communicated with the ordering provider via [facility] staff message or phone message by [employer] within 2 business days of report finalization. Algorithms for management of incidental imaging findings can be found on the [facility] Intr[employer]et Sharepoint site at: [email or web address] [...] any questions regarding this interpretation, please call [phone]. If you are unable to reach us at the number above, please feel free to contact [facility] eRadiology at [phone]. ZZZ_DO_NOT_US E_DIVISION OF RADIOLOGY * * *Final Report* * * DATE OF EXAM: Jan 04 2022 11:10AM [facility] 0531 - CT ABD/PEL WO IVCON / [...] chest CT performed will be reported separately. [employer] Feeder (topogram) images: No additional findings. ZZZ_DO_NOT_US E_DIVISION OF RADIOLOGY Provider, [facility] - 01/04/2022 * * *Final Report* * * DATE OF EXAM: Jan 04 2022 11:10AM [facility] 0531 - CT ABD/PEL WO IVCON / [...] chest CT performed will be reported separately. [employer] Feeder (topogram) images: No additional findings. IMPRESSION IMPRESSION: [...] be communicated with the ordering provider via [facility] staff message or phone message by [facility] within 2 business days of report finalization. Algorithms for management of incidental imaging findings can be found on the [facility] [employer] Sharepoint site at: [email or web address] [...] any questions regarding this interpretation, please call [phone]. If you are unable to reach us at the number above, please feel free to contact [facility] eRadiology at [phone]. [facility] CT Chest WO contraston 01-04 IMPRESSION: 1. [...] any questions regarding this interpretation, please call [phone]. If you are unable to reach us at the number above, please feel free [facility] at [phone]. ZZZ_DO_NOT_US E_DIVISION OF RADIOLOGY * * *Final Report* * * DATE OF EXAM: Jan 04 2022 11:10AM [facility] 0541 - CT CHEST WO IVCON / [...] are scattered small noncalcified pulmonary nodules, with admitting representative examples detailed as follows on series [...] for findings related to the upper abdomen. [employer] Fe[employer] (topogram) images: No additional findings. ZZZ_DO_NOT_US E_DIVISION OF RADIOLOGY Provider, [facility] - 01/04/2022 * * *Final Report* * * DATE OF EXAM: Jan 04 2022 11:10AM [facility] 0541 - CT CHEST WO IVCON / [...] are scattered small noncalcified pulmonary nodules, with admitting representative examples detailed as follows on series [...] for findings related to the upper abdomen. [employer] Fe[employer] (topogram) images: No additional findings. IMPRESSION IMPRESSION: [...] any questions regarding this interpretation, please call [phone]. If you are unable to reach us at the number above, please feel free to contact [facility] eRadiology at [phone]. [facility] CT Chest WO contrastOrdered By: [facility] Provider on 01-04-2022 [facility] No Panel Informationon 01-04 Radiology Study observation (narrative) [facility] Vital Signs Date Time Vital Sign Value Performing Clinician Facility 02-28-2025 10:42-0400 Body height 154.94 cm [facility] 02-28-2025 10:42-0400 Body mass index (BMI) [Ratio] 32.2 kg/m2 [facility] 02-28-2025 10:42-0400 Body temperature 97.9 [degF] [facility] 02-28-2025 10:42-0400 Body weight 77.33 kg [facility] 02-28-2025 10:42-0400 Diastolic blood pressure 70 mm[Hg] [facility] 02-28-2025 10:42-0400 Heart rate 68 /min [facility] 02-28-2025 10:42-0400 Respiratory rate 19 /min [facility] 02-28-2025 10:42-0400 SaO2% (BldA) [Mass fraction] 98 % [facility] 02-28-2025 10:42-0400 Systolic blood pressure 130 mm[Hg] [facility] 10-09-2024 10:22-0500 Body height 154.9 cm Logan Gomez MD Work Phone: [facility] 10-09-2024 10:22-0500 Body mass index (BMI) [Ratio] 31.74 kg/m2 Logan Gomez MD Work Phone: [facility] 10-09-2024 10:22-0500 Body temperature 97.5 [degF] Logan Gomez MD Work Phone: [facility] 10-09-2024 10:22-0500 Body weight 76.2 kg Logan Gomez MD Work Phone: [facility] 10-09-2024 10:22-0500 Diastolic blood pressure 70 mm[Hg] Logan Gomez MD Work Phone: [facility] 10-09-2024 10:22-0500 Heart rate 79 /min Logan Gomez MD Work Phone: [facility] 10-09-2024 10:22-0500 Respiratory rate 20 /min Logan Gomez MD Work Phone: [facility] 10-09-2024 10:22-0500 SaO2% (BldA) [Mass fraction] 98 % Logan Gomez MD Work Phone: [facility] 10-09-2024 10:22-0500 Systolic blood pressure 160 mm[Hg] Logan Gomez MD Work Phone: [facility] 10-01-2024 10:21-0500 Body height 154.94 cm [facility] 10-01-2024 10:21-0500 Body mass index (BMI) [Ratio] 31.4 kg/m2 [facility] 10-01-2024 10:21-0500 Body temperature 97.6 [degF] [facility] 10-01-2024 10:21-0500 Body weight 75.46 kg [facility] 10-01-2024 10:21-0500 Diastolic blood pressure 80 mm[Hg] [facility] 10-01-2024 10:21-0500 Heart rate 76 /min [facility] 10-01-2024 10:21-0500 Respiratory rate 16 /min [facility] 10-01-2024 10:21-0500 SaO2% (BldA) [Mass fraction] 100 % [facility] 10-01-2024 10:21-0500 Systolic blood pressure 155 mm[Hg] [facility] 09-01-2024 12:21-0500 Body temperature 97.59 [degF] Ma Sand Work Phone: [facility] 09-01-2024 12:21-0500 Diastolic blood pressure 74 mm[Hg] Ma Sand Work Phone: [facility] 09-01-2024 12:21-0500 Heart rate 75 /min Ma Sand Work Phone: [facility] 09-01-2024 12:21-0500 Respiratory rate 18 /min Ma Sand Work Phone: [facility] 09-01-2024 12:21-0500 SaO2% (BldA) [Mass fraction] 99 % Ma Sand Work Phone: [facility] 09-01-2024 12:21-0500 Systolic blood pressure 168 mm[Hg] Ma Sand Work Phone: [facility] 08-05-2024 10:38-0500 Body temperature 97.5 [degF] Ma Sand Work Phone: [facility] 08-05-2024 10:38-0500 Diastolic blood pressure 73 mm[Hg] Ma Sand Work Phone: [facility] 08-05-2024 10:38-0500 Heart rate 74 /min Ma Sand Work Phone: [facility] 08-05-2024 10:38-0500 Respiratory rate 16 /min Ma Sand Work Phone: [facility] 08-05-2024 10:38-0500 SaO2% (BldA) [Mass fraction] 97 % Ma Sand Work Phone: [facility] 08-05-2024 10:38-0500 Systolic blood pressure 152 mm[Hg] Ma Sand Work Phone: [facility] 07-31-2024 09:36-0500 Body height 156.2 cm Arnol Daugherty MD Work Phone: [facility] 07-31-2024 09:36-0500 Body mass index (BMI) [Ratio] 30.99 kg/m2 Arnol Daugherty MD Work Phone: [facility] 07-31-2024 09:36-0500 Body temperature 97 [degF] Arnol Daugherty MD Work Phone: [facility] 07-31-2024 09:36-0500 Body weight 75.6 kg Arnol Daugherty MD Work Phone: [facility] 07-31-2024 09:36-0500 Diastolic blood pressure 76 mm[Hg] Arnol Daugherty MD Work Phone: [facility] 07-31-2024 09:36-0500 Heart rate 81 /min Arnol Daugherty MD Work Phone: [facility] 07-31-2024 09:36-0500 Respiratory rate 16 /min Arnol Daugherty MD Work Phone: [facility] 07-31-2024 09:36-0500 SaO2% (BldA) [Mass fraction] 100 % Arnol Daugherty MD Work Phone: [facility] 07-31-2024 09:36-0500 Systolic blood pressure 157 mm[Hg] Arnol Daugherty MD Work Phone: [facility] 07-15-2024 11:00-0400 Body mass index (BMI) [Ratio] 31.59 kg/m2 Loagn Gomez MD Work Phone: [facility] 07-15-2024 11:00-0400 Body temperature 97.81 [degF] Logan Gomez MD Work Phone: [facility] 07-15-2024 11:00-0400 Body weight 75.84 kg Logan Gomez MD Work Phone: [facility] 07-15-2024 11:00-0400 Diastolic blood pressure 76 mm[Hg] Logan Gomez MD Work Phone: [facility] 07-15-2024 11:00-0400 Heart rate 67 /min Logan Gomez MD Work Phone: [facility] 07-15-2024 11:00-0400 SaO2% (BldA) [Mass fraction] 98 % Logan Gomez MD Work Phone: [facility] 07-15-2024 11:00-0400 Systolic blood pressure 142 mm[Hg] Logan Gomez MD Work Phone: [facility] 03-25-2024 13:54-0400 Body height 154.94 cm [facility] 03-25-2024 13:54-0400 Body mass index (BMI) [Ratio] 32.7 kg/m2 [facility] 03-25-2024 13:54-0400 Body temperature 96.9 [degF] [facility] 03-25-2024 13:54-0400 Body weight 78.58 kg [facility] 03-25-2024 13:54-0400 Diastolic blood pressure 82 mm[Hg] [facility] 03-25-2024 13:54-0400 Heart rate 71 /min [facility] 03-25-2024 13:54-0400 Respiratory rate 18 /min [facility] 03-25-2024 13:54-0400 SaO2% (BldA) [Mass fraction] 97 % [facility] 03-25-2024 13:54-0400 Systolic blood pressure 164 mm[Hg] [facility] 02-15-2024 14:02-0400 Body height 154.94 cm [facility] 02-15-2024 14:02-0400 Body mass index (BMI) [Ratio] 31.7 kg/m2 [facility] 02-15-2024 14:02-0400 Body temperature 97.3 [degF] [facility] 02-15-2024 14:02-0400 Body weight 76.2 kg [facility] 02-15-2024 14:02-0400 Diastolic blood pressure 71 mm[Hg] [facility] 02-15-2024 14:02-0400 Heart rate 67 /min [facility] 02-15-2024 14:02-0400 Respiratory rate 18 /min [facility] 02-15-2024 14:02-0400 SaO2% (BldA) [Mass fraction] 98 % [facility] 02-15-2024 14:02-0400 Systolic blood pressure 156 mm[Hg] [facility] 02-13-2024 13:43-0400 Body height 154.94 cm [facility] 02-13-2024 13:43-0400 Body mass index (BMI) [Ratio] 31.7 kg/m2 [facility] 02-13-2024 13:43-0400 Body temperature 97.3 [degF] [facility] 02-13-2024 13:43-0400 Body weight 76.2 kg [facility] 02-13-2024 13:43-0400 Diastolic blood pressure 74 mm[Hg] [facility] 02-13-2024 13:43-0400 Heart rate 70 /min [facility] 02-13-2024 13:43-0400 Respiratory rate 18 /min [facility] 02-13-2024 13:43-0400 SaO2% (BldA) [Mass fraction] 98 % [facility] 02-13-2024 13:43-0400 Systolic blood pressure 148 mm[Hg] [facility] 08-07-2023 11:00-0500 Body height 160.02 cm Olaf Sanabrias Other [employer] Other 08-07-2023 11:00-0500 Body mass index (BMI) [Ratio] 31.42 kg/m2 Olaf Sanabrias Other [employer] Other 08-07-2023 11:00-0500 Body temperature 96.9 [degF] Olaf Sanabrias Other [employer] Other 08-07-2023 11:00-0500 Body weight 80.47 kg Olaf Sanabrias Other [employer] Other 08-07-2023 11:00-0500 Diastolic blood pressure 79 mm[Hg] Azjackie Sanabrias Other [employer] Other 08-07-2023 11:00-0500 Respiratory rate 18 /min Olaf Sanabrias Other [employer] Other 08-07-2023 11:00-0500 SaO2% (BldA) [Mass fraction] 98 % Olaf Sanabrias Other [employer] Other 08-07-2023 11:00-0500 Systolic blood pressure 159 mm[Hg] Olaf Sanabrias Other [employer] Other 08-02-2023 13:54-0500 Body height 156.2 cm Arnol Daugherty MD Work Phone: [facility] 08-02-2023 13:54-0500 Body temperature 97.59 [degF] Arnol Daugherty MD Work Phone: [facility] 08-02-2023 13:54-0500 Body weight 78.2 kg Arnol Daugherty MD Work Phone: [facility] 08-02-2023 13:54-0500 Diastolic blood pressure 70 mm[Hg] Arnol Daugherty MD Work Phone: [facility] 08-02-2023 13:54-0500 Heart rate 78 /min Arnol Daugherty MD Work Phone: [facility] 08-02-2023 13:54-0500 Respiratory rate 18 /min Arnol Daugherty MD Work Phone: [facility] 08-02-2023 13:54-0500 SaO2% (BldA) [Mass fraction] 98 % Arnol Daugherty MD Work Phone: [facility] 08-02-2023 13:54-0500 Systolic blood pressure 141 mm[Hg] Arnol Daugherty MD Work Phone: [facility] 01-25-2023 14:41-0400 Body height 156.2 cm Arnol Daugherty MD Work Phone: [facility] 01-25-2023 14:41-0400 Body temperature 97.81 [degF] Arnol Daugherty MD Work Phone: [facility] 01-25-2023 14:41-0400 Body weight 77.56 kg Arnol Daugherty MD Work Phone: [facility] 01-25-2023 14:41-0400 Diastolic blood pressure 75 mm[Hg] Arnol Daugherty MD Work Phone: [facility] 01-25-2023 14:41-0400 Heart rate 85 /min Arnol Daugherty MD Work Phone: [facility] 01-25-2023 14:41-0400 Respiratory rate 16 /min Arnol Daugherty MD Work Phone: [facility] 01-25-2023 14:41-0400 SaO2% (BldA) [Mass fraction] 98 % Arnol Daugherty MD Work Phone: [facility] 01-25-2023 14:41-0400 Systolic blood pressure 147 mm[Hg] Arnol Daugherty MD Work Phone: [facility] 12-25-2022 11:35-0400 Body height 160.02 cm Donna Fariasmond Other [employer] Other 12-25-2022 11:35-0400 Body mass index (BMI) [Ratio] 30.47 kg/m2 Donna Leora Other [employer] Other 12-25-2022 11:35-0400 Body temperature 98.5 [degF] Donna Fariasmond Other [employer] Other 12-25-2022 11:35-0400 Body weight 78.02 kg Donna Leora Other [employer] Other 12-25-2022 11:35-0400 Diastolic blood pressure 78 mm[Hg] Donna Leora Other [employer] Other 12-25-2022 11:35-0400 Respiratory rate 18 /min Donna Leora Other [employer] Other 12-25-2022 11:35-0400 SaO2% (BldA) [Mass fraction] 99 % Donna Leora Other [facility] Other 12-25-2022 11:35-0400 Systolic blood pressure 174 mm[Hg] Donna Leora Other [employer] Other 08-29-2022 10:44-0500 Body height 156.2 cm Ghazala Humphrey MD Work Phone: [facility] 08-29-2022 10:44-0500 Body weight 76.66 kg Ghazala Humphrey MD Work Phone: [facility] 08-29-2022 10:44-0500 Diastolic blood pressure 68 mm[Hg] Ghazala Humphrey MD Work Phone: [facility] 08-29-2022 10:44-0500 Heart rate 70 /min Ghazala Humphrey MD Work Phone: [facility] 08-29-2022 10:44-0500 Systolic blood pressure 147 mm[Hg] Ghazala Humphrey MD Work Phone: [facility] 07-27-2022 11:11-0400 Body height 154.9 cm Arnol Daugherty MD Work Phone: [facility] 07-27-2022 11:11-0400 Body temperature 97.59 [degF] Arnol Daugherty MD Work Phone: [facility] 07-27-2022 11:11-0400 Body weight 76.2 kg Arnol Daugherty MD Work Phone: [facility] 07-27-2022 11:11-0400 Diastolic blood pressure 72 mm[Hg] Arnol Daugherty MD Work Phone: [facility] 07-27-2022 11:11-0400 Heart rate 73 /min Arnol Daugherty MD Work Phone: [facility] 07-27-2022 11:11-0400 Respiratory rate 16 /min Arnol Daugherty MD Work Phone: [facility] 07-27-2022 11:11-0400 SaO2% (BldA) [Mass fraction] 99 % Arnol Daugherty MD Work Phone: [facility] 07-27-2022 11:11-0400 Systolic blood pressure 165 mm[Hg] Arnol Daugherty MD Work Phone: [facility] 07-04-2022 16:55-0400 Body height 154.9 cm Arash Cavazos MD Work Phone: [facility] 07-04-2022 16:55-0400 Body weight 76.2 kg Arash Cavazos MD Work Phone: [facility] 07-04-2022 16:55-0400 Diastolic blood pressure 66 mm[Hg] Arash Cavazos MD Work Phone: [facility] 07-04-2022 16:55-0400 Heart rate 62 /min Arash Cavazos MD Work Phone: [facility] 07-04-2022 16:55-0400 Systolic blood pressure 171 mm[Hg] Arash Cavazos MD Work Phone: [facility] 05-23-2022 11:15-0400 Body weight 76.39 kg Ghazala Humphrey MD Work Phone: [facility] 05-23-2022 11:15-0400 Diastolic blood pressure 72 mm[Hg] Ghazala Humphrey MD Work Phone: [facility] 05-23-2022 11:15-0400 Heart rate 79 /min Ghazala Humphrey MD Work Phone: [facility] 05-23-2022 11:15-0400 Systolic blood pressure 154 mm[Hg] Ghazala Humphrey MD Work Phone: [facility] 03-24-2022 14:30-0400 Body temperature 98.01 [degF] [place] Work Phone: [facility] 03-24-2022 14:30-0400 Diastolic blood pressure 75 mm[Hg] Chair Marko Work Phone: [facility] 03-24-2022 14:30-0400 Heart rate 70 /min Chair Marko Work Phone: [facility] 03-24-2022 14:30-0400 Respiratory rate 16 /min Chair Marko Work Phone: [facility] 03-24-2022 14:30-0400 Systolic blood pressure 175 mm[Hg] Chair Marko Work Phone: [facility] 03-22-2022 10:01-0400 Body height 157.6 cm Arnol Daugherty MD Work Phone: [facility] 03-22-2022 10:01-0400 Body temperature 97.11 [degF] Arnol Daugherty MD Work Phone: [facility] 03-22-2022 10:01-0400 Body weight 77.66 kg Arnol Daugherty MD Work Phone: [facility] 03-22-2022 10:01-0400 Diastolic blood pressure 66 mm[Hg] Arnol Daugherty MD Work Phone: [facility] 03-22-2022 10:01-0400 Heart rate 84 /min Arnol Daugherty MD Work Phone: [facility] 03-22-2022 10:01-0400 Respiratory rate 16 /min Arnol Daugherty MD Work Phone: [facility] 03-22-2022 10:01-0400 SaO2% (BldA) [Mass fraction] 100 % Arnol Daugherty MD Work Phone: [facility] 03-22-2022 10:01-0400 Systolic blood pressure 132 mm[Hg] Arnol Daugherty MD Work Phone: [facility] 01-12-2022 10:16-0400 Body height 157.6 cm Arnol Daugherty MD Work Phone: [facility] 01-12-2022 10:16-0400 Body temperature 97.39 [degF] Arnol Daugherty MD Work Phone: [facility] 01-12-2022 10:16-0400 Body weight 80.47 kg Arnol Daugherty MD Work Phone: [facility] 01-12-2022 10:16-0400 Diastolic blood pressure 77 mm[Hg] Arnol Daugherty MD Work Phone: [facility] 01-12-2022 10:16-0400 Heart rate 74 /min Arnol Daugherty MD Work Phone: [facility] 01-12-2022 10:16-0400 Respiratory rate 16 /min Arnol Daugherty MD Work Phone: [facility] 01-12-2022 10:16-0400 SaO2% (BldA) [Mass fraction] 98 % Arnol Daugherty MD Work Phone: [facility] 01-12-2022 10:16-0400 Systolic blood pressure 179 mm[Hg] Arnol Daugherty MD Work Phone: [facility] Encounters Encounter Date Encounter Type Care Provider Facility Start: 02-28-2025 End: 02-28-2025 ambulatory [facility] Work Phone: Start: 02-28-2025 End: 02-28-2025 Patient encounter procedure [facility] Urgent [...] Not Available Start: 10-01-2024 End: 10-01-2024 ambulatory [facility] Work Phone: Start: 10-01-2024 End: 10-01-2024 Patient encounter procedure [facility] [place] Work Phone: Start: 09-25-2024 Non-patient / Non-visit [facility] [employer] Work Phone: Start: 09-25-2024 End: 09-25-2024 ambulatory AZIZ BAKHOUS Facility:[facility] Start: 09-25-2024 End: 09-25-2024 Clinisync Result Encounter Generic External Data Provider [facility] External Department Unsolicited Start: 09-25-2024 End: 09-25-2024 Clinisync Result Encounter Generic External Data Provider [facility] External Department Unsolicited Start: 09-01-2024 End: 09-01-2024 ambulatory ARNOL ABHYANKAR Facility:[facility] Start: 09-01-2024 End: 09-01-2024 Nursing evaluation of patient and report [place] No Work Phone: Hematology/Oncology Comment on above: 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); Other vitamin B12 deficiency anemia; Malignant neoplasm of colon, unspecified part of colon (HCC); Hydronephrosis of left kidney; Hypercalcemia Start: 08-05-2024 End: 08-05-2024 ambulatory LOGAN GOMEZ Facility:[facility] Start: 08-05-2024 End: 08-05-2024 Nursing evaluation [...] Start: 07-31-2024 End: 07-31-2024 ambulatory LOGAN GOMEZ Facility:[facility] Start: 07-15-2024 End: 07-15-2024 Bamboo flowsheet [...] hypertension (CMS/HCC) Start: 03-25-2024 End: 03-25-2024 ambulatory [facility] Work Phone: Start: 03-25-2024 End: 03-25-2024 Patient encounter procedure [facility] Nephrology Work Phone: Start: 03-10-2024 Non-patient / Non-visit [facility] Work Phone: Start: 03-10-2024 End: 03-10-2024 ambulatory LOGAN GOMEZ Facility:[facility] Start: 02-26-2024 End: 02-26-2024 ambulatory LOGAN GOMEZ Not Available Start: 02-15-2024 End: 02-15-2024 ambulatory [facility] Work Phone: Start: 02-15-2024 End: 02-15-2024 Patient encounter procedure [facility] Work Phone: Start: 02-13-2024 End: 02-13-2024 ambulatory [facility] Work Phone: Start: 02-13-2024 End: 02-13-2024 Patient encounter procedure [facility] Work Phone: Start: 08-07-2023 End: 08-07-2023 [facility] [employer] Other Start: 08-07-2023 Office outpatient vi sit 25 minutes Azjackie Bakprimos [facility] Start: 08-02-2023 End: 08-02-2023 Office outpatient visit 25 minutes Arnol Daugherty MD Work Phone: Hematology/Oncology Comment on above: 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 cer (Primary Dx); Hyperparathyroid (HCC); Hypercalcemia; Stage 3b chronic kidney disease (HCC); Anemia, unspecified type Start: 07-31-2023 End: 07-31-2023 ambulatory Alan Adams Facility:[facility] Start: 07-31-2023 End: 07-31-2023 ambulatory MD Logan Gomez Work Phone: [facility] Work Phone: Start: 07-31-2023 End: 07-31-2023 Patient encounter procedure MD Logan Gomez Work Phone: [facility] [place] Work Phone: Start: 07-04-2023 Telephone encounter Facundo Burnett Hematology/Oncology Comment on above: Appointment Start: 05-19-2023 Refill Arnol rodriguez MD Work Phone: Hematology/Oncology Comment on above: Refill Request Start: 02-05-2023 ambulatory Ghazala Humphrey MD Work Phone: Endocrinology Comment on above: Test results Start: 02-05-2023 E-mail encounter fro m caregiver Ghazala Humphrey MD Work Phone: [facility]ONZALES D[facility] Start: 01-25-2023 End: 01-25-2023 Office outpatient visit [...] 12-25-2022 End: 12-25-2022 ambulatory Donna Corey Other [employer] Other Start: 12-25-2022 Office outpatient vi sit 15 minutes Donna Corey [facility] Start: 10-22-[address]azala [address] MD Work Phone: Endocrinology Comment on above: Results Start: 09-28-2022 End: 09-28-2022 Subsequent hospital visit by physician [facility] Comment on above: Thyroid nodule [E04. 1] Start: 08-29-2022 End: 08-29-2022 Patient encounter procedure Ghazala Humphrey MD Work Phone: Endocrinology Comment on above: Hyperparathyroidism (HCC) (Primary Dx); Thyroid nodule; Hypercalcemia; Osteopenia of multiple sites Start: 07-27-2022 Telephone encounter Arnol walters MD Work Phone: [facility] Comment on above: Referral Information (Kidney Medicine) Start: 07-27-2022 End: 07-27-2022 ambulatory Arnol Daugherty MD Work Phone: Hematology/Oncology Comment on above: Malignant neoplasm o f colon, unspecified part of colon (HCC) (Primary Dx); Stage 3b chronic kidney disease (HCC); Hypercalcemia; Malignant neoplasm of rectum (HCC); Anemia, unspecified type Start: 07-27-2022 End: 07-27-2022 Patient encounter procedure Arnol Daugherty MD Work Phone: [place] Start: 07-26-2022 End: 07-26-2022 Subsequent hospital visit [...] with patient Arash Cavazos MD Work Phone: [facility] Start: 05-24-2022 End: 05-24-2022 Subsequent hospital visit by physician Bone Density [facility] Comment on above: Hypercalcemia [E83.5 2] Start: 05-23-2022 End: 05-23-2022 Patient encounter procedure Ghazala Humphrey MD Work Phone: Endocrinology Comment on above: Hyperparathyroidism (HCC) (Primary Dx); Hypercalcemia; Goiter Start: 05-18-2022 Refill Marylou harper [facility] Work Phone: Hematology/Oncology Comment on above: Refill Request Start: 04-26-2022 Telephone encounter Arash Cavazos MD Work Phone: Kidney [facility] Comment on above: Results Start: 04-25-2022 ambulatory Ludmila Nieto RT(R) Radiol ogy Comment on above: Radiology US Start: 04-25-2022 Patient encounter procedure Ludmila Hedrick ys RT(R) [facility] Start: 04-25-2022 End: 04-25-2022 Subsequent hospital visit by physician Us [facility] Comment on above: Chronic renal failur e, stage 3b (HCC) [N18.32] Start: 03-30-2022 Telephone encounter Arash Cavazos MD Work Phone: Kidney [facility] Comment on above: Results Start: 03-24-2022 End: 03-24-[address] [place] Work Phone: Hematology/Oncology Comment on above: Chronic [...] encounter Arnol walters MD Work Phone: [facility] Comment on above: Appointment Confirma tion [...] 01-04-2022 Ct thorax w/o contra st material Arnol Daugherty MD Work Phone: Start: 06-16-2020 Adult depression scr eening assessment Arnol Daugherty MD Work Phone: Plan of Treatment Date Care Activity Detail Author Start: 07-31-2027 Diabetes Screening Diabetes Screening [facility] Start: 03-10-2027 Diabetes Screening Diabetes Screening [facility] Start: 07-26-2026 Diabetes Screening Diabetes Screening [facility] Start: 01-25-2026 DIABETES SCREEN DIABETES SCREEN [facility] Start: 01-25-2026 Diabetes Screening Diabetes Screening [facility] Start: 07-31-2025 End: 07-31-2025 CBC W Auto Differential panel - Blood COMPLETE BLOOD COUNT AND DIFFERENTIAL Lab Routine 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cer Stage 3b chronic kidney disease (HCC) Expected: 07/31/2025 (Approximate), Expires: 07/31/2025 [facility] Work Phone: Comment on above: Expected: 07/31/2025 (Approximate), Expi res: 07/31/2025 Start: 07-31-2025 End: 07-31-2025 Cobalamin (Vitamin B12) [Mass/volume] in Serum or Plasma VITAMIN B12 Lab Routine 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cer Stage 3b chronic kidney disease (HCC) Expected: 07/31/2025 (Approximate), Expires: 07/31/2025 [facility] Comment on above: Expected: 07/31/2025 (Approximate), Expi res: 07/31/2025 Start: 07-31-2025 Complete blood count Hemoglobin/Hematocrit [facility] Start: 07-31-2025 End: 07-31-2025 Comprehensive metabolic 2000 panel - Serum or Plasma COMPREHENSIVE METABOLIC PANEL Lab Routine 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cer Stage 3b chronic kidney disease (HCC) Expected: 07/31/2025 (Approximate), Expires: 07/31/2025 [facility] Comment on above: Expected: 07/31/2025 (Approximate), Expi res: 07/31/2025 Start: 07-31-2025 Creatinine measurement Serum Creatinine [facility] Start: 07-31-2025 End: 10-30-2025 Erythropoietin (EPO) [Units/volume] in Serum or Plasma ERYTHROPOIETIN/EPO Lab Routine 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cer Stage 3b chronic kidney disease (HCC) Expected: 07/31/2025 (Approximate), Expires: 10/30/2025 [facility] Comment on above: Expected: 07/31/2025 (Approximate), Expi res: 10/30/2025 Start: 07-31-2025 End: 07-31-2025 Ferritin [Mass/volume] in Serum or Plasma FERRITIN Lab Routine 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cer Stage 3b chronic kidney disease (HCC) Expected: 07/31/2025 (Approximate), Expires: 07/31/2025 [facility] Comment on above: Expected: 07/31/2025 (Approximate), Expi res: 07/31/2025 Start: 07-31-2025 End: 07-31-2025 Folate [Mass/volume] in Serum or Plasma FOLATE, SERUM Lab Routine 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cer Stage 3b chronic kidney disease (HCC) Expected: 07/31/2025 (Approximate), Expires: 07/31/2025 [facility] Comment on above: Expected: 07/31/2025 (Approximate), Expi res: 07/31/2025 Start: 07-31-2025 End: 07-31-2025 Iron and Iron binding capacity panel - Serum or Plasma IRON AND TIBC Lab Routine 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cer Stage 3b chronic kidney disease (HCC) Expected: 07/31/2025 (Approximate), Expires: 07/31/2025 [facility] Comment on above: Expected: 07/31/2025 (Approximate), Expi res: 07/31/2025 Start: 07-30-2025 End: 07-30-2025 Follow-up encounter 07/30/2025 10:00 AM EST Visit (SP) Office Hematology/Oncology [address] [place] [address] Arnol Daugherty MD [address] [place] [address] 1 year follow up Hematology/Oncolog y Comment on above: 1 year follow up Start: 07-26-2025 DIABETES SCREEN DIABETES SCREEN [facility] Start: 07-23-2025 End: 07-23-2025 Patient encounter procedure 07/23/2025 9:00 AM EDT Office Visit [facility] [address] [place] [address] 1 year follow up [facility] Comment on above: 1 year follow up Start: 07-15-2025 Medicare Annual Wellness (AWV) Medicare Annual Wellness (AWV) [facility] Start: 03-24-2025 DIABETES SCREEN DIABETES SCREEN [facility] Start: 03-22-2025 DIABETES SCREEN DIABETES SCREEN [facility] Start: 03-10-2025 Complete blood count Hemoglobin/Hematocrit [facility] Start: 03-10-2025 Creatinine measurement Serum Creatinine [facility] Start: 02-23-2025 DIABETES SCREEN DIABETES SCREEN [facility] Start: 01-17-2025 DIABETES SCREEN DIABETES SCREEN [facility] Start: 01-13-2025 End: 01-13-2025 Patient encounter procedure 01/13/2025 10:00 AM EDT Office Visit [facility] [address] [place] [address] Logan Gomez MD [address] [place] [phone] [facility] Start: 01-12-2025 DIABETES SCREEN DIABETES SCREEN [facility] Start: 12-12-2024 End: 12-12-2024 Patient encounter procedure 12/12/2024 11:00 AM EDT Office Visit [facility] [address] [place] [phone] Logan Gomez MD [address] [place] [phone] [facility] Start: 10-09-2024 End: 10-09-2024 Patient encounter procedure 10/09/2024 10:00 AM EST Office Visit [facility] [address] [place] [phone] Logan Gomez MD [address] [place] [address] Arrived [facility] Comment on above: Arrived Start: 09-01-2024 End: 09-01-2024 Nursing evaluation of patient and report 09/01/2024 11:00 AM EST Nurse Visit Hematology/Oncology [address] [facility] [place] [address] [place] No Nurse Sebastian [address] [facility] [place] [address] B12 Injection Hematology/Oncolog y Comment on above: B12 Injection Start: 08-05-2024 End: 08-05-2024 Nursing evaluation of patient and report 08/05/2024 10:00 AM EST Nurse Visit Hematology/Oncology [address] [facility] [place] [address] [place] No Nurse Sebastian [address] [place] [address] B12 Injection Hematology/Oncolog y Comment on above: B12 Injection Start: 08-02-2024 End: 11-01-2024 Carcinoembryonic Ag [Mass/volume] in Serum or Plasma CEA BLD Lab Routine 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cer Anemia, unspecified type Expected: 08/02/2024 (Approximate), Expires: 11/01/2024 [facility] Work Phone: Comment on above: Expected: 08/02/2024 (Approximate), Expi res: 11/01/2024 Start: 08-02-2024 End: 08-02-2024 CBC W Auto Differential panel - Blood CBC + DIFF Lab Routine 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cer Anemia, unspecified type Expected: 08/02/2024 (Approximate), Expires: 08/02/2024 [facility] Work Phone: Comment on above: Expected: 08/02/2024 (Approximate), Expi res: 08/02/2024 Start: 08-02-2024 End: 08-02-2024 Cobalamin (Vitamin B12) [Mass/volume] in Serum or Plasma VITAMIN B12 BLOOD Lab Routine 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cer Anemia, unspecified type Expected: 08/02/2024 (Approximate), Expires: 08/02/2024 [facility] Work Phone: Comment on above: Expected: 08/02/2024 (Approximate), Expi res: 08/02/2024 Start: 08-02-2024 End: 08-02-2024 Comprehensive metabolic 2000 panel - Serum or Plasma COMP METABOLIC PANEL Lab Routine 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cer Anemia, unspecified type Expected: 08/02/2024 (Approximate), Expires: 08/02/2024 [facility] Work Phone: Comment on above: Expected: 08/02/2024 (Approximate), Expi res: 08/02/2024 Start: 08-02-2024 End: 08-02-2024 Ferritin [Mass/volume] in Serum or Plasma FERRITIN BLD Lab Routine 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cer Anemia, unspecified type Expected: 08/02/2024 (Approximate), Expires: 08/02/2024 [facility] Work Phone: Comment on above: Expected: 08/02/2024 (Approximate), Expi res: 08/02/2024 Start: 08-02-2024 End: 08-02-2024 Folate [Mass/volume] in Serum or Plasma FOLATE SERUM Lab Routine 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cer Anemia, unspecified type Expected: 08/02/2024 (Approximate), Expires: 08/02/2024 [facility] Work Phone: Comment on above: Expected: 08/02/2024 (Approximate), Expi res: 08/02/2024 Start: 08-02-2024 End: 08-02-2024 Iron and Iron binding capacity panel - Serum or Plasma IRON + TIBC Lab Routine 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cer Anemia, unspecified type Expected: 08/02/2024 (Approximate), Expires: 08/02/2024 [facility] Work Phone: Comment on above: Expected: 08/02/2024 (Approximate), Expi res: 08/02/2024 Start: 07-31-2024 End: 07-31-2024 Follow-up encounter 07/31/2024 10:15 AM EST Visit (SP) Office Hematology/Oncology [address] [place] [address] Arnol Daugherty MD [address] [place] [address] 1 year follow up Hematology/Oncolog y Comment on above: 1 year follow up Start: 07-31-2024 End: 07-31-2024 Patient encounter procedure 07/31/2024 10:00 AM EST Office Visit [facility] [address] [place] [address] 1 year follow up [facility] Comment on above: 1 year follow up Start: 07-26-2024 Hemoglobin/Hematocrit Hemoglobin/Hematocrit [facility] Start: 07-26-2024 Serum Creatinine Serum Creatinine [facility] Start: 07-15-2024 End: 07-15-2024 Patient encounter procedure [facility] Comment on above: Arrived Start: 05-25-2024 Covid-19 Vaccine ( season) Covid-19 Vaccine ( season) [facility] Start: 05-25-2024 Influenza vaccination Influenza Vaccine (#1) [facility] Start: 01-26-2024 HEMOGLOBIN/HEMATOCRIT HEMOGLOBIN/HEMATOCRIT [facility] Start: 01-26-2024 SERUM CREATININE SERUM CREATININE [facility] Start: 12-16-2023 DIABETES SCREEN DIABETES SCREEN [facility] Start: 09-24-2023 Advance Directive Discussion Advance Directive Discussion [facility] Start: 09-19-2023 SERUM CREATININE SERUM CREATININE [facility] Start: 07-31-2023 CT of soft tissues of neck with contrast CT neck 4D parathyroid [facility] Start: 07-31-2023 Single photon emission computed tomography of parathyroid NM*parathyroid SPECT* [facility] Start: 07-31-2023 SPECT Parathyroid gland [facility] Start: 07-26-2023 HEMOGLOBIN/HEMATOCRIT HEMOGLOBIN/HEMATOCRIT [facility] Start: 07-26-2023 SERUM CREATININE SERUM CREATININE [facility] Start: 05-25-2023 Covid-19 Vaccine () Covid-19 Vaccine () [facility] Start: 05-25-2023 Influenza vaccination [facility] Start: 03-30-2023 SERUM CREATININE SERUM CREATININE [facility] Start: 03-24-2023 SERUM CREATININE SERUM CREATININE [facility] Start: 03-22-2023 HEMOGLOBIN/HEMATOCRIT HEMOGLOBIN/HEMATOCRIT [facility] Start: 03-22-2023 SERUM CREATININE SERUM CREATININE [facility] Start: 02-23-2023 HEMOGLOBIN/HEMATOCRIT HEMOGLOBIN/HEMATOCRIT [facility] Start: 02-23-2023 SERUM CREATININE SERUM CREATININE [facility] Start: 01-26-2023 COVID-19 VACCINE (5 - Moderna series) COVID-19 VACCINE (5 - Moderna series) [facility] Start: 01-25-2023 End: 03-27-2023 25-hydroxyvitamin D3 [Mass/volume] in Serum or Plasma [facility] Work Phone: Comment on above: Expected: 01/25/2023, Expires: 3 Start: 01-25-2023 End: 03-27-2023 ALBUMIN/CREAT RATIO RND UR [facility] Work Phone: Comment on above: Expected: 01/25/2023, Expires: 3 Start: 01-25-2023 End: 03-27-2023 Parathyrin.intact [Mass/volume] in Serum or Plasma [facility] Work Phone: Comment on above: Expected: 01/25/2023, Expires: 3 Start: 01-24-2023 End: 03-26-2023 Carcinoembryonic Ag [Mass/volume] in Serum or Plasma CEA BLD Lab Routine Malignant neoplasm of rectum (HCC) Malignant neoplasm of colon, unspecified part of colon (HCC) Expected: 01/24/2023 (Approximate), Expires: 03/26/2023 [facility] Work Phone: Comment on above: Expected: 01/24/2023 (Approximate), Expi res: 03/26/2023 Start: 01-24-2023 End: 07-27-2023 CBC W Auto Differential panel - Blood CBC + DIFF Lab Routine Malignant neoplasm of colon, unspecified part of colon (HCC) Anemia, unspecified type Expected: 01/24/2023 (Approximate), Expires: 07/27/2023 [facility] Work Phone: Comment on above: Expected: 01/24/2023 (Approximate), Expi res: 07/27/2023 Start: 01-24-2023 End: 07-27-2023 Cobalamin (Vitamin B12) [Mass/volume] in Serum or Plasma VITAMIN B12 BLOOD Lab Routine Malignant neoplasm of colon, unspecified part of colon (HCC) Anemia, unspecified type Expected: 01/24/2023 (Approximate), Expires: 07/27/2023 [facility] Work Phone: Comment on above: Expected: 01/24/2023 (Approximate), Expi res: 07/27/2023 Start: 01-24-2023 End: 07-27-2023 Comprehensive metabolic 2000 panel - Serum or Plasma COMP METABOLIC PANEL Lab Routine Malignant neoplasm of colon, unspecified part of colon (HCC) Anemia, unspecified type Expected: 01/24/2023 (Approximate), Expires: 07/27/2023 [facility] Work Phone: Comment on above: Expected: 01/24/2023 (Approximate), Expi res: 07/27/2023 Start: 01-24-2023 End: 07-27-2023 Ferritin [Mass/volume] in Serum or Plasma FERRITIN BLD Lab Routine Malignant neoplasm of colon, unspecified part of colon (HCC) Anemia, unspecified type Expected: 01/24/2023 (Approximate), Expires: 07/27/2023 [facility] Work Phone: Comment on above: Expected: 01/24/2023 (Approximate), Expi res: 07/27/2023 Start: 01-24-2023 End: 07-27-2023 Folate [Mass/volume] in Serum or Plasma FOLATE SERUM Lab Routine Malignant neoplasm of colon, unspecified part of colon (HCC) Anemia, unspecified type Expected: 01/24/2023 (Approximate), Expires: 07/27/2023 [facility] Work Phone: Comment on above: Expected: 01/24/2023 (Approximate), Expi res: 07/27/2023 Start: 01-24-2023 End: 07-27-2023 Iron and Iron binding capacity panel - Serum or Plasma IRON + TIBC Lab Routine Malignant neoplasm of colon, unspecified part of colon (HCC) Anemia, unspecified type Expected: 01/24/2023 (Approximate), Expires: 07/27/2023 [facility] Work Phone: Comment on above: Expected: 01/24/2023 (Approximate), Expi res: 07/27/2023 Start: 01-17-2023 HEMOGLOBIN/HEMATOCRIT HEMOGLOBIN/HEMATOCRIT [facility] Start: 01-17-2023 SERUM CREATININE SERUM CREATININE [facility] Start: 01-11-2023 Adult depression screening assessment DEPRESSION SCREENING [facility] Start: 09-24-2022 ADVANCE DIRECTIVE DISCUSSION ADVANCE DIRECTIVE DISCUSSION [facility] Start: 09-24-2022 DEPRESSION ASSESSMENT DEPRESSION ASSESSMENT [facility] Start: 08-29-2022 End: 10-29-2022 CALCIUM 24 HR URINE CALCIUM 24 HR URINE Lab Routine Hypercalcemia Hyperparathyroidism (HCC) Expected: 08/29/2022, Expires: 10/29/2022 [facility] Work Phone: Comment on above: Expected: 08/29/2022, Expires: Start: 08-29-2022 End: 10-29-2022 CREATININE 24 HR UR CREATININE 24 HR UR Lab Routine Hypercalcemia Hyperparathyroidism (HCC) Expected: 08/29/2022, Expires: 10/29/2022 [facility] Work Phone: Comment on above: Expected: 08/29/2022, Expires: 3 Start: 08-29-2022 End: 10-29-2022 Renal function 2000 panel - Serum or Plasma RENAL FUNCTION PANEL Lab Routine Hypercalcemia Hyperparathyroidism (HCC) Expected: 08/29/2022, Expires: 10/29/2022 [facility] Work Phone: Comment on above: Expected: 08/29/2022, Expires: 3 Start: 08-29-2022 End: 10-29-2022 Sodium [Moles/time] in 24 hour Urine SODIUM 24 HR URINE Lab Routine Hypercalcemia Hyperparathyroidism (HCC) Expected: 08/29/2022, Expires: 10/29/2022 [facility] Work Phone: Comment on above: Expected: 08/29/2022, Expires: 3 Start: 07-29-2022 End: 01-26-2023 CBC W Auto Differential panel - Blood CBC + DIFF Lab Routine Chronic renal failure, stage 3b (HCC) Malignant neoplasm of colon, unspecified part of colon (HCC) Lung nodules Expected: 07/29/2022 (Approximate), Expires: 01/26/2023 [facility] Work Phone: Comment on above: Expected: 07/29/2022 (Approximate), Expi res: 01/26/2023 Start: 07-29-2022 End: 01-26-2023 Comprehensive metabolic 2000 panel - Serum or Plasma COMP METABOLIC PANEL Lab Routine Chronic renal failure, stage 3b (HCC) Malignant neoplasm of colon, unspecified part of colon (HCC) Lung nodules Expected: 07/29/2022 (Approximate), Expires: 01/26/2023 [facility] Work Phone: Comment on above: Expected: 07/29/2022 (Approximate), Expi res: 01/26/2023 Start: 07-29-2022 End: 02-25-2023 Ct abdomen & pelvis w/contrast material CT ABD/PEL W IVCON Radiology Routine Malignant neoplasm of colon, unspecified part of colon (HCC) Expected: 07/29/2022 (Approximate), Expires: 02/25/2023 [facility] Work Phone: Comment on above: Expected: 07/29/2022 (Approximate), Expi res: 02/25/2023 Start: 07-29-2022 End: 02-25-2023 Ct thorax w/contrast material CT CHEST W IVCON Radiology Routine Lung nodules Expected: 07/29/2022 (Approximate), Expires: 02/25/2023 [facility] Work Phone: Comment on above: Expected: 07/29/2022 (Approximate), Expi res: 02/25/2023 Start: 05-25-2022 Influenza vaccination [facility] Start: 03-30-2022 End: 05-30-2022 Renal function 2000 panel - Serum or Plasma RENAL FUNCTION PANEL Lab Routine RAMEZ (acute kidney injury) (HCC) Hypercalcemia Hyponatremia Expected: 03/30/2022, Expires: 05/30/2022 [facility] Work Phone: Comment on above: Expected: 03/30/2022, Expires: Start: 01-17-2022 End: 03-19-2022 CALCIUM IONIZED B CALCIUM IONIZED B Lab Routine Malignant neoplasm of rectum (HCC) Lung nodules Stage 3a chronic kidney disease (HCC) Hypercalcemia Expected: 01/17/2022 (Approximate), Expires: 03/19/2022 [facility] Work Phone: Comment on above: Expected: 01/17/2022 (Approximate), Expi res: 03/19/2022 Start: 01-17-2022 End: 01-13-2023 CBC W Auto Differential panel - Blood CBC + DIFF Lab Routine Malignant neoplasm of rectum (HCC) Lung nodules Stage 3a chronic kidney disease (HCC) Hypercalcemia Expected: 01/17/2022 (Approximate), Expires: 01/13/2023 [facility] Work Phone: Comment on above: Expected: 01/17/2022 (Approximate), Expi res: 01/13/2023 Start: 01-17-2022 End: 04-22-2023 Comprehensive metabolic 2000 panel - Serum or Plasma COMP METABOLIC PANEL Lab Routine Malignant neoplasm of rectum (HCC) Lung nodules Stage 3a chronic kidney disease (HCC) Hypercalcemia Expected: 01/17/2022 (Approximate), Expires: 01/13/2023 [facility] Work Phone: Comment on above: Expected: 01/17/2022 (Approximate), Expi res: 01/13/2023 Start: 01-17-2022 End: 03-19-2022 PTH RELATED PEPTIDE PTH RELATED PEPTIDE Lab Routine Malignant neoplasm of rectum (HCC) Lung nodules Stage 3a chronic kidney disease (HCC) Hypercalcemia Expected: 01/17/2022 (Approximate), Expires: 03/19/2022 [facility] Work Phone: Comment on above: Expected: 01/17/2022 (Approximate), Expi res: 03/19/2022 Start: 01-17-2022 End: 03-19-2022 VITAMIN D 25 HYDROXY VITAMIN D 25 HYDROXY Lab Routine Malignant neoplasm of rectum (HCC) Lung nodules Stage 3a chronic kidney disease (HCC) Hypercalcemia Expected: 01/17/2022 (Approximate), Expires: 03/19/2022 [facility] Work Phone: Comment on above: Expected: 01/17/2022 (Approximate), Expi res: 03/19/2022 Start: 01-17-2022 End: 03-19-2022 VITAMIN D1 25-DIHYDR VITAMIN D1 25-DIHYDR Lab Routine Malignant neoplasm of rectum (HCC) Lung nodules Stage 3a chronic kidney disease (HCC) Hypercalcemia Expected: 01/17/2022 (Approximate), Expires: 03/19/2022 [facility] Work Phone: Comment on above: Expected: 01/17/2022 (Approximate), Expi res: 03/19/2022 Start: 01-16-2022 End: 01-09-2023 Carcinoembryonic Ag [Mass/volume] in Serum or Plasma CEA BLD Lab Routine Malignant neoplasm of colon, unspecified part of colon (HCC) Expected: 01/16/2022 (Approximate), Expires: 01/09/2023 [facility] Work Phone: Comment on above: Expected: 01/16/2022 (Approximate), Expi res: 01/09/2023 Start: 01-16-2022 End: 01-09-2023 CBC W Auto Differential panel - Blood CBC + DIFF Lab Routine Malignant neoplasm of colon, unspecified part of colon (HCC) Expected: 01/16/2022 (Approximate), Expires: 01/09/2023 [facility] Work Phone: Comment on above: Expected: 01/16/2022 (Approximate), Expi res: 01/09/2023 Start: 01-16-2022 End: 01-09-2023 Comprehensive metabolic 2000 panel - Serum or Plasma COMP METABOLIC PANEL Lab Routine Malignant neoplasm of colon, unspecified part of colon (HCC) Expected: 01/16/2022 (Approximate), Expires: 01/09/2023 [facility] Work Phone: Comment on above: Expected: 01/16/2022 (Approximate), Expi res: 01/09/2023 Start: 11-30-2021 COVID-19 VACCINE (4 - Booster for Moderna series) COVID-19 VACCINE (4 - Booster for Moderna series) [facility] Start: 09-27-2021 COVID-19 VACCINE (4 - Booster for Moderna series) COVID-19 VACCINE (4 - Booster for Moderna series) [facility] Start: 09-24-2021 ADVANCE DIRECTIVE DISCUSSION ADVANCE DIRECTIVE DISCUSSION [facility] Start: 09-24-2021 DEPRESSION ASSESSMENT DEPRESSION ASSESSMENT [facility] Start: 06-16-2021 Adult depression screening assessment DEPRESSION SCREENING [facility] Start: 01-20-2019 RSV Vaccine (1 - 1-dose 75+ series) RSV Vaccine (1 - 1-dose 75+ series) [facility] Start: 11-25-2010 SHINGRIX VACCINE (1 of 2) SHINGRIX VACCINE (1 of 2) [facility] Start: 11-25-2010 SHINGRIX VACCINE (2 of 3) SHINGRIX VACCINE (2 of 3) [facility] Start: 01-20-2009 BONE DENSITY BONE DENSITY [facility] Start: 01-20-2009 Pneumococcal Vaccine: 65+ (1 of 1 - PCV) Pneumococcal Vaccine: 65+ (1 of 1 - PCV) [facility] Start: 01-20-2009 Pneumococcal Vaccine: 65+ Years (1 of 1 - PCV) Pneumococcal Vaccine: 65+ Years (1 of 1 - PCV) [facility] Start: 01-20-2009 PNEUMOVAX AGE 65 AND OVER WITH 5YR LOOKBACK (#1) PNEUMOVAX AGE 65 AND OVER WITH 5YR LOOKBACK (#1) [facility] Start: 2004 RSV Vaccine (1 - 1-dose 60+ series) RSV Vaccine (1 - 1-dose 60+ series) [facility] Start: 01-20-1963 Urine microalbumin profile [facility] Start: 01-20-1962 ANNUAL PCP TEAM CHRONIC DISEASE VISIT ANNUAL PCP TEAM CHRONIC DISEASE VISIT [facility] Start: 01-20-1962 Anxiety Screening Anxiety Screening [facility] Start: 01-20-1962 BP CONTROLLED (<130/80) BP CONTROLLED (<130/80) [facility] in Start: 01-20-1962 Depression Screening Depression Screening [facility] Start: 01-20-1962 HEPATITIS C SCREENING HEPATITIS C SCREENING [facility] Start: 01-20-1950 Pneumococcal Vaccine: 65+ (1 - PCV) Pneumococcal Vaccine: 65+ (1 - PCV) [facility] Start: 01-20-1950 PNEUMOCOCCAL: 65+ (1 - PCV) PNEUMOCOCCAL: 65+ (1 - PCV) [facility] Start: 1945 Medicare Annual Wellness (AWV) Medicare Annual Wellness (AWV) [facility] End: 01-12-2023 Carcinoembryonic Ag [Mass/volume] in Serum or Plasma CEA BLD Lab Routine Malignant neoplasm of rectum (HCC) Every 6 months for 3 Occurrences starting 01/12/2022 until 01/12/2023 [facility] Work Phone: Comment on above: Every 6 months for 3 Occurrences startin g 01/12/2022 until 01/12/2023 Carcinoembryonic Ag [Mass/volume] in Serum or Plasma CEA BLD Lab Routine Malignant neoplasm of rectum (HCC) 01/12/2022 11:[address] [facility] Work Phone: End: 01-12-2023 CBC W Auto Differential panel - Blood CBC + DIFF Lab Routine Stage 3a chronic kidney disease (HCC) Anemia, unspecified type Every 6 months for 3 Occurrences starting 01/12/2022 until 01/12/2023, [address] [facility] Work Phone: Comment on above: Every 6 months for 3 Occurrences startin g 01/12/2022 until 01/12/2023, 1 completed End: 01-12-2023 Comprehensive metabolic 2000 panel - Serum or Plasma COMP METABOLIC PANEL Lab Routine Malignant neoplasm of rectum (HCC) Stage 3a chronic kidney disease (HCC) Every 6 months for 3 Occurrences starting 01/12/2022 until 01/12/2023, [address] [facility] Work Phone: Comment on above: Every 6 months for 3 Occurrences startin g 01/12/2022 until 01/12/2023, 1 completed End: 06-22-2023 Dxa bone density study 1/> sites axial skel DXA-AXIAL SKELETON Radiology Routine Hypercalcemia Hyperparathyroidism (HCC) 1 Occurrences starting 05/23/2022 until 06/22/2023 [facility] Work Phone: Comment on above: 1 Occurrences starting 05/23/2022 until 06/22/2023 End: 06-22-2023 Dxa bone density study 1/>sites appendiclr skel DXA-FOREARM SKELETON Radiology Routine Hypercalcemia Hyperparathyroidism (HCC) 1 Occurrences starting 05/23/2022 until 06/22/2023 [facility] Work Phone: Comment on above: 1 Occurrences starting 05/23/2022 until 06/22/2023 Renal function 1999 panel - Serum or Plasma [facility] Renal function 1999 panel - Serum or Plasma [facility] End: 02-11-2023 Screening mammography bi 2-view breast inc cad OLY SCREENING Radiology Routine Encounter for screening mammogram for breast cancer Every 6 months for 3 Occurrences starting 01/12/2022 until 02/11/2023 [facility] Work Phone: Comment on above: Every 6 months for 3 Occurrences startin g 01/12/2022 until 02/11/2023 Urinalysis complete panel - Urine URINALYSIS, WITH MICROSCOPIC Lab Routine Chronic kidney disease (CKD) stage G3b/A1, moderately decreased glomerular filtration rate (GFR) between 30-44 mL/min/1.73 square meter and albuminuria creatinine ratio less than 30 mg/g (HCC) Renal hypertension Anemia, unspecified type Hyposmolality syndrome Ordered: 01/25/2023 [facility] Work Phone: Comment on above: Ordered: 01/25/2023 End: 09-28-2023 Us soft tissue head & neck real time imge docm US THYROID/PARATHYROID Radiology Routine Thyroid nodule 1 Occurrences starting 08/29/2022 until 09/28/2023 [facility] Work Phone: Comment on above: 1 Occurrences starting 08/29/2022 until 09/28/2023 [facility] Immunizations Immunization Date Immunization Notes Care Provider Fa cility 09-27-2023 COVID-19 vaccine, ag e 12+ yr (MODERNA) Arnol Daugherty MD Work Phone: [facility] 09-28-2022 COVID-19 mRNA Bivale nt Booster (Moderna) [facility] 08-02-2021 COVID-19 vaccine, fu ll dose (MODERNA) Arnol Daugherty MD Work Phone: [facility] 12-07-2020 COVID-19 vaccine, fu ll dose (MODERNA) Arnol Daugherty MD Work Phone: [facility] 11-11-2020 COVID-19 vaccine, fu ll dose (MODERNA) Arnol Daugherty MD Work Phone: [facility] 09-30-2010 zoster vaccine, live Arnol hayes MD Work Phone: [facility] Payers Date Payer Category Payer Self-pay 2020 Private Health Insurance [employer] A ETNA MEDICARE SUPPLEMENT [id number] 2020-Present [phone] [address] [address] [place] [address] Indemnity [id number] 2020 Private Health Insurance [id number] 2010 Medicare MEDICARE MEDICAR E A AND B [id number] 2010-Present [phone] [place] [address] Medicare [id number] 2010 Medicare [id number] 1959 Medicare [id number] 1959 Private Health Insurance I [id number] 1959 Self-pay [id number] 1944 Unknown [id number] 1944 Unknown [id number] 1944 Unknown [id number] 1944 Unknown [id number] [id number] 1944 Unknown [id number] Medicare Medicare [id number] Unknown [id number] Unknown [id number] Unknown [id number] Unknown [employer] [id number] Unknown [id number] Social History Date Type Detail Facility Start: 07-22-2013 End: 03-25-2024 Tobacco smoking status NHIS Never smoked tobacco [facility] Start: 07-22-2013 End: 07-24-2023 Tobacco use and exposure Smokeless tobacco non-user [facility] Start: 12-15-2020 End: 07-31-2024 Alcohol intake Current non-drinker of alcohol (finding) [facility] Start: 1945 Sex Assigned At Female [facility] Start: 01-02-2022 End: 07-27-2022 Exposure to SARS-CoV-2 (event) Not sure [facility] Start: 05-23-2022 End: 02-25-2024 Sex Assigned At [facility] Start: 05-23-2022 End: 02-25-2024 History of Social function [facility] Adult Depression Screening Assessment 0 [facility] Start: 05-01-2019 Gender identity Identifies as female gender (finding) [facility] Start: 05-01-2019 Sexual orientation Heterosexual (finding) [facility] Start: 02-26-2024 End: 10-09-2024 Alcoholic beverage intake Lifetime non-drinker (finding) [facility] Do you belong to any clubs or organizations such as rastafari groups, unions, fraternal or athletic groups, or [...] Start: 10-01-2024 End: 02-28-2025 Sex Female (finding) [facility] Medical Equipment Procedure Code Equipment Code Equipment Origin al Text Equipment Identifier Dates Stent Uret 7fr 2 6cm W/O Gw Inl - [id number] Start: 07-20-2014 Clinical Notes 01-12-2022 to [...] 25 MG tablet documented in this encounter [facility] 09-01-2024 Nurse Note Patient Identification confirmed: yes. Injection given and documented on MAR per provider order. Kamilah Yip MA [facility] 09-01-2024 Nurse Note Patient Identification confirmed: yes. Injection given and documented on MAR per provider order. Kamilah Yip MA documented in this encounter [facility] 08-05-2024 Note HNO ID: [id number] Author: LOAN ELISE MA Service: ? Author Type: Character Actress Type: Progress Notes Filed: 08/05/2024 10:42 Note Text: Patient Identification confirmed: yes. Injection given and documented on MAR per provider order. Loan Elise MA [facility] 08-05-2024 History of Present illness Narrative Patient Identification confirmed: yes. Injection given and documented on MAR per provider order. Loan Elise MA documented in this encounter [facility] 08-04-2024 Telephone encounter Note Images from the [...] MD Sent: 07/31/2024 7:27 PM EST To: [facility] [place] Triage Pool Iron is ok, but she needs B12 shots. Q 4weeks. [facility] 08-04-2024 Miscellaneous Notes Images from the original note were not included. Put a note in patient's appt notes to schedule for this at next appt: Melania Maria RN [facility] When patient comes in for B12 injection [...] MD Sent: 07/31/2024 7:27 PM EST To: [facility] [place] Triage Pool Iron is ok, but she needs B12 shots. Q 4weeks. Images from the original note were not included. documented in this encounter [facility] 07-31-2024 Telephone encounter Note Images from the original note were not included. [facility] 07-31-2024 Instructions Michelle Mancilla - 07/31/2024 10:17 AM EST Triage to call with today's lab results Continue following with endocrinology (Dr. Humphrey) for hyperparathyroidism Continue following with nephrology (Dr. Bowen) RTC in 12 months - labs preceding week, re-scan if indicated Will be ordered labs to address anemia documented in this encounter [facility] 07-31-2024 History of Present illness Narrative Images from the original note were not included. NAME: Aleksander Barger [facility] NO.: [id number] DATE OF SERVICE: July 31, 2024 ([facility]) Some elements in this clinic note that [...] 2014. Did receive monthly B12 IM from 5956-1030 with no improvement. Will monitor with labs [...] metastatic or recurrent on these unenhanced images [id number] - She also has a history of anemia and was on B12 supplements from 4783-2284, however it was felt it had little [...] completed subtotal colectomy and proctosigmoidectomy pathology notes [id number] disease (2 of 15 lymph nodes involved)- [...] January 25, 2023: Sees Dr. Bowen at [facility] and managing chronic kidney disease. Not sure [...] make sure to send results to her Logistics Team Leader also. Updated Visit, January 26, 2022: Called regarding hypercalcemia which is a chronic problem for her. probably associated with renal failure. Will send her to see nephrology. She also has a salivary stone - I recommended that she see Dr. Graf. Updated Visit, January 12, 2022: Had mammograms in [place] last week which were clear. 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 Arnol Daugherty MD, CPE Hematology and Oncology Services Provided at: [facility], [place], [place] Scribe Attestation: This note was scribed [...] Dr. Logan Aden documented in this encounter [facility] 07-31-2024 Note HNO ID: [id number] Author: ARNOL DAUGHERTY MD Service: ? Author Type: Physician Type: Progress Notes Filed: 07/31/2024 19:29 Note Text: NAME: Aleksander Barger [facility] NO.: [id number] DATE OF SERVICE: July 31, 2024 (Michelle) Some elements in this clinic note that are critical to medical decision making have been carefully reviewed and included from a prior clinic note dated: August 02, 2023 (Michelle) Referring Provider: Dr. Stock Additional Clinicians involved in Aleksander Barger's care: Logna Gomez Assessment: (N18.32) Chronic renal failure, stage [...] 2014. Did receive monthly B12 IM from 0691-0367 with no improvement. Will monitor with labs [...] metastatic or recurrent on these unenhanced images [id number] - She also has a history of anemia and was on B12 supplements from 3716-2348, however it was felt it had little benefit and these injections were stopped. She does have Stage 3 chronic kidney disease. 05/2014 - Colonoscopy notes adenocarcinoma with (more content not included)... [facility] 07-15-2024 History of Present illness Narrative Associated [...] List Items Addressed This Visit Essential hypertension ([facility]) BP okay today and monitor PRN. Hyperparathyroidism ([facility]) Follow with endo. Stage 3b chronic kidney disease (CKD) ([facility]) Renal function stable and follow with nephrology. Thoracic aortic aneurysm without rupture ([facility]) Followed by specialists. Medicare annual wellness visit, subsequent - Primary Will have labs drawn at specialists. Discussed proper diet and regular aerobic exercise. Need aerobic exercise 5-6 days a week for 30 minutes at a time. Smaller portions and limit total calories. Tetanus every 10 years. Advised not to smoke. Discussed daily Aspirin therapy. documented in this encounter [facility] 08-07-2023 Evaluation note Encounter Date Diagnosis Assessment [...] E83.52) Patient follows with endocrinology clinic at [facility]. Urine study last year showed no M [...] patient to follow low animal protein diet [employer] Other [id number] Instructions* Patient Instructions* Sangeeta Izaguirre - 08/02/2023 2:58 PM EST Continue following with Dr. Adams for hyperparathyroidism Continue following with Nephrology RTC in 12 months - labs preceding week, re-scan if indicated. Will be ordered labs to address anemia [facility] History of Present illness Narrative* Arnol Daugherty MD - 08/02/2023 2:00 PM EST Images from the original note were not included. NAME: Aleksander Barger CLINIC NO.: [id number] DATE OF SERVICE: August 02, 2023 (Michelle) [...] 2014. Did receive monthly B12 IM from 7088-6153 with no improvement. Will monitor with labs [...] January 25, 2023: Sees Dr. Bowen at [facility] and managing chronic kidney disease. Not sure [...] make sure to send results to her Logistics Team Leader also. Updated Visit, January 26, 2022: Called regarding hypercalcemia which is a chronic problem for her. probably associated with renal failure. Will send her to see nephrology. She also has a salivary stone - I recommended that she see Dr. Graf. Updated Visit, January 12, 2022: Had mammograms in [place] last week which were clear. 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 Arnol Daugherty MD, CPE Hematology and Oncology Services Provided at: [place], [place] Scribe Attestation: This note was scribed by Sangeeta Izaguirre on August 02, 2023 under the direction and supervision of Dr. Arnol Daugehrty. I attest that all of the information documented is correct to the best of my knowledge. Provider Attestation: I, Arnol Daugherty MD, attest that all information documented by the above scribe is correct, and was supervised by me and under my direction. CC: Dr. Logan Aden documented in this encounterPromedica Bay Park Hospital10-11-2023 Miscellaneous Notes* Telephone Encounter - Facundo Llamas [...] preceding week, re-scan if indicated. Referral to Neighborhood Worker PSS: this referral is from 01/25/23. I do not see where it was ever sent? Facundo Llamas, RN documented in this encounterPromedica Bay Park Hospital08-28-2023 Miscellaneous Notes* Telephone Encounter - Ace Savage [...] refills. Ace Savage APRN.PILI documented in this encounterPromedica Bay Park Hospital05-15-2023 Miscellaneous Notes* Telephone Encounter - Ghazala Humphrey MD - 02/05/2023 11:54 AM EDT I sent a Flexion message with a request for a notification if the message is not read. Ghazala Humphrey MD, RONI documented in this encounterPromedica Bay Park Hospital05-04-2023 Instructions* Patient Instructions* Arnol Daugherty MD - 01/25/2023 3:36 PM EDT ENT C/S local please - Dr. Graf Continue following with Nephrology - needs uric acid addressed as well. - will defer treatment. RTC in 6 months - labs preceding week, re-scan if indicated. Referral to Neighborhood Worker documented in this encounterPromedica Bay Park Hospital05-04-2023 History of Present illness Narrative* Arnol Daugherty MD - 01/25/2023 2:45 PM EDT Images from the original note were not included. NAME: Aleksander Barger [facility] NO.: [id number] DATE OF SERVICE: January 25, 2023 (Michelle) [...] 2014. Did receive monthly B12 IM from 4819-9140 with no improvement. Will monitor with labs [...] preceding week, re-scan if indicated. Referral to Neighborhood Worker HPI: Updated Visit, January 25, 2023: Sees Dr. Bowen at [facility] and managing chronic kidney disease. Not sure [...] make sure to send results to her Logistics Team Leader also. Updated Visit, January 26, 2022: Called regarding hypercalcemia which is a chronic problem for her. probably associated with renal failure. Will send her to see nephrology. She also has a salivary stone - I recommended that she see Dr. Graf. Updated Visit, January 12, 2022: Had mammograms in [place] last week which were clear. Otherwise doing [...] negative for malignancy) 08/2013 : referred to [facility] main and completed subtotal colectomy and proctosigmoidectomy pathology notes [id number] disease ( 2 of 15 lymph nodes [...] anemia and was on B12 supplements from 5996-9120, however it was felt it had little [...] 3b (HCC) 02/23/2022 Diverticulitis Fracture left arm Guillain-Morristown syndrome (HCC) History of stomach ulcers Hypercalcemia [...] Father Ischemic Heart Disease Father of massive ID at 67 I spent a total of 40 minutes on the date of the service which included preparing to see the patient, [id number] patient care, completing clinical documentation, performing a medically appropriate examination, counseling and educating the patient/family/caregiver, ordering medications, tests, or p rocedures, communicating with other HCPs (not separately reported) and care coordination (not separately reported). Arnol Daugherty MD, CPE Hematology and Oncology Services Provided at: [place], [place] CC: Dr. Logan Aden documented in this encounterPromedica Bay Park Hospital04-03-2023 Evaluation note* Encounter Date Diagnosis Assessment Notes [...] or fevers Dec, Bronchitis (ICD-10 - J40) Preventsys Other 02-01-2023 Miscellaneous Notes* Telephone Encounter - Ghazala Humphrey MD - 10/25/2022 6:58 PM EST I called patient, not available. I left a message to check Flexion message. I sent a Flexion message with a request for a notification [...] Ghazala Humphrey MD, MBA documented in this encounterPromedica Bay Park Hospital12-06-2022 Instructions* Patient Instructions* Ghazala Humphrey MD - [...] as soon as possible. documented in this encounterPromedica Bay Park Hospital12-06-2022 History of Present illness Narrative* Ghazala Humphrey MD - 08/29/2022 10:57 AM EST HISTORY OF PRESENT ILLNESS: Patient is seen today in follow up for hypercalcemia, hyperparathyroidism and osteopenia. Patient is taking vitamin D 2,000 IU daily. She is not taking calcium supplement. Patient joined a [employer] and started exercising (chair and balance exercising), [...] Loss: No Seizures: No documented in this encounterPromedica Bay Park Hospital12-05-2022 Miscellaneous Notes* Telephone Encounter - Sheron Duke [facility] - 08/28/2022 2:[address] [...] 9:[address] Kristin prieto [phone] spoke with Sho. She states their office has been short staffedand are behind on faxes. She took all patient information and will be checking faxes and reviewing records and will call patient to schedule. She has asked us to call back later this week regarding status of this referral. Sheron Duke Pss * Telephone Encounter - Nargis Smith [facility] - 07/28/2022 8:52 AM EDT Records faxed to Dr. Foster. * Telephone Encounter - Felicity Thomas - 07/27/2022 3:51 PM EDT Nephrology C/S local please Maile/Jovany: Can you please refer patient to Dr. Jones's office? Thanks! Felicity Thomas documented in this encounterPromedica Bay Park Hospital11-03-2022 Instructions* Patient Instructions* Arnlo Daugherty MD - 07/27/2022 11:53 AM EDT Nephrology C/S local please RTC in 6 months - labs preceding week documented in this encounterPromedica Bay Park Hospital11-03-2022 History of Present illness Narrative* Arnol Daugherty MD - 07/27/2022 11:30 AM EDT Images from the original note were not included. NAME: Charbel Aleksander CLINIC NO.: [id number] DATE OF SERVICE: July 27, 2022 (Michelle) [...] 2014. Did receive monthly B12 IM from 6712-1755 with no improvement. 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 Updated Visit, January 26, 2022: Called regarding hypercalcemia which is a chronic problem for her. probably associated with renal failure. Will send her to see nephrology. She also has a salivary stone - I recommended that she see Dr. Graf. Updated Visit, January 12, 2022: Had mammograms in [place] last week which were clear. Otherwise doing [...] completed subtotal colectomy and proctosigmoidectomy pathology notes [id number] disease ( 2 of 15 lymph nodes [...] anemia and was on B12 supplements from 7973-6434, however it was felt it had little [...] 3b (HCC) 02/23/2022 Diverticulitis Fracture left arm Guillain-Morristown syndrome (HCC) History of stomach ulcers Hypercalcemia [...] Father Ischemic Heart Disease Father of massive ID at 67 I spent a total of 30 minutes on the date of the service which included preparing to see the patient, [id number] patient care, completing clinical documentation, performing a medically appropriate examination, counseling and educating the patient/family/caregiver, ordering medications, tests, or p rocedures, communicating with other HCPs (not separately reported) and care coordination (not separately reported). Arnol Daugherty MD, CPE Hematology and Oncology Services Provided at: [place], [place] CC: [address] [phone] [address] Logan Gomez documented in this encounterPromedica Bay Park Hospital11-02-2022 History of Present illness Narrative* Mallory Stover, [...] contrast PATIENT DISCHARGED TO: Ambulatory patient, left [place] department area. A Diagnostic radioactive procedure has taken place, with no further precautions necessary other than routine body substance precautions. More information regarding radiation safety can be found usingthis link: [email or web address] SIGNATURE: RT Eran(R) PATIENT NAME: Aleksander Barger DATE: July 26, 2022 TIME: 1:38 PM PAGER/CONTACT #: documented in this encounterPromedica Bay Park Hospital10-26-2022 History of Present illness Narrative* Mallory Stover [...] 19, 2022 10:57 AM documented in this encounterPromedica Bay Park Hospital10-21-2022 Miscellaneous Notes* Telephone Encounter - Arnol Duagherty MD - 07/14/2022 5:37 PM EDT Thanks [...] you agree Triage: Please fax order to [phone] documented in this encounterPromedica Bay Park Hospital10-11-2022 History of Present illness Narrative* Arash Cavazos MD - 07/04/2022 4:00 PM EDT Images from the original note were not included. [facility] Urological and Kidney Eads NEPHROLOGY FOLLOW UP NOTE Patient Name: Aleksander [...] 3b (HCC) 02/23/2022 Diverticulitis Fracture left arm Guillain-Morristown syndrome (HCC) History of stomach ulcers Hypercalcemia [...] Father Ischemic Heart Disease Father of massive ID at 67 SOCIAL HISTORY: Social History Tobacco [...] the influenza vaccine because it caused Guillain- [place]rist[place] syndrome before. She took the Moderna CoVID-19 [...] 02/28/2022 6.0 5.0 - 8.0 Final Specific Bird In Hand, Ur Date Value Ref Range Status 02/28/2022 [...] NO SCINTIGRAPHIC EVIDENCE OF URINARY TRACT OBSTRUCTION. Corporate Tutor: [facility] Transcribe Date/Time: Sep 29 2014 2:51P [...] IMPRESSION: MILD RIGHT AND MILD-MODERATE LEFT HYDRONEPHROSIS. Corporate Tutor: [facility] Transcribe Date/Time: Jul 18 2014 1:41P Dictated by : RUEL THACKER DO This examination was interpreted and the report reviewed and electronically signed by: GREGORY HODGE MD On Jul 18 2014 1:58PM 04/25/2022 3:21 PM - LNU 1055 - LNU 1055 - US KIDNEY/BLADDER / IMPRESSION: Mild left hydronephrosis. Corporate Tutor: MASHA Transcribe Date/Time: Apr 25 2022 3:13P [...] CC: Logan Gomez MD documented in this encounterPromedica Bay Park Hospital10-11-2022 Evaluation note* Diagnosis Chronic renal failure, stage 3a (HCC)- Primary Hydronephrosis of left kidney Hydronephrosis Renal cyst Unspecified congenital cystic kidney disease Essential hypertension Unspecified essential hypertension documented in this encounter [facility]08-31-2022 History of Present illness Narrative* Анна Still, [...] 24, 2022 2:10 PM documented in this encounterPromedica Bay Park Hospital08-30-2022 History of Present illness Narrative* Ghazala Humphrey [...] 3b (HCC) 02/23/2022 Diverticulitis Fracture left arm Guillain-Morristown syndrome (HCC) History of stomach ulcers Hypercalcemia [...] Father Ischemic Heart Disease Father of massive ID at 67 Social History Tobacco Use Smoking [...] No Heat Intolerance?: No documented in this encounterPromedica Bay Park Hospital08-03-2022 Miscellaneous Notes* Telephone Encounter - Arash Cavazos MD - 04/26/2022 3:36 PM EDT Images from the original note were not included. I gave the patient the result of the kidney and bladder ultrasound and the renal vascular ultrasound. [facility] Arash Junior MD Staff Nephrology and Hypertension [facility] Pager# [phone] documented in this encounterPromedica Bay Park Hospital08-02-2022 History of Present illness Narrative* RT Jamari(R) [...] 25, 2022 12:12 PM documented in this encounterPromedica Bay Park Hospital07-07-2022 Miscellaneous Notes* Telephone Encounter - Arash Cavazos MD - 03/30/2022 3:43 PM EDT Images from the original note were not included. I left both the patient and also her daughter phone messages with lab results. The patient's renal function and serum calcium improved after treatment with IV fluids and denosumab. The serum sodium is normal. [facility] Arash Junior MD Staff Nephrology and Hypertension [facility] Pager# [phone] documented in this encounterPromedica Bay Park Hospital06-30-2022 Miscellaneous Notes* Telephone Encounter - Felicity Thomas [...] this afternoon or tomorrow? documented in this encounterPromedica Bay Park Hospital06-30-2022 Miscellaneous Notes* Telephone Encounter - Amaya Gale [...] EDT To: Willow Mauro, RN, MD Aleksander Hernández - your sodium is near normal now. However, your calcium is higher and your kidney function yenifer little worse. - I will forward this note to your bottom stainer too. Happy to arrange for hydration if you like. Dr. Alvin Conrad documented in this encounterPromedica Bay Park Hospital06-30-2022 Miscellaneous Notes* Telephone Encounter - Arash Cavazos MD - 03/23/2022 12:16 PM EDT Images from the original note were not included. I returned the patient's call. I instructed her to continue to hold off on Ure- NA, stop taking lisinopril, increase the amlodipine to 5 mg by mouth twice a day (I sent the prescription to [facility] in [place], [place]), and increase the fluid restriction to 1.5 liters a day. I communicated with Dr. Alvin Daugherty and he will treat the patient in the infusion center with IV hydration and denosumab. Will repeat labs next week. [facility] Kid[facility] Arash Junior MD Staff Nephrology and Hypertension [facility] Pager# [phone] documented in this encounterPromedica Bay Park Hospital06-29-2022 History of Present illness Narrative* Arnol Daugherty MD - 03/22/2022 10:35 AM EDT Images from the original note were not included. NAME: Aleksander Barger CLINIC NO.: [id number] DATE OF SERVICE: March 22, 2022 Some [...] 2014. Did receive monthly B12 IM from 2569-7602 with no improvement. 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 Updated Visit, January 26, 2022: Called regarding hypercalcemia which is a chronic problem for her. probably associated with renal failure. Will send her to see nephrology. She also has a salivary stone - I recommended that she see Dr. Graf. Updated Visit, January 12, 2022: Had mammograms in [place] last week which were clear. Otherwise doing [...] completed subtotal colectomy and proctosigmoidectomy pathology notes [id number] disease ( 2 of 15 lymph nodes [...] anemia and was on B12 supplements from 3365-6830, however it was felt it had little [...] 3b (HCC) 02/23/2022 Diverticulitis Fracture left arm Guillain-Morristown syndrome (HCC) History of stomach ulcers Hypercalcemia [...] Father Ischemic Heart Disease Father of massive ID at 67 I spent a total of 20 minutes on the date of the service which included preparing to see the patient, [id number] patient care, completing clinical documentation, performing a medically appropriate examination, counseling and educating the patient/family/caregiver, ordering medications, tests, or p rocedures, communicating with other HCPs (not separately reported) and care coordination (not separately reported). Arnol Daugherty MD, CPE Hematology and Oncology Services Provided at: [place], [place] CC: [address] [phone] [address] Logan Gomez documented in this encounterPromedica Bay Park Hospital06-28-2022 Miscellaneous Notes* Telephone Encounter - Danielle Isaacs [...] mares. Pt states she has been to bottom stainer he referred her to and his plan isn't working and she really needs appt with Dr Doherty to discuss things. ELANA: Ok to schedule pt to see you? 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 Anemia in stage 3b chronic kidney disease 202107/04/2022 documented as of this encounter (statuses as of 07/14/2022) [facility]06-[facility] of Past illness Narrative* Problem Noted Date Resolved Date 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 Anemia in stage 3b chronic kidney disease 202107/04/2022 documented as of this encounter (statuses as of 07/27/2022) [facility] of Past illness Narrative* Problem Noted Date Resolved Date 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 Anemia in stage 3b chronic kidney disease 202107/04/2022 documented as of this encounter (statuses as of 08/29/2022) [facility] of Past illness Narrative* Problem Noted Date Resolved Date 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 Anemia in stage 3b chronic kidney disease 202107/04/2022 documented as of this encounter (statuses as of 08/29/2022) [facility] of Past illness Narrative* Problem Noted Date Resolved Date 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 Anemia in stage 3b chronic kidney disease 202107/04/2022 documented as of this encounter (statuses as of 10/26/2022) [facility] of Past illness Narrative* Problem Noted Date Resolved Date 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 Anemia in stage 3b chronic kidney disease 202107/04/2022 documented as of this encounter (statuses as of 01/25/2023) [facility] of [facility] illness Narrative* Problem Noted Date Resolved Date 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 Anemia in stage 3b chronic kidney disease 202107/04/2022 documented as of this encounter (statuses as of 01/27/2023) [facility] of [facility] illness Narrative* Problem Noted Date Resolved Date 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 Anemia in stage 3b chronic kidney disease 202107/04/2022 documented as of this encounter (statuses as of 02/05/2023) [facility] of [facility] illness Narrative* Problem Noted Date Diagnosed Date Resolved Date 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 Anemia in stage 3b chronic kidney disease 02/23/2022 07/04/2022 documented as of this encounter (statuses as of 05/04/2023) [facility] Narrative* Problem Noted Date Diagnosed Date Resolved Date 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 Anemia in stage 3b chronic kidney disease 02/23/2022 07/04/2022 documented as of this encounter (statuses as of 05/04/2023) [facility] of [facility] illness Narrative* Problem Noted Date Diagnosed Date Resolved Date 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 Anemia in stage 3b chronic kidney disease 02/23/2022 07/04/2022 documented as of this encounter (statuses as of 05/21/2023) [facility] Narrative* Problem Noted Date Diagnosed Date Resolved Date 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 Anemia in stage 3b chronic k idney disease (HCC) 02/23/2022 07/04/2022 documented as of this encounter (statuses as of 07/05/2023) [facility] of [facility] illness Narrative* Problem Noted Date Diagnosed Date Resolved Date 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 NAME: Aleksander Barger CLINIC NO.: [id number] DATE OF SERVICE: January 26, 2022 Some [...] 2014. Did receive monthly B12 IM from 1284-1864 with no improvement. Will monitor with labs [...] Visit, January 12, 2022: Had mammograms in [place] last week which were clear. Otherwise doing [...] Time Spent: 11 minutes Arnol Daugherty MD, [place], [place] CC: Diana Constantinokylie [address] [place] [phone] [address] Logan Gomez documented in this encounterPromedica Bay Park Hospital05-03-2022 Miscellaneous Notes* Telephone Encounter - Felicity Thomas - 01/24/2022 4:55 PM EDT Patient has been rescheduled to , 01/26. Patient notified and states she saw her lab results [place] [employer] [place]. Felicity Thomas * Telephone Encounter - Spring Hamilton Sec - 01/24/2022 1:34 PM EDT Please call patient and r/s phone visit. documented in this encounterPromedica Bay Park Hospital05-03-2022 Evaluation note* Diagnosis Hypercalcemia- Primary Stage 3a chronic kidney disease (HCC) Malignant neoplasm of rectum (HCC) Malignant neoplasm of rectum documented in this encounter [facility] History of Present illness Narrative* Arnol Daugherty MD - 01/23/2022 12:06 PM EDT Cancelled - left a message documented in this encounterPromedica Bay Park Hospital04-28-2022 Nurse Note* Kamilah Yip - 01/19/2022 9:16 AM EDT Clinical questionnaires incomplete due to Patient was roomed by provider. Phone visit. Kamilah Yip documented in this encounterPromedica Bay Park Hospital04-22-2022 Miscellaneous Notes* Telephone Encounter - Felicity Thomas [...] calcium next week please? documented in this encounterPromedica Bay Park Hospital04-21-2022 History of Present illness Narrative* Arnol Daugherty MD - 01/12/2022 10:42 AM EDT Images from the original note were not included. NAME: Aleksander Barger CLINIC NO.: [id number] DATE OF SERVICE: January 12, 2022 Some [...] 2014. Did receive monthly B12 IM from 7094-6425 with no improvement. Will monitor with labs [...] Visit, January 12, 2022: Had mammograms in [place] last week which were clear. Otherwise doing [...] negative for malignancy) 08/2013 : referred to [facility] main and completed subtotal colectomy and proctosigmoidectomy pathology notes [id number] disease ( 2 of 15 lymph nodes [...] anemia and was on B12 supplements from 4492-4185, however it was felt it had little [...] ulcer Bowel disease Diverticulitis Fracture left arm Guillain-Morristown syndrome (HCC) History of stomach ulcers Hypertension [...] Father Ischemic Heart Disease Father of massive ID at 67 Arnol Daugherty MD, [place], [place] CC: Diana Stock [address] [place] [phone] [address] Logan Gomez documented in this encounterPromedica Bay Park HospitalEvalutidalhealth [place] note* Diagnosis Malignant neoplasm of colon, unspecified part of colon (HCC)- Primary [facility] Diagnosis Malignant neoplasm of rectum (HCC)- Primary Malignant neoplasm of rectum Lung nodules Other nonspecific abnormal finding of lung field Encounter for screening mammogram for breast cancer Stage 3a chronic kidney disease (HCC) Anemia, unspecified type Hypercalcemia [facility]* Diagnosis Chronic renal failure, stage 3b (HCC)- Primary Malignant neoplasm of colon, unspecified part of colon (HCC) Lung nodules Other nonspecific abnormal finding of lung field documented in this encounter [facility]Eval[facility]* Diagnosis RAMEZ (acute kidney injury) (HCC)- Primary Acute kidney failure, unspecified Hypercalcemia Hyponatremia Hyposmolality and/or hyponatremia [facility]* Diagnosis Chronic renal failure, stage 3b (HCC)- Primary Hypercalcemia Hydronephrosis of left kidney Hydronephrosis Other vitamin B12 deficiency anemia Malignant neoplasm of colon, unspecified part of colon (HCC) Malignant neoplasm of rectum (HCC) Malignant neoplasm of rectum documented in this encounter [facility] [facility] Diagnosis Chronic renal failure, stage 3b (HCC)- Primary Hypercalcemia [facility] Diagnosis Hyperparathyroidism (HCC)- Primary Hyperparathyroidism, unspecified Hypercalcemia Goiter Goiter, unspecified [facility] Diagnosis Salivary stones- Primary Sialolithiasis [facility] Diagnosis Malignant neoplasm of colon, unspecified part of colon (HCC)- Primary Stage 3b chronic kidney disease (HCC) Hypercalcemia Malignant neoplasm of rectum (HCC) Malignant neoplasm of rectum Anemia, unspecified type [facility] Diagnosis Hyperparathyroidism (HCC)- Primary Hyperparathyroidism, unspecified Thyroid nodule Nontoxic uninodular goiter Hypercalcemia Osteopenia of multiple sites [facility] Diagnosis Nontoxic multinodular goiter- Primary Nontoxic single thyroid nodule Nontoxic uninodular goiter documented in this encounter [facility] note* Diagnosis Chronic kidney disease (CKD) stage [...] Hyposmolality and/or hyponatremia [facility] Diagnosis Hypercalcemia- Primary Hyperparathyroid (HCC) 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cer Personal history of malignant neoplasm of large intestine Functional diarrhea Stage 3b chronic kidney disease (HCC) documented [facility] Diagnosis Hypercalcemia Hyperparathyroidism (HCC) Hyperparathyroidism, unspecified documented in this encounter [facility] note* Diagnosis Chronic renal failure, stage 3b (HCC) documented [facility] Diagnosis Thyroid nodule Nontoxic uninodular goiter documented [facility] this [facility] noteNo assessment information availablePomerene [facility] Work Phone: Evaluation note* Diagnosis 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cer- Primary Personal history of malignant neoplasm of large intestine Hyperparathyroid (HCC) Hypercalcemia Stage 3b chronic kidney disease (HCC) Anemia, unspecified type documented in this encounter [facility] note* Diagnosis Onset Date Resolution Status Abscess or cellulitis of scalp acute [facility] Work Phone: Evaluation note* Diagnosis Onset Date Resolution Status Abscess or cellulitis of scalp acute Anemia acute Chronic kidney disease, stage 3b acute Hypercalcemia acute Hypertensive nephropathy acu te Hyperuricemia acute Hyponatremia acute [facility] Work Phone: Evaluation note* Diagnosis Cervicalgia documented [facility] this [facility] Diagnosis Malignant neoplasm of colon, unspecified part of colon (HCC) Lung nodules Other nonspecific abnormal finding of lung field Malignant neoplasm of rectum (HCC) Malignant neoplasm of rectum Stage 3a chronic kidney disease (HCC) Anemia, unspecified type [facility] Diagnosis Lung nodules Other nonspecific abnormal finding of lung field Other ascites Malignant neoplasm of rectum (HCC) Malignant neoplasm of rectum documented [facility] Diagnosis Abscess, scalp- Primary Cellulitis and abscess of other specified site Essential hypertension (CMS/HCC) Unspecified essential hypertension Stage 3b chronic kidney disease (CKD) (CMS/HCC) Medicare annual wellness visit, subsequent- Primary Essential hypertension (CMS/HCC) Unspecified essential hypertension Stage 3b chronic kidney disease (CKD) (CMS/HCC) Aneurysm of ascending aorta without rupture (CMS/HCC) Hyperparathyroidism ([facility]/HCC) Hyperparathyroidism, unspecified documented in this encounter [facility]* Diagnosis 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cer- Primary Personal history of malignant neoplasm of large intestine Stage 3b chronic kidney disease (HCC) Megaloblastic anemia due to vitamin B12 deficiency Other vitamin B12 deficiency anemia [facility] Diagnosis Megaloblastic anemia due to vitamin B12 deficiency- Primary Other vitamin B12 deficiency anemia Other vitamin B12 deficiency anemia Malignant neoplasm of colon, unspecified part of colon (HCC) Hydronephrosis of left kidney Hydronephrosis Hypercalcemia [facility] Diagnosis Essential (primary) hypertension (CMS/HCC) Unspecified essential hypertension documented in this encounter [facility]* Diagnosis Megaloblastic anemia due to vitamin B12 deficiency- Primary Other vitamin B12 deficiency anemia Other vitamin B12 deficiency anemia Malignant neoplasm of colon, unspecified part of colon (HCC) Hydronephrosis of left kidney Hydronephrosis Hypercalcemia documented [facility] this [facility] Diagnosis Onset Date Resolution Status Admit Date Anemia acute Ciera 8th, 2 025 10:20am Chronic kidney disease, stage 3b acu te October 01, 2024 10:20am Hypercalcemia acute September 10:20am Hypertensive nephropathy acute October 01, 2024 10:20am Hyperuricemia acute September 10:20am Hypomagnesemia acute September 10:20am Hyponatremia acute October 01, 2024 10:20am [facility] Work Phone: Evaluation note* Diagnosis Abscess, [...] Hospitalization History possible bowel obstructi on 03/12 Preventsys Other Reason for referral (narrative)* Diagnostic Procedure Only (Routine) - Pending Review Specialty Diagnoses / Procedures Referred By Carline t Referred To Contact BR IMAGING Diagnoses Encounter for screening mammogram for breast cancer Procedures OLY SCREENING SCREENING MAMMOGRAPHY BI 2-VIEW BREAST INC Arnol Haro MD [address] [place] [address] [place] [address] [facility] [address] [place] [id number] Referral ID Status Reason Start Date Expiration Date Visits Requested Visits Authorized [id number] Pending Review Auto-Generat ed Referral 01/12/2022 02/11/2023 1 1 [facility] for referral (narrative)* Diagnostic Procedure Only (Routine) - Authorized Specialty Diagnoses / Procedures Referred By Contac t Referred To Contact XR IMAGING Diagnoses Hypercalcemia Hyperparathyroidism (HCC) Procedures DXA-FOREARM SKELETON DXA BONE DENSITY STUDY 1/>SITES Ghazala Mckay MD [address] [place] [address] Xr Imaging Referral ID Status Reason Start Date Expiration Date Visits Requested Visits Authorized [id number] Authorized Auto-Generat ed Referral 05/23/2022 06/22/2023 1 1 T [facility] for referral (narrative)* Diagnostic Procedure Only (Routine) - Authorized Specialty Diagnoses / Procedures Referred By Contac t Referred To Contact US IMAGING Diagnoses Thyroid nodule Procedures US THYROID/PARATHYROID US SOFT TISSUE HEAD & NECK REAL TIME IMGE Ghazala Cabrales MD [address] [place] [address] Us Imaging Referral ID Status Reason Start Date Expiration Date Visits Requested Visits Authorized [id number] Authorized Auto-Generat ed Referral 08/29/2022 09/28/2023 1 1 [facility] for referral (narrative)* Diagnostic Procedure Only (Routine) - Closed Specialty Diagnoses / Procedures Referred By Contac t Referred To Contact XR IMAGING Diagnoses Hypercalcemia Hyperparathyroidism (HCC) Procedures DXA-FOREARM SKELETON DXA BONE DENSITY STUDY 1/>SITES Ghazala Mckay MD [address] [place] [address] Xr Imaging Referral ID Status Reason Start Date Expiration Date V isits Requested Visits Authorized [id number] Closed Auto-Generate d Referral 05/23/2022 06/22/2023 1 1 [facility] for referral (narrative)* Diagnostic Procedure Only (Routine) - Closed Specialty Diagnoses / Procedures Referred By Contac t Referred To Contact US IMAGING Diagnoses Chronic renal failure, stage 3b (HCC) Procedures US KIDNEY/BLADDER US RETROPERITONEAL REAL TIME W/IMAGE COMPLETE Arash Mo MD [address] [place] [address] Us Imaging Referral ID Status Reason Start Date Expiration Date V isits Requested Visits Authorized [id number] Closed Auto-Generate d Referral 02/23/2022 03/25/2023 1 1 [facility] for referral (narrative)* Diagnostic Procedure Only (Routine) - Closed Specialty Diagnoses / Procedures Referred By Contac t Referred To Contact US IMAGING Diagnoses Thyroid nodule Procedures US THYROID/PARATHYROID US SOFT TISSUE HEAD & NECK REAL TIME IMGE Ghazala Cabrales MD [address] [place] [address] Us Imaging Referral ID Status Reason Start Date Expiration Date V isits Requested Visits Authorized [id number] Closed Auto-Generate d Referral 08/29/2022 09/28/2023 1 1 [facility] for visit Narrative* Diagnostic Procedure Only (Routine) - Closed Specialty Diagnoses / Procedures Referred By Contac t Referred To Contact XR IMAGING Diagnoses Hypercalcemia Hyperparathyroidism (HCC) Procedures DXA-FOREARM SKELETON DXA BONE DENSITY STUDY 1/>SITES APPENDICLR Ghazala Guzmán MD [address] [place] [address] Xr Imaging Referral ID Status Reason Start Date Expiration Date V isits Requested Visits Authorized [id number] Closed Auto-Generate d Referral 05/23/2022 06/22/2023 1 1 [facility] for visit Narrative* Diagnostic Procedure Only (Routine) - Closed Specialty Diagnoses / Procedures Referred By Contac t Referred To Contact US IMAGING Diagnoses Chronic renal failure, stage 3b (HCC) Procedures US KIDNEY/BLADDER US RETROPERITONEAL REAL TIME W/IMAGE COMPLETE Arash Mo MD [address] [place] [address] Us Imaging Referral ID Status Reason Start Date Expiration Date V isits Requested Visits Authorized [id number] Closed Auto-Generate d Referral 02/23/2022 03/25/2023 1 1 [facility] Diagnostic Procedure Only (Routine) - Closed Specialty Diagnoses / Procedures Referred By Imanac t Referred To Contact US IMAGING Diagnoses Thyroid nodule Procedures US THYROID/PARATHYROID US SOFT TISSUE HEAD & NECK REAL TIME IMGE Ghazala Cabrales MD [address] [place] [address] Us Imaging Referral ID Status Reason Start Date Expiration Date V isits Requested Visits Authorized [id number] Closed Auto-Generate d Referral 08/29/2022 09/28/2023 1 1 [facility] Summary Purpose Family History Relationship Condition Age at Onset Recorded Date/T ervin father Heart disease Unknown Unknown Not Specified Unknown Relationship Condition Age at Onset Recorded Date/T ervin father Heart disease Unknown Unknown mother Unknown Advance Directives Documents on File Type Date Recorded 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 Advance Directive(s) 12/16/2013 4:36 PM Documents on File Type Date Recorded 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 Advance Directive(s) 12/16/2013 4:36 PM [...] COMPUTED TOMOGRAPHY THORAX W/CONTRAST Arnol Daugherty MD [address] [place] [address] [place] [address] Ct Imaging Referral ID Status Reason Start Date Expiration Date Visits Requested Visits Authorized [id number] Pending Review Auto-Generat ed Referral 07/29/2022 02/25/2023 1 1 Specialty Diagnoses / Procedures Referred By Carline t Referred To Contact CT IMAGING Diagnoses Malignant neoplasm of colon, unspecified part of colon (HCC) Procedures CT ABD/PEL W IVCON CT ABD & PELVIS W/CONTRAST Arnol Daugherty MD [address] [place] [address] Ct Imaging Referral ID Status Reason Start Date Expiration Date Visits Requested Visits Authorized [id number] Pending Review Auto-Generat ed Referral 07/29/2022 02/25/2023 1 1 Specialty Diagnoses / Procedures Referred By Contac t Referred To Contact Nephrology Diagnoses Chronic renal failure, stage 3b (HCC) Procedures CONSULT TO KIDNEY MEDICINE OFFICE/OUTPATIENT [facility] 60-74 MINUTES Arnol Daugherty MD [address] [place] [address] [place] [address] Referral ID Status Reason Start Date Expiration Date Visits Requested Visits Authorized [id number] Authorized PCP Requested Referral 01/26/2022 01/26/2023 1 1 Specialty Diagnoses / Procedures Referred By Contac t Referred To Contact Ent - Otolaryngology Diagnoses Salivary stones Procedures CONSULT TO ENT Arnol Daugherty MD [address] [place] [address] [place] [address] Referral ID Status Reason Start Date Expiration Date Visits Requested Visits Authorized [id number] Ref Not Required PCP Requested Referral 07/14/2023 1 1 Specialty Diagnoses / Procedures Referred By Contac t Referred To Contact Nephrology Diagnoses Stage 3b chronic kidney disease (HCC) Hypercalcemia Procedures CONSULT TO KIDNEY MEDICINE OFFICE/OUTPATIENT [facility] 60-74 MINUTES Arnol Daugherty MD [address] [place] [address] [place] [address] Referral ID Status Reason Start Date Expiration Date Visits Requested Visits Authorized [id number] Authorized PCP Requested Referral 07/27/2022 07/27/2023 1 1 Specialty Diagnoses / Procedures Referred By Contac t Referred To Contact Ent - Otolaryngology Diagnoses Hypercalcemia Hyperparathyroid (HCC) Procedures CONSULT TO ENT Arnol Daugherty MD [address] [place] [address] [place] [address] Referral ID Status Reason Start Date Expiration Date Visits Requested Visits Authorized [id number] Ref Not Required PCP Requested Referral 01/25/2023 01/25/2024 1 1 Specialty Diagnoses / Procedures Referred By Contac t Referred To Contact CT IMAGING Diagnoses Cervicalgia Procedures CT NECK SOFT TISSUE WO IVCON CT SOFT TISSUE NECK W/O CONTRAST MATERIAL Ace Savage, DIE SINKING MACHINE OPERATOR.CLASSIFIED ADVERTISING CLERK [address] [place] [address] [place] [address] [place] [address] Referral ID Status Reason Start Date Expiration Date V isits Requested Visits Authorized [id number] Closed Auto-Generate d Referral 07/17/2022 08/16/2023 1 1 Specialty Diagnoses / Procedures Referred By Contac t Referred To Contact CT IMAGING Diagnoses Lung nodules Procedures CT CHEST W IVCON DIAGNOSTIC COMPUTED TOMOGRAPHY THORAX W/CONTRAST Arnol Daugherty MD [address] [place] [address] [place] [address] [place] [address] Referral ID Status Reason Start Date Expiration Date V isits Requested Visits Authorized [id number] Closed Auto-Generated Referral Financial Clearance Not Required 07/29/2022 02/25/2023 1 1 Specialty Diagnoses / Procedures Referred By Contac t Referred To Contact CT IMAGING Diagnoses Malignant neoplasm of colon, unspecified part of colon (HCC) Procedures CT ABD/PEL W IVCON CT ABD & PELVIS W/CONTRAST Arnol Daugherty MD [address] [place] [address] [place] [address] [place] [address] Referral ID Status Reason Start Date Expiration Date V isits Requested Visits Authorized [id number] Closed Auto-Generated Referral Financial Clearance Not Required [...] and content) DATE CREATED AUTHOR 08/29/[address] [facility] DATE CREATED AUTHOR AUTHOR'S ORGANIZ ATION 03/02/2022 [facility] DATE CREATED AUTHOR AUTHOR'S ORGANIZ ATION 08/09/2023 [facility] DATE CREATED AUTHOR AUTHOR'S ORGANIZ ATION 10/02/2024 [facility] DATE CREATED AUTHOR AUTHOR'S ORGANIZ ATION 12/14/2024 [facility] [employer] Source Comments (unrecognize d section and content) In the event this informatio n is protected by the Federal Confidentiality of Alcohol and Drug Abuse Patient Records regulations: The Federal rules restrict any use of the information to criminally investigate or prosecute any alcohol or drug abuse patient.[facility] the event this information is protected by the Federal Confidentiality of Alcohol and Drug Abuse Patient Records regulations: The Federal rules restrict any use of the information to criminally investigate or prosecute any alcohol or drug abuse patient.[facility] the event this information is protected by the Federal Confidentiality of Alcohol and Drug Abuse Patient Records regulations: The Federal rules restrict any use of the information to criminally investigate or prosecute any alcohol or drug abuse patient.[facility] the event this information is protected by the Federal Confidentiality of Alcohol and Drug Abuse Patient Records regulations: The Federal rules restrict any use of the information to criminally investigate or prosecute any alcohol or drug abuse patient.[facility] the event this information is protected by the Federal Confidentiality of Alcohol and Drug Abuse Patient Records regulations: The Federal rules restrict any use of the information to criminally investigate or prosecute any alcohol or drug abuse patient.[facility] the event this information is protected by the Federal Confidentiality of Alcohol and Drug Abuse Patient Records regulations: The Federal rules restrict any use of the information to criminally investigate or prosecute any alcohol or drug abuse patient.[facility] the event this information is protected by the Federal Confidentiality of Alcohol and Drug Abuse Patient Records regulations: The Federal rules restrict any use of the information to criminally investigate or prosecute any alcohol or drug abuse patient.[facility] the event this information is protected by the Federal Confidentiality of Alcohol and Drug Abuse Patient Records regulations: The Federal rules restrict any use of the information to criminally investigate or prosecute any alcohol or drug abuse patient.[facility] the event this information is protected by the Federal Confidentiality of Alcohol and Drug Abuse Patient Records regulations: The Federal rules restrict any use of the information to criminally investigate or prosecute any alcohol or drug abuse patient.[facility] the event this information is protected by the Federal Confidentiality of Alcohol and Drug Abuse Patient Records regulations: The Federal rules restrict any use of the information to criminally investigate or prosecute any alcohol or drug abuse patient.[facility] the event this information is protected by the Federal Confidentiality of Alcohol and Drug Abuse Patient Records regulations: The Federal rules restrict any use of the information to criminally investigate or prosecute any alcohol or drug abuse patient.[facility] the event this information is protected by the Federal Confidentiality of Alcohol and Drug Abuse Patient Records regulations: The Federal rules restrict any use of the information to criminally investigate or prosecute any alcohol or drug abuse patient.[facility] Hospital[facility] the event this information is protected by the Federal Confidentiality of Alcohol and Drug Abuse Patient Records regulations: The Federal rules restrict any use of the information to criminally investigate or prosecute any alcohol or drug abuse patient.[facility] the event this information is protected by the Federal Confidentiality of Alcohol and Drug Abuse Patient Records regulations: The Federal rules restrict any use of the information to criminally investigate or prosecute any alcohol or drug abuse patient.[facility] the event this information is protected by the Federal Confidentiality of Alcohol and Drug Abuse Patient Records regulations: The Federal rules restrict any use of the information to criminally investigate or prosecute any alcohol or drug abuse patient.[facility] Hospital[facility] the event this information is protected by the Federal Confidentiality of Alcohol and Drug Abuse Patient Records regulations: The Federal rules restrict any use of the information to criminally investigate or prosecute any alcohol or drug abuse patient.[facility] HospitalIn the event this information is protected by the Federal Confidentiality of Alcohol and Drug Abuse Patient Records regulations: The Federal rules restrict any use of the information to criminally investigate or prosecute any alcohol or drug abuse patient.[facility] the event this information is protected by the Federal Confidentiality of Alcohol and Drug Abuse Patient Records regulations: The Federal rules restrict any use of the information to criminally investigate or prosecute any alcohol or drug abuse patient.[facility] the event this information is protected by the Federal Confidentiality of Alcohol and Drug Abuse Patient Records regulations: The Federal rules restrict any use of the information to criminally investigate or prosecute any alcohol or drug abuse patient.[facility] HospitalIn the event this information is protected by the Federal Confidentiality of Alcohol and Drug Abuse Patient Records regulations: The Federal rules restrict any use of the information to criminally investigate or prosecute any alcohol or drug abuse patient.[facility] HospitalIn the event this information is protected by the Federal Confidentiality of Alcohol and Drug Abuse Patient Records regulations: The Federal rules restrict any use of the information to criminally investigate or prosecute any alcohol or drug abuse patient.[facility] HospitalIn the event this information is protected by the Federal Confidentiality of Alcohol and Drug Abuse Patient Records regulations: The Federal rules restrict any use of the information to criminally investigate or prosecute any alcohol or drug abuse patient.[facility] Hospital[facility] the event this information is protected by the Federal Confidentiality of Alcohol and Drug Abuse Patient Records regulations: The Federal rules restrict any use of the information to criminally investigate or prosecute any alcohol or drug abuse patient.[facility] the event this information is protected by the Federal Confidentiality of Alcohol and Drug Abuse Patient Records regulations: The Federal rules restrict any use of the information to criminally investigate or prosecute any alcohol or drug abuse patient.[facility] the event this information is protected by the Federal Confidentiality of Alcohol and Drug Abuse Patient Records regulations: The Federal rules restrict any use of the information to criminally investigate or prosecute any alcohol or drug abuse patient.[facility] HospitalIn the event this information is protected by the Federal Confidentiality of Alcohol and Drug Abuse Patient Records regulations: The Federal rules restrict any use of the information to criminally investigate or prosecute any alcohol or drug abuse patient.[facility] HospitalIn the event this information is protected by the Federal Confidentiality of Alcohol and Drug Abuse Patient Records regulations: The Federal rules restrict any use of the information to criminally investigate or prosecute any alcohol or drug abuse patient.[facility] HospitalIn the event this information is protected by [...] or prosecute any alcohol or drug abuse patient.[facility] HospitalIn the event this information is protected by the Federal Confidentiality of Alcohol and Drug Abuse Patient Records regulations: The Federal rules restrict any use of the information to criminally investigate or prosecute any alcohol or drug abuse patient.[facility] HospitalIn the event this information is protected by the Federal Confidentiality of Alcohol and Drug Abuse Patient Records regulations: The Federal rules restrict any use of the information to criminally investigate or prosecute any alcohol or drug abuse patient.[facility] HospitalIn the event this information is protected by the Federal Confidentiality of Alcohol and Drug Abuse Patient Records regulations: The Federal rules restrict any use of the information to criminally investigate or prosecute any alcohol or drug abuse patient.[facility] the event this information is protected by the Federal Confidentiality of Alcohol and Drug Abuse Patient Records regulations: The Federal rules restrict any use of the information to criminally investigate or prosecute any alcohol or drug abuse patient.[facility] the event this information is protected by the Federal Confidentiality of Alcohol and Drug Abuse Patient Records regulations: The Federal rules restrict any use of the information to criminally investigate or prosecute any alcohol or drug abuse patient.[facility] the event this information is protected by the Federal Confidentiality of Alcohol and Drug Abuse Patient Records regulations: The Federal rules restrict any use of the information to criminally investigate or prosecute any alcohol or drug abuse patient.[facility] the event this information is protected by the Federal Confidentiality of Alcohol and Drug Abuse Patient Records regulations: The Federal rules restrict any use of the information to criminally investigate or prosecute any alcohol or drug abuse patient.[facility] the event this information is protected by the Federal Confidentiality of Alcohol and Drug Abuse Patient Records regulations: The Federal rules restrict any use of the information to criminally investigate or prosecute any alcohol or drug abuse patient.[facility] the event this information is protected by the Federal Confidentiality of Alcohol and Drug Abuse Patient Records regulations: The Federal rules restrict any use of the information to criminally investigate or prosecute any alcohol or drug abuse patient.[facility] the event this information is protected by the Federal Confidentiality of Alcohol and Drug Abuse Patient Records regulations: The Federal rules restrict any use of the information to criminally investigate or prosecute any alcohol or drug abuse patient.[facility] Reason for Visit (unrecogniz ed section and [...] (HCC) Procedures DENOSUMAB INJECTION Arnol Daugherty MD [address] [place] [address] [place] [address] Sebastian Treat Marko [address] [place] [address] Referral ID Status Reason Start Date Expiration Date V isits Requested Visits Authorized [id number] Authorized 03/23/2022 09/23/2022 99 99 Reason Comments Chronic Kidney Disease Reason Comments Results Reason Comments Radiology US Reason Onset Date Comments Refill Request 05/18/2022 Reason Comments New Patient Specialty Diagnoses / Procedures Referred By Contac t Referred To Contact Endocrinology Diagnoses Hypercalcemia Procedures CONSULT TO ENDOCRINOLOGY OFFICE/OUTPATIENT NEW HIGH MDM 60-74 MINUTES Arnol Daugherty MD [address] [place] [address] [place] [address] Referral ID Status Reason Start Date Expiration Date V isits Requested Visits Authorized [id number] Closed PCP Requested Referral 04/03/2022 04/03/2023 1 [...] TISSUE NECK W/O CONTRAST MATERIAL Ace Savage, DIE SINKING MACHINE OPERATOR.[address] [place] [address] [place] [address] Referral ID Status Reason Start Date Expiration Date V isits Requested Visits Authorized [id number] Closed Auto-Generate d Referral 07/17/2022 08/16/2023 [address] Specialty Diagnoses / Procedures Referred By Contac t Referred To Contact CT IMAGING Diagnoses Lung nodules Procedures CT CHEST W IVCON DIAGNOSTIC COMPUTED TOMOGRAPHY THORAX W/CONTRAST Arnol Daugherty MD [address] [place] [address] [place] [address] [place] [address] Referral ID Status Reason Start Date Expiration Date V isits Requested Visits Authorized [id number] Closed Auto-Generated Referral Financial Clearance Not Required [...] End: February 28, 2025 MIGUELANGEL Ravi RN POWER GENERATING PLANT OPERATOR-C Attending Provider Active Start: February 28 End: [...] October 01, 2024 End: October 01, 2024 Crystal Grinder Relationship Specialty Start Date End Date TanyarhiannonLogan rodriguez Usha [address] [place] [address] PCP - General Family Practice 12/15/20 Crystal Grinder Relationship Specialty Start Date End Date Tanyarhiannonanamaria Logan Usha [address] [place] [address] PCP - General Family Practice 12/15/20 Crystal Grinder Relationship Specialty Start Date End Date Evangelista Logan Usha [address] [place] [address] PCP - General Family Practice 12/15/20 Crystal Grinder Relationship Specialty Start Date End Date Logan Gomez [address] [place] [address] PCP - General Family Practice 12/15/20 Crystal Grinder Relationship Specialty Start Date End Date Logan Gomez [address] [place] [place] [address] PCP - General Family Practice 12/15/20 Crystal Grinder Relationship Specialty Start Date End Date Logan Gomez [address] [place] [address] PCP - General Family Practice 12/15/20 Crystal Grinder Relationship Specialty Start Date End Date Lgoan Gomez [address] [place] [address] PCP - General Family Practice 12/15/20 Crystal Grinder Relationship Specialty Start Date End Date Logan Gomez [address] [place] [address] PCP - General Family Practice 12/15/20 Crystal Grinder Relationship Specialty Start Date End Date Logan Gomez [address] [place] [address] PCP - General Family Practice 12/15/20 Crystal Grinder Relationship Specialty Start Date End Date Logan Gomez [address] [place] [address] PCP - General Family Practice 12/15/20 Crystal Grinder Relationship Specialty Start Date End Date Logan Gomez [address] [place] [address] PCP - General Family Practice 12/15/20 Crystal Grinder Relationship Specialty Start Date End Date Logan Gomez [address] [place] [address] PCP - General Family Practice 12/15/20 Crystal Grinder Relationship Specialty Start Date End Date Logan Gomez [address] [place] [address] PCP - General Family Practice 12/15/20 Crystal Grinder Relationship Specialty Start Date End Date Logan Gomez [address] [place] [address] PCP - General Family Practice 12/15/20 Crystal Grinder Relationship Specialty Start Date End Date Logan Gomez [address] [place] [address] PCP - General Family Medicine 12/15/20 Crystal Grinder Relationship Specialty Start Date End Date Logan Gomez [address] [place] [address] PCP - General Family Medicine 12/15/20 Crystal Grinder Relationship Specialty Start Date End Date Logan Gomez [address] [place] [address] PCP - General Family Medicine 12/15/20 Crystal Grinder Relationship Specialty Start Date End Date Logan Gomez [address] [place] [address] PCP - General Family Medicine 12/15/20 Crystal Grinder Relationship Specialty Start Date End Date Logan Gomez [address] [place] [address] PCP - General Family Medicine 12/15/20 Crystal Grinder Relationship Specialty Start Date End Date Logan Gomez [address] [place] [address] PCP - General Family Medicine 12/15/20 Crystal Grinder Relationship Specialty Start Date End Date Logan Gomez [address] [place] [address] PCP - General Family Medicine 12/15/20 Crystal Grinder Relationship Specialty Start Date End Date EvangelistaLogan [address] [place] [address] PCP - General Family Medicine 12/15/20 Crystal Grinder Relationship Specialty Start Date End Date Evangelista Logan Kerr [address] [place] [address] PCP - General Family Medicine 12/15/20 Crystal Grinder Relationship Specialty Start Date End Date Logan Gomez [address] [place] [address] PCP - General Family Medicine 12/15/20 Crystal Grinder Relationship Specialty Start Date End Date Logan Gomez [address] [place] [address] PCP - General Family Medicine 12/15/20 Crystal Grinder Relationship Specialty Start Date End Date Evangelista Logan Kerr [address] [place] [address] PCP - General Family Medicine 12/15/20 Crystal Grinder Relationship Specialty Start Date End Date Logan Gomez [address] [place] [address] PCP - General Family Medicine 12/15/20 Crystal Grinder Relationship Specialty Start Date End Date Logan Gomez [address] [place] [address] PCP - General Family Medicine 12/15/20 Team Status: Inactive Member Role Status Dates Alan Adams DO Attending Provider Active Logan Gomez MD Primary Care Provider Active Crystal Grinder Relationship Specialty Start Date End Date Logan Gomez [address] [place] [address] PCP - General Family Medicine 12/15/20 Team [...] March 25, 2024 End: March 25, 2024 Crystal Grinder Relationship Specialty Start Date End Date Logan Gomez [address] [place] [address] PCP - General Family Medicine 12/15/20 Crystal Grinder Relationship Specialty Start Date End Date Logan Gomez [address] [place] [address] PCP - General Family Medicine 12/15/20 Crystal Grinder Relationship Specialty Start Date End Date Logan Gomez [address] [place] [address] PCP - General Family Medicine 12/15/20 Crystal Grinder Relationship Specialty Start Date End Date Logan Gomez MD [address] [place] [address] PCP - General Family Medicine 02/26/24 Crystal Grinder Relationship Specialty Start Date End Date Logan Gomez MD [address] [place] [address] PCP - General Family Medicine 02/26/24 Crystal Grinder Relationship Specialty Start Date End Date Logan Gomez MD [address] [place] [address] PCP - General Family Medicine 12/15/20 Crystal Grinder Relationship Specialty Start Date End Date Logan Gomez MD [address] [place] [address] PCP - General Family Medicine 02/26/24 Crystal Grinder Relationship Specialty Start Date End Date Logan Gomez MD [address] [place] [address] PCP - General Family Medicine 12/15/20 Crystal Grinder Relationship Specialty Start Date End Date Logan Gomez MD [address] [place] [address] PCP - General Family Medicine 12/15/20 Crystal Grinder Relationship Specialty Start Date End Date Logan Gomez MD [address] [place] [address] PCP - General Family Medicine 02/26/24 Crystal Grinder Relationship Specialty Start Date End Date Logan Gomez MD [address] [place] [address] PCP - General Family Medicine 12/15/20 Crystal Grinder Relationship Specialty Start Date End Date Logan Gomez MD [address] [place] [address] PCP - General Family Medicine 02/26/24 Team Status: Inactive Member Role Status Dates Logan Gomez MD Primary Care Provider Active S tart: February 28, 2025 End: February 28, 2025 MIGUELANGEL Ravi RN POWER GENERATING PLANT OPERATOR-C Attending Provider Active Start: February 28 End: [...] BE BASED ON THE PRIMARY CLINICAL RECORDS. [employer] provides no warranty or guarantee of the accuracy or completeness of information in this document.
--- NOTE | 2025-03-22 14:59 | XR_ITS ---
[place] [id number] Patient Name: ALEKSANDER KIRKPATRICK MRN: [id number] date: 1945 Sex: F Assigned Patient Location: ER Current Patient Location: ED.MAIN Accession/Order Number: [id number] Exam Date: 03/22/2025 17:04 Report Date: 03/22/2025 17:06 At the request of: GENEVIEVE RIVER MD Procedure: XR knee RT 2V RIGHT KNEE - 2 views CLINICAL HISTORY: pain COMPARISON: None FINDINGS: Moderate lateral and patellofemoral compartments joint space narrowing. Mild medial compartment joint space narrowing. Slight lateralization of the patella unclear if this is positional. XR/XR knee RT 2V IMPRESSION: Moderate degenerative change. Question slight lateralization the patella. Please clinically exam findings unclear if this is positional. If warranted, consider sunrise views Impression dictated by: Elliott Colmenares M.D. 03/22/2025 5:06 PM Dictation Location: [place] [address] Electronically authenticated by: [id number] Y Date: 03/22/2025 17:06
--- NOTE | 2025-03-22 14:59 | XR_ITS ---
[facility] [place] [id number] Patient Name: ALEKSANDER KIRKPATRICK MRN: [id number] date: 1945 Sex: F Assigned Patient Location: ER Current Patient Location: ED.MAIN Accession/Order Number: [id number] Exam Date: 03/22/2025 17:07 Report Date: 03/22/2025 17:08 At the request of: GENEVIEVE RIVER MD Procedure: XR hip RT 2V w/ pelvis Single view pelvis and 2 views right hip INDICATION: Pain COMPARISON: None FINDINGS: There is a subcapital right hip fracture with 90 degrees of abnormal angulation. Foreshortening noted. Remainder pelvis is intact. Mild degenerative change. XR/XR hip RT 2V w/ pelvis IMPRESSION: Subcapital hip fracture. No dislocation. Impression dictated by: Elliott Colmenares M.D. 03/22/2025 5:08 PM Dictation Location: [place] [address] Electronically authenticated by: [id number] Y Date: 03/22/2025 17:08
--- NOTE | 2025-03-22 15:02 | ECG_ITS ---
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 Measurements Intervals [place] Rate: 61 P: -26 CO: 140 QRS: -52 QRSD: 142 T: 41 QT: 446 QTc: 450 Interpretive Statements 1100 Sinus rhythm RIGHT BUNDLE BRANCH BLOCK 3514 Cannot rule out lateral myocardial infarction, age undetermined 9150 abnormal ECG Compared to ECG 04/09/2019 11:32:23 Left anterior fascicular block no longer present Left ventricular hypertrophy no longer present Myocardial infarct finding still present Electronically Signed On 03-23-2025 6:55:44 EDT by CALEB SMITH M.D.
--- NOTE | 2025-03-22 15:03 | ED_ITS ---
HPI HPI - General Adult General Chief complaint: Extremity Injury, Lower Stated complaint: OTHER Time Seen by Provider: 03/22/25 14:57 Source: patient Mode of arrival: ambulance History of Present Illness HPI narrative: 80-year-old female presents for right hip and knee pain. She was at a store and stepped off of a curb and fell and was unable to bear weight on her right leg. She did not hit her head and no other injury was sustained. This happened just before coming into the emergency department. Related Data Home Medications ?Medication ?Instructions ?Recorded ?Confirmed amlodipine 5 mg tablet 5 mg PO BID 04/18/23 5 carvedilol 6.25 mg tablet 6.25 mg PO Q12H 03/06/25 cyclobenzaprine 5 mg tablet 5 mg PO Q12H 03/06/2502/22 Previous Rx's ?Medication ?Instructions ?Recorded acetaminophen 650 mg 650 mg PO Q8H PRN pain #20 t abs 04/18/23 tablet,extended release (Tylenol 8 Hour) orphenadrine citrate 100 mg 100 mg PO BID PRN muscle s pasm #20 03/06/25 tablet,extended release tabs prednisone 20 mg tablet 40 mg (2 x 20 mg) PO DAILY 5 days 03/06/25 #10 tabs tramadol 50 mg tablet 50 mg PO Q12H PRN pain 3 day s #6 03/06/25 tabs Allergies Allergy/AdvReac Type Severity Reaction Status Date / Time Penicillins Allergy Mild possible Verified 03/06/25 09:08 guillain barre tetracycline Allergy Mild Rash Verified 03/06/25 09:08 Opioid HPI Opioid Management Most Recent Opioid Data: Last Pain Scale 7 Today, 15:13 Last NOV Pain Assessment Today, 15:13 Review of Systems ROS Narrative A ten point review of systems is negative except as noted above. PFSH PFS Social History Smoking status: Never smoker Little interest or pleasure in doing things: not at all Feeling down, depressed, or hopeless: not at all Exam Narrative Exam Narrative: Nurses note and vital signs reviewed and patient is not hypoxic. General: The patient appears well and in no apparent distress. Skin: Warm, dry, no pallor noted. There is no rash noted. Head: Normocephalic, atraumatic Eye: Normal conjunctiva, no drainage Ears, Nose, Mouth, and Throat: oral mucosa is moist. Nares patent. Cardiovascular: Regular Rate and Rhythm Respiratory: Patient is in no distress, no accessory muscle use, lungs are clear to auscultation, no wheezing, rales or rhonchi Back: non-tender GI: Soft and nontender Musculoskeletal: Right leg is shortened and externally rotated. Neurological: A&O, normal speech Psychiatric: Cooperative Constitutional Vital Signs, click to edit/add: Last Vital Signs Temp 97.9 F 03/22/25 14:51 Pulse 63 03/22/25 14:51 Resp 18 03/22/25 14:51 BP 157/67 H 03/22/25 14:51 Pulse Ox 96 03/22/25 14:51 O2 Del Method Room Air 03/22/25 14:51 Course Vital Signs Vital signs: Vital Signs Temperature 97.9 F 03/22/25 14:51 Pulse Rate 63 03/22/25 14:51 Respiratory Rate 18 03/22/25 14:51 Blood Pressure 157/67 H 03/22/25 14:51 Pulse Oximetry 96 03/22/25 14:51 Oxygen Delivery Method Room Air 03/22/25 14:51 Temperature 97.9 F 03/22/25 14:51 Pulse Rate 63 03/22/25 14:51 Respiratory Rate 18 03/22/25 14:51 Blood Pressure 157/67 H 03/22/25 14:51 Pulse Oximetry 96 03/22/25 14:51 Oxygen Delivery Method Room Air 03/22/25 14:51 Medical Decision Making [facility] Narrative Medical decision making narrative: Right hip fracture is identified, through the femoral neck. Case discussed with Dr. Stewart who request transfer to [facility] which will be accomplished today. Findings are discussed with the patient and her family. Differential Diagnosis Differential Diagnosis: Contusion, fracture Lab Data Lab results reviewed: Yes I reviewed the patient's lab results Labs: Lab Results 03/22/25 Range/Units 15:29 WBC 11.3 H (4.0-11.0) 10^3/uL RBC 3.15 L (4.20-5.40) 10^6/uL Hgb 9.5 L (12.0-16.0) g/dL Hct 29.4 L (36.0-48.0) % MCV 93.3 (81.0-99.0) fL MCH 30.2 (26.7-34.0) pg MCHC 32.3 (29.9-35.2) g/dL RDW 12.8 (11.0-15.0) % Plt Count 266 (150-450) 10^3/uL MPV 9.7 (9.5-13.5) fL Neut % (Auto) 75.7 H (43.0-75.0) % Lymph % (Auto) 12.6 L (20.5-60.0) % Nuckolls % (Auto) 7.8 (1.7-12.0) % Eos % (Auto) 3.2 (0.9-7.0) % Baso % (Auto) 0.3 (0.2-2.0) % Neut # (Auto) 8.5 H (1.4-6.5) 10^3/uL Lymph # (Auto) 1.4 (1.2-3.8) 10^3/uL Nuckolls # (Auto) 0.9 H (0.3-0.8) 10^3/uL Eos # (Auto) 0.4 (0.0-0.7) 10^3/uL Baso # (Auto) 0.0 (0.0-0.1) 10^3/uL Abs Immat Gran (auto) 0.04 H (0.00-0.03) 10^3/uL Imm/Tot Granulo (auto) 0.4 (0.0-0.5) % Sodium 133 L (136-145) mmol/L Potassium 4.9 (3.5-5.1) mmol/L Chloride 98 (98-107) mmol/L Carbon Dioxide 23.3 (21.0-32.0) mmol/L Anion Gap 16.6 BUN 32.0 H (7.0-18.0) mg/dL Creatinine 1.81 H (0.55-1.02) mg/dL Est GFR ( Amer) 33 L (>=60 mL/min/1.73m^2) Est GFR (Non-Af Amer) 27 L (>=60 mL/min/1.73m^2) BUN/Creatinine Ratio 17.7 Glucose 126 H (74-106) mg/dL Calcium 9.8 (8.5-10.1) mg/dL Imaging Data Right hip x-ray: My impression: Femoral neck fracture Knee shows no acute finding Discharge Plan Discharge Chief Complaint: Extremity Injury, Lower Clinical Impression: Closed fracture of right hip Patient Disposition: [facility] Time of Disposition Decision: 16:28 Condition: Good Mode of Transportation: EMS
[2025-03-22] MEDS: ONDANSETRON PF 4 MG/2 ML VIAL IV (15:13)
[2025-03-22] MEDS: MORPHINE SULFATE 4 MG/ML VIAL IV ×2 (15:13→17:39)
[2025-03-22 15:36] LABS: Basophils Percent Auto 0.3 % (0.2-2.0); Eosinophils Absolute Auto 0.4 10^3/uL (0.0-0.7); Eosinophils Percent Auto 3.2 % (0.9-7.0); Hematocrit 29.4 % (36.0-48.0); Hemoglobin 9.5 g/dL (12.0-16.0); Immature Granulocytes Abs Auto 0.04 10^3/uL (0.00-0.03); Immature Granulocytes Pct Auto 0.4 % (0.0-0.5); Lymphocytes Absolute Auto 1.4 10^3/uL (1.2-3.8); Lymphocytes Percent Auto 12.6 % (20.5-60.0); Mean Corpuscular HGB Conc 32.3 g/dL (29.9-35.2); Mean Corpuscular Hemoglobin 30.2 pg (26.7-34.0); Mean Corpuscular Volume 93.3 fL (81.0-99.0); Mean Platelet Volume 9.7 fL (9.5-13.5); Monocytes Absolute Auto 0.9 10^3/uL (0.3-0.8); Monocytes Percent Auto 7.8 % (1.7-12.0); Neutrophils Absolute Auto 8.5 10^3/uL (1.4-6.5); Neutrophils Percent Auto 75.7 % (43.0-75.0); Platelet Count 266 10^3/uL (150-450); Red Blood Count 3.15 10^6/uL (4.20-5.40); Red Cell Distribution Width 12.8 % (11.0-15.0); White Blood Count 11.3 10^3/uL (4.0-11.0)
[2025-03-22 15:57] LABS: Anion Gap 16.6; BUN Creatinine Ratio 17.7; Calcium 9.8 mg/dL (8.5-10.1); Carbon Dioxide 23.3 mmol/L (21.0-32.0); Chloride 98 mmol/L (98-107); Estimated GFR (African America 33 (>=60 mL/min/1.73m^2); Estimated GFR (Non-African Ame 27 (>=60 mL/min/1.73m^2); Glucose 126 mg/dL (74-106); Potassium 4.9 mmol/L (3.5-5.1); Sodium 133 mmol/L (136-145)
[2025-03-22] MEDS: PROMETHAZINE HCL 12.5 MG in 0.9 % SODIUM CHLORIDE 50 ML 202 MG IV (16:07)
[2025-03-22] MEDS: FENTANYL CITRATE/PF 100 MCG/2 ML VIAL 50 MCG IV (20:53)
[2025-03-22 20:55] VITALS: O2SAT 96
== END 2025-03-22 21:27 | disposition short-term general hospital (02) ==
PROVIDERS: Emergency Provider Emergency Medicine; PCP Family Medicine
DX: S72.011A Unspecified intracapsular fracture of right femur, initial encounter for closed fracture (principal); W10.1XXA Fall (on)(from) sidewalk curb, initial encounter
CPT/HCPCS: 36415; 73502; 73560; 80048; 85025; 93005; 96365; 96375; 96376; 99285; J2270; J2405; J2550; J3010

== ENCOUNTER 2025-04-15 14:49 | Outpatient (RCR) | payer MEDICARE, SELFPAY | END 2025-06-25 16:17 | disposition home or self-care (01) | LOC: PT 14:49 | PROVIDERS: PCP Family Medicine; Visit Provider Orthopaedic Surgery | DX: Z96.641 Presence of right artificial hip joint (principal); Z47.1 Aftercare following joint replacement surgery | CPT/HCPCS: 97110; 97112; 97163; 97530 ==